=== PATIENT | male | born 1940 | race Caucasian/White ===

== ENCOUNTER 2017-07-10 07:47 | Inpatient (IN) | payer OTHER ==
[~2017-07-10] VITALS: Ht 180.3 cm; Wt 156.1 kg
[~2017-07-10 07:47] MED LIST: AMMONIUM LACTA225 GM TOP; ASCORBIC ACID500 MG PO; ASPIR 8181 MG PO; ATORVASTATIN CA20 MG PO; BACTRIM DS TAB1 EACH PO; CLOBETASOL PROP15 G1 TOP; DESONIDE15 G1 TOP; DESONIDE5 GM; DOXYCYCLINE; DOXYCYCLINE HY100 MG PO; ECONAZOLE NITRA15 GM TP; FUROSEMIDE40 MG PO; GABAPENTIN600 MG PO; KETOCONAZOLE120 ML TOP; LANTUS 3ML100 UNITS/ SC; LYRICA50 MG PO; LYRICA75 MG PO; METOLAZONE5 MG PO; METOPROLOL TART25 MG PO; MINOCYCLINE HC100 MG PO; Mupirocin TOP; NOVOLOG100 UNIT/1; PANTOPRAZOLE SO40 MG PO; TERAZOSIN HCL5 MG PO; WARFARIN SODIU2.5 MG PO
[2017-07-10] MEDS ORDERED: VANCOMYCIN 1GM/NS 250 ML 250 ML IV STA (08:11)
[2017-07-10] MEDS ORDERED: FAMOTIDINE 20 MG/2 ML VIAL IV STA (08:11)
[2017-07-10] MEDS ORDERED: SODIUM CHLORIDE 0.9% 1000ML 1,000 ML IV STA (08:11)
[2017-07-10] MEDS ORDERED: SODIUM CHLORIDE 0.9% 1000ML 1,000 ML IV SCH (08:14)
[2017-07-10] MEDS ORDERED: FENTANYL CITRATE/PF 100MCG/2 ML INJ IV SCH (08:15)
[2017-07-10] MEDS ORDERED: ONDANSETRON HCL INJ 2 MG/ML VIAL IV PRN (08:15)
[2017-07-10] MEDS ORDERED: DEXTROSE 50% SYRINGE 50 ML IV PRN (08:15)
[2017-07-10 08:30] LABS: BASOPHILS % 0.2 % (0.0-1.0); EOSINOPHILS # (AUTO) 0.1 (0.0-0.4); EOSINOPHILS % 0.5 % (0.0-6.0); HEMATOCRIT 40.2 % (38.2-49.6); LYMPHOCYTES # (AUTO) 0.8 (1.0-3.2); LYMPHOCYTES % 6.6 % (18.0-39.1); MEAN CORPUSCULAR HGB CONC 32.3 g/dL (31-35); MEAN CORPUSCULAR VOLUME 83.6 fL (81-99); MONOCYTES # (AUTO) 0.9 (0.2-0.8); MONOCYTES % 7.3 % (4.4-11.3); NEUTROPHILS # (AUTO) 10.9 (2.1-6.9); PLATELET COUNT 137 x10e3/uL (140-360); RED BLOOD COUNT 4.81 x10e6/uL (4.3-5.7)
[2017-07-10] MEDS ORDERED: PIPER-TAZ 3.375 GM 50 ML IV SCH (08:30)
[2017-07-10 08:40] LABS: INR 2.73; PROTHROMBIN TIME 27.2 seconds (11.9-14.5)
[2017-07-10 08:42] LABS: PARTIAL THROMBOPLASTIN TIME 72.5 seconds (23.8-35.5)
[2017-07-10 08:49] LABS: ALBUMIN 3.3 g/dL (3.5-5.0); ALBUMIN/GLOBULIN RATIO 0.9 (0.8-2.0); ANION GAP 13.6 mmol/L (8-16); CALCIUM 8.6 mg/dL (8.4-10.2); CREATININE, SERUM 1.92 mg/dL (0.72-1.25); MAGNESIUM 1.5 MG/DL (1.3-2.1); POTASSIUM 3.6 mmol/L (3.5-5.1)
[2017-07-10 08:57] LABS: B-TYPE NATRIURETIC PEPTIDE2 42.8 pg/mL (0-100)
[2017-07-10] MEDS ORDERED: VANCOMYCIN 1GM/NS 250 ML 250 ML IV SCH (09:00)
[2017-07-10] MEDS: PANTOPRAZOLE 40 MG 10ML VIAL IV SCH (09:05)
[2017-07-10 09:08] LABS: THYROID STIMULATING HORMONE 1.793 uIU/mL (0.350-4.940)
[2017-07-10] MEDS ORDERED: SODIUM CHLORIDE 0.9% 1000ML 1,000 ML IV ONE (09:15)
[2017-07-10 09:50] LABS: BILIRUBIN,URINE NEGATIVE (NEGATIVE); KETONES,URINE NEGATIVE (NEGATIVE); LEUKOCYTE ESTERASE ,URINE NEGATIVE (NEGATIVE); NITRITE,URINE NEGATIVE (NEGATIVE); URINE UROBILINOGEN 1 mg/dL (0.2 - 1)
[2017-07-10 09:55] LABS: CLARITY,URINE HAZY (CLEAR); COLOR,URINE YELLOW (YELLOW); PROTEIN,URINE DIPSTICK 1+ (NEGATIVE)
[2017-07-10 09:58] LABS: BACTERIA,URINE FEW /HPF; EPITHELIAL CELLS,URINE FEW /LPF; WBC,URINE (MAN) 0-5 /HPF (0-5)
[2017-07-10] MEDS ORDERED: DIPHENHYDRAMINE HCL INJ 50 MG/ML VIAL IV ONE (10:00)
--- NOTE | 2017-07-10 10:07 | Diagnostic Imaging Report ---
EXAMINATION: CHEST SINGLE (PORTABLE) INDICATION: Possible cellulitis. COMPARISON: CT chest 08/14/2016. FINDINGS: AP view TUBES and LINES: Median sternotomy wires are present. LUNGS: Right lung is well inflated. Left lung is elevated consistent with known left hemidiaphragmatic elevation. There are bibasilar atelectasis. There is mild prominence of the central pulmonary vasculature, consistent with pulmonary venous congestion. PLEURA: No pleural effusion or pneumothorax. HEART AND MEDIASTINUM: Cardiac size is mildly enlarged. BONES AND SOFT TISSUES: No acute osseous lesion. 1.6 cm metallic object overlying the left hemithorax, of unknown significance. UPPER ABDOMEN: No free air under the diaphragm. IMPRESSION: 1. Persistently elevated left hemidiaphragm, previously present. 2. Central pulmonary venous congestion. 3. 1.6 cm nonspecific metallic object overlying the left hemithorax. Signed by: Dr. Dillan Ibrahim M.D. on 07/10/2017 10:03 AM
[2017-07-10] MEDS: ACETAMINOPHEN 325 MG TAB PO PRN (10:10)
[2017-07-10] MEDS ORDERED: METHYLPREDNISOLONE SOD SUCC 125 MG/2ML VIAL IV SCH (10:15)
[2017-07-10] MEDS ORDERED: LEVALBUTEROL HCL SOLN NEBU 1.25 MG/3 ML NEB INH ONE (10:15)
[2017-07-10] MEDS ORDERED: IPRATROPIUM BROMIDE 0.02% 2.5 ML NEB NEB ONE (10:15)
[2017-07-10] MEDS ORDERED: METHYLPREDNISOLONE SOD SUCC 125 MG/2ML VIAL ONE (10:27)
[2017-07-10 10:44] LABS: CREATINE KINASE MB 5.8 ng/mL (0-5.0)
[2017-07-10 10:57] LABS: ABG HCO3 36 mmol/L (23-28); ABG PCO2 60 mmHg (41-51); ABG PH 7.38 (7.31-7.41); ABG PO2 78 mmHg (80-105)
[2017-07-10] MEDS: PIPER-TAZ 3.375 GM 50 ML IV SCH ×2 (11:43→17:00)
[2017-07-10] MEDS ORDERED: FENTANYL CITRATE/PF 100MCG/2 ML INJ IV PRN (12:15)
[2017-07-10] MEDS: METHYLPREDNISOLONE SOD SUCC 40 MG/ML VIAL IV SCH ×2 (12:36→17:23)
[2017-07-10] MEDS: DOXYCYCLINE 100MG/NS 100ML 100 ML IV SCH (12:36)
[2017-07-10] MEDS: INSULIN REGULAR, HUMAN 100 UNIT/1 ML 3ML VIAL SQ SCH ×2 (12:39→17:25)
[2017-07-10] MEDS: IPRATROPIUM BROMIDE 0.02% 2.5 ML NEB NEB SCH ×2 (13:40→19:30)
[2017-07-10] MEDS: LEVALBUTEROL HCL SOLN NEBU 1.25 MG/3 ML NEB INH SCH ×2 (13:40→19:30)
[2017-07-10 14:00] LABS: ABG PH 7.41 (7.31-7.41)
[2017-07-10 14:01] LABS: ABG HCO3 36 mmol/L (23-28); ABG PCO2 57 mmHg (41-51); ABG PO2 96 mmHg (80-105)
[2017-07-10] MEDS ORDERED: MORPHINE SULFATE 2 MG/ML SYR IV PRN (14:30)
[2017-07-10 15:47] VITALS: BP 151/94
--- NOTE | 2017-07-10 15:49 | Consultation ---
DATE OF CONSULTATION: July 10, 2017 [facility] MD: Mauri Loco PRIMARY CARE SYSTEM: [facility]. HISTORY: Mr. Souza is a pleasant 77-year-old gentleman with acute respiratory failure. Patient was at his baseline status recently. Patient with history of recurrent leg lymphedema. He has had cellulitis several times in the past, including hospitalizations for this issue. He started to develop fevers and chills. In the emergency room, he had 100.6 temperature. He had red warm area to right medial thigh and posterior calf. This pattern is nonresolving status. Patient without significant pain, however. He decided to come to the emergency room for evaluation. The findings were cooberated. He was admitted and treated for cellulitis. However, the patient was having some increased shortness of breath. He was given BiPAP for salvage. On BiPAP, he is with 92% oxygen saturation. I am consulted. PAST MEDICAL HISTORY: CABG with bypass a few years back, hypertension, diabetes, obesity, chronic lymphedema in bilateral legs, chronic left hemidiaphragm elevation, osteoarthritis, peripheral vascular disease per 1 report, chronic kidney disease. MEDICATIONS: Medication list reviewed per electronic record. Includes Zosyn, doxycycline, and 1 dose of vancomycin antibiotic swan. He is on bronchodilators and steroids among other medicines. ALLERGIES: SITAGLIPTIN, EXENATIDE, QUINAPRIL. SOCIAL HISTORY: No smoking. No drinking. No drugs. The patient is from [place], [place], where they have wood stoves, but good ventilation where he lived for 8 years. Then he went to [place] for 35 years, and then to [place]. He always lived in the city in [place] and the [place] area. 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 FAMILY HISTORY: Noncontributory. REVIEW OF SYSTEMS: Cannot get reliably as he is on respiratory assist device. PHYSICAL EXAMINATION VITALS: Afebrile now. Vital signs stable on the BiPAP. Otherwise, he was with tachypnea per nurses. GENERAL: Calm with full face mask on in bed. HEENT: Normocephalic and atraumatic. NECK: Supple. Throat midline. LUNGS: Bilateral air entry. Few rhonchi at bases. No wheezes. CARDIOVASCULAR: S1 and S2. No murmurs, rubs or gallops. ABDOMEN: Soft and nontender. EXTREMITIES: No clubbing. No cyanosis. There is lymphedema throughout the legs, 3+ edema. INTEGUMENT: No rash. No purpura. LABS: Potassium 3.6, bicarbonate 35, BUN 30, creatinine 1.9. White count 13, hematocrit 40 and platelets 137,000. RADIOGRAPHY: CT of chest shows nonspecific pulmonary nodule on August 14, 2016, elevated left hemidiaphragm, otherwise mostly unremarkable at that time. Current chest x-ray shows persistently elevated left hemidiaphragm, possible early central pulmonary venous congestion, and nonspecific metallic body over the left hemithorax. IMPRESSION AND PLAN 1. Abnormal chest radiography, possible mild pulmonary venous congestion. 2. Abnormal chest radiography, significantly elevated left hemidiaphragm: Etiology unknown. Could be due to chronic scarring atelectasis versus diaphragmatic paralysis or other etiology. 3. Abnormal July 2016 chest radiography with pulmonary nodule present. 4. Acute respiratory failure, on BiPAP for salvage. 5. Possible obstructive sleep apnea by history, although he does not give any history of treatment and poor historian. 6. Chronic lymphedema. 7. Admit with acute right leg cellulitis. 8. Reported coronary artery disease and peripheral vascular disease. 9. Hypertension. 10. Diabetes. 11. Chronic osteoarthritis. 12. No history of asthma. No gastroesophageal reflux disease. No allergies cited. Continue BiPAP. Wean him slow as he tolerates. Continue aggressive antibiotics for the cellulitis. Patient will need some treatment with steroids and bronchodilators. However, once these are shown to be stabilizing or having enough steroids from the respiratory point of view, will want to wean rapidly given the cellulitis that he has actively. Bronchodilators will be given. Oxygen protocol when not on the BiPAP. 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 Recommendation for continuation and follow up of his sleep related issue for which he does not know what the treatment was. Will follow along closely. Continue to avoid nephrotoxic agents if feasible and preserve kidney function. DVT prophylaxis is indicated. Thank you very much, Dr. Loco, for allowing me the chance to participate in the care of Mr. Souza. Do not hesitate to contact me if I can help in any way. Job#: [id number] JESSICA THOMPSON
[2017-07-10] MEDS ORDERED: METOPROLOL TART50 MG PO (15:56)
[2017-07-10 16:00] VITALS: BP 190/91
[2017-07-10] MEDS ORDERED: HYDRALAZINE HCL 20 MG/ML VIAL IV PRN (17:30)
[2017-07-10] MEDS: METOPROLOL TARTRATE 50 MG TAB PO SCH (18:00)
[2017-07-10 20:00] VITALS: BP 153/60
[2017-07-10] MEDS: FUROSEMIDE INJ 10 MG/ML 4 ML VIAL IV SCH (21:00)
[2017-07-10] MEDS: CLINDAMYCIN 600MG/D5W 50ML 50 ML IV SCH (21:30)
[2017-07-11] VITALS (7 sets, daily range): BP systolic 138–178; BP diastolic 62–95
[2017-07-11] MEDS: CLINDAMYCIN 600MG/D5W 50ML 50 ML IV SCH ×4 (00:10→17:09)
[2017-07-11] MEDS: METHYLPREDNISOLONE SOD SUCC 40 MG/ML VIAL IV SCH ×2 (00:30→05:17)
[2017-07-11] MEDS: DOXYCYCLINE 100MG/NS 100ML 100 ML IV SCH (00:55)
[2017-07-11] MEDS: INSULIN REGULAR, HUMAN 100 UNIT/1 ML 3ML VIAL SQ SCH ×5 (01:42→21:00)
[2017-07-11] MEDS: IPRATROPIUM BROMIDE 0.02% 2.5 ML NEB NEB SCH ×4 (02:12→23:10)
[2017-07-11] MEDS: LEVALBUTEROL HCL SOLN NEBU 1.25 MG/3 ML NEB INH SCH ×4 (02:12→23:10)
[2017-07-11] MEDS ORDERED: SODIUM CHLORIDE 0.9% 50ML 50 ML ONE (05:38)
[2017-07-11] MEDS: FUROSEMIDE INJ 10 MG/ML 4 ML VIAL IV SCH (08:01)
[2017-07-11] MEDS: PANTOPRAZOLE 40 MG 10ML VIAL IV SCH (08:01)
[2017-07-11] MEDS: METOPROLOL TARTRATE 50 MG TAB PO SCH ×2 (08:02→17:09)
[2017-07-11] MEDS: FUROSEMIDE 40 MG TAB PO SCH (09:30)
[2017-07-11 09:45] LABS: INR 2.19; PROTHROMBIN TIME 22.9 seconds (11.9-14.5)
[2017-07-11 09:54] LABS: ALBUMIN 3.2 g/dL (3.5-5.0); ALBUMIN/GLOBULIN RATIO 0.8 (0.8-2.0); ANION GAP 17.7 mmol/L (8-16); CALCIUM 8.4 mg/dL (8.4-10.2); CREATININE, SERUM 2.08 mg/dL (0.72-1.25); PHOSPHORUS 3.5 MG/DL (2.3-4.7); POTASSIUM 3.7 mmol/L (3.5-5.1)
[2017-07-11 10:05] LABS: CREATINE KINASE MB 16.9 ng/mL (0-5.0)
[2017-07-11 10:06] LABS: PARTIAL THROMBOPLASTIN TIME 58.7 seconds (23.8-35.5)
[2017-07-11 10:29] LABS: BASOPHILS % 0.1 % (0.0-1.0); HEMOGLOBIN 13.1 g/dL (14.0-18.0); LYMPHOCYTES # (AUTO) 0.5 (1.0-3.2); LYMPHOCYTES % 4.1 % (18.0-39.1); MEAN CORPUSCULAR HEMOGLOBIN 27.1 pg (28-32); MEAN CORPUSCULAR VOLUME 84.7 fL (81-99); MONOCYTES # (AUTO) 0.3 (0.2-0.8); MONOCYTES % 2.2 % (4.4-11.3); NEUTROPHILS # (AUTO) 11.2 (2.1-6.9); NEUTROPHILS % 92.8 % (38.7-80.0); PLATELET COUNT 157 x10e3/uL (140-360); RED BLOOD COUNT 4.84 x10e6/uL (4.3-5.7)
[2017-07-11] MEDS ORDERED: METOLAZONE5 MG PO (10:39)
[2017-07-11] MEDS ORDERED: SERTRALINE HCL50 MG PO (10:39)
[2017-07-11] MEDS ORDERED: TERAZOSIN HCL5 MG PO (10:39)
[2017-07-11] MEDS ORDERED: WARFARIN SODIU2.5 MG PO ×2 (10:39)
[2017-07-11] MEDS ORDERED: WARFARIN SOD 2.5 MG TAB PO SCH (10:45)
[2017-07-11 10:55] LABS: MAGNESIUM 1.9 MG/DL (1.3-2.1)
[2017-07-11] MEDS: ASPIRIN 325 MG TAB PO SCH (11:16)
[2017-07-11] MEDS: PREGABALIN 75 MG CAP PO SCH ×2 (11:16→17:08)
[2017-07-11] MEDS: LACTOBACILLUS ACIDOPHILUS CAPSULE PO SCH ×2 (11:16→17:08)
[2017-07-11] MEDS: INSULIN DETEMIR 100 UNIT/ML PEN SQ SCH (11:16)
--- NOTE | 2017-07-11 11:45 | Diagnostic Imaging Report ---
EXAMINATION: CHEST SINGLE (PORTABLE) INDICATION: \S\SOB \[id number] \S\[id number] COMPARISON: 07/10/2017 FINDINGS: AP view TUBES and LINES: None. LUNGS: Limited by body habitus. Pulmonary vascular congestion. Elevated left hemidiaphragm with adjacent haziness. PLEURA: No pneumothorax. HEART AND MEDIASTINUM: Cardiac silhouette is obscured. Enlarged mediastinal silhouette. Median sternotomy wires. BONES AND SOFT TISSUES: No acute osseous lesion. Soft tissues are unremarkable. UPPER ABDOMEN: No free air under the diaphragm. IMPRESSION: Pulmonary vascular congestion. Elevated left hemidiaphragm with adjacent haziness, representing atelectasis or small pleural effusion, which is decreased from prior exam. Signed by: Dr. Tad Murillo MD on 07/11/2017 11:42 AM
[2017-07-11 14:04] LABS: BAND NEUTROPHILS % (MANUAL) 1 %; LYMPHOCYTES % (MANUAL) 4 % (19-48); MONOCYTES % (MANUAL) 2 % (3.4-9.0); NEUTROPHILS % (MANUAL) 93 % (40-74); PLATELET ESTIMATE ADEQUATE; PLATELET MORPHOLOGY COMMENT NORMAL; RBC MORPHOLOGY COMMENT NORMAL
--- NOTE | 2017-07-11 14:52 | Progress Note ---
DATE: July 11, 2017 PULMONARY MEDICINE PROGRESS NOTE SUBJECTIVE: Mr. Souza was seen and examined at bedside. He continues to have great improvement over the 1st day. He is now off the BiPAP. He is sitting up comfortable on 3 L per minute by nasal cannula. He still has a lot of swelling to his legs. He did refuse in part to get Lasix today. Cellulitis looks a little bit better as well, and leg is less swollen. REVIEW OF SYSTEMS: No diarrhea. No double vision. OBJECTIVE VITALS: Afebrile. Vital signs noted per electronic record. GENERAL: In no acute distress. Alert and calm. HEENT: Normocephalic and atraumatic. NECK: Supple. Throat midline. LUNGS: Bilateral air entry. Few rare rhonchi. Much more clear today. CARDIOVASCULAR: S1 and S2. No murmurs, rubs or gallops. ABDOMEN: Soft and nontender. EXTREMITIES: No clubbing. No cyanosis. There is still the 3+ edema. INTEGUMENT: No rash. No purpura. LABS: Potassium 3.7, BUN 38, creatinine 2.1, glucose 505. CK 1633. Albumin is 3.2. INR is 2.19. White count 12. Blood culture with no growth at 24 hours. Urine culture no growth times 24 hours. Chest x-ray with pulmonary vascular congestion. Elevated left hemidiaphragm with distant haziness or present atelectasis or small pleural effusion, which has decreased from prior exam. IMPRESSION AND PLAN 1. Treat for possible fluid overload. 2. Acute respiratory failure, resolving. 3. Significant obesity. 4. Suspect obstructive sleep apnea. 5. Elevated hemidiaphragm and suspicion for intrathoracic restriction. 6. Probable secondary pulmonary hypertension. 7. Admit for cellulitis, right leg and edema. Follow up INR on the warfarin. Start incentive spirometry as x-ray is improving. We recommend more diuresis and followup of his kidney function, although he is partially deferring some medication dosing. Will follow along closely. The patient will have steroids stopped given the significant improvement. Furthermore, sliding scale coverage insulin will also be given to ensure better control. Repeat another chest x-ray tomorrow. Repeat blood work in the morning. Job#: [id number] JESSICA
--- NOTE | 2017-07-11 15:42 | Cardiology Report ---
DATE OF STUDY: July 10, [address] Fadi Canales. DOPPLER SCAN OF LOWER EXTREMITY VEINS The lower extremity veins were interrogated using the duplex scanning method. The greater saphenous veins bilaterally were nonvisualized. Elsewhere the veins were compressible without definite deep venous thrombosis. CONCLUSIONS: 1. Nonvisualized greater saphenous veins bilaterally. 2. In the areas well visualized, no definite deep venous thrombosis could be identified bilaterally. 3. Suboptimal study. Job#: [id number] EV cc:FADI CANALES MD
[2017-07-11] MEDS: METOLAZONE 5 MG TAB PO SCH (17:08)
[2017-07-11] MEDS ORDERED: INSULIN DETEMIR 100 UNIT/ML PEN SQ SCH (21:00)
[2017-07-11] MEDS: ATORVASTATIN 20 MG TAB PO SCH (21:06)
[2017-07-11] MEDS: TERAZOSIN HCL 5 MG CAP PO SCH (21:07)
[2017-07-12] VITALS: BP 135/56
[2017-07-12] MEDS: CLINDAMYCIN 600MG/D5W 50ML 50 ML IV SCH ×4 (00:44→17:08)
[2017-07-12 04:00] VITALS: BP 119/58
--- NOTE | 2017-07-12 06:25 | Diagnostic Imaging Report ---
CHEST SINGLE (PORTABLE), 07/12/2017 5:00 AM Technique: CHEST SINGLE (PORTABLE) Comparison: 07/11/2017 Clinical history: CHF Findings: See Impression Impression: Limited by body habitus and portable technique and motion. 1. Enlarged visualized cardiomediastinal contours poststernotomy, accentuated by technique. 2. Elevated left hemidiaphragm with overlying opacity, favor atelectasis. Signed by: Dr Albnaia Barakat MD on 07/12/2017 6:22 AM
[2017-07-12 06:41] LABS: BASOPHILS % 0.1 % (0.0-1.0); EOSINOPHILS % 0.1 % (0.0-6.0); HEMATOCRIT 37.9 % (38.2-49.6); HEMOGLOBIN 11.9 g/dL (14.0-18.0); LYMPHOCYTES # (AUTO) 1.3 (1.0-3.2); LYMPHOCYTES % 11.4 % (18.0-39.1); MEAN CORPUSCULAR HEMOGLOBIN 27.1 pg (28-32); MEAN CORPUSCULAR HGB CONC 31.4 g/dL (31-35); MEAN CORPUSCULAR VOLUME 86.3 fL (81-99); MONOCYTES % 8.3 % (4.4-11.3); NEUTROPHILS # (AUTO) 9.3 (2.1-6.9); NEUTROPHILS % 79.8 % (38.7-80.0); PLATELET COUNT 134 x10e3/uL (140-360); RED BLOOD COUNT 4.39 x10e6/uL (4.3-5.7); RED CELL DISTRIBUTION WIDTH 15.3 % (11.7-14.4)
[2017-07-12 06:53] LABS: INR 1.93; PROTHROMBIN TIME 20.7 seconds (11.9-14.5)
[2017-07-12] MEDS: LEVALBUTEROL HCL SOLN NEBU 1.25 MG/3 ML NEB INH SCH ×3 (06:58→23:02)
[2017-07-12] MEDS: IPRATROPIUM BROMIDE 0.02% 2.5 ML NEB NEB SCH ×3 (06:59→23:02)
[2017-07-12 07:13] LABS: ANION GAP 13.7 mmol/L (8-16); CALCIUM 8.1 mg/dL (8.4-10.2); CHOL/HDL RATIO 4.3 (3.9-4.7); CREATININE, SERUM 2.08 mg/dL (0.72-1.25); MAGNESIUM 1.8 MG/DL (1.3-2.1); POTASSIUM 3.7 mmol/L (3.5-5.1)
[2017-07-12 08:06] VITALS: BP 115/55
[2017-07-12 08:38] VITALS: BP 115/55
[2017-07-12] MEDS: PREGABALIN 75 MG CAP PO SCH ×2 (08:43→17:08)
[2017-07-12] MEDS: FUROSEMIDE 40 MG TAB PO SCH (08:43)
[2017-07-12] MEDS: METOPROLOL TARTRATE 50 MG TAB PO SCH ×2 (08:43→20:59)
[2017-07-12] MEDS: LACTOBACILLUS ACIDOPHILUS CAPSULE PO SCH ×2 (08:43→17:08)
[2017-07-12] MEDS: ASPIRIN 325 MG TAB PO SCH (08:43)
[2017-07-12] MEDS: METOLAZONE 5 MG TAB PO SCH ×2 (08:44→17:08)
[2017-07-12] MEDS: SERTRALINE HCL 50 MG TAB PO SCH (08:44)
[2017-07-12] MEDS: WARFARIN SOD 2.5 MG TAB PO SCH (08:44)
[2017-07-12] MEDS: INSULIN REGULAR, HUMAN 100 UNIT/1 ML 3ML VIAL SQ SCH ×4 (08:44→21:05)
[2017-07-12] MEDS: INSULIN DETEMIR 100 UNIT/ML PEN SQ SCH ×2 (08:45→21:05)
[2017-07-12] MEDS ORDERED: SODIUM CHLORIDE 0.45% 1,000 ML IV SCH (10:15)
[2017-07-12 12:00] VITALS: BP 117/50
--- NOTE | 2017-07-12 12:48 | Progress Note ---
DATE: July 12, 2017 PULMONARY MEDICINE PROGRESS NOTE SUBJECTIVE: Mr. Souza was seen and examined at bedside. He continues to have slow progress. CK level still increasing for now. The patient remains with improved ability to walk and ambulate. Oxygen saturation 96%. Five liters per minute by nasal cannula. He is off the rescue BiPAP for the most part. Patient with continued blood cultures that were noted to come back positive. Two out of two blood cultures came back positive. Patient, however, with leg slowly improving based on the physical appearance. Still some redness but less than before. REVIEW OF SYSTEMS: No headaches, no rash. OBJECTIVE VITAL SIGNS: Afebrile. Vital signs noted per electronic record. GENERALLY: No acute distress, , alert, calm, slight improvement in overall color. HEENT: Normocephalic, atraumatic. NECK: Supple. Throat midline. LUNGS: Bilateral air entry, a few rare rhonchi. CARDIOVASCULAR: S1 and S2. No murmurs, rubs or gallops. ABDOMINAL: Soft, nontender. EXTREMITIES: No clubbing, no cyanosis. There is still the 2 to 3+ edema. INTEGUMENT: No rash. No purpura. LABS: White count 12, hematocrit 37, platelets 134. INR 1.93. Bun 32, creatinine 2.1, potassium 3.7. Magnesium 1.8. CK 2297. Glucose 270. IMPRESSION AND PLAN 1. Gram-positive bacteremia. 2. Severe right leg cellulitis. 3. Acute respiratory failure, resolving. 4. Mild fluid overload. 5. Significant lymphedema. 6. Elevated hemidiaphragm, likely secondary to pulmonary hypertension. 7. Likely obstructive sleep apnea. Continue to mobilize him. Wean off oxygen. Repeat blood work tomorrow. Continue antibiotics for severe infection. Patient will need outpatient sleep study. Patient will also need further evaluation for the appropriate diuretic dose but for now will give him a little bit more fluid given the CK elevation. Will follow along closely. Job#: [id number] [place]
[2017-07-12 20:42] VITALS: BP 116/49
[2017-07-12] MEDS: TERAZOSIN HCL 5 MG CAP PO SCH (20:58)
[2017-07-12] MEDS: ATORVASTATIN 20 MG TAB PO SCH (21:05)
[2017-07-13] MEDS: CLINDAMYCIN 600MG/D5W 50ML 50 ML IV SCH ×4 (01:41→17:26)
[2017-07-13 05:00] VITALS: BP 117/44
[2017-07-13 06:46] LABS: BASOPHILS # (AUTO) 0.1 (0.0-0.1); BASOPHILS % 0.6 % (0.0-1.0); EOSINOPHILS # (AUTO) 0.3 (0.0-0.4); EOSINOPHILS % 3.4 % (0.0-6.0); HEMATOCRIT 39.9 % (38.2-49.6); HEMOGLOBIN 12.6 g/dL (14.0-18.0); LYMPHOCYTES % 20.5 % (18.0-39.1); MEAN CORPUSCULAR HGB CONC 31.6 g/dL (31-35); MEAN CORPUSCULAR VOLUME 85.4 fL (81-99); MONOCYTES # (AUTO) 0.9 (0.2-0.8); MONOCYTES % 9.4 % (4.4-11.3); NEUTROPHILS # (AUTO) 6.4 (2.1-6.9); NEUTROPHILS % 65.6 % (38.7-80.0); PLATELET COUNT 162 x10e3/uL (140-360); RED BLOOD COUNT 4.67 x10e6/uL (4.3-5.7); RED CELL DISTRIBUTION WIDTH 15.3 % (11.7-14.4)
[2017-07-13] MEDS: LEVALBUTEROL HCL SOLN NEBU 1.25 MG/3 ML NEB INH SCH ×3 (07:00→23:05)
[2017-07-13] MEDS: IPRATROPIUM BROMIDE 0.02% 2.5 ML NEB NEB SCH ×3 (07:00→23:05)
[2017-07-13 07:06] LABS: ANION GAP 12.8 mmol/L (8-16); CALCIUM 8.3 mg/dL (8.4-10.2); CREATININE, SERUM 1.83 mg/dL (0.72-1.25); POTASSIUM 3.8 mmol/L (3.5-5.1)
[2017-07-13] MEDS: INSULIN REGULAR, HUMAN 100 UNIT/1 ML 3ML VIAL SQ SCH ×4 (07:30→21:11)
[2017-07-13 08:00] VITALS: BP 137/73
[2017-07-13 08:00] LABS: INR 1.86; PROTHROMBIN TIME 20.1 seconds (11.9-14.5)
[2017-07-13] MEDS: FUROSEMIDE 40 MG TAB PO SCH ×2 (08:13→17:26)
[2017-07-13] MEDS: METOLAZONE 5 MG TAB PO SCH ×2 (08:13→17:26)
[2017-07-13] MEDS: LACTOBACILLUS ACIDOPHILUS CAPSULE PO SCH ×2 (08:13→17:26)
[2017-07-13] MEDS: PREGABALIN 75 MG CAP PO SCH ×2 (08:13→17:26)
[2017-07-13] MEDS: SERTRALINE HCL 50 MG TAB PO SCH (08:13)
[2017-07-13] MEDS: METOPROLOL TARTRATE 50 MG TAB PO SCH ×2 (08:14→21:12)
[2017-07-13] MEDS: INSULIN DETEMIR 100 UNIT/ML PEN SQ SCH ×2 (08:14→21:11)
[2017-07-13] MEDS: ASPIRIN 81 MG CHEW TAB PO SCH (08:14)
[2017-07-13] MEDS: WARFARIN SOD 2.5 MG TAB PO SCH (09:50)
[2017-07-13 12:00] VITALS: BP 149/60
--- NOTE | 2017-07-13 13:07 | Diagnostic Imaging Report ---
EXAM: CHEST SINGLE (PORTABLE), AP 1 view INDICATION: Congestive heart failure COMPARISON: AP view of the chest July 12, 2017 FINDINGS: LINES/TUBES: None LUNGS: Indeterminate opacity in the left lung base. PLEURA: The left hemidiaphragm is likely elevated. Indeterminate for effusion on the left. HEART AND MEDIASTINUM: Stable appearance given rotation. BONES AND SOFT TISSUES: No acute findings. IMPRESSION: No significant interval change given rotated exam. Signed by: Dr. Deidra De Los Santos M.D. on 07/13/2017 6:44 AM
--- NOTE | 2017-07-13 14:00 | Progress Note ---
DATE: July 13, 2017 PULMONARY MEDICINE PROGRESS NOTE SUBJECTIVE: Mr. Souza was seen and examined at bedside. Patient continues to have the blood cultures that are positive. Both of them have been identified as coagulase-negative staphylococcus. Patient with 94% oxygen saturation. Five liters per minute nasal cannula flow. Patient with moisture on legs. Was on fluids. REVIEW OF SYSTEMS: No headaches, no rash. OBJECTIVE VITAL SIGNS: Afebrile. Vital signs noted per electronic record. GENERALLY: No acute distress, alert and calm. HEENT: Normocephalic, atraumatic. NECK: Supple. Throat midline. LUNGS: Bilateral air entry, a few rhonchi. CARDIOVASCULAR: S1 and S2. No murmurs, rubs or gallops. ABDOMINAL: Soft, nontender. EXTREMITIES: No clubbing . INTEGUMENT: No rash. No purpura. IMPRESSION AND PLAN 1. Gram-positive cocci septicemia. 2. Severe cellulitis. 3. Chronic kidney disease. 4. Fluid overload clinically. 5. Acute respiratory failure, resolved mostly. Continue fluid status per primary physician. Soon will begin diuresis phase of therapy. Recheck blood cultures, ensure they go to negative. Clindamycin to be continued. Consideration of vancomycin if needed. Will follow along closely. Patient with improved CK and will check this tomorrow. Job#: [id number] [place]
[2017-07-13] MEDS ORDERED: DIPHENHYDRAMINE HCL 25 MG CAP PO PRN (14:30)
[2017-07-13 20:00] VITALS: BP 140/64
[2017-07-13] MEDS: ATORVASTATIN 20 MG TAB PO SCH (21:12)
[2017-07-13] MEDS: TERAZOSIN HCL 5 MG CAP PO SCH (21:12)
[2017-07-14] VITALS: BP 119/57
[2017-07-14] MEDS: CLINDAMYCIN 600MG/D5W 50ML 50 ML IV SCH ×3 (00:20→11:40)
[2017-07-14 04:00] VITALS: BP 127/52
[2017-07-14 06:53] LABS: BASOPHILS % 0.3 % (0.0-1.0); EOSINOPHILS # (AUTO) 0.4 (0.0-0.4); EOSINOPHILS % 4.8 % (0.0-6.0); HEMATOCRIT 39.1 % (38.2-49.6); HEMOGLOBIN 12.3 g/dL (14.0-18.0); LYMPHOCYTES # (AUTO) 1.6 (1.0-3.2); LYMPHOCYTES % 17.4 % (18.0-39.1); MEAN CORPUSCULAR HEMOGLOBIN 26.7 pg (28-32); MEAN CORPUSCULAR HGB CONC 31.5 g/dL (31-35); MEAN CORPUSCULAR VOLUME 84.8 fL (81-99); MONOCYTES # (AUTO) 1.1 (0.2-0.8); MONOCYTES % 11.9 % (4.4-11.3); NEUTROPHILS # (AUTO) 5.9 (2.1-6.9); NEUTROPHILS % 65.2 % (38.7-80.0); PLATELET COUNT 130 x10e3/uL (140-360); RED BLOOD COUNT 4.61 x10e6/uL (4.3-5.7); RED CELL DISTRIBUTION WIDTH 15.1 % (11.7-14.4)
[2017-07-14] MEDS: LEVALBUTEROL HCL SOLN NEBU 1.25 MG/3 ML NEB INH SCH ×3 (06:54→23:00)
[2017-07-14] MEDS: IPRATROPIUM BROMIDE 0.02% 2.5 ML NEB NEB SCH ×2 (06:54→17:00)
[2017-07-14 07:05] LABS: INR 1.97; PROTHROMBIN TIME 21.1 seconds (11.9-14.5)
[2017-07-14 07:26] LABS: ANION GAP 13.4 mmol/L (8-16); CALCIUM 8.3 mg/dL (8.4-10.2); CREATININE, SERUM 1.61 mg/dL (0.72-1.25); MAGNESIUM 1.6 MG/DL (1.3-2.1); POTASSIUM 3.4 mmol/L (3.5-5.1)
[2017-07-14] MEDS: INSULIN REGULAR, HUMAN 100 UNIT/1 ML 3ML VIAL SQ SCH ×4 (07:30→21:45)
[2017-07-14 07:34] VITALS: BP 143/56
[2017-07-14] MEDS: METOPROLOL TARTRATE 50 MG TAB PO SCH ×2 (08:15→21:24)
[2017-07-14] MEDS: LACTOBACILLUS ACIDOPHILUS CAPSULE PO SCH ×2 (08:15→17:09)
[2017-07-14] MEDS: FUROSEMIDE 40 MG TAB PO SCH (08:15)
[2017-07-14] MEDS: PREGABALIN 75 MG CAP PO SCH ×2 (08:15→17:09)
[2017-07-14] MEDS: METOLAZONE 5 MG TAB PO SCH ×2 (08:15→17:09)
[2017-07-14] MEDS: WARFARIN SOD 2.5 MG TAB PO SCH (08:15)
[2017-07-14] MEDS: SERTRALINE HCL 50 MG TAB PO SCH (08:15)
[2017-07-14] MEDS: INSULIN DETEMIR 100 UNIT/ML PEN SQ SCH ×2 (08:15→21:45)
[2017-07-14] MEDS: ASPIRIN 81 MG CHEW TAB PO SCH (08:15)
--- NOTE | 2017-07-14 13:00 | Progress Note ---
DATE: NO DICTATION, LENGTH 1 SECOND. Job#: [id number] MH
[2017-07-14] MEDS ORDERED: POTASSIUM CHLORIDE 20 MEQ TAB CR PO ONE (13:05)
[2017-07-14] MEDS ORDERED: ACETAZOLAMIDE SODIUM 500 MG/VIAL IV ONE (13:15)
[2017-07-14] MEDS ORDERED: VANCOMYCIN 1GM/NS 250 ML 250 ML IV SCH (13:30)
--- NOTE | 2017-07-14 13:30 | Progress Note ---
DATE: July 14, 2017 PULMONARY MEDICINE PROGRESS NOTE SUBJECTIVE: Mr. Souza was seen and examined at bedside. He continues to have slow progress. Still has a lot of swelling. IV fluids were locked off yesterday. He is walking a little bit more and more. Less dizziness. REVIEW OF SYSTEMS: No double vision. No headache. OBJECTIVE VITAL SIGNS: Afebrile. Vital signs noted per electronic record. GENERAL: No acute distress, alert and calm. HEENT: Normocephalic, atraumatic. NECK: Supple. Throat midline. LUNGS: Bilateral air entry, mildly decreased throughout, rare rhonchi, decreased especially at the right base. CARDIOVASCULAR: S1 and S2. No murmurs, rubs or gallops. ABDOMINAL: Soft, nontender. EXTREMITIES: No clubbing. No cyanosis. There is 3 to 4+ edema of right leg, 3+ edema to left leg. INTEGUMENT: No rash. No purpura. LABS: 3.4 potassium, 1.6 creatinine 49 BUN, 9.0 white count, 39 hematocrit, 130 platelets. Magnesium 1.6. IMPRESSION AND PLAN 1. Severe cellulitis. 2. Gram-positive cocci bacteremia, coagulase-negative staphylococcus. 3. Obesity, probably obstructive sleep apnea. 4. Obesity, possible obesity-hypoventilation syndrome. 5. Elevated hemidiaphragmatic thorax suggesting restrictive disease. 6. Possible secondary pulmonary hypertension. Continue diuretics. Will add a little bit of Diamox. Given the high creatinine, may need to lean a little bit more on loop diuretics. Follow up closely. Once again, patient recommended for resumption of positive airway pressure as an outpatient. He has pulmonary followup so consideration should be to go back to him to reinstate any positive airway pressure therapy that is needed whether it be home NIV versus PAP for sleep apnea. Will follow along closely. Repeat electrolytes tomorrow. Job#: [id number]
[2017-07-14] MEDS: LINEZOLID 600 MG TAB PO SCH ×2 (14:22→21:24)
[2017-07-14] MEDS: FUROSEMIDE INJ 10 MG/ML 4 ML VIAL IV SCH (17:09)
[2017-07-14] MEDS ORDERED: CLINDAMYCIN HCL 150 MG CAP PO SCH (18:00)
[2017-07-14] MEDS: TERAZOSIN HCL 5 MG CAP PO SCH (21:23)
[2017-07-14] MEDS: ATORVASTATIN 20 MG TAB PO SCH (21:23)
[2017-07-14] MEDS: OXYMETAZOLINE HCL 0.05% NAS 1 SPRAY BTL SCH (21:50)
[2017-07-15] MEDS: IPRATROPIUM BROMIDE 0.02% 2.5 ML NEB NEB SCH ×4 (01:35→14:15)
[2017-07-15] MEDS: LEVALBUTEROL HCL SOLN NEBU 1.25 MG/3 ML NEB INH SCH ×3 (01:36→23:00)
[2017-07-15 07:04] LABS: INR 2.06; PROTHROMBIN TIME 21.8 seconds (11.9-14.5)
[2017-07-15] MEDS: INSULIN REGULAR, HUMAN 100 UNIT/1 ML 3ML VIAL SQ SCH ×4 (07:30→21:05)
[2017-07-15 07:36] LABS: ANION GAP 13.6 mmol/L (8-16); CALCIUM 8.6 mg/dL (8.4-10.2); CREATININE, SERUM 1.79 mg/dL (0.72-1.25); MAGNESIUM 1.9 MG/DL (1.3-2.1); POTASSIUM 3.6 mmol/L (3.5-5.1)
[2017-07-15 08:00] VITALS: BP 113/62
[2017-07-15] MEDS: OXYMETAZOLINE HCL 0.05% NAS 1 SPRAY BTL SCH (09:00)
[2017-07-15] MEDS: WARFARIN SOD 2.5 MG TAB PO SCH (09:00)
[2017-07-15] MEDS: ASPIRIN 81 MG CHEW TAB PO SCH (09:00)
[2017-07-15] MEDS: METOPROLOL TARTRATE 50 MG TAB PO SCH ×2 (09:00→20:07)
[2017-07-15] MEDS: FUROSEMIDE INJ 10 MG/ML 4 ML VIAL IV SCH (09:00)
[2017-07-15] MEDS: INSULIN DETEMIR 100 UNIT/ML PEN SQ SCH ×2 (10:06→21:05)
[2017-07-15] MEDS: SERTRALINE HCL 50 MG TAB PO SCH (10:06)
[2017-07-15] MEDS: LACTOBACILLUS ACIDOPHILUS CAPSULE PO SCH ×2 (10:06→16:45)
[2017-07-15] MEDS: LINEZOLID 600 MG TAB PO SCH ×2 (10:06→21:05)
[2017-07-15] MEDS: PREGABALIN 75 MG CAP PO SCH ×2 (10:06→16:45)
[2017-07-15] MEDS: METOLAZONE 5 MG TAB PO SCH ×2 (10:06→16:45)
[2017-07-15] MEDS ORDERED: CALCIUM CARBONATE 500 MG CHEWABLE TABS PO ONE (11:25)
[2017-07-15 12:00] VITALS: BP 142/72
[2017-07-15] MEDS: FAMOTIDINE 20 MG TAB PO SCH (12:02)
--- NOTE | 2017-07-15 13:34 | Progress Note ---
DATE: July 15, 2017 PULMONARY MEDICINE PROGRESS NOTE SUBJECTIVE: Mr. Souza was seen and examined at bedside. He continues to have slow progress. He is tolerating the diuresis. However, blood pressure has fallen to about 118 systolic. Will continue to follow up. He is urinating a lot. Still with massive edema. Today, oxygen saturation was 84% on room air at rest. REVIEW OF SYSTEMS: No double vision. No headache. OBJECTIVE VITAL SIGNS: Afebrile. Vital signs noted per electronic record. GENERAL: No acute distress, alert and calm. HEENT: Normocephalic, atraumatic. NECK: Supple. Throat midline. LUNGS: Bilateral air entry, a few rare rhonchi. CARDIOVASCULAR: S1 and S2. No murmurs, rubs or gallops. ABDOMEN: Soft, nontender. EXTREMITIES: No clubbing. No cyanosis. There is 3+ edema. INTEGUMENT: No rash. No purpura. LABS: 52 BUN, 1.8 creatinine, 3.6 potassium, 9 white count, 39 hematocrit. IMPRESSION AND PLAN 1. Fluid overload, improving but definitely active. 2. Probably secondary to pulmonary hypertension. 3. Obstructive sleep apnea. 4. Obesity-hypoventilation. 5. Elevated hemidiaphragm. 6. Admit with severe cellulitis of the leg. 7. Possible gram-positive cocci bacteremia versus contamination. Blood cultures still pending. Will continue antibiotics at this time. Continue diuresis. Patient had home oxygen evaluation and qualified. We will try to arrange oxygen at home. Patient was recommended to try to adhere to treatment plans regarding sleep apnea and fluid overload and chronic hypoxemia. The patient cites that he has had issues in the past with most of these treatments, but our recommendations were given to him as high level to try to adhere to these specific recommendations. Will follow along closely as long as he is here. Discharge planning is underway. He needs very close followup with outpatient doctors. Job#: [id number]
[2017-07-15 16:00] VITALS: BP 145/79
[2017-07-15] MEDS ORDERED: LACTULOSE SYRUP 20 GM/30 ML UDC PO ONE ×2 (16:15)
[2017-07-15] MEDS ORDERED: FUROSEMIDE INJ 10 MG/ML 4 ML VIAL INJ SCH (17:00)
[2017-07-15] MEDS ORDERED: FUROSEMIDE 40 MG TAB PO SCH (18:00)
[2017-07-15] MEDS: TERAZOSIN HCL 5 MG CAP PO SCH (21:05)
[2017-07-15] MEDS: ATORVASTATIN 20 MG TAB PO SCH (21:05)
[2017-07-16] MEDS: LEVALBUTEROL HCL SOLN NEBU 1.25 MG/3 ML NEB INH SCH ×2 (07:00→13:15)
[2017-07-16] MEDS: IPRATROPIUM BROMIDE 0.02% 2.5 ML NEB NEB SCH ×2 (07:00→13:16)
[2017-07-16 08:18] VITALS: BP 141/60
[2017-07-16] MEDS: PREGABALIN 75 MG CAP PO SCH (08:18)
[2017-07-16] MEDS: METOPROLOL TARTRATE 50 MG TAB PO SCH (08:18)
[2017-07-16] MEDS: SERTRALINE HCL 50 MG TAB PO SCH (08:18)
[2017-07-16] MEDS: LINEZOLID 600 MG TAB PO SCH (08:18)
[2017-07-16] MEDS: FAMOTIDINE 20 MG TAB PO SCH (08:18)
[2017-07-16] MEDS: LACTOBACILLUS ACIDOPHILUS CAPSULE PO SCH (08:18)
[2017-07-16] MEDS: ASPIRIN 81 MG CHEW TAB PO SCH (08:18)
[2017-07-16] MEDS: INSULIN REGULAR, HUMAN 100 UNIT/1 ML 3ML VIAL SQ SCH ×2 (08:18→11:58)
[2017-07-16] MEDS: INSULIN DETEMIR 100 UNIT/ML PEN SQ SCH (08:18)
[2017-07-16] MEDS: METOLAZONE 5 MG TAB PO SCH (08:18)
[2017-07-16 08:21] VITALS: BP 141/66
[2017-07-16] MEDS: ACETAMINOPHEN 325 MG TAB PO PRN (08:34)
[2017-07-16 08:40] LABS: INR 1.97; PROTHROMBIN TIME 21.1 seconds (11.9-14.5)
[2017-07-16] MEDS ORDERED: FUROSEMIDE 40 MG TAB PO ONE (09:45)
[2017-07-16] MEDS: WARFARIN SOD 2.5 MG TAB PO SCH (10:12)
[2017-07-16 11:35] VITALS: BP 121/59
--- NOTE | 2017-07-16 12:23 | Progress Note ---
DATE: July 16, 2017 PULMONARY MEDICINE PROGRESS NOTE SUBJECTIVE: Mr. Souza was seen and examined at bedside. He continues to feel slightly better. Leg is less red. Legs also have less edema today. The patient, however, was converted to oral medicine as there is some loss of IV access, and the patient has some ideas about difficulties getting IV access. The patient is eating well. REVIEW OF SYSTEMS: No bleeding. No headache. OBJECTIVE VITAL SIGNS: Afebrile. Vital signs noted per electronic record. GENERAL: No acute distress, alert and calm. HEENT: Normocephalic, atraumatic. NECK: Supple. Throat midline. LUNGS: Bilateral air entry, decreased breath sounds throughout, rare rhonchi. CARDIOVASCULAR: S1 and S2. No murmurs, rubs or gallops. ABDOMEN: Soft, nontender. EXTREMITIES: No clubbing. No cyanosis. There is 3+ edema. INTEGUMENT: No rash. No purpura. IMPRESSION AND PLAN 1. Fluid overload. 2. Acute respiratory failure, improved. 3. Chronic respiratory failure. 4. Elevated hemidiaphragm. 5. Obstructive sleep apnea likely, not adherent. 6. Admit with acute right leg cellulitis. Continue current treatment. The patient will have further followup of fluid status. He will need electrolytes checked very soon. If not checked here, he will need them checked as an outpatient. Arbitrary when to discharge him as he is a readmit risk, but the patient is for the most part in strong belief that he can manage things as an outpatient. Antibiotics for the cellulitis. Follow up blood cultures to finalization, but they are negative so far on the new ones, so the first ones were likely contaminant. Job#: [id number]
[2017-07-16] MEDS ORDERED: ZYVOX600 MG PO (14:27)
--- NOTE | 2017-07-16 15:50 | Discharge Summary ---
PRIMARY CARE DOCTOR: Aleksey Jacobson MD FINAL DIAGNOSIS: Cellulitis. SECONDARY DIAGNOSES 1. Acute respiratory failure, resolved. 2. Stage-3 chronic kidney disease due to diabetes, stable. 3. Acute rhabdomyolysis, resolved. 4. Volume overload, better. 5. Paroxysmal atrial fibrillation on therapeutic Coumadin. BEVELING MACHINE OPERATOR: Dr. Lee, forestry fire aid. PROCEDURES/STUDIES PERFORMED: Bilateral lower extremity venous Doppler is negative for DVT. HISTORY: Per [facility] HOSPITAL COURSE: The patient was admitted. He developed allergic reaction to vancomycin. Therefore, clindamycin was used. It took a while for his redness to get better from the previous CABG vein-retrieval site. Subsequently, his blood culture came back coag-negative staph. This is likely a contaminant. His repeat blood cultures are negative. However, given this finding, his clindamycin was switched to Zyvox. Currently, the redness is completely gone. I will send him home on 5 more days of Zyvox to ensure complete clearance. The patient was diuresed as much as we can given his CKD, although he is going to need close followup. I have communicated this with his PCP. His CPK came down nicely with a little gentle hydration. Of course, this was followed by diuresis. His Coumadin is therapeutic for his paroxysmal atrial fibrillation. His creatinine remained relatively stable. CONDITION ON DISCHARGE: Stable. DISCHARGE MEDICATIONS: Please see medication reconciliation form. The patient was seen and examined today. It took 33 minutes total to discharge this patient. CARROLL LIMA M.D. Job#: [id number] cc:ALEKSEY JACOBSON MD
[2017-07-16] MEDS ORDERED: FUROSEMIDE 40 MG TAB PO SCH (17:00)
[2017-07-18] MEDS ORDERED: WARFARIN SOD 5 MG TAB PO SCH (09:00)
== END 2017-07-16 14:42 | disposition home or self-care (01) | DRG 871 ==
LOC: ER 07:47 → ERHOLD 09:29 → MED/SURG2 14:38
PROVIDERS: ADMIT Internal Medicine; ATTEND Internal Medicine
DX: A41.9 Sepsis, unspecified organism (principal); J96.00 Acute respiratory failure, unspecified whether with hypoxia or hypercapnia; Z68.42 Body mass index [BMI] 45.0-49.9, adult; M62.82 Rhabdomyolysis; L03.115 Cellulitis of right lower limb; E87.1 Hypo-osmolality and hyponatremia; E66.2 Morbid (severe) obesity with alveolar hypoventilation; E11.22 Type 2 diabetes mellitus with diabetic chronic kidney disease; E11.42 Type 2 diabetes mellitus with diabetic polyneuropathy; D21.9 Benign neoplasm of connective and other soft tissue, unspecified; I89.0 Lymphedema, not elsewhere classified; E78.5 Hyperlipidemia, unspecified; E11.51 Type 2 diabetes mellitus with diabetic peripheral angiopathy without gangrene; I12.9 Hypertensive chronic kidney disease with stage 1 through stage 4 chronic kidney disease, or unspecified chronic kidney disease; E11.65 Type 2 diabetes mellitus with hyperglycemia; M19.90 Unspecified osteoarthritis, unspecified site; I25.10 Atherosclerotic heart disease of native coronary artery without angina pectoris; N18.3 Chronic kidney disease, stage 3 (moderate); Z79.01 Long term (current) use of anticoagulants; I48.0 Paroxysmal atrial fibrillation; Z88.1 Allergy status to other antibiotic agents; E87.70 Fluid overload, unspecified; T36.8X5A Adverse effect of other systemic antibiotics, initial encounter; Y92.230 Patient room in hospital as the place of occurrence of the external cause; R65.20 Severe sepsis without septic shock; I27.20 Pulmonary hypertension, unspecified
CPT/HCPCS: 36415; 36600; 71045; 80048; 80053; 80061; 81001; 82550; 82553; 82805; 82948; 83036; 83605; 83690; 83735; 83880; 84100; 84443; 84484; 85025; 85610; 85730; 87040; 87071; 87086; 87186; 87205; 93005; 93970; 94640; 94660; 99284; J1200; J1940; J2543; J2920; J2930; J3370; J7030

== ENCOUNTER 2018-02-22 01:12 | Inpatient (IN) | payer OTHER ==
[2018-02-22] VITALS (9 sets, daily range): BP systolic 103–164; BP diastolic 26–96
[~2018-02-22] VITALS: Ht 180.3 cm; Wt 131.1 kg
[~2018-02-22 01:12] MED LIST changes: +METOPROLOL TART50 MG PO; +SERTRALINE HCL50 MG PO; +ZYVOX600 MG PO
[2018-02-22] MEDS ORDERED: SODIUM CHLORIDE 0.9% 1000ML 1,000 ML IV ONE ×2 (01:15)
[2018-02-22] MEDS ORDERED: CEFTRIAXONE SOD 1 GM VIAL IV ONE (01:15)
--- OUTSIDE RECORDS SUMMARY | 2018-02-22 01:15 | XMS REPORT ---
Author Author [facility] Address Unknown Phone Unavailable Care Team Providers Care Agricultural Specialist Name Role Phone IZAIAH IRENE Unavailable Unavailable Jae LIMA Unavailable Unavailable Problems This patient has no known problems. Allergies, Adverse Reactions, Alerts This patient has no known allergies or adverse reactions. Medications This patient has no known medications. Results Test Description Test Time Test Comments Text Results Atomic Results Result Comments CT, LIMITED/LOCALIZED FOLLOW-UP 2017-08-25 13:48:00 Reason for Exam:->lung nodule FINAL REPORT CT minimal. MEDICAL HISTORY: Lung nodule for potential lung biopsy. COMPARISON STUDY: CT scan dated July 28, 2014. CT scan of the thorax was performed for preprocedure planning. A 9 mm groundglass opacities in the left upper lobe on image 19. On July 28, 2014 this measured approximately 7 mm suggesting mild interval growth. It appears slightly more dense on today's study as well. Incidentally noted is significant tracheobronchomalacia with flattening of both the trachea and mainstem bronchi. Elevation of the left hemidiaphragm is seen with adjacent atelectasis or consolidation. The nodule is approximately 15.9 cm from the skin surface and is therefore not technically feasible for percutaneous biopsy, particularly given its small size. The results and findings were discussed with the patient and his . IMPRESSION: Slight increase in size over a three year span of groundglass/semisolid nodule in the left upper lobe. A slow-growing CONSTANTINE would be high in the differential. However, the nodule remains subcentimeter in size, is extremely deep and therefore not amenable to percutaneous biopsy. Signed: Izaiah Irene MDReport Verified Date/Time: 08/25/2017 13:48:03 Reading Location: [address] Body Reading Room /APTT 2017-08-25 11:46:00 PROTIME (BEAKER) (test obxi=372) 14.1 seconds 11.7-14.7 INR (BEAKER) (test japc=895) 1.1 <=5.9 PARTIAL THROMBOPLASTIN TIME (BEAKER) (test mdvs=816) 36.0 seconds 22.5-36.0 RECOMMENDED COUMADIN/WARFARIN INR THERAPY RANGESSTANDARD DOSE: 2.0 - 3.0 Inclu juanita: PROPHYLAXIS for venous thrombosis, systemic embolization; TREATMENT for adriana ous thrombosis and/or pulmonary embolus.HIGH RISK: Target INR is 2.5-3.5 for pat ients with mechanical heart valves.PLATELET [id number] 11:39:00* Test Item Value Reference Range Comments PLATELET COUNT (BEAKER) (test pyeo=886) 182 K/CU MM 150-450 CHEST SINGLE (PORTABLE) [place] [address] Patient Name: TONEY NAVA MR #: [id number] : 1940 Age/Sex: 77/M Req #: [id number] Adm Physician: CARROLL LIMA MD Ordered by: DENIS GRANADOS MD Report #: [id number] Location: MED/SURG2 Room/Bed: [facility] Procedure: [id number] DX/CHEST SINGLE (PORTABLE) Exam Date: 07/13/17 Exam Time: 0610 REPORT STATUS: Signed EXAM: CHEST SINGLE (PORTABLE), AP 1 v iew INDICATION: Congestive heart failure COMPARISON: AP view of the chest [facility] 2017 FINDINGS: LINES/TUBES: None LUNGS: Indeterminate opacit y in the left lung base. PLEURA: The left hemidiaphragm is likely elevated . Indeterminate for effusion on the left. HEART AND MEDIASTINUM: Stable a ppearance given rotation. BONES AND SOFT TISSUES: No acute findings. IMPRESSION: No significant interval change given rotated exam. Sign ed by: Dr. Umer De Los Santos M.D. on 07/13/2017 6:44 AM Dictated By: UMER DE LOS SANTOS MD 3 Trans cribed By: ANAT on 07/13/17643 COPY TO: DENIS GRANADOS MD CHEST SINGLE (PORTABLE) [place] [address] Patient Name: TONEY NAVA MR #: [id number] : 1940 Age/Sex: 77/M Req #: [id number] Adm Physician: CARROLL LIMA MD Ordered by: DENIS GRANADOS MD Report #: [id number] Location: [facility] Room/Bed: [facility] Procedure: [id number] DX/CHEST SINGLE (PORTABLE) Exam Date: 07/12/17 Exam Time: 0535 REPORT STATUS: Signed CHEST SINGLE (PORTABLE), 07/12/2017 5: 00 AM Technique: CHEST SINGLE (PORTABLE) Comparison: 07/11/2017 Clinical history: CHF Findings: See Impression Impression: Limited by body habitus and portable technique and motion. 1. Enlarged visualized cardiomedia stinal contours poststernotomy, accentuated by technique. 2. Elevated left h emidiaphragm with overlying opacity, favor atelectasis. Signed by: Dr Bernardino Barakat MD on 07/12/2017 6:22 AM Dictated By: BERNARDINO BARAKAT MD Electr onically Signed By: BERNARDINO BARAKAT MD on 07/12/17621 Transcribed By: ANAT on 07/12/17621 COPY TO: DENIS GRANADOS MD CHEST SINGLE (PORTABLE) [place] [address] Patient Name: TONEY NAVA MR #: [id number] : 1940 Age/Sex: 77/M Req #: [id number] Adm Physician: CARROLL LIMA MD Ordered by: CARROLL LIMA MD Report #: [id number] Location: MED/SURG2 Room/Bed: [facility] Procedure: [id number] X/CHEST SINGLE (PORTABLE) Exam Date: 07/11/17 Exam T johnny: 1055 REPORT STATUS: Signed EXAMINATION: CHEST SINGLE (PORTABLE) INDICATION: COMPARISON: 07/10/2017 FINDING S: AP view TUBES and LINES: None. LUNGS: Limited by body habitus . Pulmonary vascular congestion. Elevated left hemidiaphragm with adjacent haziness. PLEURA: No pneumothorax. HEART AND MEDIASTINUM: Cardiac si lhouette is obscured. Enlarged mediastinal silhouette. Median sternotomy wires . BONES AND SOFT TISSUES: No acute osseous lesion. Soft tissues are unremarkable. UPPER ABDOMEN: No free air under the diaphragm. IMP RESSION: Pulmonary vascular congestion. Elevated left hemidiaphragm with ad jacent haziness, representing atelectasis or small pleural effusion, which is decreased from prior exam. Signed by: Dr. Tad Yeh MD on 018 11:42 AM Dictated By: TAD YEH MD 114 Transcribed By: ANAT on 07/11/17 1142 C OPY TO: CARROLL LIMA MD CHEST SINGLE (PORTABLE) [place] [id number] [place] [address] Patient Name: TONEY NAVA MR #: [id number] : 1940 Age/Sex: 77/M Req #: [id number] Adm Physician: CARROLL LIMA MD Ordered by: ALEX CANALES MD, MD Report #: [id number] Location: [facility] Room/Bed: [place] [address] Procedure: [id number] DX/CHEST SINGLE (PORTABLE) Exam Date: 07/10/17 Ex am Time: 0920 REPORT STATUS: Signed EXAMINATION: CHEST SINGLE (PORTABL E) INDICATION: Possible cellulitis. COMPARISON: CT chest 07/26. FINDINGS: AP view TUBES and LINES: Median sternotomy wires are present. LUNGS: Right lung is well inflated. Left lung is eleva ryne consistent with known left hemidiaphragmatic elevation. There are bibasil ar atelectasis. There is mild prominence of the central pulmonary vasculature, consistent with pulmonary venous congestion. PLEURA: No pleural effusion or pneumothorax. HEART AND MEDIASTINUM: Cardiac size is mildly enlarged. BONES AND SOFT TISSUES: No acute osseous lesion. 1.6 cm metallic object overlying the left hemithorax, of unknown significance. UPPER ABDOMEN: No free air under the diaphragm. IMPRESSION: 1. Persistently elevated left hemidiaphragm, previously present. 2. Central pulmonary venous kyler estion. 3. 1.6 cm nonspecific metallic object overlying the left hemithorax. Signed by: Dr. Dillan Baca M.D. on 07/10/2017 10:03 AM Dictated By: DILLAN BACA MD 1003 Transcribed By: Brianna KHALIL on 07/10/17 1003 COPY TO: ALEX CANALES DUPLEX LWR B/L [place] [id number] [place] [address] Patient Name : TONEY NAVA MR #: [id number] : 1940 Age/Sex: 77/M Adm Physician : CARROLL LIMA MD Admit Date : 07/10/17 Location : MED/SURG2 Room/Bed : [facility] REPORT: Cardiology Repo rt DATE OF STUDY: July 10, [address] Alex toribio. DOPPLER SCAN OF LOWER EXTREMITY VEINS The lower extremity vei ns were interrogated using the duplex scanning method. The greater saphe nous veins bilaterally were nonvisualized. Elsewhere the veins were compress ible without definite deep venous thrombosis. CONCLUSIONS: 1. Nonvisual ized greater saphenous veins bilaterally. 2. In the areas well visualized, no definite deep venous thrombosis could be identified bilaterally. 3. Subopti mal study. Job#: [id number] EV cc: ALEX CANALES MD Signature Date Dicta ryne By: SOBIA MORRELL MD Transcribed By: EDS on 07/11/17 <Electronically signed by SOBIA MORRELL MD><<Signature on File>>07/12/17 7091 COPY TO:
--- OUTSIDE RECORDS SUMMARY | 2018-02-22 01:15 | XMS REPORT | Clinical Summary ---
Author Author JAYASHREE [facility] Organization [facility] Address Unknown Phone Unavailable Care Team Providers Care Salesperson [employer] Name Role Phone Shahab Chino MD PCP Unavailable Allergies Comments Active Allergy Reactions Severity Noted Date SWELLS Exenatide 12/24/2012 EFFECTS LIVER Sitagliptin 12/24/2012 Quinapril Swelling 02/03/2013 Medications End Date Status Medication Sig Dispensed Refills Start Date Active cefepime (MAXIPIME) MBP 1 Inject 1 g 0 g in 100 mL NS intravenously 5 daily. For 4 more days only Active lactulose (CHRONULAC) 20 Take 30 mLs 0 gram/30 mL solution (20 g total) 5 by mouth 2 (two) times daily. Active potassium chloride SA Take 1 tablet 0 (K-DUR,KLOR-CON) 20 MEQ (20 mEq 5 tablet total) by mouth daily. Active tamsulosin (FLOMAX) 0.4 Take 2 0 mg Cp24 24 hr capsule capsules (0.8 5 mg total) by mouth daily. Active aspirin 81 MG EC tablet Take 81 mg by 0 mouth daily. Active atorvastatin (LIPITOR) 80 Take 80 mg by 0 MG tablet mouth daily. Active betamethasone, augmented, Apply 0 (DIPROLENE) 0.05 % topically 2 ointment (two) times daily. Active furosemide (LASIX) 40 MG Take 40 mg by 0 tablet mouth daily. Active insulin aspart (NOVOLOG) Inject 35 0 100 unit/mL InPn Units subcutaneousl y 3 (three) times daily with meals. Active insulin detemir (LEVEMIR) Inject 67 0 100 unit/mL (3 mL) InPn Units injection subcutaneousl y 2 (two) times daily. Active Missing or Non-Formulary KETOCONAZOLE 0 Medication 2% 3-5X/WK . Active Missing or Non-Formulary 2 (two) times 0 Medication daily BETAMETHASONE DIPROPIONATE 0. 05% TO RASH . Active pregabalin (LYRICA) 150 Take 150 mg 0 MG capsule by mouth 2 (two) times daily. Active metOLazone (ZAROXOLYN) 5 Take 5 mg by 0 MG tablet mouth twice a week. Active metoprolol (LOPRESSOR) 25 Take 25 mg by 0 MG tablet mouth daily. Active pantoprazole (PROTONIX) Take 40 mg by 0 40 MG tablet mouth daily. Active terazosin (HYTRIN) 10 MG Take 10 mg by 0 capsule mouth nightly. Active warfarin (COUMADIN) 5 MG Take 5 mg by 0 tablet mouth daily TAKE 1 TAB DAILY EXCEPT 1.5 TABS MWF DIRECTED BY COUMADIN CLINIC. . 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 C 01/2013 showed occluded circumflex and OM1 with prograde collaterals. The right coronary artery showed a slight ostial lesion and the proximal RCA stent and 30-40% distal RCA lesion. [facility] 06/2014 at [facility]. Cath film reviewed by his pipe organ mechanic apprentice, Dr. Moeller, and she reported the following findings: LM 60% stenosis, RI 90%, LCx occluded, RCA distal 70%. Diabetes 02/01/2013 Mixed hyperlipidemia 02/01/2013 Benign essential hypertension 02/01/2013 Morbid obesity 02/01/2013 S/P coronary artery stent placement - RCA stent - [id number] 02/01/2013 Encounters Care Team Description Date Type Specialty John Paul Conklin MD Lung nodule 08/25/2017 Hospital Radiology Encounter Izaiah Irene MD Lung nodule (Primary Dx) 08/25/2017 Orders Only Lab John Paul Conklin MD Lung nodule (Primary Dx) 08/19/2017 Outside Orders Central Scheduling after 02/21/2017 Social History Date Tobacco Use Types Packs/Day Years Used Never Smoker Alcohol Use Drinks/Week oz/Week Comments No Sex Assigned at Date Recorded Not on file Industry Job Start Date Occupation Not on file Not on file Not on file Travel End Travel History Travel Start No recent travel history available. Last Filed Vital Signs Time Taken Vital Sign Reading 08/25/2017 1:05 PM CDT Blood Pressure 132/71 08/25/2017 1:05 PM CDT Pulse 64 08/25/2017 12:00 PM CDT Temperature 36.8 C (98.2 F) 08/25/2017 1:05 PM CDT Respiratory Rate 18 08/25/2017 1:05 PM CDT Oxygen Saturation 95% - Inhaled Oxygen - Concentration 08/25/2017 12:00 PM CDT Weight 135.2 kg (298 lb) 08/25/2017 12:00 PM CDT Height 175.3 cm (5' 9") 08/25/2017 12:00 PM CDT Body Mass Index 44.01 Plan of Treatment Not on file Implants Device Identifier Shelf Expiration Date Model / Serial / Lot Implanted Type Area Manufactur er 05/15/2019 08.501.001.20S / / [id number] Sternal Zipfix,With Needle Sterile Cardiovasc N/A: Sternum SYNTHES Pack Of 20 - [id number] [employer] Implanted: Qty: 1 on 07/18/2014 by Bertram Virk MD 05/15/2019 08.501.001.20S / / [id number] Sternal Zipfix,With Needle Sterile Cardiovasc N/A: Sternum SYNTHES Pack Of 20 - [id number] [employer] Implanted: Qty: 1 on 07/18/2014 by Bertram Virk MD Procedures Comments Procedure Name Priority Date/Time Associated Diagnosis CT LIMITED/LOCALIZED Routine 08/25/2017 FOLLOW-UP 1:32 PM CDT PLATELET COUNT STAT 08/25/2017 Lung nodule 11:02 AM CDT PT/APTT STAT 08/25/2017 Lung nodule 11:02 AM CDT after 02/21/2017 Results * CT LIMITED/LOCALIZED FOLLOW-UP (08/25/2017 1:32 PM CDT) Narrative Performed At FINAL REPORT [facility] CT minimal. MEDICAL HISTORY: Lung nodule for [...] amenable to percutaneous biopsy. Signed: Izaiah Irene MD Report Verified Date/Time:08/25/2017 13:48:03 Reading Location: [address] Body Reading Room Procedure Note Interface, External Ris In - 08/25/2017 1:50 PM CDT FINAL REPORT CT minimal. MEDICAL HISTORY: Lung [...] amenable to percutaneous biopsy. Signed: Izaiah Irene MD Report Verified Date/Time: 08/25/2017 13:48:03 Reading Location: [facility] C013Y CT Body Reading Room Performing Organization Address City/[facility] Centercode Phone Number GE RIS * PT/aPTT (08/25/2017 11:02 AM CDT) Protime 14.1 11.7 - 14.7 seconds [facility] INR 1.1 <=5.9 [facility] PTT 36.0 22.5 - 36.0 seconds [facility] Specimen Blood Narrative Performed At RECOMMENDED COUMADIN/WARFARIN INR THERAPY RANGES [facility] STANDARD DOSE: 2.0 - 3.0 Includes: PROPHYLAXIS for venous thrombosis, [facility] systemic embolization; TREATMENT for venous thrombosis and/or pulmonary embolus. HIGH RISK: Target INR is 2.5-3.5 for patients with mechanical heart valves. Performing Organization Address City/[facility] Centercode Phone Number [facility] [address] [place] [address] [facility] * Platelet count (08/25/2017 11:02 AM CDT) Platelets 182 150 - 450 K/CU MM [facility] Specimen Blood Performing Organization Address [facility] Centercode Phone Number [facility] [address] [place] [address] [facility] after 02/21/2017 Insurance Payer Benefit Subscriber ID Type Phone Address Plan / Group [employer] xxxxxxxxx Maps O ALL Contracted Advance Directives For more information, please contact: [facility] [address] [place] [address] Date Inactivated Comments Code Status Date Activated 08/01/2014 6:25 PM Full Code 07/17/2014 1:37 PM This code status was determined by: Patient 02/03/2013 6:33 PM All possible means of support, including: cardiac massage, mechanical ventilation, and defibrillation will be used to support life. Code ONE 02/03/2013 10:27 AM 02/03/2013 10:27 AM All possible means of support including;cardiac massage, mechanical ventilation, and defibrillation will be used to support life. Code ONE 02/03/2013 6:51 AM
--- OUTSIDE RECORDS SUMMARY | 2018-02-22 01:24 | XMS REPORT | Clinical Summary ---
Author Author JAYASHREE [facility] Organization [facility] Address Unknown Phone Unavailable Care Team Providers Care Oracle Ascp Consultant Name Role Phone Shahab Chino MD PCP [...] RCA stent and 30-40% distal RCA lesion. [facility] 06/2014 at [facility]. Cath film reviewed by his australian rules footballer, Dr. Moeller, and she reported the following findings: LM 60% stenosis, RI 90%, LCx occluded, RCA distal 70%. Diabetes 02/01/2013 Mixed hyperlipidemia 02/01/2013 Benign essential hypertension 02/01/2013 Morbid obesity 02/01/2013 S/P coronary artery stent placement - RCA stent - [id number] 02/01/2013 Encounters Care Team Description Date Type [...] Area Manufactur er 05/15/2019 08.501.001.20S / / [id number] Sternal Zipfix,With Needle Sterile Cardiovasc N/A: Sternum SYNTHES Pack Of 20 - [id number] [employer] Implanted: Qty: 1 on 07/18/2014 by Bertram Virk MD 05/15/2019 08.501.001.20S / / [id number] Sternal Zipfix,With Needle Sterile Cardiovasc N/A: Sternum SYNTHES Pack Of 20 - [id number] [employer] Implanted: Qty: 1 on 07/18/2014 by Bertram Virk MD Procedures Comments Procedure Name Priority Date/Time Associated Diagnosis CT LIMITED/LOCALIZED Routine 08/25/2017 FOLLOW-UP 1:32 PM CDT PLATELET COUNT STAT 08/25/2017 Lung nodule 11:02 AM CDT PT/APTT STAT 08/25/2017 Lung nodule 11:02 AM CDT after 02/21/2017 Results * CT LIMITED/LOCALIZED FOLLOW-UP (08/25/2017 1:32 PM CDT) Narrative Performed At FINAL REPORT [facility] CT minimal. MEDICAL HISTORY: Lung nodule for [...] MD Report Verified Date/Time:08/25/2017 13:48:03 Reading Location: [address] Body Reading Room Procedure Note [...] Report Verified Date/Time: 08/25/2017 13:48:03 Reading Location: [facility] C013Y CT Body Reading Room Performing Organization Address City/[facility] Servicescode Phone Number GE RIS * PT/aPTT (08/25/2017 11:02 AM CDT) Protime 14.1 11.7 - 14.7 seconds [facility] INR 1.1 <=5.9 [facility] PTT 36.0 22.5 - 36.0 seconds [facility] Specimen Blood Narrative Performed At RECOMMENDED COUMADIN/WARFARIN INR THERAPY RANGES [facility] STANDARD DOSE: 2.0 - 3.0 Includes: PROPHYLAXIS for venous thrombosis, [facility] systemic embolization; TREATMENT for venous thrombosis and/or pulmonary embolus. HIGH RISK: Target INR is 2.5-3.5 for patients with mechanical heart valves. Performing Organization Address City/[facility] Care Servicescode Phone Number [facility] [address] [place] [address] [facility] * Platelet count (08/25/2017 11:02 AM CDT) Platelets 182 150 - 450 K/CU MM [facility] Specimen Blood Performing Organization Address [facility] Servicescode Phone Number [facility] [address] [place] [address] [facility] after 02/21/2017 Insurance Payer Benefit Subscriber ID Type Phone Address Plan / Group [employer] xxxxxxxxx Maps O ALL Contracted Advance Directives For more information, please contact: [facility] [address] [place] [address] Date Inactivated Comments Code Status [...]
[2018-02-22 01:47] LABS: BASOPHILS % 0.3 % (0.0-1.0); EOSINOPHILS # (AUTO) 0.3 (0.0-0.4); EOSINOPHILS % 2.7 % (0.0-6.0); HEMATOCRIT 42.7 % (38.2-49.6); LYMPHOCYTES # (AUTO) 0.7 (1.0-3.2); LYMPHOCYTES % 6.1 % (18.0-39.1); MEAN CORPUSCULAR HEMOGLOBIN 29.2 pg (28-32); MEAN CORPUSCULAR HGB CONC 32.8 g/dL (31-35); MEAN CORPUSCULAR VOLUME 89.1 fL (81-99); MONOCYTES # (AUTO) 0.8 (0.2-0.8); MONOCYTES % 6.2 % (4.4-11.3); NEUTROPHILS # (AUTO) 10.3 (2.1-6.9); NEUTROPHILS % 84.3 % (38.7-80.0); PLATELET COUNT 257 x10e3/uL (140-360); RED BLOOD COUNT 4.79 x10e6/uL (4.3-5.7); RED CELL DISTRIBUTION WIDTH 14.2 % (11.7-14.4)
[2018-02-22 01:47] LABS: BILIRUBIN,URINE NEGATIVE (NEGATIVE); CLARITY,URINE CLEAR (CLEAR); COLOR,URINE YELLOW (YELLOW); KETONES,URINE NEGATIVE (NEGATIVE); LEUKOCYTE ESTERASE ,URINE NEGATIVE (NEGATIVE); NITRITE,URINE NEGATIVE (NEGATIVE); PROTEIN,URINE DIPSTICK 2+ (NEGATIVE); URINE UROBILINOGEN 0.2 mg/dL (0.2 - 1)
[2018-02-22 01:48] LABS: BACTERIA,URINE FEW /HPF; EPITHELIAL CELLS,URINE RARE /LPF; RBC,URINE 21-50 /HPF (0-5)
[2018-02-22 02:00] LABS: INR 1.81; PARTIAL THROMBOPLASTIN TIME 32.5 seconds (23.8-35.5); PROTHROMBIN TIME 22.4 seconds (11.9-14.5)
[2018-02-22 02:03] LABS: ALBUMIN 3.7 g/dL (3.5-5.0); ALBUMIN/GLOBULIN RATIO 0.9 (0.8-2.0); ANION GAP 18.1 mmol/L (8-16); CALCIUM 8.6 mg/dL (8.4-10.2); CREATININE, SERUM 2.22 mg/dL (0.72-1.25); POTASSIUM 5.1 mmol/L (3.5-5.1)
[2018-02-22] MEDS ORDERED: ACETAMINOPHEN 1000 MG/100 ML IV STA (02:08)
[2018-02-22 02:09] LABS: CREATINE KINASE MB 6.6 ng/mL (0-5.0)
[2018-02-22] MEDS ORDERED: ACETAMINOPHEN 1000 MG/100 ML 100 ML IV ONE (02:19)
[2018-02-22] MEDS ORDERED: [UNRECOGNIZED DRUG - OTHER] TOP (02:59)
[2018-02-22] MEDS ORDERED: LEVEMIR100 UNIT/1 (02:59)
[2018-02-22] MEDS ORDERED: WARFARIN SODIU2.5 MG PO ×2 (02:59)
[2018-02-22] MEDS ORDERED: GABAPENTIN300 MG PO (02:59)
--- NOTE | 2018-02-22 03:00 | Diagnostic Imaging Report ---
EXAM: CHEST SINGLE (PORTABLE), AP 1 view INDICATION: Fever COMPARISON: AP view of the chest July 13, 2017 FINDINGS: LINES/TUBES: None LUNGS: Persistent indeterminate opacity in the left lung base. PLEURA: Indeterminate for effusion on the left. Likely elevation of the left hemidiaphragm. HEART AND MEDIASTINUM: Stable appearance given rotation. Median sternotomy wires. BONES AND SOFT TISSUES: No acute findings. IMPRESSION: Stable appearance of the chest. Signed by: Dr. Deidra De Los Santos M.D. on 02/22/2018 2:56 AM
[2018-02-22] MEDS ORDERED: SODIUM CHLORIDE 0.9% 1000ML 1,000 ML IV SCH (03:37)
[2018-02-22] MEDS ORDERED: ONDANSETRON HCL INJ 2 MG/ML VIAL IV PRN (03:45)
[2018-02-22] MEDS ORDERED: DEXTROSE 50% SYRINGE 50 ML IV PRN (03:45)
--- OUTSIDE RECORDS SUMMARY | 2018-02-22 03:47 | XMS REPORT | Clinical Summary ---
Author Author JAYASHREE [facility] Organization [facility] Address Unknown Phone Unavailable Care Team Providers Care Health Safety Specialist Name Role Phone Shahab Chino MD PCP [...] RCA stent and 30-40% distal RCA lesion. [facility] 06/2014 at [facility]. Cath film reviewed by his automotive leasing sales representative, Dr. Moeller, and she reported the following findings: LM 60% stenosis, RI 90%, LCx occluded, RCA distal 70%. Diabetes 02/01/2013 Mixed hyperlipidemia 02/01/2013 Benign essential hypertension 02/01/2013 Morbid obesity 02/01/2013 S/P coronary artery stent placement - RCA stent - [id number] 02/01/2013 Encounters Care Team Description Date Type Specialty John Paul Conklin MD Lung nodule 08/25/2017 Hospital Radiology Encounter Izaiah Irene MD Lung nodule (Primary Dx) 08/25/2017 Orders Only Lab Jhon Paul Conklin MD Lung nodule (Primary Dx) [...] Area Manufactur er 05/15/2019 08.501.001.20S / / [id number] Sternal Zipfix,With Needle Sterile Cardiovasc N/A: Sternum SYNTHES Pack Of 20 - [id number] [employer] Implanted: Qty: 1 on 07/18/2014 by Bertram Virk MD 05/15/2019 08.501.001.20S / / [id number] Sternal Zipfix,With Needle Sterile Cardiovasc N/A: Sternum SYNTHES Pack Of 20 - [id number] [employer] Implanted: Qty: 1 on 07/18/2014 by Bertram Virk MD Procedures Comments Procedure Name Priority Date/Time Associated Diagnosis CT LIMITED/LOCALIZED Routine 08/25/2017 FOLLOW-UP 1:32 PM CDT PLATELET COUNT STAT 08/25/2017 Lung nodule 11:02 AM CDT PT/APTT STAT 08/25/2017 Lung nodule 11:02 AM CDT after 02/21/2017 Results * CT LIMITED/LOCALIZED FOLLOW-UP (08/25/2017 1:32 PM CDT) Narrative Performed At FINAL REPORT [facility] CT minimal. MEDICAL HISTORY: Lung nodule for [...] MD Report Verified Date/Time:08/25/2017 13:48:03 Reading Location: [address] Body Reading Room Procedure Note [...] Report Verified Date/Time: 08/25/2017 13:48:03 Reading Location: [facility] C013Y CT Body Reading Room Performing Organization Address City/[facility] Phone Number GE RIS * PT/aPTT (08/25/2017 11:02 AM CDT) Protime 14.1 11.7 - 14.7 seconds [facility] INR 1.1 <=5.9 [facility] PTT 36.0 22.5 - 36.0 seconds [facility] Specimen Blood Narrative Performed At RECOMMENDED COUMADIN/WARFARIN INR THERAPY RANGES [facility] STANDARD DOSE: 2.0 - 3.0 Includes: PROPHYLAXIS for venous thrombosis, [facility] systemic embolization; TREATMENT for venous thrombosis and/or pulmonary embolus. HIGH RISK: Target INR is 2.5-3.5 for patients with mechanical heart valves. Performing Organization Address City/[facility] Hospitalcode Phone Number [facility] [address] [place] [address] [facility] * Platelet count (08/25/2017 11:02 AM CDT) Platelets 182 150 - 450 K/CU MM [facility] Specimen Blood Performing Organization Address [facility] Hospitalcode Phone Number [facility] [address] [place] [address] [facility] after 02/21/2017 Insurance Payer Benefit Subscriber ID Type Phone Address Plan / Group [employer] xxxxxxxxx Maps O ALL Contracted Advance Directives For more information, please contact: [facility] [address] [place] [address] Date Inactivated Comments Code Status [...]
[2018-02-22] MEDS ORDERED: IBUPROFEN 600 MG TAB PO STA (04:13)
[2018-02-22] MEDS: CEFTRIAXONE SOD 1 GM VIAL IV SCH (04:29)
[2018-02-22] MEDS: GABAPENTIN 300 MG CAP PO SCH ×3 (05:36→16:24)
[2018-02-22] MEDS ORDERED: IBUPROFEN 600 MG TAB PO PRN (05:45)
[2018-02-22] MEDS ORDERED: INSULIN REGULAR, HUMAN 100 UNIT/1 ML 3ML VIAL SQ SCH (07:30)
[2018-02-22] MEDS: CLINDAMYCIN 600MG / 50ML 50 ML IV SCH ×3 (09:04→21:33)
[2018-02-22 09:40] LABS: CREATINE KINASE MB 4.7 ng/mL (0-5.0)
[2018-02-22] MEDS ORDERED: WARFARIN SOD 2.5 MG TAB PO SCH ×2 (11:30)
[2018-02-22] MEDS: INSULIN DETEMIR 100 UNIT/ML PEN SQ SCH (11:38)
[2018-02-22] MEDS: INSULIN LISPRO 100 UNIT/1 ML 3ML VIAL SQ SCH ×3 (11:38→21:31)
[2018-02-22] MEDS: ALBUTEROL/IPRATROPIUM 3 ML NEB NEB SCH ×3 (12:30→23:10)
[2018-02-22] MEDS ORDERED: FUROSEMIDE INJ 10 MG/ML 2 ML VIAL ONE (12:45)
[2018-02-22] MEDS ORDERED: FUROSEMIDE INJ 10 MG/ML 4 ML VIAL IV ONE (12:45)
[2018-02-22 13:24] LABS: ABG PH 7.26 (7.31-7.41)
[2018-02-22 13:25] LABS: ABG HCO3 31 mmol/L (23-28); ABG PCO2 70 mmHg (41-51); ABG PO2 280 mmHg (80-105)
[2018-02-22 13:59] LABS: ABG HCO3 34 mmol/L (23-28); ABG PCO2 58 mmHg (41-51); ABG PH 7.37 (7.31-7.41); ABG PO2 151 mmHg (80-105)
[2018-02-22] MEDS: BETAMETHASONE/CLOTRIMAZOLE CR 15 GM TUBE TOP SCH (16:24)
[2018-02-22] MEDS: LACTOBACILLUS ACIDOPHILUS CAPSULE PO SCH (16:24)
[2018-02-22] MEDS ORDERED: WARFARIN SOD 5 MG TAB PO SCH ×2 (17:00)
[2018-02-22] MEDS ORDERED: FUROSEMIDE INJ 10 MG/ML 4 ML VIAL IV NR (19:30)
[2018-02-22] MEDS ORDERED: LORAZEPAM INJ 2 MG/ML VIAL IV PRN ×2 (20:15→23:45)
[2018-02-22] MEDS: ATORVASTATIN 20 MG TAB PO SCH (21:00)
[2018-02-22] MEDS ORDERED: SODIUM CHLORIDE 0.9% 250ML 250 ML ONE (21:34)
[2018-02-22] MEDS ORDERED: HALOPERIDOL LACTATE 5 MG/ML VIAL IV PRN (23:45)
[2018-02-23] VITALS (21 sets, daily range): BP systolic 108–154; BP diastolic 36–89
--- NOTE | 2018-02-23 02:06 | Consultation ---
DATE OF CONSULTATION: February 22, 2018 PULMONARY MEDICINE CONSULT REFERRING PHYSICIAN: Dr. Loco REASON FOR REFERRAL: Respiratory failure. HISTORY OF PRESENT ILLNESS: Mr. Souza is a pleasant 77-year-old gentleman with respiratory failure. Patient presented to [facility] on February 22, 2018 with . Patient reportedly had fever of 102.9 degrees temperature. Patient denies having diarrhea. There was no initial altered mental status that was quite known. Patient presented to the emergency room. In the emergency room, he is seen to have altered mental status. He was given BiPAP to try to maintain his breathing. He was also given some diuresis given his leg edema. Patient had chest x-ray showing left diaphragmatic elevation, possible atelectasis versus infiltrate of left lung. White count was 12. ABG 7.26/70/280. At this point, it was elected for admission given extended illness. I am consulted. PAST MEDICAL HISTORY: CABG, bypass, hypertension, diabetes, obesity, chronic lymphedema in legs, chronic left hemidiaphragm elevation, osteoarthritis, peripheral vascular disease suggested per report, CKD. MEDICATIONS: Medication list reviewed per electronic record. Include warfarin, and ibuprofen, and clindamycin, ceftriaxone, and other medications, and gabapentin. ALLERGIES: SITAGLIPTIN, QUINAPRIL, EXENATIDE, VANCOMYCIN . SOCIAL HISTORY: No smoking, no drinking, no drugs. 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 FAMILY HISTORY: Noncontributory. REVIEW OF SYSTEMS: Cannot get as he is altered. OBJECTIVE VITALS: Afebrile right now. Vital signs noted stable on BiPAP, generally on BiPAP accepting it by full-face mask, but does not wake up. HEENT: Normocephalic, atraumatic. NECK: Supple. Throat midline. LUNGS: Bilateral air entry, decreased breath sounds, limited. CARDIOVASCULAR: S1, S2. No murmurs, rubs or gallops. ABDOMEN: Soft, nontender. EXTREMITIES: No clubbing, no cyanosis. There is lymphedema significant. INTEGUMENT: No rash except for the chronic stasis to the legs. No ulcer seen by me anteriorly. LABS: 5.1 potassium, 36 BUN, 2.2 creatinine, 12 white count, 43 hematocrit, 257,000 platelets. INR is 1.81. IMPRESSIONS AND PLAN 1. Acute respiratory failure. 2. Probable chronic respiratory failure, cor pulmonale. 3. Left hemidiaphragmatic elevation. 4. Treat for acute pneumonia. 5. History of coronary artery disease, coronary artery bypass graft. 6. Hypertension. 7. Diabetes. 8. Osteoarthritis. 9. Chronic kidney disease. 10. Warfarin use. Follow up serial neurologic exams. Patient needs to awaken more. Will switch psychotropic medications to include Haldol if needed. Continue BiPAP with airway cautions. Antibiotics can be continue reasonably. Ensure to cover broad-spectrum for pneumonia including atypical agents. Will follow up closely. As he gets better, will try to give him fluid negative as possible watching for this kidneys. Thank you very much, Dr. Loco, for this consult. Feel free to call for any reason. Job#: [id number] CQ
[2018-02-23] MEDS: CEFTRIAXONE SOD 1 GM VIAL IV SCH (03:00)
[2018-02-23] MEDS: ALBUTEROL/IPRATROPIUM 3 ML NEB NEB SCH ×4 (03:01→23:10)
[2018-02-23] MEDS: CLINDAMYCIN 600MG / 50ML 50 ML IV SCH ×4 (03:11→20:45)
[2018-02-23 05:02] LABS: BASOPHILS % 0.2 % (0.0-1.0); EOSINOPHILS # (AUTO) 0.1 (0.0-0.4); EOSINOPHILS % 0.9 % (0.0-6.0); HEMATOCRIT 35.3 % (38.2-49.6); HEMOGLOBIN 11.5 g/dL (14.0-18.0); LYMPHOCYTES # (AUTO) 1.2 (1.0-3.2); MEAN CORPUSCULAR HEMOGLOBIN 29.3 pg (28-32); MEAN CORPUSCULAR HGB CONC 32.6 g/dL (31-35); MEAN CORPUSCULAR VOLUME 89.8 fL (81-99); MONOCYTES % 9.4 % (4.4-11.3); NEUTROPHILS # (AUTO) 8.2 (2.1-6.9); PLATELET COUNT 123 x10e3/uL (140-360); RED BLOOD COUNT 3.93 x10e6/uL (4.3-5.7); RED CELL DISTRIBUTION WIDTH 14.8 % (11.7-14.4)
[2018-02-23 05:14] LABS: INR 1.62; PROTHROMBIN TIME 20.6 seconds (11.9-14.5)
[2018-02-23 05:57] LABS: ALBUMIN 2.8 g/dL (3.5-5.0); ALBUMIN/GLOBULIN RATIO 0.8 (0.8-2.0); ANION GAP 14.8 mmol/L (8-16); CALCIUM 7.9 mg/dL (8.4-10.2); CREATININE, SERUM 1.94 mg/dL (0.72-1.25); POTASSIUM 3.8 mmol/L (3.5-5.1)
[2018-02-23] MEDS ORDERED: FUROSEMIDE INJ 10 MG/ML 4 ML VIAL IV ONE (06:00)
[2018-02-23] MEDS: INSULIN LISPRO 100 UNIT/1 ML 3ML VIAL SQ SCH ×4 (08:00→21:38)
[2018-02-23] MEDS: ASPIRIN 81 MG CHEW TAB PO SCH (08:41)
[2018-02-23] MEDS: GABAPENTIN 300 MG CAP PO SCH ×2 (08:41→17:18)
[2018-02-23] MEDS: BETAMETHASONE/CLOTRIMAZOLE CR 15 GM TUBE TOP SCH ×2 (08:41→17:18)
[2018-02-23] MEDS: LACTOBACILLUS ACIDOPHILUS CAPSULE PO SCH ×2 (08:41→17:18)
[2018-02-23] MEDS: INSULIN DETEMIR 100 UNIT/ML PEN SQ SCH (09:00)
[2018-02-23] MEDS: ACETAMINOPHEN 325 MG TAB PO PRN (11:32)
[2018-02-23] MEDS ORDERED: WARFARIN SOD 2.5 MG TAB PO SCH ×2 (11:37→17:00)
[2018-02-23] MEDS: AZITHROMYCIN 500MG/NS 250 ML 250 ML IV SCH (12:30)
--- NOTE | 2018-02-23 13:16 | Progress Note ---
DATE: February 23, 2018 PULMONARY MEDICINE PROGRESS NOTE SUBJECTIVE: Mr. Souza was seen and examined at bedside. He continues to have very slow progress. We were able to take him on BiPAP for an hour today. He was able to eat some. Though after he became tachypneic, he went back on the BiPAP. Still very weak. He is urinating via Mccann. Somewhat altered mental status. REVIEW OF SYSTEMS: Unable to get reliably as he is altered. OBJECTIVE VITALS: Afebrile. Vital signs noted per electronic record. GENERAL: In no acute distress, but weak in bed. On BiPAP. HEENT: Normocephalic and atraumatic. NECK: Supple. Throat midline. LUNGS: Bilateral air entry. Decreased air entry. Rare rhonchi. CARDIOVASCULAR: S1 and S2. No murmurs, rubs or gallops. ABDOMEN: Soft and nontender. EXTREMITIES: No clubbing. No cyanosis. There is the significant lymphedema, 3+. INTEGUMENT: No rash. No purpura. LABS: BUN 37, creatinine 1.9, bicarbonate 29, potassium 3.8. White count 10, hematocrit 25, and platelets 123,000. IMPRESSION AND PLAN 1. Acute respiratory failure: On BiPAP for salvage. 2. Chronic respiratory failure, cor pulmonale. 3. Chronic obstructive pulmonary disease with exacerbation. 4. Pneumonia, acute. 5. Left hemidiaphragmatic elevation, chronic. 6. History of coronary artery disease. 7. Hypertension. 8. Diabetes. 9. Chronic kidney disease, warfarin use. Continue BiPAP salvage. Continue to give him breaks from BiPAP and allow him to eat. Continue some diuresis. Continue antibiotics for community-acquired pneumonia. Will follow along with his progress. Follow up his kidneys to ensure further stability. Job#: [id number] JESSICA
[2018-02-23] MEDS: WARFARIN SOD 5 MG TAB PO SCH (17:18)
[2018-02-23] MEDS: LINEZOLID 600 MG TAB PO SCH (21:15)
[2018-02-23] MEDS: ATORVASTATIN 20 MG TAB PO SCH (21:15)
[2018-02-24] VITALS (9 sets, daily range): BP systolic 103–131; BP diastolic 53–101
[2018-02-24] MEDS: CLINDAMYCIN 600MG / 50ML 50 ML IV SCH ×3 (02:03→14:35)
[2018-02-24] MEDS: ALBUTEROL/IPRATROPIUM 3 ML NEB NEB SCH ×5 (02:15→22:27)
[2018-02-24] MEDS: CEFTRIAXONE SOD 1 GM VIAL IV SCH (03:22)
[2018-02-24 05:22] LABS: BASOPHILS % 0.2 % (0.0-1.0); EOSINOPHILS # (AUTO) 0.3 (0.0-0.4); EOSINOPHILS % 3.1 % (0.0-6.0); HEMOGLOBIN 11.8 g/dL (14.0-18.0); LYMPHOCYTES % 9.9 % (18.0-39.1); MEAN CORPUSCULAR HEMOGLOBIN 29.1 pg (28-32); MEAN CORPUSCULAR HGB CONC 31.9 g/dL (31-35); MEAN CORPUSCULAR VOLUME 91.4 fL (81-99); MONOCYTES % 10.3 % (4.4-11.3); NEUTROPHILS # (AUTO) 7.7 (2.1-6.9); NEUTROPHILS % 76.1 % (38.7-80.0); PLATELET COUNT 126 x10e3/uL (140-360); RED BLOOD COUNT 4.05 x10e6/uL (4.3-5.7); RED CELL DISTRIBUTION WIDTH 14.7 % (11.7-14.4)
[2018-02-24 05:33] LABS: INR 1.47; PROTHROMBIN TIME 19.1 seconds (11.9-14.5)
[2018-02-24 06:00] LABS: ANION GAP 15.9 mmol/L (8-16); CALCIUM 8.1 mg/dL (8.4-10.2); CREATININE, SERUM 1.82 mg/dL (0.72-1.25); POTASSIUM 3.9 mmol/L (3.5-5.1)
--- NOTE | 2018-02-24 06:36 | Diagnostic Imaging Report ---
EXAM: CHEST SINGLE (PORTABLE), AP 1 view INDICATION: Pneumonia COMPARISON: AP view of the chest February 22, 2018 FINDINGS: LINES/TUBES: None LUNGS: Persistent indeterminate opacity in the left lung base. Persistent vascular congestion. PLEURA: Indeterminate for effusion on the left. HEART AND MEDIASTINUM: Stable enlargement of the cardiomediastinal silhouette. BONES AND SOFT TISSUES: Partially visualized median sternotomy wires. IMPRESSION: No interval change in appearance of the chest. Signed by: Dr. Deidra De Los Santos M.D. on 02/24/2018 6:33 AM
[2018-02-24] MEDS: INSULIN LISPRO 100 UNIT/1 ML 3ML VIAL SQ SCH ×4 (08:00→20:58)
[2018-02-24] MEDS: LACTOBACILLUS ACIDOPHILUS CAPSULE PO SCH ×2 (08:24→16:42)
[2018-02-24] MEDS: GABAPENTIN 300 MG CAP PO SCH ×2 (08:24→16:42)
[2018-02-24] MEDS: ASPIRIN 81 MG CHEW TAB PO SCH (08:24)
[2018-02-24] MEDS: LINEZOLID 600 MG TAB PO SCH (08:24)
[2018-02-24] MEDS: INSULIN DETEMIR 100 UNIT/ML PEN SQ SCH (09:01)
[2018-02-24] MEDS: BETAMETHASONE/CLOTRIMAZOLE CR 15 GM TUBE TOP SCH ×2 (09:01→16:42)
[2018-02-24] MEDS: AZITHROMYCIN 500MG/NS 250 ML 250 ML IV SCH (12:45)
[2018-02-24] MEDS: FUROSEMIDE INJ 10 MG/ML 4 ML VIAL IV SCH ×2 (13:59→20:58)
--- NOTE | 2018-02-24 14:02 | Progress Note ---
DATE: February 24, 2018 PULMONARY MEDICINE PROGRESS NOTE SUBJECTIVE: Mr. Souza was seen and examined at bedside. He continues to have slow progress. He is coming off BiPAP reliably for meals. He could possibly stay off BiPAP for longer, although he was not able to yesterday. He is eating most of his diet. Had a bowel movement. REVIEW OF SYSTEMS: No headaches. No nosebleeds. OBJECTIVE VITALS: Afebrile. Vital signs noted per electronic record. GENERAL: In no acute distress. Alert, calm and talking. HEENT: Normocephalic and atraumatic. NECK: Supple. Throat midline. LUNGS: Bilateral air entry is decreased. No wheezes. No rhonchi heard. CARDIOVASCULAR: S1 and S2. No murmurs, rubs or gallops. ABDOMEN: Soft and obese. EXTREMITIES: No clubbing. No cyanosis. He still has the edema present. INTEGUMENT: No rash. No purpura. LABS: Potassium 3.9, creatinine 1.8. White count 10, hematocrit 37. IMPRESSION AND PLAN 1. Acute respiratory failure, BiPAP salvage. 2. Chronic respiratory failure, cor pulmonale. 3. Chronic obstructive pulmonary disease with exacerbation. 4. Pneumonia. 5. Fluid overload. 6. Chronic kidney disease. Will arrange for PT to start working with the patient. Continue weaning off BiPAP. Continue to come off for meals. Lasix will be scheduled as his kidneys and blood pressure tolerating so far. Will follow along closely. Job#: [id number] JESSICA
[2018-02-24] MEDS: WARFARIN SOD 5 MG TAB PO SCH (16:42)
[2018-02-24] MEDS: ATORVASTATIN 40 MG TAB PO SCH (20:57)
[2018-02-24] MEDS ORDERED: INSULIN DETEMIR 100 UNIT/ML PEN SQ SCH (21:00)
[2018-02-25] VITALS (8 sets, daily range): BP systolic 122–159; BP diastolic 51–74
[2018-02-25] MEDS: ALBUTEROL/IPRATROPIUM 3 ML NEB NEB SCH ×6 (02:50→23:30)
[2018-02-25] MEDS: CEFTRIAXONE SOD 1 GM VIAL IV SCH (04:50)
[2018-02-25 05:12] LABS: BASOPHILS % 0.2 % (0.0-1.0); EOSINOPHILS # (AUTO) 0.2 (0.0-0.4); HEMATOCRIT 34.2 % (38.2-49.6); HEMOGLOBIN 11.1 g/dL (14.0-18.0); LYMPHOCYTES # (AUTO) 0.9 (1.0-3.2); LYMPHOCYTES % 9.2 % (18.0-39.1); MEAN CORPUSCULAR HEMOGLOBIN 28.8 pg (28-32); MEAN CORPUSCULAR HGB CONC 32.5 g/dL (31-35); MEAN CORPUSCULAR VOLUME 88.8 fL (81-99); MONOCYTES % 10.9 % (4.4-11.3); NEUTROPHILS # (AUTO) 7.2 (2.1-6.9); NEUTROPHILS % 77.2 % (38.7-80.0); PLATELET COUNT 129 x10e3/uL (140-360); RED BLOOD COUNT 3.85 x10e6/uL (4.3-5.7); RED CELL DISTRIBUTION WIDTH 14.4 % (11.7-14.4)
[2018-02-25 05:19] LABS: INR 1.55; PROTHROMBIN TIME 19.9 seconds (11.9-14.5)
[2018-02-25 05:23] LABS: CALCIUM 8.5 mg/dL (8.4-10.2); POTASSIUM 3.7 mmol/L (3.5-5.1)
[2018-02-25 05:37] LABS: ANION GAP 17.7 mmol/L (8-16); CREATININE, SERUM 1.75 mg/dL (0.72-1.25)
[2018-02-25] MEDS: INSULIN LISPRO 100 UNIT/1 ML 3ML VIAL SQ SCH ×4 (08:16→20:45)
[2018-02-25] MEDS: LACTOBACILLUS ACIDOPHILUS CAPSULE PO SCH ×2 (09:00→17:05)
[2018-02-25] MEDS: BETAMETHASONE/CLOTRIMAZOLE CR 15 GM TUBE TOP SCH ×2 (09:00→17:05)
[2018-02-25] MEDS: ASPIRIN 81 MG CHEW TAB PO SCH (09:00)
[2018-02-25] MEDS: GABAPENTIN 300 MG CAP PO SCH ×2 (09:00→17:05)
[2018-02-25] MEDS: FUROSEMIDE INJ 10 MG/ML 4 ML VIAL IV SCH ×2 (11:00→20:45)
[2018-02-25] MEDS: INSULIN DETEMIR 100 UNIT/ML PEN SQ SCH ×2 (11:20→20:45)
--- NOTE | 2018-02-25 11:27 | Consultation ---
DATE OF CONSULTATION: February 25, 2018 INFECTIOUS DISEASE CONSULTATION ATTENDING PHYSICIAN: Dr. Loco. REASON FOR CONSULTATION: Positive blood culture. Thank you, Dr. Loco, for asking me to see this patient. HISTORY OF PRESENT ILLNESS: Patient is a 77-year-old man referred for positive blood culture. He presented to the emergency department on 02/22/2018 with fever, chills, and altered mental status. He developed intermittent chills several days earlier and had one episode of unexplained watery stool. He also has had rhinorrhea and cough for several days. He denies nausea, vomiting, abdominal pain and dysuria. Also, he has chronic lymphedema and recurrent cellulitis but the legs are looking better. In the emergency department, he was noted to have temperature of 102.9 degrees Fahrenheit, pulse rate 112, respiratory rate 16, blood pressure 151/111, and oxygen saturation 95% on room air. Initial laboratory studies showed blood leukocyte count of 12,220 with 84.3% neutrophils, BUN 36, creatinine 2.22, blood glucose 459 and abnormal urinalysis. Chest x-ray showed stable appearance of the chest. Blood culture later grew Enterococcus faecalis. PAST MEDICAL HISTORY: Diabetes mellitus type 2, coronary artery disease, congestive heart failure, and lymphedema. PAST SURGICAL HISTORY: Bilateral cataract surgery, coronary artery bypass and cholecystectomy. ALLERGIES: VANCOMYCIN, EXENATIDE, QUINAPRIL, AND SITAGLIPTIN. MEDICATIONS: See MAR. The current antibiotics are ceftriaxone 2 g IV piggyback q. 24h hours and azithromycin 500 mg IV piggyback q.24 hours. IMMUNIZATION: He received pneumococcal vaccination in the past. He has not received influenza vaccine this season. FAMILY HISTORY: Noncontributory. SOCIAL HISTORY: No alcohol or tobacco use. REVIEW OF SYSTEMS: As per history of present illness. The patient is more awake since admission but still feels sick. PHYSICAL EXAMINATION GENERAL: Acutely ill. VITALS: T-max 100.2, pulse 77, respiratory rate 21, blood pressure 139/55, weight 303 pounds. HEENT: Normocephalic. There is no icterus or injection of conjunctivae. There is no ear or nasal discharge. Moist oral mucosa. No pharyngeal erythema or exudate. NECK: Supple. No meningismus. LUNGS: Good air entry bilaterally. HEART: Normal S1 and S2. ABDOMEN: Soft and nontender. EXTREMITIES: There is bilateral lymphedema with chronic skin changes and no acute erythema. There are chronic changes of the toenails as well. The dorsalis pedis and posterior tibial pulses are difficult to palpate due to lymphedema. SKIN: Chronic skin changes of the legs without acute erythema, warmth or tenderness. RN ORTHOPAEDIC: Awake, alert and oriented. There is decreased sensation to monofilament test of the feet. Nonfocal. LABORATORY DATA AND DIAGNOSTICS: WBC 9,280, hemoglobin 11.1, platelets 129,000, neutrophils 77.2, lymphocytes 9.2, mono 10.9, eosinophil 2, basophils 0.2. BUN 35, creatinine 1.75. Influenza antigen was negative. Blood culture grew Enterococcus faecalis. Urine culture showed mixed nory contamination. IMPRESSIONS 1. Sepsis, likely from urinary tract infection with bacteremia due to Enterococcus faecalis, present on admission. 2. Bronchitis, improving. 3. Diabetes mellitus type 2 with peripheral neuropathy, uncontrolled. 4. Bilateral lymphedema of the lower extremities without evidence of cellulitis. PLANS 1. Stop azithromycin and start penicillin 2 g IV piggyback q.8 hours. Continue ceftriaxone for synergy. Influenza vaccination was offered to the patient but he wants to wait until his outpatient clinic appointment. 2. Repeat urine culture with straight cath and await transthoracic echocardiogram report. Job#: [id number] RENNY THOMPSON
[2018-02-25] MEDS ORDERED: SODIUM CHLORIDE 0.9% 250ML 250 ML ONE (12:48)
[2018-02-25] MEDS: ACETAMINOPHEN 325 MG TAB PO PRN (13:01)
[2018-02-25] MEDS: AMPICILLIN SOD 2 GM/NS 100ML 100 ML IV SCH ×2 (13:01→21:00)
--- NOTE | 2018-02-25 13:53 | Progress Note ---
DATE: February 25, 2018 PULMONARY MEDICINE PROGRESS NOTE SUBJECTIVE: Mr. Souza was seen and examined at bedside. He continues to have steady progress. He is definitely more awake in bed. He is on oxygen at this time, mainly using BiPAP at night. The patient was able to eat well. He also had a bowel movement. The patient tells me he just had a fever, although it is not yet recorded. REVIEW OF SYSTEMS: No headaches. No bleeding. OBJECTIVE VITALS: Afebrile. Vital signs noted per electronic record. GENERAL: In no acute distress. Alert, calm and talking in bed. HEENT: Normocephalic and atraumatic. NECK: Supple. Throat midline. LUNGS: Bilateral air entry, limited but clear. CARDIOVASCULAR: S1 and S2. No murmurs, rubs or gallops. ABDOMEN: Soft and nontender. EXTREMITIES: No clubbing. No cyanosis. There is still stable lymphedema of the legs. INTEGUMENT: No rash. No purpura. LABS: Potassium 3.2, 35 BUN, 1.8 creatinine, 9.2 white count, 34 hematocrit. IMPRESSION AND PLAN 1. Acute respiratory failure, improved. 2. Chronic respiratory failure, cor pulmonale. 3. Chronic obstructive pulmonary disease with exacerbation. 4. Pneumonia. 5. Reported new fever as per the patient. 6. Weakness. Continue therapy. Continue working with the patient. Continue oxygen per protocol. BiPAP can be reasonable at this degree. The patient will need evaluation of his fever that was reportedly present and appropriate treatment. I do not see any leny phlebitis in his arms. He has no Mccann right now. Job#: [id number]
[2018-02-25] MEDS: WARFARIN SOD 5 MG TAB PO SCH (17:05)
[2018-02-25] MEDS: ATORVASTATIN 40 MG TAB PO SCH (20:45)
[2018-02-26] VITALS (7 sets, daily range): BP systolic 141–166; BP diastolic 57–70
[2018-02-26] MEDS: CEFTRIAXONE SOD 1 GM VIAL IV SCH (03:26)
[2018-02-26] MEDS: ALBUTEROL/IPRATROPIUM 3 ML NEB NEB SCH ×6 (04:20→23:00)
[2018-02-26] MEDS: AMPICILLIN SOD 2 GM/NS 100ML 100 ML IV SCH ×3 (05:22→22:05)
[2018-02-26 05:35] LABS: BASOPHILS % 0.4 % (0.0-1.0); EOSINOPHILS # (AUTO) 0.6 (0.0-0.4); EOSINOPHILS % 6.4 % (0.0-6.0); HEMATOCRIT 37.5 % (38.2-49.6); LYMPHOCYTES % 11.4 % (18.0-39.1); MEAN CORPUSCULAR HEMOGLOBIN 28.7 pg (28-32); MEAN CORPUSCULAR VOLUME 89.7 fL (81-99); MONOCYTES # (AUTO) 0.9 (0.2-0.8); MONOCYTES % 9.5 % (4.4-11.3); NEUTROPHILS # (AUTO) 6.5 (2.1-6.9); NEUTROPHILS % 71.7 % (38.7-80.0); PLATELET COUNT 172 x10e3/uL (140-360); RED BLOOD COUNT 4.18 x10e6/uL (4.3-5.7); RED CELL DISTRIBUTION WIDTH 14.4 % (11.7-14.4)
[2018-02-26 05:48] LABS: INR 1.73; PROTHROMBIN TIME 21.6 seconds (11.9-14.5)
[2018-02-26 05:57] LABS: ANION GAP 15.4 mmol/L (8-16); CALCIUM 9.4 mg/dL (8.4-10.2); CREATININE, SERUM 1.73 mg/dL (0.72-1.25); MAGNESIUM 2.2 MG/DL (1.3-2.1); POTASSIUM 3.4 mmol/L (3.5-5.1)
[2018-02-26] MEDS: LACTOBACILLUS ACIDOPHILUS CAPSULE PO SCH ×2 (08:07→16:17)
[2018-02-26] MEDS: GABAPENTIN 300 MG CAP PO SCH ×2 (08:07→16:17)
[2018-02-26] MEDS: FUROSEMIDE INJ 10 MG/ML 4 ML VIAL IV SCH ×2 (08:07→20:33)
[2018-02-26] MEDS: BETAMETHASONE/CLOTRIMAZOLE CR 15 GM TUBE TOP SCH ×2 (08:07→16:17)
[2018-02-26] MEDS: ASPIRIN 81 MG CHEW TAB PO SCH (08:07)
[2018-02-26] MEDS: INSULIN LISPRO 100 UNIT/1 ML 3ML VIAL SQ SCH ×4 (08:08→20:35)
[2018-02-26] MEDS: INSULIN DETEMIR 100 UNIT/ML PEN SQ SCH ×2 (08:08→20:35)
[2018-02-26] MEDS ORDERED: ACETAZOLAMIDE 250 MG TAB PO ONE (15:25)
[2018-02-26] MEDS ORDERED: POTASSIUM CHLORIDE 20 MEQ TAB CR PO ONE (15:35)
[2018-02-26] MEDS: WARFARIN SOD 5 MG TAB PO SCH (16:18)
--- NOTE | 2018-02-26 16:37 | Progress Note ---
DATE: February 26, 2018 PULMONARY MEDICINE PROGRESS NOTE SUBJECTIVE: Mr. Souza was seen and examined at bedside. He continues to have 96% oxygen saturation on 4 L per minute by nasal cannula. Patient was stand-by assist on getting up. He was able to take a shower. Mildly high glucose levels. REVIEW OF SYSTEMS: No headaches, no nosebleeds. OBJECTIVE VITALS: Afebrile. Vital signs noted per electronic record. GENERAL: In no acute distress, alert and calm. HEENT: Normocephalic and atraumatic. NECK: Supple. Throat midline. LUNGS: Bilateral air entry clear but decreased breath sounds. CARDIOVASCULAR: S1 and S2. No murmurs, rubs or gallops. ABDOMEN: Soft and nontender. EXTREMITIES: No clubbing. No cyanosis. There is still the large lymphedema/edema in the legs. INTEGUMENT: No rash. No purpura. LABS: Potassium 3.4, creatinine 0.7. White blood count is 9, hematocrit 37. IMPRESSION 1. Acute respiratory failure, improved and now off BiPAP. 2. Chronic respiratory failure, cor pulmonale. 3. Obstructive sleep apnea. 4. Enterococcus faecalis urinary tract infection. 5. Possible pneumonia, abnormal chest opacity. 6. Chronic left hemidiaphragm elevation, restrictive lung disease. 7. Hypokalemia. PLAN: Continue antibiotics for urinary tract infection and possible pneumonia. CPAP at night can still be used very effectively and he is still tolerating this. Give some potassium supplement. Continue anticoagulation given his conditions. Antibiotics ongoing. Diuretics are still present. Job#: [id number]
[2018-02-26] MEDS: TERAZOSIN HCL 5 MG CAP PO SCH (20:33)
[2018-02-26] MEDS: ATORVASTATIN 40 MG TAB PO SCH (20:34)
[2018-02-26] MEDS: GUAIFENESIN 200 MG/10 ML UDC PO PRN (22:47)
[2018-02-27] VITALS (7 sets, daily range): BP systolic 120–166; BP diastolic 58–69
[2018-02-27] MEDS: ALBUTEROL/IPRATROPIUM 3 ML NEB NEB SCH ×6 (03:45→23:00)
[2018-02-27] MEDS: CEFTRIAXONE SOD 1 GM VIAL IV SCH (04:48)
[2018-02-27] MEDS: AMPICILLIN SOD 2 GM/NS 100ML 100 ML IV SCH ×3 (05:42→21:53)
[2018-02-27 06:40] LABS: INR 2.16; PROTHROMBIN TIME 25.7 seconds (11.9-14.5)
[2018-02-27 06:51] LABS: ANION GAP 14.6 mmol/L (8-16); CALCIUM 8.8 mg/dL (8.4-10.2); CREATININE, SERUM 1.67 mg/dL (0.72-1.25); POTASSIUM 3.6 mmol/L (3.5-5.1)
[2018-02-27] MEDS: LACTOBACILLUS ACIDOPHILUS CAPSULE PO SCH ×2 (08:22→16:28)
[2018-02-27] MEDS: ASPIRIN 81 MG CHEW TAB PO SCH (08:22)
[2018-02-27] MEDS: BETAMETHASONE/CLOTRIMAZOLE CR 15 GM TUBE TOP SCH ×2 (08:22→16:28)
[2018-02-27] MEDS: FUROSEMIDE INJ 10 MG/ML 4 ML VIAL IV SCH ×2 (08:22→20:26)
[2018-02-27] MEDS: GABAPENTIN 300 MG CAP PO SCH ×2 (08:22→16:28)
[2018-02-27] MEDS: INSULIN DETEMIR 100 UNIT/ML PEN SQ SCH ×2 (08:23→20:26)
[2018-02-27] MEDS: INSULIN LISPRO 100 UNIT/1 ML 3ML VIAL SQ SCH ×4 (08:23→20:26)
[2018-02-27] MEDS: GUAIFENESIN 200 MG/10 ML UDC PO PRN ×2 (11:12→23:21)
--- NOTE | 2018-02-27 13:40 | Progress Note ---
DATE: February 27, 2018 SUBJECTIVE: I am covering for Dr. Loco today. The patient has his birthday today. He states that his dyspnea is at baseline. He still complains of redness and pain in his posterior calf. PHYSICAL EXAMINATION VITAL SIGNS: The patient is afebrile. The vital signs are stable. HEENT: Shows no facial swelling or erythema. The nasal mucosa is normal. The oropharynx is normal. LYMPHATIC: Shows no submandibular, cervical, or supraclavicular adenopathy. CARDIAC: Reveals a regular rate and rhythm with normal S1 and S2. LUNGS: Auscultation of the lungs shows clear breath sounds bilaterally. ABDOMEN: Soft, nontender. There is no rebound or guarding. EXTREMITIES: Show some erythema and cellulitis in the posterior aspect of the right calf. There is mild swelling. IMPRESSION 1. Iltqj-rj-hjijlip respiratory failure. 2. Obstructive sleep apnea. 3. Cellulitis of the lower extremity. 4. Urinary tract infection. PLAN 1. Continue current antibiotics. 2. CPAP at night. 3. Monitor blood sugars and adjust accordingly. Job#: [id number] CAMILLA
[2018-02-27] MEDS ORDERED: POTASSIUM CHLORIDE 20 MEQ TAB CR PO NR (15:30)
[2018-02-27] MEDS: WARFARIN SOD 5 MG TAB PO SCH (16:28)
--- NOTE | 2018-02-27 16:46 | Progress Note ---
DATE: February 27, 2018 PULMONARY MEDICINE PROGRESS NOTE SUBJECTIVE: Mr. Souza was seen and examined at bedside. Patient with 1.6 liters in, undocumented output. Voids times at least 11 are cited. A 95% oxygen saturation, 4 liters per minute by nasal cannula oxygen. Patient had birthday today and did have some sweets and his glucose was resultantly very high. REVIEW OF SYSTEMS: No headaches, no bleeding. OBJECTIVE VITALS: Afebrile. Vital signs noted per electronic record. GENERAL: In no acute distress, alert and calm. HEENT: Normocephalic and atraumatic. NECK: Supple. Throat midline. LUNGS: Bilateral moderate air entry, clear. CARDIOVASCULAR: S1 and S2. No murmurs, rubs or gallops. ABDOMEN: Soft and nontender. EXTREMITIES: No clubbing. No cyanosis. There is large lymphedema and 3+ leg edema. INTEGUMENT: No rash. No purpura. LABORATORY STUDIES: Potassium 2.6 and creatinine 1.7. White blood count is 9, hematocrit 37. INR is 2.16. IMPRESSION 1. Acute respiratory failure, extubate. 2. Chronic respiratory failure, off the ventilator now. Patient does likely have chronic cor pulmonale. 3. Chronic obstructive pulmonary disease with exacerbation. 4. Obstructive sleep apnea likely underlying. 5. Admit with possible pneumonia. 6. Chronic hemidiaphragmatic elevation. 7. Enterococcal urinary tract infection. PLAN: Continue IV antibiotics. Continue mobilizing. Continue diureses as he is tolerating this. Give him additional potassium today. Patient remains in guarded condition. He is improving. Job#: [id number] GANESH
[2018-02-27] MEDS: TERAZOSIN HCL 5 MG CAP PO SCH (20:26)
[2018-02-27] MEDS: ATORVASTATIN 40 MG TAB PO SCH (20:26)
[2018-02-28] VITALS (8 sets, daily range): BP systolic 106–151; BP diastolic 54–65
[2018-02-28] MEDS: CEFTRIAXONE SOD 1 GM VIAL IV SCH (04:03)
[2018-02-28] MEDS: ALBUTEROL/IPRATROPIUM 3 ML NEB NEB SCH ×6 (04:15→23:15)
[2018-02-28] MEDS: AMPICILLIN SOD 2 GM/NS 100ML 100 ML IV SCH ×3 (05:14→17:49)
[2018-02-28 05:23] LABS: ANION GAP 14.6 mmol/L (8-16); CREATININE, SERUM 1.67 mg/dL (0.72-1.25); POTASSIUM 3.6 mmol/L (3.5-5.1)
--- NOTE | 2018-02-28 06:47 | Diagnostic Imaging Report ---
EXAM: CHEST SINGLE (PORTABLE), AP 1 view INDICATION: Pneumonia COMPARISON: AP view of the chest February 24, 2018 FINDINGS: LINES/TUBES: None LUNGS: Persistent opacity in the left lung base. PLEURA: Indeterminate for effusion on the left. HEART AND MEDIASTINUM: Stable appearance. BONES AND SOFT TISSUES: No acute findings. IMPRESSION: No interval change. Signed by: Dr. Deidra De Los Santos M.D. on 02/28/2018 6:44 AM
[2018-02-28] MEDS: INSULIN LISPRO 100 UNIT/1 ML 3ML VIAL SQ SCH ×4 (08:31→21:00)
[2018-02-28] MEDS: FUROSEMIDE INJ 10 MG/ML 4 ML VIAL IV SCH ×2 (08:31→21:00)
[2018-02-28] MEDS: BETAMETHASONE/CLOTRIMAZOLE CR 15 GM TUBE TOP SCH ×2 (08:31→17:49)
[2018-02-28] MEDS: LACTOBACILLUS ACIDOPHILUS CAPSULE PO SCH ×2 (08:31→17:49)
[2018-02-28] MEDS: GABAPENTIN 300 MG CAP PO SCH ×2 (08:31→17:49)
[2018-02-28] MEDS: INSULIN DETEMIR 100 UNIT/ML PEN SQ SCH ×2 (08:31→21:00)
[2018-02-28] MEDS: ASPIRIN 81 MG CHEW TAB PO SCH (08:31)
[2018-02-28 12:37] LABS: INR 2.16; PROTHROMBIN TIME 25.7 seconds (11.9-14.5)
[2018-02-28] MEDS: DOCUSATE SODIUM 100 MG CAP PO SCH (17:49)
[2018-02-28] MEDS: WARFARIN SOD 5 MG TAB PO SCH (17:49)
--- NOTE | 2018-02-28 19:15 | Progress Note ---
DATE: February 28, 2018 PULMONARY MEDICINE PROGRESS NOTE SUBJECTIVE: Mr. Souza was seen and examined at the bedside. He continues to have slow progress. He says he could not use BiPAP yesterday as it is not as comfortable as his home machine. He continues on oxygen at this time at 4 liters per minute. Some constipation present. Chest x-ray was done which showed no interval change with persistent left lung base opacity. REVIEW OF SYSTEMS: No bleeding, no diarrhea. OBJECTIVE VITAL SIGNS: Afebrile. Vital signs noted per electronic record. GENERAL: In no acute distress, alert and calm. HEENT: Normocephalic, atraumatic. NECK: Supple. Throat midline. LUNGS: Bilateral air entry, moderate rhonchi. CARDIOVASCULAR: S1 and S2 . No murmurs, rubs or gallops. ABDOMEN: Soft, nontender. EXTREMITIES: No clubbing, no cyanosis. There is 2+ to 3+ edema of the legs. SKIN: No rash. No purpura. LABORATORY DATA: Potassium 2.6, BUN 34, creatinine 1.7, 9 white count, hematocrit 37, platelets 172,000. IMPRESSION 1. Acute respiratory failure, extubated. 2. Chronic pulmonary failure, likely cor pulmonale. 3. Obesity. 4. Hyperventilation syndrome. 5. Fluid overload. 6. Treat for pneumonia, acute. 7. Acute kidney failure on chronic kidney disease, slightly better. 8. Urinary tract infection with septicemia. 9. Continue IV antibiotics. 10. Continue bronchodilators. 11. Mobilize the patient as soon as possible. 12. Warfarin is on. 13. Continue diuresis, currently Lasix. Follow up electrolytes intermittently while he is on this. Job#: [id number]
[2018-02-28] MEDS: ATORVASTATIN 40 MG TAB PO SCH (21:00)
[2018-02-28] MEDS: TERAZOSIN HCL 5 MG CAP PO SCH (21:00)
[2018-02-28] MEDS: GUAIFENESIN 200 MG/10 ML UDC PO PRN (21:51)
[2018-03-01] VITALS: BP 144/77
[2018-03-01] MEDS: ALBUTEROL/IPRATROPIUM 3 ML NEB NEB SCH ×6 (00:15→20:40)
[2018-03-01] MEDS: CEFTRIAXONE SOD 1 GM VIAL IV SCH (03:45)
[2018-03-01 05:09] LABS: INR 2.22; PROTHROMBIN TIME 26.3 seconds (11.9-14.5)
[2018-03-01 05:19] LABS: ANION GAP 15.5 mmol/L (8-16); CALCIUM 8.9 mg/dL (8.4-10.2); CREATININE, SERUM 1.75 mg/dL (0.72-1.25); MAGNESIUM 2.1 MG/DL (1.3-2.1); POTASSIUM 3.5 mmol/L (3.5-5.1)
[2018-03-01] MEDS: AMPICILLIN SOD 2 GM/NS 100ML 100 ML IV SCH ×4 (05:56→18:07)
[2018-03-01 08:00] VITALS: BP 125/56
[2018-03-01 08:30] VITALS: BP 125/56
[2018-03-01] MEDS: INSULIN LISPRO 100 UNIT/1 ML 3ML VIAL SQ SCH ×4 (08:35→22:40)
[2018-03-01] MEDS: GABAPENTIN 300 MG CAP PO SCH ×2 (08:36→17:36)
[2018-03-01] MEDS: ASPIRIN 81 MG CHEW TAB PO SCH (08:36)
[2018-03-01] MEDS: FUROSEMIDE INJ 10 MG/ML 4 ML VIAL IV SCH ×2 (08:36→20:15)
[2018-03-01] MEDS: INSULIN DETEMIR 100 UNIT/ML PEN SQ SCH ×2 (08:36→22:40)
[2018-03-01] MEDS: LACTOBACILLUS ACIDOPHILUS CAPSULE PO SCH ×2 (08:36→17:36)
[2018-03-01] MEDS: DOCUSATE SODIUM 100 MG CAP PO SCH ×2 (08:36→17:35)
[2018-03-01] MEDS: BETAMETHASONE/CLOTRIMAZOLE CR 15 GM TUBE TOP SCH (08:36)
[2018-03-01] MEDS ORDERED: ZYVOX600 MG PO (10:43)
[2018-03-01 12:00] VITALS: BP 125/62
[2018-03-01] MEDS: BENZONATATE 100 MG CAP PO SCH ×2 (13:01→20:15)
[2018-03-01 16:00] VITALS: BP 155/62
[2018-03-01] MEDS: WARFARIN SOD 5 MG TAB PO SCH (17:35)
[2018-03-01 20:00] VITALS: BP 154/67
[2018-03-01] MEDS: TERAZOSIN HCL 5 MG CAP PO SCH (20:15)
[2018-03-01] MEDS: ATORVASTATIN 40 MG TAB PO SCH (20:15)
[2018-03-01] MEDS ORDERED: SALINE 0.65% NAS SOLN 1 SPRAY BTL ONE (21:15)
--- NOTE | 2018-03-01 22:28 | Progress Note ---
DATE: March 01, 2018 PULMONARY MEDICINE PROGRESS NOTE SUBJECTIVE: Mr. Souza was seen and examined at the bedside. Oxygen saturation 91%, just cane back on his oxygen. It was 96% saturation stable on 2 L per minute nasal cannula. a lot of leg swelling. He is eating. REVIEW OF SYSTEMS: No headaches, no nosebleeds. OBJECTIVE VITAL SIGNS: Afebrile. Vital signs noted per the chart record. GENERAL: In no acute distress, alert and calm. HEENT: Normocephalic, atraumatic. NECK: Supple. Throat midline. LUNGS: Bilateral air entry, a few rhonchi. CARDIOVASCULAR: S1 and S2 . No murmurs, rubs, or gallops. ABDOMEN: Soft, nontender. EXTREMITIES: No clubbing, no cyanosis. There is 3+ edema of the legs. SKIN: No rash or purpura. LABS: Potassium 3.5, BUN 35, and creatinine 1.7. White count 9, hematocrit 37. IMPRESSIONS 1. Obstructive sleep apnea. 2. Obesity hypoventilation syndrome. 3. Acute respiratory failure 4. Cor pulmonale. 5. Chronic obstructive pulmonary disease with exacerbation. 6. Hemidiaphragm elevation. 7. Admitted with enterococcal urinary tract infection. PLAN 1. Continue IV antibiotics. 2. Follow up repeat cultures. 3. Continue anticoagulation and have precautions for bleeding in followup. 4. Continue bronchodilators. 5. Wean off steroids and we will follow up . Job#: [id number] CF
[2018-03-02] VITALS: BP 159/65
[2018-03-02] MEDS: AMPICILLIN SOD 2 GM/NS 100ML 100 ML IV SCH ×3 (00:04→12:59)
[2018-03-02] MEDS: ALBUTEROL/IPRATROPIUM 3 ML NEB NEB SCH ×3 (03:25→12:10)
[2018-03-02] MEDS: CEFTRIAXONE SOD 1 GM VIAL IV SCH (03:49)
[2018-03-02 04:00] VITALS: BP 142/62
[2018-03-02 05:05] LABS: BASOPHILS % 0.5 % (0.0-1.0); EOSINOPHILS # (AUTO) 0.5 (0.0-0.4); EOSINOPHILS % 6.6 % (0.0-6.0); HEMATOCRIT 36.4 % (38.2-49.6); HEMOGLOBIN 11.7 g/dL (14.0-18.0); LYMPHOCYTES # (AUTO) 1.3 (1.0-3.2); MEAN CORPUSCULAR HEMOGLOBIN 28.6 pg (28-32); MEAN CORPUSCULAR HGB CONC 32.1 g/dL (31-35); MONOCYTES # (AUTO) 0.6 (0.2-0.8); MONOCYTES % 7.4 % (4.4-11.3); NEUTROPHILS # (AUTO) 5.3 (2.1-6.9); NEUTROPHILS % 67.4 % (38.7-80.0); PLATELET COUNT 206 x10e3/uL (140-360); RED BLOOD COUNT 4.09 x10e6/uL (4.3-5.7); RED CELL DISTRIBUTION WIDTH 13.9 % (11.7-14.4)
[2018-03-02 05:23] LABS: INR 2.22; PROTHROMBIN TIME 26.3 seconds (11.9-14.5)
[2018-03-02 05:27] LABS: ANION GAP 14.6 mmol/L (8-16); CALCIUM 8.9 mg/dL (8.4-10.2); CREATININE, SERUM 1.76 mg/dL (0.72-1.25); POTASSIUM 3.6 mmol/L (3.5-5.1)
[2018-03-02 07:10] VITALS: BP 131/69
[2018-03-02] MEDS: INSULIN LISPRO 100 UNIT/1 ML 3ML VIAL SQ SCH ×2 (07:30→11:30)
[2018-03-02 07:34] VITALS: BP 131/69
[2018-03-02] MEDS: ASPIRIN 81 MG CHEW TAB PO SCH (09:00)
[2018-03-02] MEDS: INSULIN DETEMIR 100 UNIT/ML PEN SQ SCH (09:00)
[2018-03-02] MEDS: LACTOBACILLUS ACIDOPHILUS CAPSULE PO SCH (09:00)
[2018-03-02] MEDS: FUROSEMIDE INJ 10 MG/ML 4 ML VIAL IV SCH (09:00)
[2018-03-02] MEDS: BENZONATATE 100 MG CAP PO SCH (09:00)
[2018-03-02] MEDS: DOCUSATE SODIUM 100 MG CAP PO SCH (09:00)
[2018-03-02] MEDS: GABAPENTIN 300 MG CAP PO SCH (09:00)
[2018-03-02 11:39] VITALS: BP 136/61
--- NOTE | 2018-03-02 14:23 | Progress Note ---
DATE: March 02, 2018 PULMONARY MEDICINE PROGRESS NOTE SUBJECTIVE: Mr. Souza was seen and examined at bedside. He continues to have steady progress. Still with 2 to 3+ edema in his legs. The patient, however, is back on 3 L per minute of oxygen. In no distress. He is eating well, and he is having bowel movements. REVIEW OF SYSTEMS: No headaches. No nosebleeds. OBJECTIVE VITAL SIGNS: Afebrile. Vital signs noted per electronic record. GENERAL: In no acute distress, alert and calm. HEENT: Normocephalic, atraumatic. NECK: Supple. Throat midline. LUNGS: Bilateral air entry, limited, rare rhonchi. CARDIOVASCULAR: S1 and S2 . No murmurs, rubs, or gallops. ABDOMEN: Soft, nontender. EXTREMITIES: No clubbing, no cyanosis. There is 3+ edema of the legs. SKIN: No rash or purpura. IMPRESSION AND PLAN 1. Chronic obstructive pulmonary disease with exacerbation. 2. Chronic respiratory failure, cor pulmonale. 3. Leg edema. 4. Elevated hemidiaphragm on the left side. 5. Pneumonia, acute. Continue current treatment. We will see if he is ready to go home. He already has home oxygen. Follow up as outpatient. Job#: [id number]
[2018-03-02] MEDS ORDERED: TESSALON PERLE100 MG PO (14:50)
--- NOTE | 2018-03-03 02:47 | Discharge Summary ---
PRIMARY CARE PHYSICIAN: Dr. Aleksey Jacobson with [facility]. FINAL DIAGNOSES 1. Enterococcal septicemia present on admission. 2. Cellulitis. 3. Chronic respiratory failure. 4. Acute respiratory failure, resolved. 5. Presumed pneumonia. 6. Morbid obesity. 7. Diabetes. 8. Mild acute renal failure, resolved. 9. Stage 3 chronic kidney disease due to diabetes, stable. 10. Paroxysmal atrial fibrillation, on therapeutic Coumadin. CONSULTANTS 1. Dr. Lee, safety instructor. 2. Dr. Nelson, infectious disease. PROCEDURES/STUDIES PERFORMED: Echocardiogram which did not show any vegetation. HISTORY: Per [facility] HOSPITAL COURSE: The patient got ampicillin with IV Rocephin for synergy for his enterococcal septicemia. The patient will go home on several more days of Zyvox to complete a 2-week course. The patient also had presumed pneumonia. He got a course of IV Rocephin and azithromycin. The patient was on BiPAP with IV Lasix. The patient was able to come off the BiPAP. However, still with chronic respiratory failure. Home oxygen will be set up. The patient was seen and examined today. It took 32 minutes total to discharge this patient. Repeat blood culture was negative which confirmed the bacteremia had cleared. CONDITION ON DISCHARGE: Improved. DISCHARGE MEDICATIONS: Please see medication reconciliation form. CARROLL LIMA M.D. Job#: [id number] GE cc:ALEKSEY JACOBSON MD
== END 2018-03-02 15:27 | disposition home health service (06) | DRG 871 ==
LOC: ER 01:21 → ERHOLD 03:44 → OBSVTOIN 11:30 → INTOOBSV 11:47 → MED/SURG2 12:34 → IMCU 15:01 → MED/SURG3 02-25 23:01
PROVIDERS: ADMIT Internal Medicine; ATTEND Internal Medicine
DX: A41.81 Sepsis due to Enterococcus (principal); J96.20 Acute and chronic respiratory failure, unspecified whether with hypoxia or hypercapnia; N17.9 Acute kidney failure, unspecified; Z68.41 Body mass index [BMI] 40.0-44.9, adult; L03.90 Cellulitis, unspecified; J44.1 Chronic obstructive pulmonary disease with (acute) exacerbation; J44.0 Chronic obstructive pulmonary disease with (acute) lower respiratory infection; E66.2 Morbid (severe) obesity with alveolar hypoventilation; M62.82 Rhabdomyolysis; R65.20 Severe sepsis without septic shock; E66.01 Morbid (severe) obesity due to excess calories; E11.22 Type 2 diabetes mellitus with diabetic chronic kidney disease; I12.9 Hypertensive chronic kidney disease with stage 1 through stage 4 chronic kidney disease, or unspecified chronic kidney disease; N18.3 Chronic kidney disease, stage 3 (moderate); I48.0 Paroxysmal atrial fibrillation; Z79.01 Long term (current) use of anticoagulants; E11.40 Type 2 diabetes mellitus with diabetic neuropathy, unspecified; Z79.4 Long term (current) use of insulin; I89.0 Lymphedema, not elsewhere classified; E11.65 Type 2 diabetes mellitus with hyperglycemia; I27.81 Cor pulmonale (chronic); R60.0 Localized edema; J20.9 Acute bronchitis, unspecified; G47.33 Obstructive sleep apnea (adult) (pediatric); J98.4 Other disorders of lung; E87.6 Hypokalemia; J98.6 Disorders of diaphragm; M19.90 Unspecified osteoarthritis, unspecified site; Z95.1 Presence of aortocoronary bypass graft
CPT/HCPCS: 36415; 36600; 71045; 80048; 80053; 81001; 82550; 82553; 82805; 82948; 83036; 83605; 83735; 84484; 85025; 85610; 85730; 87040; 87071; 87086; 87186; 87205; 87400; 93005; 93306; 94640; 94660; 96372; 97139; 99284; J0456; J0696; J1940; J2060; J7030; J7050

== ENCOUNTER 2018-03-28 13:25 | Inpatient (IN) | payer OTHER ==
[~2018-03-28] VITALS: Ht 180.3 cm; Wt 131.6 kg
[~2018-03-28 13:25] MED LIST changes: +GABAPENTIN300 MG PO; +LEVEMIR100 UNIT/1; +TESSALON PERLE100 MG PO; +[UNRECOGNIZED DRUG - OTHER] TOP
--- OUTSIDE RECORDS SUMMARY | 2018-03-28 13:28 | XMS REPORT | Clinical Summary ---
Author Author JAYASHREE [facility] Organization [facility] Address Unknown Phone Unavailable Care Team Providers Care Construction Job Cost Estimator Name Role Phone Shahab Chino MD PCP [...] RCA stent and 30-40% distal RCA lesion. [facility] 06/2014 at [facility]. Cath film reviewed by his selling specialist, Dr. Moeller, and she reported the following findings: LM 60% stenosis, RI 90%, LCx occluded, RCA distal 70%. Diabetes 02/01/2013 Mixed hyperlipidemia 02/01/2013 Benign essential hypertension 02/01/2013 Morbid obesity 02/01/2013 S/P coronary artery stent placement - RCA stent - [id number] 02/01/2013 Encounters Care Team Description Date Type Specialty John Paul Conklin MD Lung nodule 08/25/2017 Hospital Radiology Encounter Izaiah Irene MD Lung nodule (Primary Dx) 08/25/2017 Orders Only Lab John Paul Conklin MD Lung nodule (Primary Dx) 08/19/2017 Outside Orders Central Scheduling after 03/27/2017 Social History Date Tobacco Use Types Packs/Day [...] Area Manufactur er 05/15/2019 08.501.001.20S / / [id number] Sternal Zipfix,With Needle Sterile Cardiovasc N/A: Sternum SYNTHES Pack Of 20 - [id number] [employer] Implanted: Qty: 1 on 07/18/2014 by Bertram Virk MD 05/15/2019 [id number] / / [id number] Sternal Zipfix,With Needle Sterile Cardiovasc N/A: Sternum SYNTHES Pack Of 20 - [id number] [employer] Implanted: Qty: 1 on 07/18/2014 by Bertram Virk MD Procedures Comments Procedure Name Priority Date/Time Associated Diagnosis CT LIMITED/LOCALIZED Routine 08/25/2017 FOLLOW-UP 1:32 PM CDT PLATELET COUNT STAT 08/25/2017 Lung nodule 11:02 AM CDT PT/APTT STAT 08/25/2017 Lung nodule 11:02 AM CDT after 03/27/2017 Results * CT LIMITED/LOCALIZED FOLLOW-UP (08/25/2017 1:32 PM CDT) Narrative Performed At FINAL REPORT [facility] CT minimal. MEDICAL HISTORY: Lung nodule [...] MD Report Verified Date/Time:08/25/2017 13:48:03 Reading Location: [address] Body Reading Room Procedure Note [...] Report Verified Date/Time: 08/25/2017 13:48:03 Reading Location: [facility] C013Y CT Body Reading Room Performing Organization Address City/[facility] Phone Number GE RIS * PT/aPTT (08/25/2017 11:02 AM CDT) Protime 14.1 11.7 - 14.7 seconds [facility] INR 1.1 <=5.9 [facility] PTT 36.0 22.5 - 36.0 seconds [facility] Specimen Blood Narrative Performed At RECOMMENDED COUMADIN/WARFARIN INR THERAPY RANGES [facility] STANDARD DOSE: 2.0 - 3.0 Includes: PROPHYLAXIS for venous thrombosis, [facility] systemic embolization; TREATMENT for venous thrombosis and/or pulmonary embolus. HIGH RISK: Target INR is 2.5-3.5 for patients with mechanical heart valves. Performing Organization Address City/[facility] Hospital[facility] Phone Number [facility] [address] [place] [address] [facility] * Platelet count (08/25/2017 11:02 AM CDT) Platelets 182 150 - 450 K/CU MM [facility] Specimen Blood Performing Organization Address [facility] Hospitalcode Phone Number [facility] [address] [place] [address] [facility] after 03/27/2017 Insurance Payer Benefit Subscriber ID Type Phone Address Plan / Group [employer] xxxxxxxxx Maps O ALL Contracted [place] Directives For more information, please contact: [facility] [address] [place] [address] Date Inactivated Comments Code Status [...]
[2018-03-28] MEDS ORDERED: VANCOMYCIN 1GM/NS 250 ML 250 ML IV STA (14:21)
[2018-03-28] MEDS ORDERED: ACETAMINOPHEN 325 MG TAB PO ONE (14:30)
--- NOTE | 2018-03-28 15:46 | Diagnostic Imaging Report ---
Examination: Single AP view of the chest. COMPARISON: 02/28/2018 INDICATION: Fever DISCUSSION: Persistent left lower lobe and lingular airspace opacity, possibly with superimposed pleural effusion. The right lung is clear. Postsurgical changes of the mediastinum. No acute osseous abnormality. IMPRESSION: Persistent left lower lobe and lingular airspace opacity, possibly with superimposed pleural effusion. This is partially attributable to left hemidiaphragmatic elevation as seen on CT chest 08/14/2016. Signed by: Dr. Bertram Savage M.D. on 03/28/2018 3:43 PM
[2018-03-28 16:50] LABS: BASOPHILS % 0.2 % (0.0-1.0); EOSINOPHILS # (AUTO) 0.2 (0.0-0.4); HEMATOCRIT 43.8 % (38.2-49.6); HEMOGLOBIN 14.4 g/dL (14.0-18.0); LYMPHOCYTES # (AUTO) 1.1 (1.0-3.2); LYMPHOCYTES % 6.4 % (18.0-39.1); MEAN CORPUSCULAR HEMOGLOBIN 29.4 pg (28-32); MEAN CORPUSCULAR HGB CONC 32.9 g/dL (31-35); MEAN CORPUSCULAR VOLUME 89.6 fL (81-99); MONOCYTES % 6.1 % (4.4-11.3); NEUTROPHILS # (AUTO) 14.1 (2.1-6.9); NEUTROPHILS % 85.8 % (38.7-80.0); PLATELET COUNT 170 x10e3/uL (140-360); RED BLOOD COUNT 4.89 x10e6/uL (4.3-5.7); RED CELL DISTRIBUTION WIDTH 14.9 % (11.7-14.4)
[2018-03-28] MEDS: CLINDAMYCIN 300MG 50 ML IV SCH (16:58)
[2018-03-28 17:09] LABS: INR 2.23; PROTHROMBIN TIME 26.4 seconds (11.9-14.5)
[2018-03-28 17:10] LABS: PARTIAL THROMBOPLASTIN TIME 64.4 seconds (23.8-35.5)
[2018-03-28 17:19] LABS: ALBUMIN 3.8 g/dL (3.5-5.0); ALBUMIN/GLOBULIN RATIO 0.9 (0.8-2.0); ANION GAP 15.7 mmol/L (8-16); CALCIUM 9.3 mg/dL (8.4-10.2); CREATININE, SERUM 1.92 mg/dL (0.72-1.25); POTASSIUM 3.7 mmol/L (3.5-5.1)
[2018-03-28 17:57] LABS: CLARITY,URINE CLEAR (CLEAR); COLOR,URINE YELLOW (YELLOW); LEUKOCYTE ESTERASE ,URINE NEGATIVE (NEGATIVE); NITRITE,URINE NEGATIVE (NEGATIVE); PROTEIN,URINE DIPSTICK 2+ (NEGATIVE)
[2018-03-28 17:58] LABS: BILIRUBIN,URINE NEGATIVE (NEGATIVE); KETONES,URINE NEGATIVE (NEGATIVE); URINE UROBILINOGEN 0.2 mg/dL (0.2 - 1)
[2018-03-28 17:59] LABS: BACTERIA,URINE RARE /HPF; EPITHELIAL CELLS,URINE RARE /LPF; RBC,URINE 0-5 /HPF (0-5); YEAST,URINE FEW
[2018-03-28] MEDS ORDERED: ONDANSETRON HCL INJ 2 MG/ML VIAL IV PRN (18:00)
[2018-03-28] MEDS ORDERED: MORPHINE SULFATE INJ 4 MG/ML INJ IV PRN (18:00)
[2018-03-28] MEDS ORDERED: DEXTROSE 50% SYRINGE 50 ML IV PRN (18:00)
[2018-03-28] MEDS ORDERED: MORPHINE SULFATE 2 MG/ML SYR IV PRN (18:00)
--- OUTSIDE RECORDS SUMMARY | 2018-03-28 18:06 | XMS REPORT | Clinical Summary ---
Author Author JAYASHREE [facility] Organization [facility] Address Unknown Phone Unavailable Care Team Providers Care Air Export Operations Agent Name Role Phone Shahab Chino MD PCP [...] RCA stent and 30-40% distal RCA lesion. [facility] 06/2014 at [facility]. Cath film reviewed by his internal medicine hospitalist, Dr. Moeller, and she reported the following findings: LM 60% stenosis, RI 90%, LCx occluded, RCA distal 70%. Diabetes 02/01/2013 Mixed hyperlipidemia 02/01/2013 Benign essential hypertension 02/01/2013 Morbid obesity 02/01/2013 S/P coronary artery stent placement - RCA stent - [id number] 02/01/2013 Encounters Care Team Description Date Type [...] Area Manufactur er 05/15/2019 08.501.001.20S / / [id number] Sternal Zipfix,With Needle Sterile Cardiovasc N/A: Sternum SYNTHES Pack Of 20 - [id number] [employer] Implanted: Qty: 1 on 07/18/2014 by Bertram Virk MD 05/15/2019 [id number] / / [id number] Sternal Zipfix,With Needle Sterile Cardiovasc N/A: Sternum SYNTHES Pack Of 20 - [id number] [employer] Implanted: Qty: 1 on 07/18/2014 by Bertram Virk MD Procedures Comments Procedure Name Priority Date/Time Associated Diagnosis CT LIMITED/LOCALIZED Routine 08/25/2017 FOLLOW-UP 1:32 PM CDT PLATELET COUNT STAT 08/25/2017 Lung nodule 11:02 AM CDT PT/APTT STAT 08/25/2017 Lung nodule 11:02 AM CDT after 03/27/2017 Results * CT LIMITED/LOCALIZED FOLLOW-UP (08/25/2017 1:32 PM CDT) Narrative Performed At FINAL REPORT [facility] CT minimal. MEDICAL HISTORY: Lung nodule for [...] MD Report Verified Date/Time:08/25/2017 13:48:03 Reading Location: [address] Body Reading Room Procedure Note [...] Report Verified Date/Time: 08/25/2017 13:48:03 Reading Location: [facility] C013Y CT Body Reading Room Performing Organization Address City/[facility] Phone Number GE RIS * PT/aPTT (08/25/2017 11:02 AM CDT) Protime 14.1 11.7 - 14.7 seconds [facility] INR 1.1 <=5.9 [facility] PTT 36.0 22.5 - 36.0 seconds [facility] Specimen Blood Narrative Performed At RECOMMENDED COUMADIN/WARFARIN INR THERAPY RANGES [facility] STANDARD DOSE: 2.0 - 3.0 Includes: PROPHYLAXIS for venous thrombosis, [facility] systemic embolization; TREATMENT for venous thrombosis and/or pulmonary embolus. HIGH RISK: Target INR is 2.5-3.5 for patients with mechanical heart valves. Performing Organization Address City/[facility] Hospitalcode Phone Number [facility] [address] [place] [address] [facility] * Platelet count (08/25/2017 11:02 AM CDT) Platelets 182 150 - 450 K/CU MM [facility] Specimen Blood Performing Organization Address [facility] Hospitalcode Phone Number [facility] [address] [place] [address] [facility] after 03/27/2017 Insurance Payer Benefit Subscriber ID Type Phone Address Plan / Group [employer] xxxxxxxxx Maps O ALL Contracted [place] Directives For more information, please contact: [facility] [address] [place] [address] Date Inactivated Comments Code Status [...]
[2018-03-28] MEDS: SODIUM CHLORIDE 0.9% 1000ML 1,000 ML IV SCH (18:25)
[2018-03-28] MEDS ORDERED: WARFARIN SOD 2.5 MG TAB PO SCH ×2 (20:15)
[2018-03-28] MEDS ORDERED: INSULIN DETEMIR 100 UNIT/ML PEN SQ SCH (21:00)
[2018-03-28] MEDS ORDERED: ATORVASTATIN 20 MG TAB PO SCH (21:00)
[2018-03-28] MEDS: ATORVASTATIN 40 MG TAB PO SCH (21:43)
[2018-03-28] MEDS ORDERED: WARFARIN SOD 5 MG TAB PO SCH (22:00)
[2018-03-28] MEDS: TERAZOSIN HCL 5 MG CAP PO SCH (22:11)
[2018-03-28] MEDS: GABAPENTIN 300 MG CAP PO SCH (22:11)
[2018-03-28] MEDS: METOPROLOL TARTRATE 25 MG TAB PO SCH (22:12)
[2018-03-28] MEDS: INSULIN REGULAR, HUMAN 100 UNIT/1 ML 3ML VIAL SQ SCH (22:55)
[2018-03-29] VITALS (9 sets, daily range): BP systolic 127–164; BP diastolic 58–70
[2018-03-29] MEDS: CLINDAMYCIN 300MG 50 ML IV SCH ×5 (00:17→20:45)
[2018-03-29] MEDS: SODIUM CHLORIDE 0.9% 1000ML 1,000 ML IV SCH ×2 (07:08→10:50)
[2018-03-29] MEDS: INSULIN REGULAR, HUMAN 100 UNIT/1 ML 3ML VIAL SQ SCH ×4 (07:30→21:00)
[2018-03-29] MEDS: PANTOPRAZOLE SOD 40 MG TABEC PO SCH (08:55)
[2018-03-29] MEDS: ASPIRIN 81 MG CHEW TAB PO SCH (08:55)
[2018-03-29] MEDS: GABAPENTIN 300 MG CAP PO SCH ×2 (08:55→16:51)
[2018-03-29] MEDS: METOPROLOL TARTRATE 25 MG TAB PO SCH ×2 (08:55→16:51)
[2018-03-29] MEDS: FUROSEMIDE 40 MG TAB PO SCH (08:55)
[2018-03-29] MEDS ORDERED: GABAPENTIN 300 MG CAP PO SCH (09:00)
[2018-03-29] MEDS ORDERED: GABAPENTIN 400 MG CAP PO SCH (09:00)
[2018-03-29] MEDS ORDERED: METOPROLOL TARTRATE 25 MG TAB PO SCH (09:00)
[2018-03-29] MEDS ORDERED: INSULIN DETEMIR 100 UNIT/ML PEN SQ ONE (13:30)
[2018-03-29] MEDS: INSULIN LISPRO 100 UNIT/1 ML 3ML VIAL SQ SCH (16:49)
[2018-03-29] MEDS: LACTOBACILLUS ACIDOPHILUS CAPSULE PO SCH (16:51)
[2018-03-29] MEDS ORDERED: WARFARIN SOD 5 MG TAB PO SCH (17:00)
--- NOTE | 2018-03-29 18:15 | Diagnostic Imaging Report ---
ANKLE 3+ VIEWS LEFT, LOWER LEG LEFT - 3 views HISTORY: Left leg swelling/cellulitis. COMPARISON: None available. FINDINGS: Bones: No acute displaced fracture. Osseous alignment is within normal limits. Joints: Mild degenerative changes of the tibiotalar joint. Degenerative changes of the knee. Soft tissues: Mild bimalleolar soft tissue swelling. Phleboliths. Vascular calcifications. Surgical clips in the posterior inferior knee medially. IMPRESSION: No acute osseous abnormality. Signed by: Dr. Selene Castano M.D. on 03/29/2018 6:12 PM
[2018-03-29] MEDS: TERAZOSIN HCL 5 MG CAP PO SCH (21:50)
[2018-03-29] MEDS: ATORVASTATIN 40 MG TAB PO SCH (21:50)
[2018-03-29] MEDS: PIPER-TAZ 3.375 GM 50 ML IV SCH (22:30)
[2018-03-30] VITALS (9 sets, daily range): BP systolic 117–141; BP diastolic 51–79
[2018-03-30 05:00] LABS: BASOPHILS % 0.5 % (0.0-1.0); EOSINOPHILS # (AUTO) 0.6 (0.0-0.4); EOSINOPHILS % 6.9 % (0.0-6.0); HEMATOCRIT 36.4 % (38.2-49.6); LYMPHOCYTES # (AUTO) 1.6 (1.0-3.2); LYMPHOCYTES % 19.6 % (18.0-39.1); MEAN CORPUSCULAR HEMOGLOBIN 29.6 pg (28-32); MEAN CORPUSCULAR VOLUME 89.7 fL (81-99); MONOCYTES # (AUTO) 0.9 (0.2-0.8); NEUTROPHILS # (AUTO) 4.9 (2.1-6.9); NEUTROPHILS % 61.7 % (38.7-80.0); PLATELET COUNT 148 x10e3/uL (140-360); RED BLOOD COUNT 4.06 x10e6/uL (4.3-5.7); RED CELL DISTRIBUTION WIDTH 14.8 % (11.7-14.4)
[2018-03-30 05:17] LABS: INR 2.51; PROTHROMBIN TIME 28.9 seconds (11.9-14.5)
[2018-03-30 05:28] LABS: ANION GAP 14.8 mmol/L (8-16); CALCIUM 8.4 mg/dL (8.4-10.2); CREATININE, SERUM 1.79 mg/dL (0.72-1.25); POTASSIUM 3.8 mmol/L (3.5-5.1)
[2018-03-30] MEDS: CLINDAMYCIN 300MG 50 ML IV SCH ×6 (06:20→23:46)
[2018-03-30] MEDS: INSULIN LISPRO 100 UNIT/1 ML 3ML VIAL SQ SCH ×6 (07:30→20:23)
[2018-03-30] MEDS: INSULIN REGULAR, HUMAN 100 UNIT/1 ML 3ML VIAL SQ SCH (07:30)
[2018-03-30] MEDS: METOPROLOL TARTRATE 25 MG TAB PO SCH ×2 (09:00→17:00)
[2018-03-30] MEDS: INSULIN DETEMIR 100 UNIT/ML PEN SQ SCH (09:00)
[2018-03-30] MEDS: PANTOPRAZOLE SOD 40 MG TABEC PO SCH (09:00)
[2018-03-30] MEDS: LACTOBACILLUS ACIDOPHILUS CAPSULE PO SCH ×2 (09:00→17:00)
[2018-03-30] MEDS: ASPIRIN 81 MG CHEW TAB PO SCH (09:00)
[2018-03-30] MEDS: FUROSEMIDE 40 MG TAB PO SCH (09:00)
[2018-03-30] MEDS: PIPER-TAZ 3.375 GM 50 ML IV SCH (09:00)
[2018-03-30] MEDS: GABAPENTIN 300 MG CAP PO SCH ×2 (09:00→17:00)
[2018-03-30] MEDS ORDERED: WARFARIN SOD 5 MG TAB PO SCH (17:00)
--- NOTE | 2018-03-30 20:06 | Consultation ---
DATE OF CONSULTATION: March 30, 2018 CARDIAC CONSULTATION REASON FOR CONSULTATION: Severe cellulitis, venous insufficiency, arterial insufficiency, and lymphedema of the lower extremities, congestive heart failure, coronary artery disease, chronic kidney disease, and multiple medical health problems. HISTORY: This is a pleasant 78-year-old gentleman, who is known with multiple medical health problems. In fact, patient had multiple admissions to this institution. Most recent one was in February 22, 2018 when he had fevers, chills, and respiratory failure. He had altered mental status. He was on BiPAP. Subsequently, he was given diuresis and he was given treatments. His failure was definitely pulmonary based on ABGs of 7.26, pCO2 of 70, pO2 of 280 last admission. He was treated and he was dismissed home. Patient had several admissions and cellulitis of the lower extremities. He is followed at [facility]. He came this time because of redness and swelling and cellulitis of the left lower extremity. An arterial Doppler was done, which showed the presence of severe peripheral arterial disease of the lower extremity. Cardiac consultation was obtained. I visited with the patient, who does have shortness of breath on minimal exertion, easy fatigability, chronic swelling of the lower extremity since "his bypass surgery". His activities are limited. He moves slowly because of his shortness of breath. He does have orthopnea, sleep apnea. He had several admissions with respiratory distress. Regarding his angina, there is no active angina at this time. However, he is having shortness of breath on exertion. This could well be also angina equivalent. There is no pleuritic chest pain such as pulmonary embolism. He does have repeat cellulitis and lymphedema of the lower extremities. On admission, he was febrile. His renal function showed creatinine 1.99. He is known to have chronic renal insufficiency. REVIEW OF SYSTEMS: Extensive to all systems. Will be summarized for clarity. GENERAL: Fever, chills, failure to thrive. HEENT: No hearing, no vision problem. PULMONARY: Repeated admission with respiratory failure, chronic lung disease although he never smoked. He does have history of probably paralyzed left hemidiaphragm. CARDIAC: He had coronary artery bypass surgery by Dr. Bertram Virk for 4 vessels. He does have shortness of breath, orthopnea, sleep apnea. No paroxysmal nocturnal dyspnea. GI: Bloating, indigestion. No hematemesis, no melena. : He is known to have chronic insufficiency, still makes good urine. He does have frequency of his urination. NEUROMUSCULAR: Aches and pains. LOWER EXTREMITIES: Chronic swelling and edema and repeated cellulitis. NEUROLOGICAL: Low back pain, peripheral neuropathy. No CVA, no localized weakness. HOME MEDICATIONS: A very long list including 1. Warfarin 7.5 mg 3 days per week, 5 mg 4 days a week. 2. Atorvastatin 80 mg a day. 3. Insulin 60 units nightly and sliding scale. 4. Gabapentin 1200 mg twice a day. 5. Terazosin 10 mg nightly. 6. Protonix 40 mg a day. 7. Metoprolol tartrate 25 mg twice a day. ALLERGIES: SITAGLIPTIN, EXENATIDE, VANCOMYCIN, AND QUINAPRIL. PAST MEDICAL HISTORY 1. Coronary artery disease, post 4-vessel artery bypass surgery [address] Virk. 2. Diabetes mellitus with severe end-organ damage. 3. Severe peripheral neuropathy. 4. Chronic renal insufficiency, stage 3-4. 5. 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 6. Chronic lymphedema in the legs. 7. Repeated admission with new respiratory failure. 8. 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 9. Repeated cellulitis of the lower extremities. 10. Cholecystectomy. SOCIAL HISTORY: He is a nonsmoker. He is [id number]. 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 FAMILY HISTORY: Father and mother of heart disease, father at the age 71, mother at the age 79. One brother younger age at the age 67 is also having some heart problem. Sister at age 83 she already has heart failure and pacemaker. Three healthy children, 2 sons and 1 daughter. PHYSICAL EXAM VITALS: Height of 5'11, weight of 187, blood pressure 140/60, heart rate of 70, respiratory rate of 18, temperature of 96 Fahrenheit. HEENT: Pupils are reactive. NECK: No elevation of jugular venous pulsation. CHEST: Decreased air entry in both lungs. HEART: PMI 5th intercostal space on 1st and 2nd heart sounds. ABDOMEN: Soft with good bowel sounds. EXTREMITIES: Chronic lymphedema, chronic changes, chronic venous and lymphedema changes bilaterally. There is severe cellulitis of the left foreleg. NEUROLOGIC: Able to move extremities. Gait is not examined. Symptoms of severe peripheral neuropathy. Marked edema is noted. LAB DATA: Admission creatinine of 1.99, BUN of 35. White blood cell count of 14,000, hemoglobin is 12, hematocrit 36%. INR of 2.5. Urinalysis positive for glucose and protein. Chest x-ray showed elevated left hemidiaphragm and changes. EKG: Not available. IMPRESSIONS AND PLAN 1. Admission with cellulitis of the left lower extremity. 2. Chronic lymphedema. 3. Evidence of severe peripheral arterial vascular disease with no pulses below the femoral level. Furthermore, arterial Doppler of the left lower extremities confirmed severe disease starting from the midsuperficial femoral artery level. 4. Chronic lymphedema. 5. Diabetes mellitus with end-organ damage. 6. Severe peripheral neuropathy. 7. Chronic renal insufficiency. 8. Coronary artery disease, post coronary artery bypass surgery. 9. Obesity. 10. History of repeated respiratory failure. 11. Patient on warfarin since his bypass surgery, questionable details. He denied knowing to have atrial fibrillation. Cardiac-swan my recommendation will be as follows: Continuation of antibiotics as started. Holding warfarin until we evaluate him further and make a decision regarding his lower extremities. His lower extremity problem are combination of venous insufficiency, lymphedema, and definitely, patient also has peripheral arterial vascular disease. This is a chronic problem. This needs to have multidisciplinary approach. Will discuss option with the patient. Will follow patient treatment. Meanwhile, will continue antibiotics. This all discussed and explained to the patient. His questions are answered. Job#: [id number] CQ
[2018-03-30] MEDS: TERAZOSIN HCL 5 MG CAP PO SCH (20:22)
[2018-03-30] MEDS: ATORVASTATIN 40 MG TAB PO SCH (20:22)
[2018-03-31] VITALS (9 sets, daily range): BP systolic 129–155; BP diastolic 47–79
[2018-03-31 05:24] LABS: BASOPHILS % 0.5 % (0.0-1.0); EOSINOPHILS # (AUTO) 0.5 (0.0-0.4); HEMATOCRIT 38.1 % (38.2-49.6); HEMOGLOBIN 11.9 g/dL (14.0-18.0); LYMPHOCYTES # (AUTO) 1.4 (1.0-3.2); LYMPHOCYTES % 23.9 % (18.0-39.1); MEAN CORPUSCULAR HGB CONC 31.2 g/dL (31-35); MEAN CORPUSCULAR VOLUME 92.7 fL (81-99); MONOCYTES # (AUTO) 0.6 (0.2-0.8); MONOCYTES % 9.6 % (4.4-11.3); NEUTROPHILS # (AUTO) 3.5 (2.1-6.9); NEUTROPHILS % 57.7 % (38.7-80.0); PLATELET COUNT 134 x10e3/uL (140-360); RED BLOOD COUNT 4.11 x10e6/uL (4.3-5.7); RED CELL DISTRIBUTION WIDTH 14.9 % (11.7-14.4)
[2018-03-31 05:41] LABS: INR 2.57; PROTHROMBIN TIME 29.5 seconds (11.9-14.5)
[2018-03-31 05:52] LABS: ALBUMIN 2.8 g/dL (3.5-5.0); ALBUMIN/GLOBULIN RATIO 0.8 (0.8-2.0); ANION GAP 15.1 mmol/L (8-16); CALCIUM 8.4 mg/dL (8.4-10.2); CHOL/HDL RATIO 4.3 (3.9-4.7); CREATININE, SERUM 1.66 mg/dL (0.72-1.25); POTASSIUM 4.1 mmol/L (3.5-5.1)
[2018-03-31 06:15] LABS: THYROID STIMULATING HORMONE 2.795 uIU/mL (0.350-4.940)
[2018-03-31] MEDS: CLINDAMYCIN 300MG 50 ML IV SCH ×3 (06:19→17:39)
[2018-03-31] MEDS: INSULIN LISPRO 100 UNIT/1 ML 3ML VIAL SQ SCH ×7 (07:30→21:00)
[2018-03-31] MEDS: PANTOPRAZOLE SOD 40 MG TABEC PO SCH (09:00)
[2018-03-31] MEDS: LACTOBACILLUS ACIDOPHILUS CAPSULE PO SCH ×2 (09:00→17:00)
[2018-03-31] MEDS: INSULIN DETEMIR 100 UNIT/ML PEN SQ SCH (09:00)
[2018-03-31] MEDS: ASPIRIN 81 MG CHEW TAB PO SCH (09:00)
[2018-03-31] MEDS: FUROSEMIDE 40 MG TAB PO SCH (09:00)
[2018-03-31] MEDS: GABAPENTIN 300 MG CAP PO SCH ×2 (09:00→17:00)
[2018-03-31] MEDS: METOPROLOL TARTRATE 25 MG TAB PO SCH ×2 (09:00→17:00)
[2018-03-31] MEDS: TERAZOSIN HCL 5 MG CAP PO SCH (21:00)
[2018-03-31] MEDS: ATORVASTATIN 40 MG TAB PO SCH (21:00)
[2018-04-01 05:05] VITALS: BP 117/47
[2018-04-01 05:14] LABS: BASOPHILS % 0.5 % (0.0-1.0); EOSINOPHILS # (AUTO) 0.5 (0.0-0.4); EOSINOPHILS % 7.6 % (0.0-6.0); HEMATOCRIT 36.7 % (38.2-49.6); HEMOGLOBIN 11.9 g/dL (14.0-18.0); LYMPHOCYTES # (AUTO) 1.6 (1.0-3.2); LYMPHOCYTES % 24.8 % (18.0-39.1); MEAN CORPUSCULAR HEMOGLOBIN 29.4 pg (28-32); MEAN CORPUSCULAR HGB CONC 32.4 g/dL (31-35); MEAN CORPUSCULAR VOLUME 90.6 fL (81-99); MONOCYTES # (AUTO) 0.7 (0.2-0.8); MONOCYTES % 11.2 % (4.4-11.3); NEUTROPHILS # (AUTO) 3.6 (2.1-6.9); NEUTROPHILS % 55.6 % (38.7-80.0); PLATELET COUNT 151 x10e3/uL (140-360); RED BLOOD COUNT 4.05 x10e6/uL (4.3-5.7); RED CELL DISTRIBUTION WIDTH 14.7 % (11.7-14.4)
[2018-04-01 05:28] LABS: INR 2.49; PROTHROMBIN TIME 28.8 seconds (11.9-14.5)
[2018-04-01 05:34] LABS: ANION GAP 13.9 mmol/L (8-16); CALCIUM 8.1 mg/dL (8.4-10.2); CREATININE, SERUM 1.55 mg/dL (0.72-1.25); POTASSIUM 3.9 mmol/L (3.5-5.1)
[2018-04-01] MEDS: CLINDAMYCIN 300MG 50 ML IV SCH ×3 (06:22→12:13)
[2018-04-01 08:12] VITALS: BP 153/88
[2018-04-01] MEDS: PANTOPRAZOLE SOD 40 MG TABEC PO SCH (08:25)
[2018-04-01] MEDS: FUROSEMIDE 40 MG TAB PO SCH (08:25)
[2018-04-01] MEDS: LACTOBACILLUS ACIDOPHILUS CAPSULE PO SCH (08:25)
[2018-04-01] MEDS: ASPIRIN 81 MG CHEW TAB PO SCH (08:25)
[2018-04-01] MEDS: INSULIN LISPRO 100 UNIT/1 ML 3ML VIAL SQ SCH ×4 (08:25→12:13)
[2018-04-01] MEDS: GABAPENTIN 300 MG CAP PO SCH (08:25)
[2018-04-01] MEDS: METOPROLOL TARTRATE 25 MG TAB PO SCH (08:25)
[2018-04-01 08:30] VITALS: BP 153/88
[2018-04-01] MEDS ORDERED: INSULIN DETEMIR 100 UNIT/ML PEN SQ SCH (09:00)
[2018-04-01 11:51] VITALS: BP 126/67
--- NOTE | 2018-04-01 14:05 | Progress Note ---
DATE: I am covering for Dr. Loco today. The patient feels much better. The redness in his legs has improved and he is not febrile. He denies pain in the leg. He is very eager to go home. PHYSICAL EXAMINATION VITALS: The patient is afebrile. Vital signs are stable. HEENT: Shows no facial swelling or erythema. The nasal mucosa is normal. The oropharynx is normal. LYMPHATIC: Shows no submandibular, cervical or supraclavicular adenopathy. CARDIAC: Reveals a regular rate and rhythm with normal S1 and S2. LUNGS: Auscultation of the lungs reveals clear breath sounds bilaterally. There is no wheezing. ABDOMEN: Soft and nontender. There is no rebound or guarding. EXTREMITIES: Shows bilateral leg edema. There is no active cellulitis. IMPRESSION 1. Cellulitis of the left lower extremity. 2. Chronic lymphedema. 3. Peripheral vascular disease. 4. Chronic renal failure, stage 3. 5. Diabetes mellitus. PLAN 1. Patient will be discharged home. 2. Will continue his Zyvox which he has at home. 3. He will continue his warfarin. 4. He will continue his current diabetic regimen. 5. He will follow up with Doretha. Job#: [id number] JESSICA
== END 2018-04-01 14:39 | disposition home or self-care (01) | DRG 872 ==
LOC: ER 13:25 → ERHOLD 18:03 → MED/SURG2 03-29 02:38
PROVIDERS: ADMIT Internal Medicine; ATTEND Internal Medicine
DX: A41.9 Sepsis, unspecified organism (principal); J96.10 Chronic respiratory failure, unspecified whether with hypoxia or hypercapnia; Z68.41 Body mass index [BMI] 40.0-44.9, adult; L03.116 Cellulitis of left lower limb; L03.115 Cellulitis of right lower limb; E66.01 Morbid (severe) obesity due to excess calories; E11.22 Type 2 diabetes mellitus with diabetic chronic kidney disease; N18.3 Chronic kidney disease, stage 3 (moderate); I48.0 Paroxysmal atrial fibrillation; Z79.01 Long term (current) use of anticoagulants; I25.10 Atherosclerotic heart disease of native coronary artery without angina pectoris; E11.42 Type 2 diabetes mellitus with diabetic polyneuropathy; Z79.4 Long term (current) use of insulin; I87.2 Venous insufficiency (chronic) (peripheral); I89.0 Lymphedema, not elsewhere classified; E11.51 Type 2 diabetes mellitus with diabetic peripheral angiopathy without gangrene
CPT/HCPCS: 36415; 71045; 80048; 80053; 80061; 81001; 82948; 83605; 84443; 85025; 85610; 85730; 87040; 87086; 87186; 93005; 93926; 99284; J2543; J7030

== ENCOUNTER 2018-04-26 21:30 | Inpatient (IN) | payer OTHER ==
[~2018-04-26] VITALS: Ht 180.3 cm; Wt 132.0 kg
--- OUTSIDE RECORDS SUMMARY | 2018-04-26 21:34 | XMS REPORT | Clinical Summary ---
Author Author JAYASHREE [facility] Organization [facility] Address Unknown Phone Unavailable Care Team Providers Care Pinsetter Mechanic Automatic Name Role Phone Shahab Chino MD PCP [...] RCA stent and 30-40% distal RCA lesion. [facility] 06/2014 at [facility]. Cath film reviewed by his general repairer, Dr. Moeller, and she reported the following findings: LM 60% stenosis, RI 90%, LCx occluded, RCA distal 70%. Diabetes 02/01/2013 Mixed hyperlipidemia 02/01/2013 Benign essential hypertension 02/01/2013 Morbid obesity 02/01/2013 S/P coronary artery stent placement - RCA stent - [id number] 02/01/2013 Encounters Care Team Description Date Type Specialty John Paul Conklin MD Lung nodule 08/25/2017 Hospital Radiology Encounter Izaiah Irene MD Lung nodule (Primary Dx) 08/25/2017 Orders Only Lab John Paul Conklin MD Lung nodule (Primary Dx) 08/19/2017 Outside Orders Central Scheduling after 04/25/2017 Social History Date Tobacco Use Types Packs/Day [...] Area Manufactur er 05/15/2019 08.501.001.20S / / [id number] Sternal Zipfix,With Needle Sterile Cardiovasc N/A: Sternum SYNTHES Pack Of 20 - [id number] [employer] Implanted: Qty: 1 on 07/18/2014 by Bertram Virk MD 05/15/2019 08.501.001.20S / / [id number] Sternal Zipfix,With Needle Sterile Cardiovasc N/A: Sternum SYNTHES Pack Of 20 - [id number] [employer] Implanted: Qty: 1 on 07/18/2014 by Bertram Virk MD Procedures Comments Procedure Name Priority Date/Time Associated Diagnosis CT LIMITED/LOCALIZED Routine 08/25/2017 FOLLOW-UP 1:32 PM CDT PLATELET COUNT STAT 08/25/2017 Lung nodule 11:02 AM CDT PT/APTT STAT 08/25/2017 Lung nodule 11:02 AM CDT after 04/25/2017 Results * CT LIMITED/LOCALIZED FOLLOW-UP (08/25/2017 1:32 PM CDT) Narrative Performed At FINAL REPORT [facility] CT minimal. MEDICAL HISTORY: Lung nodule for [...] MD Report Verified Date/Time:08/25/2017 13:48:03 Reading Location: [address] Body Reading Room Procedure Note [...] Report Verified Date/Time: 08/25/2017 13:48:03 Reading Location: [facility] C013Y CT Body Reading Room Performing Organization Address City/[facility] Phone Number GE RIS * PT/aPTT (08/25/2017 11:02 AM CDT) Protime 14.1 11.7 - 14.7 seconds [facility] INR 1.1 <=5.9 [facility] PTT 36.0 22.5 - 36.0 seconds [facility] Specimen Blood Narrative Performed At RECOMMENDED COUMADIN/WARFARIN INR THERAPY RANGES [facility] STANDARD DOSE: 2.0 - 3.0 Includes: PROPHYLAXIS for venous thrombosis, [facility] systemic embolization; TREATMENT for venous thrombosis and/or pulmonary embolus. HIGH RISK: Target INR is 2.5-3.5 for patients with mechanical heart valves. Performing Organization Address City/[facility] Hospitalcode Phone Number [facility] [address] [place] [address] [facility] * Platelet count (08/25/2017 11:02 AM CDT) Platelets 182 150 - 450 K/CU MM [facility] Specimen Blood Performing Organization Address [facility] Hospitalcode Phone Number [facility] [address] [place] [address] [facility] after 04/25/2017 Insurance Payer Benefit Subscriber ID Type Phone Address Plan / Group [employer] xxxxxxxxx Maps O ALL Contracted [place] Directives For more information, please contact: [facility] [address] [place] [address] Date Inactivated Comments Code Status [...]
[2018-04-26] MEDS ORDERED: SODIUM CHLORIDE FLUSH 10 ML SYR INJ PRN (22:15)
--- NOTE | 2018-04-26 23:15 | Diagnostic Imaging Report ---
EXAMINATION: CHEST SINGLE (PORTABLE) INDICATION: Fever. COMPARISON: Chest x-ray 03/28/2018, chest CT 08/14/2016 FINDINGS: AP view TUBES and LINES: None. LUNGS/PLEURA: Stable appearance of the chest with persistent left basilar opacity. The left hemidiaphragm is elevated, as noted on chest CT 08/14/2016. Right lung is clear. No pneumothorax. HEART AND MEDIASTINUM: Stable, left heart border silhouetted. BONES AND SOFT TISSUES: No acute osseous lesion. Sternotomy wires. Soft tissues are unremarkable. UPPER ABDOMEN: No free air under the diaphragm. IMPRESSION: Stable exam from 03/28/2018 with left basilar opacity likely representing a combination of left hemidiaphragm elevation as seen on chest CT 08/14/2016 with associated atelectasis. Superimposed effusion/consolidation cannot be excluded. Signed by: DR. Memo Arrieta MD on 04/26/2018 11:11 PM
[2018-04-27] VITALS (8 sets, daily range): BP systolic 112–154; BP diastolic 51–72
[2018-04-27 00:27] LABS: BASOPHILS % 0.3 % (0.0-1.0); EOSINOPHILS # (AUTO) 0.2 (0.0-0.4); EOSINOPHILS % 1.5 % (0.0-6.0); HEMATOCRIT 38.8 % (38.2-49.6); HEMOGLOBIN 12.7 g/dL (14.0-18.0); LYMPHOCYTES # (AUTO) 1.2 (1.0-3.2); LYMPHOCYTES % 10.9 % (18.0-39.1); MEAN CORPUSCULAR HGB CONC 32.7 g/dL (31-35); MEAN CORPUSCULAR VOLUME 88.6 fL (81-99); MONOCYTES % 9.1 % (4.4-11.3); NEUTROPHILS # (AUTO) 8.8 (2.1-6.9); NEUTROPHILS % 77.8 % (38.7-80.0); PLATELET COUNT 177 x10e3/uL (140-360); RED BLOOD COUNT 4.38 x10e6/uL (4.3-5.7)
[2018-04-27 00:47] LABS: ALBUMIN 3.3 g/dL (3.5-5.0); ALBUMIN/GLOBULIN RATIO 0.9 (0.8-2.0); ANION GAP 16.6 mmol/L (8-16); CREATININE, SERUM 2.04 mg/dL (0.72-1.25); POTASSIUM 3.6 mmol/L (3.5-5.1)
[2018-04-27 00:48] LABS: BILIRUBIN,URINE NEGATIVE (NEGATIVE); CLARITY,URINE CLEAR (CLEAR); COLOR,URINE YELLOW (YELLOW); KETONES,URINE NEGATIVE (NEGATIVE); LEUKOCYTE ESTERASE ,URINE NEGATIVE (NEGATIVE); NITRITE,URINE NEGATIVE (NEGATIVE); PROTEIN,URINE DIPSTICK 1+ (NEGATIVE); URINE UROBILINOGEN 0.2 mg/dL (0.2 - 1)
[2018-04-27 01:00] LABS: BACTERIA,URINE MANY /HPF; EPITHELIAL CELLS,URINE FEW /LPF; WBC,URINE (MAN) 0-5 /HPF (0-5)
--- OUTSIDE RECORDS SUMMARY | 2018-04-27 02:30 | XMS REPORT | Clinical Summary ---
Author Author JAYASHREE [facility] Organization [facility] Address Unknown Phone Unavailable Care Team Providers Care Section Cutter Name Role Phone Shahab Chino MD PCP [...] RCA stent and 30-40% distal RCA lesion. [facility] 06/2014 at [facility]. Cath film reviewed by his purchasing buyer, Dr. Moeller, and she reported the following findings: LM 60% stenosis, RI 90%, LCx occluded, RCA distal 70%. Diabetes 02/01/2013 Mixed hyperlipidemia 02/01/2013 Benign essential hypertension 02/01/2013 Morbid obesity 02/01/2013 S/P coronary artery stent placement - RCA stent - [id number] 02/01/2013 Encounters Care Team Description Date Type Specialty John Paul Conklin MD Lung nodule 08/25/2017 Hospital Radiology Encounter Izaiah Irene MD Lung nodule (Primary Dx) 08/25/2017 Orders Only Lab John Paul Conklin MD Lung nodule (Primary Dx) 08/19/2017 Outside Orders Central Scheduling after 04/26/2017 Social History Date Tobacco Use Types Packs/Day [...] Area Manufactur er 05/15/2019 [id number] / / [id number] Sternal Zipfix,With Needle Sterile Cardiovasc N/A: Sternum SYNTHES Pack Of 20 - [id number] [employer] Implanted: Qty: 1 on 07/18/2014 by Bertram Virk MD 05/15/2019 [id number] / / [id number] Sternal Zipfix,With Needle Sterile Cardiovasc N/A: Sternum SYNTHES Pack Of 20 - [id number] [employer] Implanted: Qty: 1 on 07/18/2014 by Bertram Virk MD Procedures Comments Procedure Name Priority Date/Time Associated Diagnosis CT LIMITED/LOCALIZED Routine 08/25/2017 FOLLOW-UP 1:32 PM CDT PLATELET COUNT STAT 08/25/2017 Lung nodule 11:02 AM CDT PT/APTT STAT 08/25/2017 Lung nodule 11:02 AM CDT after 04/26/2017 Results * CT LIMITED/LOCALIZED FOLLOW-UP (08/25/2017 1:32 PM CDT) Narrative Performed At FINAL REPORT [facility] CT minimal. MEDICAL HISTORY: Lung nodule [...] MD Report Verified Date/Time:08/25/2017 13:48:03 Reading Location: [address] Body Reading Room Procedure Note [...] Report Verified Date/Time: 08/25/2017 13:48:03 Reading Location: [facility] C013Y CT Body Reading Room Performing Organization Address City/[facility] Phone Number GE RIS * PT/aPTT (08/25/2017 11:02 AM CDT) Protime 14.1 11.7 - 14.7 seconds [facility] INR 1.1 <=5.9 [facility] PTT 36.0 22.5 - 36.0 seconds [facility] Specimen Blood Narrative Performed At RECOMMENDED COUMADIN/WARFARIN INR THERAPY [facility] STANDARD DOSE: 2.0 - 3.0 Includes: PROPHYLAXIS for venous thrombosis, [facility] systemic embolization; TREATMENT for venous thrombosis and/or pulmonary embolus. HIGH RISK: Target INR is 2.5-3.5 for patients with mechanical heart valves. Performing Organization Address City/[facility] Phone Number [facility] [address] [place] [address] [facility] * Platelet count (08/25/2017 11:02 AM CDT) Platelets 182 150 - 450 K/CU MM [facility] Specimen Blood Performing Organization Address [facility] Phone Number [facility] [address] [place] [address] [facility] after 04/26/2017 Insurance Payer Benefit Subscriber ID Type Phone Address Plan / Group [employer] xxxxxxxxx Maps O ALL Contracted Advance Directives For more information, please contact: [facility] [address] [place] [address] Date Inactivated Comments Code Status [...]
[2018-04-27] MEDS ORDERED: PIPERACILLIN/TAZO 2.25 GM 50 ML IV SCH (06:00)
--- NOTE | 2018-04-27 07:23 | NUR ---
Patient arrived from ER via stretcher. Patient is awake, alertx3 and able to transfer self to bed. POC discussed. Pt oriented to new room, bed controls and call ortega. He was instructed to call for assistance and verbalized understanding.
[2018-04-27] MEDS ORDERED: CYMBALTA20 MG PO (07:45)
[2018-04-27 08:11] LABS: BASOPHILS % 0.4 % (0.0-1.0); EOSINOPHILS # (AUTO) 0.3 (0.0-0.4); EOSINOPHILS % 2.6 % (0.0-6.0); HEMATOCRIT 39.8 % (38.2-49.6); LYMPHOCYTES # (AUTO) 1.5 (1.0-3.2); LYMPHOCYTES % 13.5 % (18.0-39.1); MEAN CORPUSCULAR HEMOGLOBIN 29.3 pg (28-32); MEAN CORPUSCULAR HGB CONC 32.7 g/dL (31-35); MEAN CORPUSCULAR VOLUME 89.8 fL (81-99); MONOCYTES % 9.6 % (4.4-11.3); NEUTROPHILS % 73.6 % (38.7-80.0); PLATELET COUNT 169 x10e3/uL (140-360); RED BLOOD COUNT 4.43 x10e6/uL (4.3-5.7); RED CELL DISTRIBUTION WIDTH 14.9 % (11.7-14.4)
--- NOTE | 2018-04-27 09:45 | NUR ---
called to restart home medications per patient request. Per home medication will not be restarted until he rounds on patient . Patient made aware.
[2018-04-27] MEDS: SODIUM CHLORIDE 0.9% 1000ML 1,000 ML IV SCH ×2 (10:09→14:16)
[2018-04-27] MEDS: PIPERACILLIN/TAZO 2.25 GM 50 ML IV SCH ×2 (10:18→18:18)
--- NOTE | 2018-04-27 11:27 | NUR ---
SOCIAL WORK INITIAL ASSESSMENT Sole Rounding Machine Operator to bedside to discuss plan of care with patient/family. CM/SW role and care transitions discussed. Anticipated discharge plan discussed along with duration of care. CM/SW discussed patients right to make decisions in care. CM/SW work hours given. Patient lives: [address] WITH Admit/Transfer: VIA HOME POA/Emergency contact: IS SAURABH RADER [phone] Current/Previous Home Health: NONE PCP/Follow-up Care: MARINO DIAZ Current/Previous DME: HAS CPAP AND WALKER AT HOME Other Services: NONE Employment Status: NONE Areas of Concerns: NONE Referral Needs: NONE Education Needs: NONE IMM/VILLAVICENCIO given and signed (if applicable): VILLAVICENCIO Goal for discharge: RETURN HOME INDEPENDENTLY CM/SW left business card at the bedside with contact information. Name and number was also written on the patients whiteboard. Patient verbalized understanding of discussion. CM will follow-up with ongoing discharge and transition of care needs.
[2018-04-27] MEDS ORDERED: ACETAMINOPHEN 325 MG TAB PO PRN (11:45)
--- NOTE | 2018-04-27 14:21 | NUR ---
12units Humalog Sq x1 given per SSI insulin as ordered by for blood sugar of 322
[2018-04-27] MEDS ORDERED: DEXTROSE 50% SYRINGE 50 ML IV PRN (14:30)
[2018-04-27] MEDS: INSULIN LISPRO 100 UNIT/1 ML 3ML VIAL SQ SCH ×3 (16:30→21:00)
[2018-04-27] MEDS ORDERED: WARFARIN SOD 2.5 MG TAB PO SCH ×3 (17:00)
[2018-04-27] MEDS ORDERED: HYDROCODONE/APAP 7.5MG-325MG 1 EA TAB PO PRN (17:00)
--- NOTE | 2018-04-27 17:21 | History and Physical ---
CHIEF COMPLAINT: Dehydration, fever, generalized weakness and lower extremity swelling with redness, worse on the right compared to the left leg. An 78-year-old male with diabetes, on insulin therapy, diabetic neuropathy. The patient has chronic lower extremity poor foot care. He has a very dry right foot, flaky on the plantar surface with cracking along the toe area on the bottom. Basically, worsening condition and also developed some streaky redness on the lower extremity, worse on the right with red streak up to knee area. The patient complains of some pain. He stated that he had this problem before with infection. He does have some dehydration with baseline chronic kidney disease due to his diabetes. The patient is otherwise stable at this time. 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 He also last saw his family physician some time ago as well. Baseline, he is on anticoagulant therapy. PAST MEDICAL HISTORY: Including diabetes, type 2, on insulin therapy, diabetes with chronic kidney disease and diabetic neuropathy, dyslipidemia, depression, anxiety disorder, bilateral lower extremity athlete foot with dry skin and recurrent infection of the lower extremity, enlarged prostate, anticoagulant therapy for atrial fibrillation, obstructive sleep apnea, using BiPAP at home, coronary disease with previous coronary artery bypass graft surgery, 4-vessel. That was done in 2017. Left lung diaphragmatic paralysis, bilateral lower extremity lymphedema, cholecystectomy. SOCIAL HISTORY: Patient does not smoke or use alcohol. No recreational drugs. ALLERGIES: VANCOMYCIN, QUINAPRIL, STARLIX, . PHYSICAL EXAMINATION VITAL SIGNS: Temperature is 98, blood pressure 154/71, pulse rate is 80, respirations 18. GENERAL: The patient is not in acute distress. He is awake. HEENT: Normocephalic, atraumatic and anicteric. NECK: Supple grossly. PULMONARY: Diminished breath sounds bilaterally without any wheezing or rales. CARDIOVASCULAR: S1 and S2. Irregularly irregular. Rate controlled. ABDOMEN: Soft and obese. EXTREMITIES: One to 2+ edema. Bilateral extremities with red streak consistent with infection. Bilateral foot dry skin with cracked skin in the toe area. NEUROLOGIC: Diabetic neuropathy. Moving all extremities without any gross focal deficit. LABORATORY: Sodium is 136, potassium 3.6, chloride is 92, bicarb 31, BUN 39, creatinine 2, glucose 285. WBC is 10.8, hemoglobin 13, hematocrit 39.8, platelets is 169,000. Chest x-ray with left hemidiaphragm paralysis as previous. IMPRESSION 1. Bilateral lower extremity cellulitis, worse on the of right lower extremity compared to the left. 2. Bilateral foot with diabetic foot dry ulcer. Dry skin. 3. Xkoly-ip-qnarzin kidney insufficiency. 4. Uncontrolled diabetes with elevation of blood sugar. 5. Multiple chronic baseline problems. PLAN: IV antibiotics. Consultation with wound care, Dr. Freeman. Consultation with Dr. Curry for the lower extremity cellulitis. Consultation with Dr. Wells for the obstructive sleep apnea. The patient is otherwise stable at this time. Admit the patient. Resume home medications. Will monitor the patient closely. Job#: [id number] JESSICA
[2018-04-27] MEDS: GABAPENTIN 300 MG CAP PO SCH (18:18)
[2018-04-27] MEDS: METOPROLOL TARTRATE 25 MG TAB PO SCH (18:18)
--- NOTE | 2018-04-27 18:30 | NUR ---
Dr. Wells at bedside making rounds.
[2018-04-27 18:49] LABS: INR 2.03; PROTHROMBIN TIME 24.5 seconds (11.9-14.5)
--- NOTE | 2018-04-27 19:10 | NUR ---
Received pt in bed watching tv. No s/s of resp distress. Denies pain at this time. Has scaly skin to ble feet bottom side, no bleeding. Has order for Lotorimin top cream due. Has redness to BLE. Call light within reach and instructed to call for assistance. Bed alarm refused.
[2018-04-27] MEDS: WARFARIN SOD 2.5 MG TAB PO SCH (19:56)
[2018-04-27] MEDS: ATORVASTATIN 20 MG TAB PO SCH (19:57)
[2018-04-27] MEDS: TERAZOSIN HCL 5 MG CAP PO SCH (19:57)
[2018-04-27] MEDS: CLOTRIMAZOLE 1% CR 15 GM TOP SCH (19:57)
--- NOTE | 2018-04-27 20:51 | Diagnostic Imaging Report ---
EXAM: CT Chest WITHOUT contrast INDICATION: ^SOB ^[id number] ^[id number] COMPARISON: Chest x-ray dated 04/26/2018 TECHNIQUE: Chest was scanned utilizing a multidetector helical scanner from the lung apex through the level of the adrenal glands without administration of IV contrast. Absence of intravenous contrast decreases sensitivity for detection of lymphadenopathy and vascular pathology. Coronal and sagittal reformations were obtained. Routine protocol was performed. IV CONTRAST: None COMPLICATIONS: None RADIATION DOSE: Total DLP: 713.52 mGy*cm Estimated effective dose: (DLP x 0.014 x size factor) mSv CTDIvol has been reviewed. It is below the limits set by the Radiation Protocol Committee (RPC). FINDINGS: LINES/ TUBES: None. LUNGS AND AIRWAYS: Markedly elevated left hemidiaphragm. With adjacent mild consolidation, likely atelectasis. Mild focal left upper lobe hazy opacification (series 3, image 18]. Airways are normal. PLEURA: The pleural spaces are clear. HEART AND MEDIASTINUM: The thyroid gland is normal. No mediastinal, hilar or axillary lymphadenopathy. The heart is normal in size.. There is no pericardial effusion. Severe atherosclerotic calcification of aorta and coronary arteries. Evidence of CABG surgery. Main pulmonary artery measures 4 cm, suggestive of pulmonary hypertension. Ectatic ascending thoracic aorta measuring 4.3 cm. UPPER ABDOMEN: Cholecystectomy. BONES: Degenerative changes of thoracic spine. Median sternotomy wires. SOFT TISSUES: Unremarkable. IMPRESSION: Small focal left upper lobe hazy opacification, concerning for developing pneumonia. Elevated left hemidiaphragm with adjacent consolidation, likely atelectasis. No pleural effusion. Signed by: Dr. Tad Murillo MD on 04/27/2018 8:48 PM
[2018-04-27] MEDS: INSULIN DETEMIR 100 UNIT/ML PEN SQ SCH (21:00)
--- NOTE | 2018-04-27 21:44 | Consultation ---
DATE OF CONSULTATION: April 27, 2018 PULMONARY CONSULTATION HISTORY OF PRESENT ILLNESS: He is admitted to . He is followed at [facility]. He is 78 years old. Admitted with fever, edema and recurrent cellulitis. Insulin dependent. He says the cellulitis began with cracks in his feet. Feels he was dehydrated. ALLERGIES: TO VANCOMYCIN, QUINAPRIL, SITAGLIPTIN, AND EXENATIDE. CURRENT MEDICATIONS: Home medications include Lasix, insulin, ketoconazole, mirtazapine, Tessalon Perles, insulin, phenyl aspirin, Lipitor, Cymbalta, gabapentin, metoprolol, Protonix, terazosin, warfarin. PAST HISTORY: Gallbladder surgery. SOCIAL HISTORY: Nonsmoker, no alcohol. 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 Born in [place], [place]. REVIEW OF SYSTEMS: Chronically elevated diaphragm related to viral illness 35 years ago, presumably Herpes zoster. FAMILY HISTORY: Positive for coronary artery disease. PHYSICAL EXAMINATION GENERAL: Moderately obese white male, in no acute distress, looking stated age. VITAL SIGNS: Temperature 97.7, pulse 63, blood pressure 126/63. HEAD: Normocephalic, atraumatic. Eyes--extraocular movements intact. LUNGS: Diminished breath sounds, right chest. HEART: Regular rhythm. ABDOMEN: Nontender. EXTREMITIES: There is cellulitis and chronic edema. IMPRESSION 1. Sleep apnea. 2. Renal failure. PLAN: Optimize nasal CPAP. Consider antifungal topical therapy and to improve his skin. Resumed antibiotic for cellulitis. Thank you for this kind referral. Job#: [id number]
[2018-04-28] MEDS: PIPERACILLIN/TAZO 2.25 GM 50 ML IV SCH ×3 (01:44→17:16)
[2018-04-28 04:39] VITALS: BP 138/65
[2018-04-28 05:51] LABS: BASOPHILS % 0.5 % (0.0-1.0); EOSINOPHILS # (AUTO) 0.5 (0.0-0.4); EOSINOPHILS % 5.6 % (0.0-6.0); HEMATOCRIT 38.6 % (38.2-49.6); HEMOGLOBIN 12.5 g/dL (14.0-18.0); LYMPHOCYTES # (AUTO) 1.6 (1.0-3.2); LYMPHOCYTES % 18.1 % (18.0-39.1); MEAN CORPUSCULAR HEMOGLOBIN 29.3 pg (28-32); MEAN CORPUSCULAR HGB CONC 32.4 g/dL (31-35); MEAN CORPUSCULAR VOLUME 90.6 fL (81-99); MONOCYTES # (AUTO) 0.9 (0.2-0.8); MONOCYTES % 10.9 % (4.4-11.3); NEUTROPHILS # (AUTO) 5.6 (2.1-6.9); NEUTROPHILS % 64.6 % (38.7-80.0); PLATELET COUNT 166 x10e3/uL (140-360); RED BLOOD COUNT 4.26 x10e6/uL (4.3-5.7); RED CELL DISTRIBUTION WIDTH 14.8 % (11.7-14.4)
[2018-04-28 06:07] LABS: CALCIUM 8.7 mg/dL (8.4-10.2); CREATININE, SERUM 1.65 mg/dL (0.72-1.25); INR 1.94; PROTHROMBIN TIME 23.7 seconds (11.9-14.5)
[2018-04-28] MEDS: INSULIN LISPRO 100 UNIT/1 ML 3ML VIAL SQ SCH ×7 (07:30→21:00)
[2018-04-28 08:00] VITALS: BP 119/58
[2018-04-28] MEDS: DULOXETINE HCL 20 MG DELAYED RELEASE PO SCH (09:10)
[2018-04-28] MEDS: GABAPENTIN 300 MG CAP PO SCH ×2 (09:10→16:55)
[2018-04-28] MEDS: METOPROLOL TARTRATE 25 MG TAB PO SCH ×2 (09:10→16:55)
[2018-04-28] MEDS: DOXYCYCLINE HYCLATE TABLET 100 MG TAB PO SCH ×2 (09:10→16:55)
[2018-04-28] MEDS: PANTOPRAZOLE SOD 40 MG TABEC PO SCH (09:10)
[2018-04-28] MEDS: ASPIRIN 81 MG CHEW TAB PO SCH (09:10)
--- NOTE | 2018-04-28 09:44 | Consultation ---
DATE OF CONSULTATION: WOUND CONSULT Thank you, , for asking me to see this patient. HISTORY OF PRESENT ILLNESS: An 78-year-old male patient admitted with weakness, redness and pain to the right lower extremity. The patient had previous coronary bypass surgery vein graft from the right lower extremity. He has chronic right leg edema and also has chronic cracking of the skin to both feet. PAST MEDICAL HISTORY: Diabetes mellitus, coronary artery disease, chronic kidney disease, atrial fibrillation, on anticoagulation. SURGICAL HISTORY: Coronary artery bypass surgery, cholecystectomy. ALLERGIES: VANCOMYCIN, QUINAPRIL, STARLIX. PERSONAL HISTORY: Denies smoking or alcohol. PHYSICAL EXAMINATION VITALS: Blood pressure 138/65, pulse of 68, temperature 97.2, height 5 feet 11 inches, weight 290.7. HEENT: Normal. NECK: Normal. LUNGS: Bilaterally normal. ABDOMEN: Soft. LOWER EXTREMITIES: Right lower extremity with some redness, tight and slightly tender to touch. Palpable veins present. Suspect phlebitis. Right leg is slightly swollen than the left leg. Both feet have fissures, cracked skin with plantar keratosis consistent with anhydrotic eczema. ASSESSMENT: Right lower extremity phlebitis with plantar hyperkeratosis secondary to chronic anhydrotic eczema. PLAN: Apply triamcinolone 0.5% cream to both feet. IV antibiotics. The patient is currently on Zosyn. Venous Doppler to exclude DVT. Thank you, , for asking me to see this patient. I will follow with you. Job#: [id number] ME
[2018-04-28] MEDS: AMMONIUM LACTATE 12% LOTION 225GM BTL TOP SCH ×2 (09:50→17:13)
[2018-04-28] MEDS: CLOTRIMAZOLE 1% CR 15 GM TOP SCH ×2 (09:50→17:13)
--- NOTE | 2018-04-28 11:47 | Progress Note ---
DATE: April 28, 2018 MEDICINE PROGRESS NOTE SUBJECTIVE: Patient is doing better today with no complaints. Pulmonary is thinking that he may have underlying pneumonia for which he will be started on antibiotics. OBJECTIVE VITAL SIGNS: Temperature is 97.6, pulse 87, respiratory rate 14, blood pressure 119/58, pulse ox 96% on 2 L nasal cannula. LAB FINDINGS: White count 8.3, hemoglobin 12.5, hematocrit 39, platelets 166. Coagulation: PT 20, INR 1.9. Chemistry: Sodium 133, potassium 4, chloride 91, bicarb 33, anion gap 13, BUN 30, creatinine 1.65, glucose 292, calcium 8.7. MICROBIOLOGY: Blood culture is no growth. IMAGING STUDIES: Chest CT performed on 04/27/2018 shows small focal left upper lobe hazy opacity concerning for developing pneumonia. PHYSICAL EXAMINATION GENERAL: Not in acute distress. Alert and oriented times 3. Cooperative on examination. HEENT: Head is normocephalic and atraumatic. Eyes: Pupils equal, round and reactive to light bilaterally. Extraocular movements intact bilaterally. NECK: Supple. Good range of motion. Throat with no evidence of any erythema or exudates in the posterior pharynx. Has poor dentition. PULMONARY: Clear to auscultation bilaterally. No wheezing. No rales. No rhonchi. No crackles appreciated. CARDIOVASCULAR: Positive S1 and S2. No murmurs, rubs or gallops appreciated. ABDOMEN: Soft, nondistended and nontender to palpation. Bowel sounds present. MUSCULOSKELETAL: Strength is 5/5 throughout. No evidence of any musculoskeletal deficit on examination. No weakness appreciated. NEUROLOGICAL: Cranial nerves II through XII are grossly intact. No evidence of any neurological deficits on exam. SKIN: Intact. Warm to touch. Good cap refill. PSYCHIATRIC: Normal affect and mood. EXTREMITIES: No edema. Good range of motion throughout. IMPRESSION 1. Acute kidney injury on chronic kidney disease, stage 3. 2. Bilateral lower extremity cellulitis. 3. Community-acquired pneumonia. 4. Uncontrolled, type-2 diabetes. PLAN: At this time, continue with IV antibiotics. Wound care is following closely. Pulmonary is following as well for his underlying shortness of breath. In relation to the acute kidney injury, it is almost back to his normal baseline. We are going to get repeat labs in the morning. He is on IV antibiotics for possible underlying community-acquired pneumonia. Job#: [id number] MH
[2018-04-28 12:00] VITALS: BP 97/53
--- NOTE | 2018-04-28 15:03 | NUR ---
Report given to ANDREW Fernandes. Patient moved to room 201 with all belongings in stable condition.
--- NOTE | 2018-04-28 15:05 | NUR ---
PATIENT ARRIVED TO ROOM 201 AT THIS TIME. ORIENTED HIM TO ROOM AND POLICIES. HE IS SITTING UP IN RECLINER. CALL LIGHT WITHIN REACH.
[2018-04-28] MEDS ORDERED: SODIUM CHLORIDE 0.9% 250ML 250 ML ONE (15:36)
[2018-04-28 15:59] VITALS: BP 147/86
[2018-04-28] MEDS: BETAMETHASONE DIP AUG 0.05% CRM 15 GM TUBE TOP SCH (17:13)
--- NOTE | 2018-04-28 19:20 | NUR ---
REPORT GIVEN TO ONCOMING NURSE, PATIENT IS RESTING IN BED. NO ACUTE DISTRESS NOTED. CALL LIGHT WITHIN REACH. BED IN THE LOWEST POSITION. PATIENT REFUSES BED ALARM.
--- NOTE | 2018-04-28 19:22 | NUR ---
Patient received sitting up in bed. AAO x 3. Patient had no complaints of pain. Respirations even and non-labored. Bed locked and in lowest position. Bed rails up x 2. Patient instructed to call for assistance when needed. Call light within reach.
[2018-04-28 20:00] VITALS: BP 145/65
[2018-04-28 21:00] VITALS: BP 145/65
[2018-04-28] MEDS: INSULIN DETEMIR 100 UNIT/ML PEN SQ SCH (21:00)
[2018-04-28] MEDS: ATORVASTATIN 20 MG TAB PO SCH (21:00)
[2018-04-28] MEDS ORDERED: WARFARIN SOD 5 MG TAB PO SCH (21:00)
[2018-04-28] MEDS: TERAZOSIN HCL 5 MG CAP PO SCH (21:00)
[2018-04-29] VITALS (8 sets, daily range): BP systolic 152–181; BP diastolic 65–77
[2018-04-29] MEDS: PIPERACILLIN/TAZO 2.25 GM 50 ML IV SCH ×3 (01:42→17:15)
[2018-04-29] MEDS: INSULIN LISPRO 100 UNIT/1 ML 3ML VIAL SQ SCH ×7 (08:15→20:45)
[2018-04-29] MEDS: CLOTRIMAZOLE 1% CR 15 GM TOP SCH ×2 (09:00→17:02)
[2018-04-29] MEDS: PANTOPRAZOLE SOD 40 MG TABEC PO SCH (09:50)
[2018-04-29] MEDS: DULOXETINE HCL 20 MG DELAYED RELEASE PO SCH (09:50)
[2018-04-29] MEDS: ASPIRIN 81 MG CHEW TAB PO SCH (09:50)
[2018-04-29] MEDS: METOPROLOL TARTRATE 25 MG TAB PO SCH ×2 (09:50→17:15)
[2018-04-29] MEDS: GABAPENTIN 300 MG CAP PO SCH (09:50)
[2018-04-29] MEDS: DOXYCYCLINE HYCLATE TABLET 100 MG TAB PO SCH ×2 (09:50→17:01)
[2018-04-29] MEDS ORDERED: PETROLATUM 30 GM TUBE TP PRN ×2 (12:30→12:45)
--- NOTE | 2018-04-29 13:07 | Progress Note ---
DATE: April 29, 2018 MEDICINE PROGRESS NOTE SUBJECTIVE: Patient is doing well today with no other complaints. OBJECTIVE VITAL SIGNS: Temperature 96.2, pulse 77, respiratory rate is 21, bp 143/63, pulse ox 94%. He is on room air. GENERAL: Not in acute distress. Alert and oriented times 3. Cooperative on examination. HEENT: Head is normocephalic and atraumatic. Eyes: Pupils equal, round and reactive to light bilaterally. Extraocular movements intact bilaterally. NECK: Supple. Good range of motion. Throat with no evidence of any erythema or exudates in the posterior pharynx. Has poor dentition. PULMONARY: Clear to auscultation bilaterally. No wheezing. No rales. No rhonchi. No crackles appreciated. CARDIOVASCULAR: Positive S1 and S2. No murmurs, rubs or gallops appreciated. ABDOMEN: Soft, nondistended and nontender to palpation. Bowel sounds present. MUSCULOSKELETAL: Strength is 5/5 throughout. No evidence of any muscle deficit on examination. No weakness appreciated. NEUROLOGICAL: Cranial nerves II-XII are grossly intact. No evidence of any neurological deficits on exam. SKIN: Intact. Warm to touch. Good cap refill. PSYCHIATRIC: Normal affect and mood. EXTREMITIES: No edema. Good range of motion throughout. LAB FINDINGS: CBC normal. Chemistry normal. MICROBIOLOGY: None. IMPRESSION 1. Acute kidney injury on chronic kidney disease, stage 3. 2. Bilateral lower extremity cellulitis. 3. Community-acquired pneumonia. 4. Type 2 diabetes. 5. Right lower extremity swelling with negative venous Doppler ultrasound for any deep venous thrombosis. PLAN: Continue with IV antibiotics. Put him on Lasix 40 mg IV q.6 h. times 4 doses. Repeat labs in the morning. Patient currently doing well with no other complaints. Likely will be discharged tomorrow. Job#: [id number] RI
--- NOTE | 2018-04-29 14:23 | NUR ---
IMM letter delivered and explained to pt. He verbalized understanding. Signed copy placed in chart. Copy to pt. Business card left with pt for any questions/concerns.
[2018-04-29] MEDS: FUROSEMIDE INJ 10 MG/ML 4 ML VIAL IV SCH ×2 (14:59→18:40)
[2018-04-29] MEDS: POTASSIUM CHLORIDE 20 MEQ TAB CR PO SCH (14:59)
[2018-04-29] MEDS: BETAMETHASONE DIP AUG 0.05% CRM 15 GM TUBE TOP SCH ×2 (14:59→17:02)
[2018-04-29] MEDS: AMMONIUM LACTATE 12% LOTION 225GM BTL TOP SCH ×2 (14:59→17:02)
[2018-04-29] MEDS ORDERED: GABAPENTIN 300 MG CAP PO SCH (17:00)
[2018-04-29] MEDS: GABAPENTIN 400 MG CAP PO SCH (17:01)
--- NOTE | 2018-04-29 19:20 | NUR ---
Patient lying in bed. AAO x 3. No acute distress noted. Fall precautions maintained. Call light within reach.
[2018-04-29] MEDS: INSULIN DETEMIR 100 UNIT/ML PEN SQ SCH (20:45)
[2018-04-29] MEDS: WARFARIN SOD 2.5 MG TAB PO SCH (20:48)
[2018-04-29] MEDS: TERAZOSIN HCL 5 MG CAP PO SCH (20:48)
[2018-04-29] MEDS ORDERED: ATORVASTATIN 40 MG TAB PO SCH (21:00)
[2018-04-30] VITALS: BP 155/63
[2018-04-30] MEDS: FUROSEMIDE INJ 10 MG/ML 4 ML VIAL IV SCH ×2 (00:45→05:37)
[2018-04-30] MEDS: PIPERACILLIN/TAZO 2.25 GM 50 ML IV SCH ×2 (02:08→08:45)
[2018-04-30 02:41] VITALS: BP 155/63
[2018-04-30 04:00] VITALS: BP 156/67
[2018-04-30 04:36] LABS: BASOPHILS % 0.4 % (0.0-1.0); EOSINOPHILS # (AUTO) 0.6 (0.0-0.4); EOSINOPHILS % 8.1 % (0.0-6.0); HEMATOCRIT 37.1 % (38.2-49.6); HEMOGLOBIN 12.1 g/dL (14.0-18.0); LYMPHOCYTES # (AUTO) 1.5 (1.0-3.2); LYMPHOCYTES % 21.9 % (18.0-39.1); MEAN CORPUSCULAR HEMOGLOBIN 29.2 pg (28-32); MEAN CORPUSCULAR HGB CONC 32.6 g/dL (31-35); MEAN CORPUSCULAR VOLUME 89.4 fL (81-99); MONOCYTES # (AUTO) 0.7 (0.2-0.8); MONOCYTES % 10.1 % (4.4-11.3); NEUTROPHILS # (AUTO) 4.2 (2.1-6.9); NEUTROPHILS % 59.4 % (38.7-80.0); PLATELET COUNT 132 x10e3/uL (140-360); RED BLOOD COUNT 4.15 x10e6/uL (4.3-5.7); RED CELL DISTRIBUTION WIDTH 14.5 % (11.7-14.4)
[2018-04-30 04:59] LABS: ANION GAP 13.1 mmol/L (8-16); CALCIUM 8.4 mg/dL (8.4-10.2); CREATININE, SERUM 1.67 mg/dL (0.72-1.25); POTASSIUM 4.1 mmol/L (3.5-5.1)
--- NOTE | 2018-04-30 07:19 | NUR ---
Patient resting comfortably. Shift report given to oncoming nurse.
[2018-04-30 07:56] VITALS: BP 167/75
[2018-04-30] MEDS: DULOXETINE HCL 20 MG DELAYED RELEASE PO SCH (08:45)
[2018-04-30] MEDS: POTASSIUM CHLORIDE 20 MEQ TAB CR PO SCH (08:45)
[2018-04-30] MEDS: GABAPENTIN 400 MG CAP PO SCH (08:45)
[2018-04-30] MEDS: ASPIRIN 81 MG CHEW TAB PO SCH (08:45)
[2018-04-30] MEDS: METOPROLOL TARTRATE 25 MG TAB PO SCH (08:45)
[2018-04-30] MEDS: PANTOPRAZOLE SOD 40 MG TABEC PO SCH (08:45)
[2018-04-30] MEDS: DOXYCYCLINE HYCLATE TABLET 100 MG TAB PO SCH (08:45)
[2018-04-30] MEDS: INSULIN LISPRO 100 UNIT/1 ML 3ML VIAL SQ SCH ×3 (08:45→12:00)
[2018-04-30] MEDS: AMMONIUM LACTATE 12% LOTION 225GM BTL TOP SCH (13:50)
[2018-04-30] MEDS: BETAMETHASONE DIP AUG 0.05% CRM 15 GM TUBE TOP SCH (13:50)
[2018-04-30] MEDS: CLOTRIMAZOLE 1% CR 15 GM TOP SCH (13:50)
--- NOTE | 2018-04-30 13:50 | NUR ---
IV to the right FA removed.
--- NOTE | 2018-04-30 14:41 | NUR ---
Discharge instructions and prescription given to the patient, he verbalized understanding.
[2018-04-30 14:42] VITALS: BP 164/65
--- NOTE | 2018-04-30 14:53 | NUR ---
Patient left the floor via wheelchair, she is discharged home.
--- NOTE | 2018-05-01 08:10 | Discharge Summary ---
FINAL DISCHARGE DIAGNOSES 1. Acute kidney injury on chronic kidney disease, stage 3, now resolved. 2. Bilateral lower extremity cellulitis. 3. Community-acquired pneumonia. 4. Type 2 diabetes. 5. Right lower extremity swelling with negative deep venous thrombosis. This is chronic, likely lymphedema. CONSULTANTS 1. Pulmonary. 2. Wound care. VITAL SIGNS: Temperature is 96.1, pulse 73, respiratory rate is 21, blood pressure 167/75, and pulse ox 93% on room air. LABORATORY FINDINGS: White count of 7, hemoglobin 12, hematocrit 37, and platelets of 132. Coagulation, PT is 23.7 and INR 1.9. Sodium 133, potassium 4.1, chloride 93, and bicarb is 31. Anion gap of 13. BUN is 35 and creatinine 1.6. Glucose is 300. Calcium 8.4. TSH was 4.6. Albumin was 3.3. Vitamin B12 at 270. LFTS were normal. Influenza was negative. Blood cultures were negative. IMAGING STUDIES: Chest x-ray, stable examination, representing there is possible underlying pleural effusion or consolidation. CT chest was performed, shows small focal left upper lobe hazy opacity concerning for developing pneumonia, elevated left hemidiaphragm atelectasis. No pleural effusion. Venous Doppler found to be negative. HOSPITAL COURSE: This is an 78-year-old male who came into the ED with cough, congestion, and subjective fever. Patient was treated for underlying community-acquired pneumonia. He also had lower extremity cellulitis. He was on IV antibiotics. Pulmonary was consulted. All cultures were found to be negative. Wound care was consulted as well for his lower extremity cellulitis. He also has some right lower extremity swelling, likely to be lymphedema with negative venous Doppler for any DVT. Patient did well throughout the hospital course with no other concerns. He was ready for discharge to home and was cleared by all the consultants. Patient will be discharged on oral Augmentin to continue his course for his community-acquired pneumonia. On the day of discharge, vital signs stable, and labs remained stable. The patient was seen, evaluated, and examined thoroughly on the day of discharge with no other complaints. Patient verbalized understanding and agrees with plan of care to follow up accordingly as an outpatient with the primary care physician in 1 week and the consultants as described above in 2 weeks' time. MEDICATIONS: See med reconciliation form, including Augmentin 875 mg 1 tablet p.o. b.i.d. x7 days. DISPOSITION: Home. CONDITION: Stable. DIET: Heart-healthy. In the event of any worsening symptoms, patient was advised to come back to the ED for further evaluation. Discharge summary took greater than 35 minutes. Job#: [id number] JARAD
== END 2018-04-30 14:56 | disposition home or self-care (01) | DRG 871 ==
LOC: ER 21:30 → ERHOLD 04-27 02:27 → IMCU 04-27 07:33 → OBSVTOIN 04-27 16:47 → MED/SURG2 04-28 15:22
PROVIDERS: ADMIT Internal Medicine; ATTEND Internal Medicine
DX: A41.9 Sepsis, unspecified organism (principal); J18.9 Pneumonia, unspecified organism; N17.9 Acute kidney failure, unspecified; L03.115 Cellulitis of right lower limb; E11.22 Type 2 diabetes mellitus with diabetic chronic kidney disease; I12.9 Hypertensive chronic kidney disease with stage 1 through stage 4 chronic kidney disease, or unspecified chronic kidney disease; N18.3 Chronic kidney disease, stage 3 (moderate); Z79.4 Long term (current) use of insulin; E11.621 Type 2 diabetes mellitus with foot ulcer; L97.529 Non-pressure chronic ulcer of other part of left foot with unspecified severity; E11.65 Type 2 diabetes mellitus with hyperglycemia; L97.519 Non-pressure chronic ulcer of other part of right foot with unspecified severity; G47.33 Obstructive sleep apnea (adult) (pediatric); L30.9 Dermatitis, unspecified; L57.0 Actinic keratosis
CPT/HCPCS: 36415; 71045; 71250; 80048; 80053; 81001; 82607; 82948; 83036; 83605; 84443; 85025; 85610; 87040; 87400; 93970; 94660; 99284; J1940; J2543; J7030; J7050

== ENCOUNTER 2018-05-28 11:01 | Inpatient (IN) | payer MEDICARE ==
[~2018-05-28] VITALS: Ht 175.3 cm; Wt 128.8 kg
[~2018-05-28 11:01] MED LIST changes: +CYMBALTA20 MG PO
--- OUTSIDE RECORDS SUMMARY | 2018-05-28 11:04 | XMS REPORT | Clinical Summary ---
Author Author JAYASHREE [facility] Organization [facility] Address Unknown Phone Unavailable Care Team Providers Care Director [employer] Name Role Phone Shahab Chino MD PCP [...] RCA stent and 30-40% distal RCA lesion. [facility] 06/[address] [facility]. 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 Moeller, and she reported the following findings: LM 60% stenosis, RI 90%, LCx occluded, RCA distal 70%. Diabetes 02/01/2013 Mixed hyperlipidemia 02/01/2013 Benign essential hypertension 02/01/2013 Morbid obesity 02/01/2013 S/P coronary artery stent placement - RCA stent - [id number] 02/01/2013 Encounters Care Team Description Date Type Specialty John Paul Conklin MD Lung nodule 08/25/2017 Hospital Radiology Encounter Izaiah Irene MD Lung nodule (Primary Dx) 08/25/2017 Orders Only Lab John Paul Conklin MD Lung nodule (Primary Dx) 08/19/2017 Outside Orders Central Scheduling after 05/27/2017 Social History Date Tobacco Use Types Packs/Day [...] Area Manufactur er 05/15/2019 [id number] / / [id number] Sternal Zipfix,With Needle Sterile Cardiovasc N/A: Sternum SYNTHES Pack Of 20 - [id number] [employer] Implanted: Qty: 1 on 07/18/2014 by Bertram Virk MD 05/15/2019 [id number] / / [id number] Sternal Zipfix,With Needle Sterile Cardiovasc N/A: Sternum SYNTHES Pack Of 20 - [id number] [employer] Implanted: Qty: 1 on 07/18/2014 by Bertram Virk MD Procedures Comments Procedure Name Priority Date/Time Associated Diagnosis CT LIMITED/LOCALIZED Routine 08/25/2017 FOLLOW-UP 1:32 PM CDT PLATELET COUNT STAT 08/25/2017 Lung nodule 11:02 AM CDT PT/APTT STAT 08/25/2017 Lung nodule 11:02 AM CDT after 05/27/2017 Results * CT LIMITED/LOCALIZED FOLLOW-UP (08/25/2017 1:32 PM CDT) Narrative Performed At FINAL REPORT [facility] CT minimal. MEDICAL HISTORY: Lung nodule [...] MD Report Verified Date/Time:08/25/2017 13:48:03 Reading Location: [address] Body Reading Room Procedure Note [...] Report Verified Date/Time: 08/25/2017 13:48:03 Reading Location: [facility] C013Y CT Body Reading Room Performing Organization Address City/[facility] Phone Number GE RIS * PT/aPTT (08/25/2017 11:02 AM CDT) Protime 14.1 11.7 - 14.7 seconds [facility] INR 1.1 <=5.9 [facility] PTT 36.0 22.5 - 36.0 seconds [facility] Specimen Blood Narrative Performed At RECOMMENDED COUMADIN/WARFARIN INR THERAPY RANGES [facility] STANDARD DOSE: 2.0 - 3.0 Includes: PROPHYLAXIS for venous thrombosis, [facility] systemic embolization; TREATMENT for venous thrombosis and/or pulmonary embolus. HIGH RISK: Target INR is 2.5-3.5 for patients with mechanical heart valves. Performing Organization Address City/[facility] Cent[facility]ode Phone Number [facility] [address] [place] [address] [facility] * Platelet count (08/25/2017 11:02 AM CDT) Platelets 182 150 - 450 K/CU MM [facility] Specimen Blood Performing Organization Address [facility] Cent[facility]ode Phone Number [facility] [address] [place] [address] [facility] after 05/27/2017 Insurance Payer Benefit Subscriber ID Type Phone Address Plan / Group [employer] xxxxxxxxx Maps O ALL Contracted Advance Directives For more information, please contact: [facility] [address] [place] [address] Date Inactivated Comments Code Status [...]
[2018-05-28] MEDS ORDERED: SODIUM CHLORIDE 0.9% 1000ML 1,000 ML IV STA (12:01)
[2018-05-28] MEDS ORDERED: INSULIN REGULAR, HUMAN 100 UNIT/1 ML 3ML VIAL ONE (12:25)
[2018-05-28 12:26] LABS: BASOPHILS % 0.4 % (0.0-1.0); EOSINOPHILS # (AUTO) 0.2 (0.0-0.4); EOSINOPHILS % 2.1 % (0.0-6.0); HEMOGLOBIN 13.3 g/dL (14.0-18.0); LYMPHOCYTES # (AUTO) 1.1 (1.0-3.2); LYMPHOCYTES % 9.7 % (18.0-39.1); MEAN CORPUSCULAR HEMOGLOBIN 29.7 pg (28-32); MEAN CORPUSCULAR HGB CONC 34.1 g/dL (31-35); MEAN CORPUSCULAR VOLUME 87.1 fL (81-99); MONOCYTES % 8.6 % (4.4-11.3); NEUTROPHILS # (AUTO) 8.8 (2.1-6.9); NEUTROPHILS % 78.8 % (38.7-80.0); PLATELET COUNT 135 x10e3/uL (140-360); RED BLOOD COUNT 4.48 x10e6/uL (4.3-5.7); RED CELL DISTRIBUTION WIDTH 14.1 % (11.7-14.4)
[2018-05-28 12:35] LABS: INR 2.24; PROTHROMBIN TIME 26.5 seconds (11.9-14.5)
[2018-05-28 12:36] LABS: PARTIAL THROMBOPLASTIN TIME 63.8 seconds (23.8-35.5)
[2018-05-28 12:44] LABS: ALBUMIN 3.3 g/dL (3.5-5.0); ANION GAP 19.1 mmol/L (8-16); CALCIUM 8.5 mg/dL (8.4-10.2); CREATININE, SERUM 2.03 mg/dL (0.72-1.25); POTASSIUM 4.1 mmol/L (3.5-5.1)
[2018-05-28 12:50] LABS: CREATINE KINASE MB 5.5 ng/mL (0-5.0)
--- NOTE | 2018-05-28 12:50 | NUR ---
MELISA FROM LAB CALLED TO REPORT CRITICAL GLUCOSE 568 MG/DL. INFORMED PRIMARY NURSE ANDREW CHAPMAN WELL DR. SUAREZ.
[2018-05-28 12:53] LABS: B-TYPE NATRIURETIC PEPTIDE2 82.3 pg/mL (0-100)
[2018-05-28] MEDS ORDERED: INSULIN REGULAR, HUMAN 100 UNIT/1 ML 3ML VIAL IV ONE (13:00)
[2018-05-28] MEDS: CLINDAMYCIN PHOS 900MG/ 50ML 50 ML IV SCH ×3 (13:12→21:56)
[2018-05-28 13:14] LABS: BILIRUBIN,URINE NEGATIVE (NEGATIVE); CLARITY,URINE HAZY (CLEAR); COLOR,URINE YELLOW (YELLOW); KETONES,URINE NEGATIVE (NEGATIVE); LEUKOCYTE ESTERASE ,URINE NEGATIVE (NEGATIVE); NITRITE,URINE NEGATIVE (NEGATIVE); PROTEIN,URINE DIPSTICK NEGATIVE (NEGATIVE); URINE UROBILINOGEN 0.2 mg/dL (0.2 - 1)
[2018-05-28] MEDS ORDERED: SODIUM CHLORIDE 0.9% 1000ML 1,000 ML IV ONE (13:15)
[2018-05-28] MEDS ORDERED: DEXTROSE 50% SYRINGE 50 ML IV PRN (13:15)
[2018-05-28] MEDS ORDERED: ONDANSETRON HCL INJ 2MG/ML 2ML 2 MG/ML VIAL IV PRN (13:15)
[2018-05-28 13:17] LABS: BACTERIA,URINE FEW /HPF; EPITHELIAL CELLS,URINE FEW /LPF; WBC,URINE (MAN) 0-5 /HPF (0-5)
--- OUTSIDE RECORDS SUMMARY | 2018-05-28 13:21 | XMS REPORT | Clinical Summary ---
Author Author JAYASHREE [facility] Organization [facility] Address Unknown Phone Unavailable Care Team Providers Care [employer] Administrator Name Role Phone Shahab Chion MD PCP Unavailable Allergies Comments Active Allergy [...] RCA stent and 30-40% distal RCA lesion. [facility] 06/2014 at [facility]. 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 Moeller, and she reported the following findings: LM 60% stenosis, RI 90%, LCx occluded, RCA distal 70%. Diabetes 02/01/2013 Mixed hyperlipidemia 02/01/2013 Benign essential hypertension 02/01/2013 Morbid obesity 02/01/2013 S/P coronary artery stent placement - RCA stent - [id number] 02/01/2013 Encounters Care Team Description Date Type [...] Area Manufactur er 05/15/2019 08.501.001.20S / / [id number] Sternal Zipfix,With Needle Sterile Cardiovasc N/A: Sternum SYNTHES Pack Of 20 - [id number] [employer] Implanted: Qty: 1 on 07/18/2014 by Bertram Virk MD 05/15/2019 08.501.001.20S / / [id number] Sternal Zipfix,With Needle Sterile Cardiovasc N/A: Sternum SYNTHES Pack Of 20 - [id number] [employer] Implanted: Qty: 1 on 07/18/2014 by Bertram Virk MD Procedures Comments Procedure Name Priority Date/Time Associated Diagnosis CT LIMITED/LOCALIZED Routine 08/25/2017 FOLLOW-UP 1:32 PM CDT PLATELET COUNT STAT 08/25/2017 Lung nodule 11:02 AM CDT PT/APTT STAT 08/25/2017 Lung nodule 11:02 AM CDT after 05/27/2017 Results * CT LIMITED/LOCALIZED FOLLOW-UP (08/25/2017 1:32 PM CDT) Narrative Performed At FINAL REPORT [facility] CT minimal. MEDICAL HISTORY: Lung nodule for [...] Report Verified Date/Time:08/25/2017 13:48:03 Reading Location: [address] Body Reading Room Procedure Note [...] Report Verified Date/Time: 08/25/2017 13:48:03 Reading Location: [facility] C013Y CT Body Reading Room Performing Organization Address City/[facility] Phone Number GE RIS * PT/aPTT (08/25/2017 11:02 AM CDT) Protime 14.1 11.7 - 14.7 seconds [facility] INR 1.1 <=5.9 [facility] PTT 36.0 22.5 - 36.0 seconds [facility] Specimen Blood Narrative Performed At RECOMMENDED COUMADIN/WARFARIN INR THERAPY RANGES [facility] STANDARD DOSE: 2.0 - 3.0 Includes: PROPHYLAXIS for venous thrombosis, [facility] systemic embolization; TREATMENT for venous thrombosis and/or pulmonary embolus. HIGH RISK: Target INR is 2.5-3.5 for patients with mechanical heart valves. Performing Organization Address City/[facility] Cent[facility]ode Phone Number [facility] [address] [place] [address] [facility] * Platelet count (08/25/2017 11:02 AM CDT) Platelets 182 150 - 450 K/CU MM [facility] Specimen Blood Performing Organization Address [facility] Centercode Phone Number [facility] [address] [place] [address] [facility] after 05/27/2017 Insurance Payer Benefit Subscriber ID Type Phone Address Plan / Group [employer] xxxxxxxxx Maps O ALL Contracted Advance Directives For more information, please contact: [facility] [address] [place] [address] Date Inactivated Comments Code Status [...]
[2018-05-28] MEDS ORDERED: CLINDAMYCIN PHOS 900MG/ 50ML 50 ML IV SCH (14:00)
[2018-05-28] MEDS: INSULIN DETEMIR 100 UNIT/ML PEN SQ SCH (14:46)
[2018-05-28] MEDS ORDERED: PIPERACILLIN/TAZO 2.25 GM 50 ML IV SCH ×2 (15:00→18:00)
--- NOTE | 2018-05-28 15:30 | NUR ---
Pt admitted to the floor at this time for cellulitis of BLE. Pt is aox4 and able to verbalize needs. Denies any pain at this time. Pt is on IVF @75ml/hr and well tolerated. Pt has been seen Dr. Loco in ER. 0 s/s of acute distress noted.
--- NOTE | 2018-05-28 15:32 | Diagnostic Imaging Report ---
EXAMINATION: CHEST SINGLE (PORTABLE) COMPARISON: CTA chest 04/27/2018, chest x-ray 04/26/2018 INDICATION: ^R/O PULM EDEMA ^[id number] ^1410 DISCUSSION: Frontal view of the chest obtained at 1426 hours. HEART AND MEDIASTINUM: Stable eventration of the left diaphragm. Left heart border remains obscured LINES: None. LUNGS: No mass or infiltrate in the right lung. Left upper lobe is clear. Pulmonary vascular markings are normal. PLEURA: No large effusions. No pneumothorax. BONES AND SOFT TISSUES: Median sternotomy wires are stable. No focal osseous lesions. The soft tissues are normal. IMPRESSION: No evidence of vascular congestion or pulmonary edema. Stable eventration of the left diaphragm. Stable cardiomegaly. Signed by: Dr. Hien Hooks MD on 05/28/2018 3:28 PM
[2018-05-28 15:45] VITALS: BP 154/60
[2018-05-28 16:21] VITALS: BP 154/60
[2018-05-28] MEDS ORDERED: WARFARIN SOD 2.5 MG TAB PO SCH (17:00)
[2018-05-28] MEDS: WARFARIN SOD 2.5 MG TAB PO SCH (17:45)
[2018-05-28] MEDS: INSULIN LISPRO 100 UNIT/1 ML 3ML VIAL SQ SCH ×2 (17:45→20:48)
[2018-05-28] MEDS: METOPROLOL TARTRATE 25 MG TAB PO SCH (17:46)
[2018-05-28] MEDS: GABAPENTIN 300 MG CAP PO SCH (17:46)
[2018-05-28] MEDS: LACTOBACILLUS ACIDOPHILUS CAPSULE PO SCH (17:47)
--- NOTE | 2018-05-28 18:47 | NUR ---
Received call from Lab to report lactic acid of 27.4. Dr. Loco notified of lactic acid level. Received orders to repeat lactic acid in am. Pt is aox4 and able to verbalize needs. V/S 154/60, p-60, r-18, temp- 97.9, o2 sat98%.
--- NOTE | 2018-05-28 19:35 | NUR ---
Patient visited in room during nursing rounds. Patient alert and oriented x3. Both legs edematous but left leg appear more erythematous than the right leg. Patient instructed to call especially when needing to get up and out of bed. IVF (NS at 75ml/hr) infusing. Call ortega within reach. Will monitor closely.
[2018-05-28 20:00] VITALS: BP 142/47
[2018-05-28] MEDS: ATORVASTATIN 20 MG TAB PO SCH (20:48)
[2018-05-28] MEDS: TERAZOSIN HCL 5 MG CAP PO SCH (20:48)
[2018-05-29] VITALS (7 sets, daily range): BP systolic 107–154; BP diastolic 43–68
[2018-05-29] MEDS ORDERED: SODIUM CHLORIDE 0.9% 250ML 250 ML ONE ×2 (06:13→21:11)
[2018-05-29] MEDS: CLINDAMYCIN PHOS 900MG/ 50ML 50 ML IV SCH ×3 (06:30→21:22)
[2018-05-29 08:09] LABS: BASOPHILS % 0.3 % (0.0-1.0); EOSINOPHILS # (AUTO) 0.3 (0.0-0.4); EOSINOPHILS % 3.6 % (0.0-6.0); HEMATOCRIT 37.5 % (38.2-49.6); LYMPHOCYTES # (AUTO) 1.6 (1.0-3.2); LYMPHOCYTES % 18.2 % (18.0-39.1); MEAN CORPUSCULAR HEMOGLOBIN 28.6 pg (28-32); MEAN CORPUSCULAR VOLUME 89.5 fL (81-99); MONOCYTES % 11.3 % (4.4-11.3); NEUTROPHILS # (AUTO) 5.9 (2.1-6.9); NEUTROPHILS % 66.3 % (38.7-80.0); PLATELET COUNT 127 x10e3/uL (140-360); RED BLOOD COUNT 4.19 x10e6/uL (4.3-5.7); RED CELL DISTRIBUTION WIDTH 14.3 % (11.7-14.4)
[2018-05-29] MEDS: DULOXETINE HCL 20 MG DELAYED RELEASE PO SCH (08:10)
[2018-05-29] MEDS: METOPROLOL TARTRATE 25 MG TAB PO SCH ×2 (08:10→17:34)
[2018-05-29] MEDS: GABAPENTIN 300 MG CAP PO SCH ×2 (08:10→17:34)
[2018-05-29] MEDS: ASPIRIN 81 MG CHEW TAB PO SCH (08:10)
[2018-05-29] MEDS: LACTOBACILLUS ACIDOPHILUS CAPSULE PO SCH ×2 (08:10→17:34)
[2018-05-29] MEDS: INSULIN DETEMIR 100 UNIT/ML PEN SQ SCH ×2 (08:12→17:35)
[2018-05-29] MEDS: INSULIN LISPRO 100 UNIT/1 ML 3ML VIAL SQ SCH ×4 (08:12→21:22)
[2018-05-29 08:16] LABS: ANION GAP 15.8 mmol/L (8-16); CALCIUM 8.2 mg/dL (8.4-10.2); CREATININE, SERUM 1.81 mg/dL (0.72-1.25); POTASSIUM 3.8 mmol/L (3.5-5.1)
[2018-05-29 08:23] LABS: INR 2.88; PROTHROMBIN TIME 32.2 seconds (11.9-14.5)
[2018-05-29] MEDS: WARFARIN SOD 2.5 MG TAB PO SCH (17:34)
--- NOTE | 2018-05-29 19:35 | NUR ---
Patient visited in room during nursing rounds. Patient alert and oriented x3. Both legs edematous and erythematous but improving. Patient instructed to call especially when needing to get up and out of bed. On scheduled IV antibiotics. Call ortega within reach. Will monitor closely.
[2018-05-29] MEDS: TERAZOSIN HCL 5 MG CAP PO SCH (21:21)
[2018-05-29] MEDS: ATORVASTATIN 20 MG TAB PO SCH (21:21)
[2018-05-30 00:24] VITALS: BP 136/54
[2018-05-30 04:43] VITALS: BP 140/63
[2018-05-30] MEDS: CLINDAMYCIN PHOS 900MG/ 50ML 50 ML IV SCH (06:00)
[2018-05-30 06:02] LABS: BASOPHILS % 0.5 % (0.0-1.0); EOSINOPHILS # (AUTO) 0.4 (0.0-0.4); EOSINOPHILS % 5.8 % (0.0-6.0); HEMATOCRIT 38.6 % (38.2-49.6); HEMOGLOBIN 12.4 g/dL (14.0-18.0); LYMPHOCYTES # (AUTO) 1.8 (1.0-3.2); LYMPHOCYTES % 23.5 % (18.0-39.1); MEAN CORPUSCULAR HEMOGLOBIN 28.8 pg (28-32); MEAN CORPUSCULAR HGB CONC 32.1 g/dL (31-35); MEAN CORPUSCULAR VOLUME 89.6 fL (81-99); MONOCYTES # (AUTO) 0.8 (0.2-0.8); MONOCYTES % 10.6 % (4.4-11.3); NEUTROPHILS # (AUTO) 4.4 (2.1-6.9); NEUTROPHILS % 59.3 % (38.7-80.0); PLATELET COUNT 134 x10e3/uL (140-360); RED BLOOD COUNT 4.31 x10e6/uL (4.3-5.7); RED CELL DISTRIBUTION WIDTH 14.2 % (11.7-14.4)
[2018-05-30 06:24] LABS: INR 2.79; PROTHROMBIN TIME 31.4 seconds (11.9-14.5)
[2018-05-30 06:41] LABS: ANION GAP 14.9 mmol/L (8-16); CALCIUM 8.1 mg/dL (8.4-10.2); CREATININE, SERUM 1.58 mg/dL (0.72-1.25); POTASSIUM 3.9 mmol/L (3.5-5.1)
[2018-05-30] MEDS: INSULIN LISPRO 100 UNIT/1 ML 3ML VIAL SQ SCH ×2 (07:30→11:30)
[2018-05-30 07:40] VITALS: BP 118/50
--- NOTE | 2018-05-30 07:40 | NUR ---
PATIENT IS AWAKE AND IN STABLE CONDITION WITH NO S/S OF RESPIRATORY DISTRESS. PATIENT IS SITTING UP IN THE RECLINER. NO PAIN VOICED. RIGHT LOWER EXTREMITY HAS PITTING EDEMA +1. SLIGHT REDNESS NOTED TO LEFT AND RIGHT LOWER LEGS. CALL LIGHT IS WITHIN REACH, INSTRUCTED TO CALL FOR ASSISTANCE NEEDED.
[2018-05-30 07:49] VITALS: BP 118/50
[2018-05-30] MEDS: LACTOBACILLUS ACIDOPHILUS CAPSULE PO SCH (08:39)
[2018-05-30] MEDS: INSULIN DETEMIR 100 UNIT/ML PEN SQ SCH (08:39)
[2018-05-30] MEDS: GABAPENTIN 300 MG CAP PO SCH (08:39)
[2018-05-30] MEDS: DULOXETINE HCL 20 MG DELAYED RELEASE PO SCH (08:39)
[2018-05-30] MEDS: ASPIRIN 81 MG CHEW TAB PO SCH (08:39)
[2018-05-30] MEDS: METOPROLOL TARTRATE 25 MG TAB PO SCH (08:40)
[2018-05-30 12:00] VITALS: BP 153/68
--- NOTE | 2018-05-30 13:13 | Discharge Summary ---
FINAL DIAGNOSIS: Left leg cellulitis. SECONDARY DIAGNOSES 1. Uncontrolled diabetes, better. 2. Morbid obesity. 3. Paroxysmal atrial fibrillation. Continue Coumadin. 4. Hypertension. 5. Stage 3 chronic kidney disease due to diabetes, stable. CONSULTANTS: None. PROCEDURES/STUDIES PERFORMED: None. HISTORY: Per H&P. HOSPITAL COURSE: Patient was started on IV clindamycin. He responded very well. Will go ahead and let him go home on oral clindamycin today for another week. Patient will follow up with his primary care doctor in 1 week. He was told that if he develops diarrhea, to call his primary care doctor right away. I will also prescribe some probiotics as well. His white count came down nicely. I held his diuretics and his creatinine improved a little bit from 2.03 to 1.58, however, still stage 3 by GFR. Patient was seen and examined today. I took 31 minutes total to discharge this patient. I also notified his primary care doctor about this hospitalization. Etiology for his recurrent cellulitis is multifactorial. Part of it is severe peripheral vascular disease. Part of it is chronic lymphedema. Also has communicated with his PCP about possibly starting him on chronic suppressive antibiotic. CARROLL LIMA M.D. Job#: [id number] TA cc:ALEKSEY PANDA MD,
[2018-05-30] MEDS ORDERED: ACIDOPHILUS1 EAC1 PO (14:04)
[2018-05-30] MEDS ORDERED: CLINDAMYCIN HC150 MG PO (14:05)
--- NOTE | 2018-05-30 15:11 | NUR ---
PATIENT DISCHARGE HOME- PATIENT OFF THE UNIT AT 1426 PER WHEELCHAIR ACCOMPANIED BY PCT TO THE FRONT LOBBY. PATIENT IS IN STABLE CONDITION WITH NO S/S OF RESPIRATORY DISTRESS. NO PAIN VOICED. IV REMOVED WITH TIP INTACT AT 1419. DISCHARGE INSTRUCTIONS, TEACHING, AND MEDICATIONS WERE GIVEN TO THE PATIENT. ALL PERSONAL ITEMS WERE TAKEN WITH THE PATIENT.
[2018-05-30] MEDS ORDERED: ATORVASTATIN 40 MG TAB PO SCH (21:00)
== END 2018-05-30 14:30 | disposition home or self-care (01) | DRG 603 ==
LOC: ER 11:01 → ERHOLD 13:02 → MED/SURG3 15:15
PROVIDERS: ADMIT Internal Medicine; ATTEND Internal Medicine
DX: L03.116 Cellulitis of left lower limb (principal); Z68.41 Body mass index [BMI] 40.0-44.9, adult; L03.115 Cellulitis of right lower limb; N28.9 Disorder of kidney and ureter, unspecified; E11.65 Type 2 diabetes mellitus with hyperglycemia; E11.42 Type 2 diabetes mellitus with diabetic polyneuropathy; I25.10 Atherosclerotic heart disease of native coronary artery without angina pectoris; E11.22 Type 2 diabetes mellitus with diabetic chronic kidney disease; I12.9 Hypertensive chronic kidney disease with stage 1 through stage 4 chronic kidney disease, or unspecified chronic kidney disease; Z95.1 Presence of aortocoronary bypass graft; Z88.1 Allergy status to other antibiotic agents; Z88.8 Allergy status to other drugs, medicaments and biological substances; E66.01 Morbid (severe) obesity due to excess calories; N18.3 Chronic kidney disease, stage 3 (moderate); I48.0 Paroxysmal atrial fibrillation; Z79.01 Long term (current) use of anticoagulants; Z79.4 Long term (current) use of insulin
CPT/HCPCS: 36415; 71045; 80048; 80053; 81001; 82550; 82553; 82948; 83605; 83880; 84484; 85025; 85610; 85730; 87040; 87086; 99284; J7030; J7050

== ENCOUNTER 2018-06-05 09:59 | Inpatient (IN) | payer MEDICARE, OTHER ==
[2018-06-05] VITALS (12 sets, daily range): BP systolic 94–161; BP diastolic 39–119
[~2018-06-05] VITALS: Ht 175.3 cm; Wt 129.8 kg
[~2018-06-05 09:59] MED LIST changes: +ACIDOPHILUS1 EAC1 PO; +CLINDAMYCIN HC150 MG PO
--- OUTSIDE RECORDS SUMMARY | 2018-06-05 10:01 | XMS REPORT | Clinical Summary ---
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 [facility] 06/2014 at [facility]. Cath film reviewed by his displayer, Dr. Moeller, and she reported the following findings: LM 60% stenosis, RI 90%, LCx occluded, RCA distal 70%. Diabetes 02/01/2013 Mixed hyperlipidemia 02/01/2013 Benign essential hypertension 02/01/2013 Morbid obesity 02/01/2013 S/P coronary artery stent placement - RCA stent - [id number] 02/01/2013 Encounters Care Team Description Date Type Specialty John Paul Conklin MD Lung nodule 08/25/2017 Hospital Radiology Encounter Izaiah Irene MD Lung nodule (Primary Dx) 08/25/2017 Orders Only Lab John Paul Conklin MD Lung nodule (Primary Dx) 08/19/2017 Outside Orders Central Scheduling after 06/04/2017 Social History Date Tobacco Use Types Packs/Day [...] Area Manufactur er 05/15/2019 08.501.001.20S / / [id number] Sternal Zipfix,With Needle Sterile Cardiovasc N/A: Sternum SYNTHES Pack Of 20 - [id number] [employer] Implanted: Qty: 1 on 07/18/2014 by Bertram Virk MD 05/15/2019 08.501.001.20S / / [id number] Sternal Zipfix,With Needle Sterile Cardiovasc N/A: Sternum SYNTHES Pack Of 20 - [id number] [employer] Implanted: Qty: 1 on 07/18/2014 by Bertram Virk MD Procedures Comments Procedure Name Priority Date/Time Associated Diagnosis CT LIMITED/LOCALIZED Routine 08/25/2017 FOLLOW-UP 1:32 PM CDT PLATELET COUNT STAT 08/25/2017 Lung nodule 11:02 AM CDT PT/APTT STAT 08/25/2017 Lung nodule 11:02 AM CDT after 06/04/2017 Results * CT LIMITED/LOCALIZED FOLLOW-UP (08/25/2017 1:32 PM CDT) Narrative Performed At FINAL REPORT [facility] CT minimal. MEDICAL HISTORY: Lung nodule for [...] MD Report Verified Date/Time:08/25/2017 13:48:03 Reading Location: [address] Body Reading Room Procedure Note [...] Report Verified Date/Time: 08/25/2017 13:48:03 Reading Location: [facility] C013Y CT Body Reading Room Performing Organization Address City/[facility]ercode Phone Number GE RIS * PT/aPTT (08/25/2017 11:02 AM CDT) Protime 14.1 11.7 - 14.7 seconds [facility] INR 1.1 <=5.9 [facility] PTT 36.0 22.5 - 36.0 seconds [facility] Specimen Blood Narrative Performed At RECOMMENDED COUMADIN/WARFARIN INR THERAPY RANGES [facility] STANDARD DOSE: 2.0 - 3.0 Includes: PROPHYLAXIS for venous thrombosis, [facility] systemic embolization; TREATMENT for venous thrombosis and/or pulmonary embolus. HIGH RISK: Target INR is 2.5-3.5 for patients with mechanical heart valves. Performing Organization Address City/[facility] Centercode Phone Number [facility] [address] [place] [address] [facility] * Platelet count (08/25/2017 11:02 AM CDT) Platelets 182 150 - 450 K/CU MM [facility] Specimen Blood Performing Organization Address [facility] Centercode Phone Number [facility] [address] [place] [address] [facility] after 06/04/2017 Insurance Payer Benefit Subscriber ID Type Phone Address Plan / Group [employer] xxxxxxxxx Maps O ALL Contracted Advance Directives For more information, please contact: [facility] [address] [place] [address] Date Inactivated Comments Code Status [...]
[2018-06-05] MEDS ORDERED: PIPER-TAZ 3.375 GM 50 ML IV STA (10:11)
[2018-06-05] MEDS ORDERED: SODIUM CHLORIDE 0.9% 1000ML 2,000 ML IV STA (10:11)
[2018-06-05] MEDS ORDERED: LINEZOLID 600 MG/D5W 300ML 300 ML IV STA (10:15)
[2018-06-05] MEDS ORDERED: ACETAMINOPHEN 1000 MG/100 ML IV NR (10:32)
[2018-06-05 10:37] LABS: BASOPHILS # (AUTO) 0.1 (0.0-0.1); BASOPHILS % 0.3 % (0.0-1.0); EOSINOPHILS # (AUTO) 0.2 (0.0-0.4); EOSINOPHILS % 0.8 % (0.0-6.0); HEMATOCRIT 43.7 % (38.2-49.6); HEMOGLOBIN 14.6 g/dL (14.0-18.0); LYMPHOCYTES # (AUTO) 0.6 (1.0-3.2); LYMPHOCYTES % 3.1 % (18.0-39.1); MEAN CORPUSCULAR HEMOGLOBIN 29.3 pg (28-32); MEAN CORPUSCULAR HGB CONC 33.4 g/dL (31-35); MEAN CORPUSCULAR VOLUME 87.6 fL (81-99); MONOCYTES % 5.2 % (4.4-11.3); NEUTROPHILS # (AUTO) 17.5 (2.1-6.9); NEUTROPHILS % 89.9 % (38.7-80.0); PLATELET COUNT 177 x10e3/uL (140-360); RED BLOOD COUNT 4.99 x10e6/uL (4.3-5.7)
[2018-06-05 10:44] LABS: INR 1.84; PROTHROMBIN TIME 22.7 seconds (11.9-14.5)
[2018-06-05 10:45] LABS: PARTIAL THROMBOPLASTIN TIME 58.1 seconds (23.8-35.5)
[2018-06-05 10:48] LABS: CLARITY,URINE CLEAR (CLEAR); COLOR,URINE YELLOW (YELLOW)
[2018-06-05 10:49] LABS: BACTERIA,URINE RARE /HPF; BILIRUBIN,URINE NEGATIVE (NEGATIVE); KETONES,URINE NEGATIVE (NEGATIVE); LEUKOCYTE ESTERASE ,URINE NEGATIVE (NEGATIVE); NITRITE,URINE NEGATIVE (NEGATIVE); PROTEIN,URINE DIPSTICK 2+ (NEGATIVE); RBC,URINE 0-5 /HPF (0-5); URINE UROBILINOGEN 0.2 mg/dL (0.2 - 1); WBC,URINE (MAN) 0-5 /HPF (0-5)
[2018-06-05 10:56] LABS: ALBUMIN 3.7 g/dL (3.5-5.0); ALBUMIN/GLOBULIN RATIO 0.9 (0.8-2.0); ANION GAP 19.2 mmol/L (8-16); CALCIUM 8.9 mg/dL (8.4-10.2); CREATININE, SERUM 2.15 mg/dL (0.72-1.25); MAGNESIUM 1.7 MG/DL (1.3-2.1); POTASSIUM 4.2 mmol/L (3.5-5.1)
[2018-06-05 11:04] LABS: CREATINE KINASE MB 5.3 ng/mL (0-5.0)
[2018-06-05] MEDS ORDERED: INSULIN REGULAR, HUMAN 100 UNIT/1 ML 3ML VIAL SQ NR ×2 (11:15→15:00)
[2018-06-05] MEDS ORDERED: INSULIN REGULAR, HUMAN 100 UNIT/1 ML 3ML VIAL IV NR (11:15)
--- NOTE | 2018-06-05 11:20 | Diagnostic Imaging Report ---
EXAMINATION: CHEST SINGLE (PORTABLE) INDICATION: Sepsis. COMPARISON: Chest x-ray 05/28/2018 FINDINGS: AP view TUBES and LINES: Median sternotomy wires. LUNGS: Mild breathing motion artifact. Right lung is well-inflated. Left hemidiaphragm is elevated. There are bibasilar atelectasis. There is perihilar interstitial opacities, consistent with interstitial edema. PLEURA: No pleural effusion or pneumothorax. HEART AND MEDIASTINUM: The cardiomediastinal silhouette is unremarkable. There are atherosclerotic calcifications within the aorta. BONES AND SOFT TISSUES: No acute osseous lesion. Soft tissues are unremarkable. UPPER ABDOMEN: No free air under the diaphragm. IMPRESSION: Unchanged interstitial edema. Signed by: Dr. Dillan Ibrahim M.D. on 06/05/2018 11:16 AM
[2018-06-05] MEDS ORDERED: GENTAMICIN SULFATE 100 MG in SODIUM CHLORIDE 0.9% 100 ML 100 ML IV NR (11:30)
--- NOTE | 2018-06-05 11:42 | NUR ---
LESLIE WILEY AT SIDE
--- NOTE | 2018-06-05 11:42 | NUR ---
R.T. CALLED TO HUMIDIFY O2 FOR THIS PATIENT. TEMP DOWN TO 100.9. REC'D REPORT FROM DEUCE FIERRO FOR CONTINUITY OF CARE.
[2018-06-05] MEDS ORDERED: SODIUM CHLORIDE 0.9% 1000ML 1,000 ML ONE (12:13)
[2018-06-05] MEDS ORDERED: DEXTROSE 50% SYRINGE 50 ML IV PRN ×2 (12:15→16:45)
--- OUTSIDE RECORDS SUMMARY | 2018-06-05 12:20 | XMS REPORT | Clinical Summary ---
Author Author JAYASHREE [facility] Organization [facility] Address Unknown Phone Unavailable Care Team Providers Care Heel Caser Name Role Phone Shahab Chino MD PCP [...] RCA stent and 30-40% distal RCA lesion. [facility] 06/2014 at [facility]. Cath film reviewed by his extension course counselor, Dr. Moleler, and she reported the following findings: LM 60% stenosis, RI 90%, LCx occluded, RCA distal 70%. Diabetes 02/01/2013 Mixed hyperlipidemia 02/01/2013 Benign essential hypertension 02/01/2013 Morbid obesity 02/01/2013 S/P coronary artery stent placement - RCA stent - [id number] 02/01/2013 Encounters Care Team Description Date Type [...] Area Manufactur er 05/15/2019 08.501.001.20S / / [id number] Sternal Zipfix,With Needle Sterile Cardiovasc N/A: Sternum SYNTHES Pack Of 20 - [id number] [employer] Implanted: Qty: 1 on 07/18/2014 by Bertram Virk MD 05/15/2019 08.501.001.20S / / [id number] Sternal Zipfix,With Needle Sterile Cardiovasc N/A: Sternum SYNTHES Pack Of 20 - [id number] [employer] Implanted: Qty: 1 on 07/18/2014 by Bertram Virk MD Procedures Comments Procedure Name Priority Date/Time Associated Diagnosis CT LIMITED/LOCALIZED Routine 08/25/2017 FOLLOW-UP 1:32 PM CDT PLATELET COUNT STAT 08/25/2017 Lung nodule 11:02 AM CDT PT/APTT STAT 08/25/2017 Lung nodule 11:02 AM CDT after 06/04/2017 Results * CT LIMITED/LOCALIZED FOLLOW-UP (08/25/2017 1:32 PM CDT) Narrative Performed At FINAL REPORT [facility] CT minimal. MEDICAL HISTORY: Lung nodule for [...] MD Report Verified Date/Time:08/25/2017 13:48:03 Reading Location: [address] Body Reading Room Procedure Note [...] Report Verified Date/Time: 08/25/2017 13:48:03 Reading Location: [facility] C013Y CT Body Reading Room Performing Organization Address City/[facility] Phone Number GE RIS * PT/aPTT (08/25/2017 11:02 AM CDT) Protime 14.1 11.7 - 14.7 seconds [facility] INR 1.1 <=5.9 [facility] PTT 36.0 22.5 - 36.0 seconds [facility] Specimen Blood Narrative Performed At RECOMMENDED COUMADIN/WARFARIN INR THERAPY RANGES [facility] STANDARD DOSE: 2.0 - 3.0 Includes: PROPHYLAXIS for venous thrombosis, [facility] systemic embolization; TREATMENT for venous thrombosis and/or pulmonary embolus. HIGH RISK: Target INR is 2.5-3.5 for patients with mechanical heart valves. Performing Organization Address City/[facility] Hospitalcode Phone Number [facility] [address] [place] [address] [facility] * Platelet count (08/25/2017 11:02 AM CDT) Platelets 182 150 - 450 K/CU MM [facility] Specimen Blood Performing Organization Address [facility] Hospitalcode Phone Number [facility] [address] [place] [address] [facility] after 06/04/2017 Insurance Payer Benefit Subscriber ID Type Phone Address Plan / Group [employer] xxxxxxxxx Maps O ALL Contracted Advance Directives For more information, please contact: [facility] [address] [place] [address] Date Inactivated Comments Code Status [...]
--- NOTE | 2018-06-05 12:30 | NUR ---
Amado brandon in [facility] - 06/05/18 at 1312 by MICHELLE BEDSIDE REPORT GIVEN TO ANDREW FIERRO
[2018-06-05] MEDS: SODIUM CHLORIDE 0.9% 1000ML 1,000 ML IV SCH ×2 (13:30→20:02)
[2018-06-05] MEDS: INSULIN REGULAR, HUMAN 100 UNIT/1 ML 3ML VIAL SQ SCH ×2 (14:56→20:15)
--- NOTE | 2018-06-05 15:00 | NUR ---
recvd pt from er via stretcher, no family at bedside. initial assessment completed and recorded. vss and recorded.
--- NOTE | 2018-06-05 16:48 | NUR ---
dr vega making rounds and changes in poc
[2018-06-05] MEDS: WARFARIN SOD 5 MG TAB PO SCH (16:55)
[2018-06-05] MEDS: METOPROLOL TARTRATE 25 MG TAB PO SCH (16:56)
[2018-06-05] MEDS: WARFARIN SOD 2.5 MG TAB PO SCH (16:57)
[2018-06-05] MEDS: GABAPENTIN 300 MG CAP PO SCH (16:57)
[2018-06-05] MEDS: LACTOBACILLUS ACIDOPHILUS CAPSULE PO SCH (16:59)
[2018-06-05] MEDS ORDERED: INSULIN REGULAR, HUMAN 3ML VL 100 UNIT in SODIUM CHLORIDE 0.9% 100 ML 99 ML IV SCH ×2 (17:00)
[2018-06-05] MEDS: PIPERACILLIN/TAZO 2.25 GM 50 ML IV SCH (17:00)
--- NOTE | 2018-06-05 17:00 | NUR ---
dr vega making rounds orders recvd and being completed. called office of dr tejada for consult spoke with fab
[2018-06-05 17:42] LABS: FREE T4 (FREE THYROXINE) 0.95 ng/dL (0.9-1.8); THYROID STIMULATING HORMONE 2.134 uIU/mL (0.350-4.940)
[2018-06-05] MEDS: INSULIN REGULAR, HUMAN 3ML VL 100 UNIT in SODIUM CHLORIDE 0.45% 100 ML 99 ML IV SCH ×6 (17:54→22:00)
--- NOTE | 2018-06-05 19:06 | History and Physical ---
PRIMARY DOCTOR: Dr. Jacobson at [facility]. HOSPITAL COVERAGE: Dr. Mauri Loco. HISTORY OF PRESENT ILLNESS: Mr. Souza is a pleasant 78-year-old gentleman with altered mental status. His concerned that he was not acting correctly. He was recently hospitalized and discharged on May 30, 2018 for treatment of cellulitis. He started to respond well to treatment and he was supposed to followup with his PCP for re-evaluation. Patient was also noted to have worsening leg pain. Patient was noted to have a fever when he presented to emergency room at 103 degrees Fahrenheit. He has tachycardia that was significant as well. Patient was given initially antibiotics and he was treated with early goal-directed therapy with IV fluid loading. Of note, work up included white count of 19.4, platelets 177, hematocrit 44. Lactic acid level was 29. His creatinine was 2.1 which was very mildly above his baseline. His blood sugar was 503. Decision was made for hospitalization. His lowest blood pressure was 123 despite the lactic acidosis. Of note, a lot of redness was to his left leg, but the right leg is also hot. PAST MEDICAL HISTORY: Diabetes, CKD, neuropathy, dyslipidemia, depression, anxiety disorder, atrial fibrillation, enlarged prostate, obstructive sleep apnea, coronary artery disease and history of CABG in 2017, left hemidiaphragmatic elevation. SOCIAL HISTORY: No smoking, no drinking, no drugs. 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 FAMILY HISTORY: Noncontributory. MEDICATIONS: Medication list reviewed per electronic record. He has already received Zosyn and Zyvox in the emergency room. ALLERGIES: SITAGLIPTIN, EXENATIDE, VANCOMYCIN, AND QUINAPRIL. REVIEW OF SYSTEMS GENERAL: No weight changes. OPHTHALMOLOGIC: No double vision. ENT: No mouth ulcers. ENDOCRINE: No thyroid disorder. PULMONARY: No asthma. CARDIAC: No heart attack recently. GI: No constipation. : No blood in urine. DERMATOLOGIC: No other rashes except in legs. NEUROLOGIC: No seizures. MUSCULOSKELETAL: No rheumatoid disease. OBJECTIVE VITAL SIGNS: Currently, fever is better. Vital signs per electronic record. Heart rate has come down to 79. Blood pressure remained sustained. GENERAL: In bed, looks kind of weak and pale. HEENT: Normocephalic, atraumatic. NECK: Supple. Throat midline. LUNGS: Bilateral air entry, mostly clear. CARDIOVASCULAR: S1, S2. No murmurs, rubs, or gallops. ABDOMEN: Soft, nontender. EXTREMITIES: No clubbing, no cyanosis. There is 2+ edema to the legs. There is redness on both legs and warmth with the right leg being slightly warmer than left leg. INTEGUMENT: No rash. No purpura. The feet have a lot of dry scale, which is excessive. He has some discolored finger nail beds, kind of brown. LABS: Sodium 130, potassium 4.2, bicarbonate 28, BUN 31, and creatinine 2.1. White count 19, hemoglobin 15, platelets 177. IMPRESSION AND PLAN 1. Significant cellulitis. 2. Severe sepsis. 3. Leg edema. 4. Abnormal chest radiography consistent with possible interstitial edema. 5. Elevated hemidiaphragm. 6. Obesity, morbid. 7. Ezzkk-iv-ghkxoll kidney failure. 8. Diabetes. 9. Component of lymphedema. 10. Diabetes, uncontrolled. 11. Dyslipidemia. 12. Depression. 13. Enlarged prostate. 14. Atrial fibrillation. 15. Coronary artery disease. Patient with high risk for recurrences of these infections. We will get an endocrinology consult given the severe lack of control with his last hemoglobin A1c being 11.2%. We will get a podiatry consult as he really needs to get improved foot hygiene. He needs to be kept mildly on the dry side and dyslipidemia needs to be put under control to enhance healing. Repeat white count tomorrow. Repeat evaluations of the cellulitis serially. Continue antibiotics. All medicines have to be adjusted for his kidney condition. Continue CPAP during sleep. Thank you very much, Dr. Jacobson for allowing Dr. Loco and I the chance to participate in the care of Mr. Souza. Please call if there are questions. Job#: [id number] CAMILLA
[2018-06-05] MEDS: ACETAMINOPHEN 325 MG TAB PO PRN (20:25)
[2018-06-05] MEDS: LINEZOLID 600 MG/D5W 300ML 300 ML IV SCH (20:30)
[2018-06-05] MEDS: ATORVASTATIN 40 MG TAB PO SCH (20:30)
--- NOTE | 2018-06-05 20:49 | Consultation ---
DATE OF CONSULTATION: June 05, 2018 ENDOCRINE CONSULTATION PATIENT OF: Dr. Lee. Thank you very much for referring this patient. HISTORY: This is an 78-year-old white male gentleman who is referred to me for evaluation of uncontrolled diabetes mellitus. Patient reportedly is a known diabetic for almost 20 years and takes about 60 units of Lantus at bedtime and about 30 of Humalog with each meal. At this time, the patient came to the hospital with history of fever, chills and his blood sugar was 503 at the time of admission. Anion gap was 19.2. His BUN and creatinine is also significantly elevated. His lactic acid levels are also very high. Patient also has significant history of coronary artery disease, status post CABG, status post pneumonectomy, has obstructive pulmonary disease, hypertension, and is on several medications at home. Patient also has history of hyperlipidemia for which he is on Lipitor 80 mg once daily. He is on metoprolol 25 mg once daily. PHYSICAL EXAMINATION GENERAL: Today, the patient is alert, awake, a little bit apprehensive, morbidly obese. VITALS: His heart rate is around 86, blood pressure is 130/80 mmHg. HEENT: Essentially unremarkable. Thyroid is palpable. Clinically, he is near euthyroid. CHEST: Bilateral vesicular breathing. He has bilateral bronchospasm. CARDIAC: Both 1st and 2nd heart sounds. There is no 3rd or 4th heart sound. Ejection sound grade 2/6. ABDOMEN: Patient has an obese abdomen. EXTREMITIES: He also has cellulitis of the right leg. He has evidence of diabetic sensory neuropathy in both lower extremities. CLINICAL IMPRESSION 1. Diabetes mellitus type 2, uncontrolled with complications. 2. Diabetic ketoacidosis. 3. Lactic acidosis. 4. Chronic renal failure. 5. Sepsis. 6. Cellulitis of the right leg. 7. Coronary artery disease, status post coronary artery bypass graft. 8. Obstructive pulmonary disease, status post pneumonectomy. 9. Hypertension. 10. Chronic renal failure. The plan at this time is to start him on insulin drip. Monitor his blood sugars closely. We will also do a hemoglobin A1c and thyroid function test. Thanks for referring this patient. I will be following this patient with you. Job#: [id number] JARAD
[2018-06-05] MEDS: TERAZOSIN HCL 5 MG CAP PO SCH (21:00)
[2018-06-05] MEDS ORDERED: INSULIN DETEMIR 100 UNIT/ML PEN SQ SCH (21:00)
[2018-06-05] MEDS ORDERED: INSULIN GLARGINE 100 UNITS/ML VIAL SQ SCH (21:00)
[2018-06-05] MEDS ORDERED: INSULIN LISPRO 100 UNIT/1 ML 3ML VIAL SQ SCH (21:00)
[2018-06-06] VITALS (21 sets, daily range): BP systolic 90–144; BP diastolic 37–79
[2018-06-06] MEDS: INSULIN REGULAR, HUMAN 3ML VL 100 UNIT in SODIUM CHLORIDE 0.45% 100 ML 99 ML IV SCH ×4 (00:05→02:03)
[2018-06-06] MEDS: PIPERACILLIN/TAZO 2.25 GM 50 ML IV SCH ×4 (00:10→19:47)
[2018-06-06] MEDS: SODIUM CHLORIDE 0.9% 1000ML 1,000 ML IV SCH ×3 (00:41→21:44)
[2018-06-06] MEDS: ACETAMINOPHEN 325 MG TAB PO PRN (02:30)
[2018-06-06 05:06] LABS: BASOPHILS % 0.2 % (0.0-1.0); EOSINOPHILS # (AUTO) 0.2 (0.0-0.4); HEMATOCRIT 36.6 % (38.2-49.6); HEMOGLOBIN 11.6 g/dL (14.0-18.0); LYMPHOCYTES # (AUTO) 1.4 (1.0-3.2); LYMPHOCYTES % 8.5 % (18.0-39.1); MEAN CORPUSCULAR HEMOGLOBIN 28.6 pg (28-32); MEAN CORPUSCULAR HGB CONC 31.7 g/dL (31-35); MEAN CORPUSCULAR VOLUME 90.4 fL (81-99); MONOCYTES % 5.9 % (4.4-11.3); NEUTROPHILS # (AUTO) 13.7 (2.1-6.9); NEUTROPHILS % 83.7 % (38.7-80.0); PLATELET COUNT 151 x10e3/uL (140-360); RED BLOOD COUNT 4.05 x10e6/uL (4.3-5.7); RED CELL DISTRIBUTION WIDTH 14.3 % (11.7-14.4)
[2018-06-06 05:29] LABS: INR 2.12; PROTHROMBIN TIME 25.4 seconds (11.9-14.5)
[2018-06-06 05:43] LABS: ANION GAP 14.5 mmol/L (8-16); CALCIUM 7.6 mg/dL (8.4-10.2); CREATININE, SERUM 1.77 mg/dL (0.72-1.25); MAGNESIUM 1.7 MG/DL (1.3-2.1); POTASSIUM 3.5 mmol/L (3.5-5.1)
--- NOTE | 2018-06-06 06:03 | Diagnostic Imaging Report ---
CHEST SINGLE (PORTABLE), 06/06/2018 5:00 AM Technique: CHEST SINGLE (PORTABLE) Comparison: 06/05/2018 Clinical history: Congestive heart failure Findings: See Impression Impression: Limited by body habitus and portable technique 1. Stable enlarged cardiomediastinal silhouette poststernotomy. Central vascular congestion. 2. Unchanged elevated left hemidiaphragm with overlying atelectasis and/or pleural fluid. Right costophrenic angle excluded. Signed by: Dr Albania Barakat MD on 06/06/2018 6:00 AM
[2018-06-06] MEDS: INSULIN REGULAR, HUMAN 100 UNIT/1 ML 3ML VIAL SQ SCH ×2 (07:30→11:30)
[2018-06-06] MEDS: INSULIN LISPRO 100 UNIT/1 ML 3ML VIAL SQ SCH ×3 (08:00→17:27)
[2018-06-06] MEDS: LINEZOLID 600 MG/D5W 300ML 300 ML IV SCH ×2 (08:16→21:31)
[2018-06-06] MEDS: METOPROLOL TARTRATE 25 MG TAB PO SCH ×2 (08:16→17:26)
[2018-06-06] MEDS: METOLAZONE 5 MG TAB PO SCH (08:16)
[2018-06-06] MEDS: LACTOBACILLUS ACIDOPHILUS CAPSULE PO SCH ×2 (08:16→17:23)
[2018-06-06] MEDS: ASPIRIN 81 MG CHEW TAB PO SCH (08:16)
[2018-06-06] MEDS: DULOXETINE HCL 20 MG DELAYED RELEASE PO SCH (08:16)
[2018-06-06] MEDS: FUROSEMIDE 40 MG TAB PO SCH (08:16)
[2018-06-06] MEDS: GABAPENTIN 300 MG CAP PO SCH ×2 (08:16→17:23)
[2018-06-06] MEDS: PANTOPRAZOLE SOD 40 MG TABEC PO SCH (08:17)
--- NOTE | 2018-06-06 10:18 | Consultation ---
DATE OF CONSULTATION: June 06, 2018 ADMITTING PHYSICIAN: Geovany Lee MD REASON FOR CONSULTATION: Cellulitis with edema to both lower extremities, with the patient being an insulin-dependent diabetic q94-fjty years. HISTORY OF PRESENT ILLNESS: This pleasant, 78-year-old white male was seen at bedside. He was admitted secondary altered mental status and confusion, feeling better. He is denying any history of fever, chills, nausea, or vomiting. He was admitted with a temperature of 103. PAST MEDICAL HISTORY: Remarkable for anxiety, insulin-dependent diabetes, hypercholesterolemia, hypertension, coronary artery disease. PAST SURGICAL HISTORY: Remarkable for cholecystectomy, quadruple heart bypass 3 years ago. SOCIAL HISTORY: No drinking, smoking or recreational drug use. Lives with his . Has 4 kids. FAMILY HISTORY: Remarkable for diabetes. CURRENT MEDICATIONS: Note list in chart including IV Zosyn. ALLERGIES: VANCOMYCIN, QUINAPRIL. REVIEW OF SYSTEMS CARDIAC: He is denying any palpitations or arrhythmias at this time. RESPIRATORY: Denies any shortness of breath. GASTROINTESTINAL: Denies any diarrhea or constipation. GENITOURINARY: Denies any problems voiding. VITALS: Afebrile, pulse rate 62, respirations 18, blood pressure 114/56, O2 saturation 100%. LABS: Noted. White blood cell count dropping from 19.4 to 16.3, hemoglobin 11.6, hematocrit 36.6 with a platelet count of 151. PODIATRIC PHYSICAL EXAMINATION VASCULATURE: Pedal pulses both the DP and PT are palpable but diminished. CFT to all toes less than 4 seconds. NEUROLOGIC: Loss of protective sensation when utilizing Austin-Tra 5.07 monofilament wire. MUSCULOSKELETAL: Examination shows muscle mass to be asymmetrical. Some swelling noted to both lower extremities. Pitting edema, right worse than left. Muscle strength is 3/5 to 4/5 to all muscle groups. DERMATOLOGIC: No open lesions. Nails are yellow discolored with subungual debris. Forefoot eczema noted to both lower extremities with interdigital cellulitis. ASSESSMENT: Lymphedema, cellulitis, diabetic neuropathy with onychomycosis and dermatophytosis. PLAN: Will start nystatin cream between the digits and to the toenails daily and p.m. Will order some compression stockings, initially 15 to 20 mmHg and gradually increase to 20 to 30. Continue IV antibiotics. Will continue to monitor. Continue offloading. Job#: [id number]
[2018-06-06] MEDS: WARFARIN SOD 2.5 MG TAB PO SCH (19:23)
[2018-06-06] MEDS: TERAZOSIN HCL 5 MG CAP PO SCH (20:44)
[2018-06-06] MEDS: ATORVASTATIN 40 MG TAB PO SCH (20:44)
[2018-06-06] MEDS ORDERED: INSULIN GLARGINE 100 UNITS/ML VIAL SQ SCH (21:00)
--- NOTE | 2018-06-06 23:14 | Progress Note ---
DATE: June 06, 2018 INTERNAL MEDICINE PROGRESS NOTE This is coverage for Dr. Mauri Loco. SUBJECTIVE: Mr. Souza was seen and examined at bedside. His fingersticks went to critical 400 yesterday. He was placed on insulin drip and this improved his sugars to the high 100s. He was converted off insulin drip today. He ate. His legs are still warm but better. Insulin was at 40 units per hour but is now weaning off. Urine output noted as he is voiding. REVIEW OF SYSTEMS: No headaches. No GI bleed. OBJECTIVE VITAL SIGNS: Afebrile. Vital signs noted per the chart record. GENERAL: In no acute distress, alert and calm. HEENT: Normocephalic, atraumatic. NECK: Supple. Throat midline. LUNGS: Bilateral air entry, rare rhonchi. CARDIOVASCULAR: S1 and S2 . No murmurs, rubs, or gallops. ABDOMEN: Soft, nontender. EXTREMITIES: No clubbing, no cyanosis. I feel the 2+ edema. Now with THEODORE stockings on. INTEGUMENT: No rash visible outside the THEODORE stockings. No purpura. LABS: Potassium 3.5, bicarbonate 27, BUN 27, and creatinine 1.8. White count came down to 16,000, hematocrit 37, and platelets 151,000. INR is 2.12 today. Hemoglobin A1c came back at 12.8%. BNP was 64. TSH normal. Chest x-ray was stable, cardiac silhouette with central vascular congestion pattern and left hemidiaphragm elevation continued. IMPRESSIONS 1. Recurrent cellulitis. 2. Severe sepsis, improved. 3. Uncontrolled diabetes. 4. Leg edema. 5. Possible interstitial edema per chest x-ray. 6. Elevated hemidiaphragm. 7. Obesity. 8. Mzwtb-os-xukpmub kidney failure, better. 9. Depression. 10. Enlarged prostate. 11. History of atrial fibrillation. 12. Coronary artery disease. 13. Onychomycosis and dermatophytosis, significant. PLAN: THEODORE stockings and graduate pressure. Offload legs. Continue local care to decrease risk of re-infection. Will check immunoglobulins of the blood to figure out why he has recurrent infection so quickly. Continue diabetes control very aggressively. Continue IV antibiotics. Repeat white count tomorrow. Give nystatin to the feet. Dr. Loco will be back tomorrow. Job#: [id number] CF
[2018-06-07] VITALS (7 sets, daily range): BP systolic 83–157; BP diastolic 46–60
[2018-06-07] MEDS: ACETAMINOPHEN 325 MG TAB PO PRN (00:03)
[2018-06-07] MEDS: PIPERACILLIN/TAZO 2.25 GM 50 ML IV SCH ×2 (01:14→06:00)
[2018-06-07 05:10] LABS: BASOPHILS % 0.3 % (0.0-1.0); EOSINOPHILS # (AUTO) 0.5 (0.0-0.4); EOSINOPHILS % 5.3 % (0.0-6.0); HEMATOCRIT 34.8 % (38.2-49.6); HEMOGLOBIN 11.1 g/dL (14.0-18.0); LYMPHOCYTES # (AUTO) 1.4 (1.0-3.2); LYMPHOCYTES % 15.3 % (18.0-39.1); MEAN CORPUSCULAR HEMOGLOBIN 28.8 pg (28-32); MEAN CORPUSCULAR HGB CONC 31.9 g/dL (31-35); MEAN CORPUSCULAR VOLUME 90.2 fL (81-99); MONOCYTES # (AUTO) 0.8 (0.2-0.8); MONOCYTES % 9.2 % (4.4-11.3); NEUTROPHILS # (AUTO) 6.3 (2.1-6.9); NEUTROPHILS % 69.3 % (38.7-80.0); PLATELET COUNT 127 x10e3/uL (140-360); RED BLOOD COUNT 3.86 x10e6/uL (4.3-5.7); RED CELL DISTRIBUTION WIDTH 14.2 % (11.7-14.4)
[2018-06-07 05:28] LABS: INR 1.99; PROTHROMBIN TIME 24.1 seconds (11.9-14.5)
[2018-06-07 05:40] LABS: ALBUMIN 2.5 g/dL (3.5-5.0); ALBUMIN/GLOBULIN RATIO 0.7 (0.8-2.0); ANION GAP 12.4 mmol/L (8-16); CALCIUM 7.6 mg/dL (8.4-10.2); CREATININE, SERUM 1.8 mg/dL (0.72-1.25); MAGNESIUM 1.7 MG/DL (1.3-2.1); POTASSIUM 3.4 mmol/L (3.5-5.1)
[2018-06-07] MEDS: INSULIN LISPRO 100 UNIT/1 ML 3ML VIAL SQ SCH ×6 (08:00→20:50)
[2018-06-07] MEDS: GABAPENTIN 300 MG CAP PO SCH ×2 (08:44→16:11)
[2018-06-07] MEDS: METOLAZONE 5 MG TAB PO SCH (08:44)
[2018-06-07] MEDS: LACTOBACILLUS ACIDOPHILUS CAPSULE PO SCH ×2 (08:44→16:12)
[2018-06-07] MEDS: FUROSEMIDE 40 MG TAB PO SCH (08:44)
[2018-06-07] MEDS: METOPROLOL TARTRATE 25 MG TAB PO SCH ×2 (08:44→16:11)
[2018-06-07] MEDS: ASPIRIN 81 MG CHEW TAB PO SCH (08:44)
[2018-06-07] MEDS: PANTOPRAZOLE SOD 40 MG TABEC PO SCH (08:44)
[2018-06-07] MEDS: DULOXETINE HCL 20 MG DELAYED RELEASE PO SCH (08:44)
--- NOTE | 2018-06-07 09:37 | Progress Note ---
DATE: June 07, 2018 SUBJECTIVE: Patient seen at bedside. No distress. OBJECTIVE VITALS: Afebrile, pulse rate 89, respirations 16, blood pressure 157/52, O2 saturation 96%. EXTREMITIES: Decreased cellulitis and edema to both lower extremities. Compression dressings on. Has cellulitis and excoriations on multiple nails being yellowed and discolored with subungual debris. LABS: Show white blood cell count dropping to 9.04 and hemoglobin 11.1. ASSESSMENT: Dermatophytosis, cellulitis and eczema with onychomycosis. PLAN: Continue compression dressings. Continue IV antibiotics. Continue topical antifungal cream. Will continue to follow. Patient was instructed on offloading with pillow under calves. Job#: [id number] JESSICA
[2018-06-07] MEDS: SODIUM CHLORIDE 0.9% 1000ML 1,000 ML IV SCH (09:39)
[2018-06-07] MEDS: LINEZOLID 600 MG/D5W 300ML 300 ML IV SCH (10:23)
--- NOTE | 2018-06-07 13:18 | NUR ---
SPOKE TO REGARDING CENTRAL CATHETER PLACEMENT, PER MD CVC PLACEMENT ON HOLD PT HAS 18G STILL INTACT ONLY IV MEDICATIONS BEING GIVEN AT THIS TIME IS INSULIN, WILL CONTINUE TO MONITOR CLOSELY
[2018-06-07] MEDS ORDERED: POTASSIUM CHLORIDE 20 MEQ TAB CR PO ONE (13:30)
--- NOTE | 2018-06-07 14:28 | NUR ---
SPOKE TO , PT TO BE WEANED OFF OF INSULIN DRIP 10UNITS HUMALOG GIVEN NOW, DECREASED TO 2 UNITS WILL DECREASE BY ONE UNIT EVERY HOUR.
[2018-06-07] MEDS ORDERED: DEXTROSE 50% SYRINGE 50 ML IV PRN (14:30)
[2018-06-07] MEDS: WARFARIN SOD 5 MG TAB PO SCH (16:11)
[2018-06-07] MEDS: LINEZOLID 600 MG TAB PO SCH (16:12)
[2018-06-07] MEDS: TERAZOSIN HCL 5 MG CAP PO SCH (20:58)
[2018-06-07] MEDS: ATORVASTATIN 40 MG TAB PO SCH (20:58)
[2018-06-07] MEDS ORDERED: INSULIN GLARGINE 100 UNITS/ML VIAL SQ SCH (21:00)
[2018-06-08] VITALS (13 sets, daily range): BP systolic 111–145; BP diastolic 40–71
[2018-06-08 05:26] LABS: BASOPHILS % 0.3 % (0.0-1.0); EOSINOPHILS # (AUTO) 0.4 (0.0-0.4); EOSINOPHILS % 5.5 % (0.0-6.0); HEMATOCRIT 35.7 % (38.2-49.6); HEMOGLOBIN 11.2 g/dL (14.0-18.0); LYMPHOCYTES # (AUTO) 1.1 (1.0-3.2); LYMPHOCYTES % 14.1 % (18.0-39.1); MEAN CORPUSCULAR HEMOGLOBIN 28.3 pg (28-32); MEAN CORPUSCULAR HGB CONC 31.4 g/dL (31-35); MEAN CORPUSCULAR VOLUME 90.2 fL (81-99); MONOCYTES # (AUTO) 0.6 (0.2-0.8); MONOCYTES % 8.2 % (4.4-11.3); NEUTROPHILS # (AUTO) 5.5 (2.1-6.9); NEUTROPHILS % 71.5 % (38.7-80.0); PLATELET COUNT 136 x10e3/uL (140-360); RED BLOOD COUNT 3.96 x10e6/uL (4.3-5.7); RED CELL DISTRIBUTION WIDTH 14.1 % (11.7-14.4)
[2018-06-08 05:39] LABS: INR 2.03; PROTHROMBIN TIME 24.5 seconds (11.9-14.5)
[2018-06-08 05:48] LABS: ANION GAP 12.7 mmol/L (8-16); CREATININE, SERUM 1.63 mg/dL (0.72-1.25); POTASSIUM 3.7 mmol/L (3.5-5.1)
--- NOTE | 2018-06-08 07:27 | NUR ---
pt resting in bed, no s/o pain or s/s distress. will continue to monitor.
[2018-06-08] MEDS: INSULIN LISPRO 100 UNIT/1 ML 3ML VIAL SQ SCH ×7 (08:01→21:25)
[2018-06-08] MEDS: ASPIRIN 81 MG CHEW TAB PO SCH (08:02)
[2018-06-08] MEDS: DULOXETINE HCL 20 MG DELAYED RELEASE PO SCH (08:02)
[2018-06-08] MEDS: PANTOPRAZOLE SOD 40 MG TABEC PO SCH (08:02)
[2018-06-08] MEDS: FUROSEMIDE 40 MG TAB PO SCH (08:02)
[2018-06-08] MEDS: GABAPENTIN 300 MG CAP PO SCH ×2 (08:03→17:24)
[2018-06-08] MEDS: LINEZOLID 600 MG TAB PO SCH (08:03)
[2018-06-08] MEDS: METOLAZONE 5 MG TAB PO SCH (08:03)
[2018-06-08] MEDS: LACTOBACILLUS ACIDOPHILUS CAPSULE PO SCH ×2 (08:03→17:24)
[2018-06-08] MEDS: METOPROLOL TARTRATE 25 MG TAB PO SCH ×2 (09:25→17:25)
--- NOTE | 2018-06-08 09:41 | Progress Note ---
DATE: June 08, 2018 SUBJECTIVE: Patient seen at bedside, doing better. Denying any history of fever, chills, nausea, or vomiting. OBJECTIVE VITALS: Afebrile. Pulse rate 61, respirations 19, blood pressure 145/40, O2 saturation 98%. LABS: White blood cell count 7.6, hemoglobin 11.2 with a platelet count of 136. There is positive edema noted to both lower extremities, right worse than left. Cellulitis seems to be resolving. Still redness to both lower extremities, right worse than left. ASSESSMENT: Lymphedema, cellulitis with eczema. PLAN: Continue compression dressings/stockings. Continue elevation. Will continue to follow. Job#: [id number]
--- NOTE | 2018-06-08 10:56 | NUR ---
pt amb hallways with PT. stable gait. able to maintain o2 sats without o2. pt receiving shower with assistance to bathroom. linens changed
--- NOTE | 2018-06-08 12:20 | Consultation ---
DATE OF CONSULTATION: June 08, 2018 ATTENDING PHYSICIAN: Dr. Geovany Lee. REASON FOR CONSULTATION: Streptococcus septicemia. Thank you, Dr. Loco and Dr. Lee, for asking me to see this patient. HISTORY OF PRESENT ILLNESS: The patient is an 78-year-old man referred for streptococcus septicemia. He was admitted through the emergency department with severe sepsis from right lower leg cellulitis. He presented to the emergency department on 06/05/2018 with fever to 103 degrees Fahrenheit and altered mental status. He did not have cough, shortness of breath, nausea, vomiting, diarrhea, abdominal pain and dysuria. He was discharged from the hospital on 05/30/2018 with oral clindamycin following admission for right leg cellulitis. In the emergency department, he was noted to have temperature of 102.9 degrees Fahrenheit, pulse rate 118, respiratory rate 24, blood pressure 177/86 and oxygen saturation 92% on room air. Initial laboratory studies showed blood leukocyte count of 19,440 with 89.9% neutrophils, BUN 31, creatinine 2.15, blood glucose 503, and urinalysis was negative for pyuria. Chest x-ray showed stable interstitial edema. The blood culture later grew group B streptococcus. Review of the patient's culture results during the last admission showed that the blood culture on 05/28/2018 was negative. PAST MEDICAL HISTORY: Diabetes mellitus type 2, hypertension, hyperlipidemia, coronary artery disease, congestive heart failure, chronic kidney disease, obstructive sleep apnea and chronic lymphedema of the lower extremities, the right greater than the left, atrial fibrillation and Enterococcus faecalis bacteremia. PAST SURGICAL HISTORY: Bilateral cataract surgery, coronary artery bypass and cholecystectomy. ALLERGIES: VANCOMYCIN, EXENATIDE, QUINAPRIL AND SITAGLIPTIN. MEDICATIONS: The current antibiotic is linezolid 600 mg p.o. b.i.d. The patient received Zosyn earlier. IMMUNIZATION: He received the pneumococcal vaccination in the past. Also, he received the influenza vaccine in April 2018. FAMILY HISTORY: Noncontributory. SOCIAL HISTORY: No alcohol or tobacco use. REVIEW OF SYSTEMS: As per history of present illness. The patient feels better since admission and management. He feels pain when the right pretibial area is pressed. Otherwise he feels okay. There is no fever, chills, cough, shortness of breath, nausea, vomiting, diarrhea, abdominal pain and dysuria. PHYSICAL EXAMINATION VITALS: T-max 98.2, pulse rate 64, respiratory rate 19, blood pressure 139/53, weight 284 pounds. GENERAL: No acute distress. HEENT: Normocephalic. There is no icterus or injection of conjunctivae. There is no ear or nasal discharge. Moist oral mucosa. No pharyngeal erythema or exudate. NECK: Supple. No meningismus. LUNGS: Good air entry bilaterally. HEART: Normal S1 and S2. ABDOMEN: Normal bowel sounds in all quadrants. Soft and nontender. EXTREMITIES: There is mild redness of the right pretibial area with mild tenderness on palpation. There is also minimal induration but no fluctuance. There are chronic changes of the toenails. The dorsalis pedis and posterior tibial pulses are difficult to palpate due to lymphedema of both legs, the right greater than the left. SKIN: As per extremities. 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 There is decreased sensation to monofilament test of the feet. Nonfocal. LABORATORY AND DIAGNOSTICS: WBC 7,650, hemoglobin 11.2, platelet 136,000, neutrophils 71.5, lymphocytes 14.1, monocytes 8.2, eosinophils 5.5, basophils 0.3. BUN 20, creatinine 1.6, blood glucose 260. Blood culture grew Streptococcus agalactiae (group B streptococcus). Urine culture grew streptococcus group C. IMPRESSIONS 1. Sepsis from right leg cellulitis with bacteremia due to group B streptococcus, present on admission. 2. Chronic bilateral lower extremity lymphedema, right greater than left. 3. Chronic kidney disease stage 3. 4. Diabetes mellitus type 2 with peripheral neuropathy, uncontrolled. PLANS 1. Change antibiotic to ampicillin 2 g IV piggyback q.6 hours. Linezolid interacts with duloxetine and group B and there is no reported clinically significant resistance of group B streptococcus to penicillin. 2. Glycemic control. Job#: [id number] RENNY
--- NOTE | 2018-06-08 12:26 | NUR ---
EDUCATED ABOUT IMM, SIGNED, FILED IN CHART, WITH COPY LEFT WITH FAMILY AT BEDSIDE.
[2018-06-08] MEDS: AMPICILLIN SOD 2 GM/NS 100ML 100 ML IV SCH ×4 (13:00→22:11)
--- NOTE | 2018-06-08 14:39 | NUR ---
Nutrition Screen Note RD Recommendation for Physician: -Continue ADA diet as ordered -Pt refused diabetic education on 06/08. Plan of Care: RD following, monitoring for tolerance and adequacy Nutrition reason for involvement: RN consult ADA education Primary Diagnose(s): 1. Sepsis from right leg cellulitis with bacteremia due to group B streptococcus, present on admission. 2. Chronic bilateral lower extremity lymphedema, right greater than left. PMH: Diabetes, CKD, neuropathy, dyslipidemia, depression, anxiety disorder, atrial fibrillation, enlarged prostate, obstructive sleep apnea, coronary artery disease and history of CABG in 2017, left hemidiaphragmatic elevation. Ht: 69in Wt: 284lb BMI: 41.9kg/m2 IBW: 160lb RD Assessment: (06/08/18) Chart reviewed. Labs and meds reviewed. 78yo M, who was admitted for AMS. Pt was discussed during rounds. AMS has resolved. BG running about ~200+, insulin has been ordered. HbA1c at 12.8%. 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 Pt denied chewing/swallowing problems and nausea/vomiting. RN recorded 75 100% meal intake since admission. LBM 06/07. RD offered diabetic education but pt refused. Pt stated I have gone through diabetic study for 13 years and I probably know more than you. Will continue to monitor and follow. Current Diet: ADA diet Malnutrition Evaluation (06/08/18) The patient does not meet criteria for a specified degree of malnutrition at this time. Will re-evaluate at follow-up as appropriate. Diet Education Needs Assessment: Diet education indicated, pt is not interested. Nutrition Care Level: low Signed: Radhika Ho MS, RD, LD
[2018-06-08] MEDS ORDERED: DIATRIZOATE MEGL/DIATRIZOA SOD 30 ML BTL PO ONE (15:25)
--- NOTE | 2018-06-08 15:48 | NUR ---
LATE ENTRY: 06/06/2018 CASE MANAGEMENT INITIAL ASSESSMENT Calibration Specialist to bedside to discuss plan of care with patient/family. CM/SW role and care transitions discussed. Anticipated discharge plan discussed along with duration of care. CM/SW discussed patients right to make decisions in care. CM/SW work hours given. Patient lives: HOME Admit/Transfer: ER Hospital/ER visits since last admit: NONE POA/Emergency contact: NO FAMILY PRESENT; PT CONFUSED Current/Previous Home Health: PT CONFUSED; NO FAMILY PRESENT PCP/Follow-up Care: Current/Previous DME: Other Services: Employment Status: Areas of Concerns: Referral Needs: MAY NEED PLACEMENT Education Needs: IMM/VILLAVICENCIO given and signed (if applicable): PT CONFUSED Goal for discharge: WILL CONTINUE TO FOLLOW PT. CM/SW left business card at the bedside with contact information. Name and number was also written on the patients whiteboard. Patient verbalized understanding of discussion. CM will follow-up with ongoing discharge and transition of care needs.
[2018-06-08] MEDS: WARFARIN SOD 2.5 MG TAB PO SCH (17:24)
--- NOTE | 2018-06-08 18:15 | NUR ---
pt lost iv access, new iv placed. iv infiltrated. unable to access. previously had orders for cvc. lisbet moyer.
--- NOTE | 2018-06-08 19:05 | NUR ---
po abx dc this am dt c/s. iv dose given at lunchtime but was noted to have infiltrated and leaked on bed near end. iv dc from left ac and new iv placed at right wrist. when iv abx admin for 1800 dose, iv infiltrated. no access able to be obtained. ordered for cvc. radiologist called to place line dt lapse in daily iv abx dosages. per radiologist, he would contact dr olson to confirm if line needing placed tonight or able to do in am. report given to oncoming nurse. pt vs stable at this time and aware of pending line placement.
--- NOTE | 2018-06-08 19:45 | NUR ---
Patient went for inserted CVC at this time.
[2018-06-08] MEDS ORDERED: LIDOCAINE HCL 1% LOCAL INJ 20 ML VIAL ONE (19:58)
--- NOTE | 2018-06-08 21:15 | NUR ---
Patient came back from OT, patient sitting on his chair alert/oriented x3 no C/O pain,Patient had right internal jugular triple lumen catheter.Will continue to monitor.
[2018-06-08] MEDS: TERAZOSIN HCL 5 MG CAP PO SCH (21:23)
[2018-06-08] MEDS: ATORVASTATIN 40 MG TAB PO SCH (21:23)
[2018-06-08] MEDS: INSULIN GLARGINE 100 UNITS/ML VIAL SQ SCH (21:25)
--- NOTE | 2018-06-08 22:34 | Diagnostic Imaging Report ---
EXAM: CT Abdomen and Pelvis WITHOUT contrast INDICATION: ABD PAIN, STREP BACTEREMIA COMPARISON: Chest CT 04/27/2018 TECHNIQUE: Abdomen and pelvis were scanned utilizing a multidetector helical scanner from the lung base to the pubic symphysis without administration of IV contrast. Absence of intravenous contrast decreases sensitivity for detection of focal lesions and vascular pathology. Coronal and sagittal reformations were obtained. Routine protocol was performed. IV CONTRAST: None ORAL CONTRAST: Gastrografin COMPLICATIONS: None RADIATION DOSE: Total DLP: 974.7 mGy*cm Estimated effective dose: (DLP x 0.015 x size factor) mSv Dose modulation, iterative reconstruction, and/or weight based adjustment of the mA/kV was utilized to reduce the radiation dose to as low as reasonably achievable. FINDINGS: LINES and TUBES: None. LOWER THORAX: Left hemidiaphragmatic elevation atelectasis with lingular and lower lobe atelectasis. CABG related changes. Three-vessel coronary artery and aortic calcifications. Main pulmonary enlarged measuring 4.2 cm which can be seen with pulmonary hypertension. HEPATOBILIARY: No focal hepatic lesions. No biliary ductal dilation. GALLBLADDER: Absent SPLEEN: No splenomegaly. PANCREAS: No focal masses or ductal dilatation. ADRENALS: No adrenal nodules KIDNEYS/URETERS: Nonspecific bilateral perinephric stranding, stable within the visualized portions of the left kidney on chest CT 04/27/2018. No hydronephrosis. No cystic or solid mass lesions. No stones. GI TRACT: No abnormal distention, wall thickening, or evidence of bowel obstruction. Appendix is normal. PELVIC ORGANS/BLADDER: Unremarkable. LYMPH NODES: No lymphadenopathy. VESSELS: There is moderate atherosclerotic disease in the aorta and major arterial branches. No abdominal aortic aneurysm. PERITONEUM / RETROPERITONEUM: No free air or fluid. BONES: There are degenerative changes in the lumbar spine. Median sternotomy wires. SOFT TISSUES: Unremarkable. IMPRESSION: No acute abnormalities. Signed by: DR. Memo Arrieta MD on 06/08/2018 10:30 PM
[2018-06-09] VITALS (8 sets, daily range): BP systolic 123–151; BP diastolic 27–65
--- NOTE | 2018-06-09 00:44 | NUR ---
Report received from Marifer. Patient alert resting comfortably on his bed. Denied pain and no SOB. No respiratory distress noted. Bed in lower position,locked.Call ortega within reach.patient instructed to call for help as needed. Will continue to monitor.
[2018-06-09] MEDS: AMPICILLIN SOD 2 GM/NS 100ML 100 ML IV SCH ×4 (03:50→22:12)
[2018-06-09] MEDS ORDERED: AMPICILLIN SOD 2 GM/NS 100ML 100 ML IV SCH ×3 (06:00→12:00)
--- NOTE | 2018-06-09 07:03 | NUR ---
Report given to oncoming ANDREW Patterson.
--- NOTE | 2018-06-09 07:11 | Diagnostic Imaging Report ---
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 Savage Pre-operative diagnosis: Cellulitis, poor IV access Post-operative diagnosis: Cellulitis, poor IV access Conscious Sedation: None Additional Medications: Lidocaine 1% for local anesthesia Fluoroscopy time: 0.2 minutes Dose-area Product: 5.31 Gycm2. Frontal Air Kerma: 19.7 mGy Contrast used: None Estimated blood loss: Minimal Blood products administered: None Specimens: None Implants: 7 Afghan 16 cm triple-lumen central venous catheter DISCUSSION: Informed consent was obtained and documented in the medical record after discussion of risks and benefits. The patient was placed in the supine position on the hospital bed. Preliminary sonographic evaluation confirmed patency of the right internal jugular vein, evidenced by compressibility. The right neck was prepped and draped in the standard sterile fashion. 1% lidocaine was infiltrated into the skin and subcutaneous tissues for local anesthesia. Then under continuous sonographic guidance, an 18-gauge singlewall needle was used to access the right internal jugular vein. A permanent sonographic image was stored in the medical record. A 0.0 3 5-in. wire was advanced centrally into the IVC under fluoroscopic guidance. The needle was removed over the wire and the tract was dilated. Then a 7 Afghan, 16 cm triple-lumen central venous catheter was advanced over the wire to full depth. The wire was removed, and the catheter tip was positioned at the low superior vena cava. Each lumen showed adequate bidirectional flow and was flushed with sterile saline. The catheter was secured to the skin with monofilament nylon suture and a sterile dressing was applied. The patient tolerated the procedure well without immediate complication. FINDINGS: Patent right internal jugular vein IMPRESSION: Successful placement of a 7 Afghan 16 cm triple-lumen central venous catheter by a right internal jugular approach under sonographic and fluoroscopic guidance. Signed by: Dr. Bertram Savage M.D. on 06/09/2018 7:08 AM
[2018-06-09 07:12] LABS: BASOPHILS % 0.4 % (0.0-1.0); EOSINOPHILS # (AUTO) 0.4 (0.0-0.4); EOSINOPHILS % 5.4 % (0.0-6.0); HEMOGLOBIN 11.6 g/dL (14.0-18.0); LYMPHOCYTES # (AUTO) 1.3 (1.0-3.2); LYMPHOCYTES % 15.9 % (18.0-39.1); MEAN CORPUSCULAR HEMOGLOBIN 28.6 pg (28-32); MEAN CORPUSCULAR HGB CONC 32.2 g/dL (31-35); MEAN CORPUSCULAR VOLUME 88.9 fL (81-99); MONOCYTES # (AUTO) 0.6 (0.2-0.8); MONOCYTES % 7.6 % (4.4-11.3); NEUTROPHILS # (AUTO) 5.5 (2.1-6.9); NEUTROPHILS % 70.3 % (38.7-80.0); PLATELET COUNT 147 x10e3/uL (140-360); RED BLOOD COUNT 4.05 x10e6/uL (4.3-5.7)
[2018-06-09 07:29] LABS: ANION GAP 13.8 mmol/L (8-16); CALCIUM 8.1 mg/dL (8.4-10.2); CREATININE, SERUM 1.6 mg/dL (0.72-1.25); POTASSIUM 3.8 mmol/L (3.5-5.1)
[2018-06-09] MEDS: PANTOPRAZOLE SOD 40 MG TABEC PO SCH (07:33)
[2018-06-09] MEDS: INSULIN LISPRO 100 UNIT/1 ML 3ML VIAL SQ SCH ×6 (08:20→21:30)
[2018-06-09] MEDS: ASPIRIN 81 MG CHEW TAB PO SCH (08:23)
[2018-06-09] MEDS: GABAPENTIN 300 MG CAP PO SCH ×2 (08:23→17:30)
[2018-06-09] MEDS: DULOXETINE HCL 20 MG DELAYED RELEASE PO SCH (08:23)
[2018-06-09] MEDS: LACTOBACILLUS ACIDOPHILUS CAPSULE PO SCH ×2 (08:23→17:30)
[2018-06-09] MEDS: METOLAZONE 5 MG TAB PO SCH (08:23)
[2018-06-09] MEDS: FUROSEMIDE 40 MG TAB PO SCH (08:23)
[2018-06-09] MEDS: METOPROLOL TARTRATE 25 MG TAB PO SCH ×2 (08:27→17:30)
[2018-06-09] MEDS ORDERED: AMPICILLIN SOD 2 GM/NS 100ML 2 G in AMPICILLIN SOD 2 GM/NS 100ML 100 ML IV SCH (09:00)
--- NOTE | 2018-06-09 09:01 | Progress Note ---
DATE: June 09, 2018 SUBJECTIVE: Patient seen at bedside, ready to get an echocardiogram. Doing well. Denies any history of fever, chills, nausea, or vomiting. OBJECTIVE: VITAL SIGNS: Afebrile. Vital signs stable. EXTREMITIES: Both lower extremities looking better. Decreased cellulitis. There is still some edema to both lower extremities with the right being worse than left. ASSESSMENT: Cellulitis, resolving with lymphedema. PLAN: Will continue compression stockings. White blood cell count dropping to 7.8. Continue elevation. Job#: [id number]
--- NOTE | 2018-06-09 15:02 | NUR ---
Discontinuing skilled PT services since patient is Mod I in functional mobility with AD. Thank you
--- NOTE | 2018-06-09 15:04 | NUR ---
Discontinuing skilled PT services since patient is Mod I in functional mobility with AD. Thank you. Addendum: 06/09/18 at 1505 by Patel montgomery PT Amended: Links added.
[2018-06-09 15:13] LABS: INR 2.17; PROTHROMBIN TIME 25.8 seconds (11.9-14.5)
[2018-06-09] MEDS ORDERED: INSULIN LISPRO 100 UNIT/1 ML 3ML VIAL SQ SCH (16:30)
[2018-06-09] MEDS: WARFARIN SOD 5 MG TAB PO SCH (17:30)
--- NOTE | 2018-06-09 17:33 | NUR ---
pt BS was 76, insulin refused. dr vega notified, updated dosage of insulin.
--- NOTE | 2018-06-09 20:44 | NUR ---
Arrived @ the unit from [facility] in a wheel chair in stable condition.
--- NOTE | 2018-06-09 20:49 | NUR ---
Report given to ANDREW Krause. Patient transfer to [facility] 1(113) by wheelchair at 2039 with stable condition
[2018-06-09] MEDS: TERAZOSIN HCL 5 MG CAP PO SCH (21:30)
[2018-06-09] MEDS: INSULIN GLARGINE 100 UNITS/ML VIAL SQ SCH (21:40)
[2018-06-09] MEDS: ATORVASTATIN 40 MG TAB PO SCH (21:45)
--- NOTE | 2018-06-09 22:00 | NUR ---
NO PAIN VOICED.ASSESSMENT DONE.NO RESP.DISTRESS.BILATERAL EXTREMITY EDEMA NOTED.THEODORE HOSE IS IN PLACE.ELEVATED THE LEG .TELE #13 PLACED.BED ALARM ON.VOIDED.BED LOCKED AND IN LOWEST POSITION.PHONE AND CALL LIGHT WITHIN REACH.INSTRUCTED TO CALL FOR ASSISTANCE NEEDED.
[2018-06-10] VITALS (8 sets, daily range): BP systolic 118–188; BP diastolic 53–74
--- NOTE | 2018-06-10 03:00 | NUR ---
Resting in the bed.central line dressing changed.stable condition.
[2018-06-10] MEDS: AMPICILLIN SOD 2 GM/NS 100ML 100 ML IV SCH ×4 (04:00→21:41)
[2018-06-10 05:59] LABS: BASOPHILS % 0.6 % (0.0-1.0); EOSINOPHILS # (AUTO) 0.3 (0.0-0.4); EOSINOPHILS % 5.1 % (0.0-6.0); HEMATOCRIT 35.8 % (38.2-49.6); HEMOGLOBIN 11.5 g/dL (14.0-18.0); LYMPHOCYTES # (AUTO) 1.4 (1.0-3.2); LYMPHOCYTES % 20.4 % (18.0-39.1); MEAN CORPUSCULAR HEMOGLOBIN 28.8 pg (28-32); MEAN CORPUSCULAR HGB CONC 32.1 g/dL (31-35); MEAN CORPUSCULAR VOLUME 89.5 fL (81-99); MONOCYTES # (AUTO) 0.6 (0.2-0.8); MONOCYTES % 8.5 % (4.4-11.3); NEUTROPHILS # (AUTO) 4.4 (2.1-6.9); NEUTROPHILS % 65.1 % (38.7-80.0); PLATELET COUNT 149 x10e3/uL (140-360); RED CELL DISTRIBUTION WIDTH 13.9 % (11.7-14.4)
--- NOTE | 2018-06-10 06:22 | NUR ---
Pt is on npo for ASHUTOSH. did not sign the consent.pt stated that "want to talk to the doctor before signing the consent."notified to . said that he will talk to the pt later and keep the pt npo.
[2018-06-10 06:30] LABS: ANION GAP 16.7 mmol/L (8-16); CALCIUM 8.1 mg/dL (8.4-10.2); CREATININE, SERUM 1.67 mg/dL (0.72-1.25); POTASSIUM 3.7 mmol/L (3.5-5.1)
--- NOTE | 2018-06-10 06:50 | NUR ---
REPORT GIVEN TO THE ONCOMING RN.WALKING ROUNDS DONE.STABLE CONDITION.
[2018-06-10] MEDS: INSULIN LISPRO 100 UNIT/1 ML 3ML VIAL SQ SCH ×7 (07:30→21:43)
[2018-06-10 08:27] LABS: INR 2.16; PROTHROMBIN TIME 25.7 seconds (11.9-14.5)
--- NOTE | 2018-06-10 09:25 | Consultation ---
DATE OF CONSULTATION: June 10, 2018 CARDIAC CONSULTATION REASON FOR CONSULTATION: Cardiac evaluation for performing ASHUTOSH. HISTORY: This is an 78-year-old gentleman who was admitted to this institution on June 05, 2018, with altered mental status. The patient was coming back and forced to this institution with cellulitis. He was recently at this institution where he had antibiotics. He did well. He went to see his PCP for evaluation. His antibiotics were stopped. Patient a few days after he came to the emergency room, his temperature was 103, altered mental status, tachycardia, septic. He was started on IV antibiotics. His white blood cell count was at 19,000. Then his mentation improved. He is better. His redness of his left lower extremity is less, as well as the right lower extremity. Because of blood culture being positive for group B strep, ID and medicine recommend ASHUTOSH for evaluation and duration of antibiotic treatment. Cardiac consultation is obtained. Cardiac swan, the patient does not have coronary artery disease. He had coronary artery bypass surgery by Dr. Virk almost 3 years ago, probably in 2016. He does have a history of chronic elevated left hemidiaphragm since his surgery. He is diabetic with end-organ damage, including chronic renal insufficiency, neuropathy. The patient is having chronic swelling of the lower extremities and repeated admission with cellulitis to this institution. He is followed in [facility] clinic. Cardiac swan, the patient's activities are very limited. He does have chronic swelling of the lower extremities, easy fatigability and shortness of breath on exertion. He is debilitated in general by lack of movement and activity. SOCIAL HISTORY: He is . 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 He is a nonsmoker. Not an alcohol drinker. CURRENT MEDICATIONS 1. Ampicillin. 2. Terazosin. 3. Insulin sliding scale. 4. Lasix 40 mg a day. 5. Zaroxolyn 5 mg a day. 6. Warfarin 5 mg daily. 7. Insulin 48 units at bedtime. 8. Atorvastatin 80 mg a day. 9. Aspirin 81 mg a day. 10. Metoprolol 25 mg twice a day. 11. Warfarin. 12. Gabapentin 300 mg twice a day. 13. Protonix 40 mg a day. ALLERGIES: VANCOMYCIN, QUINIPRIL AND SITAGLIPTIN. REVIEW OF SYSTEMS GENERAL: Patient currently is alert and awake. He had fever, chills and altered mental status on admission. HEENT: Decreased hearing. No double vision. ENDOCRINE: Patient is diabetic of many years duration with severe end-organ damage. PULMONARY: Easy fatigability, shortness of breath on exertion. CARDIAC: As per acute illness. Basically, shortness of breath on exertion, leg swelling and some orthopnea and paroxysmal nocturnal dyspnea. No syncope or presyncope. No chest pain. GI: No hematemesis. No melena. : Increased frequency of urination. SKIN: Chronic cellulitis and infection of the lower extremity. NEUROLOGICAL: No focal deficit. Altered mental status on admission and was clear. MUSCULOSKELETAL: Back pain, knee pain, abnormal gait. PHYSICAL EXAMINATION VITALS: Height of 5 feet 9 inches, weight is 184 pounds, blood pressure 140/60, heart rate of 60, respiratory rate of 18. HEENT: Pupils are reactive. NECK: No elevation of jugular venous pulsation. CHEST: Decreased air entry. Few crackles. HEART: No elevation of jugular venous pulsation. PMI is diffuse. Distant heart sounds. No gallops. ABDOMEN: Soft. No organomegaly. EXTREMITIES: Lower extremities with THEODORE hoses above knee in place. NEUROLOGICAL: Awake, alert and oriented. No motor deficit, but generalized weakness. LAB DATA: Sodium of 139, potassium 3.7, BUN 23, creatinine of 1.7. White blood cell count of 6.7, hemoglobin of 31.5 and hematocrit 36%. INR of 2.1. EKG is normal sinus rhythm with right bundle branch block. Diffuse ST-T segment changes. IMPRESSION AND PLAN 1. Admission with sepsis and septicemia, group B strep in blood. 2. Chronic cellulitis and repeated infection of the lower extremities with venous insufficiency. 3. Status post coronary artery bypass surgery. 4. Elevated left hemidiaphragm. 5. Obesity. 6. Chronic renal insufficiency. 7. Diabetes mellitus with severe end-organ damage, including peripheral neuropathy and chronic renal insufficiency. 8. Atrial arrhythmia and atrial fibrillation. 9. Hyperlipidemia. 10. Debility. 11. Prostate problems. The patient is on appropriate treatment for the time being. He is anticoagulated. He is on beta serafin. He is on diuretics. He is on antibiotics. I discussed the indications for ASHUTOSH with the patient and his by phone. Explained to them it is recommended by ID for appropriate duration of treatment and management. Patient and his refused to have ASHUTOSH at this time point. Will reschedule the patient for Wednesday just in case if he changes his mind after discussing with ID and the other physician. Will continue with the current treatment. Job#: [id number] JESSICA
[2018-06-10] MEDS: PANTOPRAZOLE SOD 40 MG TABEC PO SCH (10:28)
[2018-06-10] MEDS: DULOXETINE HCL 20 MG DELAYED RELEASE PO SCH (10:28)
[2018-06-10] MEDS: ASPIRIN 81 MG CHEW TAB PO SCH (10:28)
[2018-06-10] MEDS: FUROSEMIDE 40 MG TAB PO SCH (10:28)
[2018-06-10] MEDS: GABAPENTIN 300 MG CAP PO SCH ×2 (10:29→18:02)
[2018-06-10] MEDS: LACTOBACILLUS ACIDOPHILUS CAPSULE PO SCH ×2 (10:29→18:09)
[2018-06-10] MEDS: METOPROLOL TARTRATE 25 MG TAB PO SCH ×2 (10:29→18:03)
--- NOTE | 2018-06-10 10:29 | NUR ---
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
[2018-06-10] MEDS: METOLAZONE 5 MG TAB PO SCH (10:30)
[2018-06-10] MEDS ORDERED: LACTULOSE SYRUP 20 GM/30 ML UDC PO ONE (12:00)
--- NOTE | 2018-06-10 12:36 | NUR ---
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 CM/SW role and care transitions discussed. Anticipated discharge plan discussed along with duration of care. CM/SW discussed patients right to make decisions in care. CM/SW work hours given. Pt currently alert and oriented. Patient lives: with Herb Admit/Transfer: thru ED Hospital/ER visits since last admit: Last admitted to this facility on 05/28/18 and dc'd on 05/30/18 POA/Emergency contact: Herb Alexandre [phone] Current/Previous Home Health: none currently; stated he had home health previously but does not remember the name PCP/Follow-up Care: Dr. Dowd with [facility] - advised pt to follow up with MD within 7 days of discharge Current/Previous DME: walker, CPAP, home oxygen - uses as needed Medications (referring to index hospitalization or the first time you were in the hospital) a. Were changes made in your medications when you were in the hospital on May 28-2018? yes; discharged home on oral antibiotics b. Did you understand the changes? yes c. Were you able to obtain your new medications right away? yes d. Were you able to take your medications like the doctor wanted you to? yes e. Did the hospital give you an accurate, easy to understand list of medications when you left? yes Scale of 1-10 how comfortable does patient feel with disease management in outpatient settin Other Services: none Employment Status: retired Areas of Concerns: cellulitis Referral Needs: none at this time Education Needs: cellulitis, medical management IMM/VILLAVICENCIO given and signed (if applicable): IMM was given this morning. Goal for discharge: home CM/SW left business card at the bedside with contact information. Name and number was also written on the patients whiteboard. Patient verbalized understanding of discussion. CM will follow-up with ongoing discharge and transition of care needs. CM spoke with Dr. Loco regarding discharge plan. He states plan is to finish antibiotics and dc on Wednesday.
[2018-06-10] MEDS: WARFARIN SOD 2.5 MG TAB PO SCH (18:06)
[2018-06-10] MEDS ORDERED: PROPOFOL IV EMULSION 10 MG/ML 20 ML VIAL ONE (18:20)
[2018-06-10] MEDS ORDERED: LIDOCAINE HCL 2% LOCAL INJ 5 ML SDV VIAL INJ ONE (18:20)
--- NOTE | 2018-06-10 19:10 | NUR ---
REPORT RECEIVED FROM OFF GOING NURSE, PT RESTING RECLINER AT BEDSIDE, ALERT AND ORIENTED, NO DISTRESS NOTED, DENIES NEEDS, TELEMETRY NOTED, CALL LIGHT IN REACH, INSTRUCTED TO CALL WITH NEEDS
[2018-06-10] MEDS: TERAZOSIN HCL 5 MG CAP PO SCH (20:44)
[2018-06-10] MEDS: ATORVASTATIN 40 MG TAB PO SCH (20:49)
[2018-06-10] MEDS ORDERED: INSULIN GLARGINE 100 UNITS/ML VIAL SQ SCH (21:00)
[2018-06-11] VITALS (7 sets, daily range): BP systolic 132–151; BP diastolic 58–84
[2018-06-11] MEDS: AMPICILLIN SOD 2 GM/NS 100ML 100 ML IV SCH ×4 (04:00→22:00)
--- NOTE | 2018-06-11 05:56 | NUR ---
PT RESTING IN BED ALERT AND ORIENTED, NO DISTRESS NOTED, DENIES NEEDS, TELEMETRY NOTED, CALL LIGHT IN REACH, INSTRUCTED TO CALL WITH NEEDS
[2018-06-11 06:39] LABS: BASOPHILS % 0.4 % (0.0-1.0); EOSINOPHILS # (AUTO) 0.4 (0.0-0.4); EOSINOPHILS % 4.7 % (0.0-6.0); HEMATOCRIT 37.5 % (38.2-49.6); HEMOGLOBIN 12.3 g/dL (14.0-18.0); LYMPHOCYTES # (AUTO) 1.7 (1.0-3.2); MEAN CORPUSCULAR HEMOGLOBIN 28.7 pg (28-32); MEAN CORPUSCULAR HGB CONC 32.8 g/dL (31-35); MEAN CORPUSCULAR VOLUME 87.6 fL (81-99); MONOCYTES # (AUTO) 0.7 (0.2-0.8); MONOCYTES % 8.2 % (4.4-11.3); NEUTROPHILS # (AUTO) 5.6 (2.1-6.9); NEUTROPHILS % 66.1 % (38.7-80.0); PLATELET COUNT 168 x10e3/uL (140-360); RED BLOOD COUNT 4.28 x10e6/uL (4.3-5.7)
[2018-06-11 06:43] LABS: INR 2.19
[2018-06-11 07:01] LABS: ANION GAP 15.6 mmol/L (8-16); CALCIUM 8.5 mg/dL (8.4-10.2); CREATININE, SERUM 1.51 mg/dL (0.72-1.25); POTASSIUM 3.6 mmol/L (3.5-5.1)
[2018-06-11] MEDS: INSULIN LISPRO 100 UNIT/1 ML 3ML VIAL SQ SCH ×7 (09:38→21:00)
[2018-06-11] MEDS: PANTOPRAZOLE SOD 40 MG TABEC PO SCH (09:39)
[2018-06-11] MEDS: DULOXETINE HCL 20 MG DELAYED RELEASE PO SCH (09:40)
[2018-06-11] MEDS: ASPIRIN 81 MG CHEW TAB PO SCH (09:40)
[2018-06-11] MEDS: FUROSEMIDE 40 MG TAB PO SCH (09:41)
[2018-06-11] MEDS: METOPROLOL TARTRATE 25 MG TAB PO SCH ×2 (09:42→17:19)
[2018-06-11] MEDS: LACTOBACILLUS ACIDOPHILUS CAPSULE PO SCH ×2 (09:42→17:17)
[2018-06-11] MEDS: METOLAZONE 5 MG TAB PO SCH (09:43)
[2018-06-11] MEDS: GABAPENTIN 300 MG CAP PO SCH ×2 (09:43→17:16)
--- NOTE | 2018-06-11 13:39 | Progress Note ---
DATE: I am filling in for Dr. Loco today. SUBJECTIVE: Patient does not have fevers. He still complains of some swelling in his legs. He did not complain of dyspnea or cough. PHYSICAL EXAMINATION VITAL SIGNS: Blood pressure is 145/65 and the saturation is 97% on 3 liters. The pulse is 60. HEENT: Shows no facial swelling or erythema. The nasal mucosa is normal. The oropharynx is normal. LYMPHATIC: Shows no submandibular, cervical, or supraclavicular adenopathy. NECK: Shows no JVD or thyromegaly. There is no nuchal rigidity. CARDIAC: Regular rate and rhythm with a normal S1 and S2. There are no murmurs or rubs. LUNGS: Auscultation of lungs reveals clear breath sounds bilaterally. There is no wheezing. ABDOMEN: Soft and nontender. IMPRESSION 1. Streptococcus bacteremia. 2. Cellulitis. 3. Diabetes. 4. Atrial fibrillation. PLAN 1. Patient will continue on IV antibiotics. 2. Await transesophageal echocardiogram on Wednesday. 3. Continue to monitor electrolytes and renal function. 4. Continue to monitor blood sugars. Job#: [id number]
[2018-06-11] MEDS ORDERED: NEOMYCIN/POLYMYXIN/BACITRACIN 15 GM TUBE TOP SCH (17:00)
[2018-06-11] MEDS: NEOMYCIN/POLYMYXIN/BACITRACIN 15 GM TUBE TOP SCH (17:16)
--- NOTE | 2018-06-11 19:10 | NUR ---
REPORT RECEIVED FROM OFF GOING NURSE, PT SITTING UP AT BEDSIDE, NO DISTRESS NOTED, TELEMETRY NOTED, CALL LIGHT IN REACH, INSTRUCTED TO CALL WITH NEEDS
[2018-06-11] MEDS: ATORVASTATIN 40 MG TAB PO SCH (21:00)
[2018-06-11] MEDS: TERAZOSIN HCL 5 MG CAP PO SCH (21:00)
[2018-06-11] MEDS: INSULIN GLARGINE 100 UNITS/ML VIAL SQ SCH (21:00)
[2018-06-12] VITALS (7 sets, daily range): BP systolic 98–180; BP diastolic 49–84
[2018-06-12] MEDS: AMPICILLIN SOD 2 GM/NS 100ML 100 ML IV SCH ×4 (03:20→21:57)
--- NOTE | 2018-06-12 04:50 | NUR ---
PT RESTING IN BED ALERT AND ORIENTED, NO DISTRESS NOTED, DENIES NEEDS, TELEMETRY NOTED, CALL LIGHT IN REACH, INSTRUCED TO CALL WITH NEEDS
[2018-06-12] MEDS: INSULIN LISPRO 100 UNIT/1 ML 3ML VIAL SQ SCH ×7 (09:07→20:31)
[2018-06-12] MEDS: PANTOPRAZOLE SOD 40 MG TABEC PO SCH (09:08)
[2018-06-12] MEDS: ASPIRIN 81 MG CHEW TAB PO SCH (09:09)
[2018-06-12] MEDS: FUROSEMIDE 40 MG TAB PO SCH (09:10)
[2018-06-12] MEDS: DULOXETINE HCL 20 MG DELAYED RELEASE PO SCH (09:10)
[2018-06-12] MEDS: LACTOBACILLUS ACIDOPHILUS CAPSULE PO SCH ×2 (09:11→16:59)
[2018-06-12] MEDS: METOPROLOL TARTRATE 25 MG TAB PO SCH ×2 (09:11→17:00)
[2018-06-12] MEDS: METOLAZONE 5 MG TAB PO SCH (09:11)
[2018-06-12] MEDS: GABAPENTIN 300 MG CAP PO SCH ×2 (09:11→16:59)
[2018-06-12] MEDS: NEOMYCIN/POLYMYXIN/BACITRACIN 15 GM TUBE TOP SCH ×2 (09:12→16:59)
--- NOTE | 2018-06-12 10:39 | Progress Note ---
DATE: SUBJECTIVE: The patient has no fevers. He is not complaining of shortness of breath or cough. He has some chronic leg swelling. PHYSICAL EXAMINATION: VITAL SIGNS: The patient is afebrile. The blood pressure is 180/73 and saturation is 97% on 3 liters. The pulse is 64. HEENT: Shows no facial swelling or erythema. The nasal mucosa is normal. The oropharynx is normal. LYMPHATIC: Shows no submandibular, cervical, or supraclavicular adenopathy. CARDIAC: Regular rate and rhythm with a normal S1 and S2. There are no murmurs or rubs. LUNGS: Auscultation of lungs reveals clear breath sounds bilaterally. There is no wheezing. ABDOMEN: Soft and nontender. There is no rebound or guarding. EXTREMITIES: Show no calf tenderness. The patient does have 2+ leg edema bilaterally. IMPRESSION 1. Cellulitis with Streptococcus bacteremia. 2. Diabetes. 3. Atrial fibrillation. PLAN 1. Continue antibiotics. 2. Await transesophageal echocardiogram tomorrow. 3. Continue to monitor blood sugars. Job#: [id number] NICHOLAS
[2018-06-12] MEDS: TERAZOSIN HCL 5 MG CAP PO SCH (13:39)
--- NOTE | 2018-06-12 19:47 | NUR ---
received report from day nurse. patient is resting comfortably in bed. bed is in lowest position and call ortega is within reach. will continue to monitor patient.
[2018-06-12] MEDS: INSULIN GLARGINE 100 UNITS/ML VIAL SQ SCH (21:00)
[2018-06-12] MEDS: ATORVASTATIN 40 MG TAB PO SCH (21:57)
[2018-06-13 00:34] VITALS: BP 172/72
[2018-06-13 04:54] VITALS: BP 141/64
[2018-06-13] MEDS ORDERED: SODIUM CHLORIDE 0.9% 1000ML 1,000 ML IV SCH (05:00)
[2018-06-13 05:14] LABS: BASOPHILS % 0.5 % (0.0-1.0); EOSINOPHILS # (AUTO) 0.5 (0.0-0.4); EOSINOPHILS % 5.4 % (0.0-6.0); HEMATOCRIT 35.9 % (38.2-49.6); HEMOGLOBIN 11.9 g/dL (14.0-18.0); LYMPHOCYTES # (AUTO) 1.8 (1.0-3.2); LYMPHOCYTES % 20.7 % (18.0-39.1); MEAN CORPUSCULAR HGB CONC 33.1 g/dL (31-35); MEAN CORPUSCULAR VOLUME 87.6 fL (81-99); MONOCYTES # (AUTO) 0.8 (0.2-0.8); MONOCYTES % 9.4 % (4.4-11.3); NEUTROPHILS # (AUTO) 5.5 (2.1-6.9); NEUTROPHILS % 63.7 % (38.7-80.0); PLATELET COUNT 169 x10e3/uL (140-360); RED CELL DISTRIBUTION WIDTH 13.9 % (11.7-14.4)
[2018-06-13 05:35] LABS: INR 1.48; PROTHROMBIN TIME 19.2 seconds (11.9-14.5)
[2018-06-13 05:45] LABS: ALBUMIN 2.9 g/dL (3.5-5.0); ALBUMIN/GLOBULIN RATIO 0.9 (0.8-2.0); ANION GAP 16.4 mmol/L (8-16); CALCIUM 8.2 mg/dL (8.4-10.2); CREATININE, SERUM 1.63 mg/dL (0.72-1.25); POTASSIUM 3.4 mmol/L (3.5-5.1)
[2018-06-13] MEDS: AMPICILLIN SOD 2 GM/NS 100ML 100 ML IV SCH ×2 (06:11→09:04)
--- NOTE | 2018-06-13 06:56 | NUR ---
report given to day nurse. patient is resting in bed. bed is in lowest position and call ortega is within reach.
--- NOTE | 2018-06-13 07:22 | NUR ---
Rcvd patient in report this am. Patient is asleep in bed at this time. Patient is NPO at this time for procedure today
[2018-06-13] MEDS: PANTOPRAZOLE SOD 40 MG TABEC PO SCH (07:30)
[2018-06-13] MEDS: INSULIN LISPRO 100 UNIT/1 ML 3ML VIAL SQ SCH ×4 (08:14→12:37)
[2018-06-13 08:18] VITALS: BP 177/72
[2018-06-13] MEDS ORDERED: HYDRALAZINE HCL 20 MG/ML VIAL IV PRN (09:00)
[2018-06-13] MEDS: ASPIRIN 81 MG CHEW TAB PO SCH (09:00)
[2018-06-13] MEDS: LACTOBACILLUS ACIDOPHILUS CAPSULE PO SCH (09:00)
[2018-06-13] MEDS: GABAPENTIN 300 MG CAP PO SCH (09:00)
[2018-06-13] MEDS: NEOMYCIN/POLYMYXIN/BACITRACIN 15 GM TUBE TOP SCH (09:14)
[2018-06-13] MEDS ORDERED: SODIUM CHLORIDE 0.9% 1000ML 1,000 ML ONE (10:16)
[2018-06-13] MEDS ORDERED: BENZOCAINE 20% SPR 60 ML CAN ONE (10:16)
[2018-06-13 10:18] VITALS: BP 148/70
--- NOTE | 2018-06-13 10:26 | NUR ---
Patient went to clinical lab clerk at this time for procedure
[2018-06-13 10:51] VITALS: BP 148/70
--- NOTE | 2018-06-13 11:30 | NUR ---
Patient returned from labeling strategist at this time. Patient is AAOx3. Sitting on edge of bed. no s/s of distress noted
[2018-06-13 12:33] VITALS: BP 129/60
[2018-06-13] MEDS: DULOXETINE HCL 20 MG DELAYED RELEASE PO SCH (12:35)
[2018-06-13] MEDS: METOLAZONE 5 MG TAB PO SCH (12:36)
[2018-06-13] MEDS: FUROSEMIDE 40 MG TAB PO SCH (12:36)
[2018-06-13] MEDS: METOPROLOL TARTRATE 25 MG TAB PO SCH (12:36)
[2018-06-13] MEDS: TERAZOSIN HCL 5 MG CAP PO SCH (12:36)
[2018-06-13] MEDS ORDERED: ZYVOX600 MG PO (13:01)
--- NOTE | 2018-06-13 13:14 | Discharge Summary ---
PRIMARY CARE DOCTOR: Dr. Aleksey Panda with [facility]. FINAL DIAGNOSIS: Group B Streptococcus septicemia present on admission likely due to recurrent lower extremity cellulitis complicated by metabolic encephalopathy. SECONDARY DIAGNOSES 1. Morbid obesity. 2. Peripheral vascular disease. 3. Stage 3 chronic kidney disease due to diabetes. 4. Paroxysmal atrial fibrillation, on Coumadin. CONSULTANTS 1. Dr. Jerome, cardiology. 2. Dr. Petros Patton, director critical care. 3. Dr. Nelson, infectious disease. 4. Dr. Lindsey, endocrine. PROCEDURES/STUDIES PERFORMED 1. Transesophageal echocardiogram which did not show any vegetation. 2. Abdominal computerized tomography was unremarkable. 3. Central line placement due to poor access. HISTORY: Per H and P. HOSPITAL COURSE: At this time, the patient's legs again seem more swollen or red. Patient was still on oral clindamycin when he spiked a fever of 103 with metabolic encephalopathy, which improved relatively quick. He did say that prior to this he had severe abdominal pain that is getting better already. CT of the abdomen and pelvis was benign. Blood culture on admission grew group B strep. Repeat blood culture was negative. Per ID's recommendation, we treated him with 1 week of ampicillin. Right now, he will be going home on Zyvox for another week to complete a 2-week course treatment for bacteremia. Patient will hold his Cymbalta while he is on Zyvox. I have updated his PCP about this hospitalization. He will follow up with her in 1 week. The patient was seen and examined today. It took 32 minutes total to discharge this patient, including updating his at the bedside. CONDITION ON DISCHARGE: Improved. DISCHARGE MEDICATIONS: Please see medication reconciliation form. CARROLL LIMA M.D. Job#: [id number] RI cc:ALEKSEY PANDA MD
--- NOTE | 2018-06-13 13:21 | NUR ---
late entry: 1025-room time for ASHUTOSH 1037- Dr. Jae Jerome arrived for ASHUTOSH 1037-Pts throat sprayed with Hurricaine spray for procedure 1041-ASHUTOSH probe in 1044-ASHUTOSH probe out 1050--pt transferred to PACU bay 9 for recovery
--- NOTE | 2018-06-13 13:23 | NUR ---
Removed Right IJ at this time. Tip intact. Pressure dressing applied. No bleeding noted. Patient tolerated well. No s/s of distress noted
--- NOTE | 2018-06-13 13:54 | NUR ---
Patient discharged from facility to home. Patient assisted out via wheelchair via staff. Reviewed all discharge paperwork, follow up appts, and RX's called in per PCP. Patient was made aware. No s/s of distress noted. Right IJ dressing clean and dry. No c/o pain
--- NOTE | 2018-06-13 14:39 | NUR ---
IMM EXPLAINED, SIGNED AND PLACED IN CHART COPY TO PT IN CARE TRANSITIONS FOLDER
[2018-06-13] MEDS ORDERED: WARFARIN SOD 5 MG TAB PO SCH (17:00)
[2018-06-13] MEDS ORDERED: MIDAZOLAM HCL 2 MG/2 ML VIAL ONE (18:00)
[2018-06-13] MEDS ORDERED: KETAMINE HCL INJ 50 MG/ML 10 ML VIAL ONE (18:00)
[2018-06-13] MEDS ORDERED: INSULIN GLARGINE 100 UNITS/ML VIAL SQ SCH (21:00)
== END 2018-06-13 13:54 | disposition home or self-care (01) | DRG 871 ==
LOC: ER 09:59 → ERHOLD 12:17 → ICU 15:19 → IMCU 06-06 15:50 → MED/SURG 06-09 20:48
PROVIDERS: ADMIT Internal Medicine; ATTEND Internal Medicine
PROC: 02HV33Z Insertion of Infusion Device into Superior Vena Cava, Percutaneous Approach (ICD-10-PCS; principal; 2018-06-08)
DX: A40.1 Sepsis due to streptococcus, group B (principal); Q79.1 Other congenital malformations of diaphragm; E11.10 Type 2 diabetes mellitus with ketoacidosis without coma; G93.41 Metabolic encephalopathy; N17.9 Acute kidney failure, unspecified; L03.115 Cellulitis of right lower limb; E87.2 Acidosis; Z68.41 Body mass index [BMI] 40.0-44.9, adult; E87.1 Hypo-osmolality and hyponatremia; E11.22 Type 2 diabetes mellitus with diabetic chronic kidney disease; I12.9 Hypertensive chronic kidney disease with stage 1 through stage 4 chronic kidney disease, or unspecified chronic kidney disease; Z79.4 Long term (current) use of insulin; I89.0 Lymphedema, not elsewhere classified; N40.0 Benign prostatic hyperplasia without lower urinary tract symptoms; F32.9 Major depressive disorder, single episode, unspecified; I25.10 Atherosclerotic heart disease of native coronary artery without angina pectoris; E11.65 Type 2 diabetes mellitus with hyperglycemia; Z79.01 Long term (current) use of anticoagulants; B96.89 Other specified bacterial agents as the cause of diseases classified elsewhere; J44.9 Chronic obstructive pulmonary disease, unspecified; Z95.1 Presence of aortocoronary bypass graft; E66.01 Morbid (severe) obesity due to excess calories; G47.33 Obstructive sleep apnea (adult) (pediatric); N18.3 Chronic kidney disease, stage 3 (moderate); E11.42 Type 2 diabetes mellitus with diabetic polyneuropathy; B35.1 Tinea unguium; F41.9 Anxiety disorder, unspecified; Z83.3 Family history of diabetes mellitus; Z82.49 Family history of ischemic heart disease and other diseases of the circulatory system; R65.20 Severe sepsis without septic shock; E78.5 Hyperlipidemia, unspecified; B35.3 Tinea pedis; Z88.1 Allergy status to other antibiotic agents; Z88.8 Allergy status to other drugs, medicaments and biological substances; I48.0 Paroxysmal atrial fibrillation
CPT/HCPCS: 36415; 36556; 71045; 74176; 76937; 80048; 80053; 81001; 82270; 82550; 82553; 82784; 82948; 83036; 83605; 83735; 83880; 84100; 84439; 84443; 84484; 85025; 85610; 85730; 87040; 87071; 87086; 87186; 87205; 93005; 93306; 93312; 96367; 96372; 97139; 99284; C1751; J0360; J1580; J1815; J2001; J2020; J2250; J2543; J7030

== ENCOUNTER 2018-08-10 14:10 | Inpatient (IN) | payer MEDICARE, OTHER ==
[~2018-08-10] VITALS: Ht 177.8 cm; Wt 123.4 kg
--- OUTSIDE RECORDS SUMMARY | 2018-08-10 14:12 | XMS REPORT | Clinical Summary ---
Author Author JAYASHREE [facility] Organization [facility] Address Unknown Phone Unavailable Care Team Providers Care Canal Superintendent Name Role Phone Shahab Chino MD PCP [...] RCA stent and 30-40% distal RCA lesion. [facility] 06/2014 at [facility]. Cath film reviewed by his route driver coin machines, Dr. Moeller, and she reported the following findings: LM 60% stenosis, RI 90%, LCx occluded, RCA distal 70%. Diabetes 02/01/2013 Mixed hyperlipidemia 02/01/2013 Benign essential hypertension 02/01/2013 Morbid obesity 02/01/2013 S/P coronary artery stent placement - RCA stent - [id number] 02/01/2013 Encounters Care Team Description Date Type Specialty John Paul Conklin MD Lung nodule 08/25/2017 Hospital Radiology Encounter Izaiah Irene MD Lung nodule (Primary Dx) 08/25/2017 Orders Only Lab John Paul Conklin MD Lung nodule (Primary Dx) 08/19/2017 Outside Orders Central Scheduling after 08/09/2017 Social History Date Tobacco Use Types Packs/Day [...] Area Manufactur er 05/15/2019 [id number] / / [id number] Sternal Zipfix,With Needle Sterile Cardiovasc N/A: Sternum SYNTHES Pack Of 20 - [id number] [employer] Implanted: Qty: 1 on 07/18/2014 by Bertram Virk MD 05/15/2019 [id number] / / [id number] Sternal Zipfix,With Needle Sterile Cardiovasc N/A: Sternum SYNTHES Pack Of 20 - [id number] [employer] Implanted: Qty: 1 on 07/18/2014 by Bertram Virk MD Procedures Comments Procedure Name Priority Date/Time Associated Diagnosis CT LIMITED/LOCALIZED Routine 08/25/2017 FOLLOW-UP 1:32 PM CDT PLATELET COUNT STAT 08/25/2017 Lung nodule 11:02 AM CDT PT/APTT STAT 08/25/2017 Lung nodule 11:02 AM CDT after 08/09/2017 Results * CT LIMITED/LOCALIZED FOLLOW-UP (08/25/2017 1:32 PM CDT) Narrative Performed At FINAL REPORT [facility] CT minimal. MEDICAL HISTORY: Lung nodule [...] MD Report Verified Date/Time:08/25/2017 13:48:03 Reading Location: [address] Body Reading Room Procedure Note [...] Report Verified Date/Time: 08/25/2017 13:48:03 Reading Location: [facility] C013Y CT Body Reading Room Performing Organization Address City/[facility] Phone Number GE RIS * PT/aPTT (08/25/2017 11:02 AM CDT) Protime 14.1 11.7 - 14.[address] [facility] INR 1.[address] <=[address] [facility] PTT 36.0 22.5 - 36.[address] [facility] Specimen Blood Narrative Performed At RECOMMENDED COUMADIN/WARFARIN INR THERAPY RANGES [facility] STANDARD DOSE: 2.0 - 3.0 Includes: PROPHYLAXIS for venous thrombosis, [facility] systemic embolization; TREATMENT for venous thrombosis and/or pulmonary embolus. HIGH RISK: Target INR is 2.5-3.5 for patients with mechanical heart valves. Performing Organization Address City/[facility] Phone Number [facility] [address] [place] [address] [facility] * Platelet count (08/25/2017 11:02 AM CDT) Platelets 182 150 - 450 K/CU MM [facility] Specimen Blood Performing Organization Address [facility] Phone Number [facility] [address] [place] [address] [facility] after 08/09/2017 Insurance Payer Benefit Subscriber ID Type Phone Address Plan / Group [employer] xxxxxxxxx Maps O ALL Contracted Advance Directives For more information, please contact: [facility] [address] [place] [address] Date Inactivated Comments Code Status [...]
[2018-08-10] MEDS ORDERED: CLINDAMYCIN PHOS 900MG/ 50ML 50 ML IV STA (14:52)
[2018-08-10 16:00] LABS: HEMATOCRIT 41.8 % (38.2-49.6); HEMOGLOBIN 13.5 g/dL (14.0-18.0); MEAN CORPUSCULAR HGB CONC 32.3 g/dL (31-35); MEAN CORPUSCULAR VOLUME 86.5 fL (81-99); PLATELET COUNT 187 x10e3/uL (140-360); RED BLOOD COUNT 4.83 x10e6/uL (4.3-5.7)
[2018-08-10 16:01] LABS: LYMPHOCYTES % 1.5 % (18.0-39.1); MONOCYTES % 1.1 % (4.4-11.3); NEUTROPHILS % 13.6 % (38.7-80.0); RED CELL DISTRIBUTION WIDTH 14.3 % (11.7-14.4)
--- NOTE | 2018-08-10 16:04 | Diagnostic Imaging Report ---
Exam: Right lower leg, 2 views History: Concern for foreign body. Edema of lower leg Comparison: None. Findings: No acute, displaced fracture or dislocation. Mild degenerative changes of the partially visualized knee joint. No osseous destructive lesions. Soft tissue swelling of the lower leg, most notably about the ankle joint. Metallic clips along the medial aspect of the leg at the level of the knee joint likely reflect prior venous graft harvest. No additional radiopaque soft tissue foreign bodies. Atherosclerotic vascular calcifications. Impression: No acute osseous abnormality. Surgical clips in the medial soft tissues at the level of the knee joint. Otherwise no radiopaque foreign bodies. Diffuse soft tissue swelling of the lower leg without subcutaneous gas. Signed by: Dr. Bertram Savage M.D. on 08/10/2018 4:01 PM
[2018-08-10 17:26] LABS: MAGNESIUM 2.4 MG/DL (1.3-2.1); POTASSIUM 4.2 mmol/L (3.5-5.1)
[2018-08-10 17:27] LABS: ALBUMIN 3.3 g/dL (3.5-5.0); CALCIUM 9.2 mg/dL (8.4-10.2)
[2018-08-10 17:28] LABS: ALBUMIN/GLOBULIN RATIO 0.8 (0.8-2.0); ANION GAP 16.2 mmol/L (8-16)
[2018-08-10 17:35] LABS: CREATININE, SERUM 1.87 mg/dL (0.72-1.25)
[2018-08-10] MEDS ORDERED: INSULIN REGULAR, HUMAN 100 UNIT/1 ML 3ML VIAL SQ ONE (17:45)
[2018-08-10] MEDS ORDERED: SODIUM CHLORIDE 0.9% 1000ML 1,000 ML IV SCH (17:45)
[2018-08-10] MEDS ORDERED: DEXTROSE 50% SYRINGE 50 ML IV PRN (19:00)
--- OUTSIDE RECORDS SUMMARY | 2018-08-10 19:06 | XMS REPORT | Clinical Summary ---
Author Author JAYASHREE [facility] Organization [facility] Address Unknown Phone Unavailable Care Team Providers Care Die Drawing Checker Name Role Phone Shahab Chino MD PCP [...] RCA stent and 30-40% distal RCA lesion. [facility] 06/[address] [facility]. Cath film reviewed by his canvas shop laborer, Dr. Moeller, and she reported the following findings: LM 60% stenosis, RI 90%, LCx occluded, RCA distal 70%. Diabetes 02/01/2013 Mixed hyperlipidemia 02/01/2013 Benign essential hypertension 02/01/2013 Morbid obesity 02/01/2013 S/P coronary artery stent placement - RCA stent - [id number] 02/01/2013 Encounters Care Team Description Date Type [...] Area Manufactur er 05/15/2019 [id number] / / [id number] Sternal Zipfix,With Needle Sterile Cardiovasc N/A: Sternum SYNTHES Pack Of 20 - [id number] [employer] Implanted: Qty: 1 on 07/18/2014 by Bertram Virk MD 05/15/2019 [id number] / / [id number] Sternal Zipfix,With Needle Sterile Cardiovasc N/A: Sternum SYNTHES Pack Of 20 - [id number] [employer] Implanted: Qty: 1 on 07/18/2014 by Bertram Virk MD Procedures Comments Procedure Name Priority Date/Time Associated Diagnosis CT LIMITED/LOCALIZED Routine 08/25/2017 FOLLOW-UP 1:32 PM CDT PLATELET COUNT STAT 08/25/2017 Lung nodule 11:02 AM CDT PT/APTT STAT 08/25/2017 Lung nodule 11:02 AM CDT after 08/09/2017 Results * CT LIMITED/LOCALIZED FOLLOW-UP (08/25/2017 1:32 PM CDT) Narrative Performed At [facility] CT minimal. MEDICAL HISTORY: Lung nodule for [...] MD Report Verified Date/Time:08/25/2017 13:48:03 Reading Location: [address] Body Reading Room Procedure Note [...] Report Verified Date/Time: 08/25/2017 13:48:03 Reading Location: [facility] C013Y CT Body Reading Room Performing Organization Address City/[facility] Phone Number GE RIS * PT/aPTT (08/25/2017 11:02 AM CDT) Protime 14.1 11.7 - 14.7 seconds [facility] INR 1.1 <=5.9 [facility] PTT 36.0 22.5 - 36.0 seconds [facility] Specimen Blood Narrative Performed At RECOMMENDED COUMADIN/WARFARIN INR THERAPY RANGES [facility] STANDARD DOSE: 2.0 - 3.0 Includes: PROPHYLAXIS for venous thrombosis, [facility] systemic embolization; TREATMENT for venous thrombosis and/or pulmonary embolus. HIGH RISK: Target INR is 2.5-3.5 for patients with mechanical heart valves. Performing Organization Address City/[facility] Phone Number [facility] [address] [place] [address] [facility] * Platelet count (08/25/2017 11:02 AM CDT) Platelets 182 150 - 450 K/CU MM [facility] Specimen Blood Performing Organization Address [facility] Cent[facility]ode Phone Number [facility] [address] [place] [address] [facility] after 08/09/2017 Insurance Payer Benefit Subscriber ID Type Phone Address Plan / Group [employer] TEX[employer] xxxxxxxxx Maps O ALL Contracted Advance Directives For more information, please contact: [facility] [address] [place] [address] Date Inactivated Comments Code Status [...]
[2018-08-10] MEDS ORDERED: CLINDAMYCIN PHOS 900MG/ 50ML 50 ML IV SCH (20:00)
--- NOTE | 2018-08-10 20:27 | NUR ---
blood sugar 272 bedside check
[2018-08-10] MEDS: INSULIN REGULAR, HUMAN 100 UNIT/1 ML 3ML VIAL SQ SCH (20:38)
[2018-08-10 21:15] VITALS: BP 162/66
--- NOTE | 2018-08-10 21:20 | NUR ---
patient received from ER. patient is AAOx3. resp even and unlabored. no acute distress noted. right leg is red, swollen and warm to touch. No acute distress noted. Patient denied of any pain or discomfort. Call light within reach. instruct to call for a assistance. be low/locked. continue to monitor closely
[2018-08-10] MEDS: CLINDAMYCIN PHOS 900MG/ 50ML 50 ML IV SCH (21:56)
[2018-08-10] MEDS ORDERED: SODIUM CHLORIDE 0.9% 250ML 250 ML ONE (22:07)
[2018-08-10 23:54] VITALS: BP 162/66
[2018-08-11] VITALS (7 sets, daily range): BP systolic 123–171; BP diastolic 59–78
[2018-08-11] MEDS: CLINDAMYCIN PHOS 900MG/ 50ML 50 ML IV SCH (03:11)
[2018-08-11] MEDS: INSULIN REGULAR, HUMAN 100 UNIT/1 ML 3ML VIAL SQ SCH ×4 (08:15→20:36)
[2018-08-11] MEDS ORDERED: WARFARIN SOD 2.5 MG TAB PO SCH ×2 (09:45)
[2018-08-11] MEDS ORDERED: NON-FORMULARY MEDICATION (Benzonatate (Tessalon Perle) 200 MG) PO PRN (09:45)
[2018-08-11] MEDS ORDERED: BENZONATATE 100 MG CAP PO PRN (10:00)
[2018-08-11] MEDS: CALCIUM CARBONATE 500 MG CHEWABLE TABS PO SCH (10:35)
[2018-08-11] MEDS: FUROSEMIDE 40 MG TAB PO SCH (10:35)
[2018-08-11] MEDS: METOLAZONE 5 MG TAB PO SCH (10:35)
[2018-08-11] MEDS: ASPIRIN 81 MG CHEW TAB PO SCH (10:35)
[2018-08-11] MEDS: PIPER-TAZ 3.375 GM 50 ML IV SCH ×2 (10:40→11:50)
[2018-08-11] MEDS ORDERED: PANTOPRAZOLE SOD 40 MG TABEC PO SCH (10:45)
[2018-08-11 11:08] LABS: INR 2.07
[2018-08-11] MEDS ORDERED: CEFTRIAXONE SOD 1 GM VIAL IV SCH (11:45)
--- NOTE | 2018-08-11 14:50 | NUR ---
Paged Dr. Curry per pharmacy to clarify Zosyn order. Awaiting call back.
[2018-08-11] MEDS ORDERED: LACTOBACILLUS ACIDOPHILUS CAPSULE PO SCH (17:00)
[2018-08-11] MEDS ORDERED: WARFARIN SOD 5 MG TAB PO SCH (17:00)
[2018-08-11] MEDS ORDERED: GABAPENTIN 300 MG CAP PO SCH (17:00)
[2018-08-11] MEDS ORDERED: METOPROLOL TARTRATE 25 MG TAB PO SCH (17:00)
--- NOTE | 2018-08-11 17:20 | NUR ---
resumed care, denies pain at this time, redness noted, to rle, updated on poc vocied understanding, call light in reach will continue to monitor
[2018-08-11] MEDS: METOPROLOL TARTRATE 25 MG TAB PO SCH (17:37)
[2018-08-11] MEDS: GABAPENTIN 300 MG CAP PO SCH (17:38)
[2018-08-11] MEDS: LACTOBACILLUS ACIDOPHILUS CAPSULE PO SCH (17:38)
[2018-08-11] MEDS ORDERED: CEFTRIAXONE SOD 2 GM/NS 100 ML 100 ML IV SCH (18:00)
--- NOTE | 2018-08-11 18:57 | History and Physical ---
REASON FOR ADMISSION: Cellulitis of the right leg. HISTORY OF PRESENT ILLNESS: Thank you so much for asking me to see this patient. This patient is very pleasant 78-year-old white male, who has history of diabetes mellitus, history of cellulitis of his leg before. This is his 12th time. The patient who comes in with redness and swelling of his leg. There is no specific injury or trauma to the leg. PAST MEDICAL HISTORY: The patient has history of diabetes mellitus, chronic kidney disease, neuropathy, hyperlipidemia, depression, anxiety disorder, atrial fibrillation, enlarged prostate, obstructive sleep apnea, coronary artery disease, CABG in 2017 and left hemidiaphragmatic elevation. PAST SURGICAL HISTORY: As above. ALLERGIES: NKA. SOCIAL HISTORY: There is no smoking, drug abuse, or alcohol abuse. 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 FAMILY HISTORY: Hypertension. REVIEW OF SYSTEMS: HEENT: There is no headache, visual changes, or hearing changes. GI: There is no nausea, no vomiting, no diarrhea. CARDIAC: There is no arrhythmia or chest pain. NEURO: No seizure activity. SKIN: No rashes on the leg. He does have dry skin bilateral feet. All other symptoms are within normal limits. PHYSICAL EXAMINATION: GENERAL: He is currently alert, oriented, does not seem to be in acute distress. VITAL SIGNS: Stable, currently afebrile. HEENT: Normocephalic. Not icteric. NECK: Supple. CHEST: Clear bilateral. HEART: S1, S2. No S3, S4, or murmur. ABDOMEN: Soft. Bowel sounds present. EXTREMITIES: Tenderness to the leg. There is erythema. There is edema involving the right leg from the ankle all the way to below the knee. SKIN: Extremely dry in both soles of the feet. He has several toenails, which are blackish and yellowish discolored. LABORATORY DATA: Reviewed. His BUN 48, creatinine 1.87. White count 16.3, hemoglobin 13.5. IMPRESSION: 1. Cellulitis of the right leg. 2. Obesity. 3. Chronic kidney disease. 4. History of coronary artery disease. 5. History of recurrent infection. 6. Dermatitis of the skin. 7. Fungal infection. The patient is currently on clindamycin. We will add Rocephin. We will observe clinically. We will see how he is doing from peripheral vascular disease. 8. We will follow. MD REEMA Perkins /[id number]
--- NOTE | 2018-08-11 19:05 | NUR ---
Patient visited in room during nursing rounds. Patient alert and oriented x3. Pt sitting on recliner chair at bedside. Right lower extremity erythematous and swollen (cellulitis). Patient denies pain or any discomfort at this time. Patient ambulatory in room prn. Call ortega within reach. Will monitor closely.
--- NOTE | 2018-08-11 19:58 | NUR ---
Call attempt and left voice message for regarding patient's fingerstick blood sugar of 405. Awaiting on MD call back.
--- NOTE | 2018-08-11 20:08 | NUR ---
Spoke with over the phone and informed him of fingerstick blood glucose of 405 and per sliding scale to call MD if BS > 350. MD aware and ordered to just give pt 12 units Regular Insulin tonight.
[2018-08-11] MEDS ORDERED: INSULIN REGULAR, HUMAN 100 UNIT/1 ML 3ML VIAL SQ NR (20:15)
[2018-08-11] MEDS: PHENOL TOP SCH (20:17)
[2018-08-11] MEDS: DULOXETINE HCL 20 MG DELAYED RELEASE PO SCH (20:24)
[2018-08-11] MEDS: ATORVASTATIN 40 MG TAB PO SCH (20:25)
[2018-08-11] MEDS: TERAZOSIN HCL 5 MG CAP PO SCH (20:25)
[2018-08-11] MEDS ORDERED: PHENOL TOP SCH (21:00)
[2018-08-11] MEDS ORDERED: ATORVASTATIN 20 MG TAB PO SCH (21:00)
[2018-08-12] VITALS (8 sets, daily range): BP systolic 116–153; BP diastolic 55–88
[2018-08-12 06:17] LABS: BASOPHILS # (AUTO) 0.1 (0.0-0.1); BASOPHILS % 0.5 % (0.0-1.0); EOSINOPHILS # (AUTO) 0.5 (0.0-0.4); EOSINOPHILS % 4.6 % (0.0-6.0); HEMOGLOBIN 12.8 g/dL (14.0-18.0); LYMPHOCYTES % 20.4 % (18.0-39.1); MEAN CORPUSCULAR HEMOGLOBIN 28.2 pg (28-32); MEAN CORPUSCULAR VOLUME 88.1 fL (81-99); MONOCYTES % 9.8 % (4.4-11.3); NEUTROPHILS # (AUTO) 6.3 (2.1-6.9); NEUTROPHILS % 64.2 % (38.7-80.0); PLATELET COUNT 161 x10e3/uL (140-360); RED BLOOD COUNT 4.54 x10e6/uL (4.3-5.7); RED CELL DISTRIBUTION WIDTH 14.2 % (11.7-14.4)
[2018-08-12 06:58] LABS: CALCIUM 8.7 mg/dL (8.4-10.2); CREATININE, SERUM 1.89 mg/dL (0.72-1.25)
[2018-08-12 07:09] LABS: INR 1.89; PROTHROMBIN TIME 22.4 seconds (11.9-14.5)
[2018-08-12] MEDS: INSULIN REGULAR, HUMAN 100 UNIT/1 ML 3ML VIAL SQ SCH ×4 (07:30→21:18)
[2018-08-12] MEDS ORDERED: CALCIUM CARBONATE 500 MG CHEWABLE TABS PO SCH ×2 (09:00)
[2018-08-12] MEDS ORDERED: FUROSEMIDE 40 MG TAB PO SCH (09:00)
[2018-08-12] MEDS ORDERED: DULOXETINE HCL 20 MG DELAYED RELEASE PO SCH (09:00)
[2018-08-12] MEDS ORDERED: ASPIRIN 81 MG CHEW TAB PO SCH (09:00)
[2018-08-12] MEDS ORDERED: METOLAZONE 5 MG TAB PO SCH (09:00)
[2018-08-12] MEDS ORDERED: PANTOPRAZOLE SOD 40 MG TABEC PO SCH (09:00)
[2018-08-12] MEDS: FUROSEMIDE 40 MG TAB PO SCH (09:04)
[2018-08-12] MEDS: GABAPENTIN 300 MG CAP PO SCH ×2 (09:04→17:11)
[2018-08-12] MEDS: CALCIUM CARBONATE 500 MG CHEWABLE TABS PO SCH (09:04)
[2018-08-12] MEDS: ASPIRIN 81 MG CHEW TAB PO SCH (09:04)
[2018-08-12] MEDS: LACTOBACILLUS ACIDOPHILUS CAPSULE PO SCH ×2 (09:04→17:11)
[2018-08-12] MEDS: PANTOPRAZOLE SOD 40 MG TABEC PO SCH (09:04)
[2018-08-12] MEDS ORDERED: LEVEMIR100 UNIT/1 SQ (09:11)
[2018-08-12] MEDS: METOLAZONE 5 MG TAB PO SCH (09:12)
[2018-08-12] MEDS: METOPROLOL TARTRATE 25 MG TAB PO SCH ×2 (09:12→17:13)
--- NOTE | 2018-08-12 10:20 | NUR ---
CASE MANAGEMENT ASSESSMENT Pesticide Applicator to bedside to discuss plan of care with patient/family. CM/SW role and care transitions discussed. Anticipated discharge plan discussed along with duration of care. CM/SW discussed patients right to make decisions in care. CM/SW work hours given. Patient lives: with his Herb Admit/Transfer: thru ED Hospital/ER visits since last admit: 0; last admitted 2 months ago POA/Emergency contact: Herb Alexandre [phone] Current/Previous Home Health: none PCP/Follow-up Care: Dr. Jacobson at [facility] Current/Previous DME: CPAP, Oxygen PRN Medications (referring to index hospitalization or the first time you were in the hospital) a. Were changes made in your medications when you were in the hospital on June 13, 2018? yes b. Did you understand the changes? yes; antibiotics x 7 days c. Were you able to obtain your new medications right away? yes d. Were you able to take your medications like the doctor wanted you to? yes e. Did the hospital give you an accurate, easy to understand list of medications when you left? yes Scale of 1-10 how comfortable does patient feel with disease management in outpatient settin Other Services: none Employment Status: retired Areas of Concerns: recurrent cellulitis Referral Needs: none Education Needs: medical management IMM/VILLAVICENCIO given and signed (if applicable): IMM letter delivered and explained to pt. He verbalized understanding. Signed copy placed in chart. Copy to pt. Goal for discharge: Home as soon as possible. pt stated he has a family reunion tomorrow. CM/SW left business card at the bedside with contact information. Name and number was also written on the patients whiteboard. Patient verbalized understanding of discussion. CM will follow-up with ongoing discharge and transition of care needs.
[2018-08-12] MEDS: CLINDAMYCIN PHOS 900MG/ 50ML 50 ML IV SCH ×2 (12:45→17:12)
[2018-08-12] MEDS ORDERED: WARFARIN SOD 2.5 MG TAB PO SCH (17:00)
[2018-08-12] MEDS: CEFTRIAXONE SOD 2 GM/NS 100 ML 100 ML IV SCH (17:45)
--- NOTE | 2018-08-12 19:20 | NUR ---
Patient visited in room during nursing rounds. Patient alert and oriented x3. Pt resting in bed. Right lower extremity erythematous and swollen (cellulitis). Patient denies pain or any discomfort at this time. Patient ambulatory in room prn. Call ortega within reach. Will monitor closely.
[2018-08-12] MEDS: PHENOL TOP SCH (20:19)
[2018-08-12] MEDS: DULOXETINE HCL 20 MG DELAYED RELEASE PO SCH (21:16)
[2018-08-12] MEDS: TERAZOSIN HCL 5 MG CAP PO SCH (21:17)
[2018-08-12] MEDS: ATORVASTATIN 40 MG TAB PO SCH (21:17)
[2018-08-13] MEDS: CLINDAMYCIN PHOS 900MG/ 50ML 50 ML IV SCH ×2 (00:12→06:40)
[2018-08-13 00:38] VITALS: BP 124/41
[2018-08-13 05:59] VITALS: BP 142/66
[2018-08-13] MEDS: PANTOPRAZOLE SOD 40 MG TABEC PO SCH (06:40)
--- NOTE | 2018-08-13 06:42 | NUR ---
Patient given signed and obtained copy of discharge papers. Patient also has the original prescription pad with 2 new antibiotics ordered by . Patient informed he will be picked up by her around 0800 this morning. Information to be passed on to dayshiulises MORALES.
[2018-08-13] MEDS: INSULIN REGULAR, HUMAN 100 UNIT/1 ML 3ML VIAL SQ SCH (07:30)
[2018-08-13 07:55] VITALS: BP 140/66
[2018-08-13 08:20] VITALS: BP 140/66
[2018-08-13] MEDS: LACTOBACILLUS ACIDOPHILUS CAPSULE PO SCH (08:27)
[2018-08-13] MEDS: METOLAZONE 5 MG TAB PO SCH (08:27)
[2018-08-13] MEDS: FUROSEMIDE 40 MG TAB PO SCH (08:27)
[2018-08-13] MEDS: CALCIUM CARBONATE 500 MG CHEWABLE TABS PO SCH (08:27)
[2018-08-13] MEDS: GABAPENTIN 300 MG CAP PO SCH (08:27)
[2018-08-13] MEDS: ASPIRIN 81 MG CHEW TAB PO SCH (08:27)
[2018-08-13] MEDS: CEFTRIAXONE SOD 2 GM/NS 100 ML 100 ML IV SCH (08:38)
[2018-08-13] MEDS: METOPROLOL TARTRATE 25 MG TAB PO SCH (08:38)
--- NOTE | 2018-08-13 12:06 | Discharge Summary ---
CONSULTANTS: Bonnie Curry MD FINAL DIAGNOSES: 1. Cellulitis of the right lower extremity. 2. Uncontrolled diabetes with increase in blood sugar. SUMMARY: An 78-year-old male, came in with right lower extremity cellulitis. The redness travel all the way up to the right in the thigh area. The patient was placed on clindamycin and Rocephin. The patient is discharged home with clindamycin and Cipro. The patient is stable. His redness has significantly subsided. The swelling has also subsided as well. Blood sugar better controlled with adjustment of his diabetes medication. The patient is stable, discharged home. Follow up with his family doctor with medication adjustment. The patient will resume his home medication. All instructions given. The patient's WBC was 9.8, hemoglobin 12.8, hematocrit 40. BUN and creatinine is 44 and 1.8 baseline. INR is 1.89. The patient is stable, discharged home. Follow up as an outpatient. He will resume his warfarin treatment. MD JUNITO Coombs/ZORAIDA /[id number]
== END 2018-08-13 08:45 | disposition home or self-care (01) | DRG 603 ==
LOC: ER 14:10 → ERHOLD 19:02 → MED/SURG2 21:00
PROVIDERS: ADMIT Internal Medicine; ATTEND Internal Medicine
DX: L03.115 Cellulitis of right lower limb (principal); E11.40 Type 2 diabetes mellitus with diabetic neuropathy, unspecified; Z79.4 Long term (current) use of insulin; E11.22 Type 2 diabetes mellitus with diabetic chronic kidney disease; I12.9 Hypertensive chronic kidney disease with stage 1 through stage 4 chronic kidney disease, or unspecified chronic kidney disease; N18.9 Chronic kidney disease, unspecified; E66.9 Obesity, unspecified; Z68.39 Body mass index [BMI] 39.0-39.9, adult; I25.10 Atherosclerotic heart disease of native coronary artery without angina pectoris; G47.33 Obstructive sleep apnea (adult) (pediatric); Z95.1 Presence of aortocoronary bypass graft; F32.9 Major depressive disorder, single episode, unspecified; F41.9 Anxiety disorder, unspecified
CPT/HCPCS: 36415; 80048; 80053; 82948; 83605; 83735; 85025; 85610; 87040; 93971; 96372; 99284; J0696; J2543; J7030; J7050

== ENCOUNTER 2018-12-14 11:42 | Inpatient (IN) | payer OTHER ==
[~2018-12-14] VITALS: Ht 177.8 cm; Wt 132.6 kg
[~2018-12-14 11:42] MED LIST changes: +LEVEMIR100 UNIT/1 SQ
--- OUTSIDE RECORDS SUMMARY | 2018-12-14 11:45 | XMS REPORT | Clinical Summary ---
Author Author JAYASHREE [facility] Organization [facility] Address Unknown Phone Unavailable Care Team Providers Care Preparer Samples And Repairs Name Role Phone Shahab Chino MD PCP [...] RCA stent and 30-40% distal RCA lesion. [facility] 06/2014 at [facility]. Cath film reviewed by his beef tagger, Dr. Moeller, and she reported the following findings: LM 60% stenosis, RI 90%, LCx occluded, RCA distal 70%. Diabetes 02/01/2013 Mixed hyperlipidemia 02/01/2013 Benign essential hypertension 02/01/2013 Morbid obesity 02/01/2013 S/P coronary artery stent placement - RCA stent - [id number] 02/01/2013 Social History Date Tobacco Use Types Packs/Day Years Used Never Smoker Alcohol Use Drinks/Week oz/Week Comments No Sex Assigned at Date Recorded Not on file Industry Job Start Date Occupation Not on file Not on file Not on file Travel End Travel History Travel Start No recent travel history available. Last Filed Vital Signs Not on file Plan of Treatment Not on file Implants Device Identifier Shelf Expiration Date Model / Serial / Lot Implanted Type Area Manufactur er 05/15/2019 [id number] / / [id number] Sternal Zipfix,With Needle Sterile Cardiovasc N/A: Sternum SYNTHES Pack Of 20 - [id number] ular [employer] Implanted: Qty: 1 on 07/18/2014 by Bertram Virk MD 05/15/2019.501.001.20S / / [id number] Sternal Zipfix,With Needle Sterile Cardiovasc N/A: Sternum SYNTHES Pack Of 20 - [id number] [employer] Implanted: Qty: 1 on 07/18/2014 by Bertram Virk MD Results Not on fileafter 12/13/2017 Insurance Payer Benefit Subscriber ID Type Phone Address Plan / Group TEXAN[employer] TEX[employer] xxxxxxxxx [facility] Contracted Advance Directives For more information, please contact: [facility] [address] [place] [address] Date Inactivated Comments Code Status Date [...]
[2018-12-14] MEDS ORDERED: CLINDAMYCIN PHOS 900MG/ 50ML 50 ML IV STA (12:02)
[2018-12-14] MEDS ORDERED: SODIUM CHLORIDE 0.9% 1000ML 1,000 ML IV STA (12:02)
--- NOTE | 2018-12-14 12:45 | NUR ---
MULTIPLE ATTEMPTS TO START IV FAILED. DR ALFARO NOTIFIED AT THIS TIME. DR ALFARO ATTEMPTED RIGHT EJ X 2 - ABLE TO DRAW LABS BUT IV ACCESS NOT OBTAINED.
--- NOTE | 2018-12-14 13:22 | NUR ---
ULTRASOUND AT BEDSIDE
[2018-12-14 13:44] LABS: BASOPHILS % 0.3 % (0.0-1.0); EOSINOPHILS # (AUTO) 0.3 (0.0-0.4); EOSINOPHILS % 2.3 % (0.0-6.0); HEMATOCRIT 38.1 % (38.2-49.6); HEMOGLOBIN 12.5 g/dL (14.0-18.0); LYMPHOCYTES % 6.8 % (18.0-39.1); MEAN CORPUSCULAR HEMOGLOBIN 28.3 pg (28-32); MEAN CORPUSCULAR HGB CONC 32.8 g/dL (31-35); MEAN CORPUSCULAR VOLUME 86.4 fL (81-99); MONOCYTES # (AUTO) 0.9 (0.2-0.8); MONOCYTES % 6.2 % (4.4-11.3); NEUTROPHILS # (AUTO) 12.2 (2.1-6.9); PLATELET COUNT 150 x10e3/uL (140-360); RED BLOOD COUNT 4.41 x10e6/uL (4.3-5.7); RED CELL DISTRIBUTION WIDTH 14.8 % (11.7-14.4)
[2018-12-14 14:01] LABS: ALBUMIN 3.4 g/dL (3.5-5.0); ALBUMIN/GLOBULIN RATIO 0.9 (0.8-2.0); ANION GAP 16.7 mmol/L (8-16); CALCIUM 9.1 mg/dL (8.4-10.2); CREATININE, SERUM 1.84 mg/dL (0.72-1.25); POTASSIUM 4.7 mmol/L (3.5-5.1)
[2018-12-14 14:08] LABS: CREATINE KINASE MB 4.4 ng/mL (0-5.0)
--- NOTE | 2018-12-14 14:29 | Diagnostic Imaging Report ---
Right tib-fib series, 2 views. History: Right lower leg cellulitis. Comparison: 08/10/2018. Findings: There is diffuse soft tissue swelling. Vascular calcifications are noted diffusely. Surgical clips are noted in the proximal leg. Bone mineralization is normal. There is no evidence of fracture or dislocation. There are no erosive or sclerotic lesions. Mild degenerative changes are noted at the knee. IMPRESSION: Diffuse soft tissue swelling without acute osseous abnormality. Signed by: Anand Crum on 12/14/2018 2:26 PM
--- NOTE | 2018-12-14 15:08 | NUR ---
PATIENT PROVIDED WITH SANDWICH, APPLESAUCE, AND JUICE AT THIS TIME
--- OUTSIDE RECORDS SUMMARY | 2018-12-14 15:31 | XMS REPORT | Clinical Summary ---
Author Author JAYASHREE [facility] Organization [facility] Address Unknown Phone Unavailable Care Team Providers Care Direct Of Real Estate Name Role Phone Shahab Chino MD PCP [...] RCA stent and 30-40% distal RCA lesion. [facility] 06/2014 at [facility]. Cath film reviewed by his bell ringer, Dr. Moeller, and she reported the following findings: LM 60% stenosis, RI 90%, LCx occluded, RCA distal 70%. 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 05/15/2019 [id number] / / [id number] Sternal Zipfix,With Needle Sterile Cardiovasc N/A: Sternum SYNTHES Pack Of 20 - [id number] [email or web address] Implanted: Qty: 1 on 07/18/2014 by Bertram Virk MD 05/15/2019.501.001.20S / / [id number] Sternal Zipfix,With Needle Sterile Cardiovasc N/A: Sternum SYNTHES Pack Of 20 - [id number] [employer] Implanted: Qty: 1 on 07/18/2014 by Bertram Virk MD Results Not on fileafter 12/13/2017 Insurance Payer Benefit Subscriber ID Type Phone Address Plan / Group [employer] xxxxxxxxx [facility] Cont[facility] Advance Directives For more information, please contact: [facility] [address] [place] [address] Date Inactivated Comments Code Status Date [...]
--- NOTE | 2018-12-14 15:40 | NUR ---
PATIENT UPDATED ON PLAN OF CARE AGAIN. AWAITING IV ACCESS SO IV ABX CAN BE ADMINISTERED. PATIENT GIVEN TYLENOL FOR TEMP 100.1 AT THIS TIME. PATIENT HAS BEEN SITTING UP IN CHAIR.
[2018-12-14] MEDS: ACETAMINOPHEN 325 MG TAB PO PRN (16:16)
[2018-12-14] MEDS ORDERED: CLINDAMYCIN PHOS 900MG/ 50ML 50 ML IV ONE (16:17)
[2018-12-14] MEDS: SODIUM CHLORIDE 0.9% 1000ML 1,000 ML IV SCH (17:01)
[2018-12-14 18:29] VITALS: BP 122/46
[2018-12-14 18:43] VITALS: BP 122/46
--- NOTE | 2018-12-14 19:00 | NUR ---
Received patient from day nurse, safety and fall precautions maintained as per hospital protocol.
[2018-12-14] MEDS ORDERED: DEXTROSE 50% SYRINGE 50 ML IV PRN (19:45)
[2018-12-14 20:00] VITALS: BP 124/78
[2018-12-14] MEDS ORDERED: INSULIN GLARGINE 100 UNITS/ML VIAL SQ NR (20:00)
--- NOTE | 2018-12-14 20:02 | NUR ---
Critical fs was reported to by day nurse and ordered insulins.
[2018-12-14 20:51] VITALS: BP 123/89
[2018-12-14] MEDS: INSULIN LISPRO 100 UNIT/1 ML 3ML VIAL SQ SCH (21:51)
[2018-12-14] MEDS: CLINDAMYCIN PHOS 900MG/ 50ML 50 ML IV SCH (22:35)
[2018-12-15] VITALS (8 sets, daily range): BP systolic 103–146; BP diastolic 50–78
[2018-12-15] MEDS: SODIUM CHLORIDE 0.9% 1000ML 1,000 ML IV SCH (04:02)
[2018-12-15] MEDS: ACETAMINOPHEN 325 MG TAB PO PRN (04:03)
[2018-12-15 05:27] LABS: BASOPHILS % 0.3 % (0.0-1.0); EOSINOPHILS # (AUTO) 0.3 (0.0-0.4); EOSINOPHILS % 2.1 % (0.0-6.0); HEMATOCRIT 35.1 % (38.2-49.6); HEMOGLOBIN 11.4 g/dL (14.0-18.0); LYMPHOCYTES % 8.2 % (18.0-39.1); MEAN CORPUSCULAR HGB CONC 32.5 g/dL (31-35); MEAN CORPUSCULAR VOLUME 86.2 fL (81-99); MONOCYTES # (AUTO) 0.8 (0.2-0.8); MONOCYTES % 6.7 % (4.4-11.3); NEUTROPHILS # (AUTO) 9.8 (2.1-6.9); NEUTROPHILS % 82.3 % (38.7-80.0); PLATELET COUNT 127 x10e3/uL (140-360); RED BLOOD COUNT 4.07 x10e6/uL (4.3-5.7); RED CELL DISTRIBUTION WIDTH 14.7 % (11.7-14.4)
[2018-12-15 05:49] LABS: CREATINE KINASE MB 3.4 ng/mL (0-5.0)
[2018-12-15] MEDS: CLINDAMYCIN PHOS 900MG/ 50ML 50 ML IV SCH (06:03)
--- NOTE | 2018-12-15 06:36 | NUR ---
Called about trending up troponin levels, this morning (0.033) states call him if the levels is greater than 1.
--- NOTE | 2018-12-15 07:00 | NUR ---
patient endorsed to next shift for continuity of care.
[2018-12-15 07:32] LABS: ALBUMIN 3.1 g/dL (3.5-5.0); ANION GAP 12.7 mmol/L (8-16); CALCIUM 8.8 mg/dL (8.4-10.2); CREATININE, SERUM 1.72 mg/dL (0.72-1.25); POTASSIUM 3.7 mmol/L (3.5-5.1)
[2018-12-15] MEDS ORDERED: WARFARIN SOD 2.5 MG TAB PO SCH (09:15)
[2018-12-15] MEDS ORDERED: FUROSEMIDE INJ 10 MG/ML 4 ML VIAL IV ONE (10:00)
[2018-12-15 10:17] LABS: INR 1.69; PROTHROMBIN TIME 20.5 seconds (11.9-14.5)
[2018-12-15] MEDS: PIPER-TAZ 3.375 GM 50 ML IV SCH ×3 (10:24→22:08)
[2018-12-15] MEDS: INSULIN LISPRO 100 UNIT/1 ML 3ML VIAL SQ SCH ×4 (11:13→20:50)
[2018-12-15] MEDS: INSULIN GLARGINE 100 UNITS/ML VIAL SQ SCH ×2 (11:13→17:48)
--- NOTE | 2018-12-15 12:05 | History and Physical ---
PRIMARY CARE PHYSICIAN: Dr. Jacobson. CHIEF COMPLAINT: Right lower extremity cellulitis, swelling, and edema. HISTORY OF PRESENT ILLNESS: The patient is an 78-year-old male, well known to the service. The patient has right lower extremity lymphedema chronically due to vein harvest for the patient's bypass surgery, came in with recurrent lower extremity cellulitis started at the foot and then radiating to his knee area. The patient is otherwise stable. The patient is stating that his swelling has increased lately. The patient has no chest pain. He does have shortness of breath. He does use oxygen. PAST MEDICAL HISTORY: Coronary artery disease with previous bypass graft surgery. Diabetes type 2, on insulin therapy. Diabetic neuropathy, dyslipidemia, major depression, anxiety disorder, atrial fibrillation, enlarged prostate, obstructive sleep apnea, coronary artery disease, bypass graft surgery in 2017. History of chronic left hemidiaphragmatic elevation. PAST SURGICAL HISTORY: Coronary artery bypass graft surgery in 2017. SOCIAL HISTORY: The patient does not smoke or use alcohol. No regular drug use. ALLERGIES: JANUVIA, VANCOMYCIN, QUINAPRIL. HOME MEDICATIONS: List is reviewed. REVIEW OF SYSTEMS: Increase in right lower extremity edema and redness. PHYSICAL EXAMINATION: VITAL SIGNS: Temperature is 98, blood pressure 115/57, pulse rate is 71, respirations 18. GENERAL: The patient is not in acute distress. HEENT: Normocephalic, atraumatic. Pupils reactive. Anicteric. NECK: Supple grossly. PULMONARY: Diminished breath sounds. Some rales at the bases. CARDIOVASCULAR: Sternal scar, atrial fibrillation, rate controlled. ABDOMEN: Soft, obese. EXTREMITIES: Right lower extremity edema, 3+ lymphedema. Right lower extremity, started out at the foot with increasing redness streaking up to the knee in the thigh area. NEUROLOGIC: Diabetic neuropathy without any other focal deficit. LABORATORY DATA: WBC is 14.6, hemoglobin 12.5, hematocrit 38, platelets is 150. Chemistry; sodium is 131, potassium 4.7, chloride 89, bicarb 30, BUN 38, creatinine 1.8, glucose is 387. X-rays show diffuse soft tissue swelling without acute osseus abnormality. IMPRESSION: 1. Right lower extremity cellulitis associated with lymphedema associated with baseline diabetes type 2. 2. Multiple chronic baseline problems including coronary artery disease with previous bypass graft surgery, compensated congestive heart failure. PLAN: Resume home medication. Insulin treatment. Antibiotics. Diuretic. Keep the patient's leg elevated when able. New wound care. Treat the fungal infection of the bilateral lower extremity. The patient is admitted for further treatment. MD JUNITO Coombs/ZORAIDA /[id number]
[2018-12-15 14:52] LABS: CREATINE KINASE MB 6.8 ng/mL (0-5.0)
[2018-12-15] MEDS ORDERED: GABAPENTIN 300 MG CAP PO SCH (17:00)
--- NOTE | 2018-12-15 17:01 | NUR ---
Recvd patient from OBS. AAOx3, Assisted him to bed, encouraged to use call light for assistance, denies any chest pain or SOB, NO Distress, keep monitoring
[2018-12-15] MEDS: WARFARIN SOD 5 MG TAB PO SCH (17:46)
[2018-12-15] MEDS: BETAMETHASONE/CLOTRIMAZOLE CR 15 GM TUBE TOP SCH (17:47)
[2018-12-15] MEDS: METOPROLOL TARTRATE 25 MG TAB PO SCH (17:47)
[2018-12-15] MEDS: LACTOBACILLUS ACIDOPHILUS CAPSULE PO SCH (17:47)
--- NOTE | 2018-12-15 19:27 | Consultation ---
DATE OF CONSULTATION: Pulmonary Consultation The patient of and Dr. Jacobson. HISTORY OF PRESENT ILLNESS: Charming, but unfortunate 78-year-old gentleman with history of chronic cellulitis and edema, following coronary bypass surgery and saphenous vein graft to the right lower extremity. He is chronically edematous despite hose compression stocking and topical antifungal therapy and daily foot baths. He has a history of diabetes, diabetic neuropathy, hyperlipidemia, depression, atrial fibrillation, BPH, sleep apnea, elevated left hemidiaphragm. SOCIAL HISTORY: Nonsmoker. No alcohol. 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 Born in [place], [place]. FAMILY HISTORY: Positive for diabetes. PHYSICAL EXAMINATION: VITAL SIGNS: Temperature 97.2. GENERAL: Burly white male. No acute distress. Sleeping, easily aroused, and has brief episodes of apnea. NECK: Trachea midline. HEART: Irregular rhythm. ABDOMEN: Obese. EXTREMITIES: Edematous with cellulitis and erythema of the right lower extremity. DIAGNOSTIC DATA: Old chest x-ray reveals a chronically elevated left hemidiaphragm, suspicious for __PARALYSIS . PLAN: Plan is for immobilization, topical antifungal, CPAP at night. Consider screening diaphragm and to assess for home oxygen control, diabetes, therapy edematous state. PATIENT NOTES DIAPHRAGM HAS BEEN PRALYZED X 40 YEARS DUE TO A VIRAL INFECTION Thank you for this kind referral. MD VIVIAN Cordero/MODJorge /[id number] DONNA
[2018-12-15] MEDS: ATORVASTATIN 40 MG TAB PO SCH (20:50)
[2018-12-15] MEDS: GABAPENTIN 400 MG CAP PO SCH (20:50)
[2018-12-15] MEDS: TERAZOSIN HCL 5 MG CAP PO SCH (20:50)
--- NOTE | 2018-12-15 20:50 | NUR ---
PATIENT AOX3, SHOWS NO SIGNS OF DISTRESS. NASAL CANNULA INTACT AND FLOWING AT 4 LITERS, NO COMPLAINTS OF PAIN. BED IS LOCKED AND IN LOWEST POSITION, BOTH SIDE RAILS ARE UP, CALL LIGHT WITHIN REACH, WILL CONTINUE TO MONITOR.
[2018-12-15] MEDS ORDERED: ATORVASTATIN 20 MG TAB PO SCH (21:00)
--- NOTE | 2018-12-15 21:00 | NUR ---
PATIENT REFUSES TO CPAP MACHINE AFTER EFFORTS TO GET HIM TO USE IT. WILL CONTINUE TO MONITOR THE SITUATION.
--- NOTE | 2018-12-15 21:45 | NUR ---
SPOKE WITH LAB REGARDING PATIENT'S BLOOD CULTURE RESULTS WITH GROWTH OF GRAM POSITIVE COCCI IN PAIRS.
[2018-12-16] VITALS (8 sets, daily range): BP systolic 119–142; BP diastolic 54–84
[2018-12-16] MEDS: PIPER-TAZ 3.375 GM 50 ML IV SCH ×3 (04:13→16:02)
[2018-12-16 05:36] LABS: BASOPHILS % 0.3 % (0.0-1.0); EOSINOPHILS # (AUTO) 0.5 (0.0-0.4); EOSINOPHILS % 4.6 % (0.0-6.0); HEMATOCRIT 36.7 % (38.2-49.6); HEMOGLOBIN 11.5 g/dL (14.0-18.0); LYMPHOCYTES # (AUTO) 1.5 (1.0-3.2); LYMPHOCYTES % 14.5 % (18.0-39.1); MEAN CORPUSCULAR HEMOGLOBIN 27.6 pg (28-32); MEAN CORPUSCULAR HGB CONC 31.3 g/dL (31-35); MONOCYTES # (AUTO) 0.9 (0.2-0.8); NEUTROPHILS # (AUTO) 7.4 (2.1-6.9); NEUTROPHILS % 71.2 % (38.7-80.0); PLATELET COUNT 132 x10e3/uL (140-360); RED BLOOD COUNT 4.17 x10e6/uL (4.3-5.7); RED CELL DISTRIBUTION WIDTH 14.9 % (11.7-14.4)
[2018-12-16 05:45] LABS: INR 1.73; PROTHROMBIN TIME 20.9 seconds (11.9-14.5)
[2018-12-16 05:50] LABS: ANION GAP 15.6 mmol/L (8-16); CALCIUM 8.4 mg/dL (8.4-10.2); CREATININE, SERUM 1.69 mg/dL (0.72-1.25); POTASSIUM 3.6 mmol/L (3.5-5.1)
[2018-12-16] MEDS: INSULIN LISPRO 100 UNIT/1 ML 3ML VIAL SQ SCH ×4 (07:52→21:01)
[2018-12-16] MEDS: INSULIN GLARGINE 100 UNITS/ML VIAL SQ SCH ×2 (07:53→16:30)
--- NOTE | 2018-12-16 07:56 | NUR ---
patient up in bed watching tv, denies any chest pain or SOB, Call light in reach, no distress noted, on O2 and Humberto hose On
[2018-12-16] MEDS: FUROSEMIDE INJ 10 MG/ML 4 ML VIAL IV SCH (08:28)
[2018-12-16] MEDS: METOPROLOL TARTRATE 25 MG TAB PO SCH ×2 (08:29→17:01)
[2018-12-16] MEDS: BETAMETHASONE/CLOTRIMAZOLE CR 15 GM TUBE TOP SCH ×2 (08:29→17:01)
[2018-12-16] MEDS: METOLAZONE 5 MG TAB PO SCH (08:29)
[2018-12-16] MEDS: GABAPENTIN 400 MG CAP PO SCH (08:29)
[2018-12-16] MEDS: ASPIRIN 81 MG CHEW TAB PO SCH (08:29)
[2018-12-16] MEDS: TERBINAFINE 30 GM CR TP SCH (08:29)
[2018-12-16] MEDS: LACTOBACILLUS ACIDOPHILUS CAPSULE PO SCH ×2 (08:29→17:01)
[2018-12-16] MEDS ORDERED: VANCOMYCIN 750MG/NS 150ML IVPB 150 ML IV SCH (09:00)
--- NOTE | 2018-12-16 09:10 | NUR ---
notified Dr Wells regarding Bipap machine, he said its only for night, not continuos . Charge nurse aware
[2018-12-16] MEDS: PENTOXIFYLLINE 400 MG TAB CR PO SCH ×3 (09:33→21:01)
[2018-12-16] MEDS ORDERED: LINEZOLID 600 MG/D5W 300ML 300 ML IV SCH (10:00)
[2018-12-16] MEDS: LINEZOLID 600 MG/D5W 300ML 300 ML IV SCH ×2 (10:45→21:00)
[2018-12-16] MEDS ORDERED: WARFARIN SOD 2.5 MG TAB PO SCH (17:00)
[2018-12-16] MEDS: TERAZOSIN HCL 5 MG CAP PO SCH (21:00)
[2018-12-16] MEDS: ATORVASTATIN 40 MG TAB PO SCH (21:01)
[2018-12-16] MEDS: GABAPENTIN 300 MG CAP PO SCH (21:02)
[2018-12-17] VITALS (8 sets, daily range): BP systolic 108–142; BP diastolic 50–76
[2018-12-17] MEDS: GABAPENTIN 300 MG CAP PO SCH ×3 (05:39→21:01)
--- NOTE | 2018-12-17 07:09 | NUR ---
RECEIVED PATIENT RESTING IN RECLINER NO SIGNS OF DISTRESS. WHEELS LOCKED, CALL LIGHT IN REACH WILL CONTINUE TO MONITOR PATIENT.
[2018-12-17] MEDS: LINEZOLID 600 MG/D5W 300ML 300 ML IV SCH ×2 (09:05→21:00)
[2018-12-17] MEDS: FUROSEMIDE INJ 10 MG/ML 4 ML VIAL IV SCH (09:05)
[2018-12-17] MEDS: METOLAZONE 5 MG TAB PO SCH (09:05)
[2018-12-17] MEDS: TERBINAFINE 30 GM CR TP SCH (09:05)
[2018-12-17] MEDS: BETAMETHASONE/CLOTRIMAZOLE CR 15 GM TUBE TOP SCH ×2 (09:05→16:01)
[2018-12-17] MEDS: LACTOBACILLUS ACIDOPHILUS CAPSULE PO SCH ×2 (09:05→16:43)
[2018-12-17] MEDS: METOPROLOL TARTRATE 25 MG TAB PO SCH ×2 (09:05→16:43)
[2018-12-17] MEDS: PENTOXIFYLLINE 400 MG TAB CR PO SCH ×3 (09:05→21:01)
[2018-12-17] MEDS: ASPIRIN 81 MG CHEW TAB PO SCH (09:05)
[2018-12-17] MEDS: INSULIN GLARGINE 100 UNITS/ML VIAL SQ SCH ×2 (09:07→16:49)
[2018-12-17] MEDS: INSULIN LISPRO 100 UNIT/1 ML 3ML VIAL SQ SCH ×4 (09:07→21:01)
--- NOTE | 2018-12-17 10:55 | NUR ---
PATIENT A/O X3, EVEN RESPIRATIONS ON 3.5LNC. BOWEL SOUNDS ACTIVE, SKIN INTACT. 2+ PITTING EDEMA TO RLE. THEODORE HOSE BILATERALLY. NO PAIN AT THIS TIME. PATIENT AMBULATES WITH ASSISTANCE. PATIENT VOIDS IN URINAL, CLEAR PALE YELLOW URINE. LEFT HAND 2O GAUGE KVO @ 5 CC/HR. AT BEDSIDE. NO SIGNS OF DISTRESS. CALL LIGHT IN REACH WILL CONTINUE TO MONITOR PATIENT.
[2018-12-17] MEDS: WARFARIN SOD 5 MG TAB PO SCH (16:42)
--- NOTE | 2018-12-17 20:43 | Consultation ---
DATE OF CONSULTATION: 12/17/2018 Infectious Disease Consultation The patient is seen and evaluated. The patient is located at [facility], [facility] in [place]. This is patient of . HISTORY OF PRESENT ILLNESS: Mr. Souza is pleasant 78-year-old gentleman, admitted to [facility] for cellulitis of right lower extremities. He has been having lymphedema and cellulitis off and on of the regular extremity after his cardiovascular surgery. The patient is status post CABG 4 years ago. The patient recently started having this swelling and erythema of right lower extremity again and therefore, came to the hospital. On admission, blood culture was done on December 14, once it came back with coagulase-negative Staph. The other three sets are negative. X-ray of the lower extremity showed diffuse soft tissue swelling without acute osseous abnormality. He also had venous Doppler of the lower extremity on the right side only, which showed no evidence of DVT. Mr. 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 Therefore, Infectious Disease is consulted for management of antibiotics with the concern of bacteremia and cellulitis. PAST MEDICAL HISTORY: Includes coronary artery disease, status post bypass graft, diabetes mellitus type 2, diabetic neuropathy, dyslipidemia, major depression, anxiety disorder, enlarged prostate, obstructive sleep apnea, atrial fibrillation, chronic left hemidiaphragmatic elevation. PAST SURGICAL HISTORY: As mentioned above, coronary artery disease with CABG with vein harvesting from lower extremities. SOCIAL HISTORY: The patient denied any tobacco or alcohol throughout his life. ALLERGIES: ALLERGIC TO VANCOMYCIN, QUINAPRIL, AND JANUVIA. LABORATORY STUDIES: White counts of 10.45, hemoglobin 11.5, platelet count of 132. Sodium 138, potassium 3.6, creatinine 1.65. MICROBIOLOGY: As mentioned above. There are 4 sets of blood culture, 1 is coag-negative staph and the other 3 are negative. REVIEW OF SYSTEMS: No nausea, vomiting, fever, chills, chest pain, shortness of breath, headache, or dysuria. PHYSICAL EXAMINATION: GENERAL: Seems to be alert and oriented x3, very pleasant, comfortable in chair. CV: S1, S2. CHEST: Decreased breath sounds. No acute distress. ABDOMEN: Obese, soft, and nontender. No distention. HEENT: Moist. No pallor. No JVD. EXTREMITIES: Right lower extremity cellulitis with erythema and edema. Moves all extremities. Erythema and edema are all the way almost to the knee. ASSESSMENT AND PLAN: An 78-year-old gentleman with cellulitis of right lower extremities, which he has been battling since his coronary artery bypass graft. He also has lymphedema of the lower extremities. He grew abnormal blood culture, currently on Zyvox with renal insufficiency. Please refer to chart for further management of this patient's antibiotics. This case was discussed with Dr. Curry in details. We want to thank you for this kind consult. Further management of this patient is based on daily finding on laboratory and physical examination. Dictated by Alcon Leonard) MAYRA Yu Bonnie Curry MD /MODL /[id number]
[2018-12-17] MEDS: ATORVASTATIN 40 MG TAB PO SCH (21:01)
[2018-12-17] MEDS: TERAZOSIN HCL 5 MG CAP PO SCH (21:01)
[2018-12-18] VITALS: BP 112/48
[2018-12-18 04:00] VITALS: BP 124/53
[2018-12-18] MEDS: GABAPENTIN 300 MG CAP PO SCH (06:31)
--- NOTE | 2018-12-18 07:15 | NUR ---
RECEIVED PATIENT ASLEEP IN RECLINER NO S/S OF DISTRESS. WHEELS LOCKED, CALL LIGHT IN REACH WILL CONTINUE TO MONITOR PATIENT.
[2018-12-18 08:36] VITALS: BP 144/65
[2018-12-18] MEDS: LINEZOLID 600 MG/D5W 300ML 300 ML IV SCH (09:00)
[2018-12-18] MEDS: TERBINAFINE 30 GM CR TP SCH (09:08)
[2018-12-18] MEDS: BETAMETHASONE/CLOTRIMAZOLE CR 15 GM TUBE TOP SCH (09:08)
[2018-12-18] MEDS: ASPIRIN 81 MG CHEW TAB PO SCH (09:22)
[2018-12-18] MEDS: FUROSEMIDE INJ 10 MG/ML 4 ML VIAL IV SCH (09:22)
[2018-12-18] MEDS: METOPROLOL TARTRATE 25 MG TAB PO SCH (09:22)
[2018-12-18] MEDS: LACTOBACILLUS ACIDOPHILUS CAPSULE PO SCH (09:22)
[2018-12-18] MEDS: METOLAZONE 5 MG TAB PO SCH (09:23)
[2018-12-18] MEDS: PENTOXIFYLLINE 400 MG TAB CR PO SCH (09:23)
[2018-12-18 09:27] VITALS: BP 144/65
[2018-12-18] MEDS: INSULIN LISPRO 100 UNIT/1 ML 3ML VIAL SQ SCH (09:45)
[2018-12-18] MEDS: INSULIN GLARGINE 100 UNITS/ML VIAL SQ SCH (09:46)
[2018-12-18] MEDS ORDERED: CLINDAMYCIN HC150 MG PO (09:55)
--- NOTE | 2018-12-18 10:15 | NUR ---
REMOVED PATIENTS IV, CATHETER TIP INTACT AND PRESSURE DRESSING APPLIED.
--- NOTE | 2018-12-18 10:20 | NUR ---
PATIENT DISCHARGED FROM FACILITY. PATIENT GATHERED ALL PERSONAL BELONGINGS, DISCHARGE INSTRUCTIONS, AND FOLLOW UP INFORMATION. LEFT UNIT IN WHEELCHAIR AND WENT HOME VIA PRIVATE AUTO. NO SIGNS OF DISTRESS WHEN LEAVING FACILITY.
--- NOTE | 2018-12-18 15:35 | Discharge Summary ---
CONSULTANTS: 1. Dr. Escobar. 2. Dr. Mariano Suárez. FINAL DIAGNOSES: 1. Sepsis on admission associated with right lower extremity cellulitis, fever, leukocytosis. 2. Bacteremia, most likely contamination. 3. Baseline right lower extremity lymphedema associated with previous vein harvest for patient's coronary artery bypass graft surgery. 4. Morbidly obesity. 5. Baseline diabetes, anticoagulant therapy for atrial fibrillation. SUMMARY: The patient is an 78-year-old male with fever, leukocytosis, and right lower extremity cellulitis, recurrent secondary to the lymphedema, streaking up the middle inner thigh area. The patient was admitted. Antibiotics given. The patient is doing well. He is comfortable at this time. The patient did well. His streaking has completely resolved. The patient is comfortable. He will go home today with clindamycin 300 mg three times a day for 7 days and Bacid 2 tablets twice a day. I advised the patient to use some yogurt for probiotic. The patient is otherwise stable. Because of his anticoagulant therapy, we will not give doxycycline monohydrate due to interference with the metabolism of the warfarin. The patient is otherwise stable, discharged home today. Follow up as an outpatient with his family physician within a week. MD JUNITO Coombs/ZORAIDA /[id number]
== END 2018-12-18 10:23 | disposition home or self-care (01) | DRG 872 ==
LOC: ER 11:42 → ERHOLD 15:03 → IMCU 17:12 → OBSVTOIN 12-15 09:18 → MED/SURG2 12-15 16:54
PROVIDERS: ADMIT Internal Medicine; ATTEND Internal Medicine
PROC: 02HV33Z Insertion of Infusion Device into Superior Vena Cava, Percutaneous Approach (ICD-10-PCS; principal; 2018-12-15)
DX: A41.9 Sepsis, unspecified organism (principal); Z68.41 Body mass index [BMI] 40.0-44.9, adult; L03.115 Cellulitis of right lower limb; E66.01 Morbid (severe) obesity due to excess calories; I89.0 Lymphedema, not elsewhere classified; I25.10 Atherosclerotic heart disease of native coronary artery without angina pectoris; Z95.1 Presence of aortocoronary bypass graft; E11.40 Type 2 diabetes mellitus with diabetic neuropathy, unspecified; Z79.4 Long term (current) use of insulin; N40.0 Benign prostatic hyperplasia without lower urinary tract symptoms; J98.6 Disorders of diaphragm; E78.5 Hyperlipidemia, unspecified; F32.9 Major depressive disorder, single episode, unspecified; I48.91 Unspecified atrial fibrillation; Z79.01 Long term (current) use of anticoagulants; G47.30 Sleep apnea, unspecified; B36.8 Other specified superficial mycoses
CPT/HCPCS: 36415; 80048; 80053; 82550; 82553; 82947; 82948; 83605; 83880; 84484; 85025; 85610; 87040; 87071; 87205; 93971; 97139; 99284; G0378; J1815; J1940; J2020; J2543; J7030

== ENCOUNTER 2019-01-28 02:41 | Inpatient (IN) | payer OTHER ==
[2019-01-27] MEDS: ALBUTEROL SULF 0.083% NEB SOLN 3 ML NEB NEB SCH (23:10)
[2019-01-28] VITALS (8 sets, daily range): BP systolic 97–168; BP diastolic 40–79
[~2019-01-28] VITALS: Ht 180.3 cm; Wt 123.2 kg
[2019-01-28] MEDS ORDERED: ACETAMINOPHEN 1000 MG/100 ML IV STA (02:43)
[2019-01-28] MEDS ORDERED: SODIUM CHLORIDE 0.9% 1000ML 1,000 ML IV ONE (02:45)
[2019-01-28] MEDS ORDERED: CEFEPIME 2 GM/NS 0.9% 100 ML 100 ML IV STA (02:53)
[2019-01-28 03:10] LABS: BASOPHILS % 0.2 % (0.0-1.0); EOSINOPHILS # (AUTO) 0.3 (0.0-0.4); EOSINOPHILS % 1.8 % (0.0-6.0); HEMATOCRIT 38.6 % (38.2-49.6); HEMOGLOBIN 12.5 g/dL (14.0-18.0); LYMPHOCYTES # (AUTO) 2.1 (1.0-3.2); LYMPHOCYTES % 12.6 % (18.0-39.1); MEAN CORPUSCULAR HEMOGLOBIN 28.5 pg (28-32); MEAN CORPUSCULAR HGB CONC 32.4 g/dL (31-35); MEAN CORPUSCULAR VOLUME 87.9 fL (81-99); MONOCYTES % 6.1 % (4.4-11.3); NEUTROPHILS # (AUTO) 12.9 (2.1-6.9); NEUTROPHILS % 78.7 % (38.7-80.0); PLATELET COUNT 108 x10e3/uL (140-360); RED BLOOD COUNT 4.39 x10e6/uL (4.3-5.7); RED CELL DISTRIBUTION WIDTH 15.2 % (11.7-14.4)
[2019-01-28 03:28] LABS: ALBUMIN 3.7 g/dL (3.5-5.0); ALBUMIN/GLOBULIN RATIO 0.9 (0.8-2.0); ANION GAP 22.1 mmol/L (8-16); CALCIUM 9.1 mg/dL (8.4-10.2); POTASSIUM 4.1 mmol/L (3.5-5.1)
[2019-01-28 03:33] LABS: CREATINE KINASE 311 IU/L (30-200)
[2019-01-28] MEDS ORDERED: AZITHROMYCIN 500MG/NS 250 ML 250 ML IV STA (04:02)
--- NOTE | 2019-01-28 04:21 | Diagnostic Imaging Report ---
EXAMINATION: CHEST SINGLE (PORTABLE) INDICATION: Fever COMPARISON: Chest radiograph 06/06/2018; chest CT 04/27/2018 FINDINGS: AP view TUBES and LINES: None. LUNGS/PLEURA: Right lung well inflated. Chronic left hemidiaphragm eventration and hazy opacity in the left lower lung. Prominent central pulmonary vasculature. HEART AND MEDIASTINUM: Cardiac size is mildly enlarged. Aortic arch calcifications. BONES AND SOFT TISSUES: Sternotomy wires, the superior sternotomy wire is fractured.. Soft tissues are unremarkable. UPPER ABDOMEN: No free air under the diaphragm. IMPRESSION: Chronic left hemidiaphragm eventration and hazy opacity in the left lower lung which is likely atelectasis, although underlying pneumonia is possible. Cardiomegaly and pulmonary vascular congestion. Signed by: Alexx Gaffney DO on 01/28/2019 4:17 AM
[2019-01-28 05:20] LABS: BILIRUBIN,URINE NEGATIVE (NEGATIVE); CLARITY,URINE CLEAR (CLEAR); COLOR,URINE YELLOW (YELLOW); KETONES,URINE NEGATIVE (NEGATIVE); LEUKOCYTE ESTERASE ,URINE NEGATIVE (NEGATIVE); NITRITE,URINE NEGATIVE (NEGATIVE); PROTEIN,URINE DIPSTICK 2+ (NEGATIVE); URINE UROBILINOGEN 0.2 mg/dL (0.2 - 1)
[2019-01-28] MEDS ORDERED: SODIUM CHLORIDE 0.9% 1000ML 1,000 ML IV SCH (05:30)
[2019-01-28] MEDS ORDERED: IBUPROFEN 600 MG TAB PO STA (05:30)
[2019-01-28] MEDS ORDERED: DEXTROSE 50% SYRINGE 50 ML IV PRN (05:30)
[2019-01-28] MEDS: ALBUTEROL SULF 0.083% NEB SOLN 3 ML NEB NEB SCH ×5 (05:30→19:30)
[2019-01-28] MEDS: CEFEPIME 2 GM/NS 0.9% 100 ML 100 ML IV SCH ×2 (05:36→17:10)
[2019-01-28] MEDS: AZITHROMYCIN 500MG/SOD CHL 0.9% 250ML BAG IV SCH (05:36)
[2019-01-28] MEDS ORDERED: IBUPROFEN 600 MG TAB ONE (05:37)
[2019-01-28 05:38] LABS: BACTERIA,URINE MODERATE /HPF; EPITHELIAL CELLS,URINE FEW /LPF
[2019-01-28] MEDS: IPRATROPIUM BROMIDE 0.02% 2.5 ML NEB NEB SCH ×5 (06:00→23:10)
--- NOTE | 2019-01-28 06:04 | NUR ---
RECEIVED PATIENT FROM ED AT THIS TIME. PATIENT TRANSFERRED TO BED BY STAFF WITH SLIDE BOARD. OE @ 3L VIA NC. R AV 18G IV ASYMPTOMATIC, INTACT, AND PATENT, RUNNING NS @ 125 ML/HR. NO PAIN REPORTED. LUNG SOUNDS DIMINISHED. LARGE BRUISE NOTED TO L UPPER CHEST, PATIENT REPORTS IT IS FROM HIS FALL AT HOME 2 WEEKS AGO. BLE PITTING EDEMA +2, MORE PRONOUNCED IN RLE. LAST BM YESTERDAY, 01/27/19. BOWEL SOUNDS ACTIVE. NO S&S OF DISTRESS NOTED. BED LOCKED IN LOWEST POSITION, SIDE RAILS UPX2, CALL LIGHT IN REACH.
--- NOTE | 2019-01-28 07:10 | NUR ---
RCD PT AT BED PT IS ALERT AND ORIENTED AND PT RESTING ON BED IV PATENT BY SALINE FLUSH PATENT BED LOW AND LOCKED CALL LIGHT IN REACH
[2019-01-28] MEDS: INSULIN REGULAR, HUMAN 100 UNIT/1 ML 3ML VIAL SQ SCH ×4 (07:30→20:37)
[2019-01-28] MEDS: ACETAMINOPHEN 325 MG TAB PO PRN ×3 (08:04→19:55)
[2019-01-28] MEDS: METOPROLOL TARTRATE 25 MG TAB PO SCH ×2 (09:00→17:00)
[2019-01-28] MEDS: ASPIRIN 81 MG CHEW TAB PO SCH (09:00)
[2019-01-28] MEDS: LACTOBACILLUS ACIDOPHILUS CAPSULE PO SCH ×2 (09:00→17:00)
[2019-01-28 10:35] LABS: INR 1.96
[2019-01-28 11:41] LABS: CREATINE KINASE MB 4.7 ng/mL (0-5.0)
--- NOTE | 2019-01-28 13:24 | NUR ---
pulmonary [id number] thanks
[2019-01-28] MEDS: INSULIN GLARGINE 100 UNITS/ML VIAL SQ SCH ×2 (14:00→20:38)
--- NOTE | 2019-01-28 14:32 | History and Physical ---
PRIMARY CARE PHYSICIAN: Dr. Jacobson with [facility] [place]. CHIEF COMPLAINT: Fever and chills. HISTORY OF PRESENT ILLNESS: This is an 78-year-old male with past medical history of hypertension, diabetes, COPD, atrial fibrillation, CAD, CHF, HLD, and CKD 3, presented to the ER with complaints of fever that started around 1 a.m. He reports fever of 102 degrees Fahrenheit, continued to worsen, so presented to the ER for further evaluation. He reports falling from his chair about a week ago, so has a left-sided bruising, but states no chest pain. No shortness of breath. No cough. No nausea, vomiting, or diaphoresis. Upon arrival to the ER around 3 o'clock, his temperature was 102.0, was given NSAIDs. Cultures were drawn and started on antibiotics and admitted for further management. PAST MEDICAL HISTORY: 1. Hypertension. 2. Diabetes type 2. 3. COPD. 4. Atrial fibrillation. 5. CAD with quadruple bypass. 6. CHF. 7. High cholesterol. 8. CKD, stage 3. PAST SURGICAL HISTORY: 1. CABG. 2. Tonsillectomy. FAMILY MEDICAL HISTORY: Reports both mother and father had hypertension, diabetes, and heart disease. SOCIAL HISTORY: Denies any tobacco, alcohol, or illicit drug use. Lives at home. ALLERGIES: EXENATIDE, QUINAPRIL,VANCOMYCIN, AND SITAGLIPTIN. REVIEW OF SYSTEMS: GENERAL: Fatigue and chills with fever. HEENT: Normal. No head trauma. LUNGS: Decreased breath sounds. CARDIOVASCULAR: No chest pain. GI: No nausea or vomiting. NEUROLOGIC: Alert and oriented. MUSCULOSKELETAL: Lower extremity edema. SKIN: Rash noted on the lower extremities. PHYSICAL ASSESSMENT: VITAL SIGNS: Temperature 98.4, pulse is 85, respirations 18, blood pressure 97/40, and pulse ox is 90 on 2 L of O2. GENERAL: In bed with no acute distress. HEENT: Normocephalic and atraumatic. PERRLA. LUNGS: Decreased breath sounds. CARDIOVASCULAR: Regular rate and rhythm. GI: Soft and nontender. Obese. NEURO: Alert, awake, and oriented x3. MUSCULOSKELETAL: Active ROM with +2 edema in the lower extremities. SKIN: Dry and bruising noted in the left upper chest due to recent fall. LABORATORY DATA: WBC 16.33, hemoglobin 12.5, hematocrit 38.6, and platelet 108. Sodium 139, potassium 4.1, carbon dioxide 26, creatinine 2.0, BUN is 31, and glucose 319. Lactic acid 51.8 and 33.6. Troponin x2 negative. INR 1.96. Urine clear, negative leukocyte esterase with wbc's 6-10,000 and moderate bacteria. Influenza A and B were negative. Blood and urine culture are pending. IMAGING DATA: Chest x-ray shows possible underlying pneumonia and cardiomegaly with pulmonary vascular congestion. IMPRESSION AND PLAN: 1. Sepsis on admission due to community-acquired pneumonia. Cultures have been sent, lactic acid elevated, he was given IV fluids and IV antibiotics. Neb treatments q.4 hours. Pulmonary consulted due to his chronic pulmonary history. 2. Hypertension, now hypotensive, likely due to sepsis. 3. Diabetes type 2. Last hemoglobin A1c was 9.1. Accu-Chek before meals and at bedtime with sliding scale insulin. 4. History of chronic obstructive pulmonary disease. We will continue with neb treatment, stable with no exacerbation. 5. History of atrial fibrillation. Continue metoprolol and Coumadin. INR is 1.96. 6. History of coronary artery disease. Continue home medications. 7. History of congestive heart failure, likely systolic. We will continue with home medications. 8. Thrombocytopenia, likely due to infection. We will continue to monitor. 9. History of hyperlipidemia. We will continue statin. 10. Acute kidney injury with a history of chronic kidney disease 3 and baseline creatinine is 1.8, currently 2.0. We will repeat labs in a.m. PLAN: We will continue IV antibiotics, supportive therapy. Await on cultures and further recommendations to follow. Dictated by EVELYNE Boone Gretchen Loco MD MY/MODL /[id number]
[2019-01-28] MEDS: GABAPENTIN 300 MG CAP PO SCH (17:00)
[2019-01-28] MEDS ORDERED: WARFARIN SOD 2.5 MG TAB PO SCH (17:00)
--- NOTE | 2019-01-28 18:28 | Consultation ---
DATE OF CONSULTATION: 01/28/2019 Pulmonary Medicine Consult PRIMARY CARE PHYSICIAN: Dr. Jacobson, [facility]. REASON FOR REFERRAL: Shortness of breath. HISTORY OF PRESENT ILLNESS: Mr. Souza is a pleasant 78-year-old gentleman with shortness of breath. The patient presented to [facility] on January 28, 2019 with fevers and chills. Per ER note, fever to 102 degrees Fahrenheit. The patient denies any phlegm expectoration or phlegm production. Mild shortness of breath. He came to the emergency room. In the emergency room, heart rate was 115, blood pressure 176/65, 102 degree temperature, and 95% on room air saturation. Chest x-ray was done demonstrating increased venous congestion versus pneumonitis, continued left hemidiaphragm elevation. At this point, he has elected for hospitalization. The white count was 16,000. I am consulted. PAST MEDICAL HISTORY: CABG, hypertension, diabetes, obesity, chronic venous edema in the legs, chronic left hemidiaphragm elevation, osteoarthritis, peripheral vascular disease, CKD, and cor pulmonale. MEDICATIONS: Medication list reviewed per the chart record. Specifically, he is on no pulmonary medicines that he states including no inhalers. ALLERGIES: SITAGLIPTIN, EXENATIDE, VANCOMYCIN, AND QUINAPRIL. SOCIAL HISTORY: No smoking. No drinking. 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 FAMILY HISTORY: Noncontributory. REVIEW OF SYSTEMS: GENERAL: No weight loss. HENT: No mouth ulcers. OPHTHALMOLOGIC: No double vision. ENDOCRINE: No thyroid disease known. PULMONARY: No hemoptysis. CARDIAC: No recent [place]. GI: No constipation. : No blood in urine. DERMATOLOGIC: No rash. MUSCULOSKELETAL: Mild arthritis. NEUROLOGIC: No seizures. PHYSICAL EXAMINATION: VITAL SIGNS: Afebrile, vital signs noted per the chart record. GENERAL: In no acute distress, alert and calm. HEENT: Normocephalic and atraumatic. NECK: Supple. Large midline. LUNGS: Bilateral air entry, decreased breath sounds throughout, especially at the left base. CARDIOVASCULAR: S1 and S2. No murmurs, rubs, or gallops. ABDOMEN: Soft and obese. EXTREMITIES: No clubbing. No cyanosis. There is 2+ edema. INTEGUMENT: No rash. No purpura. Mild venous stasis changes. LABORATORY DATA: 31 BUN, 2.0 creatinine, and 26 bicarbonate. 1.96 INR. 16 white count, 39 hematocrit, and 108 platelets. IMPRESSION AND PLAN: 1. Pneumonia. 2. Chronic respiratory failure, cor pulmonale. 3. Left hemidiaphragmatic elevation. 4. Severe sleep apnea, reported 17% oxygen level during sleep. 5. Coronary artery disease, status post coronary artery bypass grafting long time ago. 6. Hypertension. 7. Diabetes. 8. Osteoarthritis. 9. Chronic kidney disease. 10. Warfarin use. Antibiotics. Trial of some diuretic, as he is on metolazone twice a week and Lasix daily he says at home. I encouraged bring in his home CPAP device, as he does not want to use our hospital device. Continue oxygen supplement. Follow up closely. We will continue close care. Thank you very much, Dr. Loco, for this consult. Please call for any questions. Thank you very much, Dr. Jacobson as well. MD LONNIE Roberto/ZORAIDA /[id number]
--- NOTE | 2019-01-28 18:40 | NUR ---
PT RESTING ON BED BED SIDE REPORT GIVEN TO ONCOMING NURSE
[2019-01-28 19:29] LABS: CREATINE KINASE MB 7.3 ng/mL (0-5.0)
--- NOTE | 2019-01-28 19:48 | NUR ---
Dr. Loco paged for trop of 1.1 and b. culture positive for gram neg. baccili, waiting for call back.
--- NOTE | 2019-01-28 20:06 | NUR ---
patient trop. 1.1 , patient denies chest pain, ekg was ordered, Dr. Loco was paged.
[2019-01-28] MEDS: TERAZOSIN HCL 5 MG CAP PO SCH (20:35)
[2019-01-28] MEDS ORDERED: ATORVASTATIN 20 MG TAB PO SCH (21:00)
--- NOTE | 2019-01-28 21:02 | NUR ---
LESLIE Manzo called back, made aware of ekg results, and the troponin levels, and temp. 101.[address] Malcolm, and also repeat bld culture.
--- NOTE | 2019-01-28 21:10 | NUR ---
Spoke to Dr. Malcolm about consult and troponin levels, including ekg, states will see the patient in am, no new orders
[2019-01-28] MEDS ORDERED: HALOPERIDOL LACTATE 5 MG/ML VIAL ONE (23:54)
[2019-01-29] VITALS (8 sets, daily range): BP systolic 102–157; BP diastolic 50–73
[2019-01-29] MEDS: HALOPERIDOL LACTATE 5 MG/ML VIAL IV PRN ×2 (00:44→07:05)
[2019-01-29] MEDS: ALBUTEROL SULF 0.083% NEB SOLN 3 ML NEB NEB SCH ×5 (02:55→19:00)
[2019-01-29] MEDS: IPRATROPIUM BROMIDE 0.02% 2.5 ML NEB NEB SCH ×5 (02:55→19:00)
--- NOTE | 2019-01-29 05:10 | NUR ---
Charge nurse spoke to Dr. Lee and Claudy for agitation, and received an order for eliane ngo. Addendum: 01/29/19 at 0511 by Demarco Parekh RN mykel time: [id number]
[2019-01-29] MEDS: CEFEPIME 2 GM/NS 0.9% 100 ML 100 ML IV SCH ×2 (05:30→17:14)
--- NOTE | 2019-01-29 06:28 | Diagnostic Imaging Report ---
EXAMINATION: CHEST SINGLE (PORTABLE) INDICATION: Pneumonia COMPARISON: Chest radiograph 01/28/2019, chest CT 04/27/2018, chest radiograph 04/26/2018 FINDINGS: AP view TUBES and LINES: None. LUNGS/PLEURA: Right lung well inflated. Chronic left hemidiaphragm eventration and hazy opacity in the left lower lung. Prominent central pulmonary vasculature. HEART AND MEDIASTINUM: Cardiac size is mildly enlarged. Aortic arch calcifications. BONES AND SOFT TISSUES: Sternotomy wires, the superior sternotomy wire is fractured.. Soft tissues are unremarkable. UPPER ABDOMEN: No free air under the diaphragm. IMPRESSION: Chronic left hemidiaphragm eventration and hazy opacity in the left lower lung which is likely atelectasis, unchanged compared to 04/27/[address] Underlying pneumonia is possible. Cardiomegaly and pulmonary vascular congestion. Signed by: Alexx Gaffney DO on 01/29/2019 6:25 AM
[2019-01-29] MEDS: AZITHROMYCIN 500MG/SOD CHL 0.9% 250ML BAG IV SCH (06:35)
--- NOTE | 2019-01-29 06:55 | NUR ---
patient endorsed to next shift for continuity of care.
[2019-01-29] MEDS: ACETAMINOPHEN 325 MG TAB PO PRN ×4 (07:15→21:59)
[2019-01-29] MEDS: INSULIN REGULAR, HUMAN 100 UNIT/1 ML 3ML VIAL SQ SCH ×4 (07:30→21:30)
--- NOTE | 2019-01-29 07:30 | NUR ---
RCD PT AT BED PT IS RESTLESS FEVER 102.4 F ,TYLENOL PO GIVEN AND ALLOW THE PT SIT ON CHAIR AND MAKE THE PT COMFORTABLE IV PATENT BED LOW AND LOCKED CALL LIGHT IN REACH
[2019-01-29 07:32] LABS: BASOPHILS % 0.2 % (0.0-1.0); EOSINOPHILS # (AUTO) 0.7 (0.0-0.4); EOSINOPHILS % 6.7 % (0.0-6.0); HEMOGLOBIN 9.9 g/dL (14.0-18.0); LYMPHOCYTES # (AUTO) 0.7 (1.0-3.2); LYMPHOCYTES % 6.8 % (18.0-39.1); MEAN CORPUSCULAR HEMOGLOBIN 28.1 pg (28-32); MEAN CORPUSCULAR VOLUME 93.8 fL (81-99); MONOCYTES # (AUTO) 0.7 (0.2-0.8); MONOCYTES % 7.2 % (4.4-11.3); NEUTROPHILS # (AUTO) 7.8 (2.1-6.9); NEUTROPHILS % 78.5 % (38.7-80.0); PLATELET COUNT 55 x10e3/uL (140-360); RED BLOOD COUNT 3.52 x10e6/uL (4.3-5.7); RED CELL DISTRIBUTION WIDTH 16.2 % (11.7-14.4)
[2019-01-29 07:48] LABS: ALBUMIN 2.7 g/dL (3.5-5.0); ALBUMIN/GLOBULIN RATIO 0.9 (0.8-2.0); ANION GAP 15.2 mmol/L (8-16); CALCIUM 7.9 mg/dL (8.4-10.2); CREATININE, SERUM 1.93 mg/dL (0.72-1.25); POTASSIUM 4.2 mmol/L (3.5-5.1)
[2019-01-29 08:12] LABS: INR 1.83; PROTHROMBIN TIME 21.8 seconds (11.9-14.5)
--- NOTE | 2019-01-29 08:30 | NUR ---
PAGED DR ADAMS TO NOTIFY THE ELEVATED TROPONIN LEVEL
--- NOTE | 2019-01-29 08:45 | NUR ---
DR FUNG RETURNED CALL AND NOTIFIED THE CRITICAL LAB HE SAID HE COMING TO SEE THE PT
[2019-01-29] MEDS: ASPIRIN 81 MG CHEW TAB PO SCH (08:58)
[2019-01-29] MEDS: METOPROLOL TARTRATE 25 MG TAB PO SCH ×2 (08:58→17:00)
[2019-01-29] MEDS: LACTOBACILLUS ACIDOPHILUS CAPSULE PO SCH ×2 (08:59→17:00)
[2019-01-29] MEDS: GABAPENTIN 300 MG CAP PO SCH ×2 (08:59→17:00)
[2019-01-29] MEDS: INSULIN GLARGINE 100 UNITS/ML VIAL SQ SCH ×2 (09:00→21:30)
[2019-01-29] MEDS ORDERED: FUROSEMIDE 40 MG TAB PO SCH (09:00)
--- NOTE | 2019-01-29 09:00 | NUR ---
PT RESTING ON CHAIR ATE THE BREAKFAST 75%,
--- NOTE | 2019-01-29 10:30 | NUR ---
PT RESTING ON BED FAMILY AT BED SIDE BED LOWN AND LOCKED CALL LIGHT IN REACH
[2019-01-29] MEDS: ENOXAPARIN SODIUM INJ 100 MG/ML SYR SC SCH (13:00)
[2019-01-29] MEDS ORDERED: SODIUM CHLORIDE 0.9% 1000ML 1,000 ML IV SCH (13:15)
[2019-01-29] MEDS ORDERED: CLINDAMYCIN 600MG / 50ML 50 ML IV SCH (14:00)
--- NOTE | 2019-01-29 15:22 | Consultation ---
DATE OF CONSULTATION: 01/29/2019 Cardiology consultation REASON FOR CONSULTATION: Coronary artery disease with elevated cardiac biomarkers. CONSULTING PHYSICIAN: Seth Garcia MD, Interventional Cardiology. HISTORY OF PRESENT ILLNESS: Mr. Souza is an 78-year-old man with a history of diabetes mellitus type 2, hypertension, dyslipidemia, lymphedema, atrial fibrillation, morbid obesity, cor pulmonale, and history of recurrent right leg cellulitis, who presents to [facility] with worsening shortness of breath. He was noted to have pneumonia and sepsis for which antibiotics were initiated and hydration started. Due to worsening leg edema yesterday, fluids were discontinued. He has been adhering to medications at home including vitamin K antagonist. He was noted to have elevated cardiac biomarkers, ruling in for non-STEMI versus a type 2 [place] with serial troponins. His EKG shows sinus rhythm with nonspecific repolarization abnormality. His CK is elevated with normal CK-MB index. He recently sustained a mechanical fall with blunt chest trauma to the left anterior chest resulting in a bruise. He denies any loss of consciousness, syncope, or lightheadedness recently. He denies any current or recent chest discomfort. REVIEW OF SYSTEMS: A 12-system review is negative except for as noted above. PAST MEDICAL HISTORY: As per HPI. SOCIAL HISTORY: Negative for active smoking, alcohol, or drugs. FAMILY HISTORY: Noncontributory. PHYSICAL EXAMINATION: VITAL SIGNS: Temperature 97.4, heart rate 76, respiratory rate 18, blood pressure 118/56, and O2 saturation 96%. BMI 41.8. GENERAL: In no acute distress, alert. NECK: No JVD. CHEST: Clear to auscultation bilaterally. CARDIOVASCULAR: Regular rate and rhythm. Normal S1 and S2. No S3 or S4. No murmurs or rubs. ABDOMEN: Soft, nontender. Bowel sounds positive. EXTREMITIES: With edema 2+, erythema to right leg. SKIN: Warm, dry with ecchymosis to the left anterior chest. HEENT: Moist mucosa. Pale. LABORATORY DATA: Studies reviewed. EKG as previously described. Sodium 139, potassium 4.2, chloride 101, bicarbonate 27, BUN 31, creatinine 1.9, and glucose 161. White blood cells 9.9, hemoglobin 9.9, and platelets 55. INR 1.8 and PTT 21.8. AST 60, ALT 29, total bilirubin 0.8, and alkaline phosphatase 42. ASSESSMENT: An 78-year-old man, presents with pneumonia, left leg cellulitis, sepsis, type 2 myocardial infarction versus non-ST elevation myocardial infarction, coronary artery disease with history of aortocoronary bypass approximately six years ago with no recent angiogram reported, hypertension, diabetes, dyslipidemia, anemia, thrombocytopenia, and chronic kidney disease with possible acute kidney injury component, rhabdomyolysis, and status post mechanical fall. RECOMMENDATIONS: 1. I will titrate diuretics and add gentle fluids to increase renal output and clearance in the setting of decrease in CK and underlying CKD. 2. Switch warfarin off for now to Lovenox bridge to allow option for invasive procedures should the decision be made proceed with such. 3. Continue aspirin, however, hold if platelets drop less than 50,000. 4. Continue rest of cardiovascular medications including beta-serafin and hold statin for now given elevated CK. 5. Discussed with patient possibility for coronary angiography and possible intervention later in this admission once improved from sepsis standpoint and confirmed kidney stability as well as confirming count stability. 6. Consider workup for anemia and thrombocytopenia. 7. Guarded prognosis. 8. Echo ordered. I thank, Dr. Loco, for the opportunity to participate in the care of this patient. Please feel free to call with any questions. Seth Garcia MD AFCecy/ZORAIDA /[id number]
--- NOTE | 2019-01-29 15:40 | NUR ---
PULMONARY MEDICINE DATE: 01/29/2019 SUBJECTIVE: SOME confusion yesterday. agitated features. safety concerns, so after i was called emergently i ordered haldol today at bedside and doesn't want medication given, but prefers the patient get mechanically restrained in bed-- i discussed with her and primary team that i would back off this issue and defer to others. also hospital bipap was given, originally refused by the patient REVIEW OF SYSTEMS: no rash, no bleeding PHYSICAL EXAMINATION: VITAL SIGNS: vital signs noted per the chart record. GENERAL: mildly sleepy, NAD HEENT: Normocephalic, atraumatic. NECK: Supple. Large midline. LUNGS: Bilateral air entry, decreased breath sounds especially at the left base. CARDIOVASCULAR: S1 and S2. No murmurs, rubs, or gallops. ABDOMEN: Soft and obese. EXTREMITIES: No clubbing. No cyanosis. 2+ edema. INTEGUMENT: No rash. No purpura. Mild venous stasis changes. LABORATORY DATA: bun 31, cr 1.93, hco3 27. k 4.2 wbc 10, hct 33, plt 55, inr 1.83 IMPRESSION AND PLAN: 1. Pneumonia. 2. Chronic respiratory failure, cor pulmonale. 3. Left hemidiaphragmatic elevation. 4. Severe sleep apnea, reported 17% oxygen level during sleep. 5. Coronary artery disease, status post coronary artery bypass grafting long time ago. 6. Hypertension. 7. Diabetes. 8. Osteoarthritis. 9. Chronic kidney disease. 10. Warfarin use. 11. low platelets 12. encephalopathy, toxic/metabolic Antibiotics. Some diuretics- he is on metolazone twice a week and Lasix daily at home. brought his home CPAP device, vs hospital device intermittent ABG PRN Psychiatric care per others Continue oxygen supplement. Thank you very much, Dr. Loco, for this consult. Please call for any questions.
--- NOTE | 2019-01-29 16:02 | Progress Note ---
DATE: 01/29/2019 CHIEF COMPLAINT: Fever and chills. SUBJECTIVE: Noted to have fever and chills throughout the night. He denies any chest pain, shortness of breath, cough, nausea, vomiting, abdominal pain, or chest pain. Blood culture was positive for gram-negative rods. PHYSICAL EXAMINATION: VITAL SIGNS: Temperature 97.4, pulse is 76, respirations 18, blood pressure 118/56, and pulse ox is 96% on 2 liters of O2. GENERAL: Fatigue with chills. HEENT: Normocephalic and atraumatic. LUNGS: Wheezing noted on bilateral lower lobes. CARDIOVASCULAR: Regular rate and rhythm. ABDOMEN: Soft and nontender. Obese. NEUROLOGIC: Alert, awake, and oriented x3. MUSCULOSKELETAL: Active ROM. Right lower extremity redness and edema greater than left. SKIN: Left upper chest bruising noted, status post mechanical fall two weeks ago, right lower extremity edema and redness also noted. LABORATORY DATA: WBC 9.95, hemoglobin 9.9, hematocrit 33.0, and platelet is 55. Sodium is 139, potassium 4.2, CO2 of 27, BUN is 31, creatinine is 1.93, estimated GFR is 34, blood sugar 161, CK is 1780, troponin is 1.252, and INR is 1.83. Microbiology, urine shows gram-negative rods. Blood culture also gram-negative rods, pending repeat blood cultures. IMPRESSION AND PLAN: 1. Severe sepsis on admission due to community-acquired pneumonia. Blood culture was positive for gram-negative rods. Lactic acid elevated. We will continue on IV fluids and IV antibiotics and neb treatments every 4 hours. Repeat blood cultures pending. We will consult ID for recurrent fever. 2. Elevated troponin, likely due to chills and fever. Cardiology has been consulted, echocardiogram ordered. 3. Rhabdomyolysis, likely due to fever and chills. We will start with light IV fluid hydration at 50 mL per hour and trend CK levels. 4. Hypertension, now hypotensive, likely due to sepsis. We will monitor. 5. Diabetes type 2. Continue sliding scale insulin and Lantus 40 units b.i.d. 6. History of chronic obstructive pulmonary disease. Continue nebs and antibiotics. 7. History of atrial fibrillation. Continue beta blockers for rate control. Coumadin has been held by Cardiology for a possible cardiac workup and is on Lovenox instead. 8. History of coronary artery disease. Continue metoprolol and aspirin. We will hold statin for possible cause of rhabdomyolysis. 9. Systolic congestive heart failure. We will continue beta serafin and Lasix. 10. Thrombocytopenia, likely due to infection. Platelet count is 55. We will monitor closely. No active bleeding noted. 11. History of hyperlipidemia. We will hold statin for now due to elevated CK. 12. Acute kidney injury with a history of chronic kidney disease 3. Creatinine is 1.93 today. We will continue to monitor closely. 13. Right lower extremity cellulitis. We will start clindamycin for possible cellulitis. 14. Mechanical fall with left upper chest bruising. We will monitor site. Dictated by EVELYNE Boone Gretchen Loco MD MY/MODL /[id number]
[2019-01-29] MEDS: FUROSEMIDE 40 MG TAB PO SCH (17:15)
[2019-01-29 17:23] LABS: ALBUMIN 2.5 g/dL (3.5-5.0); ALBUMIN/GLOBULIN RATIO 0.8 (0.8-2.0); ANION GAP 12.8 mmol/L (8-16); CALCIUM 7.7 mg/dL (8.4-10.2); CREATININE, SERUM 1.93 mg/dL (0.72-1.25); POTASSIUM 3.8 mmol/L (3.5-5.1)
[2019-01-29 17:32] LABS: CREATINE KINASE MB 10.2 ng/mL (0-5.0)
[2019-01-29] MEDS: LINEZOLID 600 MG/D5W 300ML 300 ML IV SCH (18:00)
--- NOTE | 2019-01-29 18:23 | Consultation ---
DATE OF CONSULTATION: 01/29/2019 This is Infectious Disease cross cover for Dr. Nelson. REASON FOR CONSULTATION: To evaluate and assist in treating the patient with respiratory infection. Information is gathered from the current medical record. I interviewed the patient at the bedside. HISTORY OF PRESENT ILLNESS: He is an 78-year-old male with diabetes mellitus, hypertension, and coronary artery disease. He has had coronary artery bypass surgery. There is history of chronic edema of his legs, osteoarthritis, and peripheral vascular disease; he has history of chronic kidney disease and cor pulmonale. The patient reports he developed cough and congestion about 4 days ago. The cough is nonproductive. He has no sore throat and no pleuritic pain. He had a subjective sense of fevers. He also reports that on the day before presentation, he noticed redness of his right lower extremity. In the emergency room, it was reported that he had a temperature of 102 degrees Fahrenheit and a pulse rate of 115. His CBC showed a white count of 16,000. He had a urinalysis, which showed a clear urine with negative nitrite, negative esterase, 6 to 10 wbc's, 6 to 10 rbc's, and moderate bacteria. His urine and blood cultures from January 28 are all growing gram-negative rods. At the time of this evaluation, he is on treatment with cefepime and clindamycin. PAST MEDICAL HISTORY: His medical history is as reported above. He denies any history of CVA. No history of prostate disease. PAST SURGICAL HISTORY: Besides CABG, he has had no other surgeries. SOCIAL HISTORY: He never smoked or drank. He denies other forms of recreational drug use. FAMILY HISTORY: Significant for diabetes and hypertension on both sides of the family. ALLERGIES: THERE IS REPORT OF ALLERGIES TO EXENATIDE, QUINAPRIL, SITAGLIPTIN, AND VANCOMYCIN. MEDICATIONS: As reported earlier, he is on treatment with clindamycin and cefepime. The rest of his medications are per the medication administration report. REVIEW OF SYSTEMS: The patient is alert and responsive. His sensorium is clear. He appears ill, somewhat toxic, otherwise in no acute distress. He has a productive sounding cough. PHYSICAL EXAMINATION: VITAL SIGNS: At presentation, he had a temperature of 102 degrees Fahrenheit. Today, he has had temperature up to 102 degrees Fahrenheit, pulse rate up to 103, respiratory rate up to 28, and blood pressure currently 110/50. GENERAL: He is obese. HEENT: He has no pallor. No obvious icterus. No oropharyngeal lesions. There is facial flushing. NECK: Supple. CHEST: Symmetric. LUNGS: Breath sounds are coarse in the lung [place]. HEART: Sounds are regular without a significant murmur. ABDOMEN: Obese, soft, and nontender with normal bowel sounds. EXTREMITIES: There is pitting edema of his lower extremities with acute erythema and warmth of the right lower extremity. No obvious ulcers. LABORATORY DATA: His white count on January 28, 16.3, currently 9.9, hemoglobin 9.9 down from 12.5, platelet count 55, down from 108. Differentials from his white count 78% neutrophils. His serum creatinine 2.0 at presentation, 1.9 today. A chest x-ray on January 28, showed chronic left hemidiaphragm eventration and hazy opacity at the left lower lung, likely due to atelectasis, underlying pneumonia could not be ruled out. A chest x-ray today reported with similar findings. IMPRESSION: This 78-year-old male presented with signs and symptoms consistent with sepsis. He has a gram-negative urinary tract infection and septicemia. I also suspect respiratory infection, possibly pneumonia. He has acute cellulitis of his right lower extremity. There is report of allergy to vancomycin. I suggest we start him on Zyvox, which will cover possible respiratory infection as well as his cellulitis. Continue treatment with discontinue cefepime and start the patient on meropenem, and monitor clinical response to treatment. I have discussed the findings and treatment with the patient at the bedside. I will discuss the patient with the primary physicians, whom I thank for the consult and opportunity to participate in the patient's care. MD CRISTIN Chan/ZORAIDA /[id number]
--- NOTE | 2019-01-29 19:15 | NUR ---
PT RESTING ON BED BED SIDE REPORT GIVEN TO ONCOMING NURSE
[2019-01-29] MEDS: MEROPENEM 500MG/ NS 50ML 50 ML IV SCH (21:33)
[2019-01-29] MEDS: TERAZOSIN HCL 5 MG CAP PO SCH (21:33)
[2019-01-30] VITALS (20 sets, daily range): BP systolic 90–150; BP diastolic 51–81
[2019-01-30] MEDS: ALBUTEROL SULF 0.083% NEB SOLN 3 ML NEB NEB SCH ×7 (00:15→23:10)
[2019-01-30] MEDS: IPRATROPIUM BROMIDE 0.02% 2.5 ML NEB NEB SCH ×7 (00:15→23:10)
[2019-01-30] MEDS: ACETAMINOPHEN 325 MG TAB PO PRN (04:18)
[2019-01-30] MEDS: MEROPENEM 500MG/ NS 50ML 50 ML IV SCH ×3 (05:00→21:49)
[2019-01-30 05:13] LABS: HEMATOCRIT 30.9 % (38.2-49.6); HEMOGLOBIN 9.7 g/dL (14.0-18.0); MEAN CORPUSCULAR HGB CONC 31.4 g/dL (31-35); PLATELET COUNT 70 x10e3/uL (140-360); RED BLOOD COUNT 3.47 x10e6/uL (4.3-5.7)
[2019-01-30 05:37] LABS: ALBUMIN 2.6 g/dL (3.5-5.0); ALBUMIN/GLOBULIN RATIO 0.8 (0.8-2.0); ANION GAP 14.1 mmol/L (8-16); CALCIUM 7.7 mg/dL (8.4-10.2); CREATININE, SERUM 2.1 mg/dL (0.72-1.25); POTASSIUM 4.1 mmol/L (3.5-5.1)
[2019-01-30] MEDS: FUROSEMIDE 40 MG TAB PO SCH (05:48)
[2019-01-30] MEDS: LINEZOLID 600 MG/D5W 300ML 300 ML IV SCH (05:48)
[2019-01-30] MEDS: INSULIN REGULAR, HUMAN 100 UNIT/1 ML 3ML VIAL SQ SCH ×4 (07:30→21:53)
--- NOTE | 2019-01-30 08:22 | NUR ---
PATIENT'S PULSE OXYGEN=76%, PATIENT'S TOLD THAT EMERGENCY PEOPLE WILL BE COMING TO TREAT HER 'S LOW OXYGEN LEVEL,RAPID RESPONSE CALLED, DR. ALFARO (ER MD), ICE NURSES AND ER NURSES ENTERED ROOM, AT 0830 MEDICATIONS ADMINISTERED B Y ICE AND ER NURSES.
--- NOTE | 2019-01-30 08:25 | NUR ---
ASSESSMENT: Spiritual concern Neurosurgeon responded to Rapid. Pt's and machine i engraver in waiting area. Provided calming pastoral presence, hospitality and information on how to contact printed circuit boards plasma etcher if needed. Will follow as able. SAMANTA CLAYTON Neurosurgeon Spiritual Care Department O: [phone] Pager: [phone] ([phone] number calling from)
[2019-01-30] MEDS ORDERED: ETOMIDATE 2 MG/ML 10 ML INJ IV STA (08:26)
[2019-01-30] MEDS: ASPIRIN 81 MG CHEW TAB PO SCH (09:00)
[2019-01-30] MEDS: GABAPENTIN 300 MG CAP PO SCH ×2 (09:00→17:00)
[2019-01-30] MEDS ORDERED: MIDAZOLAM HCL 2 MG/2 ML VIAL IV ONE (09:00)
[2019-01-30] MEDS: LACTOBACILLUS ACIDOPHILUS CAPSULE PO SCH ×2 (09:00→17:00)
[2019-01-30] MEDS: METOPROLOL TARTRATE 25 MG TAB PO SCH ×2 (09:00→17:00)
[2019-01-30] MEDS: INSULIN GLARGINE 100 UNITS/ML VIAL SQ SCH ×2 (09:00→21:53)
[2019-01-30] MEDS ORDERED: SUCCINYLCHOLINE CHLORIDE 20 MG/ML 10ML VIAL IV ONE (09:00)
[2019-01-30] MEDS ORDERED: SODIUM CHLORIDE 0.9% IV ONE (09:00)
--- NOTE | 2019-01-30 09:07 | Diagnostic Imaging Report ---
EXAMINATION: CHEST SINGLE (PORTABLE) INDICATION: Shortness of breath COMPARISON: Multiple prior chest radiographs, most recently of 01/29/2019 FINDINGS: LINES/TUBES:EKG leads overlie the chest. LUNGS:There is perihilar fullness and indistinctness of the pulmonary vasculature, slightly increased from 01/29/2019. There is left basilar opacity silhouetting the left juan diaphragm. PLEURA:Possible left pleural effusion. No pneumothorax. MEDIASTINUM:Cardiomediastinal silhouette is stably enlarged. BONES/SOFT TISSUES:No acute osseous injury. ABDOMEN:No free air under the diaphragm. IMPRESSION: Mild interval increase in pulmonary edema. Unchanged cardiomegaly. Left basilar patchy opacity may represent subsegmental atelectasis however superimposed aspiration or pneumonia could also have this appearance. Signed by: Josiah Mcneill MD on 01/30/2019 9:04 AM
[2019-01-30] MEDS ORDERED: NOREPINEPHRINE 8 MG/D5W 250 ML 250 ML IV SCH (09:15)
[2019-01-30] MEDS ORDERED: NOREPINEPHRINE 8 MG/D5W 250 ML 250 ML ONE (09:20)
[2019-01-30] MEDS: MIDAZOLAM HCL 25 MG in SODIUM CHLORIDE 0.9% 50ML 45 ML IV PRN ×5 (09:30→20:40)
[2019-01-30 09:39] LABS: ABG PH 7.26 (7.31-7.41)
[2019-01-30 09:40] LABS: ABG HCO3 33 mmol/L (23-28); ABG PCO2 74 mmHg (41-51); ABG PO2 274 mmHg (80-105)
[2019-01-30 09:57] LABS: BASOPHILS % 0.3 % (0.0-1.0); EOSINOPHILS # (AUTO) 0.1 (0.0-0.4); EOSINOPHILS % 0.9 % (0.0-6.0); HEMATOCRIT 29.3 % (38.2-49.6); HEMOGLOBIN 9.4 g/dL (14.0-18.0); LYMPHOCYTES # (AUTO) 0.6 (1.0-3.2); LYMPHOCYTES % 5.6 % (18.0-39.1); MEAN CORPUSCULAR HEMOGLOBIN 28.5 pg (28-32); MEAN CORPUSCULAR HGB CONC 32.1 g/dL (31-35); MEAN CORPUSCULAR VOLUME 88.8 fL (81-99); MONOCYTES # (AUTO) 1.1 (0.2-0.8); MONOCYTES % 10.1 % (4.4-11.3); NEUTROPHILS # (AUTO) 8.8 (2.1-6.9); NEUTROPHILS % 82.6 % (38.7-80.0); PLATELET COUNT 83 x10e3/uL (140-360); RED CELL DISTRIBUTION WIDTH 15.9 % (11.7-14.4)
[2019-01-30 10:09] LABS: INR 1.66; PROTHROMBIN TIME 20.2 seconds (11.9-14.5)
[2019-01-30 10:14] LABS: ANION GAP 13.4 mmol/L (8-16); CALCIUM 7.5 mg/dL (8.4-10.2); CREATININE, SERUM 2.1 mg/dL (0.72-1.25); POTASSIUM 4.4 mmol/L (3.5-5.1)
--- NOTE | 2019-01-30 10:24 | Diagnostic Imaging Report ---
EXAMINATION: CHEST SINGLE (PORTABLE) INDICATION: Endotracheal tube placement COMPARISON: Chest radiograph of earlier the same day FINDINGS: LINES/TUBES:The endotracheal tube appears to terminate at the level of the reno. EKG leads overlie the chest. LUNGS:Unchanged pulmonary edema and left basilar opacity silhouetting the left hemidiaphragm. PLEURA:No pleural effusion or pneumothorax. MEDIASTINUM:Unchanged cardiomegaly. BONES/SOFT TISSUES:No acute osseous injury. Sternotomy wires unchanged. ABDOMEN:No free air under the diaphragm. IMPRESSION: Interval intubation with endotracheal tube appearing to terminate at the level of the reno. Recommend withdrawal of endotracheal tube by approximately 3 cm. Unchanged pulmonary edema, cardiomegaly, and left basilar opacity. The above findings were discussed with ICU care team on 01/30/2019 10:18 AM, who responded indicating that the communication was understood. Signed by: Josiah Mcneill MD on 01/30/2019 10:21 AM
[2019-01-30 10:29] LABS: B-TYPE NATRIURETIC PEPTIDE2 192.1 pg/mL (0-100)
[2019-01-30] MEDS ORDERED: DEXMEDETOMIDINE HCL 200 MCG in SODIUM CHLORIDE 0.9% 50ML 48 ML IV PRN ×4 (10:45)
--- NOTE | 2019-01-30 10:54 | NUR ---
Holding physical therapy services since patient is moved to higher level of care (ICU) and intubated after initial PT eval order. Will need new orders when appropriate.Thank you. Addendum: 01/30/19 at 1056 by Patel montgomery PT Amended: Links added.
[2019-01-30 11:01] LABS: LYMPHOCYTES % (MANUAL) 9 % (19-48); MONOCYTES % (MANUAL) 4 % (3.4-9.0); NEUTROPHILS % (MANUAL) 87 % (40-74); PLATELET ESTIMATE SLIGHTLY DECREASED; PLATELET MORPHOLOGY COMMENT NORMAL; RBC MORPHOLOGY COMMENT NORMAL
[2019-01-30] MEDS: DEXTROSE 5% 1,000 ML IV SCH (11:14)
[2019-01-30 11:44] LABS: ABG HCO3 26 mmol/L (23-28); ABG PCO2 37 mmHg (41-51); ABG PH 7.46 (7.31-7.41); ABG PO2 172 mmHg (80-105)
[2019-01-30] MEDS ORDERED: FUROSEMIDE INJ 10 MG/ML 4 ML VIAL IV SCH (11:45)
--- NOTE | 2019-01-30 11:50 | NUR ---
ramirez cath inserted using wind turbine technician. 150cc dark yellow cloudy urine drained to gravity. will continue to monitor
[2019-01-30] MEDS: DEXMEDETOMIDINE 200MCG/NS 50ML 50 ML IV PRN ×2 (12:00→18:09)
[2019-01-30] MEDS: ENOXAPARIN SODIUM INJ 100 MG/ML SYR SC SCH (12:18)
[2019-01-30] MEDS: ACETAMINOPHEN 650 MG SUPP PR PRN (12:45)
--- NOTE | 2019-01-30 13:42 | Progress Note ---
DATE: 01/30/2019 Cardiology Progress Note SUBJECTIVE: Worsening of respiratory distress led to endotracheal intubation, ventilatory support, now in ICU, sedated. OBJECTIVE: VITAL SIGNS: Temperature 99.1, heart rate 86, respiratory rate 22; on telemetry, sinus rhythm; blood pressure 150/70, and O2 saturation 100% on vent support. GENERAL: Intubated and sedated. HEENT: Mucosa pale. CHEST: Decreased breath sounds in bilateral bases. CARDIOVASCULAR: Regular rate and rhythm. Normal S1, S2. Systolic ejection murmur. ABDOMEN: Soft, nontender, nondistended. Bowel sounds positive. EXTREMITIES: 2+ edema. Erythema, right leg. SKIN: Euthermic. CARDIOVASCULAR MEDICATIONS: Reviewed. Furosemide 40 mg IV daily, Lovenox 100 mg subcu daily, metoprolol tartrate 25 mg b.i.d., and aspirin 81 mg daily. STUDIES: White blood cells 10.6, hemoglobin 9.4, and platelets 83,000. INR 1.6, PT 20, PTT 53. Sodium 137, potassium 4.4, chloride 102, bicarbonate 26, BUN 30, creatinine 2.1, glucose 180, calcium 7.5. Lactic acid within normal range. BNP 192. ABG; 7.46/37/172. Influenza type A and B antigen negative. ASSESSMENT: An 78-year-old man with pneumonia, left leg cellulitis, sepsis, type 2 myocardial infarction versus [id number] myocardial infarction in the setting of underlying coronary artery disease and history of remote aortocoronary bypass 6 years ago. Hypertension, diabetes, dyslipidemia, anemia, thrombocytopenia, chronic kidney disease with possible acute kidney injury component, rhabdomyolysis now; status post ventilatory support, endotracheal intubation for acute pressure and respiratory failure. RECOMMEND: 1. Increased diuretics. 2. Continue antibiotics. 3. Monitor in ICU; overall, guarded prognosis. 4. Holding parameters for antihypertensives as blood pressure is low normal. MD FREDDIE Walker/MODL /[id number]
--- NOTE | 2019-01-30 13:56 | NUR ---
Nutrition Intervention Note RD Recommendation(s) for Physician (01/30): -TF recommendation if medically feasible and hemodynamically stable: Vital HP at 10 ml/hr advance as tolerated to goal rate of 65 ml/hr with 30 ml of water flushed every 4 hours (1560kcal, 137 gram protein, 1304 ml of fluid) -IVF management and additional flushes per MD. -ADAT to 1800 ADA diet, 2 gm Na per MD, texture per speech. Plan of Care: RD following, monitoring for tolerance and adequacy. EN recs. Nutrition reason for involvement: Newly intubated pt RD Assessment 01/30: 78 YOM admitted for Afib with PMH listed below. Pt was first admitted to the floors but has since been intubated and sedated on versed within the ICU. Per nurse-plan is to extubate in the next couple of days. Will provide TF recommendations if needed. Pt will be meeting 95% of his recommended energy needs and 121% of his recommend protein needs with TF recommendation above. Pt is not on propofol or pressor support. No family at bedside. Within the EMR: levo is recorded in medication list, per nurse she has it in the room just in case it is needed, recommended to only trickle feed when hemodynamically stable, MAPS higher than 65 and pt is on less than 5 mcg/min of levo. Will continue to monitor. Principal Problems/Diagnoses: Afib with RVR PMH: history of diabetes mellitus type 2, hypertension, dyslipidemia, lymphedema, atrial fibrillation, morbid obesity, cor pulmonale, and history of recurrent right leg cellulitis, GI: LBM: not recorded Skin: --- Labs: 01/30: BUN 30, Creat 2.10, Gluc 180, Ca 7.5, B-natriuretic peptide 192 Meds: lovenox, versed, abx, insulin, gabapentin, probiotic, lasix Ht: 70 in Wt:290 lbs BMI:41.7 kg/m^2 IBW:166 lbs Malnutrition Evaluation (01/30) The patient does not meet criteria for a specified degree of malnutrition at this time. Will re-evaluate at follow-up as appropriate. Nutrition Prescription (Diet Order): NPO Estimated Nutritional Needs: Calories: 9991-0075(22-25kcal/day) Weight used : IBW: 75 kg intubated Protein : 112-150 (1.5-2gram/protein/day) Weight used: IBW: 75 kg -intubated Diet Adequacy: Not meeting calorie needs, Not meeting protein needs Diet Education Needs Assessment: Diet education not indicated, patient on temporary/transition diet. Nutrition Care Level: mod Nutrition Diagnosis: Inadequate energy intake related to medical condition as evidenced by pt being intubated and having a diet order of NPO. Goal: Patient will meet 75-100% of estimated needs by follow up Progress: N/A Interventions: Carb, mineral (sodium) modified diet, Composition, Rate, Route, IVF, Collaboration with other providers, prescription medication Monitoring/Evaluation: -Total energy intake, Total protein intake, Formula/Solution, IVF, Prescription medication, Modified diet Signed: Sue Dominguez RD, LD
--- NOTE | 2019-01-30 14:22 | Progress Note ---
DATE: 01/30/2019 CHIEF COMPLAINT: Acute respiratory failure. SUBJECTIVE: The patient is intubated this morning after a rapid response was called for severe hypoxia of 68%. He was intubated and transferred to ICU. PHYSICAL EXAMINATION: VITAL SIGNS: Temperature 99.1, pulse is 106, respirations 18, blood pressure 150/70, and pulse ox is 100% on intubated at 22 L. GENERAL: Intubated. HEENT: Normocephalic. LUNGS: Decreased breath sounds, intubated, saturating 100% on 22 L. CARDIOVASCULAR: Regular rate and rhythm. ABDOMEN: Soft and nontender. NEUROLOGIC: Sedated and intubated. MUSCULOSKELETAL: Sedated. SKIN: Right lower extremity redness and edema noted, and left upper chest bruising due to mechanical fall. LABORATORY DATA: WBC is 10.63, hemoglobin is 9.4, hematocrit is 29.3, and platelet is 83. Sodium 137, potassium 4.4, CO2 is 26. BUN is 30, creatinine is 2.10. Estimated GFR is 31. Blood glucose is 180. Calcium is 7.5. BNP is 192.1. Lactic acid is 14. INR is 1.66. Blood gases; pH 7.3, pCO2 of 37, PO2 of 172, bicarb 26, O2 sats are 100%. IMAGING: Chest x-ray shows unchanged pulmonary edema, cardiomegaly, and left basilar opacities intubated. IMPRESSION AND PLAN: 1. Severe sepsis on admission due to community-acquired pneumonia. Blood culture positive for gram-negative rods. Lactic acid, now improved. We will continue with IV fluids and IV antibiotics. Now with acute respiratory failure, intubated and transferred to ICU for further management. 2. Acute respiratory failure, likely due to pulmonary edema as noted on chest x-ray, but pneumonia cannot be ruled out. Change Lasix to IV b.i.d. Mccann catheter is placed and noted urine output. 3. Elevated troponins, likely due to sepsis. Cardiology has been consulted. Echocardiogram has been done pending further recommendations. 4. Acute rhabdomyolysis, likely due to fever and chills. We will continue with IV fluids and monitor CK. 5. Hypertension. We will continue to medicate as needed. 6. Diabetes type 2. Continue sliding scale insulin and Lantus. 7. History of chronic obstructive pulmonary disease. Continue nebs and antibiotics. Pulmonary on the case. 8. History of atrial fibrillation, controlled rate. Coumadin has been discontinued for possible cardiac workup. Continue Lovenox. 9. History of coronary artery disease with bypass. He will continue on to hold statin due to rhabdomyolysis. 10. Systolic congestive heart failure. We will continue with Lasix IV. BNP is 192 this morning. 11. Thrombocytopenia, likely due to sepsis. Platelet count is slightly improved 83 today. We will continue to monitor. 12. History of hyperlipidemia, aware. 13. Acute kidney injury with a history of chronic kidney disease 3. Creatinine is up to 2.1 today. We will continue to diurese and monitor closely. 14. Right lower extremity cellulitis. Infectious Disease on the case. We will defer antibiotics to ID. 15. History of mechanical fall two weeks ago with a left upper chest bruising. We will continue to monitor closely. 16. Urinary tract infection. Urine culture growing gram-negative rods, likely bacteremia is due to urinary tract infection. Continue on Merrem. 17. Bacteremia with gram-negative rods. Repeat blood culture is negative. We will continue on Merrem. 18. Deep vein thrombosis prophylaxis, on Lovenox. Dictated by EVELYNE Boone Gretchen Loco MD MY/MODL /[id number]
[2019-01-30] MEDS ORDERED: SODIUM CHLORIDE 0.9% 1000ML 1,000 ML ONE (16:51)
[2019-01-30] MEDS ORDERED: WARFARIN SOD 2.5 MG TAB PO SCH (17:00)
--- NOTE | 2019-01-30 17:43 | Diagnostic Imaging Report ---
PROCEDURE: Non-tunneled central venous catheter placement Procedural Personnel Attending physician(s): Josiah Mcneill MD Fellow physician(s): None Resident physician(s): None Advanced practice provider(s): None Pre-procedure diagnosis: Sepsis Post-procedure diagnosis: Same Indication: Administration of intravenous medications Additional clinical history: None Complications: No immediate complications. IMPRESSION: Insertion of right-sided non-tunneled triple-lumen temporary central venous catheter. Plan: Portable chest radiograph to confirm location prior to use. PROCEDURE SUMMARY: - Venous access with ultrasound guidance - Non-tunneled central venous catheter insertion - Additional procedure(s): None PROCEDURE DETAILS: Pre-procedure Consent: Informed consent for the procedure including risks, benefits and alternatives was obtained and time-out was performed prior to the procedure. Preparation (MIPS): The site was prepared and draped using all elements of maximal sterile barrier technique including sterile gloves, sterile gown, cap, mask, large sterile sheet, sterile ultrasound probe cover, hand hygiene and cutaneous antisepsis with 2% chlorhexidine. Medical reason for site preparation exception (MIPS): Not applicable Anesthesia/sedation Level of anesthesia/sedation: No sedation Access Local anesthesia was administered. The vessel was sonographically evaluated and determined to be patent. Real time ultrasound was used to visualize needle entry into the vessel and a permanent image was stored. Vein accessed: Internal jugular vein Access technique: 19 gauge access needle Catheter placement The access site was dilated and the catheter was placed into the vein over a wire. A sterile dressing was applied. Catheter placed: Bard triple lumen CVC Catheter size ([place]): 7 Catheter length (cm): 16 Catheter flush: Normal saline Catheter securement technique: Non-absorbable suture Contrast Contrast agent: None Radiation Dose None, ultrasound guidance only. Chest radiograph to follow. Additional Details Additional description of procedure: None Equipment details: None Specimens removed: None Estimated blood loss (mL): Less than 10 Standardized report: [email or web address] Attestation Signer name: Josiah Mcneill MD I attest that I was present for the entire procedure. I reviewed the stored images and agree with the report as written. Signed by: Josiah Mcneill MD on 01/30/2019 5:40 PM
[2019-01-30] MEDS: FUROSEMIDE INJ 10 MG/ML 4 ML VIAL IV SCH (18:09)
--- NOTE | 2019-01-30 19:05 | Diagnostic Imaging Report ---
Examination: Single AP view of the chest. COMPARISON: None. INDICATION: Central line placement DISCUSSION: Patient motion limits evaluation. Lines/tubes: Right IJ central venous catheter with the tip approximately overlying the cavoatrial junction. Sternotomy wires. Endotracheal tube withdrawn in satisfactory position well above the reno. Lungs: Left lower lung opacity with possible effusion. Central venous congestion. Heart and mediastinum: The heart and the mediastinum are unremarkable. Bones and soft tissues: No acute bony abnormalities. IMPRESSION: Limited due to motion. Central venous congestion and stable left lower lung opacity/effusion. Right IJ catheter with tip overlying the cavoatrial junction Signed by: Dr. Mauri Fernandez M.D. on 01/30/2019 7:02 PM
--- NOTE | 2019-01-30 20:00 | NUR ---
Per Dr Lee: OK to Use CVC
[2019-01-30] MEDS: TERAZOSIN HCL 5 MG CAP PO SCH (20:33)
[2019-01-30] MEDS ORDERED: ACETAMINOPHEN 1000 MG/100 ML IV ONE (23:00)
--- NOTE | 2019-01-30 23:57 | NUR ---
PULMONARY MEDICINE DATE: 01/30/2019 SUBJECTIVE: patient didnt use home cpap/bipap yesterday night. today he was mildly lethargic, but able to try to eat on own. patient later seen obtunded, 68% oxygen saturation, struggling to breathe. decision to intubate. REVIEW OF SYSTEMS: cant get, intubated PHYSICAL EXAMINATION: VITAL SIGNS: vital signs noted per the chart record. GENERAL: intubated, on ventilator HEENT: Normocephalic, atraumatic. NECK: Supple. Large, midline. LUNGS: Bilateral air entry, decreased breath sounds especially at the left base. CARDIOVASCULAR: S1 and S2. No murmurs, rubs, or gallops. ABDOMEN: Soft and obese. EXTREMITIES: No clubbing. No cyanosis. 2+ edema. INTEGUMENT: No rash. No purpura. Mild venous stasis changes. LABORATORY DATA: k 4.1, hco3 28, bun 31, cr 2.1. 11 wbc, hct 29 IMPRESSION AND PLAN: 0. acute respiratory failure, intubated 1. GNR UTI, severe sepsis 2. GNR septicemia 3. Pneumonia. 4. Chronic respiratory failure, cor pulmonale. 5. Left hemidiaphragmatic elevation. 6. Severe sleep apnea, reported 17% oxygen level during sleep. 7. Coronary artery disease, status post coronary artery bypass grafting long time ago. 8,. Hypertension. 9. Diabetes. 10. Osteoarthritis. 11. Chronic kidney disease. 12. Warfarin use. 13. low platelets 14. encephalopathy, toxic/metabolic maintain intubated ventilator support sedation consider nutrition enteral tomorrow if stabilizes and not extubatable Antibiotics. Some diuretics- he is on metolazone twice a week and Lasix daily at home. ABG PRN Thank you very much, Dr. Loco, for this consult. Please call for any questions. multiple intervention and coordination. >30 min care today
[2019-01-31] VITALS (26 sets, daily range): BP systolic 101–138; BP diastolic 49–65
[2019-01-31] MEDS: DEXTROSE 5% 1,000 ML IV SCH ×2 (01:39→16:29)
[2019-01-31] MEDS: DEXMEDETOMIDINE 200MCG/NS 50ML 50 ML IV PRN ×3 (01:40→17:12)
[2019-01-31] MEDS: MIDAZOLAM HCL 25 MG in SODIUM CHLORIDE 0.9% 50ML 45 ML IV PRN ×4 (01:41→23:27)
[2019-01-31] MEDS: IPRATROPIUM BROMIDE 0.02% 2.5 ML NEB NEB SCH ×6 (02:50→22:40)
[2019-01-31] MEDS: ALBUTEROL SULF 0.083% NEB SOLN 3 ML NEB NEB SCH ×6 (02:50→22:40)
[2019-01-31 05:14] LABS: BASOPHILS % 0.3 % (0.0-1.0); EOSINOPHILS # (AUTO) 0.4 (0.0-0.4); EOSINOPHILS % 5.1 % (0.0-6.0); HEMATOCRIT 27.7 % (38.2-49.6); LYMPHOCYTES # (AUTO) 1.2 (1.0-3.2); LYMPHOCYTES % 15.4 % (18.0-39.1); MEAN CORPUSCULAR HEMOGLOBIN 28.4 pg (28-32); MEAN CORPUSCULAR HGB CONC 32.5 g/dL (31-35); MEAN CORPUSCULAR VOLUME 87.4 fL (81-99); MONOCYTES # (AUTO) 0.8 (0.2-0.8); MONOCYTES % 10.2 % (4.4-11.3); NEUTROPHILS # (AUTO) 5.4 (2.1-6.9); NEUTROPHILS % 68.2 % (38.7-80.0); PLATELET COUNT 106 x10e3/uL (140-360); RED BLOOD COUNT 3.17 x10e6/uL (4.3-5.7); RED CELL DISTRIBUTION WIDTH 15.9 % (11.7-14.4)
[2019-01-31 05:27] LABS: CALCIUM 7.6 mg/dL (8.4-10.2); CREATININE, SERUM 2.1 mg/dL (0.72-1.25); MAGNESIUM 1.5 MG/DL (1.3-2.1)
[2019-01-31] MEDS: MEROPENEM 500MG/ NS 50ML 50 ML IV SCH ×3 (05:37→20:58)
[2019-01-31] MEDS: INSULIN REGULAR, HUMAN 100 UNIT/1 ML 3ML VIAL SQ SCH ×5 (05:40→23:48)
--- NOTE | 2019-01-31 06:42 | Diagnostic Imaging Report ---
Examination: Single AP view of the chest. COMPARISON: 01/30/2019. INDICATION: Fever, pneumonia sepsis. DISCUSSION: Patient motion limits evaluation. Lines/tubes: Right IJ central venous catheter with the tip projected on the cavoatrial junction, unchanged.. Endotracheal tube with distal tip above the reno, at the level distal clavicular junctions. Lungs and pleura: Redemonstration of increased density in the lower left hemithorax suggestive of pleural effusion and associated atelectasis versus consolidation. Bilateral pulmonary venous congestion. Small right pleural effusion. No pneumothorax. Heart and mediastinum: The cardiac silhouette is mildly enlarged. Bones and soft tissues: No acute bony abnormalities. Degenerative changes in the thoracic spine. IMPRESSION: No significant interval change. Bilateral pulmonary venous congestion. Left pleural effusion and associated atelectasis versus pneumonia in the proper clinical setting. Signed by: Dr. Selene Castano M.D. on 01/31/2019 6:39 AM
[2019-01-31] MEDS: ASPIRIN 81 MG CHEW TAB PO SCH (09:00)
[2019-01-31] MEDS: LACTOBACILLUS ACIDOPHILUS CAPSULE PO SCH ×2 (09:00→17:00)
[2019-01-31] MEDS: METOPROLOL TARTRATE 25 MG TAB PO SCH ×2 (09:00→17:00)
[2019-01-31] MEDS: GABAPENTIN 400 MG CAP PO SCH ×2 (09:00→17:00)
[2019-01-31] MEDS: ENOXAPARIN SODIUM INJ 100 MG/ML SYR SC SCH (10:01)
[2019-01-31] MEDS: FUROSEMIDE INJ 10 MG/ML 4 ML VIAL IV SCH ×2 (10:01→18:04)
[2019-01-31] MEDS: INSULIN GLARGINE 100 UNITS/ML VIAL SQ SCH ×2 (10:28→21:20)
--- NOTE | 2019-01-31 10:40 | NUR ---
Pt sleeping soundly and no family present. Media Planner / Buyer left a card describing availability of prepress manager and instructions on how to contact a prepress manager. SAMANTA CLAYTON Media Planner / Buyer Spiritual Care Department O: [phone] Pager: [phone] ([phone] number calling from)
[2019-01-31] MEDS ORDERED: POTASSIUM CHLORIDE 20MEQ/100ML 100 ML IV STA (12:45)
[2019-01-31] MEDS ORDERED: ACETAMINOPHEN 1000 MG/100 ML IV PRN (13:00)
--- NOTE | 2019-01-31 13:12 | Progress Note ---
DATE: 01/31/2019 Cardiology Progress Note SUBJECTIVE: Intubated and sedated. OBJECTIVE: VITAL SIGNS: Temperature 98.1, heart rate 62, respiratory rate 18, blood pressure 118/59, and O2 saturation 95%. BMI is 41. GENERAL: Intubated and sedated. HEENT: Mucosa pale. NECK: JVD. CHEST: Decreased breath sounds bilaterally. CARDIOVASCULAR: Regular rate and rhythm. Normal S1 and S2. Systolic ejection murmur 1/6. ABDOMEN: Soft and nontender. Bowel sounds positive. EXTREMITIES: 1+ edema. SKIN: With erythema to right leg. Euthermic. NEUROLOGIC: Sedated. CARDIOVASCULAR MEDICATIONS: Reviewed. 1. Aspirin 81 mg daily. 2. Metoprolol tartrate 25 mg b.i.d. 3. Furosemide 40 mg b.i.d. 4. Levophed, currently on hold. STUDIES: Reviewed. Sodium 135, potassium 3, chloride 97, bicarbonate 30, BUN 31, creatinine 2.1, and glucose 214. White blood cells 7.9, hemoglobin 9, and platelets 106. INR 1.6, PTT 53, and PT 20. AST 82, ALT 45, alkaline phosphatase 59, and total bilirubin 0.7. ASSESSMENT: 1. An 78-year-old man presents with acute respiratory failure requiring ventilatory support. 2. Right leg cellulitis. 3. Acute kidney injury on chronic kidney disease. 4. Diabetes. 5. Hypertension. 6. Dyslipidemia. 7. Coronary artery disease. 8. Chronic diastolic heart failure. RECOMMENDATIONS: 1. Continue diuresis and vent support as tolerated. 2. Type 2 myocardial infarction versus [id number] myocardial infarction. Once more stable, can reconsider coronary angiography if the patient wishes to proceed, I discussed this, however. As the patient getting intubated in presence of family members, the patient did not seem keen on proceeding at the time. We will let this at a later date. MD FREDDIE Walker/ZORAIDA /[id number]
--- NOTE | 2019-01-31 14:40 | Progress Note ---
DATE: 01/31/2019 CHIEF COMPLAINT: Acute respiratory failure and fever. SUBJECTIVE: The patient is intubated and resting. PHYSICAL EXAMINATION: VITAL SIGNS: Temperature 98.1, pulse is 61, respiratory rate is 18, blood pressure is 107/49, and pulse ox is 96% on vent. GENERAL: Intubated, resting. LUNGS: Decreased breath sounds with some wheezing throughout. HEENT: Normocephalic along midline. CARDIOVASCULAR: Regular rate and rhythm. ABDOMEN: Soft and nontender. NEUROLOGIC: Sedated and intubated. MUSCULOSKELETAL: Mild edema noted in the lower extremities. SKIN: Right lower extremity redness noted and mild edema due to lymphedema. LABORATORY DATA: WBC 7.97, hemoglobin 9.0, hematocrit 27.7, and platelet is 106. Sodium is 135, potassium is 3.0, chloride is 97, CO2 is 30, BUN is 31, creatinine is 2.10, estimated GFR is 31, glucose 214, calcium is 7.6, phosphorus is 2.0, and magnesium is 1.5. IMAGING: Chest x-ray this morning showed no significant interval change. Bilateral pulmonary venous congestion. Left pleural effusion and associated atelectasis versus pneumonia in the proper clinical setting. IMPRESSION AND PLAN: 1. Sepsis on admission due to urinary tract infection. Blood culture was positive for gram-negative rods. Started on IV antibiotics and IV fluids. Repeat blood cultures are pending. 2. Acute respiratory failure, likely due to pulmonary edema or pneumonia. The patient was started on Lasix IV b.i.d. Strict I and O, Mccann catheter placed and monitor urine output. Chest x-ray this morning with not much interval changes. He remains intubated in the ICU. 3. Elevated troponins, likely due to sepsis. Echocardiogram has been done, pending results. 4. Acute rhabdomyolysis. We will check CK levels. 5. Hypertension, now hypotensive. We will hold on blood pressure medications. 6. Diabetes type 2. Continue sliding scale insulin and Lantus. 7. Anemia of chronic disease. Hemoglobin is 9.0 today. We will continue to monitor and hold anticoagulation. 8. History of chronic obstructive pulmonary disease. Continue nebs and Pulmonary on the case. 9. History of atrial fibrillation. Currently rate is at 61, normal sinus rhythm. We will hold anticoagulation due to anemia. 10. History of coronary artery disease with history of bypass, aware. 11. Systolic congestive heart failure. We will continue with Lasix for generalized edema and pulmonary edema. BNP is 192, not on acute exacerbation. 12. Thrombocytopenia, likely due to sepsis. Platelet is slightly improved today to 106. No active bleeding noted. 13. History of hyperlipidemia, aware. 14. Acute kidney injury with a history of chronic kidney disease 3. Creatinine remains stable at 2.1. We will continue to monitor closely. 15. Right lower extremity cellulitis. We will continue with IV antibiotics and defer to Infectious Disease. 16. Urinary tract infection. Urine culture growing gram-negative rods. Continue Merrem per sensitivity. 17. History of mechanical fall two weeks ago per family with left upper chest bruising, no increased bruising. 18. Deep vein thrombosis prophylaxis. We will hold chemical anticoagulation due to anemia. 19. Hypokalemia with a potassium of 3.0. We will replete. Dictated by EVELYNE Boone Gretchen Loco MD MY/MODL /[id number]
--- NOTE | 2019-01-31 16:05 | NUR ---
Gold ring removed from left ring finger per Dr Nelson request. The spouse has called and is not visiting today. Have notified spouse that the ring will be bagged and placed with security. At this time, Pamela Cruz senior security architect, has taken the ring to be secured.
--- NOTE | 2019-01-31 19:13 | NUR ---
NGT. Had been advised to wait for Dr Lee to visit for possible extubation. As of shift change, Dr Lee had not rounded, he was called, he gave order to place ngt. Attempt X3 to place NGT was unsuccessful. No current complications noted. Oncoming nurse is aware.
[2019-01-31] MEDS: TERAZOSIN HCL 5 MG CAP PO SCH (20:18)
--- NOTE | 2019-01-31 21:30 | NUR ---
Dr Lee rounded and was notified of X [address] NGT without success.
--- NOTE | 2019-01-31 21:45 | NUR ---
PULMONARY MEDICINE DATE: 01/31/2019 SUBJECTIVE: NGT tough, no NGT done patient awoke semi-quickly off sedation versed 5/ precedex 0.1 mcg/min d5w 65/ivf REVIEW OF SYSTEMS: cant get, intubated PHYSICAL EXAMINATION: VITAL SIGNS: vital signs noted per the chart record. GENERAL: intubated, on ventilator HEENT: Normocephalic, atraumatic. NECK: Supple. Large, midline. LUNGS: Bilateral air entry, decreased breath sounds especially at the left base. CARDIOVASCULAR: S1 and S2. No murmurs, rubs, or gallops. ABDOMEN: Soft and obese. EXTREMITIES: No clubbing. No cyanosis. 2+ edema. INTEGUMENT: No rash. No purpura. Mild venous stasis changes. LABORATORY DATA: k 3.0, hco3 30, bun 31, cr 2.1 8 wbc, hct 28 plt 106 IMPRESSION AND PLAN: 0. acute respiratory failure, intubated 1. ESBL ecoli UTI, severe sepsis 2. a baumanii septicemia 3. Pneumonia. 4. Chronic respiratory failure, cor pulmonale. 5. Left hemidiaphragmatic elevation. 6. Severe sleep apnea, reported 17% oxygen level during sleep. 7. Coronary artery disease, status post coronary artery bypass grafting long time ago. 8,. Hypertension. 9. Diabetes. 10. Osteoarthritis. 11. Chronic kidney disease. 12. Warfarin use. 13. low platelets 14. encephalopathy, toxic/metabolic 15. low k maintain intubated ventilator support sedation holiday daily fast wean trials starting tomorrow D5w maintenance consider nutrition enteral -- NGT not feasible today, consider Dobbhoff if not extubatable Antibiotics as needed Some diuretics- he is on metolazone twice a week and Lasix daily at home. ABG PRN psychiatric maintenance per designated provider for this complex situation Thank you very much, Dr. Loco, for this consult. Please call for any questions.
[2019-01-31] MEDS ORDERED: POTASSIUM CHLORIDE 20MEQ/100ML 200 ML IV ONE (22:00)
[2019-02-01] VITALS (25 sets, daily range): BP systolic 98–160; BP diastolic 35–113
[2019-02-01] MEDS: DEXMEDETOMIDINE 200MCG/NS 50ML 50 ML IV PRN ×2 (01:49→06:28)
[2019-02-01] MEDS: ALBUTEROL SULF 0.083% NEB SOLN 3 ML NEB NEB SCH ×5 (02:20→23:15)
[2019-02-01] MEDS: IPRATROPIUM BROMIDE 0.02% 2.5 ML NEB NEB SCH ×6 (02:20→23:15)
[2019-02-01 05:00] LABS: BASOPHILS % 0.3 % (0.0-1.0); EOSINOPHILS # (AUTO) 0.6 (0.0-0.4); EOSINOPHILS % 6.4 % (0.0-6.0); HEMATOCRIT 30.8 % (38.2-49.6); LYMPHOCYTES # (AUTO) 1.2 (1.0-3.2); LYMPHOCYTES % 13.1 % (18.0-39.1); MEAN CORPUSCULAR HGB CONC 32.5 g/dL (31-35); MEAN CORPUSCULAR VOLUME 86.3 fL (81-99); MONOCYTES % 11.1 % (4.4-11.3); NEUTROPHILS % 68.4 % (38.7-80.0); PLATELET COUNT 127 x10e3/uL (140-360); RED BLOOD COUNT 3.57 x10e6/uL (4.3-5.7); RED CELL DISTRIBUTION WIDTH 16.1 % (11.7-14.4)
[2019-02-01 05:23] LABS: ANION GAP 12.5 mmol/L (8-16); CALCIUM 7.8 mg/dL (8.4-10.2); CREATININE, SERUM 1.86 mg/dL (0.72-1.25); POTASSIUM 3.5 mmol/L (3.5-5.1)
[2019-02-01] MEDS: MEROPENEM 500MG/ NS 50ML 50 ML IV SCH ×3 (05:25→22:00)
[2019-02-01] MEDS: INSULIN REGULAR, HUMAN 100 UNIT/1 ML 3ML VIAL SQ SCH ×3 (05:26→17:23)
--- NOTE | 2019-02-01 06:38 | Diagnostic Imaging Report ---
Examination: Single AP view of the chest. COMPARISON: 01/31/2019. INDICATION: Fever, pneumonia sepsis. DISCUSSION: Lines/tubes: Right IJ central venous catheter with the tip projected on the cavoatrial junction, unchanged.. Endotracheal tube with distal tip above the reno, at the level distal clavicular junction, unchanged. Lungs and pleura: Redemonstration of increased density in the lower left hemithorax suggestive of pleural effusion and associated atelectasis versus consolidation, stable. Mild pulmonary venous congestion. Trace right pleural effusion. No pneumothorax. Heart and mediastinum: The cardiac silhouette is mildly enlarged. Bones and soft tissues: No acute bony abnormalities. Degenerative changes in the thoracic spine. IMPRESSION: 1. Stable exam. Left pleural effusion and associated atelectasis versus pneumonia. 2. Stable supporting ET tube and right IJ central venous line. Signed by: Dr. Selene Castano M.D. on 02/01/2019 6:35 AM
[2019-02-01] MEDS: DEXTROSE 5% 1,000 ML IV SCH ×2 (07:18→22:51)
[2019-02-01] MEDS: FUROSEMIDE INJ 10 MG/ML 4 ML VIAL IV SCH ×2 (08:10→16:38)
[2019-02-01] MEDS: ENOXAPARIN SODIUM INJ 100 MG/ML SYR SC SCH (08:10)
[2019-02-01] MEDS: ASPIRIN 81 MG CHEW TAB PO SCH (08:11)
[2019-02-01] MEDS: METOPROLOL TARTRATE 25 MG TAB PO SCH ×2 (08:11→16:38)
[2019-02-01] MEDS: LACTOBACILLUS ACIDOPHILUS CAPSULE PO SCH ×2 (08:14→16:39)
[2019-02-01] MEDS: GABAPENTIN 400 MG CAP PO SCH ×2 (08:14→16:38)
[2019-02-01] MEDS: INSULIN GLARGINE 100 UNITS/ML VIAL SQ SCH ×2 (08:24→22:01)
[2019-02-01] MEDS ORDERED: SUCCINYLCHOLINE 200 MG/10 ML SYR IV ONE (12:07)
[2019-02-01] MEDS ORDERED: ETOMIDATE 40 MG/ 20ML VIAL IV ONE (12:07)
--- NOTE | 2019-02-01 12:21 | Progress Note ---
DATE: 02/01/2019 Cardiology Progress Note SUBJECTIVE: Intubated and sedated. OBJECTIVE: VITAL SIGNS: Temperature 99.9, heart rate 73, respiratory rate 18, blood pressure 104/56, O2 saturation 95% on vent support. GENERAL: Intubated, sedated. HEENT: Mucosa moist and pale. NECK: Supple. CHEST: Decreased breath sounds and scattered rhonchi. CARDIOVASCULAR: Regular rate and rhythm. Normal S1, S2. Systolic ejection murmur. No S3, no S4. ABDOMEN: Soft. Bowel sounds positive. EXTREMITIES: With 1+ edema. Right lower extremity erythema noted. SKIN: Erythema to right leg and dry. MEDICATIONS: 1. Furosemide 40 mg b.i.d. IV. 2. Lovenox 100 mg subcu daily. 3. Metoprolol tartrate 25 mg b.i.d. 4. Aspirin 81 mg daily. STUDIES: Reviewed. White blood cells 8.7, hemoglobin 10, platelets 127. Sodium 133, potassium 3.5, chloride 94, bicarbonate 30, BUN 29, creatinine 1.86, glucose 220, calcium 7.8. INR 1.6. ASSESSMENT: 1. Acute respiratory failure. 2. Sepsis in the setting of urinary tract infection. 3. Rhabdomyolysis. 4. Type 2 diabetes mellitus and hypertension. 5. History of atrial fibrillation. 6. Chronic obstructive pulmonary disease. 7. Acute kidney injury on chronic kidney disease. 8. Right leg cellulitis. 9. Mechanical fall prior to admission with blunt chest trauma, resulting in rhabdomyolysis. 10. Acute on chronic diastolic heart failure. 11. Coronary artery disease. RECOMMEND: 1. Continue diuretics. 2. Replete electrolytes as needed. 3. Type 2 myocardial infarction versus non-ST elevation CA. Once extubated and sepsis improved depending on renal function, can revisit possibility of coronary angiography. I have discussed this before with patient who wanted to hold off prior to worsening respiratory failure, requiring intubation. 4. Updated family who was at bedside. MD FREDDIE Walker/ZORAIDA /[id number]
--- NOTE | 2019-02-01 12:36 | NUR ---
PULMONARY MEDICINE DATE: 02/01/2019 SUBJECTIVE: patient with tmax 100.1. hemodynamics good. UOP good versed 5 / , precedex .4 / overnight today spont awakening trial underway, still not awake enough. he moves intermittently. d5w at 65/hr ivf (no ngt feasible yet) REVIEW OF SYSTEMS: cant get, intubated PHYSICAL EXAMINATION: VITAL SIGNS: vital signs noted per the chart record. GENERAL: intubated, on ventilator HEENT: Normocephalic, atraumatic. NECK: Supple. Large, midline. LUNGS: Bilateral air entry, decreased breath sounds especially at the left base. CARDIOVASCULAR: S1 and S2. No murmurs, rubs, or gallops. ABDOMEN: Soft and obese. EXTREMITIES: No clubbing. No cyanosis. 2+ edema. INTEGUMENT: No rash. No purpura. Mild venous stasis changes. LABORATORY DATA: k 3.5, hco3 30, bun 29, cr 1.86. wbc 9, hct 31, plt 127. IMPRESSION AND PLAN: 0. acute respiratory failure, intubated 1. ESBL ecoli UTI, severe sepsis 2. a baumanii septicemia 3. Pneumonia. 4. Chronic respiratory failure, cor pulmonale. 5. Left hemidiaphragmatic elevation. 6. Severe sleep apnea, reported 17% oxygen level during previous sleep study. 7. Coronary artery disease, status post coronary artery bypass grafting long time ago. 8,. Hypertension. 9. Diabetes. 10. Osteoarthritis. 11. Chronic kidney disease. 12. Warfarin use. 13. low platelets 14. encephalopathy, toxic/metabolic 15. mild anemia NOS maintain intubated for now, extubate if passes SBT and post-extubation psychiatric plan arranged by specialist. is very detailed about management ventilator support for now sedation holiday / SAT fast wean trial when awake enough D5w maintenance consider nutrition enteral -- NGT not feasible today, consider Dobbhoff if not extubatable Antibiotics as needed Some diuretics- he is on metolazone twice a week and Lasix daily at home. ABG PRN Thank you very much, Dr. Loco, for this consult. Please call for any questions.
[2019-02-01] MEDS ORDERED: POTASSIUM CHLORIDE 20MEQ/100ML 200 ML IV ONE (13:00)
--- NOTE | 2019-02-01 13:52 | NUR ---
Nutrition Intervention Note RD Recommendation(s) for Physician (02/02): -TF recommendation if medically feasible and hemodynamically stable: Vital HP at 10 ml/hr advance as tolerated to goal rate of 65 ml/hr with 30 ml of water flushed every 4 hours (1560kcal, 137 gram protein, 1304 ml of fluid) -IVF management and additional flushes per MD. -Monitor BMP with Mg and Phos closely, replace low lytes as needed. -Clarify diet order as NPO currently as pt remains intubated. -If extubated, recommend BSE for PO safety and ADAT to 1800 ADA diet, 2 gm Na per MD, texture per speech. Plan of Care: RD following, monitoring for tolerance and adequacy. EN recs. Nutrition reason for involvement: NPO day [address] Assessment 02/01: Pt seen today for f/u as he remains on vent with no EN. Pt discussed during am rounds, sedation decreased with plan for extubation today- TF rec's provided if pt remains intubated, RD rec's discussed during rounds. Pt awake, however not responsive to verbal stimuli at this time. Pt off pressor support. Current TF rec's remain appropriate to meet needs. 01/30: 78 YOM admitted for Afib with PMH listed below. Pt was first admitted to the floors but has since been intubated and sedated on versed within the ICU. Per nurse-plan is to extubate in the next couple of days. Will provide TF recommendations if needed. Pt will be meeting 95% of his recommended energy needs and 121% of his recommend protein needs with TF recommendation above. Pt is not on propofol or pressor support. No family at bedside. Within the EMR: levo is recorded in medication list, per nurse she has it in the room just in case it is needed, recommended to only trickle feed when hemodynamically stable, MAPS higher than 65 and pt is on less than 5 mcg/min of levo. Will continue to monitor. Principal Problems/Diagnoses: Afib with RVR PMH: history of diabetes mellitus type 2, hypertension, dyslipidemia, lymphedema, atrial fibrillation, morbid obesity, cor pulmonale, and history of recurrent right leg cellulitis, GI: LBM 01/30 Skin: No PU per chart Labs: 02/01: Na 133, K 3.5, BUN 29, Cr 1.86, Gluc 220, POC Gluc 194-238 01/30: BUN 30, Creat 2.10, Gluc 180, Ca 7.5, B-natriuretic peptide 192 Meds: lovenox, versed, abx, insulin, gabapentin, probiotic, lasix Ht: 70 in Wt:290 lbs BMI:41.7 kg/m^2 IBW:166 lbs Malnutrition Evaluation (01/30) The patient does not meet criteria for a specified degree of malnutrition at this time. Will re-evaluate at follow-up as appropriate. Nutrition Prescription (Diet Order): 1800 ADA- diet order remains in system, pt currently NPO on vent Estimated Nutritional Needs: Calories: 9324-2342(22-25kcal/day) Weight used : IBW: 75 kg intubated Protein : 112-150 (1.5-2gram/protein/day) Weight used: IBW: 75 kg -intubated Diet Adequacy: Not meeting calorie needs, Not meeting protein needs Diet Education Needs Assessment: Diet education not indicated, patient on temporary/transition diet. Nutrition Care Level: mod Nutrition Diagnosis: Inadequate energy intake related to medical condition as evidenced by pt being intubated and having a diet order of NPO. Goal: Patient will meet 75-100% of estimated needs by follow up Progress: N/A Interventions: Carb, mineral (sodium) modified diet, Composition, Rate, Route, IVF, Collaboration with other providers, prescription medication Monitoring/Evaluation: -Total energy intake, Total protein intake, Formula/Solution, IVF, Prescription medication, Modified diet Signed: Anayeli Souza RD, LD, [facility]
--- NOTE | 2019-02-01 15:48 | Progress Note ---
DATE: 02/01/2019 CHIEF COMPLAINT: Acute respiratory failure and fever. CONSULTING PHYSICIANS: 1. Jarrett Nelson M.D. with Infectious Disease. 2. Seth Garcia M.D. with Cardiology. 3. Geovany Lee M.D. with Pulmonary. SUBJECTIVE: The patient is intubated. at the bedside. Restraints in place, had fever this morning 101, remains intubated. PHYSICAL EXAMINATION: VITAL SIGNS: Temperature 99.9, pulse is 110, respirations 21, blood pressure 119/71, and pulse ox is 98% on vent. GENERAL: Resting in bed, intubated. LUNGS: Decreased breath sounds. HEENT: Normocephalic and atraumatic. CARDIOVASCULAR: Regular rate and rhythm. Tachycardic in the 100. ABDOMEN: Soft and nontender. NEUROLOGIC: Sedated. MUSCULOSKELETAL: Mild edema in the right lower extremity. SKIN: Right lower extremity redness and edema due to chronic lymphedema. LABORATORY DATA: WBC 8.75, hemoglobin is 10, hematocrit is 30, and platelet is 127. Sodium 133, potassium is 3.5, carbon dioxide is 30, BUN is 29, creatinine is 1.86, estimated GFR is 35, blood sugar 220, and calcium is 7.8. PT is 20, INR is 1.66, and aPTT is 53. IMPRESSION: 1. Sepsis on admission, unknown cause, urinary versus respiratory. Repeat blood culture is negative so far. Initial blood culture was positive for Actinetobacter. Continue with IV antibiotics. Infectious Disease on the case. 2. Acute respiratory failure, likely due to pulmonary edema and pneumonia. Continue Lasix IV, he has good urine output. Chest x-ray this morning is stable likely extubation today. 3. Elevated troponins, likely due to sepsis. We will defer to Cardiology. 4. Acute rhabdomyolysis. We will check CK levels. 5. Hypertension, now hypotensive. We will monitor and treat as needed. 6. Diabetes type 2. Continue sliding scale insulin and Lantus at night. 7. Anemia of chronic disease. We will continue to monitor closely and hold chemical anticoagulation. 8. History of chronic obstructive pulmonary disease, aware. Pulmonary is on the case. CPAP at night. 9. History of atrial fibrillation, currently rate is at 110 to 120. We will continue to monitor and treat as needed if blood pressure allows with beta serafin. 10. History of coronary artery disease with history of cardiac bypass. 11. Systolic congestive heart failure. Continue with Lasix. BNP 129, likely not on acute exacerbation. 12. Thrombocytopenia, likely due to sepsis. Platelet is improved to 127. 13. History of hyperlipidemia. We will continue statin when p.o. started. 14. Acute kidney injury with a history of chronic kidney disease 3. Creatinine is down to 1.86, which is close to his baseline. 15. Right lower extremity cellulitis. We will continue with IV antibiotics. 16. Urinary tract infection. Urine culture is positive for Escherichia coli with ESBL. 17. History of fall two weeks ago with left upper chest bruising. Continue to monitor. 18. Hypokalemia, which is resolved. 19. Deep vein thrombosis prophylaxis. We will hold chemical anticoagulation due to anemia. 20. Agitation. We will consult Psychiatry for psych evaluation. PLAN: Discussed treatment plan with at the bedside, and also psych evaluation pending, she is agreeable for medical management of his agitation only as needed, but wants to be called first. Dictated by EVELYNE Boone Gretchen Loco MD MY/MODL /[id number] MTDD
--- NOTE | 2019-02-01 16:23 | NUR ---
Pt currently intubated. CM called pt's Herb Alexandre for DPA. Called [phone] and left a VM for callback with CM's number and office number.
[2019-02-01] MEDS: ACETAMINOPHEN 650 MG SUPP PR PRN ×2 (16:41→22:25)
[2019-02-01] MEDS: METOPROLOL TARTRATE INJ 1 MG/ML VIAL IV PRN (17:03)
--- NOTE | 2019-02-01 17:55 | NUR ---
Sedation stopped at 0730. Patient lethargic but restless and moving around in the bed. Patient does not follow commands. Large bruise noted to left chest, patient's states its from a previous fall. Psyc consult placed due to patient having agitation on the floors. RN called Dr. Fernandez's office on multiple attempts for up to 15 minutes with no answer from staff at office. Anais NELSON informed of situation and she stated she would contact the Dr. Fernandez. Per Anais NELSON, patient's does not want any psych meds to be given without her consent, and that RN's will need to contact her before giving any medications and will attempt to calm patient down over the phone. Dr. Lee paged and informed of patients thick, frothy frequent oral secretions and informed that patient is becoming tachycardic up to 115bpm and maintaining. Orders given for prn metoprolol. Will continue to wean patient off ventilator.
[2019-02-01] MEDS: TERAZOSIN HCL 5 MG CAP PO SCH (20:30)
[2019-02-02] VITALS (34 sets, daily range): BP systolic 119–175; BP diastolic 48–86
[2019-02-02] MEDS: INSULIN REGULAR, HUMAN 100 UNIT/1 ML 3ML VIAL SQ SCH ×4 (00:19→18:00)
[2019-02-02] MEDS: ALBUTEROL SULF 0.083% NEB SOLN 3 ML NEB NEB SCH ×7 (02:55→23:55)
[2019-02-02] MEDS: IPRATROPIUM BROMIDE 0.02% 2.5 ML NEB NEB SCH ×6 (02:55→22:40)
[2019-02-02 05:33] LABS: BASOPHILS % 0.3 % (0.0-1.0); EOSINOPHILS # (AUTO) 0.3 (0.0-0.4); EOSINOPHILS % 2.7 % (0.0-6.0); HEMATOCRIT 30.5 % (38.2-49.6); HEMOGLOBIN 9.8 g/dL (14.0-18.0); LYMPHOCYTES # (AUTO) 1.1 (1.0-3.2); LYMPHOCYTES % 11.3 % (18.0-39.1); MEAN CORPUSCULAR HEMOGLOBIN 27.9 pg (28-32); MEAN CORPUSCULAR HGB CONC 32.1 g/dL (31-35); MEAN CORPUSCULAR VOLUME 86.9 fL (81-99); MONOCYTES # (AUTO) 1.4 (0.2-0.8); MONOCYTES % 14.5 % (4.4-11.3); NEUTROPHILS # (AUTO) 6.6 (2.1-6.9); NEUTROPHILS % 70.3 % (38.7-80.0); PLATELET COUNT 159 x10e3/uL (140-360); RED BLOOD COUNT 3.51 x10e6/uL (4.3-5.7); RED CELL DISTRIBUTION WIDTH 15.9 % (11.7-14.4)
[2019-02-02 05:53] LABS: ANION GAP 13.1 mmol/L (8-16); CALCIUM 7.9 mg/dL (8.4-10.2); CREATININE, SERUM 1.66 mg/dL (0.72-1.25); MAGNESIUM 1.6 MG/DL (1.3-2.1); POTASSIUM 3.1 mmol/L (3.5-5.1)
--- NOTE | 2019-02-02 06:27 | Diagnostic Imaging Report ---
Examination: Single AP view of the chest. COMPARISON: 02/01/2019. INDICATION: Fever, pneumonia sepsis. DISCUSSION: Lines/tubes: Right IJ central venous catheter with the tip projected on the cavoatrial junction, unchanged.. Endotracheal tube with distal tip above the reno, at the level distal clavicular junction, unchanged. Lungs and pleura: Redemonstration of increased density in the lower left hemithorax suggestive of pleural effusion and associated atelectasis versus consolidation, stable. Mild pulmonary venous congestion. Trace right pleural effusion. No pneumothorax. Heart and mediastinum: The cardiac silhouette is mildly enlarged. Bones and soft tissues: No acute bony abnormalities. Degenerative changes in the thoracic spine. IMPRESSION: No significant interval change. 1. Stable exam. Left pleural effusion and associated atelectasis versus pneumonia. 2. Stable supporting ET tube and right IJ central venous line. Signed by: Dr. Selene Castano M.D. on 02/02/2019 6:23 AM
[2019-02-02] MEDS: MEROPENEM 500MG/ NS 50ML 50 ML IV SCH ×3 (06:28→22:41)
[2019-02-02] MEDS: ENOXAPARIN SODIUM INJ 100 MG/ML SYR SC SCH (08:25)
[2019-02-02] MEDS: FUROSEMIDE INJ 10 MG/ML 4 ML VIAL IV SCH ×2 (08:25→16:09)
[2019-02-02] MEDS: INSULIN GLARGINE 100 UNITS/ML VIAL SQ SCH ×2 (08:30→22:30)
[2019-02-02] MEDS: GABAPENTIN 400 MG CAP PO SCH (09:00)
[2019-02-02] MEDS: METOPROLOL TARTRATE 25 MG TAB PO SCH ×2 (09:00→15:43)
[2019-02-02] MEDS: ASPIRIN 81 MG CHEW TAB PO SCH (09:00)
[2019-02-02] MEDS: LACTOBACILLUS ACIDOPHILUS CAPSULE PO SCH ×2 (09:00→15:44)
[2019-02-02 09:51] LABS: ABG HCO3 32 mmol/L (23-28); ABG PCO2 44 mmHg (41-51); ABG PH 7.47 (7.31-7.41); ABG PO2 84 mmHg (80-105)
[2019-02-02] MEDS ORDERED: POTASSIUM CHLORIDE 20MEQ/100ML 200 ML IV ONE (11:30)
--- NOTE | 2019-02-02 11:30 | NUR ---
PATIENT EXTUBATED TO 5LNC
[2019-02-02] MEDS ORDERED: HALOPERIDOL LACTATE 5 MG/ML VIAL IM PRN (11:45)
--- NOTE | 2019-02-02 11:47 | NUR ---
PULMONARY MEDICINE DATE: 02/02/2019 SUBJECTIVE: patient with improved mentation showing stability on ventilator 18/460/40/5 good wean parameters d5w at 65/ hr ivf discussion with . i notified the there was at least a moderate, if not high, risk for reintubation if no medications are given. given the difficult behavior scenario, upon reintubation i would recommend a tracheostomy-- she states they wouldn't want a tracheostomy. i notify that the alternative is that he would pass away, but she says that she believes he will make it. she agrees for DNR/DNI. psychiatry will pass by to build/consolidate on any advanced directives soon, i discussed with them and nursing. REVIEW OF SYSTEMS: cant get, intubated PHYSICAL EXAMINATION: VITAL SIGNS: vital signs noted per the chart record. GENERAL: intubated, on ventilator, awake, scanning the environment HEENT: Normocephalic, atraumatic. NECK: Supple. Large, midline. LUNGS: Bilateral air entry, decreased breath sounds especially at the left base. CARDIOVASCULAR: S1 and S2. No murmurs, rubs, or gallops. ABDOMEN: Soft and obese. EXTREMITIES: No clubbing. No cyanosis. 2+ edema. INTEGUMENT: No rash. No purpura. Mild venous stasis changes. LABORATORY DATA: k 3.1, cr 1.66, hco3 30. wbc 9.4 , hct 31, plt 159 IMPRESSION AND PLAN: 0. acute respiratory failure, intubated 1. ESBL ecoli UTI, severe sepsis 2. a baumanii septicemia 3. Pneumonia. 4. Chronic respiratory failure, cor pulmonale. 5. Left hemidiaphragmatic elevation. 6. Severe sleep apnea, reported ?17% oxygen level during previous sleep study. 7. Coronary artery disease, status post coronary artery bypass grafting long time ago. 8,. Hypertension. 9. Diabetes. 10. Osteoarthritis. 11. Chronic kidney disease. 12. Warfarin use. 13. low platelets 14. encephalopathy, toxic/metabolic 15. mild anemia NOS maintain intubated for now, possible extubation once psychiatry builds on the post-extubation plan DNR/DNI made psychiatrist to see patient today ventilator support for now sedation holiday / SAT D5w maintenance, more diuresis. will turn down the d5w dose. consider nutrition enteral -- NGT not feasible today, consider Dobbhoff if not extubatable Antibiotics as needed ABG PRN Thank you very much, Dr. Loco, for this consult. Please call for any questions. >30 min direct care today, multiple coordination and care
--- NOTE | 2019-02-02 12:00 | NUR ---
AND PATIENT IN AGREEMENT FOR DNAR. DR GRANADOS SPOKE WITH AND PATIENT. DR FUNG WELL. DR LIMA AWARE.
--- NOTE | 2019-02-02 12:44 | Consultation ---
DATE OF CONSULTATION: 02/02/2019 Psychiatric Consultation The patient evaluated and events noticed. REASON FOR CONSULTATION: To evaluate the patient's psychosis and mood. HISTORY OF PRESENT ILLNESS: The patient is an 78-year-old male, admitted to the hospital for fever, pneumonia, and sepsis. Psychiatric consultation is called to evaluate the patient's psychosis and mood. As per the medical record, the patient has history of hypertension, diabetes, COPD, AFib, CAD, CHF, high cholesterol, and CKD stage 3. Before evaluation, I discussed with nursing staff and informed that the patient was restless on the floor and also is apparently restless and agitated and he received p.r.n. medication. He is currently in the ICU due to respiratory failure. He is intubated at this time. Upon evaluation today, the patient is found to be in the room with his . He is intubated and restrained. He is alert. He is awake, but unable to speak. He does appear to be able to follow commands and attempts to answer question by nodding his head, but confused. His provides much of the information. As per the , the patient is independent on his ADLs at home. He carry out his Bible study at home, apparently high functioning. He does have frequent hospitalization due to a cellulitis to his lower extremity. The patient was on the medical floor and was anxious. is concerned of medication that can cause sedation. She feels he is particularly sensitive to these types of medication. She does not think he is depressed or anxious typically at home and he was sleeping even at home. No hallucinations while in the hospital as previous as per the . She does not want any medication that may cause any sedation from psych at this time. PAST PSYCHIATRIC HISTORY: He has no past psychiatric history. He has never attempted suicide. Does not drink, alcohol, or use any drugs. FAMILY HISTORY: None. SOCIAL HISTORY: Lives with his . MENTAL STATUS EXAM: The patient is an elderly male, obese, intubated and in restrain. Assessment is limited due to his current status. He is able to follow some commands, moving about. He is confused. CURRENT MEDICATIONS: 1. Insulin. 2. Lasix. 3. Lovenox. 4. Humulin. 5. Meropenem. 6. Atrovent. 7. Albuterol. 8. Dextrose. 9. Acetaminophen. 10. Metoprolol. 11. Dexmedetomidine. 12. Midazolam. 13. Neurontin 400 mg p.o. b.i.d. 14. Terazosin. 15. Metoprolol. 16. Lactobacillus. 17. Aspirin. 18. Dextrose. LABORATORY DATA: Current labs; WBC 9.40, RBC 3.51, hemoglobin 9.8, hematocrit 30.5, and platelets 159. Sodium 132, potassium 3.1, chloride 92, CO2 30, BUN 27, and creatinine 1.66. ASSESSMENT: Unspecified psychosis/delirium. PLAN: 1. Monitor for agitation. 2. Adjust Neurontin. 3. We will follow the patient and we will consider any additional psych medication if the patient continued to be agitated and also family members agree for the addition. Thank you for this consultation. Discussed with nursing staff at this time. Dictated by Chaya Graves PA-C MD JOON TorrezV/ZORAIDA /[id number]
[2019-02-02] MEDS: METOPROLOL TARTRATE INJ 1 MG/ML VIAL IV PRN ×2 (13:39→22:47)
[2019-02-02] MEDS ORDERED: GABAPENTIN 100 MG CAP PO SCH (15:00)
--- NOTE | 2019-02-02 15:31 | Progress Note ---
DATE: 02/02/2019 Cardiology Progress Note SUBJECTIVE: Extubated, weak. Denies any chest pain or shortness of breath. OBJECTIVE: VITAL SIGNS: Temperature 99 degrees, heart rate 83, respiratory rate 21, blood pressure 156/71, and O2 saturation 97% on vent support. GENERAL: In no acute distress. Alert. NECK: No JVD. CHEST: Decreased breath sounds bilaterally. CARDIOVASCULAR: Regular rate and rhythm. Normal S1, S2. No S3 or S4. Systolic ejection murmur 1/6. ABDOMEN: Soft. Bowel sounds positive. EXTREMITIES: 1+ edema. SKIN: Right lower extremity erythema noted. MUSCULOSKELETAL: Deconditioned. CARDIOVASCULAR MEDICATIONS: KCl 40 mEq has been given today, furosemide 40 mg b.i.d. IV, metoprolol tartrate 5 mg IV q.12 hours p.r.n., and aspirin 81 mg daily. STUDIES: White blood cells 9.4, hemoglobin 9.8, stable from 10 yesterday, and platelets 159. Sodium 132, potassium 3.1, chloride 92, bicarbonate 30, BUN 27, creatinine 1.6, glucose 189, calcium 7.9, magnesium 1.6. ASSESSMENT: 1. Acute respiratory failure, now status post vent support. 2. Sepsis in the setting of urinary tract infection. 3. Status post rhabdomyolysis. 4. Type 2 diabetes mellitus. 5. Hypertension. 6. History of atrial fibrillation. 7. Chronic obstructive pulmonary disease. 8. Acute kidney injury on chronic kidney disease, now improved. 9. Right leg cellulitis. 10. Recent mechanical fall with blunt chest trauma, resulting in rhabdomyolysis. 11. [id number] diastolic heart failure. 12. Coronary artery disease. RECOMMEND: 1. Continue aspirin. 2. Continue IV p.r.n. metoprolol for today and consider scheduling starting tomorrow. Blood pressure remains stable. 3. Recheck CK and LFTs; when normalized, consider resuming statin. 4. At this point, the patient and family voice the patient decision to be DNR/DNI, nurse at bedside. Seth Garcia MD AFV/MODL /[id number]
--- NOTE | 2019-02-02 16:23 | NUR ---
PATIENT WAS VERY CALM WHEN WAS PRESENT BUT SINCE SHE LEFT, PATIENT RESTLESS AND CONSTANTLY ATTMEPTING TO GET OUT OF BED. HE SWINGS HIS LEGS OVER BED RAILS NEARLY FALLING.
--- NOTE | 2019-02-02 18:16 | NUR ---
SPOKE WITH ELIJAH EXPLAINING PATIENT RESTLESSNESS. REQUESTED PERMISSION TO RESTRAIN OR GIVE HALDOL. SHE GAVE PERMISSION FOR HALDOL.
[2019-02-02] MEDS: DEXTROSE 5% 1,000 ML IV SCH (18:19)
--- NOTE | 2019-02-02 18:52 | Progress Note ---
DATE: 02/02/2019 CHIEF COMPLAINT: Acute respiratory failure and intermittent fever. CONSULTING PHYSICIANS: 1. Jarrett Nelson MD., with Infectious Disease. 2. Seth Garcia MD., with Cardiology. 3. Geovany Lee MD., with Pulmonary. 4. Gautam Fernandez MD., with Psychiatry. SUBJECTIVE: The patient has been extubated at 1130 this morning, no shortness of breath, alert and awake, but is restless, trying to get out of bed. PHYSICAL EXAMINATION: VITAL SIGNS: Temperature 99.1, pulse is 84, blood pressure is 142/107, pulse ox is 97% on 5 L nasal cannula. LABORATORY DATA: WBC 9.4, hemoglobin is 9.8, hematocrit is 30.5, and platelet is 159. Sodium is 132, potassium is 3.1, CO2 is 30, creatinine is 1.66, BUN is 27, blood glucose is 157. IMPRESSION AND PLAN: 1. Sepsis on admission, urinary tract infection versus pneumonia. Repeat blood cultures have been negative so far. Initial blood cultures showed Acinetobacter. We will continue with meropenem and tobramycin inhaler added per ID. 2. Acute respiratory failure, likely due to pneumonia versus pulmonary edema. Continue Lasix IV. Strict I and Os. Extubated this morning and is saturating 97% at 5 L O2 via nasal cannula. 3. Elevated troponins. Denies any chest pain, likely due to sepsis. 4. Right lower extremity cellulitis. We will continue with antibiotics. 5. Hypertension. We will continue with home medications. 6. Diabetes type 2. Continue sliding scale insulin and Lantus at night. 7. Anemia of chronic diseases. We will continue to monitor hemoglobin closely and hold anticoagulation. 8. History of chronic obstructive pulmonary disease. Oxygen dependent. May use CPAP at night. 9. History of atrial fibrillation, rate is controlled in 90s. We will continue with beta-blockers. 10. History of coronary artery disease with quadruple bypass. Aware. We will continue home medications. 11. Systolic congestive heart failure. Continue Lasix. BNP 126. Continue current treatment. 12. Thrombocytopenia is likely due to sepsis, today 157, resolved. 13. History of high cholesterol. Continue statin when p.o. started. 14. Acute kidney injury with a history of chronic kidney disease 3. Creatinine is 1.66, at his baseline. 15. Urinary tract infection. Urine culture positive for Escherichia coli with extended spectrum beta-lactamases. Continue meropenem. 16. History of fall two weeks ago with the left upper chest bruising. Bruising is improving. 17. Hypokalemia, likely due to Lasix. Replaced. 18. Agitation and restlessness. Psych has been consulted for evaluation. I discussed with family and is okay for Haldol 2 mg every 12 hours as needed. 19. Deep vein thrombosis prophylaxis. We will hold chemical anticoagulation due to anemia. 20. The patient is now DNR. Discussed with family and the patient plan, status post extubation this morning, we will continue with current medications and treatment. We will repeat labs in a.m. Further recommendations to follow. Dictated by EVELYNE Boone Gretchen Loco MD MY/MODL /[id number]
[2019-02-02] MEDS: TERAZOSIN HCL 5 MG CAP PO SCH (21:00)
[2019-02-02] MEDS: TOBRAMYCIN 40 MG/ML 2ML VIAL INH SCH (21:00)
--- NOTE | 2019-02-02 21:21 | NUR ---
Patient attempted to exit the bed despite all the safety precautions in place. 2 RN's at bedside to reposition patient. Patient comfortable in bed, safety precautions in place. Left room to gather cleaning supplies and patient was on floor leaning against bed upon return. No signs of injury to body or head. Patient assisted back to bed. Positioned comfortably. Safety precautions in place. VS stable, no changes from baseline. Dr. Loco, patients , charge lpn & warehouse delivery driver all notified within 30 min of fall. Message left with requesting a call back, awaiting call back. New order placed for restraints.
[2019-02-03] VITALS (25 sets, daily range): BP systolic 108–178; BP diastolic 32–106
--- NOTE | 2019-02-03 01:13 | Consultation ---
DATE OF CONSULTATION: 02/02/2019 ADDENDUM: The patient was seen later by Dr. Fernandez, and he saw the patient and spoke to the . She agreed later to have p.r.n. medication added for extreme agitation. Discussed with tail ripper regarding the case as well. ASSESSMENT: Unspecified psychosis/delirium. PLAN: 1. Plan is to discontinue Neurontin. 2. Add Ativan 2 mg IM q.6 hours as needed for severe agitation. Dictated by Chaya Graves PA-C Gautam Fernandez MD QTV/MODL /[id number]
[2019-02-03] MEDS: INSULIN REGULAR, HUMAN 100 UNIT/1 ML 3ML VIAL SQ SCH ×4 (01:14→17:40)
[2019-02-03 01:16] LABS: ABG HCO3 34 mmol/L (23-28); ABG PCO2 58 mmHg (41-51); ABG PH 7.37 (7.31-7.41); ABG PO2 106 mmHg (80-105)
[2019-02-03] MEDS: IPRATROPIUM BROMIDE 0.02% 2.5 ML NEB NEB SCH ×6 (02:00→23:55)
[2019-02-03] MEDS: ALBUTEROL SULF 0.083% NEB SOLN 3 ML NEB NEB SCH ×5 (02:00→19:42)
[2019-02-03 05:22] LABS: BASOPHILS % 0.2 % (0.0-1.0); EOSINOPHILS # (AUTO) 0.2 (0.0-0.4); EOSINOPHILS % 2.3 % (0.0-6.0); HEMATOCRIT 31.3 % (38.2-49.6); HEMOGLOBIN 9.9 g/dL (14.0-18.0); LYMPHOCYTES # (AUTO) 1.2 (1.0-3.2); MEAN CORPUSCULAR HEMOGLOBIN 27.7 pg (28-32); MEAN CORPUSCULAR HGB CONC 31.6 g/dL (31-35); MEAN CORPUSCULAR VOLUME 87.7 fL (81-99); MONOCYTES # (AUTO) 1.4 (0.2-0.8); MONOCYTES % 13.7 % (4.4-11.3); NEUTROPHILS # (AUTO) 7.3 (2.1-6.9); NEUTROPHILS % 71.1 % (38.7-80.0); PLATELET COUNT 180 x10e3/uL (140-360); RED BLOOD COUNT 3.57 x10e6/uL (4.3-5.7); RED CELL DISTRIBUTION WIDTH 15.7 % (11.7-14.4)
[2019-02-03 05:44] LABS: ALBUMIN 2.5 g/dL (3.5-5.0); ALBUMIN/GLOBULIN RATIO 0.6 (0.8-2.0); ANION GAP 15.1 mmol/L (8-16); CALCIUM 8.1 mg/dL (8.4-10.2); CREATININE, SERUM 1.46 mg/dL (0.72-1.25); MAGNESIUM 1.8 MG/DL (1.3-2.1); PHOSPHORUS 2.9 MG/DL (2.3-4.7); POTASSIUM 3.1 mmol/L (3.5-5.1)
--- NOTE | 2019-02-03 06:57 | Diagnostic Imaging Report ---
Examination: Single AP view of the chest. COMPARISON: 02/02/2019. INDICATION: Fever, pneumonia sepsis. DISCUSSION: Lines/tubes: Right IJ central venous catheter with the tip projected on the cavoatrial junction, unchanged.. Endotracheal tube has been removed. Lungs and pleura: Redemonstration of increased density in the lower left hemithorax suggestive of pleural effusion and associated atelectasis versus consolidation, stable. Mild pulmonary venous congestion. Trace right pleural effusion. No pneumothorax. Heart and mediastinum: The cardiac silhouette is mildly enlarged. Bones and soft tissues: No acute bony abnormalities. Degenerative changes in the thoracic spine. IMPRESSION: Interval removal of endotracheal tube, otherwise no significant change. Signed by: Dr. Selene Castano M.D. on 02/03/2019 6:53 AM
[2019-02-03] MEDS: MEROPENEM 500MG/ NS 50ML 50 ML IV SCH ×3 (07:07→22:48)
[2019-02-03] MEDS ORDERED: HYDRALAZINE HCL 20 MG/ML VIAL IV PRN (07:15)
[2019-02-03] MEDS: ENOXAPARIN SODIUM INJ 100 MG/ML SYR SC SCH (09:40)
[2019-02-03] MEDS: INSULIN GLARGINE 100 UNITS/ML VIAL SQ SCH ×2 (09:42→21:32)
[2019-02-03] MEDS: ASPIRIN 81 MG CHEW TAB PO SCH (09:45)
[2019-02-03] MEDS: LACTOBACILLUS ACIDOPHILUS CAPSULE PO SCH ×2 (09:46→16:44)
[2019-02-03] MEDS: METOPROLOL TARTRATE 25 MG TAB PO SCH ×2 (09:46→16:44)
[2019-02-03] MEDS: TOBRAMYCIN 40 MG/ML 2ML VIAL INH SCH ×2 (10:14→21:15)
--- NOTE | 2019-02-03 10:54 | NUR ---
ASSESSMENT: Spiritual concern Pt and hopeful. Pt's and stock turner at bedside. Intervention: Provided empathic listening and encouragement. Facilitated illness review. Outcome: Pt expressed appreciation for support. Will continue to follow as able. SAMANTA CLAYTON [facility] Spiritual Care Department O: [phone] Pager: [phone] ([phone] number calling from)
[2019-02-03] MEDS: FUROSEMIDE INJ 10 MG/ML 4 ML VIAL IV SCH ×2 (11:06→16:44)
[2019-02-03] MEDS ORDERED: POTASSIUM CHLORIDE 20MEQ/100ML 100 ML IV ONE ×2 (12:00→13:00)
--- NOTE | 2019-02-03 12:51 | NUR ---
PULMONARY MEDICINE DATE: 02/03/2019 SUBJECTIVE: patient extubated yesterday per psychiatry consult note, the patient agreed to have some level of psychotropic medications available on demand for emergency patient received on demand medication last night he tolerated bipap all night, mostly awake (didnt sleep at night well). he is sleeping in the day today more. d5w at 42 cc/hr ivf REVIEW OF SYSTEMS: cant get, intubated PHYSICAL EXAMINATION: VITAL SIGNS: vital signs noted per the chart record. GENERAL: extubated, mostly asleep on my exam. NAD HEENT: Normocephalic, atraumatic. NECK: Supple. Large, midline. LUNGS: Bilateral air entry, decreased breath sounds especially at the left base. CARDIOVASCULAR: S1 and S2. No murmurs, rubs, or gallops. ABDOMEN: Soft and obese. EXTREMITIES: No clubbing. No cyanosis. 1-2+ edema. INTEGUMENT: No rash. No purpura. Mild venous stasis changes. LABORATORY DATA: k 3.1, cr 1.46. 10 wbc. hct 31. plt 180 IMPRESSION AND PLAN: 0. acute respiratory failure, intubated/extubated 1. ESBL ecoli UTI, severe sepsis 2. a baumanii septicemia 3. Pneumonia. 4. Chronic respiratory failure, cor pulmonale. 5. Left hemidiaphragmatic elevation. 6. Severe sleep apnea, reported ?17% oxygen level during previous sleep study. 7. Coronary artery disease, status post coronary artery bypass grafting long time ago. 8,. Hypertension. 9. Diabetes. 10. Osteoarthritis. 11. Chronic kidney disease. 12. Warfarin use. 13. low platelets 14. encephalopathy, toxic/metabolic 15. mild anemia NOS extubated, dc ventilator DNR/DNI made psychiatrist managing medications/behavioral as family allows D5w maintenance, more diuresis. dc when patient eating well. ST evaluation today, consider PO diet Antibiotics as needed ABG PRN fix k Thank you very much, Dr. Loco, for this consult. Please call for any questions.
--- NOTE | 2019-02-03 15:11 | Progress Note ---
DATE: 02/03/2019 Psychiatric Progress Note SUBJECTIVE: The patient was evaluated and events noted. The patient is in the room in the ICU, Nursing in the room and is also nearby. He is no longer intubated. He is no longer in restraints. He is calm, cooperative, oriented to self, place, and situation. He stated he is doing very well. Feeling better. Denies any hallucination. Denies any suicidal ideation. Claims he is sleeping okay. Eating okay. He received p.r.n. Haldol yesterday at 1816, however nursing staff this morning says that he has not needed any p.r.n. medication. Discussed with nursing staff. does not appears to be having any concern at this time. We reviewed vital signs and labs. ASSESSMENT: Unspecified psychosis/delirium, improved significantly. PLAN: 1. Continue with Haldol 2 mg IM q.12 hours as needed. 2. Monitor for mood and agitation. 3. Supportive therapy. Dictated by Chaya Graves PA-C Gautam Fernandez MD QTV/ZORAIDA /[id number]
--- NOTE | 2019-02-03 16:06 | NUR ---
SPOKE WITH NURSE PT HAS A 1 ON 1 SITTER, AUTOMATICALLY DISQUALIFIES FROM A SNF. THEY WILL NOT CONSIDER PT, ALSO PT HAS HIGH FLOW O2 AND WILL NEED TO BE WEANED DOWN SOME, HIGHEST A SNF CAN GO IS 5.
--- NOTE | 2019-02-03 18:02 | Progress Note ---
DATE: 02/03/2019 CHIEF COMPLAINT: Acute respiratory failure and fever. CONSULTING PHYSICIANS: 1. Jarrett Nelson MD, with Infectious Disease. 2. Seth Garcia MD, with Cardiology. 3. Geovany Lee MD, with Pulmonary. 4. Gautam Fernandez MD, with Psychiatry. SUBJECTIVE: The patient is alert, awake, oriented x3 today, forgetful. No shortness of breath, fever, chest pain, or cough. Had an incident of slipping out of bed and on the floor yesterday. No trauma noted. Sitter ordered for agitation and restlessness. PHYSICAL EXAMINATION: VITAL SIGNS: Temperature is 97.9, pulse is 76, respirations 19, blood pressure 168/77, pulse ox is 99% on 3 L oxygen. GENERAL: No acute distress. HEENT: Normocephalic, atraumatic. LUNGS: Decreased breath sounds. CARDIOVASCULAR: Regular rate and rhythm. ABDOMEN: Soft and nontender. Obese. NEUROLOGIC: Alert, awake, and oriented x3. MUSCULOSKELETAL: Active ROM, mild edema in the lower extremities. SKIN: Right lower extremity redness improving and the left upper chest bruising is also improving. LABORATORY DATA: WBC 10.3, hemoglobin 9.9, and hematocrit 31.3. Chemistry, sodium is 138, potassium is 3.1, creatinine 1.46, estimated GFR is 46, blood sugar 141, AST 100, ALT 72. CK is 1234. IMPRESSION AND PLAN: 1. Sepsis on admission due to urinary tract infection versus pneumonia versus cellulitis. Initial blood culture was positive for Acinetobacter. Repeat blood culture has been negative so far. We will continue meropenem and further recs per ID. 2. Acute respiratory failure. He was intubated and extubated. Now on nasal cannula 3 L, saturating over 95%. 3. Pulmonary is on the case. Appreciate input. 4. Elevated troponins, likely due to sepsis. 5. Right lower extremity cellulitis. We will continue with antibiotics. 6. Hypertension. We will continue on home medications. 7. Diabetes type 2. Continue sliding scale insulin and Lantus at night. 8. Anemia of chronic disease. We will continue to monitor hemoglobin closely. 9. History of chronic COPD. Continue nebs and is oxygen dependent. 10. History of atrial fibrillation, now sinus rhythm. Rate controlled with beta blockers. 11. History of coronary artery disease with history of quadruple bypass where we will continue home medication. 12. Systolic congestive heart failure. Continue Lasix, not on exacerbation. 13. Thrombocytopenia is now resolved. 14. History of high cholesterol. We will hold statin due to elevated LFTs. 15. CKD three. Creatinine 1.46 at his baseline. 16. Urinary tract infection. We will continue with meropenem. 17. Mechanical fall 2 weeks ago with left upper chest bruising, improving. 18. Hypokalemia, likely due to Lasix. We will replace and recheck. 19. Agitation and restlessness. Psych has been consulted and sitter at the bedside. 20. Deep vein thrombosis prophylaxis. We will continue to hold anticoagulation due to anemia. PLAN: Continue supportive therapy, a chest x-ray with not much improvement. We will continue current treatment. Dictated by EVELYNE Boone Gretchen Loco MD MY/MODL /[id number]
[2019-02-03] MEDS: TERAZOSIN HCL 5 MG CAP PO SCH (21:34)
--- NOTE | 2019-02-03 21:58 | Progress Note ---
DATE: 02/03/2019 Cardiology Progress Note SUBJECTIVE: Denies any new complaints. OBJECTIVE: VITAL SIGNS: Temperature 98 degrees, heart rate 72, blood pressure 150/63, respiratory rate 24, and O2 saturation 100%. BMI 37. GENERAL: In no acute distress. Alert. NECK: No JVD. CHEST: Clear to auscultation. CARDIOVASCULAR: Regular rate and rhythm. Normal S1 and S2. Systolic ejection murmur. ABDOMEN: Soft and nontender. Bowel sounds positive. EXTREMITIES: Edema 1+ pulse in lower extremities. SKIN: Right leg erythema. CARDIOVASCULAR MEDICATIONS: Reviewed. 1. Terazosin. 2. Hydralazine 10 mg every 4 hours. 3. Aspirin 81 mg daily. 4. Lovenox 100 mg subcu daily. 5. Metoprolol tartrate 5 mg every 12 hours IV p.r.n. 6. Metoprolol tartrate 25 mg b.i.d. 7. Furosemide 40 mg b.i.d. STUDIES: Reviewed. Sodium 138, potassium 3.1, chloride 93, bicarbonate 33, BUN 23, creatinine 1.46, and glucose 141. White blood cells 10.3, hemoglobin 9.9, and platelets 180. INR 1.6, PT 20, and PTT 53. AST 100, ALT 72, alkaline phosphatase 69, and total bilirubin 1. ASSESSMENT: An 78-year-old man presents with: 1. Sepsis. 2. Pneumonia. 3. Anemia. 4. Acute on chronic diastolic heart failure. 5. Hypertension. 6. Acute kidney injury on chronic kidney disease. 7. Type 2 myocardial infarction. RECOMMENDATIONS: Continue current cardiovascular medications. Overall, the patient remains severely deconditioned and is undergoing evaluation by PT and OT. He is at fall risk at this point. He does not want to proceed with any invasive assessment of coronary artery disease at this point. Continue medical management. MD FREDDIE Walker/ZORAIDA /[id number]
[2019-02-04] VITALS (21 sets, daily range): BP systolic 101–159; BP diastolic 44–96
[2019-02-04] MEDS: DEXTROSE 5% 1,000 ML IV SCH ×2 (01:09→18:28)
[2019-02-04] MEDS: INSULIN REGULAR, HUMAN 100 UNIT/1 ML 3ML VIAL SQ SCH ×4 (01:12→16:48)
[2019-02-04] MEDS: IPRATROPIUM BROMIDE 0.02% 2.5 ML NEB NEB SCH ×6 (03:15→23:00)
[2019-02-04] MEDS: ALBUTEROL SULF 0.083% NEB SOLN 3 ML NEB NEB SCH ×6 (03:15→23:00)
--- NOTE | 2019-02-04 05:07 | Diagnostic Imaging Report ---
Examination: Single AP view of the chest. COMPARISON: 02/03/2019. INDICATION: Fever, pneumonia sepsis. DISCUSSION: Lines/tubes: Right IJ central venous catheter with the tip projected on the cavoatrial junction, unchanged. Lungs and pleura: Redemonstration of increased density in the lower left hemithorax suggestive of pleural effusion and associated atelectasis versus consolidation, stable. Mild pulmonary venous congestion. Trace right pleural effusion. No pneumothorax. Heart and mediastinum: The cardiac silhouette is obscured but however, appears enlarged. Bones and soft tissues: No acute bony abnormalities. Degenerative changes in the thoracic spine. Metallic density projected cardiac shadow. Median sternotomy wires and mediastinal clips. IMPRESSION: Stable exam. Left pleural effusion and associated atelectasis versus pneumonia. Signed by: Dr. Selene Castano M.D. on 02/04/2019 5:03 AM
[2019-02-04 05:47] LABS: ANION GAP 14.1 mmol/L (8-16); CREATININE, SERUM 1.39 mg/dL (0.72-1.25); MAGNESIUM 1.8 MG/DL (1.3-2.1); POTASSIUM 3.1 mmol/L (3.5-5.1)
[2019-02-04] MEDS: MEROPENEM 500MG/ NS 50ML 50 ML IV SCH ×3 (06:00→21:30)
[2019-02-04] MEDS: INSULIN GLARGINE 100 UNITS/ML VIAL SQ SCH ×2 (07:08→20:33)
[2019-02-04] MEDS ORDERED: POTASSIUM CHLORIDE 20MEQ/100ML 100 ML IV ONE (08:30)
[2019-02-04] MEDS: TOBRAMYCIN 40 MG/ML 2ML VIAL INH SCH ×2 (08:30→21:00)
[2019-02-04] MEDS: LACTOBACILLUS ACIDOPHILUS CAPSULE PO SCH ×2 (08:35→16:44)
[2019-02-04] MEDS: METOPROLOL TARTRATE 25 MG TAB PO SCH ×2 (08:35→16:44)
[2019-02-04] MEDS: FUROSEMIDE INJ 10 MG/ML 4 ML VIAL IV SCH ×2 (08:35→16:44)
[2019-02-04] MEDS: ASPIRIN 81 MG CHEW TAB PO SCH (08:35)
[2019-02-04] MEDS: ENOXAPARIN SODIUM INJ 100 MG/ML SYR SC SCH (08:35)
[2019-02-04] MEDS ORDERED: ACETAMINOPHEN 325 MG TAB PO PRN (10:45)
--- NOTE | 2019-02-04 13:26 | NUR ---
PULMONARY MEDICINE DATE: 02/04/2019 SUBJECTIVE: ramirez in place patient walked in the icu today eating well refused bipap last night NC 3 L/min oxygen d5w at 42 cc/hr ivf REVIEW OF SYSTEMS: cant get, intubated PHYSICAL EXAMINATION: VITAL SIGNS: vital signs noted per the chart record. GENERAL: extubated, mostly asleep on my exam. NAD HEENT: Normocephalic, atraumatic. NECK: Supple. Large, midline. LUNGS: Bilateral air entry, decreased breath sounds especially at the left base. CARDIOVASCULAR: S1 and S2. No murmurs, rubs, or gallops. ABDOMEN: Soft and obese. EXTREMITIES: No clubbing. No cyanosis. 1-2+ edema. INTEGUMENT: No rash. No purpura. Mild venous stasis changes. LABORATORY DATA: k 3.1, cr 1.4. hco3 34. wbc 10. hct 31, plt 180. IMPRESSION AND PLAN: 0. acute respiratory failure, intubated/extubated 1. ESBL ecoli UTI, severe sepsis 2. a baumanii septicemia 3. Pneumonia. 4. Chronic respiratory failure, cor pulmonale. 5. Left hemidiaphragmatic elevation. 6. Severe sleep apnea, reported ?17% oxygen level during previous sleep study. 7. Coronary artery disease, status post coronary artery bypass grafting long time ago. 8,. Hypertension. 9. Diabetes. 10. Osteoarthritis. 11. Chronic kidney disease. 12. Warfarin use. 13. low platelets 14. encephalopathy, toxic/metabolic 15. mild anemia NOS psychiatrist managing medications/behavioral as family allows D5w maintenance, more diuresis. dc IVF when patient eating well (?1-2 more days) d/c ramirez soon PO diet Antibiotics as needed encouraging bipap at night - deferred mainly fix k Thank you very much, Dr. Loco, for this consult. Please call for any questions.
[2019-02-04] MEDS ORDERED: POTASSIUM CHLORIDE 20 MEQ TAB CR PO PRN (13:30)
[2019-02-04] MEDS ORDERED: SALINE 0.65% NAS SOLN 1 SPRAY BTL PRN (14:00)
[2019-02-04] MEDS ORDERED: POTASSIUM CHLORIDE 20 MEQ TAB CR PO ONE (14:00)
--- NOTE | 2019-02-04 17:31 | Progress Note ---
DATE: 02/04/2019 CHIEF COMPLAINT: Shortness of breath and fever. CONSULTING PHYSICIANS: 1. Dr. Malcolm with Cardiology. 2. Dr. Geovany Lee with Pulmonary. 3. Dr. Jarrett Nelson with Infectious Disease. 4. Dr. Gautam Fernandez, Psychiatry. SUBJECTIVE: The patient is much more alert and awake, oriented x2 to 3 today. He is forgetful and still restless per nursing staff. He is resting in bed with no acute distress. Sitter at the bedside. PHYSICAL EXAMINATION: VITAL SIGNS: Temperature is 98.6, pulse is 82, respirations 20, pulse ox is 100% on nasal cannula 3 L. GENERAL: No acute distress. HEENT: Normocephalic and atraumatic. LUNGS: Decreased breath sounds. CARDIOVASCULAR: Regular rate and rhythm. ABDOMEN: Soft and nontender. Obese. NEUROLOGIC: Alert, awake, and oriented x3 and forgetful, restless at times. MUSCULOSKELETAL: Active ROM very mild edema in lower extremities. SKIN: Right lower extremity redness is improved, left upper chest bruising also improving. PSYCH: Normal affect, but gets anxious at times. Sitter at the bedside. LABORATORY DATA: Sodium is 138, potassium is 3.1, chloride 93, carbon dioxide is 34, creatinine is 1.39, estimated GFR is 49, blood glucose is 138, magnesium is 1.8. IMPRESSION: 1. Sepsis on admission due to urinary tract infection versus pneumonia versus cellulitis, now improving. Repeat blood culture is negative. Sputum culture with E coli and ESBL. We will continue with Merrem per ID recommendations. 2. Acute respiratory failure, was intubated, and now extubated. Respirations improved. Currently on nasal cannula 3 L, saturating over 95%. 3. Elevated troponins type 2, likely due to sepsis, Cardiology on the case. Appreciate input. 4. Right lower extremity cellulitis, now improving, continue antibiotics. 5. Hypertension, we will continue home medication. 6. Diabetes type 2, continue sliding scale insulin coverage and Lantus at night. 7. Anemia of chronic disease. We will continue to monitor hemoglobin closely and transfuse if hemoglobin is less than 7. 8. History of chronic obstructive pulmonary disease, continue nebs and O2 as needed. 9. History of atrial fibrillation, now in sinus rhythm. Rate controlled with beta blockers. 10. History of coronary artery disease with history of quadruple bypass. We will continue home medications. 11. Systolic congestive heart failure, stable. We will continue home medication. 12. Thrombocytopenia, now resolved. 13. High cholesterol, lifestyle modifications. 14. Chronic kidney disease, stage 3. Creatinine is improving. We will continue to monitor. 15. Hypokalemia, will replace and recheck. 16. Urinary tract infection. Continue Merrem for sensitivity. 17. Agitation and restlessness. Sitter at the bedside. Psych to evaluate and treat. 18. Deep vein thrombosis prophylaxis. We will hold on chemical anticoagulation due to anemia and until cleared by Cardiology. PLAN: The patient is medically stable to transfer to the Med/Surg unit, with telemetry. Physical therapy to evaluate and treat. Dictated by EVELYNE Boone Gretchen Loco MD MY/MODL /[id number]
--- NOTE | 2019-02-04 18:22 | NUR ---
Received patient from ICU, a/ox2-3, settled in room, call light within reach, IV in place and running, no resp distress, bed alarms in place, no c/o pains, will monitor.
--- NOTE | 2019-02-04 18:22 | History and Physical ---
SUBJECTIVE: No complaints today. Walking with assistance. OBJECTIVE: VITAL SIGNS: Temperature 98.6, heart rate 82, respiratory rate 20, blood pressure 144/66, and O2 saturation 100% on nasal cannula. GENERAL: In no acute distress, alert. NECK: No JVD. CHEST: Clear to auscultation. CARDIOVASCULAR: Regular rate and rhythm. Normal S1, S2. No S3, no S4. Systolic ejection murmur. ABDOMEN: Soft. EXTREMITIES: 1+ edema. SKIN: Right leg erythema. CARDIOVASCULAR MEDICATIONS: Reviewed. Furosemide 40 mg IV b.i.d., Lovenox 100 mg subcu daily, metoprolol tartrate 25 mg b.i.d., aspirin 81 mg daily, hydralazine 10 mg IV q.4 hours p.r.n. STUDIES: Reviewed. White blood cells 10, hemoglobin 9.9, platelets 180, and creatinine 1.3. ASSESSMENT: 1. Acute respiratory failure, now status post vent support. 2. Right leg cellulitis. 3. Acute kidney injury and chronic kidney disease. 4. Diabetes mellitus. 5. Hypertension. 6. Dyslipidemia. 7. Coronary artery disease. 8. Chronic diastolic heart failure with acute decompensation. 9. Type 2 myocardial infarction. RECOMMENDATIONS: 1. Continue rehabilitation. 2. Continue current cardiovascular medications, particularly diuretics, aspirin, beta-serafin. 3. Liver function tests were trending abnormal. 4. Consider reassessing and if normalized, can resume statin. MD FREDDIE Walker/ZORAIDA /[id number]
[2019-02-04] MEDS ORDERED: CLINDAMYCIN HC150 MG PO (18:53)
[2019-02-04] MEDS ORDERED: GABAPENTIN300 MG PO (18:53)
[2019-02-04] MEDS ORDERED: ASPIR 8181 MG PO (18:53)
[2019-02-04] MEDS ORDERED: WARFARIN SODIU2.5 MG PO ×2 (18:53)
[2019-02-04] MEDS ORDERED: KETOCONAZOLE120 ML TOP (18:53)
[2019-02-04] MEDS ORDERED: METOPROLOL TART25 MG PO (18:53)
[2019-02-04] MEDS ORDERED: METOLAZONE5 MG PO (18:53)
[2019-02-04] MEDS ORDERED: ATORVASTATIN CA20 MG PO (18:53)
[2019-02-04] MEDS ORDERED: ACIDOPHILUS1 EAC1 PO (18:53)
[2019-02-04] MEDS ORDERED: FUROSEMIDE40 MG PO (18:53)
[2019-02-04] MEDS ORDERED: TERAZOSIN HCL5 MG PO (18:53)
[2019-02-04] MEDS ORDERED: NOVOLOG100 UNIT/1 (18:53)
[2019-02-04] MEDS ORDERED: LEVEMIR100 UNIT/1 SQ (18:53)
[2019-02-04] MEDS ORDERED: LEVEMIR100 UNIT/1 (18:53)
--- NOTE | 2019-02-04 19:10 | NUR ---
Bedside rounds completed with morning nurse. Pt alert to name. Lying in bed HOB 75 degrees. Denies pain at this time. 1:1 sitter at bedside. Call light within reach. Will continue to monitor.
[2019-02-04] MEDS: MELATONIN 5 MG TABLET PO SCH (20:32)
[2019-02-04] MEDS: TERAZOSIN HCL 5 MG CAP PO SCH (20:32)
[2019-02-05] VITALS (7 sets, daily range): BP systolic 115–160; BP diastolic 51–70
[2019-02-05] MEDS: ALBUTEROL SULF 0.083% NEB SOLN 3 ML NEB NEB SCH ×6 (03:00→23:00)
[2019-02-05] MEDS: IPRATROPIUM BROMIDE 0.02% 2.5 ML NEB NEB SCH ×6 (03:00→23:00)
[2019-02-05] MEDS: INSULIN REGULAR, HUMAN 100 UNIT/1 ML 3ML VIAL SQ SCH ×4 (06:00→17:42)
[2019-02-05] MEDS: MEROPENEM 500MG/ NS 50ML 50 ML IV SCH ×3 (06:00→22:00)
[2019-02-05 06:11] LABS: ANION GAP 14.7 mmol/L (8-16); CALCIUM 8.5 mg/dL (8.4-10.2); CREATININE, SERUM 1.34 mg/dL (0.72-1.25); MAGNESIUM 1.9 MG/DL (1.3-2.1); POTASSIUM 3.7 mmol/L (3.5-5.1)
[2019-02-05] MEDS: ASPIRIN 81 MG CHEW TAB PO SCH (08:35)
[2019-02-05] MEDS: ENOXAPARIN SODIUM INJ 100 MG/ML SYR SC SCH (08:35)
[2019-02-05] MEDS: FUROSEMIDE INJ 10 MG/ML 4 ML VIAL IV SCH ×2 (08:35→16:58)
[2019-02-05] MEDS: LACTOBACILLUS ACIDOPHILUS CAPSULE PO SCH ×2 (08:35→17:43)
[2019-02-05] MEDS: METOPROLOL TARTRATE 25 MG TAB PO SCH ×2 (08:35→16:58)
[2019-02-05] MEDS: INSULIN GLARGINE 100 UNITS/ML VIAL SQ SCH ×2 (08:35→21:00)
[2019-02-05] MEDS: TOBRAMYCIN 40 MG/ML 2ML VIAL INH SCH ×2 (11:32→19:30)
--- NOTE | 2019-02-05 14:53 | NUR ---
Mccann was removed. Patient is due to void
--- NOTE | 2019-02-05 15:45 | NUR ---
Visit made by the Spiritual Care Department Pastoral Visitor, Laureano Fisher. PV provided pastoral presence, hospitality, and supportive listening. Pastoral Visitor informed pt/family of the scope of Director Of Guidance Services and availability. SAMANTA CLAYTON Mechanical Striper Spiritual Care Department O: [phone] Pager: [phone] ([phone] number calling from)
[2019-02-05] MEDS: DEXTROSE 5% 1,000 ML IV SCH (16:04)
--- NOTE | 2019-02-05 17:06 | NUR ---
PULMONARY MEDICINE DATE: 02/05/2019 SUBJECTIVE: 3 L/min oxygen NC delivery ate 75% of meals had behavioral issues last night. sleeping a lot during today daytime REVIEW OF SYSTEMS: no bleeding, no headaches PHYSICAL EXAMINATION: VITAL SIGNS: vital signs noted per the chart record. GENERAL: NAD, aox 3. HEENT: Normocephalic, atraumatic. NECK: Supple. Large, midline. LUNGS: Bilateral air entry, decreased breath sounds especially at the left base. CARDIOVASCULAR: S1 and S2. No murmurs, rubs, or gallops. ABDOMEN: Soft and obese. EXTREMITIES: No clubbing. No cyanosis. 1-2+ edema. INTEGUMENT: No rash. No purpura. Mild venous stasis changes. LABORATORY DATA: per EMR IMPRESSION AND PLAN: 0. acute respiratory failure, intubated/extubated 1. ESBL ecoli UTI, severe sepsis 2. a baumanii septicemia 3. Pneumonia. 4. Chronic respiratory failure, cor pulmonale. 5. Left hemidiaphragmatic elevation. 6. Severe sleep apnea, reported ?17% oxygen level during previous sleep study. 7. Coronary artery disease, status post coronary artery bypass grafting long time ago. 8,. Hypertension. 9. Diabetes. 10. Osteoarthritis. 11. Chronic kidney disease. 12. Warfarin use. 13. low platelets 14. encephalopathy, toxic/metabolic 15. mild anemia NOS psychiatrist managing medications/behavioral as family allows more diuresis. k supplement d/c ramirez PO diet Antibiotics as needed encouraging bipap at night - deferred mainly Thank you very much, Dr. Loco, for this consult. Please call for any questions.
--- NOTE | 2019-02-05 17:20 | Progress Note ---
DATE: 02/05/2019 CHIEF COMPLAINT: Shortness of breath and fever. SUBJECTIVE: The patient is transferred out of ICU. Currently seen in his room with sitter at the bedside. He is alert, awake, and oriented x3. Respirations are nonlabored, O2 saturations stable on 3 L of O2 via nasal cannula. OBJECTIVE: VITAL SIGNS: Temperature is 96.6, pulse is 95, respirations 20, blood pressure is 134/63, and pulse ox is 97% on 3 L of nasal cannula. GENERAL: No acute distress. HEENT: Normocephalic and atraumatic. LUNGS: Clear to auscultation. CARDIOVASCULAR: Regular rate and rhythm. ABDOMEN: Soft and nontender. NEUROLOGIC: Alert, awake, and oriented x3. Forgetful at times. MUSCULOSKELETAL: Active ROM. No edema. SKIN: Dry and intact. Left upper chest bruising healing. PSYCH: Normal affect. Still restless at times. Sitter at bedside. LABORATORY DATA: WBC 10.3, hemoglobin is 9.9, hematocrit is 31.3, and platelet is 180. IMPRESSION AND PLAN: 1. Sepsis on admission due to urinary tract infection versus pneumonia. Repeat blood culture is negative. Sputum culture with Escherichia coli and extended-spectrum beta-lactamases. We will continue with Merrem per ID recommendations. 2. Acute respiratory failure, now resolved. Continue O2 via nasal cannula at 3 L. 3. Elevated troponin, type 2 myocardial infarction, likely due to sepsis. Cardiology on the case. Appreciate input. 4. Lower extremity cellulitis, resolved. 5. Hypertension. Continue home medications. 6. Diabetes type 2. Continue sliding scale insulin. 7. Anemia of chronic disease. We will continue to monitor hemoglobin closely and transfuse if hemoglobin is less than 7. 8. History of chronic obstructive pulmonary disease. Continue nebs and he is oxygen-dependent. 9. History of atrial fibrillation, now in sinus rhythm, rate controlled with beta blockers. Anticoagulation held for possible cardiac workup. 10. History of coronary artery disease with history of quadruple bypass aware. Continue home medications. 11. Systolic congestive heart failure, stable, decompensated. 12. Thrombocytopenia, now resolved. 13. High cholesterol, lifestyle modifications discussed. 14. Chronic kidney disease, stage 3. Creatinine is improving at 1.3. 15. Hypokalemia, replaced. 16. Urinary tract infection. Continue Merrem per sensitivity. We will discontinue Mccann catheter. 17. Agitation and restlessness. Sitter at bedside. We will defer to Psych. 18. Deep vein thrombosis prophylaxis. Holding chemical anticoagulation due to anemia and until cleared by Cardiology. Plan is to continue current treatments. Discontinue Mccann today. Continue physical therapy and we will consult Case Management for SNF placement. Dictated by EVELYNE Boone Gretchen Loco MD MY/MODL /[id number]
[2019-02-05 17:26] LABS: INR 1.1; PROTHROMBIN TIME 14.7 seconds (11.9-14.5)
[2019-02-05] MEDS ORDERED: POTASSIUM CHLORIDE 20 MEQ TAB CR PO ONE (17:30)
[2019-02-05] MEDS: TERAZOSIN HCL 5 MG CAP PO SCH (17:42)
[2019-02-05] MEDS: WARFARIN SOD 2.5 MG TAB PO SCH (17:43)
--- NOTE | 2019-02-05 17:50 | Progress Note ---
DATE: 02/05/2019 Cardiology Progress Note SUBJECTIVE: No complaints today. Family at bedside. Confusion seems to be improving. Aware of surroundings today. Denies chest pain or shortness of breath. OBJECTIVE: VITAL SIGNS: Temperature 96.6, heart rate 95, respiratory rate 20, blood pressure 134/63, and O2 saturation 97% on 3 L/minute nasal cannula. GENERAL: In no acute distress. Alert. NECK: No JVD. CHEST: Clear to auscultation. CARDIOVASCULAR: Regular rate and rhythm. Normal S1 and S2. Systolic ejection murmur. ABDOMEN: Soft and nontender. Bowel sounds positive. \EXTREMITIES: 1+ edema overall improved. SKIN: With improved erythema and stable discoloration to both lower extremities. NEURO: Aware of surroundings today. Normal speech. CARDIOVASCULAR MEDICATIONS: Reviewed. Furosemide 40 mg b.i.d. IV, Lovenox 100 mg subcutaneous daily, metoprolol tartrate 25 mg b.i.d., aspirin 81 mg daily, terazosin 10 mg at bedtime, metoprolol tartrate 5 mg q.12 hours p.r.n. IV, and hydralazine 10 mg q.4 hours IV p.r.n. STUDIES: Reviewed. Chest x-ray with left pleural effusion, associated with atelectasis versus pneumonia. TELEMETRY: Sinus rhythm, some episodes of sinus tachycardia. ASSESSMENT: 1. Acute respiratory failure, status post ventilatory support. 2. Right leg cellulitis, improved. 3. Acute kidney injury on chronic kidney disease with improved acute kidney injury. 4. Diabetes mellitus. 5. Hypertension. 6. Dyslipidemia. 7. Coronary artery disease with history of aortocoronary bypass. 8. Chronic diastolic heart failure, status post acute decompensation. 9. Type 2 myocardial infarction in the setting of sepsis. RECOMMENDATIONS: 1. Rehab. 2. Continue current cardiovascular medication. 3. Monitor LFTs. If normalized, consider rechallenging with statin. Seth Garcia MD AFV/MODL /[id number]
--- NOTE | 2019-02-05 20:16 | NUR ---
RECEIVE DPT IN BED AOX2 RESPIRATIONS ARE EVEN AND UNLABORED ..TELE #12 SHOWS SR RT IJ NS AT 42 CC/HR .CONTINUE TO MONITOR
[2019-02-05] MEDS: MELATONIN 5 MG TABLET PO SCH (20:51)
[2019-02-06] VITALS (7 sets, daily range): BP systolic 123–192; BP diastolic 50–80
[2019-02-06] MEDS: ALBUTEROL SULF 0.083% NEB SOLN 3 ML NEB NEB SCH ×6 (03:00→23:00)
[2019-02-06] MEDS: IPRATROPIUM BROMIDE 0.02% 2.5 ML NEB NEB SCH ×6 (03:00→23:00)
[2019-02-06] MEDS: MEROPENEM 500MG/ NS 50ML 50 ML IV SCH ×3 (05:40→22:25)
[2019-02-06] MEDS: INSULIN REGULAR, HUMAN 100 UNIT/1 ML 3ML VIAL SQ SCH ×4 (06:00→17:09)
--- NOTE | 2019-02-06 07:00 | NUR ---
received am report from nurse and morning rounds done. pt is alert resting in bed, no s/s of distress. call light within reach and instructed pt to call nurse for help. family is at the bedside
[2019-02-06] MEDS: TOBRAMYCIN 40 MG/ML 2ML VIAL INH SCH (07:30)
--- NOTE | 2019-02-06 07:41 | NUR ---
PT RESTED DURING THE NIGHT .DENIES PAIN .BILATERAL LOWER EXTREMITIES SWOLLEN .BEDSIDE REPORT GIVEN TO THE ONCOMING NURSE
[2019-02-06] MEDS: INSULIN GLARGINE 100 UNITS/ML VIAL SQ SCH ×2 (09:00→21:36)
[2019-02-06] MEDS: ASPIRIN 81 MG CHEW TAB PO SCH (09:26)
[2019-02-06] MEDS: POTASSIUM CHLORIDE 20 MEQ TAB CR PO SCH (09:26)
[2019-02-06] MEDS: FUROSEMIDE INJ 10 MG/ML 4 ML VIAL IV SCH ×2 (09:27→17:08)
[2019-02-06] MEDS: METOPROLOL TARTRATE 25 MG TAB PO SCH ×2 (09:27→17:09)
[2019-02-06] MEDS: LACTOBACILLUS ACIDOPHILUS CAPSULE PO SCH ×2 (09:27→17:09)
--- NOTE | 2019-02-06 12:44 | NUR ---
PULMONARY MEDICINE DATE: 02/06/2019 SUBJECTIVE: patient continues on oxygen, NC delivery patient eating well mobilizing, reportedly very weak per REVIEW OF SYSTEMS: no bleeding, no headaches PHYSICAL EXAMINATION: VITAL SIGNS: vital signs noted per the chart record. GENERAL: NAD, AO x 3. HEENT: Normocephalic, atraumatic. NECK: Supple. Large, midline. LUNGS: Bilateral air entry, decreased breath sounds especially at the left base. CARDIOVASCULAR: S1 and S2. No murmurs, rubs, or gallops. ABDOMEN: Soft and obese. EXTREMITIES: No clubbing. No cyanosis. 1-2+ edema. INTEGUMENT: No rash. No purpura. Mild venous stasis changes. LABORATORY DATA: no new updates IMPRESSION AND PLAN: 0. acute respiratory failure, intubated/extubated 1. ESBL ecoli UTI, severe sepsis 2. a baumanii septicemia 3. Pneumonia. 4. Chronic respiratory failure, cor pulmonale. 5. Left hemidiaphragmatic elevation. 6. Severe sleep apnea, reported ?17% oxygen level during previous sleep study. 7. Coronary artery disease, status post coronary artery bypass grafting long time ago. 8,. Hypertension. 9. Diabetes. 10. Osteoarthritis. 11. Chronic kidney disease. 12. Warfarin use. 13. low platelets 14. encephalopathy, toxic/metabolic 15. mild anemia NOS psychiatrist managing medications/behavioral as family allows continue diuresis. k supplement PO diet Antibiotics as needed encouraging bipap at night - deferred mainly referral for the most rehab that the patient is eligible for. patient cites that the patient is very weak Thank you very much, Dr. Loco, for this consult. Please call for any questions.
[2019-02-06] MEDS: AMLODIPINE BESYLATE 5 MG TAB PO SCH (12:55)
--- NOTE | 2019-02-06 14:04 | Progress Note ---
DATE: 02/06/2019 Cardiology Progress Note SUBJECTIVE: Denies any chest pain or shortness short of breath. OBJECTIVE: VITAL SIGNS: Temperature 96.5, heart rate 79, respiratory rate 20, blood pressure 192/80, O2 saturation 98%, BMI 37. GENERAL: In no acute distress, alert. NECK: No JVD. CHEST: Clear to auscultation. CARDIOVASCULAR: Regular rate and rhythm. Normal S1 and S2. No S3, no S4. ABDOMEN: Soft, nontender. Bowel sounds positive. EXTREMITIES: Trace bilateral lower extremity edema. Improved erythema to the right lower extremity. NEURO: Normal speech. PSYCHIATRIC: Episodes of confusion continued to intermittently occur. CARDIOVASCULAR MEDICATIONS: Furosemide 40 mg b.i.d., KCl 20 mEq daily, warfarin 5 mg alternating with 7.5 mg, aspirin 81 mg daily, metoprolol tartrate 5 mg IV q.12 hours and p.o. 25 mg b.i.d. STUDIES: Reviewed. Sodium 139, potassium 3.7, chloride 94, bicarbonate 34, BUN 26, creatinine 1.3, glucose 103. White blood cells 10, hemoglobin 9.9, platelets 180. INR 1.1. AST 100, ALT 72, alkaline phosphatase 69. ASSESSMENT: An 78-year-old man presents with: 1. Acute on chronic diastolic heart failure. 2. Hypertension. 3. Status post severe sepsis with acute respiratory failure. 4. Status post extubation. 5. Status post acute kidney injury. 6. Anemia. 7. Right leg cellulitis. RECOMMENDATIONS: Continue current cardiovascular medications and add amlodipine to improve blood pressure control. Seth Garcia MD AFCecy/MODL /[id number]
--- NOTE | 2019-02-06 14:23 | NUR ---
Nutrition Intervention Note RD Recommendation(s) for Physician (02/06): -Consider 2 gm Na, 1800 ADA diet per MD. -BS monitoring and insulin management per MD. Plan of Care: RD following, monitoring for tolerance and adequacy. Glucerna once per day. Nutrition reason for involvement: f/u RD Assessment 02/06: Follow up: Pt was seen resting in bed with at bedside. Pt has been transferred out of the ICU, extubated, off of pressors and is now on the floor. Bedside swallow was performed on the , regular texture with thin liquids was recommended. Pt reports that his appetite is good and he thinks the food here is delicious. reported no N/V, had a BM yesterday and denied chewing or swallowing issues for the pt as well. Pt reports he also likes consuming the Glucerna. Pt has sitter prn now. Pt has been consuming 75% if meals per meal assessment. Spoke about pt in rounds, d/c planning is pending. Chart reviewed. Weight loss observed, which could be related to fluid/different scales. Will continue to monitor. 02/01: Pt seen today for f/u as he remains on vent with no EN. Pt discussed during am rounds, sedation decreased with plan for extubation today- TF rec's provided if pt remains intubated, RD rec's discussed during rounds. Pt awake, however not responsive to verbal stimuli at this time. Pt off pressor support. Current TF rec's remain appropriate to meet needs. 01/30: 78 YOM admitted for Afib with PMH listed below. Pt was first admitted to the floors but has since been intubated and sedated on versed within the ICU. Per nurse-plan is to extubate in the next couple of days. Will provide TF recommendations if needed. Pt will be meeting 95% of his recommended energy needs and 121% of his recommend protein needs with TF recommendation above. Pt is not on propofol or pressor support. No family at bedside. Within the EMR: levo is recorded in medication list, per nurse she has it in the room just in case it is needed, recommended to only trickle feed when hemodynamically stable, MAPS higher than 65 and pt is on less than 5 mcg/min of levo. Will continue to monitor. Principal Problems/Diagnoses: Afib with RVR PMH: history of diabetes mellitus type 2, hypertension, dyslipidemia, lymphedema, atrial fibrillation, morbid obesity, cor pulmonale, and history of recurrent right leg cellulitis, GI: LBM 02/05-per pt and ; abd: soft, non tender Skin: No PU per chart Labs: 02/06: POC GM: 303 02/01: Na 133, K 3.5, BUN 29, Cr 1.86, Gluc 220, POC Gluc 194-238 01/30: BUN 30, Creat 2.10, Gluc 180, Ca 7.5, B-natriuretic peptide 192 Meds: lovenox, versed, abx, insulin, gabapentin, probiotic, lasix, probiotic, K-Dur given, nebcin, Coumadin, hytrin, haldol, Ht: 70 in Wt: 290 lbs 02/06: 271 lbs BMI:41.7 kg/m^2 IBW:166 lbs Malnutrition Evaluation (01/30) The patient does not meet criteria for a specified degree of malnutrition at this time. Will re-evaluate at follow-up as appropriate. Nutrition Prescription (Diet Order): 1800 ADA Estimated Nutritional Needs: Calories: 2357-3936 (22-25kcal/day) Weight used : IBW: 75 kg Protein : 112-150 (1.5-2gram/protein/day) Weight used: IBW: 75 kg - Diet Adequacy: meeting calorie needs, meeting protein needs Diet Education Needs Assessment: Diet education not indicated, pt no appropriate at this time. Nutrition Care Level: mod Nutrition Diagnosis: Inadequate energy intake related to medical condition as evidenced by pt being intubated and having a diet order of NPO. Goal: Patient will meet 75-100% of estimated needs by follow up Progress: progressing Interventions: Carb, mineral (sodium) modified diet,Collaboration with other providers, prescription medication Monitoring/Evaluation: -Total energy intake, Total protein intake, Prescription medication, Modified diet Signed: Sue Dominguez RD, DEANNA
[2019-02-06] MEDS ORDERED: SODIUM CHLORIDE 0.9% 250ML 250 ML ONE (15:04)
--- NOTE | 2019-02-06 15:38 | NUR ---
SPOKE WITH SIGNED CHOICE FOR [facility], FILED IN CHART AND FAXED CLINICALS WITH [facility] TO [phone] RTF COMPLETED AND PUT WITH PACKET AT [facility].
--- NOTE | 2019-02-06 15:51 | Progress Note ---
DATE: 02/06/2019 SUBJECTIVE: The patient was evaluated and events noted. The patient is in the room with the . He is out of the ICU. He is calm and cooperative. He is not confused. states that he is almost at baseline, internal, physical and mental status. The patient denies any hallucination. He denies any suicidal or homicidal ideation. He is eating. He is sleeping intermittently. He is receiving his medication. Denies any side effects. ASSESSMENT: Unspecified psychosis/delirium, resolved. PLAN: 1. Continue with Haldol p.r.n. IM for extreme agitation. 2. Continue melatonin 5 mg p.o. at bedtime. 3. Supportive therapy. Dictated by Chaya Graves PA-C MD JOON TorrezV/MODL /[id number]
[2019-02-06 16:36] LABS: INR 1.01; PROTHROMBIN TIME 13.8 seconds (11.9-14.5)
[2019-02-06] MEDS ORDERED: WARFARIN SOD 2.5 MG TAB PO SCH (17:00)
--- NOTE | 2019-02-06 17:42 | Progress Note ---
DATE: 02/06/2019 CHIEF COMPLAINT: Shortness of breath and fever. SUBJECTIVE: Resting in bed with no acute distress, he denies any shortness of breath, fever, chills, nausea, vomiting, or abdominal pain. He is alert, awake, oriented x3. One-to-one sitter has been discontinued. PHYSICAL ASSESSMENT: VITAL SIGNS: Temperature is 96.8, pulse is 72, respirations 18, blood pressure 153/63, pulse ox is 96% on 3 L of O2. GENERAL: No acute distress. HEENT: Normocephalic, atraumatic. LUNGS: Clear to auscultation. CARDIOVASCULAR: Regular rate and rhythm. ABDOMEN: Soft and nontender, obese. NEUROLOGIC: Alert, awake and oriented x3. Forgetful at times. MUSCULOSKELETAL: Active ROM. No edema. SKIN: Dry and intact. PSYCH: Has normal affect, restless at times. LABORATORY DATA: Reviewed. PT 14.7, INR 1.1. IMPRESSION AND PLAN: 1. Sepsis on admission, now resolved. Continue Merrem per ID recommendations. 2. Acute respiratory failure, now resolved. Continue O2 via nasal cannula. 3. Elevated troponin, type 2 myocardial infarction, likely due to sepsis. Cardiology on the case. No chest pain. No further intervention needed at this time. 4. Right lower extremity cellulitis, resolved. 5. Hypertension. Continue home medication. Added Norvasc this a.m. 6. Diabetes type 2. Continue sliding scale insulin and Lantus at night. 7. Anemia of chronic disease. We will continue to monitor CBC. 8. History of chronic obstructive pulmonary disease, stable. Continue nebs and O2 via nasal cannula. 9. History of an atrial fibrillation with regular rate and rhythm. Continue beta-blockers and restarted Coumadin. 10. History of coronary artery disease with history of quadruple bypass, aware. Continue home medication. 11. Systolic congestive heart failure, stable. 12. Thrombocytopenia, now resolved. 13. High cholesterol. Lifestyle modification. Hold statin due to elevated LFTs. 14. Chronic kidney disease stage 3, creatinine 1.3. We will continue to monitor closely. 15. Urinary tract infection. Continue Merrem for sensitivity. Mccann has been discontinued and voiding without difficulties. 16. Deep vein thrombosis prophylaxis, currently on Coumadin. Plan is to continue current treatment, physical therapy, and pending SNF placement. Dictated by Sierra Zapata, ANP YiMD KAJAL Hernandez /[id number]
[2019-02-06] MEDS: MELATONIN 5 MG TABLET PO SCH (21:35)
[2019-02-06] MEDS: TERAZOSIN HCL 5 MG CAP PO SCH (21:35)
[2019-02-07 00:16] VITALS: BP 134/56
[2019-02-07] MEDS: INSULIN REGULAR, HUMAN 100 UNIT/1 ML 3ML VIAL SQ SCH ×3 (01:10→11:55)
[2019-02-07] MEDS: IPRATROPIUM BROMIDE 0.02% 2.5 ML NEB NEB SCH ×4 (03:00→14:41)
[2019-02-07] MEDS: ALBUTEROL SULF 0.083% NEB SOLN 3 ML NEB NEB SCH ×4 (03:00→14:42)
[2019-02-07 05:25] VITALS: BP 128/58
[2019-02-07] MEDS: MEROPENEM 500MG/ NS 50ML 50 ML IV SCH ×2 (06:00→14:00)
[2019-02-07 06:26] LABS: BASOPHILS % 0.5 % (0.0-1.0); EOSINOPHILS # (AUTO) 0.4 (0.0-0.4); EOSINOPHILS % 4.7 % (0.0-6.0); HEMATOCRIT 30.2 % (38.2-49.6); HEMOGLOBIN 9.4 g/dL (14.0-18.0); LYMPHOCYTES # (AUTO) 1.4 (1.0-3.2); LYMPHOCYTES % 18.4 % (18.0-39.1); MEAN CORPUSCULAR HEMOGLOBIN 27.6 pg (28-32); MEAN CORPUSCULAR HGB CONC 31.1 g/dL (31-35); MEAN CORPUSCULAR VOLUME 88.6 fL (81-99); MONOCYTES # (AUTO) 0.8 (0.2-0.8); MONOCYTES % 11.1 % (4.4-11.3); NEUTROPHILS # (AUTO) 4.8 (2.1-6.9); NEUTROPHILS % 64.8 % (38.7-80.0); PLATELET COUNT 304 x10e3/uL (140-360); RED BLOOD COUNT 3.41 x10e6/uL (4.3-5.7); RED CELL DISTRIBUTION WIDTH 15.4 % (11.7-14.4)
[2019-02-07 06:36] LABS: INR 1.01; PROTHROMBIN TIME 13.8 seconds (11.9-14.5)
[2019-02-07 06:40] LABS: ANION GAP 13.8 mmol/L (8-16); CALCIUM 8.5 mg/dL (8.4-10.2); CREATININE, SERUM 1.44 mg/dL (0.72-1.25); POTASSIUM 3.8 mmol/L (3.5-5.1)
--- NOTE | 2019-02-07 07:00 | NUR ---
RECEIVED AM REPORT FROM NURSE AND MORNING ROUNDS DONE. PT IS ALERT RESTING IN BED, NO S/S OF DISTRESS. CALL LIGHT WITHIN REACH AND INSTRUCTED PT TO CALL NURSE FOR HELP. SIDE RAILS UP AND BED IN LOWEST POSITION
--- NOTE | 2019-02-07 07:13 | NUR ---
REPORT GIVEN TO ONCOMING NURSE.WALKING ROUNDS MADE.PT RESTING IN BED WITH NO S/S OF DISTRESS.
[2019-02-07] MEDS: INSULIN GLARGINE 100 UNITS/ML VIAL SQ SCH (09:00)
[2019-02-07 09:02] VITALS: BP 151/67
[2019-02-07] MEDS: POTASSIUM CHLORIDE 20 MEQ TAB CR PO SCH (09:09)
[2019-02-07] MEDS: ASPIRIN 81 MG CHEW TAB PO SCH (09:09)
[2019-02-07] MEDS: AMLODIPINE BESYLATE 5 MG TAB PO SCH (09:10)
[2019-02-07] MEDS: METOPROLOL TARTRATE 25 MG TAB PO SCH ×2 (09:10→17:00)
[2019-02-07] MEDS: LACTOBACILLUS ACIDOPHILUS CAPSULE PO SCH ×2 (09:10→17:35)
[2019-02-07] MEDS: FUROSEMIDE INJ 10 MG/ML 4 ML VIAL IV SCH (09:23)
[2019-02-07 09:29] VITALS: BP 151/67
[2019-02-07] MEDS: TOBRAMYCIN 40 MG/ML 2ML VIAL INH SCH (10:45)
[2019-02-07 11:40] VITALS: BP 119/50
--- NOTE | 2019-02-07 13:00 | NUR ---
PULMONARY MEDICINE DATE: 02/07/2019 SUBJECTIVE: patient with improved mentation. no longer has a sitter not eating much, due to ?preferences remains on oxygen by DC REVIEW OF SYSTEMS: no bleeding, no headaches PHYSICAL EXAMINATION: VITAL SIGNS: vital signs noted per the chart record. GENERAL: NAD, AO x 3. HEENT: Normocephalic, atraumatic. NECK: Supple. Large, midline. LUNGS: Bilateral air entry, decreased breath sounds especially at the left base. CARDIOVASCULAR: S1 and S2. No murmurs, rubs, or gallops. ABDOMEN: Soft and obese. EXTREMITIES: No clubbing. No cyanosis. 1-2+ edema. INTEGUMENT: No rash. No purpura. Mild venous stasis changes. LABORATORY DATA: no new updates IMPRESSION AND PLAN: 0. acute respiratory failure, intubated/extubated 1. ESBL ecoli UTI, severe sepsis 2. a baumanii septicemia 3. Pneumonia. 4. Chronic respiratory failure, cor pulmonale. 5. Left hemidiaphragmatic elevation. 6. Severe sleep apnea, reported ?17% oxygen level during previous sleep study. 7. Coronary artery disease, status post coronary artery bypass grafting long time ago. 8,. Hypertension. 9. Diabetes. 10. Osteoarthritis. 11. Chronic kidney disease. 12. Warfarin use. 13. low platelets 14. encephalopathy, toxic/metabolic 15. mild anemia NOS continue medications/behavioral redirection as per psychiatry. patient is much better continue diuresis. k supplement PO diet Antibiotics as needed encouraging bipap at night - deferred mainly SNF referral Thank you very much, Dr. Loco, for this consult. Please call for any questions.
--- NOTE | 2019-02-07 13:31 | NUR ---
RETIREMENT FACILITY DISCHARGE INFORMATION PATIENT HAS BEEN ACCEPTED TO: NAME: CHUCKY MILLIGAN [facility] ADDRESS: [address] [place] [address], [place] [address] ACCEPTING MD: JANIE ROOM:[id number] NURSE CALL REPORT TO:
--- NOTE | 2019-02-07 13:59 | NUR ---
EDUCATED ABOUT IMM, SIGNED, FILED IN CHART, WITH COPY LEFT WITH FAMILY AT BEDSIDE.
--- NOTE | 2019-02-07 14:51 | Progress Note ---
DATE: 02/07/2019 CHIEF COMPLAINT: Shortness of breath and fever, now improving. SUBJECTIVE: Sitting up in bed with at the bedside, eating his lunch. No shortness of breath or acute distress noted. No fever, chills, nausea, vomiting, chest pain, abdominal pain. Awaiting on SNF placement. PHYSICAL ASSESSMENT: VITAL SIGNS: Temperature 97.8, pulse is 70, respirations 20, blood pressure 119/50, pulse ox is 95% on 4 L. GENERAL: No acute distress. HEENT: Normocephalic, atraumatic. LUNGS: Decreased breath sounds. CARDIOVASCULAR: Regular rate and rhythm. ABDOMEN: Soft and nontender, obese. NEUROLOGIC: Alert, awake oriented x3, forgetful. MUSCULOSKELETAL: Active ROM. No edema. SKIN: Dry and intact. Very dry skin on the face. PSYCH: Normal affect, restless at nighttime only. LABORATORY DATA: WBC 7.46, hemoglobin is 9.4, hematocrit is 30.2. Sodium is 139, potassium is 3.8, carbon dioxide is 35, BUN is 28, creatinine is 1.44, estimated GFR is 47, glucose 180. INR is 1.01. IMPRESSION AND PLAN: 1. Sepsis on admission due to pneumonia versus cellulitis, now resolved. Continue Merrem per Infectious Disease recommendations. 2. Acute respiratory failure, now resolved. No respiratory distress, on nasal cannula. 3. Elevated troponin, type 2 myocardial infarction, likely due to sepsis. Cardiology on the case. No chest pain. No further intervention needed at this time. 4. Right lower extremity cellulitis, now resolved. 5. Hypertension. Continue home medication. 6. Diabetes. Continue sliding scale insulin and we will increase Lantus at nighttime. 7. Anemia of chronic disease. We will continue to monitor. Hemoglobin is stable at 9.4. 8. History of chronic obstructive pulmonary disease, stable. Continue nebs and O2 via nasal cannula. 9. History of atrial fibrillation, now in normal sinus rhythm. Continue beta-blockers and Coumadin for anticoagulation. 10. History of coronary artery disease with history of quadruple bypass aware. Continue home medications. 11. Systolic congestive heart failure, stable. 12. High cholesterol. Lifestyle modification. We will hold statin due to elevated LFTs. 13. Chronic kidney disease stage 3. Creatinine is 1.4. We will continue to monitor closely. We will change IV Lasix to p.o. Lasix. 14. Urinary tract infection. Continue Merrem per sensitivity. 15. Deep vein thrombosis prophylaxis, currently on Coumadin. Plan is to continue current treatment. Physical therapy and SNF eval and placement. Dictated by EVELYNE Boone Sabaching Mauri Loco MD MY/MODL /[id number]
--- NOTE | 2019-02-07 15:10 | NUR ---
NOTIFIED NURSE THAT THE ER TOOK THE PT'S [place] RING AND GAVE IT TO SECURITY. RN CALLED SECURITY AND WAS ABLE TO RETRIEVE THE RING. RN HANDED OFF THE RING TO THE WHO IS AT THE BEDSIDE.
--- NOTE | 2019-02-07 15:12 | NUR ---
GAVE REPORT TO ANDREW CHAPMAN AT [facility] [phone]
[2019-02-07 16:50] VITALS: BP 107/61
[2019-02-07] MEDS: WARFARIN SOD 2.5 MG TAB PO SCH (17:35)
[2019-02-07] MEDS ORDERED: FUROSEMIDE 40 MG TAB PO SCH (18:00)
--- NOTE | 2019-02-07 19:28 | Progress Note ---
DATE: 02/07/2019 Cardiology Progress Note SUBJECTIVE: Denies any chest pain or shortness of breath. OBJECTIVE: VITAL SIGNS: Temperature 97.8, heart rate 70, respiratory rate 20, blood pressure 119/50, and O2 saturation 95% on 4 L/minute nasal cannula. GENERAL: In no acute distress, alert. NECK: No JVD. CHEST: Clear to auscultation. CARDIOVASCULAR: Regular rate and rhythm. Normal S1, S2. ABDOMEN: Soft, nontender. Bowel sounds are positive. EXTREMITIES: Trace edema. CARDIOVASCULAR MEDICATIONS: Reviewed. Amlodipine 5 mg daily, metoprolol tartrate 25 mg b.i.d., aspirin 81 mg daily, KCl 20 mEq daily, warfarin 5 mg on Wednesday, , Wednesday, Wednesday and 7.5 mg on Wednesday, Wednesday, and Wednesday; metoprolol tartrate additional p.r.n. IV, and furosemide 40 mg b.i.d. p.o. STUDIES: Reviewed. White blood cell 7.4, hemoglobin 9.4, and platelets 304. INR 1. Sodium 139, potassium 3.8, chloride 94, bicarbonate 35, BUN 28, creatinine 1.4, glucose 183, calcium 8.5, and CK 361. Telemetry, sinus rhythm. ASSESSMENT: 1. Acute respiratory failure, status post ventilator support. 2. Right leg cellulitis, improved. 3. Acute kidney injury, on chronic kidney disease with improving acute kidney injury. 4. Diabetes mellitus. 5. Hypertension. 6. Dyslipidemia. 7. Coronary artery disease with history of aortocoronary bypass. 8. Chronic diastolic heart failure, status post acute decompensation. 9. Type 2 myocardial infarction in the setting of sepsis. RECOMMENDATIONS: 1. Continue rehabilitation. 2. Continue rest of cardiovascular medications. 3. Consider follow up LFTs if we will order for tomorrow; if normalized, can consider retrial of statin therapy. Seth Garcia MD AFV/MODL /[id number]
[2019-02-07] MEDS ORDERED: INSULIN GLARGINE 100 UNITS/ML VIAL SQ SCH (21:00)
--- NOTE | 2019-02-09 14:59 | Discharge Summary ---
PRIMARY CARE PHYSICIAN: Dr. Jacobson with [facility]. CONSULTING PHYSICIANS: 1. Dr. Malcolm. 2. Dr. Geovany Lee with Pulmonary. 3. Dr. Jarrett Nelson with Infectious Disease. 4. Dr. Gautam Fernandez with Psychiatry. DISCHARGE DIAGNOSES: 1. Sepsis on admission due to pneumonia versus cellulitis and urinary tract infection. 2. Acute respiratory failure. 3. Elevated troponin, type 2 myocardial infarction due to sepsis. 4. Right lower extremity cellulitis. 5. Hypertension. 6. Diabetes. 7. Anemia of chronic disease. 8. Chronic obstructive pulmonary disease. 9. Paroxysmal atrial fibrillation. 10. Coronary artery disease. 11. Systolic congestive heart failure. 12. High cholesterol. 13. Chronic kidney disease 3. 14. Urinary tract infection. HISTORY OF PRESENT ILLNESS: Per H and P. HOSPITAL COURSE: This is an 78-year-old male, who presented to the ER with complaints of fever and shortness of breath. During his stay, he was noted to have severe sepsis. On admission, chest x-ray showed pneumonia. Cultures were sent, showed urinary tract infection. Urine culture was positive for E coli, ESBL. Blood culture also was positive for Acinetobacter baumannii, was started on IV antibiotics. Overnight, he became very agitated and refused to use CPAP, so he continued to have hypoxia and rapid response was called and was transferred to the ICU, intubated for airway support. Once his respirations improved and sepsis resolved, he was transferred to the medical floor. Sputum culture also showed E coli with ESBL. Infectious Disease doctor was consulted and advised for Merrem IV and tobramycin inhaler b.i.d. to be given. He continues to improve. He was also noted to have elevated troponin, likely due to sepsis. Oyster Bed Worker was consulted and Coumadin was held for possible coronary artery workup. He denied any chest pain. No further intervention was needed. He was resumed back on Coumadin. He continued to do well. His right lower extremity cellulitis resolved. He was up and walking with physical therapy with assistance. Currently, he is alert, awake, oriented x3. Mild forgetfulness and restlessness at night. We will discharge to senior living facility for further rehabilitation before returning to home with . PHYSICAL EXAMINATION: VITAL SIGNS: Temperature 97.7, pulse is 76, respirations 20, blood pressure 107/61, pulse ox is 95% on 2 L of O2 via nasal cannula. GENERAL: No acute distress. HEENT: Normocephalic, atraumatic. LUNGS: Decreased breath sounds. CARDIOVASCULAR: Regular rate and rhythm. ABDOMEN: Soft and nontender, obese. NEUROLOGIC: Alert, awake, and oriented x3. Forgetful at times. MUSCULOSKELETAL: Active ROM. No edema. SKIN: Dry and intact. PSYCH: Normal affect. Restless and forgetfulness at nighttime. DISCHARGE CONDITION: Stable and improved. DISCHARGE MEDICATIONS: Please see MAR. He has completed Merrem 10 days IV antibiotics treatment. Central line to be removed. FOLLOWUP CARE: With PCP in 1 to 2 weeks. Follow up with Cardiology in 1 to 2 weeks. Total time of discharge is 35 minutes. Dictated by EVELYNE Boone Gretchen Loco MD MY/MODL /[id number] cc: [facility] Seen and examined on 02/07/2019, updated at the bedside. Agree with the findings and plan as documented by EVELYNE Zapata. DONNA
== END 2019-02-07 18:24 | DRG 871 ==
LOC: ER 02:41 → ERHOLD 05:35 → MED/SURG2 06:05 → ICU 01-30 08:50 → MED/SURG2 02-04 18:22
PROVIDERS: ADMIT Internal Medicine; ATTEND Internal Medicine
PROC: 5A1945Z Respiratory Ventilation, 24-96 Consecutive Hours (ICD-10-PCS; principal; 2019-01-30)
PROC: 0BH17EZ Insertion of Endotracheal Airway into Trachea, Via Natural or Artificial Opening (ICD-10-PCS; 2019-01-30)
PROC: 02HV33Z Insertion of Infusion Device into Superior Vena Cava, Percutaneous Approach (ICD-10-PCS; 2019-01-30)
PROC: B548ZZA Ultrasonography of Superior Vena Cava, Guidance (ICD-10-PCS; 2019-01-30)
DX: A41.51 Sepsis due to Escherichia coli [E. coli] (principal); J96.21 Acute and chronic respiratory failure with hypoxia; J15.9 Unspecified bacterial pneumonia; I50.33 Acute on chronic diastolic (congestive) heart failure; I21.A1 Myocardial infarction type 2; G92 Toxic encephalopathy; B37.1 Pulmonary candidiasis; M62.82 Rhabdomyolysis; N17.9 Acute kidney failure, unspecified; L03.115 Cellulitis of right lower limb; N39.0 Urinary tract infection, site not specified; I13.0 Hypertensive heart and chronic kidney disease with heart failure and stage 1 through stage 4 chronic kidney disease, or unspecified chronic kidney disease; A41.9 Sepsis, unspecified organism; N18.3 Chronic kidney disease, stage 3 (moderate); I25.10 Atherosclerotic heart disease of native coronary artery without angina pectoris; E11.22 Type 2 diabetes mellitus with diabetic chronic kidney disease; J44.9 Chronic obstructive pulmonary disease, unspecified; E78.5 Hyperlipidemia, unspecified; Z95.1 Presence of aortocoronary bypass graft; E11.42 Type 2 diabetes mellitus with diabetic polyneuropathy; Z83.3 Family history of diabetes mellitus; Z82.49 Family history of ischemic heart disease and other diseases of the circulatory system; Z88.1 Allergy status to other antibiotic agents; Z88.8 Allergy status to other drugs, medicaments and biological substances; I27.81 Cor pulmonale (chronic); G47.30 Sleep apnea, unspecified; M19.90 Unspecified osteoarthritis, unspecified site; Z79.01 Long term (current) use of anticoagulants; Z91.81 History of falling; S20.212A Contusion of left front wall of thorax, initial encounter; F29 Unspecified psychosis not due to a substance or known physiological condition; R45.1 Restlessness and agitation; D69.6 Thrombocytopenia, unspecified; A41.59 Other Gram-negative sepsis; R65.20 Severe sepsis without septic shock; D63.8 Anemia in other chronic diseases classified elsewhere; E87.6 Hypokalemia; Z66 Do not resuscitate; I48.0 Paroxysmal atrial fibrillation; Z79.4 Long term (current) use of insulin
CPT/HCPCS: 36415; 36556; 36600; 71045; 74470; 76937; 80048; 80053; 81001; 82550; 82553; 82805; 82948; 83605; 83735; 83880; 84100; 84484; 85007; 85025; 85027; 85610; 85730; 87040; 87070; 87071; 87086; 87186; 87205; 87400; 93005; 93306; 94002; 94003; 94640; 94660; 96372; 97139; 99284; C1751; J0330; J0456; J1630; J1650; J1815; J1817; J1940; J2020; J2250; J3260; J3480; J7030; J7050; J7070

== ENCOUNTER 2019-02-28 15:27 | Emergency (ER) | payer OTHER ==
[~2019-02-28] VITALS: Ht 180.3 cm; Wt 122.9 kg
[2019-02-28] MEDS ORDERED: TRIMETHOPRIM/SULFAMETHOXAZOLE 160-800 MG TAB PO NR (16:15)
[2019-02-28] MEDS ORDERED: DOXYCYCLINE HYCLATE TABLET 100 MG TAB PO NR (16:15)
[2019-02-28 16:47] LABS: BASOPHILS % 0.5 % (0.0-1.0); EOSINOPHILS # (AUTO) 0.5 (0.0-0.4); EOSINOPHILS % 5.6 % (0.0-6.0); HEMATOCRIT 34.8 % (38.2-49.6); HEMOGLOBIN 11.1 g/dL (14.0-18.0); LYMPHOCYTES # (AUTO) 1.6 (1.0-3.2); LYMPHOCYTES % 19.8 % (18.0-39.1); MEAN CORPUSCULAR HEMOGLOBIN 28.7 pg (28-32); MEAN CORPUSCULAR HGB CONC 31.9 g/dL (31-35); MEAN CORPUSCULAR VOLUME 89.9 fL (81-99); MONOCYTES # (AUTO) 0.6 (0.2-0.8); NEUTROPHILS # (AUTO) 5.5 (2.1-6.9); NEUTROPHILS % 66.9 % (38.7-80.0); PLATELET COUNT 191 x10e3/uL (140-360); RED BLOOD COUNT 3.87 x10e6/uL (4.3-5.7); RED CELL DISTRIBUTION WIDTH 16.3 % (11.7-14.4)
[2019-02-28 17:05] LABS: ALBUMIN 3.1 g/dL (3.5-5.0); ALBUMIN/GLOBULIN RATIO 0.9 (0.8-2.0); ANION GAP 13.7 mmol/L (8-16); CALCIUM 8.1 mg/dL (8.4-10.2); CREATININE, SERUM 1.55 mg/dL (0.72-1.25); POTASSIUM 3.7 mmol/L (3.5-5.1)
== END 2019-02-28 19:00 | disposition home or self-care (01) ==
LOC: ER 15:27
DX: L03.115 Cellulitis of right lower limb (principal); I10 Essential (primary) hypertension; E11.9 Type 2 diabetes mellitus without complications; I48.91 Unspecified atrial fibrillation; J44.9 Chronic obstructive pulmonary disease, unspecified; Z95.1 Presence of aortocoronary bypass graft; Z88.1 Allergy status to other antibiotic agents; Z88.8 Allergy status to other drugs, medicaments and biological substances; Z83.3 Family history of diabetes mellitus; Z82.49 Family history of ischemic heart disease and other diseases of the circulatory system
CPT/HCPCS: 36415; 80053; 85025; 93970; 99283

== ENCOUNTER 2019-12-26 10:58 | Inpatient (IN) | payer OTHER ==
[~2019-12-26] VITALS: Ht 177.8 cm; Wt 133.0 kg
--- OUTSIDE RECORDS SUMMARY | 2019-12-26 11:12 | XMS REPORT | Clinical Summary ---
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 For 4 more days only Active lactulose (CHRONULAC) 20 Take 30 mLs 0 08/01201 gram/30 mL solution (20 g total) 5 by mouth 2 (two) times daily. Active potassium chloride SA Take 1 tablet 0 08/02/19 1 (K-DUR,KLOR-CON) 20 MEQ (20 mEq 5 tablet total) by mouth daily. Active tamsulosin (FLOMAX) 0.4 Take 2 0 08/01/ 201 mg Cp24 24 hr capsule capsules (0.8 [...] a known hx of CAD s/p PCI t o RCA ~2004. C 01/2013 showed occluded circumflex and OM1 with prograde collaterals. The right coronary artery showed a slig ht ostial lesion and the proximal RCA stent and 30-40% distal RCA lesion. [facility] 06/2014 at [facility]. Cath film reviewed by his instrument designer, Dr. Moeller, and she reported the followin g findings: LM 60% stenosis, RI 90%, LCx occluded, RCA distal 70%. Diabetes 02/01/2013 Mixed hyperlipidemia 02/01/2013 Benign essential hypertension 02/01/2013 Morbid obesity 02/01/2013 S/P coronary artery stent placement - RCA stent - 200 5-200502/01/2013 Social History Date Tobacco Use Types Packs/Day [...] Shelf Expiration Date Model / Serial / L ot Implanted Type Area Manufactur er 05/15/2019 [id number] / / [id number] Sternal Zipfix,With Needle Sterile Cardiovasc N/A: Sternu m SYNTHES Pack Of 20 - [id number] [employer] Implanted: Qty: 1 on 07/18/2014 by Bertram Virk MD 05/15/[id number] / / [id number] Sternal Zipfix,With Needle Sterile Cardiovasc N/A: Sternu m SYNTHES Pack Of 20 - [id number] [employer] Implanted: Qty: 1 on 07/18/2014 by Bertram Virk MD Results Not on fileafter 12/25/2018 Insurance Payer Benefit Subscriber ID Type Phone Address Plan / Group [employer] xxxxxxxxx [facility] Advance Directives For more information, please contact: [facility] [address] [place] [id number] Date Inactivated Comments Code Status Date Activated 08/01/2014 6:25 PM Full Code 07/17/2014 1:37 PM This code status was determined by: Patient 02/03/2013 6:33 PM All possible means of suppor t, including: cardiac massage, mechanical ventilation, and defibrillation will be used to support life. Code ONE 02/03/2013 10:27 AM 02/03/2013 10:27 AM All possible means of suppor t including;cardiac massage, mechanical ventilation, and defibrillation will be used to support life. Code ONE 02/03/2013 6:51 AM
--- OUTSIDE RECORDS SUMMARY | 2019-12-26 11:13 | XMS REPORT | Continuity of Care Document ---
Author Author [facility] t Organization [facility] Address [address] [place] [address] Phone Unavailable Care Team Providers Care Adobe Layer Name Role Phone Otoniel PANDA M.D. PCP Jae LIMA Attphys Unavailable ROSARIO, S URVASHIICA Attphys Unavailable DARWIN, Kathy BARRIOS Attphys Unavailable NAYLOR, KEVIN Attphys Unavailable ROBBINKY, SHAYAN Attphys Unavailable Jae LIMA Admphys Unavailable DARWIN, Kathy BARRIOS Admphys Unavailable NAYLOR, KEVIN Admphys Unavailable Payers Payer Name Policy Type Policy Number Effective Date Expiration Date Terrance Fournier Plus [id number] 2018 00:00:00 [facility] [id number] 2018 00:00:00 [facility] Problems Condition Name Condition Details Condition Category Status Onset Date Resolution Date Last Treatment Date Treating Clinician Comments Source Cellulitis and abscess of lower extremity Abscess or cellulitis of leg Problem Active 2015-11-12 00:00:00 [facility] Diabetes mellitus Diabetes Problem Active 2015-11-12 00:00:00 [facility] Fever Fever Problem Active 2015-11-12 00:00:00 [facility] Fever with chills Fever and chills Problem Active 2015-11-12 00:00:00 [facility] 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 [facility] 01/2013 showed occluded circumflex and OM1 with prograde collaterals. The right coronary artery showed a slight ostial lesion and the proximal RCA stent and 30- 40% distal RCA lesion. [facility] 06/2014 at [facility]. Cath film reviewed by his wharf laborer, Dr. Moeller, and she reported the following findings: LM 60% stenosis, RI 90%, LCx occluded, RCA distal 70%. [facility] Diabetes Diabetes Disease Active 2013-02-01 00:00:00 [facility] Mixed hyperlipidemia Mixed hyperlipidemia Disease Active 00:00:00 [facility] Benign essential hypertension Benign essential hypertension Disease Active 2013-02-01 00:00:00 [facility] Morbid obesity Morbid obesity Disease Active 2013-02-01 00:00:00 [facility] S/P coronary artery stent placement - RCA stent - 2004 S/P coronary artery stent placement - RCA stent - [id number] Disease Active 2013-02-01 00:00:0 0 [facility] Weakness Weakness Problem Active [facility] Acute bronchitis Acute bronchitis Problem Active [facility] Acute renal failure superimposed on chronic kidney dis ease Acute on chronic renal failure Problem Active [facility] Acute on chronic renal insufficiency Acute on chronic renal insufficiency Problem Active [facility] Cellulitis Cellulitis Problem Active [facility] Uncontrolled diabetes mellitus Uncontrolled diabetes mellitus Problem Active [facility] Altered mental status Altered mental state Problem Active [facility] Cellulitis of right lower extremity Cellulitis of right lower ex tremity Problem Active [facility] Hyperglycemia Hyperglycemia Problem Active [facility] Renal failure Renal failure Problem Active [facility] Sepsis Sepsis Problem Active [facility] Pneumonia Pneumonia Problem Active [facility] Allergies, Adverse Reactions, Alerts Allergy Name Allergy Type Status Severity Reaction(s) Onset Date Inacti ve Date Treating Clinician Comments Source Quinapril Allergy to Substance Active Severe ANGIOEDEMA 2019-02-28 00: 00:00 [facility] Vancomycin Allergy to Substance Active Moderate 2019-02-28 00:00:0 0 [facility] Exenatide Allergy to Substance Active Moderate [facility] 2019-02-28 00:00:00 [facility] Sitagliptin Allergy to Substance Active Moderate [facility] 2019-02-28 00: 00:00 [facility] Quinapril Drug Allergy Active Swelling 2013-02-03 00:00:00 [facility] Exenatide Propensity to adverse reactions Active 12-24 00:00:00 SWELLS [facility] Sitagliptin Propensity to adverse reactions Active 2012 00:00:00 EFFECTS LIVER [facility] Social History Social Habit Start Date Stop Date Quantity Comments Source Sex Assigned At [facility] Smoking Status Start Date Stop Date Source Never smoker [facility] Medications Ordered Medication Name Filled Medication Name Start Date Stop Da te Current Medication? Ordering Clinician Indication Dosage Frequency Signature (SIG) Comments Components Source Linezolid (Zyvox) 600 Mg Tablet, 600 Mg Oral Linezolid (Zyvox) 600 Mg Tablet, 600 Mg Oral 2018-03-01 00:00:00 2018-04-27 00:00:00 No Jarrett Nelson Md 600 Every 12 Hours [facility] pregabalin (LYRICA) 150 MG capsule 2017-08-25 12:18:14 Yes 150mg Q.5D Take 150 mg by mouth 2 (two) times daily. [facility] metOLazone (ZAROXOLYN) 5 MG tablet 2017-08-25 12:18:14 Yes 5mg Q.5W Take 5 mg by mouth twice a week. [facility] metoprolol (LOPRESSOR) 25 MG tablet 2017-08-25 12:18:14 Yes 25mg QD Take 25 mg by mouth daily. [facility] pantoprazole (PROTONIX) 40 MG tablet 2017-08-25 12:18:14 Ye s 40mg QD Take 40 mg by mouth daily. [facility] terazosin (HYTRIN) 10 MG capsule 2017-08-25 12:18:14 Yes 10mg QD Take 10 mg by mouth nightly. [facility] warfarin (COUMADIN) 5 MG tablet 2017-08-25 12:18:14 Yes 5mg QD Take 5 mg by mouth daily TAKE 1 TAB DAILY EXCEPT 1.5 TABS MWF DIRECTED BY [facility]. . [facility] furosemide (LASIX) 40 MG tablet 2017-08-25 12:18:13 Yes 40mg QD Take 40 mg by mouth daily. [facility] insulin aspart (NOVOLOG) 100 unit/mL In 2017-08-25 12:18:13 Yes 35U Inject 35 Units subcutaneously 3 (three) times daily with meals. [facility] insulin detemir (LEVEMIR) 100 unit/mL (3 mL) In injection 2017-08-25 12:18:13 Yes 67U Q.5D Inject 67 Units subcuta neously 2 (two) times daily. [facility] or Non-Formulary Medication 2017-08-25 12:18:13 Yes KETOCONAZOLE 2% 3-5X/WK . [facility] Missing or Non-Formulary Medication 2017-08-25 12:18:13 Yes Q.5D 2 (two) times daily BETAMETHASONE DIPROPIONATE 0. 05% TO RASH . [facility] aspirin 81 MG EC tablet 2017-08-25 12:11:14 Yes 81mg QD Take 81 mg by mouth daily. [facility] atorvastatin (LIPITOR) 80 MG tablet 2017-08-25 12:11:14 Yes 80mg QD Take 80 mg by mouth daily. [facility] betamethasone, augmented, (DIPROLENE) 0.05 % ointment 2017-08-25 12:11:14 Yes Q.5D Apply topically 2 (two) times daily. [facility] Sulfamethoxazole/Trimethoprim (Bactrim Ds Tablet) 1 Ea ch Tablet, 1 Each Oral Sulfamethoxazole/Trimethoprim (Bactrim Ds Tablet) 1 Each Tablet, 1 Each Oral 2015-11-17 00:00:00 2016-08-13 00:00:00 No Celine Gerber 1 Twice A Day [facility] cefepime (MAXIPIME) MBP 1 g in 100 mL NS 2014-08-01 00:00:00 Yes 1g Q24H Inject 1 g intravenously daily. For 4 more days only [facility] lactulose (CHRONULAC) 20 gram/30 mL solution 2014-08-01 00:00:00 Yes 20g Q.5D Take 30 mLs (20 g total) by mouth 2 (two) times daily. [facility] potassium chloride SA (K-DUR,KLOR-CON) 20 MEQ tablet 2 00:00:00 Yes 20meq QD Take 1 tablet (20 mEq total) by mouth so graham. [facility] tamsulosin (FLOMAX) 0.4 mg Cp24 24 hr capsule 2014-08-01 00:00:0 0 Yes .8mg QD Take 2 capsules (0.8 mg total) by mouth daily. [facility] Aspirin (Aspir 81) 81 Mg Tablet. Aspirin (Aspir 81) 81 Mg Tablet. Yes 81 Daily [facility] Atorvastatin Calcium 20 Mg Tablet Atorvastatin Calcium 20 Mg Tablet Yes 80 Today At 9:00PM [facility] Clindamycin Hcl 150 Mg Capsule Clindamycin Hcl 150 Mg Capsule Yes 300 Three Times A Day [facility] Furosemide 40 Mg Tablet Furosemide 40 Mg Tablet Yes 40 Daily [facility] Gabapentin 300 Mg Capsule Gabapentin 300 Mg Capsule Yes 1200 Twice A Day [facility] Insulin Aspart (Novolog) 100 Unit/1 Ml Cartridge Insul in Aspart (Novolog) 100 Unit/1 Ml Cartridge Yes [facility] Insulin Detemir (Levemir) 100 Unit/1 Ml Vial Insulin D etemir (Levemir) 100 Unit/1 Ml Vial Yes 67 Every 12 Hours [facility] Insulin Detemir (Levemir) 100 Unit/1 Ml Vial Insulin D etemir (Levemir) 100 Unit/1 Ml Vial Yes [facility] Ketoconazole 120 Ml Shampoo Ketoconazole 120 Ml Shampoo Yes 1 Daily [facility] Lactobacillus Acidophilus (Acidophilus) 1 Each Tab.raoul w Lactobacillus Acidophilus (Acidophilus) 1 Each Tab.chew Yes Twice A Day [facility] Metolazone 5 Mg Tablet Metolazone 5 Mg Tablet Yes 5 Daily [facility] Metoprolol Tartrate 25 Mg Tablet Metoprolol Tartrate 25 Mg Tablet Yes 25 Twice A Day [facility] Terazosin Hcl 5 Mg Capsule Terazosin Hcl 5 Mg Capsule Yes [address] [facility] Warfarin Sodium 2.5 Mg Tablet Warfarin Sodium 2.5 Mg Tablet Yes 7.5 .mo We Fr [facility] Warfarin Sodium 2.5 Mg Tablet Warfarin Sodium 2.5 Mg Tablet Yes 5 .sa [place] [facility] Aspirin (Aspir 81) 81 Mg Tablet., 81 Mg Oral Aspirin (Aspir 81) 81 Mg Tablet., 81 Mg Oral 2019-02-04 00:00:00 No 81 Da gladys [facility] Atorvastatin Calcium 20 Mg Tablet, 80 Mg Oral Atorvast atin Calcium 20 Mg Tablet, 80 Mg Oral 2019-02-04 00:00:00 No 80 Today At 9:00 PM [facility] Furosemide 40 Mg Tablet, 40 Mg Oral Furosemide 40 Mg Tablet, 40 Mg Oral 2019-02-04 00:00:00 No 40 Daily [facility] Gabapentin 300 Mg Capsule, 1200 Mg Oral Gabapentin 300 Mg Ca psule, 1200 Mg Oral 2019-02-04 00:00:00 No 1200 Twice A Day [facility] Insulin Aspart (Novolog) 100 Unit/1 Ml Cartridge, Insu raúl Aspart (Novolog) 100 Unit/1 Ml Cartridge, 2019-02-04 00:00:00 No [facility] Insulin Detemir (Levemir) 100 Unit/1 Ml Vial, 67 Sub- Q Insulin Detemir (Levemir) 100 Unit/1 Ml Vial, 67 Sub-Q 2019-02-04 00:00:00 No 67 Every 12 Hours [facility] Ketoconazole 120 Ml Shampoo, 1 Udpkt Topically Ketocon azole 120 Ml Shampoo, 1 Udpkt Topically 2019-02-04 00:00:00 No 1 Daily [facility] Lactobacillus Acidophilus (Acidophilus) 1 Each Tab.raoul w, Oral Lactobacillus Acidophilus (Acidophilus) 1 Each Tab.chew, Oral 2019-02-04 00:00:00 No Twice A Day [facility] Metolazone 5 Mg Tablet, 5 Mg Oral Metolazone 5 Mg Tablet, 5 Mg O ral 2019-02-04 00:00:00 No 5 Daily [facility] Metoprolol Tartrate 25 Mg Tablet, 25 Mg Oral Metoprolo l Tartrate 25 Mg Tablet, 25 Mg Oral 2019-02-04 00:00:00 No 25 Twice A Day [facility] Terazosin Hcl 5 Mg Capsule, 10 Mg Oral Terazosin Hcl 5 Mg Capsul e, 10 Mg Oral 2019-02-04 00:00:00 No 10 Bedtime [facility] Warfarin Sodium 2.5 Mg Tablet, 5 Mg Oral Warfarin Sodi um 2.5 Mg Tablet, 5 Mg Oral 2019-02-04 00:00:00 No 5 .sa [place] [facility] Warfarin Sodium 2.5 Mg Tablet, 7.5 Mg Oral Warfarin So dium 2.5 Mg Tablet, 7.5 Mg Oral 2019-02-04 00:00:00 No 7.5 .mo We Fr [facility] Clindamycin Hcl 150 Mg Capsule, 300 Mg Oral Clindamyci n Hcl 150 Mg Capsule, 300 Mg Oral 2019-01-28 00:00:00 No 300 Three Times A Da y [facility] Insulin Detemir (Levemir) 100 Unit/1 Ml Vial, Insulin Detemir (Levemir) 100 Unit/1 Ml Vial, 2019-01-28 00:00:00 No [facility] Benzonatate (Tessalon Perle) 100 Mg Capsule, 200 Mg Or al Benzonatate (Tessalon Perle) 100 Mg Capsule, 200 Mg Oral 2018-12-14 00:00:00 No 200 Twice A Day as needed for Cough [facility] Duloxetine Hcl (Cymbalta) 20 Mg Capcr, 20 Mg Oral Dulo xetine Hcl (Cymbalta) 20 Mg Capcr, 20 Mg Oral 2018-12-14 00:00:00 No 20 Tiffany ly [facility] Pantoprazole Sodium (Protonix) 40 Mg Tablet.dr, 40 Mg Oral Pantoprazole Sodium (Protonix) 40 Mg Tablet.dr, 40 Mg Oral 2018-12-14 00:00:00 No [address] [facility] Phenol (Castellani [place] Modified) 29.57 Ml Liquid, 1 Dose Topically Phenol (Castellani [place] Modified) 29.57 Ml Liquid, 1 Dose Topically 2018-12-14 00:00:00 No 1 Bedtime [facility] Clindamycin Hcl 150 Mg Capsule, 300 Mg Oral Clindamyci n Hcl 150 Mg Capsule, 300 Mg Oral 2018-08-12 00:00:00 No 300 Four Times Daily [facility] Linezolid (Zyvox) 600 Mg Tablet, 600 Mg Oral Linezolid (Zyvox) 600 Mg Tablet, 600 Mg Oral 2018-08-12 00:00:00 No 600 Daily [facility] Econazole Nitrate 15 Gm Cream..g., 1 Udpkt Topical Eco nazole Nitrate 15 Gm Cream..g., 1 Udpkt Topical 2018-04-27 00:00:00 No 1 Daily [facility] Doxycycline Or , Doxycycline Or , 2016-11-03 00:00:00 [facility] Desonide 5 Gm Powder, Desonide 5 Gm Powder, 2016-08-13 00:00:[address] [facility] Gabapentin 600 Mg Tablet, 2 Tab Oral Gabapentin 600 Mg Tablet, 2 Tab Oral 2016-08-13 00:00:00 No 2 Twice A Day [facility] Metoprolol Tartrate 25 Mg Tablet, 25 Mg Oral Metoprolo l Tartrate 25 Mg Tablet, 25 Mg Oral 2016-08-13 00:00:00 No 25 Daily [facility] Procedures Procedure Date / Time Performed Performing Clinician [facility] Ultrasound guidance for vascular access 2019-01-30 00:00:00 FRANKI QUESADA [facility] INSERTION OF INFUSION DEV INTO SUP VENA CAVA, PERC APPROACH 2018-12-15 00:00:00 MEAGAN OCHOA [facility] CT of abdomen and pelvis without contrast 2018-06-08 00:00:00 CARROLL HICKS [facility] Ultrasound guidance for vascular access 2018-06-08 00:00:00 DENIS GRANADOS [facility] INSERTION OF INFUSION DEV INTO SUP VENA CAVA, PERC APPROACH 2018-06-08 00:00:00 RONALD SAVAGE [facility] Encounters Start Date/Time End Date/Time [facility] Source 2019-02-28 15:27:00 2019-02-28 19:00:00 Departed Emergency Room [facility] [id number] [facility] 2019-01-28 05:35:00 2019-02-07 18:24:00 Discharged Inpatient 1 CLARENCE CARROLL [facility] [id number] [facility] 2018-12-15 09:18:00 2018-12-18 10:23:00 Discharged Inpatient 1 ROSARIORICHARD GUZMAN [facility] [id number] [facility] 2018-08-10 19:02:00 2018-08-13 08:45:00 Discharged Inpatient 1 RICHARD PONCE [facility] [id number] [facility] 2018-06-05 12:17:00 2018-06-13 13:54:00 Discharged Inpatient 1 DENIS GRANADOS [facility] [id number] [facility] 2018-05-28 13:02:00 2018-05-30 14:30:00 Discharged Inpatient 1 CARROLL LIMA [facility] [id number] [facility] 2018-04-27 16:47:00 2018-04-30 14:56:00 Discharged Inpatient 1 KEVIN NAYLOR [facility] [id number] [facility] 2018-03-28 18:03:00 2018-04-01 14:39:00 Discharged Inpatient 1 CARROLL LIMA [facility] [id number] [facility] 2018-02-22 11:30:00 2018-03-02 15:27:00 Discharged Inpatient 1 CARROLL LIMA [facility] [id number] [facility] 2017-07-10 09:29:00 2017-07-16 14:42:00 Discharged Inpatient ER CARROLL LIMA [facility] [id number] [facility] 2016-11-01 09:57:00 2016-11-03 10:08:00 Discharged Inpatient [facility] [id number] [facility] Results Test Description Test Time Test Comments Results Result Comments Source Sodium Level 2019-02-28 17:06:00 Test Item Sodium Level (test code = 2951-2) 137 136-145 [facility] CenterPotassium Ppohv2082-51-76 17:06:00* Test Item Value Reference Range Interpretation Comments Potassium Level (test code = 2823-3) 3.7 3.5-5.1 [facility] CenterChloride Uxuax1470-37-17 17:06:00* Test Item Value Reference Range Interpretation Comments Chloride Level (test code = 2075-0) 96 98-107 L [facility] CenterCarbon Dioxide Nbkni1792-38-22 17:06:00* Test Item Value Reference Range Interpretation Comments Carbon Dioxide Level (test code = 2028-9) 31 22-29 H [facility] CenterAnion [id number] 17:06:00* Test Item Value Reference Range Interpretation Comments Anion Gap (test code = 40000-7) 13.7 8-16 [facility] CenterBlood Urea [id number] 17:06:00* Test Item Value Reference Range Interpretation Comments Blood Urea Nitrogen (test code = 3094-0) 28 7-26 H [facility] CenterCreatinine2019-11-05 17:06:00* Test Item Value Reference Range Interpretation Comments Creatinine (test code = 2160-0) 1.55 0.72-1.25 H [facility] CenterBUN/Creatinine Hatyg6564-02-99 17:06:00* Test Item Value Reference Range Interpretation Comments BUN/Creatinine Ratio (test code = 3097-3) 18 6-25 [facility] CenterEstimat Glomerular Filtration Rate 2019-02-28 17:06:00* Test Item Value Reference Range Interpretation Comments Estimat Glomerular Filtration Rate (test code = 958346769) 43 >60 L Ranges were taken from the National Kidney Disease Education Program and the [facility] [employer] literature.Reference ranges:60 or greater: Qlxymw65-72 ( for 3 consecutive months): Chronic kidney disease 15 or less: Kidney failureVal Verde Regional Medical CenterGlucose Izswd8137-71-44 17:06:00* Test Item Value Reference Range Interpretation Comments Glucose Level (test code = NQS9544) 160 74-118 H [facility] CenterCalcium Oatgn9403-91-04 17:06:00* Test Item Value Reference Range Interpretation Comments Calcium Level (test code = 63574-8) 8.1 8.4-10.2 L [facility] CenterTotal Kduebqcal0641-20-80 17:06:00* Test Item Value Reference Range Interpretation Comments Total Bilirubin (test code = 1975-2) 0.3 0.2-1.2 [facility] CenterAspartate Amino Transf (AST/SGOT) 2019-02-28 17:06:00* Test Item Value Reference Range Interpretation Comments Aspartate Amino Transf (AST/SGOT) (test code = Aspartate Amino Transf (AST/SGOT)) 24 5-34 [facility] CenterAlanine Aminotransferase (ALT/SGPT) 2019-02-28 17:06:00* Test Item Value Reference Range Interpretation Comments Alanine Aminotransferase (ALT/SGPT) (test code = 1742-6) 30 0-55 [facility] Wyzsdau1343-64-68 17:06:00* Test Item Value Reference Range Interpretation Comments Total Protein (test code = 2885-2) 6.6 6.5-8.1 [facility] CenterAlbumin2019-11-05 17:06:00* Test Item Value Reference Range Interpretation Comments Albumin (test code = 1751-7) 3.1 3.5-5.0 L [facility] CenterGlobulin2019-11-05 17:06:00* Test Item Value Reference Range Interpretation Comments Globulin (test code = 39928-8) 3.5 2.3-3.5 [facility] CenterAlbumin/Globulin Ugfci9146-76-35 17:06:00 * Test Item Value Reference Range Interpretation Comments Albumin/Globulin Ratio (test code = 1759-0) 0.9 0.8-2.0 [facility] CenterAlkaline Zomratozads2216-02-19 17:06:00* Test Item Value Reference Range Interpretation Comments Alkaline Phosphatase (test code = 6768-6) 76 40-150 [facility] CenterWhite Blood Koyqw3860-15-45 16:49:00* Test Item Value Reference Range Interpretation Comments White Blood Count (test code = 6690-2) 8.18 4.8-10.8 [facility] CenterRed Blood Eqrev4931-01-72 16:49:00* Test Item Value Reference Range Interpretation Comments Red Blood Count (test code = 789-8) 3.87 4.3-5.7 L [facility] CenterHemoglobin2019-11-05 16:49:00* Test Item Value Reference Range Interpretation Comments Hemoglobin (test code = 68226-9) 11.1 14.0-18.0 L [facility] CenterHematocrit2019-11-05 16:49:00* Test Item Value Reference Range Interpretation Comments Hematocrit (test code = 4544-3) 34.8 38.2-49.6 L [facility] CenterMean Corpuscular Zpaada0648-13-22 16:49:00* Test Item Value Reference Range Interpretation Comments Mean Corpuscular Volume (test code = 787-2) 89.9 81-99 [facility] CenterMean Corpuscular Xqijyqwnql4479-10-94 16:49:00* Test Item Value Reference Range Interpretation Comments Mean Corpuscular Hemoglobin (test code = 785-6) 28.7 28-32 [facility] CenterMean Corpuscular Hemoglobin Concent 2019-02-28 16:49:00* Test Item Value Reference Range Interpretation Comments Mean Corpuscular Hemoglobin Concent (test code = 786-4) 31.9 31-35 [facility] CenterRed Cell Distribution Feghp7982-60-75 16:49:00* Test Item Value Reference Range Interpretation Comments Red Cell Distribution Width (test code = 99988-8) 16.3 11.7 -14.4 H [facility] CenterPlatelet Wgklu4006-35-65 16:49:00* Test Item Value Reference Range Interpretation Comments Platelet Count (test code = 777-3) 191 140-360 [facility] CenterNeutrophils (%) (Auto)2019-02-28 16:49:00 * Test Item Value Reference Range Interpretation Comments Neutrophils (%) (Auto) (test code = 46713-9) 66.9 38.7-80.0 [facility] CenterLymphocytes (%) (Auto)2019-02-28 16:49:00 * Test Item Value Reference Range Interpretation Comments Lymphocytes (%) (Auto) (test code = 736-9) 19.8 18.0-39.1 [facility] CenterMonocytes (%) (Auto)2019-02-28 16:49:00* Test Item Value Reference Range Interpretation Comments Monocytes (%) (Auto) (test code = 5905-5) 7.0 4.4-11.3 [facility] CenterEosinophils (%) (Auto)2019-02-28 16:49:00 * Test Item Value Reference Range Interpretation Comments Eosinophils (%) (Auto) (test code = 713-8) 5.6 0.0-6.0 [facility] CenterBasophils (%) (Auto)2019-02-28 16:49:00* Test Item Value Reference Range Interpretation Comments Basophils (%) (Auto) (test code = 706-2) 0.5 0.0-1.0 [facility] CenterIM GRANULOCYTES %2019-02-28 16:49:00* Test Item Value Reference Range Interpretation Comments IM GRANULOCYTES % (test code = IM GRANULOCYTES %) 0.2 0.0- 1.0 [facility] CenterNeutrophils # (Auto)2019-02-28 16:49:00* Test Item Value Reference Range Interpretation Comments Neutrophils # (Auto) (test code = 751-8) 5.5 2.1-6.9 [facility] CenterLymphocytes # (Auto)2019-02-28 16:49:00* Test Item Value Reference Range Interpretation Comments Lymphocytes # (Auto) (test code = 09225-1) 1.6 1.0-3.2 [facility] CenterMonocytes # (Auto)2019-02-28 16:49:00* Test Item Value Reference Range Interpretation Comments Monocytes # (Auto) (test code = 742-7) 0.6 0.2-0.8 [facility] CenterEosinophils # (Auto)2019-02-28 16:49:00* Test Item Value Reference Range Interpretation Comments Eosinophils # (Auto) (test code = 711-2) 0.5 0.0-0.4 H [facility] CenterBasophils # (Auto)2019-02-28 16:49:00* Test Item Value Reference Range Interpretation Comments Basophils # (Auto) (test code = 704-7) 0.0 0.0-0.1 [facility] CenterAbsolute Immature Granulocyte (auto 2019-02-28 16:49:00* Test Item Value Reference Range Interpretation Comments Absolute Immature Granulocyte (auto (jeyson t code = Absolute Immature Granulocyte (auto) 0.02 0-0.1 [facility] CenterBedside Olnuhqg7430-00-63 06:52:00* Test Item Value Reference Range Interpretation Comments Bedside Glucose (test code = 11787-8) 217 70-120 H Meter ID: [id number] [facility]de [facility] Medical CenterCreatine Kinase 2019-02-07 12:49:00* Test Item Value Reference Range Interpretation Comments Creatine Kinase (test code = 2157-6) 361 30-200 H [facility] CenterCreatine Tvogss5874-04-17 12:49:00* Test Item Value Reference Range Interpretation Comments Creatine Kinase (test code = 2157-6) 361 30-200 H [facility] CenterProthrombin Xkrm6930-61-94 06:41:00* Test Item Value Reference Range Interpretation Comments Prothrombin Time (test code = 5902-2) 13.8 11.9-14.5 [facility] CenterProthromb Time International Ratio 2019-02-07 06:41:00* Test Item Value Reference Range Interpretation Comments Prothromb Time International Ratio (test code = 6301-6) 1.01 Oral Anticoagulant Therapy INR Values:1. Low Intensity Therapy 1.5 - 2.02 . Moderate Intensity Therapy 2.0 - 3.03. High Intensity Therapy(1) 2.5 - 3. 54. High Intensity Therapy(2) 3.0 - 4.05. Panic Value INR > 5.0 [facility] Fallsodium Mjrok1482-84-13 06:41:00* Test Item Value Reference Range Interpretation Comments Sodium Level (test code = 2951-2) 139 136-145 [facility] CenterPotassium Wwnqp8590-39-65 06:41:00* Test Item Value Reference Range Interpretation Comments Potassium Level (test code = 2823-3) 3.8 3.5-5.1 [facility] CenterChloride Vpbwx5460-47-78 06:41:00* Test Item Value Reference Range Interpretation Comments Chloride Level (test code = 2075-0) 94 98-107 L [facility] CenterCarbon Dioxide Tbfki7785-80-72 06:41:00* Test Item Value Reference Range Interpretation Comments Carbon Dioxide Level (test code = 2028-9) 35 22-29 H [facility] CenterAnion Soz5918-23-67 06:41:00* Test Item Value Reference Range Interpretation Comments Anion Gap (test code = 72606-4) 13.8 8-16 [facility] CenterBlood Urea Fkovvtra7752-54-98 06:41:00* Test Item Value Reference Range Interpretation Comments Blood Urea Nitrogen (test code = 3094-0) 28 7-26 H [facility] CenterCreatinine2019-10-15 06:41:00* Test Item Value Reference Range Interpretation Comments Creatinine (test code = 2160-0) 1.44 0.72-1.25 H [facility] CenterBUN/Creatinine Uvrrf9253-72-40 06:41:00* Test Item Value Reference Range Interpretation Comments BUN/Creatinine Ratio (test code = 3097-3) 19 6-25 [facility] CenterEstimat Glomerular Filtration Rate 2019-02-07 06:41:00* Test Item Value Reference Range Interpretation Comments Estimat Glomerular Filtration Rate (test code = 986981893) 47 >60 L Ranges were taken from the National Kidney Disease Education Program and the [facility] literature.Reference ranges:60 or greater: Nennby45-25 ( for 3 consecutive months): Chronic kidney disease 15 or less: Kidney failureVal Verde Regional Medical CenterGlucose Qimmu8121-68-53 06:41:00* Test Item Value Reference Range Interpretation Comments Glucose Level (test code = PER7990) 183 74-118 H [facility] CenterCalcium Bguyz6873-15-54 06:41:00* Test Item Value Reference Range Interpretation Comments Calcium Level (test code = 41905-6) 8.5 8.4-10.2 [facility] CenterProthrombin Ybwc2307-36-87 06:41:00* Test Item Value Reference Range Interpretation Comments Prothrombin Time (test code = 5902-2) 13.8 11.9-14.5 [facility] CenterProthromb Time International Ratio 2019-02-07 06:41:00* Test Item Value Reference Range Interpretation Comments Prothromb Time International Ratio (test code = 6301-6) 1.01 Oral Anticoagulant Therapy INR Values:1. Low Intensity Therapy 1.5 - 2.02 . Moderate Intensity Therapy 2.0 - 3.03. High Intensity Therapy(1) 2.5 - 3. 54. High Intensity Therapy(2) 3.0 - 4.05. Panic Value INR > 5.0 [facility] CenterWhite Blood Qjhvr0671-16-24 06:28:00* Test Item Value Reference Range Interpretation Comments White Blood Count (test code = 6690-2) 7.46 4.8-10.8 [facility] CenterRed Blood Ljyer1635-83-68 06:28:00* Test Item Value Reference Range Interpretation Comments Red Blood Count (test code = 789-8) 3.41 4.3-5.7 L [facility] CenterHemoglobin2019-10-15 06:28:00* Test Item Value Reference Range Interpretation Comments Hemoglobin (test code = 32163-6) 9.4 14.0-18.0 L [facility] CenterHematocrit2019-10-15 06:28:00* Test Item Value Reference Range Interpretation Comments Hematocrit (test code = 4544-3) 30.2 38.2-49.6 L [facility] CenterMean Corpuscular Vqcypw4598-90-16 06:28:00* Test Item Value Reference Range Interpretation Comments Mean Corpuscular Volume (test code = 787-2) 88.6 81-99 [facility] CenterMean Corpuscular Digrqnzant8236-93-77 06:28:00* Test Item Value Reference Range Interpretation Comments Mean Corpuscular Hemoglobin (test code = 785-6) 27.6 28-32 L [facility] CenterMean Corpuscular Hemoglobin Concent 2019-02-07 06:28:00* Test Item Value Reference Range Interpretation Comments Mean Corpuscular Hemoglobin Concent (test code = 786-4) 31.1 31-35 [facility] CenterRed Cell Distribution Yloto1043-93-11 06:28:00* Test Item Value Reference Range Interpretation Comments Red Cell Distribution Width (test code = 58025-0) 15.4 11.7 -14.4 H [facility] CenterPlatelet Iptld0588-11-89 06:28:00* Test Item Value Reference Range Interpretation Comments Platelet Count (test code = 777-3) 304 140-360 [facility] CenterNeutrophils (%) (Auto)2019-02-07 06:28:00 * Test Item Value Reference Range Interpretation Comments Neutrophils (%) (Auto) (test code = 94074-4) 64.8 38.7-80.0 [facility] CenterLymphocytes (%) (Auto)2019-02-07 06:28:00 * Test Item Value Reference Range Interpretation Comments Lymphocytes (%) (Auto) (test code = 736-9) 18.4 18.0-39.1 [facility] CenterMonocytes (%) (Auto)2019-02-07 06:28:00* Test Item Value Reference Range Interpretation Comments Monocytes (%) (Auto) (test code = 5905-5) 11.1 4.4-11.3 [facility] CenterEosinophils (%) (Auto)2019-02-07 06:28:00 * Test Item Value Reference Range Interpretation Comments Eosinophils (%) (Auto) (test code = 713-8) 4.7 0.0-6.0 [facility] CenterBasophils (%) (Auto)2019-02-07 06:28:00* Test Item Value Reference Range Interpretation Comments Basophils (%) (Auto) (test code = 706-2) 0.5 0.0-1.0 [facility] CenterIM GRANULOCYTES %2019-02-07 06:28:00* Test Item Value Reference Range Interpretation Comments IM GRANULOCYTES % (test code = IM GRANULOCYTES %) 0.5 0.0- 1.0 [facility] CenterNeutrophils # (Auto)2019-02-07 06:28:00* Test Item Value Reference Range Interpretation Comments Neutrophils # (Auto) (test code = 751-8) 4.8 2.1-6.9 [facility] CenterLymphocytes # (Auto)2019-02-07 06:28:00* Test Item Value Reference Range Interpretation Comments Lymphocytes # (Auto) (test code = 83512-3) 1.4 1.0-3.2 [facility] CenterMonocytes # (Auto)2019-02-07 06:28:00* Test Item Value Reference Range Interpretation Comments Monocytes # (Auto) (test code = 742-7) 0.8 0.2-0.8 [facility] CenterEosinophils # (Auto)2019-02-07 06:28:00* Test Item Value Reference Range Interpretation Comments Eosinophils # (Auto) (test code = 711-2) 0.4 0.0-0.4 [facility] CenterBasophils # (Auto)2019-02-07 06:28:00* Test Item Value Reference Range Interpretation Comments Basophils # (Auto) (test code = 704-7) 0.0 0.0-0.1 [facility] CenterAbsolute Immature Granulocyte (auto 2019-02-07 06:28:00* Test Item Value Reference Range Interpretation Comments Absolute Immature Granulocyte (auto (jeyson t code = Absolute Immature Granulocyte (auto) 0.04 0-0.1 [facility] CenterBedside Znblqkm7543-91-44 06:05:00* Test Item Value Reference Range Interpretation Comments Bedside Glucose (test code = 60918-0) 186 70-120 H Meter ID: [id number] [facility]Magn[facility] Level 2019-02-05 06:12:00* Test Item Value Reference Range Interpretation Comments Magnesium Level (test code = 32465-0) 1.9 1.3-2.1 [facility] CenterMagnesium Mzsrl1301-35-61 06:12:00* Test Item Value Reference Range Interpretation Comments Magnesium Level (test code = 59999-9) 1.9 1.3-2.1 [facility] CenterBljohnson memorial [facility] and [facility] Knsswak9920-65-44 09:51:00* Test Item Value Reference Range Interpretation Comments Blood Culture (test code = 44102316) NO GROWTH AFTER 5 DAYS, FINAL REPORT [facility] Klulzoe7726-44-63 09:51:00* Test Item Value Reference Range Interpretation Comments Blood Culture (test code = 09673316) NO GROWTH AFTER 5 DAYS, FINAL REPORT [facility] Mohdzeq1346-39-67 07:15:00* Test Item Value Reference Range Interpretation Comments Sputum Culture (test code = 624-7) No Result Data Provided [facility] Wpwpmpi2768-88-04 07:15:00* Test Item Value Reference Range Interpretation Comments Sputum Culture (test code = 624-7) No Result Data Provided [facility] CenterCHES SINGLE (PORTABLE)2019-02-04 04:58:00 [place] [address] Patient Name: TONEY NAVA MR #: [id number] : 1940 Age/Sex: 78/M Req #: [id number] Adm Physician: CARROLL LIMA MD Ordered by: DENIS GRANADOS MD Report #: [id number] Location: ICU Room/Bed: ICU [facility] Procedure: [id number] DX/CHEST SINGLE (PORTABLE) Exam Date: 02/04/19 Exam Time: 0430 REPORT STATUS: Signed Examination: Single AP view of the chest. COMPARISON: 02/03/2019. IN DICATION: Fever, pneumonia sepsis. DISCUSSION: Lines/tubes: Rig ht IJ central venous catheter with the tip projected on the cavoatrial junctio n, unchanged. Lungs and pleura: Redemonstration of increased density in the lower left hemithorax suggestive of pleural effusion and associated atelectas is versus consolidation, stable. Mild pulmonary venous congestion. Trace right pleural effusion. No pneumothorax. Heart and mediastinum: The cardiac s ilhouette is obscured but however, appears enlarged. Bones and soft tissu es: No acute bony abnormalities. Degenerative changes in the thoracic spine. Metallic density projected cardiac shadow. Median sternotomy wires and medias tinal clips. IMPRESSION: Stable exam. Left pleural effusion and assoc iated atelectasis versus pneumonia. Signed by: Otoniel Ayers on 02/04/2019 5:03 AM Dictated By: CELINA MCKEON MD, MD Electronicall y Signed By: CELINA MCKEON MD, MD on 02/04/19 0503 Transcribed By: ANAT on 3 COPY TO: DENIS GRANADOS MD, [facility] CHEST SINGLE (PORTABLE)2019-02-03 06:51:00 [place] [address] Patient Name: TONEY NAVA MR #: [id number] : 1940 Age/Sex: 78/M Req #: [id number] Adm Physician: CARROLL LIMA MD Ordered by: DENIS GRANADOS MD Report #: [id number] Location: ICU Room/Bed: ICU 194 Procedure: [id number] DX/CHEST SINGLE (PORTABLE) Exam Date: Exam Time: REPORT STATUS: Signed Examination: Single AP view of the chest. COMPARISON: 02/02/2019. INDICATION: Fe kali, pneumonia sepsis. DISCUSSION: Lines/tubes: Right IJ centra l venous catheter with the tip projected on the cavoatrial junction, unchanged .. Endotracheal tube has been removed. Lungs and pleura: Redemonstration of increased density in the lower left hemithorax suggestive of pleural effusion and associated atelectasis versus consolidation, stable. Mild pulmonary venous congestion. Trace right pleural effusion. No pneumothorax. Heart and me diastinum: The cardiac silhouette is mildly enlarged. Bones and soft tissu es: No acute bony abnormalities. Degenerative changes in the thoracic spine. IMPRESSION: Interval removal of endotracheal tube, otherwise no significant change. Signed by: Dr. Selene Mckeon M.D. on 02/03/2019 6:53 AM Dictated By: CELINA MCKEON MD, MD 2 Transcribed By: ANAT on 02/03/19652 COPY TO: DENIS GRANADOS MD, ABIM Phosphorus Rbxkh4925-60-67 05:45:00* Test Item Value Reference Range Interpretation Comments Phosphorus Level (test code = OYE7688) 2.9 2.3-4.7 [facility] CenterTotal Vhcwianrg8084-37-60 05:45:00* Test Item Value Reference Range Interpretation Comments Total Bilirubin (test code = 1975-2) 1.0 0.2-1.2 [facility] CenterAspartate Amino Transf (AST/SGOT) 2019-02-03 05:45:00* Test Item Value Reference Range Interpretation Comments Aspartate Amino Transf (AST/SGOT) (test code = Aspartate Amino Transf (AST/SGOT)) 100 5-34 H [facility] CenterAlanine Aminotransferase (ALT/SGPT) 2019-02-03 05:45:00* Test Item Value Reference Range Interpretation Comments Alanine Aminotransferase (ALT/SGPT) (test code = 1742-6) 72 0-55 H [facility] CenterTotal Tokwbwy2087-85-51 05:45:00* Test Item Value Reference Range Interpretation Comments Total Protein (test code = 2885-2) 6.7 6.5-8.1 [facility] CenterAlbumin2019-10-11 05:45:00* Test Item Value Reference Range Interpretation Comments Albumin (test code = 1751-7) 2.5 3.5-5.0 L [facility] CenterGlobulin2019-10-11 05:45:00* Test Item Value Reference Range Interpretation Comments Globulin (test code = 32220-1) 4.2 2.3-3.5 H [facility] CenterAlbumin/Globulin Hltqt6953-28-80 05:45:00 * Test Item Value Reference Range Interpretation Comments Albumin/Globulin Ratio (test code = 1759-0) 0.6 0.8-2.0 L [facility] CenterAlkaline Wslcbbdzvwu8645-32-10 05:45:00* Test Item Value Reference Range Interpretation Comments Alkaline Phosphatase (test code = 6768-6) 69 40-150 [facility] CenterPhosphorus Qztus7109-74-57 05:45:00* Test Item Value Reference Range Interpretation Comments Phosphorus Level (test code = TZQ4781) 2.9 2.3-4.7 [facility] CenterArterial Blood kY8860-76-89 01:18:00* Test Item Value Reference Range Interpretation Comments Arterial Blood pH (test code = 2744-1) 7.37 7.31-7.41 [facility] CenterArterial Blood Partial Pressure CO2 2019-02-03 01:18:00* Test Item Value Reference Range Interpretation Comments Arterial Blood Partial Pressure CO2 (test code = 2018-11) 58 41-51 H [facility] CenterArterial Blood Partial Pressure O2 2019-02-03 01:18:00* Test Item Value Reference Range Interpretation Comments Arterial Blood Partial Pressure O2 (test code = 2018-11) 106 80-105 H [facility] CenterArterial Blood SZF16185-21-92 01:18:00* Test Item Value Reference Range Interpretation Comments Arterial Blood HCO3 (test code = 1960-4) 34 23-28 H [facility] CenterArterial Blood Base Tqfjkw5145-95-89 01:18:00* Test Item Value Reference Range Interpretation Comments Arterial Blood Base Excess (test code = 1925-7) 9.0 -2-3 H [facility] CenterArterial Blood Oxygen Saturation 2019-02-03 01:18:00* Test Item Value Reference Range Interpretation Comments Arterial Blood Oxygen Saturation (test code = 2708-6) 98.0 95-98 [facility] CenterFiO22019-10-11 01:18:00* Test Item Value Reference Range Interpretation Comments FiO2 (test code = FiO2) 40 5L NASAL CANNULAVal Verde Regional Medical CenterArterial Blood pH 2019-02-03 01:18:00* Test Item Value Reference Range Interpretation Comments Arterial Blood pH (test code = 2744-1) 7.37 7.31-7.41 [facility] CenterArterial Blood Partial Pressure CO2 2019-02-03 01:18:00* Test Item Value Reference Range Interpretation Comments Arterial Blood Partial Pressure CO2 (test code = 2018-8) 58 41-51 H [facility] CenterArterial Blood Partial Pressure O2 2019-02-03 01:18:00* Test Item Value Reference Range Interpretation Comments Arterial Blood Partial Pressure O2 (test code = 2018-8) 106 80-105 H [facility] CenterArterial Blood POB50554-14-57 01:18:00* Test Item Value Reference Range Interpretation Comments Arterial Blood HCO3 (test code = 1960-4) 34 23-28 H [facility] CenterArterial Blood Base Alpule4060-99-00 01:18:00* Test Item Value Reference Range Interpretation Comments Arterial Blood Base Excess (test code = 1925-7) 9.0 -2-3 H [facility] CenterArterial Blood Oxygen Saturation 2019-02-03 01:18:00* Test Item Value Reference Range Interpretation Comments Arterial Blood Oxygen Saturation (test code = 2708-6) 98.0 95-98 [facility] CenterFiO22019-10-11 01:18:00* Test Item Value Reference Range Interpretation Comments FiO2 (test code = FiO2) 40 5L NASAL CANNULAVal Verde Regional Medical CenterBlood Txfkwvs5502-91-39 11:26:00* Test Item Value Reference Range Interpretation Comments Blood Culture (test code = 600-7) No Result Data Provided [facility] CenterBljohnson [facility] Qtkjjov9327-52-10 11:26:00* Test Item Value Reference Range Interpretation Comments Blood Culture (test code = 600-7) No Result Data Provided [facility] CenterCHES SINGLE (PORTABLE)2019-02-02 06:22:00 [facility] [address] [place] [address] Patient Name: TONEY NAVA MR #: [id number] : 1940 Age/Sex: 78/M Req #: [id number] Adm Physician: CARROLL LIMA MD Ordered by: DENIS GRANADOS MD Report #: [id number] Location: ICU Room/Bed: [place] [address] Procedure: [id number] DX/CHEST SINGLE (PORTABLE) Exam Date: 02/02/19 Exam Time: 0500 REPORT STATUS: Signed Examination: Single AP view of the chest. COMPARISON: 02/01/2019. IND ICATION: Fever, pneumonia sepsis. DISCUSSION: Lines/tubes: Righ t IJ central venous catheter with the tip projected on the cavoatrial junction , unchanged.. Endotracheal tube with distal tip above the reno, at the level distal clavicular junction, unchanged. Lungs and pleura: Redemonstration of increased density in the lower left hemithorax suggestive of pleural effusion and associated atelectasis versus consolidation, stable. Mild pulmonary venous congestion. Trace right pleural effusion. No pneumothorax. Heart and m ediastinum: The cardiac silhouette is mildly enlarged. Bones and soft tiss ues: No acute bony abnormalities. Degenerative changes in the thoracic spine . IMPRESSION: No significant interval change. 1. Stable exam. Left ple ural effusion and associated atelectasis versus pneumonia. 2. Stable supp orting ET tube and right IJ central venous line. Signed by: Dr. Selene Mckeon M.D. on 02/02/2019 6:23 AM Dictated By: CELINA MCKEON MD, MD 2 Transcribed By: ANAT on 02/02/19622 COPY TO: DENIS GRANADOS MD, [facility] CHEST SINGLE (PORTABLE)2019-02-01 06:28:00 [place] [address] Patient Name: TONEY NAVA MR #: [id number] : 1940 Age/Sex: 78/M Req #: [id number] Adm Physician: CARROLL LIMA MD Ordered by: DENIS GRANADOS MD Report #: [id number] Location: ICU Room/Bed: ICU [facility] Procedure: [id number] DX/CHEST SINGLE (PORTABLE) Exam Date: 02/01/19 Exam Time: 0545 REPORT STATUS: Signed Examination: Single AP view of the chest. COMPARISON: 01/31/2019. IND ICATION: Fever, pneumonia sepsis. DISCUSSION: Lines/tubes: Righ t IJ central venous catheter with the tip projected on the cavoatrial junction , unchanged.. Endotracheal tube with distal tip above the reno, at the level distal clavicular junction, unchanged. Lungs and pleura: Redemonstration of increased density in the lower left hemithorax suggestive of pleural effusion and associated atelectasis versus consolidation, stable. Mild pulmonary venous congestion. Trace right pleural effusion. No pneumothorax. Heart and m ediastinum: The cardiac silhouette is mildly enlarged. Bones and soft tiss ues: No acute bony abnormalities. Degenerative changes in the thoracic spine . IMPRESSION: 1. Stable exam. Left pleural effusion and associated ate lectasis versus pneumonia. 2. Stable supporting ET tube and right IJ cent ral venous line. Signed by: Dr. Selene Mckeon M.D. on 02/01/2019 6:3 5 AM Dictated By: CELINA MCKEON MD, MD 4 Transcribed By: ANAT on 02/01/19634 C OPY TO: DENIS GRANADOS MD, [facility] Urine Wyeuzry0470-89-00 06:47:00* Test Item Value Reference Range Interpretation Comments Urine Culture (test code = 630-4) No Result Data Provided [facility] CenterUrine Apraoxa1773-59-68 06:47:00* Test Item Value Reference Range Interpretation Comments Urine Culture (test code = 630-4) No Result Data Provided [facility] CenterCHEST SINGLE (PORTABLE)2019-01-31 06:34:00 [place] [address] Patient Name: TONEY NAVA MR #: [id number] : 1940 Age/Sex: 78/M Req #: [id number] Adm Physician: CARROLL LIMA MD Ordered by: DENIS GRANADOS MD Report #: [id number] Location: ICU Room/Bed: ICU [facility] Procedure: [id number] DX/CHEST SINGLE (PORTABLE) Exam Date: 01/31/19 Exam Time: 0535 REPORT STATUS: Signed Examination: Single AP view of the chest. COMPARISON: 01/30/2019. IND ICATION: Fever, pneumonia sepsis. DISCUSSION: Patient motion limits ev aluation. Lines/tubes: Right IJ central venous catheter with the tip proje cted on the cavoatrial junction, unchanged.. Endotracheal tube with distal tip above the reno, at the level distal clavicular junctions. Lungs and pl eura: Redemonstration of increased density in the lower left hemithorax sugges tive of pleural effusion and associated atelectasis versus consolidation. Bila teral pulmonary venous congestion. Small right pleural effusion. No pneumothor ax. Heart and mediastinum: The cardiac silhouette is mildly enlarged. Bones and soft tissues: No acute bony abnormalities. Degenerative changes in the thoracic spine. IMPRESSION: No significant interval change. Bila teral pulmonary venous congestion. Left pleural effusion and associated ate lectasis versus pneumonia in the proper clinical setting. Signed by: Dr. Selene Mckeon M.D. on 01/31/2019 6:39 AM Dictated By: CELINA PENALOZA MD, MD 8 Trans cribed By: ANAT on 01/31/19638 COPY TO: DENIS GRANADOS MD, [facility] CHEST SINGLE (PORTABLE)2019-01-30 18:59:00 [place] [address] Patient Name: TONEY NAVA MR #: [id number] : 1940 Age/Sex: 78/M Req #: [id number] Adm Physician: CARROLL LIMA MD Ordered by: REGGIE NOLEN MD Report #: [id number] Location: ICU Room/Bed: ICU [facility] Procedure: [id number] DX/C HEST SINGLE (PORTABLE) Exam Date: 01/30/19 Exam Time : 1850 REPORT STATUS: Signed Exa mination: Single AP view of the chest. COMPARISON: None. INDICATION: C entral line placement DISCUSSION: Patient motion limits evaluation. Lines/tubes: Right IJ central venous catheter with the tip approximately o verlying the cavoatrial junction. Sternotomy wires. Endotracheal tube withdraw n in satisfactory position well above the reno. Lungs: Left lower lung o pacity with possible effusion. Central venous congestion. Heart and media stinum: The heart and the mediastinum are unremarkable. Bones and soft tis sues: No acute bony abnormalities. IMPRESSION: Limited due to mo tion. Central venous congestion and stable left lower lung opacity/effusio n. Right IJ catheter with tip overlying the cavoatrial junction Signed by: Dr. Gilberto Chapa M.D. on 01/30/2019 7:02 PM Dictated By: GILBERTO CHAPA MD 01 Naylor scribed By: ANAT on 01/30/191901 COPY TO: REGGIE NOLEN MD IR [id number] 17:39:00 [place] [address] Patient Name: TONEY NAVA MR #: [id number] : 1940 Age/Sex: 78/M Req #: [id number] Adm Physician: CARROLL LIMA MD Ordered by: FRANKI GOLDEN [employer] Report #: [id number] Location: ICU Room/Bed: ICU 1941 Procedure: [id number] DX/IR CONSULT Exam Date: Exam Time: REPORT STATUS: Signed PROCEDURE: Non-tunneled central venous catheter placement Procedural Personnel Attending physicia n(s): Reggie Nolen MD Fellow physician(s): None Resident physician(s): None Advanced practice provider(s): None Pre-procedure diagnosis: Sepsis Post- procedure diagnosis: Same Indication: Administration of intravenous medicatio ns Additional clinical history: None Complications: No immediate complica tions. IMPRESSION: Insertion of right-sided non-tunneled triple-lumen temporary central venous catheter. Plan: Portable chest radiograph to confirm location prior to use. PROCEDURE SUMMARY: - Venous access with ultrasound guid ance - Non-tunneled central venous catheter insertion - Additional procedur e(s): None PROCEDURE DETAILS: Pre-procedure Consent: Informed consen t for the procedure including risks, benefits and alternatives was obtained an d time-out was performed prior to the procedure. Preparation (MIPS): The site was prepared and draped using all elements of maximal sterile barrier techniqu e including sterile gloves, sterile gown, cap, mask, large sterile sheet, ster ile ultrasound probe cover, hand hygiene and cutaneous antisepsis with 2% chlo rhexidine. Medical reason for site preparation exception (MIPS): Not applicab le Anesthesia/sedation Level of anesthesia/sedation: No sedation Acc ess Local anesthesia was administered. The vessel was sonographically evaluate d and determined to be patent. Real time ultrasound was used to visualize need le entry into the vessel and a permanent image was stored. Vein accessed: In ternal jugular vein Access technique: 19 gauge access needle Catheter sarai cement The access site was dilated and the catheter was placed into the vein o kali a wire. A sterile dressing was applied. Catheter placed: Bard triple mina men CVC Catheter size (Palestinian): 7 Catheter length (cm): 16 Catheter flush: Normal saline Catheter securement technique: Non-absorbable suture Contr ast Contrast agent: None Radiation Dose None, ultrasound guidance only. Chest radiograph to follow. Additional Details Additional description of procedure: None Equipment details: None Specimens removed: None Estimated blood loss (mL): Less than 10 Standardized report: SIR_CVA_NonTunneledCathete r_v3 Attestation Signer name: Reggie Nolen MD I attest that I was presen t for the entire procedure. I reviewed the stored images and agree with the re port as written. Signed by: Reggie Nolen MD on 01/30/2019 5:40 PM Dict ated By: REGGIE NOLEN MD 39 Transcribed By: ANAT on 01/30/191739 COPY TO: FRANKI GOLDEN NP NON-TUNNELLED CVC CATH [id number] 17:39:00 [place] [address] Patient Name: TONEY NAVA MR #: [id number] : 1940 Age/Sex: 78/M Req #: [id number] Adm Physician: CARROLL LIMA MD Ordered by: FRANKI GOLDEN [employer]ORER [employer] Report #: [id number] Location: ICU Room/Bed: ICU [facility] Procedure: [id number] IR/NON-TUNNELLED CVC CATH PLACMNT Exam Date: 01/30/19 Exam Time: 1615 REPORT STATUS: Si gned PROCEDURE: Non-tunneled central venous catheter placement Procedura l Personnel Attending physician(s): Reggie Nolen MD Fellow physician(s): None Resident physician(s): None Advanced practice provider(s): None Pre-pr ocedure diagnosis: Sepsis Post-procedure diagnosis: Same Indication: Adminis tration of intravenous medications Additional clinical history: None Comp lications: No immediate complications. IMPRESSION: Insertion of right- sided non-tunneled triple-lumen temporary central venous catheter. Plan: Portable chest radiograph to confirm location prior to use. PROCEDURE SUMMARY: - Ve nous access with ultrasound guidance - Non-tunneled central venous catheter in sertion - Additional procedure(s): None PROCEDURE DETAILS: Pre-proc edure Consent: Informed consent for the procedure including risks, benefits an d alternatives was obtained and time-out was performed prior to the procedure. Preparation (MIPS): The site was prepared and draped using all elements of maximal sterile barrier technique including sterile gloves, sterile gown, cap, mask, large sterile sheet, sterile ultrasound probe cover, hand hygiene and c utaneous antisepsis with 2% chlorhexidine. Medical reason for site preparatio n exception (MIPS): Not applicable Anesthesia/sedation Level of anesthesi a/sedation: No sedation Access Local anesthesia was administered. The ves olga lidia was sonographically evaluated and determined to be patent. Real time ultra sound was used to visualize needle entry into the vessel and a permanent image was stored. Vein accessed: Internal jugular vein Access technique: 19 gauge access needle Catheter placement The access site was dilated and the cat heter was placed into the vein over a wire. A sterile dressing was applied. Catheter placed: Bard triple lumen CVC Catheter size (Palestinian): 7 Catheter l ength (cm): 16 Catheter flush: Normal saline Catheter securement technique: Non-absorbable suture Contrast Contrast agent: None Radiation Dose None, ultrasound guidance only. Chest radiograph to follow. Additional Det ails Additional description of procedure: None Equipment details: None Spe cimens removed: None Estimated blood loss (mL): Less than 10 Standardized re port: SIR_CVA_NonTunneledCatheter_v3 Attestation Signer name: Reggie Nolen MD I attest that I was present for the entire procedure. I reviewed the stored images and agree with the report as written. Signed by: Reggie Nolen MD on 01/30/2019 5:40 PM Dictated By: REGGIE NOLEN MD 39 Transcribed By: ANAT on 01/30/191739 COPY TO: FRANKI GOLDEN NP US GUIDANCE FOR VASCULAR [id number] 17:39:00 [facility] [address] [place] [address] Patient Name: TONEY NAVA MR #: [id number] : 1940 Age/Sex: 78/M Req #: [id number] Adm Physician: CARROLL LIMA MD Ordered by: FRANKI GOLDEN NP Report #: [id number] Location: ICU Room/Bed: ICU [facility] Procedure: [id number] US/US GUIDANCE FOR VASCULAR ACCES Exam Date: 01/30/19 Exam Time: 1615 REPORT STATUS: Si gned PROCEDURE: Non-tunneled central venous catheter placement Procedura l Personnel Attending physician(s): Reggie Nolen MD Fellow physician(s): None Resident physician(s): None Advanced practice provider(s): None Pre-pr ocedure diagnosis: Sepsis Post-procedure diagnosis: Same Indication: Adminis tration of intravenous medications Additional clinical history: None Comp lications: No immediate complications. IMPRESSION: Insertion of right- sided non-tunneled triple-lumen temporary central venous catheter. Plan: Portable chest radiograph to confirm location prior to use. PROCEDURE SUMMARY: - Ve nous access with ultrasound guidance - Non-tunneled central venous catheter in sertion - Additional procedure(s): None PROCEDURE DETAILS: Pre-proc edure Consent: Informed consent for the procedure including risks, benefits an d alternatives was obtained and time-out was performed prior to the procedure. Preparation (MIPS): The site was prepared and draped using all elements of maximal sterile barrier technique including sterile gloves, sterile gown, cap, mask, large sterile sheet, sterile ultrasound probe cover, hand hygiene and c utaneous antisepsis with 2% chlorhexidine. Medical reason for site preparatio n exception (MIPS): Not applicable Anesthesia/sedation Level of anesthesi a/sedation: No sedation Access Local anesthesia was administered. The ves olga lidia was sonographically evaluated and determined to be patent. Real time ultra sound was used to visualize needle entry into the vessel and a permanent image was stored. Vein accessed: Internal jugular vein Access technique: 19 gauge access needle Catheter placement The access site was dilated and the cat heter was placed into the vein over a wire. A sterile dressing was applied. Catheter placed: Bard triple lumen CVC Catheter size (Palestinian): 7 Catheter l ength (cm): 16 Catheter flush: Normal saline Catheter securement technique: Non-absorbable suture Contrast Contrast agent: None Radiation Dose None, ultrasound guidance only. Chest radiograph to follow. Additional Det ails Additional description of procedure: None Equipment details: None Spe cimens removed: None Estimated blood loss (mL): Less than 10 Standardized re port: SIR_CVA_NonTunneledCatheter_v3 Attestation Signer name: Reggie Nolen MD I attest that I was present for the entire procedure. I reviewed the stored images and agree with the report as written. Signed by: Reggie Nolen MD on 01/30/2019 5:40 PM Dictated By: REGGIE NOLEN MD 39 Transcribed By: ANAT on 01/30/191739 COPY TO: FRANKI GOLDEN NP Differential Total Cells Bbwxpan0150-72-24 11:01:00* Test Item Value Reference Range Interpretation Comments Differential Total Cells Counted (test code = Differen tial Total Cells Counted) 100 [facility] % (Manual)2019-01-30 11:01:00 * Test Item Value Reference Range Interpretation Comments Neutrophils % (Manual) (test code = 90756-0) 87 40-74 H [facility] CenterLymphocytes % (Manual)2019-01-30 11:01:00 * Test Item Value Reference Range Interpretation Comments Lymphocytes % (Manual) (test code = 737-7) 9 19-48 L [facility] % (Manual)2019-01-30 11:01:00* Test Item Value Reference Range Interpretation Comments Monocytes % (Manual) (test code = 744-3) 4 3.4-9.0 [facility] CenterPlatelet Nkdovudo8659-81-93 11:01:00* Test Item Value Reference Range Interpretation Comments Platelet Estimate (test code = 12587-8) SLIGHTLY DECREASED [facility] CenterPlatelet Morphology Fuxzxit2623-06-10 11:01:00* Test Item Value Reference Range Interpretation Comments Platelet Morphology Comment (test code = 93372-7) NORMAL [facility] CenterRed Cell Morphology Fkbhftb6363-31-12 11:01:00* Test Item Value Reference Range Interpretation Comments Red Cell Morphology Comment (test code = 6742-1) NORMAL [facility] CenterDifferential Total Cells Counted 2019-01-30 11:01:00* Test Item Value Reference Range Interpretation Comments Differential Total Cells Counted (test code = Braeden tial Total Cells Counted) 100 [facility] CenterNeutrophils % (Manual)2019-01-30 11:01:00 * Test Item Value Reference Range Interpretation Comments Neutrophils % (Manual) (test code = 11582-8) 87 40-74 H [facility] CenterLymphocytes % (Manual)2019-01-30 11:01:00 * Test Item Value Reference Range Interpretation Comments Lymphocytes % (Manual) (test code = 737-7) 9 19-48 L [facility] CenterMonocytes % (Manual)2019-01-30 11:01:00* Test Item Value Reference Range Interpretation Comments Monocytes % (Manual) (test code = 744-3) 4 3.4-9.0 [facility] CenterPlate[facility] Qwszqtnz2278-19-74 11:01:00* Test Item Value Reference Range Interpretation Comments Platelet Estimate (test code = 60069-1) SLIGHTLY DECREASED [facility] CenterPlatelet Morphology Mzfjrxr2066-97-28 11:01:00* Test Item Value Reference Range Interpretation Comments Platelet Morphology Comment (test code = 63234-4) NORMAL [facility] CenterRed Cell Morphology Uilbrct8172-36-15 11:01:00* Test Item Value Reference Range Interpretation Comments Red Cell Morphology Comment (test code = 6742-1) NORMAL [facility] CenterB-Type Natriuretic Wjlxgov7511-88-02 10:30:00* Test Item Value Reference Range Interpretation Comments B-Type Natriuretic Peptide (test code = 67921-3) 192.1 0-100 H [facility] CenterB-Type Natriuretic Vdizqfl6485-06-59 10:30:00* Test Item Value Reference Range Interpretation Comments B-Type Natriuretic Peptide (test code = 92126-9) 192.1 0-100 H [facility] CenterLactic Acid Djxfe1959-11-85 10:22:00* Test Item Value Reference Range Interpretation Comments Lactic Acid Level (test code = Lactic Acid Level) 14.4 4.5- 19.8 [facility] CenterLactic Acid Gopuj3687-60-12 10:22:00* Test Item Value Reference Range Interpretation Comments Lactic Acid Level (test code = Lactic Acid Level) 14.4 4.5- 19.8 [facility] CenterActivated Partial Thromboplast Time 2019-01-30 10:21:00* Test Item Value Reference Range Interpretation Comments Activated Partial Thromboplast Time (test code = 18483-6) 53.0 23.8-35.5 H [facility] CenterActivated Partial Thromboplast Time 2019-01-30 10:21:00* Test Item Value Reference Range Interpretation Comments Activated Partial Thromboplast Time (test code = 81420-0) 53.0 23.8-35.5 H [facility] CenterCHEST SINGLE (PORTABLE)2019-01-30 10:18:00 [place] [address] Patient Name: TONEY NAVA MR #: [id number] : 1940 Age/Sex: 78/M Req #: [id number] Adm Physician: CARROLL LIMA MD Ordered by: RICHARD PONCE MD Report #: [id number] Location: ICU Room/Bed: [place] [address] Procedure: [id number] DX/CHEST SINGLE (PORTABLE) Exam Date: 01/30/19 Exam Time: 930 REPORT STATUS: Signed EXAMINATION: CHEST SINGLE (PORTABLE) INDICATION: Endotracheal tube p lacement COMPARISON: Chest radiograph of earlier the same day FIN DINGS: LINES/TUBES:The endotracheal tube appears to terminate at the level of the reno. EKG leads overlie the chest. LUNGS:Unchanged pulmonary jose maria ma and left basilar opacity silhouetting the left hemidiaphragm. PLEURA:N o pleural effusion or pneumothorax. MEDIASTINUM:Unchanged cardiomegaly. BONES/SOFT TISSUES:No acute osseous injury. Sternotomy wires unchanged. A BDOMEN:No free air under the diaphragm. IMPRESSION: Interval intubati on with endotracheal tube appearing to terminate at the level of the reno. R ecommend withdrawal of endotracheal tube by approximately 3 cm. Unchanged p ulmonary edema, cardiomegaly, and left basilar opacity. The above findings were discussed with ICU care team on 01/30/2019 10:18 AM, who responded indicat ing that the communication was understood. Signed by: Reggie Nolen MD on 01/30/2019 10:21 AM Dictated By: REGGIE NOLEN MD 1021 Transcribed By: ANAT on 01/30/19 1021 COPY TO: RICHARD PONCE MD CHEST SINGLE (PORTABLE)2019-01-30 09:02:00 [facility] [address] [place] [address] Patient Name: TONEY NAVA MR #: [id number] : 1940 Age/Sex: 78/M Req #: [id number] Adm Physician: CARROLL LIMA MD Ordered by: DENIS GRANADOS MD Report #: [id number] Location: ICU Room/Bed: ICU [facility] Procedure: [id number] DX/CHEST SINGLE (PORTABLE) Exam Date: 01/30/19 Exam Time: 0510 REPORT STATUS: Signed EXAMINATION: CHEST SINGLE (PORTABLE) INDICATION: Shortness of breath COMPARISON: Multiple prior chest radiographs, most recently of 01/29/2019 FINDINGS: LINES/TUBES:EKG leads overlie the chest. LUNGS:There is perihilar fullness and indistinctness of the pulmonary vasculature, slightly increased from 01/29/2019. There is left basilar opacity silhouetting the left juan diaphragm. PLEURA:Possible left pleural effusion. No pneumothorax. MEDIASTINUM:Cardiomediastinal silhouette is stably enlarged. BONES/SOFT TISSUES:No acute osseous injury. ABDOMEN:No free air under the diaphragm. IMPRESSION: Mild interval increase in pulmonary edema. Unchanged ca rdiomegaly. Left basilar patchy opacity may represent subsegmental atelecta sis however superimposed aspiration or pneumonia could also have this appearan ce. Signed by: Reggie Nolen MD on 01/30/2019 9:04 AM Dictated By: RACHELE NOLEN MD 3 Transcribed By: ANAT on 01/30/19903 COPY TO: DENIS GRANADOS MD, [facility] Creatine Kinase [id number] 06:22:00* Test Item Value Reference Range Interpretation Comments Creatine Kinase MB (test code = 66480-9) 8.40 0-5.0 H [facility] CenterCreatine Kinase IN2480-14-76 06:22:00* Test Item Value Reference Range Interpretation Comments Creatine Kinase MB (test code = 69293-8) 8.40 0-5.0 H [facility] CenterInfluenza Virus Types A,B Antigen 2019-01-29 18:16:00* Test Item Value Reference Range Interpretation Comments Influenza Virus Types A,B Antigen (test code = 57760-4) NEGATIVE NEGATIVE [facility] CenterInfluenza Virus Types A,B Antigen 2019-01-29 18:16:00* Test Item Value Reference Range Interpretation Comments Influenza Virus Types A,B Antigen (test code = 30244-3) NEGATIVE NEGATIVE [facility] [id number] 17:34:00* Test Item Value Reference Range Interpretation Comments Troponin I (test code = PZM8817) 0.902 0-0.300 H [facility] O8153-28-57 17:34:00* Test Item Value Reference Range Interpretation Comments Troponin I (test code = ONZ7366) 0.902 0-0.300 H [facility] CenterCHEST SINGLE (PORTABLE)2019-01-29 06:23:00 [place] [address] Patient Name: TONEY NAVA MR #: [id number] : 1940 Age/Sex: 78/M Req #: [id number] Adm Physician: CARROLL LIMA MD Ordered by: DENIS GRANADOS MD Report #: [id number] Location: [facility] Room/Bed: [facility] Procedure: [id number] DX/CHEST SINGLE (PORTABLE) Exam Date: 01/29/19 Exam Time: 0550 REPORT STATUS: Signed EXAMINATION: CHEST SINGLE (PORTABLE) INDICATION: Pneumonia CO MPARISON: Chest radiograph 01/28/2019, chest CT 04/27/2018, chest radiograph 04/26 FINDINGS: AP view TUBES and LINES: None. LUNGS/PL EURA: Right lung well inflated. Chronic left hemidiaphragm eventration and haz y opacity in the left lower lung. Prominent central pulmonary vasculature. HEART AND MEDIASTINUM: Cardiac size is mildly enlarged. Aortic arch calcifi cations. BONES AND SOFT TISSUES: Sternotomy wires, the superior sternotomy wire is fractured.. Soft tissues are unremarkable. UPPER ABDOMEN: No fr ee air under the diaphragm. IMPRESSION: Chronic left hemidiaphragm e ventration and hazy opacity in the left lower lung which is likely atelectasis , unchanged compared to 04/27/[address] Underlying pneumonia is possible. Cardiomegaly and pulmonary vascular congestion. Signed by: Alexx irizarry DO on 01/29/2019 6:25 AM Dictated By: ALEXX Coradoa josselin Signed By: ALEXX CLARK DO on 01/29/19624 Transcribed By: ANAT on 01/29/19624 COPY TO: DENIS GRANADOS MD, [facility] Urine WBC 2019-01-28 05:38:00* Test Item Value Reference Range Interpretation Comments Urine WBC (test code = 5821-4) 6-10 0-5 H [facility] CenterU[facility] [id number] 05:38:00* Test Item Value Reference Range Interpretation Comments Urine RBC (test code = 07226-6) 6-10 0-5 H [facility] CenterU[facility] Fwtspiax9945-68-68 05:38:00* Test Item Value Reference Range Interpretation Comments Urine Bacteria (test code = 11987-3) MODERATE NONE H [facility] CenterU[facility] Epithelial Ytafh5033-53-95 05:38:00 * Test Item Value Reference Range Interpretation Comments Urine Epithelial Cells (test code = 87211-3) FEW NONE [facility] EQN3052-87-84 05:38:00* Test Item Value Reference Range Interpretation Comments Urine WBC (test code = 5821-4) 6-10 0-5 H [facility] Center[facility] AHV5224-88-64 05:38:00* Test Item Value Reference Range Interpretation Comments Urine RBC (test code = 96489-8) 6-10 0-5 H [facility] Center[facility] Olmfijrb8915-72-41 05:38:00* Test Item Value Reference Range Interpretation Comments Urine Bacteria (test code = 99391-3) MODERATE NONE H [facility] CenterU[facility] Epithelial Chrjo3549-55-39 05:38:00 * Test Item Value Reference Range Interpretation Comments Urine Epithelial Cells (test code = 35612-8) FEW NONE [facility] CenterU[facility] Uwojg1983-67-56 05:22:00* Test Item Value Reference Range Interpretation Comments Urine Color (test code = 5778-6) YELLOW YELLOW [facility] Ckwfngq7118-98-15 05:22:00* Test Item Value Reference Range Interpretation Comments Urine Clarity (test code = 41410-4) CLEAR CLEAR [facility] CenterU[facility] Specific Nqqugba1761-70-99 05:22:00 * Test Item Value Reference Range Interpretation Comments Urine Specific [place] (test code = 5811-5) 1.015 1.010-1.02 5 [facility] yL7652-43-25 05:22:00* Test Item Value Reference Range Interpretation Comments Urine pH (test code = 15359-3) 6 5-7 [facility] Leukocyte Xltpfyyt4527-61-90 05:22:00* Test Item Value Reference Range Interpretation Comments Urine Leukocyte Esterase (test code = 08160-8) NEGATIVE NEGATIV E [facility] Mbjxlsz1114-97-41 05:22:00* Test Item Value Reference Range Interpretation Comments Urine Nitrite (test code = 53165-7) NEGATIVE NEGATIVE [facility] Qhuhzno7622-11-28 05:22:00* Test Item Value Reference Range Interpretation Comments Urine Protein (test code = 91475-5) 2+ NEGATIVE [facility] Glucose (UA)2019-01-28 05:22:00* Test Item Value Reference Range Interpretation Comments Urine Glucose (UA) (test code = 54715-4) 3+ NEGATIVE [facility] Dxajzuh6332-72-42 05:22:00* Test Item Value Reference Range Interpretation Comments Urine Ketones (test code = 44591-7) NEGATIVE NEGATIVE [facility] Udxmmjrjgjqd4013-02-96 05:22:00* Test Item Value Reference Range Interpretation Comments Urine Urobilinogen (test code = 65700-1) 0.2 0.2-1 [facility] Uqqxgjegz4000-28-96 05:22:00* Test Item Value Reference Range Interpretation Comments Urine Bilirubin (test code = 1977-8) NEGATIVE NEGATIVE [facility] Mdsmj2301-91-19 05:22:00* Test Item Value Reference Range Interpretation Comments Urine Blood (test code = 49873-4) 1+ NEGATIVE [facility] Qdfch8226-64-46 05:22:00* Test Item Value Reference Range Interpretation Comments Urine Color (test code = 5778-6) YELLOW YELLOW [facility] Tkpnpsw3864-48-30 05:22:00* Test Item Value Reference Range Interpretation Comments Urine Clarity (test code = 15968-8) CLEAR CLEAR [facility] Specific Rjrpjac0773-78-66 05:22:00 * Test Item Value Reference Range Interpretation Comments Urine Specific [place] (test code = 5811-5) 1.015 1.010-1.02 5 [facility] oZ8988-46-86 05:22:00* Test Item Value Reference Range Interpretation Comments Urine pH (test code = 43219-4) 6 5-7 [facility] Leukocyte Yduuqihy3211-66-65 05:22:00* Test Item Value Reference Range Interpretation Comments Urine Leukocyte Esterase (test code = 01567-0) NEGATIVE NEGATIV E [facility] Bwyuegk9263-30-81 05:22:00* Test Item Value Reference Range Interpretation Comments Urine Nitrite (test code = 67162-4) NEGATIVE NEGATIVE [facility] Cbxvrnp2629-28-46 05:22:00* Test Item Value Reference Range Interpretation Comments Urine Protein (test code = 18861-3) 2+ NEGATIVE H [facility] Glucose (UA)2019-01-28 05:22:00* Test Item Value Reference Range Interpretation Comments Urine Glucose (UA) (test code = 34928-2) 3+ NEGATIVE [facility] Mqvtmyu5800-46-71 05:22:00* Test Item Value Reference Range Interpretation Comments Urine Ketones (test code = 55040-4) NEGATIVE NEGATIVE [facility] Cbxxlagphgui0420-60-88 05:22:00* Test Item Value Reference Range Interpretation Comments Urine Urobilinogen (test code = 44560-9) 0.2 0.2-1 [facility] Yqqitvher9546-27-81 05:22:00* Test Item Value Reference Range Interpretation Comments Urine Bilirubin (test code = 1977-8) NEGATIVE NEGATIVE [facility] Qnzdy7272-64-04 05:22:00* Test Item Value Reference Range Interpretation Comments Urine Blood (test code = 03040-8) 1+ NEGATIVE [facility] ([facility])2019-01-28 04:12:00 [place] [address] Patient Name: TONEY NAVA MR #: [id number] : 1940 Age/Sex: 78/M Req #: [id number] Adm Physician: Ordered by: TOM HERRERA MD Report #: [id number] Location: ER Room/Bed: Procedure: [id number] DX/CHEST SINGLE (PORTABLE) Exam Date: Exam Richard e: REPORT STATUS: Signed EXAMIN ATION: CHEST SINGLE (PORTABLE) INDICATION: Fever COMPARISON: Chest radiograph 06/06/2018; chest CT 04/27/2018 FINDINGS: AP view TUBES and LINES: None. LUNGS/PLEURA: Right lung well inflated. Chronic left hemidiaphragm eventration and hazy opacity in the left lower lung. Prom inent central pulmonary vasculature. HEART AND MEDIASTINUM: Cardiac size is mildly enlarged. Aortic arch calcifications. BONES AND SOFT TISSUES: Sternotomy wires, the superior sternotomy wire is fractured.. Soft tissues a re unremarkable. UPPER ABDOMEN: No free air under the diaphragm. IMPR ESSION: Chronic left hemidiaphragm eventration and hazy opacity in the lef t lower lung which is likely atelectasis, although underlying pneumonia is pos sible. Cardiomegaly and pulmonary vascular congestion. Signed by: Alexx Clark DO on 01/28/2019 4:17 AM Dictated By: ALEXX CLARK DO Electr onically Signed By: ALEXX CLARK DO on 01/28/19416 Transcribed By: JARED Benitez on 01/28/19416 COPY TO: TOM HERRERA MD Blood Nrjoftq9898-69-61 09:45:00* Test Item Value Reference Range Interpretation Comments Blood Culture (test code = 44257071) NO GROWTH AFTER 48 HOURS [facility] CenterBedside Ymqnmwa1188-40-34 08:12:00* Test Item Value Reference Range Interpretation Comments Bedside Glucose (test code = 02600-9) 208 70-120 H Meter ID: [id number] [facility] 2018-[facility]-17 08:01:00* Test Item Value Reference Range Interpretation Comments Blood Culture (test code = 600-7) Organism: STAPHYLOCOCCUS SP COAG NEG [facility] CenterWhite Blood Slotg1045-12-25 06:35:00* Test Item Value Reference Range Interpretation Comments White Blood Count (test code = 6690-2) 10.45 4.8-10.8 [facility] CenterRed Blood Guika0689-53-50 06:35:00* Test Item Value Reference Range Interpretation Comments Red Blood Count (test code = 789-8) 4.17 4.3-5.7 L [facility] CenterHemoglobin2019-08-23 06:35:00* Test Item Value Reference Range Interpretation Comments Hemoglobin (test code = 48966-8) 11.5 14.0-18.0 L [facility] CenterHematocrit2019-08-23 06:35:00* Test Item Value Reference Range Interpretation Comments Hematocrit (test code = 4544-3) 36.7 38.2-49.6 L [facility] CenterMean Corpuscular Fobqmh0852-31-90 06:35:00* Test Item Value Reference Range Interpretation Comments Mean Corpuscular Volume (test code = 787-2) 88.0 81-99 [facility] CenterMean Corpuscular Jmjojewjhs4471-35-19 06:35:00* Test Item Value Reference Range Interpretation Comments Mean Corpuscular Hemoglobin (test code = 785-6) 27.6 28-32 L [facility] CenterMean Corpuscular Hemoglobin Concent 2018-12-16 06:35:00* Test Item Value Reference Range Interpretation Comments Mean Corpuscular Hemoglobin Concent (test code = 786-4) 31.3 31-35 [facility] CenterRed Cell Distribution Wzhgm5145-83-08 06:35:00* Test Item Value Reference Range Interpretation Comments Red Cell Distribution Width (test code = 15351-5) 14.9 11.7 -14.4 H [facility] CenterPlatelet Bsneb8718-52-35 06:35:00* Test Item Value Reference Range Interpretation Comments Platelet Count (test code = 777-3) 132 140-360 L [facility] CenterNeutrophils (%) (Auto)2018-12-16 06:35:00 * Test Item Value Reference Range Interpretation Comments Neutrophils (%) (Auto) (test code = 57398-8) 71.2 38.7-80.0 [facility] CenterLymphocytes (%) (Auto)2018-12-16 06:35:00 * Test Item Value Reference Range Interpretation Comments Lymphocytes (%) (Auto) (test code = 736-9) 14.5 18.0-39.1 L [facility] CenterMonocytes (%) (Auto)2018-12-16 06:35:00* Test Item Value Reference Range Interpretation Comments Monocytes (%) (Auto) (test code = 5905-5) 9.0 4.4-11.3 [facility] CenterEosinophils (%) (Auto)2018-12-16 06:35:00 * Test Item Value Reference Range Interpretation Comments Eosinophils (%) (Auto) (test code = 713-8) 4.6 0.0-6.0 [facility] CenterBasophils (%) (Auto)2018-12-16 06:35:00* Test Item Value Reference Range Interpretation Comments Basophils (%) (Auto) (test code = 706-2) 0.3 0.0-1.0 [facility] CenterIM GRANULOCYTES %2018-12-16 06:35:00* Test Item Value Reference Range Interpretation Comments IM GRANULOCYTES % (test code = IM GRANULOCYTES %) 0.4 0.0- 1.0 [facility] CenterNeutrophils # (Auto)2018-12-16 06:35:00* Test Item Value Reference Range Interpretation Comments Neutrophils # (Auto) (test code = 751-8) 7.4 2.1-6.9 H [facility] CenterLymphocytes # (Auto)2018-12-16 06:35:00* Test Item Value Reference Range Interpretation Comments Lymphocytes # (Auto) (test code = 43576-9) 1.5 1.0-3.2 [facility] CenterMonocytes # (Auto)2018-12-16 06:35:00* Test Item Value Reference Range Interpretation Comments Monocytes # (Auto) (test code = 742-7) 0.9 0.2-0.8 H [facility] CenterEosinophils # (Auto)2018-12-16 06:35:00* Test Item Value Reference Range Interpretation Comments Eosinophils # (Auto) (test code = 711-2) 0.5 0.0-0.4 H [facility] CenterBasophils # (Auto)2018-12-16 06:35:00* Test Item Value Reference Range Interpretation Comments Basophils # (Auto) (test code = 704-7) 0.0 0.0-0.1 [facility] CenterAbsolute Immature Granulocyte (auto 2018-12-16 06:35:00* Test Item Value Reference Range Interpretation Comments Absolute Immature Granulocyte (auto (jeyson t code = Absolute Immature Granulocyte (auto) 0.04 0-0.1 [facility] Fallsodium Faaqd4954-42-52 05:50:00* Test Item Value Reference Range Interpretation Comments Sodium Level (test code = 2951-2) 138 136-145 [facility] CenterPotassium Mprye8550-30-22 05:50:00* Test Item Value Reference Range Interpretation Comments Potassium Level (test code = 2823-3) 3.6 3.5-5.1 [facility] CenterChloride Ocpqq3334-84-67 05:50:00* Test Item Value Reference Range Interpretation Comments Chloride Level (test code = 2075-0) 95 98-107 L [facility] CenterCarbon Dioxide Ohrws5667-28-94 05:50:00* Test Item Value Reference Range Interpretation Comments Carbon Dioxide Level (test code = 2028-9) 31 22-29 H [facility] CenterAnion Bak3203-25-53 05:50:00* Test Item Value Reference Range Interpretation Comments Anion Gap (test code = 28655-8) 15.6 8-16 [facility] CenterBlood Urea Hdetvntg0901-79-74 05:50:00* Test Item Value Reference Range Interpretation Comments Blood Urea Nitrogen (test code = 3094-0) 31 7-26 H [facility] CenterCreatinine2019-08-23 05:50:00* Test Item Value Reference Range Interpretation Comments Creatinine (test code = 2160-0) 1.69 0.72-1.25 H [facility] CenterBUN/Creatinine Avtup1697-10-85 05:50:00* Test Item Value Reference Range Interpretation Comments BUN/Creatinine Ratio (test code = 3097-3) 18 6-25 [facility] CenterEstimat Glomerular Filtration Rate 2018-12-16 05:50:00* Test Item Value Reference Range Interpretation Comments Estimat Glomerular Filtration Rate (test code = 135562768) 39 >60 L Ranges were taken from the National Kidney Disease Education Program and the [facility] Kidney Foundation literature.Reference ranges:60 or greater: Zmodog27-61 ( for 3 consecutive months): Chronic kidney disease 15 or less: Kidney failureVal Verde Regional Medical CenterGlucose Wyddt5930-20-22 05:50:00* Test Item Value Reference Range Interpretation Comments Glucose Level (test code = YKK8275) 174 74-118 H [facility] CenterCalcium Roekt4534-31-12 05:50:00* Test Item Value Reference Range Interpretation Comments Calcium Level (test code = 37755-8) 8.4 8.4-10.2 [facility] CenterProthrombin Ovaz9641-81-46 05:48:00* Test Item Value Reference Range Interpretation Comments Prothrombin Time (test code = 5902-2) 20.9 11.9-14.5 H [facility] CenterProthromb Time International Ratio 2018-12-16 05:48:00* Test Item Value Reference Range Interpretation Comments Prothromb Time International Ratio (test code = 6301-6) 1.73 Oral Anticoagulant Therapy INR Values:1. Low Intensity Therapy 1.5 - 2.02 . Moderate Intensity Therapy 2.0 - 3.03. High Intensity Therapy(1) 2.5 - 3. 54. High Intensity Therapy(2) 3.0 - 4.05. Panic Value INR > 5.0 [facility] CenterCreatine Kinase GX8462-12-48 14:53:00* Test Item Value Reference Range Interpretation Comments Creatine Kinase MB (test code = 41324-1) 6.80 0-5.0 H [facility] CenterTroponin N6349-51-65 14:53:00* Test Item Value Reference Range Interpretation Comments Troponin I (test code = GEG2617) 0.027 0-0.300 [facility] CenterCreatine Hlzjcz1283-95-16 14:51:00* Test Item Value Reference Range Interpretation Comments Creatine Kinase (test code = 2157-6) 421 30-200 H [facility] CenterTotal Trhmadpwa7350-26-91 07:42:00* Test Item Value Reference Range Interpretation Comments Total Bilirubin (test code = 1975-2) 0.7 0.2-1.2 [facility] CenterAspartate Amino Transf (AST/SGOT) 2018-12-15 07:42:00* Test Item Value Reference Range Interpretation Comments Aspartate Amino Transf (AST/SGOT) (test code = Aspartate Amino Transf (AST/SGOT)) 17 5-34 [facility] CenterAlanine Aminotransferase (ALT/SGPT) 2018-12-15 07:42:00* Test Item Value Reference Range Interpretation Comments Alanine Aminotransferase (ALT/SGPT) (test code = 1742-6) 11 0-55 [facility] CenterTotal Ndanqic2156-35-21 07:42:00* Test Item Value Reference Range Interpretation Comments Total Protein (test code = 2885-2) 6.1 6.5-8.1 L [facility] CenterAlbumin2019-08-22 07:42:00* Test Item Value Reference Range Interpretation Comments Albumin (test code = 1751-7) 3.1 3.5-5.0 L [facility] CenterGlobulin2019-08-22 07:42:00* Test Item Value Reference Range Interpretation Comments Globulin (test code = 43373-6) 3.0 2.3-3.5 [facility] CenterAlbumin/Globulin Sxwbj3544-58-51 07:42:00 * Test Item Value Reference Range Interpretation Comments Albumin/Globulin Ratio (test code = 1759-0) 1.0 0.8-2.0 [facility] CenterAlkaline Vidpomhfglc7199-92-64 07:42:00* Test Item Value Reference Range Interpretation Comments Alkaline Phosphatase (test code = 6768-6) 73 40-150 [facility] CenterLOWER LEG BFPDX8303-83-02 14:24:00 [facility] [address] [address] Patient Name: TONEY NAVA MR #: [id number] : 1940 Age/Sex: 78/M Req #: [id number] Adm Physician: Ordered by: RICHARD PONCE MD Report #: [id number] Location: ER Room/Bed: Procedure: [id number] DX/LOWER LEG RIGHT Exam Date: Exam Time: REPORT STATUS: Signed Right tib-fib se rhys, 2 views. History: Right lower leg cellulitis. Comparison: 07/25. Findings: There is diffuse soft tissue swelling. Vascular calcifica tions are noted diffusely. Surgical clips are noted in the proximal leg. Bone mineralization is normal. There is no evidence of fracture or dislocation. T here are no erosive or sclerotic lesions. Mild degenerative changes are noted at the knee. IMPRESSION: Diffuse soft tissue swelling without acute os seous abnormality. Signed by: Anand Crum on 12/14/2018 2:26 PM Dic tated By: ANAND CRUM MD 25 COPY TO: RICHARD PONCE MD B-Type Natriuretic Ygqzqme4465-26-04 14:13:00* Test Item Value Reference Range Interpretation Comments B-Type Natriuretic Peptide (test code = 57806-5) 66.7 0-100 [facility] CenterLactic Acid Daowd7966-83-59 13:58:00* Test Item Value Reference Range Interpretation Comments Lactic Acid Level (test code = Lactic Acid Level) 18.5 4.5- 19.8 [facility] CenterBedside Sqptisv4496-08-40 07:55:00* Test Item Value Reference Range Interpretation Comments Bedside Glucose (test code = 75667-8) 353 70-120 H Meter ID: [id number] Army Medical CenterBlood Culture 2018-08-12 15:34:00* Test Item Value Reference Range Interpretation Comments Blood Culture (test code = 45347935) NO GROWTH AFTER 48 HOURS [facility] CenterProthrombin Icld1083-71-13 07:10:00* Test Item Value Reference Range Interpretation Comments Prothrombin Time (test code = 5902-2) 22.4 11.9-14.5 H [facility] CenterProthromb Time International Ratio 2018-08-12 07:10:00* Test Item Value Reference Range Interpretation Comments Prothromb Time International Ratio (test code = 6301-6) 1.89 Oral Anticoagulant Therapy INR Values:1. Low Intensity Therapy 1.5 - 2.02 . Moderate Intensity Therapy 2.0 - 3.03. High Intensity Therapy(1) 2.5 - 3. 54. High Intensity Therapy(2) 3.0 - 4.05. Panic Value INR > 5.0 [facility] Fallsodium Skpro3549-60-78 07:04:00* Test Item Value Reference Range Interpretation Comments Sodium Level (test code = 2951-2) 143 136-145 [facility] CenterPotassium Pquvb2510-63-76 07:04:00* Test Item Value Reference Range Interpretation Comments Potassium Level (test code = 2823-3) 4.0 3.5-5.1 [facility] CenterChloride Gujdl4973-94-63 07:04:00* Test Item Value Reference Range Interpretation Comments Chloride Level (test code = 2075-0) 101 98-107 [facility] CenterCarbon Dioxide Lxswf3913-72-45 07:04:00* Test Item Value Reference Range Interpretation Comments Carbon Dioxide Level (test code = 2028-9) 30 22-29 H [facility] CenterAnion Erk0618-78-96 07:04:00* Test Item Value Reference Range Interpretation Comments Anion Gap (test code = 43906-9) 16.0 8-16 [facility] CenterBlood Urea Mjtwldkh5558-80-59 07:04:00* Test Item Value Reference Range Interpretation Comments Blood Urea Nitrogen (test code = 3094-0) 44 7-26 H [facility] CenterCreatinine2019-04-19 07:04:00* Test Item Value Reference Range Interpretation Comments Creatinine (test code = 2160-0) 1.89 0.72-1.25 H [facility] CenterBUN/Creatinine Vscmr0677-13-48 07:04:00* Test Item Value Reference Range Interpretation Comments BUN/Creatinine Ratio (test code = 3097-3) 23 6-25 [facility] CenterEstimat Glomerular Filtration Rate 2018-08-12 07:04:00* Test Item Value Reference Range Interpretation Comments Estimat Glomerular Filtration Rate (test code = 488346738) 34 >60 L Ranges were taken from the National Kidney Disease Education Program and the [facility] Kidney Foundation literature.Reference ranges:60 or greater: Vmbwxg77-06 ( for 3 consecutive months): Chronic kidney disease 15 or less: Kidney failureVal Verde Regional Medical CenterGlucose Igfhz9630-18-61 07:04:00* Test Item Value Reference Range Interpretation Comments Glucose Level (test code = BCT1782) 271 74-118 H [facility] CenterCalcium Qujji6511-31-70 07:04:00* Test Item Value Reference Range Interpretation Comments Calcium Level (test code = 40401-5) 8.7 8.4-10.2 [facility] CenterWhite Blood Fcmgw2833-73-38 06:57:00* Test Item Value Reference Range Interpretation Comments White Blood Count (test code = 6690-2) 9.79 4.8-10.8 [facility] CenterRed Blood Fchpq1312-91-27 06:57:00* Test Item Value Reference Range Interpretation Comments Red Blood Count (test code = 789-8) 4.54 4.3-5.7 [facility] CenterHemoglobin2019-04-19 06:57:00* Test Item Value Reference Range Interpretation Comments Hemoglobin (test code = 34280-0) 12.8 14.0-18.0 L [facility] CenterHematocrit2019-04-19 06:57:00* Test Item Value Reference Range Interpretation Comments Hematocrit (test code = 4544-3) 40.0 38.2-49.6 [facility] CenterMean Corpuscular Jdkcup8615-13-59 06:57:00* Test Item Value Reference Range Interpretation Comments Mean Corpuscular Volume (test code = 787-2) 88.1 81-99 [facility] CenterMean Corpuscular Qzekoghhuy2279-96-02 06:57:00* Test Item Value Reference Range Interpretation Comments Mean Corpuscular Hemoglobin (test code = 785-6) 28.2 28-32 [facility] CenterMean Corpuscular Hemoglobin Concent 2018-08-12 06:57:00* Test Item Value Reference Range Interpretation Comments Mean Corpuscular Hemoglobin Concent (test code = 786-4) 32.0 31-35 [facility] CenterRed Cell Distribution Lwytz8278-67-09 06:57:00* Test Item Value Reference Range Interpretation Comments Red Cell Distribution Width (test code = 78521-0) 14.2 11.7 -14.4 [facility] CenterPlatelet Fqpvn3093-96-32 06:57:00* Test Item Value Reference Range Interpretation Comments Platelet Count (test code = 777-3) 161 140-360 [facility] CenterNeutrophils (%) (Auto)2018-08-12 06:57:00 * Test Item Value Reference Range Interpretation Comments Neutrophils (%) (Auto) (test code = 38936-0) 64.2 38.7-80.0 [facility] CenterLymphocytes (%) (Auto)2018-08-12 06:57:00 * Test Item Value Reference Range Interpretation Comments Lymphocytes (%) (Auto) (test code = 736-9) 20.4 18.0-39.1 [facility] CenterMonocytes (%) (Auto)2018-08-12 06:57:00* Test Item Value Reference Range Interpretation Comments Monocytes (%) (Auto) (test code = 5905-5) 9.8 4.4-11.3 [facility] CenterEosinophils (%) (Auto)2018-08-12 06:57:00 * Test Item Value Reference Range Interpretation Comments Eosinophils (%) (Auto) (test code = 713-8) 4.6 0.0-6.0 [facility] CenterBasophils (%) (Auto)2018-08-12 06:57:00* Test Item Value Reference Range Interpretation Comments Basophils (%) (Auto) (test code = 706-2) 0.5 0.0-1.0 [facility] CenterIM GRANULOCYTES %2018-08-12 06:57:00* Test Item Value Reference Range Interpretation Comments IM GRANULOCYTES % (test code = IM GRANULOCYTES %) 0.5 0.0- 1.0 [facility] CenterNeutrophils # (Auto)2018-08-12 06:57:00* Test Item Value Reference Range Interpretation Comments Neutrophils # (Auto) (test code = 751-8) 6.3 2.1-6.9 [facility] CenterLymphocytes # (Auto)2018-08-12 06:57:00* Test Item Value Reference Range Interpretation Comments Lymphocytes # (Auto) (test code = 02728-1) 2.0 1.0-3.2 [facility] CenterMonocytes # (Auto)2018-08-12 06:57:00* Test Item Value Reference Range Interpretation Comments Monocytes # (Auto) (test code = 742-7) 1.0 0.2-0.8 H [facility] CenterEosinophils # (Auto)2018-08-12 06:57:00* Test Item Value Reference Range Interpretation Comments Eosinophils # (Auto) (test code = 711-2) 0.5 0.0-0.4 H [facility] CenterBasophils # (Auto)2018-08-12 06:57:00* Test Item Value Reference Range Interpretation Comments Basophils # (Auto) (test code = 704-7) 0.1 0.0-0.1 [facility] CenterAbsolute Immature Granulocyte (auto 2018-08-12 06:57:00* Test Item Value Reference Range Interpretation Comments Absolute Immature Granulocyte (auto (jeyson t code = Absolute Immature Granulocyte (auto) 0.05 0-0.1 [facility] CenterLactic Acid Ymvwj1767-79-05 17:36:00* Test Item Value Reference Range Interpretation Comments Lactic Acid Level (test code = Lactic Acid Level) 17.4 4.5- 19.8 [facility] CenterTotal Mvceujczc7258-73-51 17:35:00* Test Item Value Reference Range Interpretation Comments Total Bilirubin (test code = 1975-2) 0.6 0.2-1.2 [facility] CenterAspartate Amino Transf (AST/SGOT) 2018-08-10 17:35:00* Test Item Value Reference Range Interpretation Comments Aspartate Amino Transf (AST/SGOT) (test code = Aspartate Amino Transf (AST/SGOT)) 19 5-34 [facility] CenterAlanine Aminotransferase (ALT/SGPT) 2018-08-10 17:35:00* Test Item Value Reference Range Interpretation Comments Alanine Aminotransferase (ALT/SGPT) (test code = 1742-6) 22 0-55 [facility] Ieamhmf0586-82-22 17:35:00* Test Item Value Reference Range Interpretation Comments Total Protein (test code = 2885-2) 7.2 6.5-8.1 [facility] CenterGlobulin2019-04-17 17:35:00* Test Item Value Reference Range Interpretation Comments Globulin (test code = 47836-2) 3.9 2.3-3.5 H [facility] CenterAlbumin/Globulin Qehny4877-41-69 17:35:00 * Test Item Value Reference Range Interpretation Comments Albumin/Globulin Ratio (test code = 1759-0) 0.8 0.8-2.0 [facility] CenterAlkaline Zxxrypnxyiy5049-67-22 17:35:00* Test Item Value Reference Range Interpretation Comments Alkaline Phosphatase (test code = 6768-6) 92 40-150 [facility] CenterMagnesium Bxwxi8382-77-81 17:27:00* Test Item Value Reference Range Interpretation Comments Magnesium Level (test code = 09426-6) 2.4 1.3-2.1 H [facility] CenterAlbumin2019-04-17 17:27:00* Test Item Value Reference Range Interpretation Comments Albumin (test code = 1751-7) 3.3 3.5-5.0 L [facility] Mqjpc3348-12-81 17:27:00* Test Item Value Reference Range Interpretation Comments Magnesium Level (test code = 17116-4) 2.4 1.3-2.1 H [facility] CenterLOWER LEG TDGRX7670-11-74 15:57:00 [address] [address] Patient Name: TONEY NAVA MR #: [id number] : 1940 Age/Sex: 78/M Req #: [id number] Adm Physician: Ordered by: NATALIE HENNING LAB[employer]ER [employer]ACH[employer] Report #: [id number] Location: ER Room/Bed: Procedure: [id number] DX/LOWER LEG RIGHT Exam Date: 08/10/18 Exam Time: 1 530 REPORT STATUS: Signed Exa m: Right lower leg, 2 views History: Concern for foreign body. Edema of l ower leg Comparison: None. Findings: No acute, displaced fracture or dislocation. Mild degenerative changes of the partially visualized knee francisco int. No osseous destructive lesions. Soft tissue swelling of the lower leg, most notably about the ankle joint. Metallic clips along the medial aspect of the leg at the level of the knee joint likely reflect prior venous graft harv est. No additional radiopaque soft tissue foreign bodies. Atherosclerotic vasc ular calcifications. Impression: No acute osseous abnormality. [place] rgical clips in the medial soft tissues at the level of the knee joint. Otherw ise no radiopaque foreign bodies. Diffuse soft tissue swelling of the lower leg without subcutaneous gas. Signed by: Dr. Ronald Savage M.D. on 07/25 4:01 PM Dictated By: RONALD SAVAGE MD 160 Transcribed By: ANAT on 08/10/18 1601 COPY TO: NATALIE HENNING [employer] Bedside Kwjpzgp0413-38-08 12:19:00* Test Item Value Reference Range Interpretation Comments Bedside Glucose (test code = 14014-2) 131 70-120 H Meter ID: [id number] Scott & White [facility] – Marble Fallsodium Level 2018-06-13 05:47:00* Test Item Value Reference Range Interpretation Comments Sodium Level (test code = 2951-2) 138 136-145 [facility] CenterPotassium Ligua8728-44-75 05:47:00* Test Item Value Reference Range Interpretation Comments Potassium Level (test code = 2823-3) 3.4 3.5-5.1 L [facility] CenterChloride Ojyod8621-41-33 05:47:00* Test Item Value Reference Range Interpretation Comments Chloride Level (test code = 2075-0) 94 98-107 L [facility] CenterCarbon Dioxide Fkiqu3074-89-88 05:47:00* Test Item Value Reference Range Interpretation Comments Carbon Dioxide Level (test code = 2028-9) 31 22-29 H [facility] CenterAnion Kwd2345-12-11 05:47:00* Test Item Value Reference Range Interpretation Comments Anion Gap (test code = 26949-2) 16.4 8-16 H [facility] CenterBlood Urea Vxhbuvvs2168-33-31 05:47:00* Test Item Value Reference Range Interpretation Comments Blood Urea Nitrogen (test code = 3094-0) 31 7-26 H [facility] CenterCreatinine2019-02-18 05:47:00* Test Item Value Reference Range Interpretation Comments Creatinine (test code = 2160-0) 1.63 0.72-1.25 H [facility] CenterBUN/Creatinine Yatni8824-02-09 05:47:00* Test Item Value Reference Range Interpretation Comments BUN/Creatinine Ratio (test code = 3097-3) 19 6-25 [facility] CenterEstimat Glomerular Filtration Rate 2018-06-13 05:47:00* Test Item Value Reference Range Interpretation Comments Estimat Glomerular Filtration Rate (test code = 930411602) 41 >60 L Ranges were taken from the National Kidney Disease Education Program and the [facility] Kidney Foundation literature.Reference ranges:60 or greater: Clwbeo64-72 ( for 3 consecutive months): Chronic kidney disease 15 or less: Kidney failureVal [facility]de [facility] CenterGlucose Rwngu7533-30-25 05:47:00* Test Item Value Reference Range Interpretation Comments Glucose Level (test code = MMG0389) 175 74-118 H [facility] CenterCalcium Xadzn1405-65-08 05:47:00* Test Item Value Reference Range Interpretation Comments Calcium Level (test code = 69237-0) 8.2 8.4-10.2 L [facility] CenterTotal Nandmjbvh1500-55-10 05:47:00* Test Item Value Reference Range Interpretation Comments Total Bilirubin (test code = 1975-2) 0.5 0.2-1.2 [facility] CenterAspartate Amino Transf (AST/SGOT) 2018-06-13 05:47:00* Test Item Value Reference Range Interpretation Comments Aspartate Amino Transf (AST/SGOT) (test code = Aspartate Amino Transf (AST/SGOT)) 22 5-34 [facility] CenterAlanine Aminotransferase (ALT/SGPT) 2018-06-13 05:47:00* Test Item Value Reference Range Interpretation Comments Alanine Aminotransferase (ALT/SGPT) (test code = 1742-6) 19 0-55 [facility] CenterTotal Wjvgskm0715-39-16 05:47:00* Test Item Value Reference Range Interpretation Comments Total Protein (test code = 2885-2) 6.1 6.5-8.1 L [facility] CenterAlbumin2019-02-18 05:47:00* Test Item Value Reference Range Interpretation Comments Albumin (test code = 1751-7) 2.9 3.5-5.0 L [facility] CenterGlobulin2019-02-18 05:47:00* Test Item Value Reference Range Interpretation Comments Globulin (test code = 51517-1) 3.2 2.3-3.5 [facility] CenterAlbumin/Globulin Woskq5181-08-78 05:47:00 * Test Item Value Reference Range Interpretation Comments Albumin/Globulin Ratio (test code = 1759-0) 0.9 0.8-2.0 [facility] CenterAlkaline Aavvwyxbjfv1962-57-99 05:47:00* Test Item Value Reference Range Interpretation Comments Alkaline Phosphatase (test code = 6768-6) 57 40-150 [facility] CenterProthrombin Jzwz6394-20-43 05:38:00* Test Item Value Reference Range Interpretation Comments Prothrombin Time (test code = 5902-2) 19.2 11.9-14.5 H [facility] CenterProthromb Time International Ratio 2018-06-13 05:38:00* Test Item Value Reference Range Interpretation Comments Prothromb Time International Ratio (test code = 6301-6) 1.48 Oral Anticoagulant Therapy INR Values:1. Low Intensity Therapy 1.5 - 2.02 . Moderate Intensity Therapy 2.0 - 3.03. High Intensity Therapy(1) 2.5 - 3. 54. High Intensity Therapy(2) 3.0 - 4.05. Panic Value INR > 5.0 [facility] CenterWhite Blood Xcqqx0451-58-14 05:19:00* Test Item Value Reference Range Interpretation Comments White Blood Count (test code = 6690-2) 8.65 4.8-10.8 [facility] CenterRed Blood Efxpt4136-98-92 05:19:00* Test Item Value Reference Range Interpretation Comments Red Blood Count (test code = 789-8) 4.10 4.3-5.7 L [facility] CenterHemoglobin2019-02-18 05:19:00* Test Item Value Reference Range Interpretation Comments Hemoglobin (test code = 67481-1) 11.9 14.0-18.0 L [facility] CenterHematocrit2019-02-18 05:19:00* Test Item Value Reference Range Interpretation Comments Hematocrit (test code = 4544-3) 35.9 38.2-49.6 L [facility] CenterMean Corpuscular Llhjef7369-02-54 05:19:00* Test Item Value Reference Range Interpretation Comments Mean Corpuscular Volume (test code = 787-2) 87.6 81-99 [facility] CenterMean Corpuscular Wgrhynqpso0604-33-18 05:19:00* Test Item Value Reference Range Interpretation Comments Mean Corpuscular Hemoglobin (test code = 785-6) 29.0 28-32 [facility] CenterMean Corpuscular Hemoglobin Concent 2018-06-13 05:19:00* Test Item Value Reference Range Interpretation Comments Mean Corpuscular Hemoglobin Concent (test code = 786-4) 33.1 31-35 [facility] CenterRed Cell Distribution Lbxxj3078-04-89 05:19:00* Test Item Value Reference Range Interpretation Comments Red Cell Distribution Width (test code = 24439-1) 13.9 11.7 -14.4 [facility] CenterPlatelet Pewft3337-78-30 05:19:00* Test Item Value Reference Range Interpretation Comments Platelet Count (test code = 777-3) 169 140-360 [facility] CenterNeutrophils (%) (Auto)2018-06-13 05:19:00 * Test Item Value Reference Range Interpretation Comments Neutrophils (%) (Auto) (test code = 16159-2) 63.7 38.7-80.0 [facility] CenterLymphocytes (%) (Auto)2018-06-13 05:19:00 * Test Item Value Reference Range Interpretation Comments Lymphocytes (%) (Auto) (test code = 736-9) 20.7 18.0-39.1 [facility] CenterMonocytes (%) (Auto)2018-06-13 05:19:00* Test Item Value Reference Range Interpretation Comments Monocytes (%) (Auto) (test code = 5905-5) 9.4 4.4-11.3 [facility] CenterEosinophils (%) (Auto)2018-06-13 05:19:00 * Test Item Value Reference Range Interpretation Comments Eosinophils (%) (Auto) (test code = 713-8) 5.4 0.0-6.0 [facility] CenterBasophils (%) (Auto)2018-06-13 05:19:00* Test Item Value Reference Range Interpretation Comments Basophils (%) (Auto) (test code = 706-2) 0.5 0.0-1.0 [facility] CenterIM GRANULOCYTES %2018-06-13 05:19:00* Test Item Value Reference Range Interpretation Comments IM GRANULOCYTES % (test code = IM GRANULOCYTES %) 0.3 0.0- 1.0 [facility] CenterNeutrophils # (Auto)2018-06-13 05:19:00* Test Item Value Reference Range Interpretation Comments Neutrophils # (Auto) (test code = 751-8) 5.5 2.1-6.9 [facility] CenterLymphocytes # (Auto)2018-06-13 05:19:00* Test Item Value Reference Range Interpretation Comments Lymphocytes # (Auto) (test code = 02988-1) 1.8 1.0-3.2 [facility] CenterMonocytes # (Auto)2018-06-13 05:19:00* Test Item Value Reference Range Interpretation Comments Monocytes # (Auto) (test code = 742-7) 0.8 0.2-0.8 [facility] CenterEosinophils # (Auto)2018-06-13 05:19:00* Test Item Value Reference Range Interpretation Comments Eosinophils # (Auto) (test code = 711-2) 0.5 0.0-0.4 H [facility] CenterBasophils # (Auto)2018-06-13 05:19:00* Test Item Value Reference Range Interpretation Comments Basophils # (Auto) (test code = 704-7) 0.0 0.0-0.1 [facility] CenterAbsolute Immature Granulocyte (auto 2018-06-13 05:19:00* Test Item Value Reference Range Interpretation Comments Absolute Immature Granulocyte (auto (jeyson t code = Absolute Immature Granulocyte (auto) 0.03 0-0.1 [facility] CenterBlood Cmayfnm0575-95-11 14:03:00* Test Item Value Reference Range Interpretation Comments Blood Culture (test code = 30274124) NO GROWTH AFTER 5 DAYS, FINAL REPORT [facility] Occult Cnvkm5723-14-59 13:53:00* Test Item Value Reference Range Interpretation Comments Stool Occult Blood (test code = 2335-8) NEGATIVE NEGATIVE [facility] Occult Jsljq0241-02-43 13:53:00* Test Item Value Reference Range Interpretation Comments Stool Occult Blood (test code = 2335-8) NEGATIVE NEGATIVE [facility] Occult Vhymq4988-52-47 13:53:00* Test Item Value Reference Range Interpretation Comments Stool Occult Blood (test code = 2335-8) NEGATIVE NEGATIVE [facility] Occult Nldnr1655-20-95 13:53:00* Test Item Value Reference Range Interpretation Comments Stool Occult Blood (test code = 2335-8) NEGATIVE NEGATIVE [facility] Occult Yfqar7225-08-95 13:53:00* Test Item Value Reference Range Interpretation Comments Stool Occult Blood (test code = 2335-8) NEGATIVE NEGATIVE [facility] CenterNON-TUNNELLED CVC CATH NPPHUET0734-22-13 07:05:00 [facility] [address] [place] [address] Patient Name: TONEY NAVA MR #: [id number] : 1940 Age/Sex: 78/M Req #: [id number] Adm Physician: DENIS GRANADOS MD, ABI Ordered by: CARROLL LIMA MD Report #: [id number] Location: [facility] Room/Bed: [place] [address] Procedure: 021 3-0006 IR/NON-TUNNELLED CVC CATH PLACMNT Exam Date: Exam Time: REPORT STATUS: Signed Date and Time: 06/08/2018 Procedure: 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 Frontal Air Ker ma: 19.7 mGy Contrast used: None Estimated blood loss: Minimal Blood produ cts administered: None Specimens: None Implants: 7 Palestinian 16 cm triple-lumen central venous catheter DISCUSSION: Informed consent was obtained and documented in the medical record after discussion of risks and benefits. The patient was placed in the supine position on the hospital bed. Preliminary sonographic evaluation confirmed patency of the right internal jugular vein, evidenced by compressibility. The right neck was prepped and draped in the standard sterile fashion. 1% lidocaine was infiltrated into the skin and sub cutaneous tissues for local anesthesia. Then under continuous sonographic guid ance, an 18-gauge singlewall needle was used to access the right internal jugu lar vein. A permanent sonographic image was stored in the medical record. A 0. 0 3 5-in. wire was advanced centrally into the IVC under fluoroscopic guidance . The needle was removed over the wire and the tract was dilated. Then a 7 Antolin nch, 16 cm triple-lumen central venous catheter was advanced over the wire to full depth. The wire was removed, and the catheter tip was positioned at the l ow superior vena cava. Each lumen showed adequate bidirectional flow and was f lushed with sterile saline. The catheter was secured to the skin with mon ofilament nylon suture and a sterile dressing was applied. The patient tolerat ed the procedure well without immediate complication. FINDINGS: Patent right internal jugular vein IMPRESSION: Successful placement o f a 7 Palestinian 16 cm triple-lumen central venous catheter by a right internal ju gular approach under sonographic and fluoroscopic guidance. Signed by: Dr Mirna Savage M.D. on 06/09/2018 7:08 AM Dictated By: RONALD SAVAGE MD 7 Transcribed By: JAIRO MCKEON on 06/09/18707 COPY TO: CARROLL LIMA MD US GUIDANCE FOR VASCULAR LEXIC2819-41-70 07:05:00 [place] [address] Patient Name: TONEY NAVA MR #: [id number] : 1940 Age/Sex: 78/M Req #: [id number] Adm Physician: DENIS GRANADOS MD, [facility] Ordered by: DENIS GRANADOS MD Report #: [id number] Location: [facility] Room/Bed: [place] [address] Procedure: 0 [id number] US/US GUIDANCE FOR VASCULAR ACCES Exam Date: 06/08/18 Exam Time: 2010 REPORT S TATUS: Signed Date and Time: 06/08/2018 Procedure: Central venous 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 F rontal Air Kerma: 19.7 mGy Contrast used: None Estimated blood loss: Minimal Blood products administered: None Specimens: None Implants: 7 Palestinian 16 cm triple-lumen central venous catheter DISCUSSION: Informed consent was obtained and documented in the medical record after discussion of risks and benefits. The patient was placed in the supine position on the hospital bed . Preliminary sonographic evaluation confirmed patency of the right internal jugular vein, evidenced by compressibility. The right neck was prepped an d draped in the standard sterile fashion. 1% lidocaine was infiltrated into th e skin and subcutaneous tissues for local anesthesia. Then under continuous so nographic guidance, an 18-gauge singlewall needle was used to access the right internal jugular vein. A permanent sonographic image was stored in the medical record. A 0.0 3 5-in. wire was advanced centrally into the IVC under fluoros copic guidance. The needle was removed over the wire and the tract was dilated . Then a 7 Palestinian, 16 cm triple-lumen central venous catheter was advanced ove r the wire to full depth. The wire was removed, and the catheter tip was posit ioned at the low superior vena cava. Each lumen showed adequate bidirectional flow and was flushed with sterile saline. The catheter was secured to the skin with monofilament nylon suture and a sterile dressing was applied. The p atient tolerated the procedure well without immediate complication. FI NDINGS: Patent right internal jugular vein IMPRESSION: Successf ul placement of a 7 Palestinian 16 cm triple-lumen central venous catheter by a rig ht internal jugular approach under sonographic and fluoroscopic guidance. Signed by: Dr. Ronald Savage M.D. on 06/09/2018 7:08 AM Dictated By: NETTE SAVAGE MD 7 Naylor scribed By: ANAT on 06/09/18 0708 COPY TO: DENIS GRANADOS MD, ABIM CT ABDOMEN/PELVIS [id number] 22:21:00 [place] [address] Patient Name: TONEY NAVA MR #: [id number] : 1940 Age/Sex: 78/M Req #: [id number] Adm Physician: DENIS GRANADOS MD, ABIKathy Ordered by: CARROLL LIMA MD Report #: [id number] Location: [facility] Room/Bed: [facility] 199-1 Procedure: 021 3-0024 CT/CT ABDOMEN/PELVIS WO Exam Date: 06/08/18 E xam Time: 1650 REPORT STATUS: Josephine d EXAM: CT Abdomen and Pelvis WITHOUT contrast INDICATION: ABD PAIN, STRE P BACTEREMIA COMPARISON: Chest CT 04/27/2018 TECHNIQUE: Abdomen and pelvis wer e scanned utilizing a multidetector helical scanner from the lung base to the pubic symphysis without administration of IV contrast. Absence of intravenous contrast decreases sensitivity for detection of focal lesions and vascular pat hology. Coronal and sagittal reformations were obtained. Routine protocol was performed. IV CONTRAST: None ORAL CONTRAST: Gastrografin COMPLICATIONS: None RADIATION DOSE: Total DLP: 974.7 mGy*cm Estimated effective dose: (DLP x 0.015 x size factor) mSv Dose modulat ion, iterative reconstruction, and/or weight based adjustment of the mA/kV was utilized to reduce the radiation dose to as low as reasonably achievable. FINDINGS: LINES and TUBES: None. LOWER THORAX: Left hemidiaphragmatic elevation atelectasis with lingular and lower lobe atelectasis. CABG related changes. Three-vessel coronary artery and aortic calcifications. Main pulmon spencer enlarged measuring 4.2 cm which can be seen with pulmonary hypertension. HEPATOBILIARY: No focal hepatic lesions. No biliary ductal dilation. GALLBLADDER: Absent SPLEEN: No splenomegaly. PANCREAS: No focal m asses or ductal dilatation. ADRENALS: No adrenal nodules KIDNEYS /URETERS: Nonspecific bilateral perinephric stranding, stable within the visua lized portions of the left kidney on chest CT 04/27/2018. No hydronephrosis. No cystic or solid mass lesions. No stones. GI TRACT: No abnormal distention, wall thickening, or evidence of bowel obstruction. Appendix is normal. PELVIC ORGANS/BLADDER: Unremarkable. LYMPH NODES: No lymphadenopathy. VESSELS: There is moderate atherosclerotic disease in the aorta and major arterial branches. No abdominal aortic aneurysm. PERITONEUM / RETROPERITON EUM: No free air or fluid. BONES: There are degenerative changes in the lum bar spine. Median sternotomy wires. SOFT TISSUES: Unremarkable. IMPRESSION: No acute abnormalities. Signed by: DR. Memo rodriguez MD on 06/08/2018 10:30 PM Dictated By: MEMO RIVERA MD 29 Transcribed By: ANAT on 2229 COPY TO: CARROLL LIMA MD Immunoglobulin E7433-06-48 11:04:00* Test Item Value Reference Range Interpretation Comments Immunoglobulin A (test code = 2458-8) 217 91-013 [facility] CenterImmunoglobulin H7158-90-01 11:04:00* Test Item Value Reference Range Interpretation Comments Immunoglobulin G (test code = 2465-3) 434 505-8863 [facility] CenterImmunoglobulin U5416-54-10 11:04:00* Test Item Value Reference Range Interpretation Comments Immunoglobulin M (test code = 2472-9) 127 15-143 Performed at: [employer] [id number] Director: Ren Hoyos MD, Phone: [phone] Verde Regional Medical CenterImmunoglobulin C0636-43-52 11:04:00* Test Item Value Reference Range Interpretation Comments Immunoglobulin A (test code = 2458-8) 217 34-437 [facility] CenterImmunoglobulin S4735-24-05 11:04:00* Test Item Value Reference Range Interpretation Comments Immunoglobulin G (test code = 2465-3) 344 666-9146 [facility] CenterImmunoglobulin E9844-37-97 11:04:00* Test Item Value Reference Range Interpretation Comments Immunoglobulin M (test code = 2472-9) 127 15-143 Performed at: [facility] [id number] Director: Ren Hoyos MD, Phone: [phone] Verde Regional Medical CenterImmunoglobulin Z2656-03-12 11:04:00* Test Item Value Reference Range Interpretation Comments Immunoglobulin A (test code = 2458-8) 217 61-437 [facility] CenterImmunoglobulin O0320-27-87 11:04:00* Test Item Value Reference Range Interpretation Comments Immunoglobulin G (test code = 2465-3) 401 519-2509 [facility] CenterImmunoglobulin Z1567-66-87 11:04:00* Test Item Value Reference Range Interpretation Comments Immunoglobulin M (test code = 2472-9) 127 15-143 Performed at: [facility] [employer] [id number] Director: Ren Hoyos MD, Phone: [phone] Verde Regional Medical CenterImmunoglobulin A8385-50-37 11:04:00* Test Item Value Reference Range Interpretation Comments Immunoglobulin A (test code = 2458-8) 217 61-437 [facility] CenterImmunoglobulin [id number] 11:04:00* Test Item Value Reference Range Interpretation Comments Immunoglobulin G (test code = 2465-3) 446 870-4829 [facility] CenterImmunoglobulin T4482-27-48 11:04:00* Test Item Value Reference Range Interpretation Comments Immunoglobulin M (test code = 2472-9) 127 15-143 Performed at: [employer] [facility] [id number] Director: Ren Hoyos MD, Phone: [phone] Verde Regional Medical CenterImmunoglobulin E6976-58-48 11:04:00* Test Item Value Reference Range Interpretation Comments Immunoglobulin A (test code = 2458-8) 217 61-437 [facility] CenterImmunoglobulin M3582-27-13 11:04:00* Test Item Value Reference Range Interpretation Comments Immunoglobulin G (test code = 2465-3) 836 137-3943 [facility] CenterImmunoglobulin T2053-13-63 11:04:00* Test Item Value Reference Range Interpretation Comments Immunoglobulin M (test code = 2472-9) 127 15-143 Performed at: [facility] [employer] [id number] Director: Ren Hoyos MD, Phone: [phone] Behavioral Health [facility]2019-02-13 08:04:00* Test Item Value Reference Range Interpretation Comments Blood Culture (test code = 600-7) Organism: STREP AGALACTIAE GROUP B [facility]2019-02-13 08:04:00* Test Item Value Reference Range Interpretation Comments Blood Culture (test code = 600-7) Organism: STREP AGALACTIAE GROUP B [facility]2019-02-12 05:41:00* Test Item Value Reference Range Interpretation Comments Phosphorus Level (test code = WPL1800) 3.0 2.3-4.7 [facility] hospitalZawwt2122-37-10 05:41:00* Test Item Value Reference Range Interpretation Comments Magnesium Level (test code = 23372-4) 1.7 1.3-2.1 [facility]2019-02-12 05:41:00* Test Item Value Reference Range Interpretation Comments Phosphorus Level (test code = FRY3800) 3.0 2.3-4.7 [facility]2019-02-12 05:41:00* Test Item Value Reference Range Interpretation Comments Phosphorus Level (test code = ZJI2570) 3.0 2.3-4.7 [facility]2019-02-11 09:47:00* Test Item Value Reference Range Interpretation Comments Urine Culture (test code = 630-4) Organism: STREPTOCOCCUS GROUP C [facility]2019-02-11 09:47:00* Test Item Value Reference Range Interpretation Comments Urine Culture (test code = 630-4) Organism: STREPTOCOCCUS GROUP C [facility]2019-02-11 09:47:00* Test Item Value Reference Range Interpretation Comments Urine Culture (test code = 630-4) Organism: STREPTOCOCCUS GROUP C [facility]2019-02-11 09:47:00* Test Item Value Reference Range Interpretation Comments Urine Culture (test code = 630-4) No Result Data Provided [facility] CenterUrine Hzvzspr6868-92-47 09:47:00* Test Item Value Reference Range Interpretation Comments Urine Culture (test code = 630-4) No Result Data Provided [facility] CenterCHEST SINGLE (PORTABLE)2018-06-06 05:59:00 [facility] [address] [place] [address] Patient Name: TONEY NAVA MR #: [id number] : 1940 Age/Sex: 78/M Req #: [id number] Adm Physician: DENIS GRANADOS MD, HUSSEIN Ordered by: DENIS GRANADOS MD Report #: [id number] Location: ICU Room/Bed: ICU [facility] Procedure: 0 211-0005 DX/CHEST SINGLE (PORTABLE) Exam Date: 06/06/18 Exam Time: 0435 REPORT STATUS: Signed CHEST SINGLE (PORTABLE), 06/06/2018 5:00 AM Technique: CHEST SINGL E (PORTABLE) Comparison: 06/05/2018 Clinical history: Congestive heart failur e Findings: See Impression Impression: Limited by body habitus and p ortable technique 1. Stable enlarged cardiomediastinal silhouette poststernoto my. Central vascular congestion. 2. Unchanged elevated left hemidiaphragm wi th overlying atelectasis and/or pleural fluid. Right costophrenic angle exclud ed. Signed by: Dr Bernardino Knowles MD on 06/06/2018 6:00 AM Dictated By : BERNARDINO KNOWLES MD 0 600 Transcribed By: ANAT on 06/06/18 0600 COPY TO: DENIS GRANADOS ABIM Free Okvivzfgu6346-33-69 17:47:00* Test Item Value Reference Range Interpretation Comments Free Thyroxine (test code = 3024-7) 0.95 0.9-1.8 [facility] CenterThyroid Stimulating Hormone (TSH) 2018-06-05 17:47:00* Test Item Value Reference Range Interpretation Comments Thyroid Stimulating Hormone (TSH) (test code = 55340-0) 2.134 0.350-4.940 [facility] Ygfxssipe5483-41-86 17:47:00* Test Item Value Reference Range Interpretation Comments Free Thyroxine (test code = 3024-7) 0.95 0.9-1.8 [facility] CenterThyroid Stimulating Hormone (TSH) 2018-06-05 17:47:00* Test Item Value Reference Range Interpretation Comments Thyroid Stimulating Hormone (TSH) (test code = 66967-2) 2.134 0.350-4.940 [facility] Jqbnlignl3080-69-51 17:47:00* Test Item Value Reference Range Interpretation Comments Free Thyroxine (test code = 3024-7) 0.95 0.9-1.8 [facility] CenterThyroid Stimulating Hormone (TSH) 2018-06-05 17:47:00* Test Item Value Reference Range Interpretation Comments Thyroid Stimulating Hormone (TSH) (test code = 31717-2) 2.134 0.350-4.940 [facility] Taspozgpc2434-08-84 17:47:00* Test Item Value Reference Range Interpretation Comments Free Thyroxine (test code = 3024-7) 0.95 0.9-1.8 [facility] CenterThyroid Stimulating Hormone (TSH) 2018-06-05 17:47:00* Test Item Value Reference Range Interpretation Comments Thyroid Stimulating Hormone (TSH) (test code = 82453-7) 2.134 0.350-4.940 [facility] Mhbkstbux6740-09-19 17:47:00* Test Item Value Reference Range Interpretation Comments Free Thyroxine (test code = 3024-7) 0.95 0.9-1.8 [facility] CenterThyroid Stimulating Hormone (TSH) 2018-06-05 17:47:00* Test Item Value Reference Range Interpretation Comments Thyroid Stimulating Hormone (TSH) (test code = 95280-6) 2.134 0.350-4.940 [facility] CenterHemoglobin A1c Supimum9482-46-89 17:23:00 * Test Item Value Reference Range Interpretation Comments Hemoglobin A1c Percent (test code = Hemoglobin A1c Percent) 12.8 4.0-7.0 H [facility] CenterHemoglobin A1c Vxruycc8246-94-37 17:23:00 * Test Item Value Reference Range Interpretation Comments Hemoglobin A1c Percent (test code = Hemoglobin A1c Percent) 12.8 4.0-7.0 H [facility] CenterHemoglobin A1c Mlebrmz1910-58-76 17:23:00 * Test Item Value Reference Range Interpretation Comments Hemoglobin A1c Percent (test code = Hemoglobin A1c Percent) 12.8 4.0-7.0 H [facility] CenterHemoglobin A1c Rrybukc0777-15-12 17:23:00 * Test Item Value Reference Range Interpretation Comments Hemoglobin A1c Percent (test code = Hemoglobin A1c Percent) 12.8 4.0-7.0 H [facility] CenterHemoglobin A1c Faygmkd9245-59-63 17:23:00 * Test Item Value Reference Range Interpretation Comments Hemoglobin A1c Percent (test code = Hemoglobin A1c Percent) 12.8 4.0-7.0 H [facility] CenterLactic Acid Efhgm9896-58-15 15:54:00* Test Item Value Reference Range Interpretation Comments Lactic Acid Level (test code = Lactic Acid Level) 21.9 4.5- 19.8 Results repeated and RBV & called Roseann Back at 1552 on 06/05/18 by Aly Almaraz. 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 C OMPARISON: Chest x-ray 05/28/2018 FINDINGS: AP view TUBES and LINES: Median sternotomy wires. LUNGS: Mild breathing motion artifact. Rig ht lung is well-inflated. Left hemidiaphragm is elevated. There are bibasilar atelectasis. There is perihilar interstitial opacities, consistent with inter stitial edema. PLEURA: No pleural effusion or pneumothorax. HEART AND MEDIASTINUM: The cardiomediastinal silhouette is unremarkable. There are ath erosclerotic calcifications within the aorta. BONES AND SOFT TISSUES: No a cute osseous lesion. Soft tissues are unremarkable. UPPER ABDOMEN: No fr ee air under the diaphragm. IMPRESSION: Unchanged interstitial edema . Signed by: Dr. Dillan Baca M.D. on 06/05/2018 11:16 AM Dictated By: DILLAN BACA MD 1116 Transcribed By: ANAT on 06/05/18 1116 COPY TO: NATALIE HENNING [employer] B-Type Natriuretic Nkdvrar8071-44-09 11:08:00* Test Item Value Reference Range Interpretation Comments B-Type Natriuretic Peptide (test code = 71043-5) 64.0 0-100 [facility] Fmazesg9143-83-52 11:08:00* Test Item Value Reference Range Interpretation Comments B-Type Natriuretic Peptide (test code = 32063-7) 64.0 0-100 [facility] CenterCreatine Kinase JD5127-17-87 11:05:00* Test Item Value Reference Range Interpretation Comments Creatine Kinase MB (test code = 04532-4) 5.30 0-5.0 H [facility] CenterTroponin B6206-74-15 11:05:00* Test Item Value Reference Range Interpretation Comments Troponin I (test code = BKW9913) 0.022 0-0.300 [facility] CenterCreatine Kinase FF2686-01-99 11:05:00* Test Item Value Reference Range Interpretation Comments Creatine Kinase MB (test code = 52555-6) 5.30 0-5.0 H [facility] CenterTroponin J4782-06-76 11:05:00* Test Item Value Reference Range Interpretation Comments Troponin I (test code = CDC2060) 0.022 0-0.300 [facility] CenterCreatine Mmtxma1979-92-81 10:58:00* Test Item Value Reference Range Interpretation Comments Creatine Kinase (test code = 2157-6) 259 30-200 H [facility] CenterCreatine Gduode5347-38-42 10:58:00* Test Item Value Reference Range Interpretation Comments Creatine Kinase (test code = 2157-6) 259 30-200 H [facility] CenterUrine Mcfcm1875-49-15 10:49:00* Test Item Value Reference Range Interpretation Comments Urine Color (test code = 5778-6) YELLOW YELLOW [facility] CenterUrine Gbagpnt4219-18-45 10:49:00* Test Item Value Reference Range Interpretation Comments Urine Clarity (test code = 74706-1) CLEAR CLEAR [facility] CenterU[facility] Specific Mhbfboz3554-97-59 10:49:00 * Test Item Value Reference Range Interpretation Comments Urine Specific [place] (test code = 5811-5) 1.010 1.010-1.02 5 [facility] CenterUrine qM9966-47-68 10:49:00* Test Item Value Reference Range Interpretation Comments Urine pH (test code = 80276-9) 6 5-7 [facility] CenterU[facility] Leukocyte Ehwomdla9115-52-35 10:49:00* Test Item Value Reference Range Interpretation Comments Urine Leukocyte Esterase (test code = 5799-2) NEGATIVE NEGATIVE [facility] CenterU[facility] Seinumf1780-84-37 10:49:00* Test Item Value Reference Range Interpretation Comments Urine Nitrite (test code = 14277-4) NEGATIVE NEGATIVE [facility] CenterU[facility] Jxhzqon0196-46-60 10:49:00* Test Item Value Reference Range Interpretation Comments Urine Protein (test code = 5804-0) 2+ NEGATIVE H [facility] Glucose (UA)2018-06-05 10:49:00* Test Item Value Reference Range Interpretation Comments Urine Glucose (UA) (test code = 2349-9) 3+ NEGATIVE H [facility] Dyarzsl2554-52-21 10:49:00* Test Item Value Reference Range Interpretation Comments Urine Ketones (test code = 20191-8) NEGATIVE NEGATIVE [facility] Kgnjityzjrtu2644-69-01 10:49:00* Test Item Value Reference Range Interpretation Comments Urine Urobilinogen (test code = 63713-1) 0.2 0.2-1 [facility] Tlznkstku2304-88-37 10:49:00* Test Item Value Reference Range Interpretation Comments Urine Bilirubin (test code = 1978-6) NEGATIVE NEGATIVE [facility] Asyjr4346-55-45 10:49:00* Test Item Value Reference Range Interpretation Comments Urine Blood (test code = 46504-9) 2+ NEGATIVE H [facility] CenterU[facility] LRO7863-60-17 10:49:00* Test Item Value Reference Range Interpretation Comments Urine WBC (test code = 5821-4) 0-5 0-5 [facility] CenterU[facility] MQC2645-06-73 10:49:00* Test Item Value Reference Range Interpretation Comments Urine RBC (test code = 62092-7) 0-5 0-5 [facility] Rwxgxlwx7054-21-41 10:49:00* Test Item Value Reference Range Interpretation Comments Urine Bacteria (test code = 06959-6) RARE NONE [facility] CenterUrine Epithelial Jklno6284-08-39 10:49:00 * Test Item Value Reference Range Interpretation Comments Urine Epithelial Cells (test code = 13530-1) NONE NONE [facility] CenterU[facility] Vdnag7419-00-24 10:49:00* Test Item Value Reference Range Interpretation Comments Urine Color (test code = 5778-6) YELLOW YELLOW [facility] CenterU[facility] Bpwpoqp1960-35-08 10:49:00* Test Item Value Reference Range Interpretation Comments Urine Clarity (test code = 17304-7) CLEAR CLEAR [facility] CenterU[facility] Specific Cmwjiuw8667-40-05 10:49:00 * Test Item Value Reference Range Interpretation Comments Urine Specific [place] (test code = 5811-5) 1.010 1.010-1.02 5 [facility] CenterU[facility] tT4886-47-45 10:49:00* Test Item Value Reference Range Interpretation Comments Urine pH (test code = 94747-5) 6 5-7 [facility] CenterU[facility] Leukocyte Dukbacxu0871-04-67 10:49:00* Test Item Value Reference Range Interpretation Comments Urine Leukocyte Esterase (test code = 5799-2) NEGATIVE NEGATIVE [facility] CenterU[facility] Bvywnuo5099-73-21 10:49:00* Test Item Value Reference Range Interpretation Comments Urine Nitrite (test code = 37606-6) NEGATIVE NEGATIVE [facility] CenterU[facility] Rppmjbh3091-36-57 10:49:00* Test Item Value Reference Range Interpretation Comments Urine Protein (test code = 5804-0) 2+ NEGATIVE H [facility] CenterUrine Glucose (UA)2018-06-05 10:49:00* Test Item Value Reference Range Interpretation Comments Urine Glucose (UA) (test code = 2349-9) 3+ NEGATIVE H [facility] CenterUrine Ealjixa6718-36-05 10:49:00* Test Item Value Reference Range Interpretation Comments Urine Ketones (test code = 64030-9) NEGATIVE NEGATIVE [facility] CenterU[facility] Xabmlnknxqjt2143-17-36 10:49:00* Test Item Value Reference Range Interpretation Comments Urine Urobilinogen (test code = 44509-0) 0.2 0.2-1 [facility] CenterU[facility] Zwthqcjkx7357-57-17 10:49:00* Test Item Value Reference Range Interpretation Comments Urine Bilirubin (test code = 1978-6) NEGATIVE NEGATIVE [facility] CenterU[facility] Iqqex2847-35-29 10:49:00* Test Item Value Reference Range Interpretation Comments Urine Blood (test code = 82557-1) 2+ NEGATIVE H [facility] CenterU[facility] ZIV4195-81-63 10:49:00* Test Item Value Reference Range Interpretation Comments Urine WBC (test code = 5821-4) 0-5 0-5 [facility] CenterU[facility] LGH7536-55-63 10:49:00* Test Item Value Reference Range Interpretation Comments Urine RBC (test code = 80646-3) 0-5 0-5 [facility] CenterU[facility] Suqapadv9519-06-14 10:49:00* Test Item Value Reference Range Interpretation Comments Urine Bacteria (test code = 69835-5) RARE NONE [facility] CenterUrine Epithelial Nwgjx8920-94-55 10:49:00 * Test Item Value Reference Range Interpretation Comments Urine Epithelial Cells (test code = 79901-3) NONE NONE [facility] CenterU[facility] Yknws3546-80-97 10:49:00* Test Item Value Reference Range Interpretation Comments Urine Color (test code = 5778-6) YELLOW YELLOW [facility] CenterU[facility] Vdxxlph4657-88-01 10:49:00* Test Item Value Reference Range Interpretation Comments Urine Clarity (test code = 74626-3) CLEAR CLEAR [facility] CenterU[facility] Specific Tiphhfk6449-87-41 10:49:00 * Test Item Value Reference Range Interpretation Comments Urine Specific [place] (test code = 5811-5) 1.010 1.010-1.02 5 [facility] CenterUrine fJ4855-22-65 10:49:00* Test Item Value Reference Range Interpretation Comments Urine pH (test code = 17291-2) 6 5-7 [facility] CenterU[facility] Leukocyte Nmflthoo5447-48-36 10:49:00* Test Item Value Reference Range Interpretation Comments Urine Leukocyte Esterase (test code = 5799-2) NEGATIVE NEGATIVE [facility] CenterU[facility] Wxkpkvq4302-78-18 10:49:00* Test Item Value Reference Range Interpretation Comments Urine Nitrite (test code = 87477-2) NEGATIVE NEGATIVE [facility] CenterU[facility] Nkrxlit4907-90-92 10:49:00* Test Item Value Reference Range Interpretation Comments Urine Protein (test code = 5804-0) 2+ NEGATIVE H [facility] Glucose (UA)2018-06-05 10:49:00* Test Item Value Reference Range Interpretation Comments Urine Glucose (UA) (test code = 2349-9) 3+ NEGATIVE H [facility] Cqseqxt1171-22-47 10:49:00* Test Item Value Reference Range Interpretation Comments Urine Ketones (test code = 32130-7) NEGATIVE NEGATIVE [facility] Rckkkukjhwed4927-70-33 10:49:00* Test Item Value Reference Range Interpretation Comments Urine Urobilinogen (test code = 92832-0) 0.2 0.2-1 [facility] Ffejhjxpl1081-71-10 10:49:00* Test Item Value Reference Range Interpretation Comments Urine Bilirubin (test code = 1978-6) NEGATIVE NEGATIVE [facility] Wsecj4077-36-20 10:49:00* Test Item Value Reference Range Interpretation Comments Urine Blood (test code = 28540-2) 2+ NEGATIVE H [facility] CenterU[facility] MGI5602-55-20 10:49:00* Test Item Value Reference Range Interpretation Comments Urine WBC (test code = 5821-4) 0-5 0-5 [facility] CenterU[facility] XQL4962-95-80 10:49:00* Test Item Value Reference Range Interpretation Comments Urine RBC (test code = 34317-2) 0-5 0-5 [facility] Onclqbda2407-99-93 10:49:00* Test Item Value Reference Range Interpretation Comments Urine Bacteria (test code = 48542-7) RARE NONE [facility] CenterUrine Epithelial Ftboz0061-84-23 10:49:00 * Test Item Value Reference Range Interpretation Comments Urine Epithelial Cells (test code = 25602-1) NONE NONE [facility] CenterActivated Partial Thromboplast Time 2018-06-05 10:45:00* Test Item Value Reference Range Interpretation Comments Activated Partial Thromboplast Time (test code = 62752-6) 58.1 23.8-35.5 H [facility] CenterActivated Partial Thromboplast Time 2018-06-05 10:45:00* Test Item Value Reference Range Interpretation Comments Activated Partial Thromboplast Time (test code = 41107-2) 58.1 23.8-35.5 H [facility] CenterActivated Partial Thromboplast Time 2018-06-05 10:45:00* Test Item Value Reference Range Interpretation Comments Activated Partial Thromboplast Time (test code = 48132-5) 58.1 23.8-35.5 H [facility] CenterBedside Vxrjpfv1062-60-16 12:23:00* Test Item Value Reference Range Interpretation Comments Bedside Glucose (test code = 57228-6) 399 70-120 H Meter ID: [id number] [facility]Blood Culture 2018-05-30 12:23:00* Test Item Value Reference Range Interpretation Comments Blood Culture (test code = 68532140) NO GROWTH AFTER 48 HOURS [facility] Fallsodium Uebmo6887-49-24 06:44:00* Test Item Value Reference Range Interpretation Comments Sodium Level (test code = 2951-2) 138 136-145 [facility] CenterPotassium Wiidr8649-34-49 06:44:00* Test Item Value Reference Range Interpretation Comments Potassium Level (test code = 2823-3) 3.9 3.5-5.1 [facility] CenterChloride Brqez3210-30-32 06:44:00* Test Item Value Reference Range Interpretation Comments Chloride Level (test code = 2075-0) 95 98-107 L [facility] CenterCarbon Dioxide Pnapt0465-04-44 06:44:00* Test Item Value Reference Range Interpretation Comments Carbon Dioxide Level (test code = 2028-9) 32 22-29 H [facility] CenterAnion Ghi2609-34-76 06:44:00* Test Item Value Reference Range Interpretation Comments Anion Gap (test code = 27204-9) 14.9 8-16 [facility] CenterBlood Urea Ilvpzghv1401-10-48 06:44:00* Test Item Value Reference Range Interpretation Comments Blood Urea Nitrogen (test code = 3094-0) 29 7-26 H [facility] CenterCreatinine2019-02-04 06:44:00* Test Item Value Reference Range Interpretation Comments Creatinine (test code = 2160-0) 1.58 0.72-1.25 H [facility] CenterBUN/Creatinine Scigb9664-21-65 06:44:00* Test Item Value Reference Range Interpretation Comments BUN/Creatinine Ratio (test code = 3097-3) 18 6-25 [facility] CenterEstimat Glomerular Filtration Rate 2018-05-30 06:44:00* Test Item Value Reference Range Interpretation Comments Estimat Glomerular Filtration Rate (test code = 228398384) 42 >60 L Ranges were taken from the National Kidney Disease Education Program and the [facility] literature.Reference ranges:60 or greater: Nfmohw37-25 ( for 3 consecutive months): Chronic kidney disease 15 or less: Kidney failureVal Verde Regional Medical CenterGlucose Sqnmb0092-90-56 06:44:00* Test Item Value Reference Range Interpretation Comments Glucose Level (test code = WUX6628) 260 74-118 H [facility] CenterCalcium Ceoou1372-54-57 06:44:00* Test Item Value Reference Range Interpretation Comments Calcium Level (test code = 68434-0) 8.1 8.4-10.2 L [facility] CenterProthrombin Vlxi4829-72-53 06:26:00* Test Item Value Reference Range Interpretation Comments Prothrombin Time (test code = 5902-2) 31.4 11.9-14.5 H [facility] CenterProthromb Time International Ratio 2018-05-30 06:26:00* Test Item Value Reference Range Interpretation Comments Prothromb Time International Ratio (test code = 6301-6) 2.79 Oral Anticoagulant Therapy INR Values:1. Low Intensity Therapy 1.5 - 2.02 . Moderate Intensity Therapy 2.0 - 3.03. High Intensity Therapy(1) 2.5 - 3. 54. High Intensity Therapy(2) 3.0 - 4.05. Panic Value INR > 5.0 [facility] CenterWhite Blood Tkzjy9120-19-23 06:03:00* Test Item Value Reference Range Interpretation Comments White Blood Count (test code = 6690-2) 7.44 4.8-10.8 [facility] CenterRed Blood Qruxh8964-65-72 06:03:00* Test Item Value Reference Range Interpretation Comments Red Blood Count (test code = 789-8) 4.31 4.3-5.7 [facility] CenterHemoglobin2019-02-04 06:03:00* Test Item Value Reference Range Interpretation Comments Hemoglobin (test code = 59864-0) 12.4 14.0-18.0 L [facility] CenterHematocrit2019-02-04 06:03:00* Test Item Value Reference Range Interpretation Comments Hematocrit (test code = 4544-3) 38.6 38.2-49.6 [facility] CenterMean Corpuscular Afagfg9906-17-30 06:03:00* Test Item Value Reference Range Interpretation Comments Mean Corpuscular Volume (test code = 787-2) 89.6 81-99 [facility] CenterMean Corpuscular Pdeuclztvp5176-38-42 06:03:00* Test Item Value Reference Range Interpretation Comments Mean Corpuscular Hemoglobin (test code = 785-6) 28.8 28-32 [facility] CenterMean Corpuscular Hemoglobin Concent 2018-05-30 06:03:00* Test Item Value Reference Range Interpretation Comments Mean Corpuscular Hemoglobin Concent (test code = 786-4) 32.1 31-35 [facility] CenterRed Cell Distribution Ohbtl7587-90-09 06:03:00* Test Item Value Reference Range Interpretation Comments Red Cell Distribution Width (test code = 23233-4) 14.2 11.7 -14.4 [facility] CenterPlatelet Kgmvk9820-23-46 06:03:00* Test Item Value Reference Range Interpretation Comments Platelet Count (test code = 777-3) 134 140-360 L [facility] CenterNeutrophils (%) (Auto)2018-05-30 06:03:00 * Test Item Value Reference Range Interpretation Comments Neutrophils (%) (Auto) (test code = 43800-9) 59.3 38.7-80.0 [facility] CenterLymphocytes (%) (Auto)2018-05-30 06:03:00 * Test Item Value Reference Range Interpretation Comments Lymphocytes (%) (Auto) (test code = 736-9) 23.5 18.0-39.1 [facility] CenterMonocytes (%) (Auto)2018-05-30 06:03:00* Test Item Value Reference Range Interpretation Comments Monocytes (%) (Auto) (test code = 5905-5) 10.6 4.4-11.3 [facility] CenterEosinophils (%) (Auto)2018-05-30 06:03:00 * Test Item Value Reference Range Interpretation Comments Eosinophils (%) (Auto) (test code = 713-8) 5.8 0.0-6.0 [facility] CenterBasophils (%) (Auto)2018-05-30 06:03:00* Test Item Value Reference Range Interpretation Comments Basophils (%) (Auto) (test code = 706-2) 0.5 0.0-1.0 [facility] CenterIM GRANULOCYTES %2018-05-30 06:03:00* Test Item Value Reference Range Interpretation Comments IM GRANULOCYTES % (test code = IM GRANULOCYTES %) 0.3 0.0- 1.0 [facility] CenterNeutrophils # (Auto)2018-05-30 06:03:00* Test Item Value Reference Range Interpretation Comments Neutrophils # (Auto) (test code = 751-8) 4.4 2.1-6.9 [facility] CenterLymphocytes # (Auto)2018-05-30 06:03:00* Test Item Value Reference Range Interpretation Comments Lymphocytes # (Auto) (test code = 34083-9) 1.8 1.0-3.2 [facility] CenterMonocytes # (Auto)2018-05-30 06:03:00* Test Item Value Reference Range Interpretation Comments Monocytes # (Auto) (test code = 742-7) 0.8 0.2-0.8 [facility] CenterEosinophils # (Auto)2018-05-30 06:03:00* Test Item Value Reference Range Interpretation Comments Eosinophils # (Auto) (test code = 711-2) 0.4 0.0-0.4 [facility] CenterBasophils # (Auto)2018-05-30 06:03:00* Test Item Value Reference Range Interpretation Comments Basophils # (Auto) (test code = 704-7) 0.0 0.0-0.1 [facility] CenterAbsolute Immature Granulocyte (auto 2018-05-30 06:03:00* Test Item Value Reference Range Interpretation Comments Absolute Immature Granulocyte (auto (jeyson t code = Absolute Immature Granulocyte (auto) 0.02 0-0.1 [facility] CenterTotal Hkkjfamun9540-04-28 08:37:00* Test Item Value Reference Range Interpretation Comments Total Bilirubin (test code = 1975-2) 0.6 0.2-1.2 [facility] CenterAspartate Amino Transf (AST/SGOT) 2018-05-29 08:37:00* Test Item Value Reference Range Interpretation Comments Aspartate Amino Transf (AST/SGOT) (test code = Aspartate Amino Transf (AST/SGOT)) 15 5-34 [facility] CenterAlanine Aminotransferase (ALT/SGPT) 2018-05-29 08:37:00* Test Item Value Reference Range Interpretation Comments Alanine Aminotransferase (ALT/SGPT) (test code = 1742-6) 13 0-55 [facility] CenterTotal Njeshtd0341-88-41 08:37:00* Test Item Value Reference Range Interpretation Comments Total Protein (test code = 2885-2) 6.0 6.5-8.1 L [facility] CenterAlbumin2019-02-03 08:37:00* Test Item Value Reference Range Interpretation Comments Albumin (test code = 1751-7) 3.0 3.5-5.0 L [facility] CenterGlobulin2019-02-03 08:37:00* Test Item Value Reference Range Interpretation Comments Globulin (test code = 51509-4) 3.0 2.3-3.5 [facility] CenterAlbumin/Globulin Mxgyq6349-41-63 08:37:00 * Test Item Value Reference Range Interpretation Comments Albumin/Globulin Ratio (test code = 1759-0) 1.0 0.8-2.0 [facility] CenterAlkaline Lximboeduvi2614-11-27 08:37:00* Test Item Value Reference Range Interpretation Comments Alkaline Phosphatase (test code = 6768-6) 65 40-150 [facility] CenterCreatine Rdttrw4536-43-95 08:28:00* Test Item Value Reference Range Interpretation Comments Creatine Kinase (test code = 2157-6) 265 30-200 H [facility] CenterLactic Acid Ificx9143-87-19 08:13:00* Test Item Value Reference Range Interpretation Comments Lactic Acid Level (test code = Lactic Acid Level) 10.5 4.5- 19.8 [facility] CenterCHEST SINGLE (PORTABLE)2018-05-28 15:25:00 [facility] [address] [place] [address] Patient Name: TONEY NAVA MR #: [id number] : 1940 Age/Sex: 78/M Req #: [id number] Adm Physician: CARROLL LIMA MD Ordered by: CARROLL LIMA MD Report #: [id number] Location: [facility] Room/Bed: 293 Procedure: [id number] D X/CHEST SINGLE (PORTABLE) Exam Date: 05/28/18 Exam T johnny: 1410 REPORT STATUS: Signed ADDENDUM #1 Additional history: Shortness of breath. Signed by: Dr. Hien Blackburn MD on 06/13/2018 9:29 AM ORIGINAL REPORT EXAMINATION: CHEST SINGLE (PORTABLE) COMPARISON: CTA chest 04/27/2018, chest x-ray 04/26/2018 INDICATION: R/O PULM EDEMA [id number] DISCUSSION: Frontal view of the chest obtained at 1426 hours. HEART AND MEDIASTINUM: Stable eventration of the left diaphragm. Left heart border remains obscured LINES: None. LUNGS: No mass or infiltrate in the right lung. Left upper lobe is clear. Pulmonary vascular markings are normal. PLEURA: No large effusions. No pneumothorax. [place] AND SOFT TISSUES: Median sternotomy wires are stable. No focal osseous le sions. The soft tissues are normal. IMPRESSION: No evidence of vascul ar congestion or pulmonary edema. Stable eventration of the left diaphragm. St able cardiomegaly. Signed by: Dr. Hien Blackburn MD on 05/28/2018 3:28 PM Dictated By: HIEN BLACKBURN MD 0929 Transcribed By: ANAT on 05/28/18 1528 COPY TO: CARROLL LIMA MD Urine FGG9699-76-24 13:17:00* Test Item Value Reference Range Interpretation Comments Urine WBC (test code = 5821-4) 0-5 0-5 [facility] CenterUrine CUU5547-87-53 13:17:00* Test Item Value Reference Range Interpretation Comments Urine RBC (test code = 93185-2) 6-10 0-5 H [facility] CenterUrine Mqybeyqm3751-33-99 13:17:00* Test Item Value Reference Range Interpretation Comments Urine Bacteria (test code = 41916-2) FEW NONE [facility] CenterUrine Epithelial Pblxy0865-03-74 13:17:00 * Test Item Value Reference Range Interpretation Comments Urine Epithelial Cells (test code = 95252-9) FEW NONE [facility] CenterUrine Wpgiv1163-70-75 13:15:00* Test Item Value Reference Range Interpretation Comments Urine Color (test code = 5778-6) YELLOW YELLOW [facility] CenterUrine Uruzvin8943-70-46 13:15:00* Test Item Value Reference Range Interpretation Comments Urine Clarity (test code = 98740-6) HAZY CLEAR [facility] Specific Gjlnqmn3677-08-46 13:15:00 * Test Item Value Reference Range Interpretation Comments Urine Specific [place] (test code = 5811-5) 1.005 1.010-1.02 5 L [facility] CenterU[facility] aA1406-49-74 13:15:00* Test Item Value Reference Range Interpretation Comments Urine pH (test code = 12103-5) 6 5-7 [facility] Leukocyte Hrjxfmsy4017-58-66 13:15:00* Test Item Value Reference Range Interpretation Comments Urine Leukocyte Esterase (test code = 5799-2) NEGATIVE NEGATIVE [facility] Bcphlpt5774-61-91 13:15:00* Test Item Value Reference Range Interpretation Comments Urine Nitrite (test code = 48511-3) NEGATIVE NEGATIVE [facility] Iojqbyo9576-23-30 13:15:00* Test Item Value Reference Range Interpretation Comments Urine Protein (test code = 5804-0) NEGATIVE NEGATIVE [facility] CenterU[facility] Glucose (UA)2018-05-28 13:15:00* Test Item Value Reference Range Interpretation Comments Urine Glucose (UA) (test code = 2349-9) 3+ NEGATIVE H [facility] Qdzihoy1206-56-90 13:15:00* Test Item Value Reference Range Interpretation Comments Urine Ketones (test code = 03610-8) NEGATIVE NEGATIVE [facility] Wzlcxhproxzc8186-01-57 13:15:00* Test Item Value Reference Range Interpretation Comments Urine Urobilinogen (test code = 06174-5) 0.2 0.2-1 [facility] CenterU[facility] Kulbinjua4801-10-78 13:15:00* Test Item Value Reference Range Interpretation Comments Urine Bilirubin (test code = 1978-6) NEGATIVE NEGATIVE [facility] CenterU[facility] Ucvvm3290-22-65 13:15:00* Test Item Value Reference Range Interpretation Comments Urine Blood (test code = 21319-4) TRACE NEGATIVE H [facility] CenterB-Type Natriuretic Xbdhnkq6396-11-31 12:54:00* Test Item Value Reference Range Interpretation Comments B-Type Natriuretic Peptide (test code = 84513-7) 82.3 0-100 [facility] CenterCreatine Kinase OO8494-43-19 12:51:00* Test Item Value Reference Range Interpretation Comments Creatine Kinase MB (test code = 66676-3) 5.50 0-5.0 H [facility] CenterTroponin R2245-17-62 12:51:00* Test Item Value Reference Range Interpretation Comments Troponin I (test code = JJQ4035) 0.010 0-0.300 [facility] CenterActivated Partial Thromboplast Time 2018-05-28 12:43:00* Test Item Value Reference Range Interpretation Comments Activated Partial Thromboplast Time (test code = 56202-5) 63.8 23.8-35.5 H [facility] CenterBedside Miczjdz2891-40-45 07:47:00* Test Item Value Reference Range Interpretation Comments Bedside Glucose (test code = 00133-5) 330 70-120 H Meter ID: [id number] [facility] Fallsodium Level 2018-04-30 05:03:00* Test Item Value Reference Range Interpretation Comments Sodium Level (test code = 2951-2) 133 136-145 L [facility] CenterPotassium Rodgk4047-34-51 05:03:00* Test Item Value Reference Range Interpretation Comments Potassium Level (test code = 2823-3) 4.1 3.5-5.1 [facility] CenterChloride Wvymi3196-95-75 05:03:00* Test Item Value Reference Range Interpretation Comments Chloride Level (test code = 2075-0) 93 98-107 L [facility] CenterCarbon Dioxide Vntbc2082-33-69 05:03:00* Test Item Value Reference Range Interpretation Comments Carbon Dioxide Level (test code = 2028-9) 31 22-29 H [facility] CenterAnion Zxn5004-38-76 05:03:00* Test Item Value Reference Range Interpretation Comments Anion Gap (test code = 77180-3) 13.1 8-16 [facility] CenterBlood Urea Lvmkcjch8518-22-54 05:03:00* Test Item Value Reference Range Interpretation Comments Blood Urea Nitrogen (test code = 3094-0) 35 7-26 H [facility] CenterCreatinine2019-01-05 05:03:00* Test Item Value Reference Range Interpretation Comments Creatinine (test code = 2160-0) 1.67 0.72-1.25 H [facility] CenterBUN/Creatinine Eesza6219-28-35 05:03:00* Test Item Value Reference Range Interpretation Comments BUN/Creatinine Ratio (test code = 3097-3) 21 6-25 [facility] CenterEstimat Glomerular Filtration Rate 2018-04-30 05:03:00* Test Item Value Reference Range Interpretation Comments Estimat Glomerular Filtration Rate (test code = 073799027) 40 >60 L Ranges were taken from the National Kidney Disease Education Program and the [facility] [employer] literature.Reference ranges:60 or greater: Mytqgi91-88 ( for 3 consecutive months): Chronic kidney disease 15 or less: Kidney failureVal [facility]de Regional Medical CenterGlucose Hhyak8101-80-30 05:03:00* Test Item Value Reference Range Interpretation Comments Glucose Level (test code = LBH5164) 300 74-118 H [facility] CenterCalcium Jcccl2575-26-83 05:03:00* Test Item Value Reference Range Interpretation Comments Calcium Level (test code = 36755-0) 8.4 8.4-10.2 [facility] CenterWhite Blood Oafvn3488-01-74 04:47:00* Test Item Value Reference Range Interpretation Comments White Blood Count (test code = 6690-2) 7.00 4.8-10.8 [facility] CenterRed Blood Onrnn6368-88-01 04:47:00* Test Item Value Reference Range Interpretation Comments Red Blood Count (test code = 789-8) 4.15 4.3-5.7 L [facility] CenterHemoglobin2019-01-05 04:47:00* Test Item Value Reference Range Interpretation Comments Hemoglobin (test code = 01030-5) 12.1 14.0-18.0 L [facility] CenterHematocrit2019-01-05 04:47:00* Test Item Value Reference Range Interpretation Comments Hematocrit (test code = 4544-3) 37.1 38.2-49.6 L [facility] CenterMean Corpuscular Ftpfcq0548-82-95 04:47:00* Test Item Value Reference Range Interpretation Comments Mean Corpuscular Volume (test code = 787-2) 89.4 81-99 [facility] CenterMean Corpuscular Lgfztesqcy7794-42-81 04:47:00* Test Item Value Reference Range Interpretation Comments Mean Corpuscular Hemoglobin (test code = 785-6) 29.2 28-32 [facility] Corp[facility] Hemoglobin Concent 2018-04-30 04:47:00* Test Item Value Reference Range Interpretation Comments Mean Corpuscular Hemoglobin Concent (test code = 786-4) 32.6 31-35 [facility] CenterRed Cell Distribution Spzxo6632-74-53 04:47:00* Test Item Value Reference Range Interpretation Comments Red Cell Distribution Width (test code = 17938-9) 14.5 11.7 -14.4 H [facility] CenterPlatelet Vwuww5072-60-10 04:47:00* Test Item Value Reference Range Interpretation Comments Platelet Count (test code = 777-3) 132 140-360 L [facility] CenterNeutrophils (%) (Auto)2018-04-30 04:47:00 * Test Item Value Reference Range Interpretation Comments Neutrophils (%) (Auto) (test code = 56083-6) 59.4 38.7-80.0 [facility] CenterLymphocytes (%) (Auto)2018-04-30 04:47:00 * Test Item Value Reference Range Interpretation Comments Lymphocytes (%) (Auto) (test code = 736-9) 21.9 18.0-39.1 [facility] CenterMonocytes (%) (Auto)2018-04-30 04:47:00* Test Item Value Reference Range Interpretation Comments Monocytes (%) (Auto) (test code = 5905-5) 10.1 4.4-11.3 [facility] CenterEosinophils (%) (Auto)2018-04-30 04:47:00 * Test Item Value Reference Range Interpretation Comments Eosinophils (%) (Auto) (test code = 713-8) 8.1 0.0-6.0 H [facility] CenterBasophils (%) (Auto)2018-04-30 04:47:00* Test Item Value Reference Range Interpretation Comments Basophils (%) (Auto) (test code = 706-2) 0.4 0.0-1.0 [facility] CenterIM GRANULOCYTES %2018-04-30 04:47:00* Test Item Value Reference Range Interpretation Comments IM GRANULOCYTES % (test code = IM GRANULOCYTES %) 0.1 0.0- 1.0 [facility] CenterNeutrophils # (Auto)2018-04-30 04:47:00* Test Item Value Reference Range Interpretation Comments Neutrophils # (Auto) (test code = 751-8) 4.2 2.1-6.9 [facility] CenterLymphocytes # (Auto)2018-04-30 04:47:00* Test Item Value Reference Range Interpretation Comments Lymphocytes # (Auto) (test code = 77507-8) 1.5 1.0-3.2 [facility] CenterMonocytes # (Auto)2018-04-30 04:47:00* Test Item Value Reference Range Interpretation Comments Monocytes # (Auto) (test code = 742-7) 0.7 0.2-0.8 [facility] CenterEosinophils # (Auto)2018-04-30 04:47:00* Test Item Value Reference Range Interpretation Comments Eosinophils # (Auto) (test code = 711-2) 0.6 0.0-0.4 H [facility] CenterBasophils # (Auto)2018-04-30 04:47:00* Test Item Value Reference Range Interpretation Comments Basophils # (Auto) (test code = 704-7) 0.0 0.0-0.1 [facility] CenterAbsolute Immature Granulocyte (auto 2018-04-30 04:47:00* Test Item Value Reference Range Interpretation Comments Absolute Immature Granulocyte (auto (jeyson t code = Absolute Immature Granulocyte (auto) 0.01 0-0.1 [facility] CenterBlood Mizpdqw9467-04-18 00:11:00* Test Item Value Reference Range Interpretation Comments Blood Culture (test code = 21087959) NO GROWTH AFTER 72 HOURS [facility] CenterHemoglobin A1c Hrklkqw9948-38-82 12:27:00 * Test Item Value Reference Range Interpretation Comments Hemoglobin A1c Percent (test code = Hemoglobin A1c Percent) 11.2 4.0-7.0 H [facility] CenterHemoglobin A1c Rohqkpq2193-38-09 12:27:00 * Test Item Value Reference Range Interpretation Comments Hemoglobin A1c Percent (test code = Hemoglobin A1c Percent) 11.2 4.0-7.0 H [facility] CenterVitamin B12 Xptrk5025-82-79 06:44:00* Test Item Value Reference Range Interpretation Comments Vitamin B12 Level (test code = 44576-6) 732 213816 [facility] CenterThyroid Stimulating Hormone (TSH) 2018-04-28 06:44:00* Test Item Value Reference Range Interpretation Comments Thyroid Stimulating Hormone (TSH) (test code = 97768-3) 4.660 0.350-4.940 [facility] CenterVitamin B12 Dadrm1473-25-43 06:44:00* Test Item Value Reference Range Interpretation Comments Vitamin B12 Level (test code = 42684-7) 227 213816 [facility] CenterThyroid Stimulating Hormone (TSH) 2018-04-28 06:44:00* Test Item Value Reference Range Interpretation Comments Thyroid Stimulating Hormone (TSH) (test code = 97333-6) 4.660 0.350-4.940 [facility] CenterVitamin B12 Bddgu9030-94-65 06:44:00* Test Item Value Reference Range Interpretation Comments Vitamin B12 Level (test code = 59051-5) 270 213-816 [facility] CenterVitamin B12 Bzovd0036-78-85 06:44:00* Test Item Value Reference Range Interpretation Comments Vitamin B12 Level (test code = 67962-2) 270 213-816 [facility] CenterVitamin B12 Ujmsq4555-03-51 06:44:00* Test Item Value Reference Range Interpretation Comments Vitamin B12 Level (test code = 58444-1) 270 213-816 [facility] CenterVitamin B12 Eihdx4607-75-76 06:44:00* Test Item Value Reference Range Interpretation Comments Vitamin B12 Level (test code = 31708-6) 270 213-816 [facility] CenterProthrombin Gkof4725-49-92 06:08:00* Test Item Value Reference Range Interpretation Comments Prothrombin Time (test code = 5902-2) 23.7 11.9-14.5 H [facility] CenterProthromb Time International Ratio 2018-04-28 06:08:00* Test Item Value Reference Range Interpretation Comments Prothromb Time International Ratio (test code = 6301-6) 1.94 Oral Anticoagulant Therapy INR Values:1. Low Intensity Therapy 1.5 - 2.02 . Moderate Intensity Therapy 2.0 - 3.03. High Intensity Therapy(1) 2.5 - 3. 54. High Intensity Therapy(2) 3.0 - 4.05. Panic Value INR > 5.0 [facility] CenterCT CHEST FT6759-94-11 20:25:00 [place] [address] Patient Name: TONEY NAVA MR #: [id number] : 1940 Age/Sex: 78/M Req #: [id number] Adm Physician: KEVIN NAYLOR MD Ordered by: KEVIN NAYLOR MD Report #: [id number] Location: [facility] Room/Bed: [facility] 184-1 Procedure: [id number] CT/CT CHEST WO Exam Date: 04/27/18 Exam Time: 1756 REPORT STATUS: Signed EXAM: CT Chest W ITHOUT contrast INDICATION: SOB [id number] COMPARISON: C hest x-ray dated 04/26/2018 TECHNIQUE: Chest was scanned utilizing a multid etector helical scanner from the lung apex through the level of the adrenal gl ands without administration of IV contrast. Absence of intravenous contrast de creases sensitivity for detection of lymphadenopathy and vascular pathology. C oronal and sagittal reformations were obtained. Routine protocol was performed . IV CONTRAST: None COMPLICATIONS: None RADIATION DOSE: Total DLP: 713.52 mGy*cm Estimated effective dose: (DLP x 0.014 x size factor) mSv CTDIvol has been reviewed. It is below the limits set by the Radiation Protocol Committee (RPC). FINDINGS: LINES/ TU BES: None. LUNGS AND AIRWAYS: Markedly elevated left hemidiaphragm. With a djacent mild consolidation, likely atelectasis. Mild focal left upper lobe haz y opacification (series 3, image 18]. Airways are normal. PLEURA: The pl eural spaces are clear. HEART AND MEDIASTINUM: The thyroid gland is normal. No mediastinal, hilar or axillary lymphadenopathy. The heart is normal in s ize.. There is no pericardial effusion. Severe atherosclerotic calcification of aorta and coronary arteries. Evidence of CABG surgery. Main pulmonary arter y measures 4 cm, suggestive of pulmonary hypertension. Ectatic ascending thora cic aorta measuring 4.3 cm. UPPER ABDOMEN: Cholecystectomy. BONES: D egenerative changes of thoracic spine. Median sternotomy wires. SOFT TISSUE S: Unremarkable. IMPRESSION: Small focal left upper lobe hazy opacificati on, concerning for developing pneumonia. Elevated left hemidiaphragm with ad jacent consolidation, likely atelectasis. No pleural effusion. Signed by: Dr. Bryn Yeh MD on 04/27/2018 8:48 PM Dictated By: BRYN YEH MD 47 Transcribed By: JAIRO MCKEON on 04/27/182047 COPY TO: KEVIN NAYLOR MD Urine LQS7511-62-73 01:00:00* Test Item Value Reference Range Interpretation Comments Urine WBC (test code = 5821-4) 0-5 0-5 [facility] CenterUrine IVI8131-42-37 01:00:00* Test Item Value Reference Range Interpretation Comments Urine RBC (test code = 90283-6) 11-20 0-5 H [facility] CenterUrine Yvyqwzsk2257-33-89 01:00:00* Test Item Value Reference Range Interpretation Comments Urine Bacteria (test code = 75726-1) MANY NONE H [facility] CenterUrine Epithelial Cjpii4652-63-03 01:00:00 * Test Item Value Reference Range Interpretation Comments Urine Epithelial Cells (test code = 69153-6) FEW NONE [facility] CenterTotal Rnrlgllbp8091-31-55 00:52:00* Test Item Value Reference Range Interpretation Comments Total Bilirubin (test code = 1975-2) 0.9 0.2-1.2 [facility] CenterAspartate Amino Transf (AST/SGOT) 2018-04-27 00:52:00* Test Item Value Reference Range Interpretation Comments Aspartate Amino Transf (AST/SGOT) (test code = Aspartate Amino Transf (AST/SGOT)) 14 5-34 [facility] CenterAlanine Aminotransferase (ALT/SGPT) 2018-04-27 00:52:00* Test Item Value Reference Range Interpretation Comments Alanine Aminotransferase (ALT/SGPT) (test code = 1742-6) 15 0-55 [facility] CenterTotal Wzeiwkk7142-10-48 00:52:00* Test Item Value Reference Range Interpretation Comments Total Protein (test code = 2885-2) 6.9 6.5-8.1 [facility] CenterAlbumin2019-01-02 00:52:00* Test Item Value Reference Range Interpretation Comments Albumin (test code = 1751-7) 3.3 3.5-5.0 L [facility] CenterGlobulin2019-01-02 00:52:00* Test Item Value Reference Range Interpretation Comments Globulin (test code = 56015-2) 3.6 2.3-3.5 H [facility] CenterAlbumin/Globulin Pyoya4467-91-19 00:52:00 * Test Item Value Reference Range Interpretation Comments Albumin/Globulin Ratio (test code = 1759-0) 0.9 0.8-2.0 [facility] CenterAlkaline Tuscrimucxc3641-72-60 00:52:00* Test Item Value Reference Range Interpretation Comments Alkaline Phosphatase (test code = 6768-6) 72 40-150 [facility] CenterUrine Coiyg6229-35-84 00:48:00* Test Item Value Reference Range Interpretation Comments Urine Color (test code = 5778-6) YELLOW YELLOW [facility] CenterUrine Cwfmdht1078-33-46 00:48:00* Test Item Value Reference Range Interpretation Comments Urine Clarity (test code = 50866-1) CLEAR CLEAR [facility] CenterUrine Specific Tgpzlxj6098-74-74 00:48:00 * Test Item Value Reference Range Interpretation Comments Urine Specific [place] (test code = 5811-5) 1.020 1.010-1.02 5 [facility] CenterUrine jG1414-89-84 00:48:00* Test Item Value Reference Range Interpretation Comments Urine pH (test code = 81070-8) 5 5-7 [facility] CenterUrine Leukocyte Cfdlzykj5264-69-33 00:48:00* Test Item Value Reference Range Interpretation Comments Urine Leukocyte Esterase (test code = 5799-2) NEGATIVE NEGATIVE [facility] CenterUrine Vdumcwe3615-54-07 00:48:00* Test Item Value Reference Range Interpretation Comments Urine Nitrite (test code = 67012-4) NEGATIVE NEGATIVE [facility] CenterUrine Bjicgis6287-52-21 00:48:00* Test Item Value Reference Range Interpretation Comments Urine Protein (test code = 5804-0) 1+ NEGATIVE H [facility] CenterUrine Glucose (UA)2018-04-27 00:48:00* Test Item Value Reference Range Interpretation Comments Urine Glucose (UA) (test code = 2349-9) 3+ NEGATIVE H [facility] CenterUrine Mhvtygd9303-72-26 00:48:00* Test Item Value Reference Range Interpretation Comments Urine Ketones (test code = 60640-1) NEGATIVE NEGATIVE [facility] CenterUrine Dwgsgwugdyej4413-15-20 00:48:00* Test Item Value Reference Range Interpretation Comments Urine Urobilinogen (test code = 54692-4) 0.2 0.2-1 [facility] CenterUrine Anwhogxck4708-75-33 00:48:00* Test Item Value Reference Range Interpretation Comments Urine Bilirubin (test code = 1978-6) NEGATIVE NEGATIVE [facility] CenterUrine Ruybg0911-93-52 00:48:00* Test Item Value Reference Range Interpretation Comments Urine Blood (test code = 77602-8) 1+ NEGATIVE H [facility] CenterLactic Acid Xhyhe3944-28-32 00:44:00* Test Item Value Reference Range Interpretation Comments Lactic Acid Level (test code = Lactic Acid Level) 16.4 4.5- 19.8 [facility] CenterInfluenza Virus Types A,B Antigen 2018-04-27 00:33:00* Test Item Value Reference Range Interpretation Comments Influenza Virus Types A,B Antigen (test code = 07516-0) NEGATIVE NEGATIVE [facility] CenterInfluenza Virus Types A,B Antigen 2018-04-27 00:33:00* Test Item Value Reference Range Interpretation Comments Influenza Virus Types A,B Antigen (test code = 10470-2) NEGATIVE NEGATIVE [facility] CenterInfluenza Virus Types A,B Antigen 2018-04-27 00:33:00* Test Item Value Reference Range Interpretation Comments Influenza Virus Types A,B Antigen (test code = 34433-2) NEGATIVE NEGATIVE [facility] CenterInfluenza Virus Types A,B Antigen 2018-04-27 00:33:00* Test Item Value Reference Range Interpretation Comments Influenza Virus Types A,B Antigen (test code = 87137-8) NEGATIVE NEGATIVE [facility] CenterInfluenza Virus Types A,B Antigen 2018-04-27 00:33:00* Test Item Value Reference Range Interpretation Comments Influenza Virus Types A,B Antigen (test code = 70152-8) NEGATIVE NEGATIVE [facility] CenterCHEST SINGLE (PORTABLE)2018-04-26 23:05:00 [facility] [address] [place] [address] Patient Name: TONEY NAVA MR #: [id number] : 1940 Age/Sex: 78/M Req #: [id number] Adm Physician: Ordered by: MADISON COFFEY MD Report #: [id number] Location: ER Room/Bed: Procedure: [id number] 2 DX/CHEST SINGLE (PORTABLE) Exam Date: 04/26/18 Sravanthi m Time: 2250 REPORT STATUS: Signed EXAMINATION: CHEST SINGLE (PORTABLE) INDICATION: Fever. COMP ARISON: Chest x-ray 03/28/2018, chest CT 08/14/2016 FINDINGS: AP view TUBES and LINES: None. LUNGS/PLEURA: Stable appearance of the chest with persistent left basilar opacity. The left hemidiaphragm is elevated, as noted on chest CT 08/14/2016. Right lung is clear. No pneumothorax. HEART AND MEDIASTINUM: Stable, left heart border silhouetted. BONES AND SOFT T ISSUES: No acute osseous lesion. Sternotomy wires. Soft tissues are unremarka ble. UPPER ABDOMEN: No free air under the diaphragm. IMPRESSION: Stable exam from 03/28/2018 with left basilar opacity likely representing a c ombination of left hemidiaphragm elevation as seen on chest CT 08/14/2016 with associated atelectasis. Superimposed effusion/consolidation cannot be excluded. Signed by: DR. Memo Rivera MD on 04/26/2018 11:11 PM Dictated By: Cecy RIVERA MD 10 Tr anscribed By: ANAT on 04/26/182310 COPY TO: MADISON COFFEY MD Urine Wtyeuzd9304-65-91 11:16:00* Test Item Value Reference Range Interpretation Comments Urine Culture (test code = 630-4) Organism: SERRATIA MARCESCENS [facility] CenterUrine Bdzemun5239-13-49 11:16:00* Test Item Value Reference Range Interpretation Comments Urine Culture (test code = 630-4) Organism: SERRATIA MARCESCENS [facility] CenterUrine Sjgkfto6343-35-08 11:16:00* Test Item Value Reference Range Interpretation Comments Urine Culture (test code = 630-4) Organism: SERRATIA MARCESCENS [facility] CenterUrine Kwzdzjy8887-13-61 11:16:00* Test Item Value Reference Range Interpretation Comments Urine Culture (test code = 630-4) Organism: SERRATIA MARCESCENS [facility] CenterUrine Aalbhjc5694-14-14 11:16:00* Test Item Value Reference Range Interpretation Comments Urine Culture (test code = 630-4) Organism: SERRATIA MARCESCENS [facility] CenterBedside Zhkjbsk6026-89-81 11:49:00* Test Item Value Reference Range Interpretation Comments Bedside Glucose (test code = 76845-8) 271 70-120 H Meter ID: [id number] [facility]White Blood Count 2018-04-01 05:55:00* Test Item Value Reference Range Interpretation Comments White Blood Count (test code = 6690-2) 6.54 4.8-10.8 [facility] CenterRed Blood Zazkr5397-27-86 05:55:00* Test Item Value Reference Range Interpretation Comments Red Blood Count (test code = 789-8) 4.05 4.3-5.7 L [facility] CenterHemoglobin2018-12-07 05:55:00* Test Item Value Reference Range Interpretation Comments Hemoglobin (test code = 53259-4) 11.9 14.0-18.0 L [facility] CenterHematocrit2018-12-07 05:55:00* Test Item Value Reference Range Interpretation Comments Hematocrit (test code = 4544-3) 36.7 38.2-49.6 L [facility] CenterMean Corpuscular Qfguju8865-01-16 05:55:00* Test Item Value Reference Range Interpretation Comments Mean Corpuscular Volume (test code = 787-2) 90.6 81-99 [facility] CenterMean Corpuscular Ixinwrsysc5360-95-75 05:55:00* Test Item Value Reference Range Interpretation Comments Mean Corpuscular Hemoglobin (test code = 785-6) 29.4 28-32 [facility] CenterMean Corpuscular Hemoglobin Concent 2018-04-01 05:55:00* Test Item Value Reference Range Interpretation Comments Mean Corpuscular Hemoglobin Concent (test code = 786-4) 32.4 31-35 [facility] CenterRed Cell Distribution Twgci8361-48-51 05:55:00* Test Item Value Reference Range Interpretation Comments Red Cell Distribution Width (test code = 40424-5) 14.7 11.7 -14.4 H [facility] CenterPlatelet Ypxqb8761-03-49 05:55:00* Test Item Value Reference Range Interpretation Comments Platelet Count (test code = 777-3) 151 140-360 [facility] CenterNeutrophils (%) (Auto)2018-04-01 05:55:00 * Test Item Value Reference Range Interpretation Comments Neutrophils (%) (Auto) (test code = 81871-0) 55.6 38.7-80.0 [facility] CenterLymphocytes (%) (Auto)2018-04-01 05:55:00 * Test Item Value Reference Range Interpretation Comments Lymphocytes (%) (Auto) (test code = 736-9) 24.8 18.0-39.1 [facility] CenterMonocytes (%) (Auto)2018-04-01 05:55:00* Test Item Value Reference Range Interpretation Comments Monocytes (%) (Auto) (test code = 5905-5) 11.2 4.4-11.3 [facility] CenterEosinophils (%) (Auto)2018-04-01 05:55:00 * Test Item Value Reference Range Interpretation Comments Eosinophils (%) (Auto) (test code = 713-8) 7.6 0.0-6.0 H [facility] CenterBasophils (%) (Auto)2018-04-01 05:55:00* Test Item Value Reference Range Interpretation Comments Basophils (%) (Auto) (test code = 706-2) 0.5 0.0-1.0 [facility] CenterIM GRANULOCYTES %2018-04-01 05:55:00* Test Item Value Reference Range Interpretation Comments IM GRANULOCYTES % (test code = IM GRANULOCYTES %) 0.3 0.0- 1.0 [facility] CenterNeutrophils # (Auto)2018-04-01 05:55:00* Test Item Value Reference Range Interpretation Comments Neutrophils # (Auto) (test code = 751-8) 3.6 2.1-6.9 [facility] CenterLymphocytes # (Auto)2018-04-01 05:55:00* Test Item Value Reference Range Interpretation Comments Lymphocytes # (Auto) (test code = 62466-5) 1.6 1.0-3.2 [facility] CenterMonocytes # (Auto)2018-04-01 05:55:00* Test Item Value Reference Range Interpretation Comments Monocytes # (Auto) (test code = 742-7) 0.7 0.2-0.8 [facility] CenterEosinophils # (Auto)2018-04-01 05:55:00* Test Item Value Reference Range Interpretation Comments Eosinophils # (Auto) (test code = 711-2) 0.5 0.0-0.4 H [facility] CenterBasophils # (Auto)2018-04-01 05:55:00* Test Item Value Reference Range Interpretation Comments Basophils # (Auto) (test code = 704-7) 0.0 0.0-0.1 [facility] CenterAbsolute Immature Granulocyte (auto 2018-04-01 05:55:00* Test Item Value Reference Range Interpretation Comments Absolute Immature Granulocyte (auto (jeyson t code = Absolute Immature Granulocyte (auto) 0.02 0-0.1 [facility] Fallsodium Frgzs0102-98-14 05:35:00* Test Item Value Reference Range Interpretation Comments Sodium Level (test code = 2951-2) 139 136-145 [facility] CenterPotassium Ropnz4792-95-87 05:35:00* Test Item Value Reference Range Interpretation Comments Potassium Level (test code = 2823-3) 3.9 3.5-5.1 [facility] CenterChloride Yfehb3094-71-56 05:35:00* Test Item Value Reference Range Interpretation Comments Chloride Level (test code = 2075-0) 99 98-107 [facility] CenterCarbon Dioxide Xnljn3202-95-98 05:35:00* Test Item Value Reference Range Interpretation Comments Carbon Dioxide Level (test code = 2028-9) 30 22-29 H [facility] CenterAnion Vpv4221-19-45 05:35:00* Test Item Value Reference Range Interpretation Comments Anion Gap (test code = 99903-1) 13.9 8-16 [facility] CenterBlood Urea Pzwwivfq0895-37-54 05:35:00* Test Item Value Reference Range Interpretation Comments Blood Urea Nitrogen (test code = 3094-0) 30 7-26 H [facility] CenterCreatinine2018-12-07 05:35:00* Test Item Value Reference Range Interpretation Comments Creatinine (test code = 2160-0) 1.55 0.72-1.25 H [facility] CenterBUN/Creatinine Sxyil4941-69-05 05:35:00* Test Item Value Reference Range Interpretation Comments BUN/Creatinine Ratio (test code = 3097-3) 19 6-25 [facility] CenterEstimat Glomerular Filtration Rate 2018-04-01 05:35:00* Test Item Value Reference Range Interpretation Comments Estimat Glomerular Filtration Rate (test code = 986658464) 43 >60 L Ranges were taken from the National Kidney Disease Education Program and the [facility] literature.Reference ranges:60 or greater: Kotysp07-91 ( for 3 consecutive months): Chronic kidney disease 15 or less: Kidney failureVal [facility]de Regional Medical CenterGlucose Hznjw5218-18-98 05:35:00* Test Item Value Reference Range Interpretation Comments Glucose Level (test code = AHY3229) 275 74-118 H [facility] CenterCalcium Qowlt5795-63-03 05:35:00* Test Item Value Reference Range Interpretation Comments Calcium Level (test code = 40343-4) 8.1 8.4-10.2 L [facility] CenterProthrombin Tivv2591-46-43 05:30:00* Test Item Value Reference Range Interpretation Comments Prothrombin Time (test code = 5902-2) 28.8 11.9-14.5 H [facility] CenterProthromb Time International Ratio 2018-04-01 05:30:00* Test Item Value Reference Range Interpretation Comments Prothromb Time International Ratio (test code = 6301-6) 2.49 Oral Anticoagulant Therapy INR Values:1. Low Intensity Therapy 1.5 - 2.02 . Moderate Intensity Therapy 2.0 - 3.03. High Intensity Therapy(1) 2.5 - 3. 54. High Intensity Therapy(2) 3.0 - 4.05. Panic Value INR > 5.0 [facility] CenterBlood Wbgdsxj1233-42-10 16:55:00* Test Item Value Reference Range Interpretation Comments Blood Culture (test code = 34772285) NO GROWTH AFTER 72 HOURS [facility] CenterThyroid Stimulating Hormone (TSH) 2018-03-31 06:21:00* Test Item Value Reference Range Interpretation Comments Thyroid Stimulating Hormone (TSH) (test code = 88716-2) 2.795 0.350-4.940 [facility] CenterTotal Xlotzibxa0646-08-51 05:55:00* Test Item Value Reference Range Interpretation Comments Total Bilirubin (test code = 1975-2) 0.4 0.2-1.2 [facility] CenterAspartate Amino Transf (AST/SGOT) 2018-03-31 05:55:00* Test Item Value Reference Range Interpretation Comments Aspartate Amino Transf (AST/SGOT) (test code = Aspartate Amino Transf (AST/SGOT)) 21 5-34 [facility] CenterAlanine Aminotransferase (ALT/SGPT) 2018-03-31 05:55:00* Test Item Value Reference Range Interpretation Comments Alanine Aminotransferase (ALT/SGPT) (test code = 1742-6) 18 0-55 [facility] CenterTotal Yutshzn8549-22-63 05:55:00* Test Item Value Reference Range Interpretation Comments Total Protein (test code = 2885-2) 6.4 6.5-8.1 L [facility] CenterAlbumin2018-12-06 05:55:00* Test Item Value Reference Range Interpretation Comments Albumin (test code = 1751-7) 2.8 3.5-5.0 L [facility] CenterGlobulin2018-12-06 05:55:00* Test Item Value Reference Range Interpretation Comments Globulin (test code = 27735-8) 3.6 2.3-3.5 H [facility] CenterAlbumin/Globulin Pwphp6627-09-65 05:55:00 * Test Item Value Reference Range Interpretation Comments Albumin/Globulin Ratio (test code = 1759-0) 0.8 0.8-2.0 [facility] CenterAlkaline Fdencfiroqg3105-00-03 05:55:00* Test Item Value Reference Range Interpretation Comments Alkaline Phosphatase (test code = 6768-6) 64 40-150 [facility] CenterTriglycerides Whdnj5608-90-05 05:55:00* Test Item Value Reference Range Interpretation Comments Triglycerides Level (test code = 2571-8) 183 0-149 H [facility] CenterCholesterol Xqrjv2681-53-20 05:55:00* Test Item Value Reference Range Interpretation Comments Cholesterol Level (test code = 2093-3) 124 0-199 Less than 200 mg/dL Low Rtgq178 - 239 mg/dL Borderline Yeah710 m g/dl and greater High Risk [facility] CenterLDL Flwqodgiuse7900-07-06 05:55:00* Test Item Value Reference Range Interpretation Comments LDL Cholesterol (test code = 2089-1) 58 60-[address] [facility] Ipjmvsqspzp7751-97-21 05:55:00* Test Item Value Reference Range Interpretation Comments HDL Cholesterol (test code = 2085-9) 29 40-60 L [facility] CenterCholesterol/HDL Nrlkj5517-01-44 05:55:00 * Test Item Value Reference Range Interpretation Comments Cholesterol/HDL Ratio (test code = 9830-1) 4.3 3.9-4.7 [facility] CenterTriglycerides Bvhxc9738-48-06 05:55:00* Test Item Value Reference Range Interpretation Comments Triglycerides Level (test code = 2571-8) 183 0-149 H [facility] CenterCholesterol Byrlh5295-73-55 05:55:00* Test Item Value Reference Range Interpretation Comments Cholesterol Level (test code = 2093-3) 124 0-199 Less than 200 mg/dL Low Flyj576 - 239 mg/dL Borderline Hpif935 m g/dl and greater High Risk [facility] Tpngyjzpzwr6562-44-58 05:55:00* Test Item Value Reference Range Interpretation Comments LDL Cholesterol (test code = 2089-1) 58 60-[address] [facility] Jwmghbgiyan6970-67-45 05:55:00* Test Item Value Reference Range Interpretation Comments HDL Cholesterol (test code = 2085-9) 29 40-60 L [facility] CenterCholesterol/HDL Nqqeh8413-28-59 05:55:00 * Test Item Value Reference Range Interpretation Comments Cholesterol/HDL Ratio (test code = 9830-1) 4.3 3.9-4.7 [facility] CenterTriglycerides Clwzm2954-16-52 05:55:00* Test Item Value Reference Range Interpretation Comments Triglycerides Level (test code = 2571-8) 183 0-149 H [facility] CenterCholesterol Bcpky1474-12-88 05:55:00* Test Item Value Reference Range Interpretation Comments Cholesterol Level (test code = 2093-3) 124 0-199 Less than 200 mg/dL Low Cyxx166 - 239 mg/dL Borderline Tqlf928 m g/dl and greater High Risk [facility] CenterLDL Bwwhkqyyman5249-47-19 05:55:00* Test Item Value Reference Range Interpretation Comments LDL Cholesterol (test code = 2089-1) 58 60-[address] [facility] Khftywwyhbq3796-74-38 05:55:00* Test Item Value Reference Range Interpretation Comments HDL Cholesterol (test code = 2085-9) 29 40-60 L [facility] CenterCholesterol/HDL Fpuyp9212-38-60 05:55:00 * Test Item Value Reference Range Interpretation Comments Cholesterol/HDL Ratio (test code = 9830-1) 4.3 3.9-4.7 [facility] CenterTriglycerides Bnqia2343-92-73 05:55:00* Test Item Value Reference Range Interpretation Comments Triglycerides Level (test code = 2571-8) 183 0-149 H [facility] CenterCholesterol Nsloa3528-91-51 05:55:00* Test Item Value Reference Range Interpretation Comments Cholesterol Level (test code = 2093-3) 124 0-199 Less than 200 mg/dL Low Okir127 - 239 mg/dL Borderline Wsnj359 m g/dl and greater High Risk [facility] CenterLDL Zuncycupamu3389-57-29 05:55:00* Test Item Value Reference Range Interpretation Comments LDL Cholesterol (test code = 2089-1) 58 60-[address] [facility] Sqkbiyqgvba2291-65-08 05:55:00* Test Item Value Reference Range Interpretation Comments HDL Cholesterol (test code = 2085-9) 29 40-60 L [facility] CenterCholesterol/HDL Wughs8506-71-89 05:55:00 * Test Item Value Reference Range Interpretation Comments Cholesterol/HDL Ratio (test code = 9830-1) 4.3 3.9-4.7 [facility] CenterTriglycerides Psara2007-08-99 05:55:00* Test Item Value Reference Range Interpretation Comments Triglycerides Level (test code = 2571-8) 183 0-149 H [facility] CenterCholesterol Rwpuo0278-39-20 05:55:00* Test Item Value Reference Range Interpretation Comments Cholesterol Level (test code = 2093-3) 124 0-199 Less than 200 mg/dL Low Cvgk972 - 239 mg/dL Borderline Lgxl597 m g/dl and greater High Risk [facility] CenterLDL Kimtjbvlqno1554-30-19 05:55:00* Test Item Value Reference Range Interpretation Comments LDL Cholesterol (test code = 2089-1) 58 60-130 [facility] Isqnvqxjweb4665-91-48 05:55:00* Test Item Value Reference Range Interpretation Comments HDL Cholesterol (test code = 2085-9) 29 40-60 L [facility] CenterCholesterol/HDL Ecgtb1054-51-43 05:55:00 * Test Item Value Reference Range Interpretation Comments Cholesterol/HDL Ratio (test code = 9830-1) 4.3 3.9-4.7 [facility] CenterTriglycerides Qugcz2610-68-12 05:55:00* Test Item Value Reference Range Interpretation Comments Triglycerides Level (test code = 2571-8) 183 0-149 H [facility] CenterCholesterol Asrqz5533-70-81 05:55:00* Test Item Value Reference Range Interpretation Comments Cholesterol Level (test code = 2093-3) 124 0-199 Less than 200 mg/dL Low Tigd625 - 239 mg/dL Borderline Kqza526 m g/dl and greater High Risk [facility] CenterLDL Acftijzsdmo1719-77-42 05:55:00* Test Item Value Reference Range Interpretation Comments LDL Cholesterol (test code = 2089-1) 58 60-[address] [facility] Tnhcbefvdbv3794-95-68 05:55:00* Test Item Value Reference Range Interpretation Comments HDL Cholesterol (test code = 2085-9) 29 40-60 L [facility] CenterCholesterol/HDL Aleev7281-02-80 05:55:00 * Test Item Value Reference Range Interpretation Comments Cholesterol/HDL Ratio (test code = 9830-1) 4.3 3.9-4.7 [facility] CenterUrine Ubepsoa7030-79-66 07:41:00* Test Item Value Reference Range Interpretation Comments Urine Culture (test code = 630-4) Organism: YEAST SPECIES [facility] CJRP5489-67-12 18:08:00 [facility] [address] [address] Patient Name: TONEY NAVA MR #: [id number] : 1940 Age/Sex: 78/M Req #: [id number] Adm Physician: CARROLL LIMA MD Ordered by: CARROLL LIMA MD Report #: [id number] Location: MED/SURG2 Room/Bed: [facility] Procedure: [id number] D X/LOWER LEG LEFT Exam Date: 03/29/18 Exam Time: 1720 REPORT STATUS: Signed ANKLE 3+ VIEWS LEFT, LOWER LEG LEFT - 3 views HISTORY: Left leg swelling/cellulitis . COMPARISON: None available. FINDINGS: Bones: No acute displ aced fracture. Osseous alignment is within normal limits. Joints: Mil d degenerative changes of the tibiotalar joint. Degenerative changes of the kn ee. Soft tissues: Mild bimalleolar soft tissue swelling. Phleboliths. Vas cular calcifications. Surgical clips in the posterior inferior knee medially. IMPRESSION: No acute osseous abnormality. Signed by: Dr. Selene Mckeon M.D. on 03/29/2018 6:12 PM Dictated By: CELINA Ackerman 11 Transcribed By: ANAT on 03/29/181811 COPY TO: CARROLL LIMA MD ANKLE 3+ VIEWS FBFI9475-45-17 18:08:00 [facility] [address] [address] Patient Name: TONEY NAVA MR #: [id number] : 1940 Age/Sex: 78/M Req #: [id number] Adm Physician: CARROLL LIMA MD Ordered by: CARROLL LIMA MD Report #: [id number] Location: MED/SURG2 Room/Bed: [facility] Procedure: [id number] D X/ANKLE 3+ VIEWS LEFT Exam Date: 03/29/18 Exam Time: 1720 REPORT STATUS: Signed ANKLE 3+ VIEWS LEFT, LOWER LEG LEFT - 3 views HISTORY: Left leg swelling/cellu litis. COMPARISON: None available. FINDINGS: Bones: No acute displaced fracture. Osseous alignment is within normal limits. Joints: Mild degenerative changes of the tibiotalar joint. Degenerative changes of the knee. Soft tissues: Mild bimalleolar soft tissue swelling. Phleboliths. Vascular calcifications. Surgical clips in the posterior inferior knee media lly. IMPRESSION: No acute osseous abnormality. Signed by: Dr. Selene Mckeon M.D. on 03/29/2018 6:12 PM Dictated By: CELINA MCKOEN MD, MD 11 Transcr ibed By: ANAT on 03/29/181811 COPY TO: CARROLL LIMA MD Urine Zqkgo6178-64-41 18:00:00* Test Item Value Reference Range Interpretation Comments Urine Color (test code = 5778-6) YELLOW YELLOW [facility] Ayifxfh1810-32-96 18:00:00* Test Item Value Reference Range Interpretation Comments Urine Clarity (test code = 33904-1) CLEAR CLEAR [facility] CenterUrine Specific Vojlfhm3189-39-20 18:00:00 * Test Item Value Reference Range Interpretation Comments Urine Specific [place] (test code = 5811-5) 1.020 1.010-1.02 5 [facility] CenterUrine lN3929-10-50 18:00:00* Test Item Value Reference Range Interpretation Comments Urine pH (test code = 54719-6) 6 5-7 [facility] CenterUrine Leukocyte Tpfvglza4729-27-81 18:00:00* Test Item Value Reference Range Interpretation Comments Urine Leukocyte Esterase (test code = 5799-2) NEGATIVE NEGATIVE [facility] CenterUrine Rsycdej0406-67-59 18:00:00* Test Item Value Reference Range Interpretation Comments Urine Nitrite (test code = 51006-5) NEGATIVE NEGATIVE [facility] CenterUrine Wrmmerf2937-68-91 18:00:00* Test Item Value Reference Range Interpretation Comments Urine Protein (test code = 5804-0) 2+ NEGATIVE [facility] Glucose (UA)2018-03-28 18:00:00* Test Item Value Reference Range Interpretation Comments Urine Glucose (UA) (test code = 2349-9) 3+ NEGATIVE [facility] Pafdhut4248-67-08 18:00:00* Test Item Value Reference Range Interpretation Comments Urine Ketones (test code = 61856-7) NEGATIVE NEGATIVE [facility] Rziwbwttyjjp3062-27-11 18:00:00* Test Item Value Reference Range Interpretation Comments Urine Urobilinogen (test code = 21156-9) 0.2 0.2-1 [facility] CenterUrine Xcynltara6454-61-31 18:00:00* Test Item Value Reference Range Interpretation Comments Urine Bilirubin (test code = 1978-6) NEGATIVE NEGATIVE [facility] CenterUrine Iiwzg0803-18-44 18:00:00* Test Item Value Reference Range Interpretation Comments Urine Blood (test code = 26610-9) 1+ NEGATIVE H [facility] CenterUrine QGM6727-93-92 18:00:00* Test Item Value Reference Range Interpretation Comments Urine WBC (test code = 5821-4) 6-10 0-5 H [facility] CenterUrine SGY0799-91-34 18:00:00* Test Item Value Reference Range Interpretation Comments Urine RBC (test code = 63587-3) 0-5 0-5 [facility] CenterUrine Onjgnaka4919-02-52 18:00:00* Test Item Value Reference Range Interpretation Comments Urine Bacteria (test code = 32968-5) [facility] Epithelial Fhzrl1865-87-36 18:00:00 * Test Item Value Reference Range Interpretation Comments Urine Epithelial Cells (test code = 98428-7) RARE [facility] Jzvpl3290-36-28 18:00:00* Test Item Value Reference Range Interpretation Comments Urine Yeast (test code = 97208-5) FEW NONE [facility] Srafd0159-01-69 18:00:00* Test Item Value Reference Range Interpretation Comments Urine Yeast (test code = 09315-9) FEW NONE [facility] Vjpvr6646-58-06 18:00:00* Test Item Value Reference Range Interpretation Comments Urine Yeast (test code = 47180-8) FEW NONE [facility] Aacel2764-47-68 18:00:00* Test Item Value Reference Range Interpretation Comments Urine Yeast (test code = 86684-9) FEW NONE [facility] Dehqb7032-44-20 18:00:00* Test Item Value Reference Range Interpretation Comments Urine Yeast (test code = 87242-0) FEW NONE [facility] Reqkd8718-51-37 18:00:00* Test Item Value Reference Range Interpretation Comments Urine Yeast (test code = 26812-9) [facility]W [facility]Act[facility] Partial Thromboplast Time 2018-03-28 17:22:00* Test Item Value Reference Range Interpretation Comments Activated Partial Thromboplast Time (test code = 92158-6) 64.4 23.8-35.5 H [facility] CenterLactic Acid Zejkk8477-37-26 17:22:00* Test Item Value Reference Range Interpretation Comments Lactic Acid Level (test code = Lactic Acid Level) 15.4 4.5- 19.8 [facility] CenterActivated Partial Thromboplast Time 2018-03-28 17:22:00* Test Item Value Reference Range Interpretation Comments Activated Partial Thromboplast Time (test code = 92978-8) 64.4 23.8-35.5 H [facility] CenterCHES SINGLE (PORTABLE)2018-03-28 15:41:00 [facility] [address] [address] Patient Name: TONEY NAVA MR #: [id number] : 1940 Age/Sex: 78/M Req #: [id number] Adm Physician: Ordered by: SY WARNER MD Report #: [id number] Location: ER Room/Bed: Procedure: [id number] DX/CHEST SINGLE (PORTABLE) Exam Date: Exam Time: REPORT STATUS: Signed Examinati on: Single AP view of the chest. COMPARISON: 02/28/2018 INDICATION: Fev er DISCUSSION: Persistent left lower lobe and lingular airspace o pacity, possibly with superimposed pleural effusion. The right lung is clear. Postsurgical changes of the mediastinum. No acute osseous abnormality. IMPRESSION: Persistent left lower lobe and lingular airspace opacity, p ossibly with superimposed pleural effusion. This is partially attributable to left hemidiaphragmatic elevation as seen on CT chest 08/14/2016. Signed by : Dr. Ronald Savage M.D. on 03/28/2018 3:43 PM Dictated By: RONALD SAVAGE MD 42 Transcribed By: AANT on 03/28/181542 COPY TO: SY WARNER MD Magnesium Pfynd7503-36-61 05:29:00* Test Item Value Reference Range Interpretation Comments Magnesium Level (test code = 99453-7) 2.1 1.3-2.1 [facility] Ewftr5922-15-07 05:29:00* Test Item Value Reference Range Interpretation Comments Magnesium Level (test code = 51409-9) 2.1 1.3-2.1 [facility] CenterMagnesium Sgnuj8050-93-77 05:29:00* Test Item Value Reference Range Interpretation Comments Magnesium Level (test code = 04239-8) 2.1 1.3-2.1 [facility] CenterCHES SINGLE (PORTABLE)2018-02-28 06:43:00 [address] [address] Patient Name: TONEY NAVA MR #: [id number] : 1940 Age/Sex: 78/M Req #: [id number] Adm Physician: CARROLL LIMA MD Ordered by: DENIS GRANADOS MD Report #: [id number] [facility]: [facility] Room/Bed: [facility] Procedure: [id number] DX/CHEST SINGLE (PORTABLE) Exam Date: 02/28/18 Exam Time: 0500 REPORT STATUS: Signed EXAM: CHEST SINGLE (PORTABLE), AP 1 view INDICATION: Pneumonia COMPARISON: AP view of the chest February 24, 2018 FINDINGS: LINES/TUBES: None L UNGS: Persistent opacity in the left lung base. PLEURA: Indeterminate for effusion on the left. HEART AND MEDIASTINUM: Stable appearance. BONES AND SOFT TISSUES: No acute findings. IMPRESSION: No interval change. Signed by: Dr. Umer De Los Santos M.D. on 02/28/2018 6:44 AM Dicta ryne By: UMER DE LOS SANTOS MD 3 Transcribed By: ANAT on 02/28/18643 COPY TO: DENIS GRANADOS MD, [facility] Blood Wrjdjrc3314-87-93 08:03:00* Test Item Value Reference Range Interpretation Comments Blood Culture (test code = 600-7) Organism: STAPHYLOCOCCUS SP COAG NEG [facility] Azsjsfo2478-08-56 08:03:00* Test Item Value Reference Range Interpretation Comments Blood Culture (test code = 600-7) Organism: STAPHYLOCOCCUS SP COAG NEG [facility] Vsgdjos3542-32-69 08:03:00* Test Item Value Reference Range Interpretation Comments Blood Culture (test code = 600-7) Organism: STAPHYLOCOCCUS SP COAG NEG [facility] CenterCHES SINGLE (PORT[facility])2018-02-24 06:32:00 [address] [address] Patient Name: TONEY NAVA MR #: [id number] : 1940 Age/Sex: 77/M Req #: [id number] Adm Physician: CARROLL LIMA MD Ordered by: DENIS GRANADOS MD Report #: [id number] Location: [facility] Room/Bed: [address] [address] Procedure: [id number] DX/CHEST SINGLE (PORTABLE) Exam Date: 02/24/18 Exam Time: 0535 REPORT STATUS: Signed EXAM: CHEST SINGLE (PORTABLE), AP 1 view INDICATION: Pneumonia COMPARISON: AP view of the chest February 22, 2018 FINDINGS: LINES/TUBES: None L UNGS: Persistent indeterminate opacity in the left lung base. Persistent vascu lar congestion. PLEURA: Indeterminate for effusion on the left. HEART AND MEDIASTINUM: Stable enlargement of the cardiomediastinal silhouette. B ONES AND SOFT TISSUES: Partially visualized median sternotomy wires. IMPRE SSION: No interval change in appearance of the chest. Signed by: Dr Mirna De Los Santos M.D. on 02/24/2018 6:33 AM Dictated By: UMER DE LOS SANTOS MD 2 Transcribed By: ANAT on 02/24/18632 COPY TO: DENIS GRANADOS MD, [facility] Creatine Bxyqmc2706-33-40 05:41:00* Test Item Value Reference Range Interpretation Comments Creatine Kinase (test code = 2157-6) 470 30-200 H [facility] CenterCreatine Meuvtw0283-21-75 05:41:00* Test Item Value Reference Range Interpretation Comments Creatine Kinase (test code = 2157-6) 470 30-200 H [facility] CenterHemoglobin A1c Nkgdzng9625-74-32 06:43:00 * Test Item Value Reference Range Interpretation Comments Hemoglobin A1c Percent (test code = Hemoglobin A1c Percent) 12.4 4.0-7.0 H [facility] CenterArterial Blood lI0514-63-48 14:00:00* Test Item Value Reference Range Interpretation Comments Arterial Blood pH (test code = 2744-1) 7.37 7.31-7.41 [facility] CenterArterial Blood Partial Pressure CO2 2018-02-22 14:00:00* Test Item Value Reference Range Interpretation Comments Arterial Blood Partial Pressure CO2 (test code = 2018-11) 58 41-51 H [facility] CenterAr[facility] Partial Pressure O2 2018-02-22 14:00:00* Test Item Value Reference Range Interpretation Comments Arterial Blood Partial Pressure O2 (test code = 2018-11) 151 80-105 H [facility] CenterArterial Blood [id number] 14:00:00* Test Item Value Reference Range Interpretation Comments Arterial Blood HCO3 (test code = 1960-4) 34 23-28 H [facility] CenterAr[facility]ial Blood Base Dbeznw6189-68-01 14:00:00* Test Item Value Reference Range Interpretation Comments Arterial Blood Base Excess (test code = 1925-7) 8.0 -2-3 H [facility] Center[facility] Blood Oxygen Saturation 2018-02-22 14:00:00* Test Item Value Reference Range Interpretation Comments Arterial Blood Oxygen Saturation (test code = 2708-6) 99.0 95-98 H [facility] CenterFiO22018-10-30 14:00:00* Test Item Value Reference Range Interpretation Comments FiO2 (test code = FiO2) 60 BIPAP 18/8 RR 12DREW FROM LEFT RADIALVal [facility] Arterial Blood [id number] 14:00:00* Test Item Value Reference Range Interpretation Comments Arterial Blood pH (test code = 2744-1) 7.37 7.31-7.41 [facility] CenterAr[facility] Blood Partial Pressure CO2 2018-02-22 14:00:00* Test Item Value Reference Range Interpretation Comments Arterial Blood Partial Pressure CO2 (test code = 2019-8) 58 41-51 H [facility] CenterAr[facility]ial Blood Partial Pressure O2 2018-02-22 14:00:00* Test Item Value Reference Range Interpretation Comments Arterial Blood Partial Pressure O2 (test code = 2019-8) 151 80-105 H [facility] CenterAr[facility]ial Blood [id number] 14:00:00* Test Item Value Reference Range Interpretation Comments Arterial Blood HCO3 (test code = 1960-4) 34 23-28 H [facility] CenterAr[facility]ial Blood Base Wvzlsh5393-48-98 14:00:00* Test Item Value Reference Range Interpretation Comments Arterial Blood Base Excess (test code = 1925-7) 8.0 -2-3 H [facility] CenterAr[facility] Blood Oxygen Saturation 2018-02-22 14:00:00* Test Item Value Reference Range Interpretation Comments Arterial Blood Oxygen Saturation (test code = 2708-6) 99.0 95-98 H [facility] CenterFiO22018-10-30 14:00:00* Test Item Value Reference Range Interpretation Comments FiO2 (test code = FiO2) 60 BIPAP 18/8 RR 12DREW FROM LEFT [facility] Arterial Blood [id number] 14:00:00* Test Item Value Reference Range Interpretation Comments Arterial Blood pH (test code = 2744-1) 7.37 7.31-7.41 [facility] CenterAr[facility] Blood Partial Pressure CO2 2018-02-22 14:00:00* Test Item Value Reference Range Interpretation Comments Arterial Blood Partial Pressure CO2 (test code = 2018-) 58 41-51 H [facility] CenterAr[facility]ial Blood Partial Pressure O2 2018-02-22 14:00:00* Test Item Value Reference Range Interpretation Comments Arterial Blood Partial Pressure O2 (test code = 2018-8) 151 80-105 H [facility] CenterAr[facility]ial Blood [id number] 14:00:00* Test Item Value Reference Range Interpretation Comments Arterial Blood HCO3 (test code = 1960-4) 34 23-28 H [facility] CenterAr[facility]ial Blood Base Hzclyk2379-35-23 14:00:00* Test Item Value Reference Range Interpretation Comments Arterial Blood Base Excess (test code = 1925-7) 8.0 -2-3 H [facility] CenterAr[facility] Blood Oxygen Saturation 2018-02-22 14:00:00* Test Item Value Reference Range Interpretation Comments Arterial Blood Oxygen Saturation (test code = 2708-6) 99.0 95-98 H [facility] CenterFiO22018-10-30 14:00:00* Test Item Value Reference Range Interpretation Comments FiO2 (test code = FiO2) 60 BIPAP 18/8 RR 12DREW FROM LEFT [facility] Arterial Blood [id number] 14:00:00* Test Item Value Reference Range Interpretation Comments Arterial Blood pH (test code = 2744-1) 7.37 7.31-7.41 [facility] CenterAr[facility] Blood Partial Pressure CO2 2018-02-22 14:00:00* Test Item Value Reference Range Interpretation Comments Arterial Blood Partial Pressure CO2 (test code = 2019-8) 58 41-51 H [facility] CenterAr[facility]ial Blood Partial Pressure O2 2018-02-22 14:00:00* Test Item Value Reference Range Interpretation Comments Arterial Blood Partial Pressure O2 (test code = 2019-8) 151 80-105 H [facility] CenterAr[facility]ial Blood [id number] 14:00:00* Test Item Value Reference Range Interpretation Comments Arterial Blood HCO3 (test code = 1960-4) 34 23-28 H [facility] CenterAr[facility]ial Blood Base [id number] 14:00:00* Test Item Value Reference Range Interpretation Comments Arterial Blood Base Excess (test code = 1925-7) 8.0 -2-3 H [facility] CenterAr[facility] Blood Oxygen Saturation 2018-02-22 14:00:00* Test Item Value Reference Range Interpretation Comments Arterial Blood Oxygen Saturation (test code = 2708-6) 99.0 95-98 H [facility] CenterFiO22018-10-30 14:00:00* Test Item Value Reference Range Interpretation Comments FiO2 (test code = FiO2) 60 BIPAP 18/8 RR 12DREW FROM LEFT RADIALVal [facility] Arterial Blood [id number] 14:00:00* Test Item Value Reference Range Interpretation Comments Arterial Blood pH (test code = 2744-1) 7.37 7.31-7.41 [facility] CenterAr[facility]ial Blood Partial Pressure CO2 2018-02-22 14:00:00* Test Item Value Reference Range Interpretation Comments Arterial Blood Partial Pressure CO2 (test code = 2019-8) 58 41-51 H [facility] CenterAr[facility]ial Blood Partial Pressure O2 2018-02-22 14:00:00* Test Item Value Reference Range Interpretation Comments Arterial Blood Partial Pressure O2 (test code = 2019-8) 151 80-105 H [facility] CenterArterial Blood [id number] 14:00:00* Test Item Value Reference Range Interpretation Comments Arterial Blood HCO3 (test code = 1960-4) 34 23-28 H [facility] CenterArterial Blood Base [id number] 14:00:00* Test Item Value Reference Range Interpretation Comments Arterial Blood Base Excess (test code = 1925-7) 8.0 -2-3 H [facility] CenterAr[facility]ial Blood Oxygen Saturation 2018-02-22 14:00:00* Test Item Value Reference Range Interpretation Comments Arterial Blood Oxygen Saturation (test code = 2708-6) 99.0 95-98 H [facility] CenterFiO22018-10-30 14:00:00* Test Item Value Reference Range Interpretation Comments FiO2 (test code = FiO2) 60 BIPAP 18/8 RR 12DREW FROM LEFT [facility] Arterial Blood [id number] 14:00:00* Test Item Value Reference Range Interpretation Comments Arterial Blood pH (test code = 2744-1) 7.37 7.31-7.41 [facility] CenterAr[facility]ial Blood Partial Pressure CO2 2018-02-22 14:00:00* Test Item Value Reference Range Interpretation Comments Arterial Blood Partial Pressure CO2 (test code = 2018-8) 58 41-51 H [facility] CenterArterial Blood Partial Pressure O2 2018-02-22 14:00:00* Test Item Value Reference Range Interpretation Comments Arterial Blood Partial Pressure O2 (test code = 2018-8) 151 80-105 H [facility] CenterArterial Blood [id number] 14:00:00* Test Item Value Reference Range Interpretation Comments Arterial Blood HCO3 (test code = 1960-4) 34 23-28 H [facility] CenterArterial Blood Base [id number] 14:00:00* Test Item Value Reference Range Interpretation Comments Arterial Blood Base Excess (test code = 1925-7) 8.0 -2-3 H [facility] CenterArterial Blood Oxygen Saturation 2018-02-22 14:00:00* Test Item Value Reference Range Interpretation Comments Arterial Blood Oxygen Saturation (test code = 2708-6) 99.0 95-98 H [facility] CenterFiO22018-10-30 14:00:00* Test Item Value Reference Range Interpretation Comments FiO2 (test code = FiO2) 60 BIPAP 18/8 RR 12DREW FROM LEFT RADIALVal [facility] Creatine Kinase [id number] 09:42:00* Test Item Value Reference Range Interpretation Comments Creatine Kinase MB (test code = 61741-7) 4.70 0-5.0 [facility] CenterTroponin [id number] 09:42:00* Test Item Value Reference Range Interpretation Comments Troponin I (test code = HWV4522) 0.117 0-0.300 [facility] CenterCreatine Kinase [id number] 09:42:00* Test Item Value Reference Range Interpretation Comments Creatine Kinase MB (test code = 17423-5) 4.70 0-5.0 [facility] CenterTroponin [id number] 09:42:00* Test Item Value Reference Range Interpretation Comments Troponin I (test code = IXB8819) 0.117 0-0.300 [facility] CenterCHEST SINGLE (PORTABLE)2018-02-22 02:55:00 [place] [address] Patient Name: TONEY NAVA MR #: [id number] : 1940 Age/Sex: 77/M Req #: [id number] Adm Physician: Ordered by: TOM HERRERA MD Report #: [id number] Location: ER Room/Bed: Procedure: 1030- 0013 DX/CHEST SINGLE (PORTABLE) Exam Date: 02/22/18 Exam Time: 0210 REPORT STATUS: Sign ed EXAM: CHEST SINGLE (PORTABLE), AP 1 view INDICATION: Fever COMPARISON: AP view of the chest July 13, 2017 FINDINGS: LINES/TUBES: None KYLE GS: Persistent indeterminate opacity in the left lung base. PLEURA: Indete rminate for effusion on the left. Likely elevation of the left hemidiaphragm. HEART AND MEDIASTINUM: Stable appearance given rotation. Median sternotomy wires. BONES AND SOFT TISSUES: No acute findings. IMPRESSION: Sta ble appearance of the chest. Signed by: Dr. Umer De Los Santos M.D. o n 02/22/2018 2:56 AM Dictated By: UMER DE LOS SANTOS MD 5 Transcribed By: ANAT on 02/22/18255 COPY TO: TOM HERRERA MD Influenza Virus Types A,B Antigen 2018-02-22 02:14:00* Test Item Value Reference Range Interpretation Comments Influenza Virus Types A,B Antigen (test code = 41057-1) NEGATIVE NEGATIVE [facility], LIMITED/LOCALIZED NEDLNL-DY4264-11-02 13:48:00Reason for Exam:->lung noduleFINAL REPORT CT minimal. MEDICAL HISTORY: Lung nodule [...] therefore not amenable to percutaneous biopsy. Signed: Shayan Irene MDReport Verified Date/Time: 08/25 13:48:03 Reading Location: [address] Body Reading Room [facility] signed by: SHAYAN IRENE M.D. on 08/25/2017 01:48 PM PT/[id number] 11:46:00* Test Item Value Reference Range Interpretation Comments PROTIME (BEAKER) (test code = 759) 14.1 seconds 11.7-14.7 INR (BEAKER) (test code = 370) 1.1 <=5.9 PARTIAL THROMBOPLASTIN TIME (BEAKER) (test code = 760) 36.0 seconds 22.5-36.0 RECOMMENDED COUMADIN/WARFARIN INR THERAPY RANGESSTANDARD DOSE: 2.0 - 3.0 Inclu juanita: PROPHYLAXIS for venous thrombosis, systemic embolization; TREATMENT for adriana ous thrombosis and/or pulmonary embolus.HIGH RISK: Target INR is 2.5-3.5 for pat ients with mechanical heart valves.PLATELET [id number] 11:39:00* Test Item Value Reference Range Interpretation Comments PLATELET COUNT (BEAKER) (test code = 756) 182 K/CU MM 150-450 Blood Rrxttnq7541-47-33 13:32:00* Test Item Value Reference Range Interpretation Comments Blood Culture (test code = 01259977) NO GROWTH AFTER 72 HOURS [facility] CenterBedside Jvokclk5537-62-56 11:38:00* Test Item Value Reference Range Interpretation Comments Bedside Glucose (test code = 77360-0) 271 70-120 H Meter ID: [id number] Verde Regional Medical CenterProthrombin Time 2017-07-16 08:41:00* Test Item Value Reference Range Interpretation Comments Prothrombin Time (test code = 5902-2) 21.1 11.9-14.5 H [facility] CenterProthromb Time International Ratio 2017-07-16 08:41:00* Test Item Value Reference Range Interpretation Comments Prothromb Time International Ratio (test code = 6301-6) 1.97 Oral Anticoagulant Therapy INR Values:1. Low Intensity Therapy 1.5 - 2.02 . Moderate Intensity Therapy 2.0 - 3.03. High Intensity Therapy(1) 2.5 - 3. 54. High Intensity Therapy(2) 3.0 - 4.05. Panic Value INR > 5.0 [facility] CenterBlood Eajorct8241-11-09 12:52:00* Test Item Value Reference Range Interpretation Comments Blood Culture (test code = 600-7) Organism: STAPHYLOCOCCUS AURICULA RIS [facility] Fallsodium Buypc3971-85-93 07:36:00* Test Item Value Reference Range Interpretation Comments Sodium Level (test code = 2951-2) 140 136-145 [facility] CenterPotassium Yheid3675-85-13 07:36:00* Test Item Value Reference Range Interpretation Comments Potassium Level (test code = 2823-3) 3.6 3.5-5.1 [facility] CenterChloride Yjswb8774-59-05 07:36:00* Test Item Value Reference Range Interpretation Comments Chloride Level (test code = 2075-0) 91 98-107 L [facility] CenterCarbon Dioxide Wspwp1807-48-44 07:36:00* Test Item Value Reference Range Interpretation Comments Carbon Dioxide Level (test code = 2028-9) 39 22-29 H [facility] CenterAnion Cvz0709-08-19 07:36:00* Test Item Value Reference Range Interpretation Comments Anion Gap (test code = 72077-6) 13.6 8-16 [facility] CenterBlood Urea Fgglhxkn0320-26-01 07:36:00* Test Item Value Reference Range Interpretation Comments Blood Urea Nitrogen (test code = 3094-0) 52 7-26 H [facility] CenterCreatinine2018-03-22 07:36:00* Test Item Value Reference Range Interpretation Comments Creatinine (test code = 2160-0) 1.79 0.72-1.25 H [facility] CenterBUN/Creatinine Uluun9430-12-88 07:36:00* Test Item Value Reference Range Interpretation Comments BUN/Creatinine Ratio (test code = 3097-3) 29 6-25 H [facility] CenterEstimat Glomerular Filtration Rate 2017-07-15 07:36:00* Test Item Value Reference Range Interpretation Comments Estimat Glomerular Filtration Rate (test code = 35196-2) 37 >60 L Ranges were taken from the National Kidney Disease Education Program and the [facility] [employer] literature.Reference ranges:60 or greater: Qonool02-75 ( for 3 consecutive months): Chronic kidney disease 15 or less: Kidney failureVal Verde Regional Medical CenterGlucose Kafts2241-90-50 07:36:00* Test Item Value Reference Range Interpretation Comments Glucose Level (test code = EQW6085) 110 74-118 [facility] CenterCalcium Lmuub5604-09-67 07:36:00* Test Item Value Reference Range Interpretation Comments Calcium Level (test code = 98069-1) 8.6 8.4-10.2 [facility] CenterMagnesium Ykbnf4454-35-76 07:36:00* Test Item Value Reference Range Interpretation Comments Magnesium Level (test code = 22650-2) 1.9 1.3-2.1 [facility] CenterCreatine Xvejzt4885-29-24 07:36:00* Test Item Value Reference Range Interpretation Comments Creatine Kinase (test code = 2157-6) 433 30-200 H [facility] CenterWhite Blood Cdiuk0173-45-82 06:56:00* Test Item Value Reference Range Interpretation Comments White Blood Count (test code = 6690-2) 9.00 4.8-10.8 [facility] CenterRed Blood Kqxhs6148-25-38 06:56:00* Test Item Value Reference Range Interpretation Comments Red Blood Count (test code = 789-8) 4.61 4.3-5.7 [facility] CenterHemoglobin2018-03-21 06:56:00* Test Item Value Reference Range Interpretation Comments Hemoglobin (test code = 70614-3) 12.3 14.0-18.0 L [facility] CenterHematocrit2018-03-21 06:56:00* Test Item Value Reference Range Interpretation Comments Hematocrit (test code = 4544-3) 39.1 38.2-49.6 [facility] CenterMean Corpuscular Ijdwug0011-42-04 06:56:00* Test Item Value Reference Range Interpretation Comments Mean Corpuscular Volume (test code = 787-2) 84.8 81-99 [facility] CenterMean Corpuscular Hnbammuaqs3440-47-01 06:56:00* Test Item Value Reference Range Interpretation Comments Mean Corpuscular Hemoglobin (test code = 785-6) 26.7 28-32 L [facility] CenterMean Corpuscular Hemoglobin Concent 2017-07-14 06:56:00* Test Item Value Reference Range Interpretation Comments Mean Corpuscular Hemoglobin Concent (test code = 786-4) 31.5 31-35 [facility] CenterRed Cell Distribution Tqmjd6767-43-59 06:56:00* Test Item Value Reference Range Interpretation Comments Red Cell Distribution Width (test code = 14403-4) 15.1 11.7 -14.4 H [facility] CenterPlatelet Clfft4737-31-82 06:56:00* Test Item Value Reference Range Interpretation Comments Platelet Count (test code = 777-3) 130 140-360 L [facility] CenterNeutrophils (%) (Auto)2017-07-14 06:56:00 * Test Item Value Reference Range Interpretation Comments Neutrophils (%) (Auto) (test code = 79671-2) 65.2 38.7-80.0 [facility] CenterLymphocytes (%) (Auto)2017-07-14 06:56:00 * Test Item Value Reference Range Interpretation Comments Lymphocytes (%) (Auto) (test code = 736-9) 17.4 18.0-39.1 L [facility] CenterMonocytes (%) (Auto)2017-07-14 06:56:00* Test Item Value Reference Range Interpretation Comments Monocytes (%) (Auto) (test code = 5905-5) 11.9 4.4-11.3 H [facility] CenterEosinophils (%) (Auto)2017-07-14 06:56:00 * Test Item Value Reference Range Interpretation Comments Eosinophils (%) (Auto) (test code = 713-8) 4.8 0.0-6.0 [facility] CenterBasophils (%) (Auto)2017-07-14 06:56:00* Test Item Value Reference Range Interpretation Comments Basophils (%) (Auto) (test code = 706-2) 0.3 0.0-1.0 [facility] CenterIM GRANULOCYTES %2017-07-14 06:56:00* Test Item Value Reference Range Interpretation Comments IM GRANULOCYTES % (test code = IM GRANULOCYTES %) 0.4 0.0- 1.0 [facility] CenterNeutrophils # (Auto)2017-07-14 06:56:00* Test Item Value Reference Range Interpretation Comments Neutrophils # (Auto) (test code = 751-8) 5.9 2.1-6.9 [facility] CenterLymphocytes # (Auto)2017-07-14 06:56:00* Test Item Value Reference Range Interpretation Comments Lymphocytes # (Auto) (test code = 44659-4) 1.6 1.0-3.2 [facility] CenterMonocytes # (Auto)2017-07-14 06:56:00* Test Item Value Reference Range Interpretation Comments Monocytes # (Auto) (test code = 742-7) 1.1 0.2-0.8 H [facility] CenterEosinophils # (Auto)2017-07-14 06:56:00* Test Item Value Reference Range Interpretation Comments Eosinophils # (Auto) (test code = 711-2) 0.4 0.0-0.4 [facility] CenterBasophils # (Auto)2017-07-14 06:56:00* Test Item Value Reference Range Interpretation Comments Basophils # (Auto) (test code = 704-7) 0.0 0.0-0.1 [facility] CenterAbsolute Immature Granulocyte (auto 2017-07-14 06:56:00* Test Item Value Reference Range Interpretation Comments Absolute Immature Granulocyte (auto (jeyson t code = Absolute Immature Granulocyte (auto) 0.04 0-0.1 [facility] CenterTriglycerides Qexcn2008-14-01 07:14:00* Test Item Value Reference Range Interpretation Comments Triglycerides Level (test code = 2571-8) 156 0-149 H [facility] CenterCholesterol Wkhcf8480-38-09 07:14:00* Test Item Value Reference Range Interpretation Comments Cholesterol Level (test code = 2093-3) 119 0-199 Less than 200 mg/dL Low Cdsq714 - 239 mg/dL Borderline Olln292 m g/dl and greater High Risk [facility] CenterLDL Uhtzclojtni0916-82-26 07:14:00* Test Item Value Reference Range Interpretation Comments LDL Cholesterol (test code = 2089-1) 60 60-130 [facility] CenterHDL Joqmzbscksy6963-92-72 07:14:00* Test Item Value Reference Range Interpretation Comments HDL Cholesterol (test code = 2085-9) 28 40-60 L [facility] CenterCholesterol/HDL Zatvo2764-05-70 07:14:00 * Test Item Value Reference Range Interpretation Comments Cholesterol/HDL Ratio (test code = 9830-1) 4.3 3.9-4.7 [facility] CenterHemoglobin A1c Fjafrmg7403-82-22 07:11:00 * Test Item Value Reference Range Interpretation Comments Hemoglobin A1c Percent (test code = Hemoglobin A1c Percent) 10.8 4.0-7.0 H [facility] CenterDifferential Total Cells Counted 2017-07-11 14:04:00* Test Item Value Reference Range Interpretation Comments Differential Total Cells Counted (test code = Braeden tial Total Cells Counted) 100 [facility] CenterNeutrophils % (Manual)2017-07-11 14:04:00 * Test Item Value Reference Range Interpretation Comments Neutrophils % (Manual) (test code = 23639-4) 93 40-74 H [facility] CenterBand Neutrophils %2017-07-11 14:04:00* Test Item Value Reference Range Interpretation Comments Band Neutrophils % (test code = 764-1) 1 [facility] CenterLymphocytes % (Manual)2017-07-11 14:04:00 * Test Item Value Reference Range Interpretation Comments Lymphocytes % (Manual) (test code = 737-7) 4 19-48 L [facility] CenterMonocytes % (Manual)2017-07-11 14:04:00* Test Item Value Reference Range Interpretation Comments Monocytes % (Manual) (test code = 744-3) 2 3.4-9.0 L [facility] CenterPlatelet Rnhjpseo5622-04-30 14:04:00* Test Item Value Reference Range Interpretation Comments Platelet Estimate (test code = 35449-8) ADEQUATE [facility] CenterPlatelet Morphology Hsentri5154-76-79 14:04:00* Test Item Value Reference Range Interpretation Comments Platelet Morphology Comment (test code = 53609-4) NORMAL [facility] CenterRed Cell Morphology Qfvamsu9875-21-13 14:04:00* Test Item Value Reference Range Interpretation Comments Red Cell Morphology Comment (test code = 6742-1) NORMAL [facility] CenterDifferential Total Cells Counted 2017-07-11 14:04:00* Test Item Value Reference Range Interpretation Comments Differential Total Cells Counted (test code = Differradha tial Total Cells Counted) 100 [facility] CenterNeutrophils % (Manual)2017-07-11 14:04:00 * Test Item Value Reference Range Interpretation Comments Neutrophils % (Manual) (test code = 11436-9) 93 40-74 H [facility] CenterBand Neutrophils %2017-07-11 14:04:00* Test Item Value Reference Range Interpretation Comments Band Neutrophils % (test code = 764-1) 1 [facility] CenterLymphocytes % (Manual)2017-07-11 14:04:00 * Test Item Value Reference Range Interpretation Comments Lymphocytes % (Manual) (test code = 737-7) 4 19-48 L [facility] CenterMonocytes % (Manual)2017-07-11 14:04:00* Test Item Value Reference Range Interpretation Comments Monocytes % (Manual) (test code = 744-3) 2 3.4-9.0 L [facility] CenterPlatelet Gnmvfjrs4564-78-49 14:04:00* Test Item Value Reference Range Interpretation Comments Platelet Estimate (test code = 02588-3) ADEQUATE [facility] CenterPlatelet Morphology Nezshrh2727-80-73 14:04:00* Test Item Value Reference Range Interpretation Comments Platelet Morphology Comment (test code = 55680-0) NORMAL [facility] CenterRed Cell Morphology Xnmoqrf4898-21-70 14:04:00* Test Item Value Reference Range Interpretation Comments Red Cell Morphology Comment (test code = 6742-1) NORMAL [facility] CenterDifferential Total Cells Counted 2017-07-11 14:04:00* Test Item Value Reference Range Interpretation Comments Differential Total Cells Counted (test code = Braeden pabonl Total Cells Counted) 100 [facility] CenterNeutrophils % (Manual)2017-07-11 14:04:00 * Test Item Value Reference Range Interpretation Comments Neutrophils % (Manual) (test code = 41457-8) 93 40-74 H [facility] CenterBand Neutrophils %2017-07-11 14:04:00* Test Item Value Reference Range Interpretation Comments Band Neutrophils % (test code = 764-1) 1 [facility] CenterLymphocytes % (Manual)2017-07-11 14:04:00 * Test Item Value Reference Range Interpretation Comments Lymphocytes % (Manual) (test code = 737-7) 4 19-48 L [facility] CenterMonocytes % (Manual)2017-07-11 14:04:00* Test Item Value Reference Range Interpretation Comments Monocytes % (Manual) (test code = 744-3) 2 3.4-9.0 L [facility] CenterPlatelet Emmjxfoi1859-36-40 14:04:00* Test Item Value Reference Range Interpretation Comments Platelet Estimate (test code = 45183-7) ADEQUATE [facility] CenterPlatelet Morphology Imhmzxs4928-86-12 14:04:00* Test Item Value Reference Range Interpretation Comments Platelet Morphology Comment (test code = 44033-5) NORMAL [facility] CenterRed Cell Morphology Cxydsyg8808-94-20 14:04:00* Test Item Value Reference Range Interpretation Comments Red Cell Morphology Comment (test code = 6742-1) NORMAL [facility] CenterActivated Partial Thromboplast Time 2017-07-11 10:09:00* Test Item Value Reference Range Interpretation Comments Activated Partial Thromboplast Time (test code = 92710-3) 58.7 23.8-35.5 H [facility] CenterLactic Acid Qytlj0731-93-09 10:07:00* Test Item Value Reference Range Interpretation Comments Lactic Acid Level (test code = Lactic Acid Level) 33.0 4.5- 19.8 H [facility] CenterCreatine Kinase EU4474-09-63 10:07:00* Test Item Value Reference Range Interpretation Comments Creatine Kinase MB (test code = 42529-1) 16.90 0-5.0 H [facility] CenterTroponin V1188-80-00 10:07:00* Test Item Value Reference Range Interpretation Comments Troponin I (test code = MJQ5610) 0.024 0-0.300 [facility] CenterPhosphorus Odygc2167-46-00 10:06:00* Test Item Value Reference Range Interpretation Comments Phosphorus Level (test code = MIJ8642) 3.5 2.3-4.7 [facility] CenterTotal Fchlzuiym0166-88-30 10:06:00* Test Item Value Reference Range Interpretation Comments Total Bilirubin (test code = 1975-2) 0.5 0.2-1.2 [facility] CenterAspartate Amino Transf (AST/SGOT) 2017-07-11 10:06:00* Test Item Value Reference Range Interpretation Comments Aspartate Amino Transf (AST/SGOT) (test code = Aspartate Amino Transf (AST/SGOT)) 49 5-34 H [facility] CenterAlanine Aminotransferase (ALT/SGPT) 2017-07-11 10:06:00* Test Item Value Reference Range Interpretation Comments Alanine Aminotransferase (ALT/SGPT) (test code = 1742-6) 31 0-55 [facility] CenterTotal Kltffug2594-82-74 10:06:00* Test Item Value Reference Range Interpretation Comments Total Protein (test code = 2885-2) 7.3 6.5-8.1 [facility] CenterAlbumin2018-03-18 10:06:00* Test Item Value Reference Range Interpretation Comments Albumin (test code = 1751-7) 3.2 3.5-5.0 L [facility] CenterGlobulin2018-03-18 10:06:00* Test Item Value Reference Range Interpretation Comments Globulin (test code = 23680-4) 4.1 2.3-3.5 H [facility] CenterAlbumin/Globulin Cwomz3706-74-36 10:06:00 * Test Item Value Reference Range Interpretation Comments Albumin/Globulin Ratio (test code = 1759-0) 0.8 0.8-2.0 [facility] CenterAlkaline Cmehtnbcpar2383-67-86 10:06:00* Test Item Value Reference Range Interpretation Comments Alkaline Phosphatase (test code = 6768-6) 76 40-150 [facility] CenterPhosphorus Krsok2011-29-48 10:06:00* Test Item Value Reference Range Interpretation Comments Phosphorus Level (test code = GER0978) 3.5 2.3-4.7 [facility] CenterPhosphorus Wcuvp7927-17-48 10:06:00* Test Item Value Reference Range Interpretation Comments Phosphorus Level (test code = AIR2800) 3.5 2.3-4.7 [facility] CenterArterial Blood uD3614-48-79 14:02:00* Test Item Value Reference Range Interpretation Comments Arterial Blood pH (test code = 2744-1) 7.41 7.31-7.41 [facility] CenterArterial Blood Partial Pressure CO2 2017-07-10 14:02:00* Test Item Value Reference Range Interpretation Comments Arterial Blood Partial Pressure CO2 (test code = 2018-8) 57 41-51 H [facility] CenterArterial Blood Partial Pressure O2 2017-07-10 14:02:00* Test Item Value Reference Range Interpretation Comments Arterial Blood Partial Pressure O2 (test code = 2019-8) 96 80-105 [facility] CenterArterial Blood EXE22922-41-77 14:02:00* Test Item Value Reference Range Interpretation Comments Arterial Blood HCO3 (test code = 1960-4) 36 23-28 H [facility] CenterArterial Blood Base Ngpzkn8186-34-30 14:02:00* Test Item Value Reference Range Interpretation Comments Arterial Blood Base Excess (test code = 1925-7) 12.0 -2-3 H [facility] CenterArterial Blood Oxygen Saturation 2017-07-10 14:02:00* Test Item Value Reference Range Interpretation Comments Arterial Blood Oxygen Saturation (test code = 2708-6) 97.0 95-98 [facility] CenterUrine PLG8538-86-58 09:58:00* Test Item Value Reference Range Interpretation Comments Urine WBC (test code = 5821-4) 0-5 0-5 [facility] CenterU[facility] FIJ2696-93-28 09:58:00* Test Item Value Reference Range Interpretation Comments Urine RBC (test code = 09257-0) 6-10 0-5 H [facility] CenterUrine Hreupihv7607-95-22 09:58:00* Test Item Value Reference Range Interpretation Comments Urine Bacteria (test code = 25102-3) FEW NONE [facility] CenterUrine Epithelial Lwail3501-47-17 09:58:00 * Test Item Value Reference Range Interpretation Comments Urine Epithelial Cells (test code = 58515-2) FEW NONE [facility] CenterUrine Qasku3720-34-29 09:55:00* Test Item Value Reference Range Interpretation Comments Urine Color (test code = 5778-6) YELLOW YELLOW [facility] CenterU[facility] Jpmsrld6286-58-79 09:55:00* Test Item Value Reference Range Interpretation Comments Urine Clarity (test code = 45053-4) HAZY CLEAR [facility] CenterUrine Specific Cazncvm4193-94-55 09:55:00 * Test Item Value Reference Range Interpretation Comments Urine Specific [place] (test code = 5811-5) 1.010 1.010-1.02 5 [facility] CenterUrine yZ8534-98-76 09:55:00* Test Item Value Reference Range Interpretation Comments Urine pH (test code = 39783-4) 7 5-7 [facility] CenterU[facility] Leukocyte Ugdfwzmr4601-73-71 09:55:00* Test Item Value Reference Range Interpretation Comments Urine Leukocyte Esterase (test code = 5799-2) NEGATIVE NEGATIVE [facility] CenterU[facility] Lnwnvnz1383-38-32 09:55:00* Test Item Value Reference Range Interpretation Comments Urine Nitrite (test code = 99047-2) NEGATIVE NEGATIVE [facility] CenterUrine Hphlabu0289-86-35 09:55:00* Test Item Value Reference Range Interpretation Comments Urine Protein (test code = 5804-0) 1+ NEGATIVE H [facility] CenterUrine Glucose (UA)2017-07-10 09:55:00* Test Item Value Reference Range Interpretation Comments Urine Glucose (UA) (test code = 2349-9) 2+ NEGATIVE H [facility] CenterUrine Hyhghdb4851-32-01 09:55:00* Test Item Value Reference Range Interpretation Comments Urine Ketones (test code = 12140-0) NEGATIVE NEGATIVE [facility] CenterU[facility] Cjdnpwvwimsn9644-44-68 09:55:00* Test Item Value Reference Range Interpretation Comments Urine Urobilinogen (test code = 88154-8) 1 0.2-1 [facility] CenterU[facility] Mywrbdjny2078-75-97 09:55:00* Test Item Value Reference Range Interpretation Comments Urine Bilirubin (test code = 1978-6) NEGATIVE NEGATIVE [facility] CenterU[facility] Uyisd1357-62-05 09:55:00* Test Item Value Reference Range Interpretation Comments Urine Blood (test code = 44193-0) 2+ NEGATIVE H [facility] CenterThyroid Stimulating Hormone (TSH) 2017-07-10 09:09:00* Test Item Value Reference Range Interpretation Comments Thyroid Stimulating Hormone (TSH) (test code = 89751-2) 1.793 0.350-4.940 [facility] CenterB-Type Natriuretic Wxittdm3493-06-46 08:58:00* Test Item Value Reference Range Interpretation Comments B-Type Natriuretic Peptide (test code = 33485-8) 42.8 0-100 [facility] CenterB-Type Natriuretic Ediqtwc6972-11-62 08:58:00* Test Item Value Reference Range Interpretation Comments B-Type Natriuretic Peptide (test code = 64262-0) 42.8 0-100 [facility] CenterB-Type Natriuretic Wjfvhed1442-36-14 08:58:00* Test Item Value Reference Range Interpretation Comments B-Type Natriuretic Peptide (test code = 36617-7) 42.8 0-100 [facility] CenterLipase2018-03-17 08:51:00* Test Item Value Reference Range Interpretation Comments Lipase (test code = 3040-3) 61 8-78 [facility] CenterLipase2018-03-17 08:51:00* Test Item Value Reference Range Interpretation Comments Lipase (test code = 3040-3) 61 8-78 [facility] CenterLipase2018-03-17 08:51:00* Test Item Value Reference Range Interpretation Comments Lipase (test code = 3040-3) 61 8-78 [facility] CenterCHE[facility]INGLE ([facility]) [place] [address] Patient Name: TONEY NAVA MR #: [id number] : 1940 Age/Sex: 77/M Req #: [id number] Adm Physician: CARROLL LIMA MD Ordered by: DENIS GRANADOS MD Report #: [id number] Loc ation: MED/SURG2 Room/Bed: [facility] Procedure: 7410-6743 DX/CHEST SINGLE (PORTABLE) Exam Date: 07/13/17 Exam Time: 0610 REPORT STATUS: Signed EXAM: CHEST SINGLE (PORTABLE), AP 1 v iew INDICATION: Congestive heart failure COMPARISON: AP view of the chest [facility] 2017 FINDINGS: LINES/TUBES: None LUNGS: Indeterminate opacit [...] TO: DENIS GRANADOS MD CHEST SINGLE (PORTABLE) [place] [address] Patient Name: TONEY NAVA MR #: [id number] : 1940 Age/Sex: 77/M Req #: [id number] Adm Physician: CARROLL LIMA MD Ordered by: DENIS GRANADOS MD Report #: [id number] Location: MED/SURG2 Room/Bed: [facility] Procedure: [id number] DX/CHEST SINGLE (PORTABLE) Exam Date: 07/12/17 Exam Time: 05 REPORT STATUS: Signed CHEST SINGLE (PORTABLE), 07/12/2017 5: 00 AM Technique: CHEST SINGLE (PORTABLE) Comparison: 07/11/2017 Clinical history: CHF Findings: See Impression Impression: Limited by body habitus and portable technique and motion. 1. Enlarged visualized cardiomedia stinal contours poststernotomy, accentuated by technique. 2. Elevated left h emidiaphragm with overlying opacity, favor atelectasis. Signed by: Dr Bernardino Knowles MD on 07/12/2017 6:22 AM Dictated By: BERNARDINO KNOWLES MD Electr onically Signed By: BERNARDINO KNOWLES MD on 07/12/17621 Transcribed By: ANAT on 07/12/17621 COPY TO: DENIS GRANADOS MD CHEST SINGLE (PORTABLE) [place] [address] Patient Name: TONEY NAVA MR #: [id number] : 1940 Age/Sex: 77/M Req #: [id number] Adm Physician: CARROLL LIMA MD Ordered by: CARROLL LIMA MD Report #: [id number] Location: [facility]/SURG Room/Bed: [facility] Procedure: 8786-8018 D X/CHEST SINGLE (PORTABLE) Exam Date: 07/11/17 [...] decreased from prior exam. Signed by: Dr. Bryn Yeh MD on 018 11:42 AM Dictated By: BRYN YEH MD 1142 Transcribed By: ANAT on 07/11/17 1142 C OPY TO: CARROLL LIMA MD CHEST SINGLE (PORTABLE) [place] [address] Patient Name: TONEY NAVA MR #: [id number] : 1940 Age/Sex: 77/M Req #: [id number] Adm Physician: CARROLL LIMA MD Ordered by: FADI CANALES MD, MD Report #: [id number] Location: [facility] Room/Bed: [place] [address] Procedure: 0317-00 24 DX/CHEST SINGLE (PORTABLE) Exam Date: 07/10/17 Ex am Time: 919 REPORT STATUS: Signed EXAMINATION: CHEST SINGLE (PORTABL [...] Brianna KHALIL on 07/10/17 1003 COPY TO: FADI CANALES VENOUS DUPLEX LWR B/L [place] [address] Patient Name : TONEY NAVA MR #: [id number] : 1940 Age/Sex: 77/M Adm Physician : CARRLOL LIMA MD Admit Date : 07/10/17 Location : MED/SURG2 Room/Bed : [facility] REPORT: Cardiology Repo rt DATE OF STUDY: July 10, [address] Fadi toribio. DOPPLER SCAN OF LOWER EXTREMITY VEINS [...] identified bilaterally. 3. Subopti mal study. Job#: [id number] EV cc: FADI CANALES MD Signature Date Dicta ryne By: SOBIA MORRELL MD Transcribed By: EDS on 07/11/17 <Electronically signed by SOBIA MORRELL MD><<Signature on File>>07/12/17 0943 COPY TO:
[2019-12-26 11:45] LABS: ABG HCO3 33 mmol/L (22-26); ABG PCO2 53 mmHg (35-45); ABG PO2 92 mmHg (80-105); ABG TCO2 34
--- NOTE | 2019-12-26 11:54 | NUR ---
4 attempts at iv;lab called to draw the pt. pt informed pf need for picc line.
--- NOTE | 2019-12-26 11:54 | Diagnostic Imaging Report ---
TECHNIQUE: Frontal view of the chest. INDICATION: ^SOB, CHF? ^[id number] ^1130 COMPARISON: 02/04/2019 DISCUSSION: Limited evaluation due to portable technique. Lines and hardware: Midline sternotomy changes are stable. Linear calcification projecting over the left infrahilar region is stable. Heart and mediastinum: Stable. Lungs and pleura: Similar appearance of left basilar opacification with blunting of the left costophrenic angle. Right lung is clear. Negative for pneumothorax. Soft tissues and bones: No acute abnormality. IMPRESSION: Similar x-ray dated 02/04/2019 there is a left basilar opacification which could represent any combination of consolidation, effusion and atelectasis. Signed by: Robles Almaraz MD on 12/26/2019 11:51 AM
--- NOTE | 2019-12-26 12:14 | NUR ---
LAB DRAW UNSUCCESSFUL. PICC LINE CONSENT SIGNED BY PT AND PALCED ON THE PT'S CLIPBOARD.
--- NOTE | 2019-12-26 12:42 | NUR ---
labs drawn by gifty george rn and sent to the lab
[2019-12-26 12:51] LABS: BILIRUBIN,URINE NEGATIVE (NEGATIVE); CLARITY,URINE CLEAR (CLEAR); COLOR,URINE YELLOW (YELLOW); KETONES,URINE NEGATIVE (NEGATIVE); LEUKOCYTE ESTERASE ,URINE NEGATIVE (NEGATIVE); MUCUS,URINE FEW (RARE); NITRITE,URINE NEGATIVE (NEGATIVE); PROTEIN,URINE DIPSTICK >=300 (NEGATIVE); URINE UROBILINOGEN 0.2 mg/dL (0.2 - 1); WBC,URINE (MAN) 0-5 /HPF (0-5)
[2019-12-26 12:56] LABS: BASOPHILS % 0.4 % (0.0-1.0); EOSINOPHILS # (AUTO) 0.3 (0.0-0.4); EOSINOPHILS % 3.5 % (0.0-6.0); HEMATOCRIT 35.1 % (38.2-49.6); HEMOGLOBIN 10.9 g/dL (14.0-18.0); LYMPHOCYTES # (AUTO) 1.1 (1.0-3.2); LYMPHOCYTES % 12.4 % (18.0-39.1); MEAN CORPUSCULAR HEMOGLOBIN 26.8 pg (28-32); MEAN CORPUSCULAR HGB CONC 31.1 g/dL (31-35); MEAN CORPUSCULAR VOLUME 86.2 fL (81-99); MONOCYTES # (AUTO) 0.7 (0.2-0.8); MONOCYTES % 8.6 % (4.4-11.3); NEUTROPHILS # (AUTO) 6.4 (2.1-6.9); NEUTROPHILS % 74.5 % (38.7-80.0); PLATELET COUNT 106 x10e3/uL (140-360); RED BLOOD COUNT 4.07 x10e6/uL (4.3-5.7); RED CELL DISTRIBUTION WIDTH 14.8 % (11.7-14.4)
[2019-12-26 13:06] LABS: INR 1.59; PROTHROMBIN TIME 19.9 seconds (11.9-14.5)
[2019-12-26 13:07] LABS: PARTIAL THROMBOPLASTIN TIME 46.1 seconds (23.8-35.5)
--- NOTE | 2019-12-26 13:11 | NUR ---
r.t called for pt
[2019-12-26 13:14] LABS: ANION GAP 17.3 mmol/L (8-16); CREATININE, SERUM 1.74 mg/dL (0.72-1.25); MAGNESIUM 1.8 MG/DL (1.3-2.1); POTASSIUM 4.3 mmol/L (3.5-5.1)
--- NOTE | 2019-12-26 13:17 | NUR ---
radiology called for picc line
[2019-12-26] MEDS ORDERED: FUROSEMIDE INJ 10 MG/ML 4 ML VIAL IV ONE (13:30)
[2019-12-26] MEDS ORDERED: ALBUTEROL/IPRATROPIUM 3 ML NEB NEB PRN (13:30)
[2019-12-26 13:38] LABS: ALBUMIN 3.9 g/dL (3.5-5.0); ALBUMIN/GLOBULIN RATIO 1.3 (0.8-2.0)
[2019-12-26] MEDS ORDERED: DEXTROSE 50% SYRINGE 50 ML IV PRN (13:45)
--- OUTSIDE RECORDS SUMMARY | 2019-12-26 13:53 | XMS REPORT | Clinical Summary ---
Author Author JAYASHREE [facility] Organization [facility] Address Unknown Phone Unavailable Care Team Providers Care Casino Gaming Inspector Name Role Phone Shahab Chino MD PCP [...] stent and 30-40% distal RCA lesion. [facility] 06/2014 at [facility]. 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 Moeller, and she reported the followin [...] Area Manufactur er 05/15/2019 08.501.001.20S / / [id number] Sternal Zipfix,With Needle Sterile Cardiovasc N/A: Sternu m SYNTHES Pack Of 20 - [id number] [employer] Implanted: Qty: 1 on 07/18/2014 by Bertram Virk MD 05/15/2019.501.001.20S / / [id number] Sternal Zipfix,With Needle Sterile Cardiovasc N/A: Sternu m SYNTHES Pack Of 20 - [id number] [employer] Implanted: Qty: 1 on 07/18/2014 by Bertram Virk MD Results Not on fileafter 12/25/2018 Insurance Payer Benefit Subscriber ID Type Phone Address Plan / Group [employer] TEX[employer] xxxxxxxxx [facility] Cont[facility] Advance Directives For more information, please contact: [facility] [address] [place] [id number] Date Inactivated Comments Code Status Date [...]
--- OUTSIDE RECORDS SUMMARY | 2019-12-26 13:55 | XMS REPORT | Continuity of Care Document ---
Author Author [facility] t Organization [facility] Address 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 PCP Jae SUAREZ Attphys Unavailable CLARENCE, Jae YICHING Attphys Unavailable ROSARIO, S RICHARD Attphys Unavailable DARWIN, Kathy BARRIOS Attphys Unavailable KEVIN NAYLOR Attphys Unavailable KISHORE, SHAYAN Attphys Unavailable CLARENCE, Jae YICHING Admphys Unavailable DARWIN, Kathy BARRIOS Admphys Unavailable NAYLOR KEVIN Admphys Unavailable Payers Payer Name Policy Type Policy Number Effective Date Expiration Date S joseph Dom[employer] Plus [id number] 2018 00:00:00 [facility] [employer] [place] [employer] [facility] [id number] 2018 00:00:00 [facility] Problems Condition Name Condition Details Condition Category Status Onset Date Resolution Date Last Treatment Date Treating Clinician Comments Source Cellulitis and abscess of lower extremity Abscess or cellulitis of leg Problem Active 2015-11-12 00:00:00 [facility] Diabetes mellitus Diabetes Problem Active 2015-11-12 00:00:00 [facility] Fever Fever Problem Active 2015-11-12 00:00:00 [facility] Fever with chills Fever and chills Problem Active 2015-11-12 00:00:00 [facility] 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 [facility] 01/2013 showed occluded circumflex and OM1 with prograde collaterals. The right coronary artery showed a slight ostial lesion and the proximal RCA stent and 30- 40% distal RCA lesion. [facility] 06/2014 at [facility]. Cath film reviewed by his electric motor mechanic, Dr. Moeller, and she reported the following findings: LM 60% stenosis, RI 90%, LCx occluded, RCA distal 70%. [facility] Diabetes Diabetes Disease Active 2013-02-01 00:00:00 [facility] Mixed hyperlipidemia Mixed hyperlipidemia Disease Active 00:00:00 [facility] Benign essential hypertension Benign essential hypertension Disease Active 2013-02-01 00:00:00 [facility] Morbid obesity Morbid obesity Disease Active 2013-02-01 00:00:00 [facility] S/P coronary artery stent placement - RCA stent - 2004 -2005 S/P coronary artery stent placement - RCA stent - [id number] Disease Active 2013-02-01 00:00:0 0 [facility] Weakness Weakness Problem Active [facility] Acute bronchitis Acute bronchitis Problem Active [facility] Acute renal failure superimposed on chronic kidney dis ease Acute on chronic renal failure Problem Active [facility] Acute on chronic renal insufficiency Acute on chronic renal insufficiency Problem Active [facility] Cellulitis Cellulitis Problem Active [facility] Uncontrolled diabetes mellitus Uncontrolled diabetes mellitus Problem Active [facility] Altered mental status Altered mental state Problem Active [facility] Cellulitis of right lower extremity Cellulitis of right lower ex tremity Problem Active [facility] Hyperglycemia Hyperglycemia Problem Active [facility] Renal failure Renal failure Problem Active [facility] Sepsis Sepsis Problem Active [facility] Pneumonia Pneumonia Problem Active [facility] Allergies, Adverse Reactions, Alerts Allergy Name Allergy Type Status Severity Reaction(s) Onset Date Inacti ve Date Treating Clinician Comments Source Quinapril Allergy to Substance Active Severe ANGIOEDEMA 2019-02-28 00: 00:00 [facility] Vancomycin Allergy to Substance Active Moderate 2019-02-28 00:00:0 0 [facility] Exenatide Allergy to Substance Active Moderate [facility] 2019-02-28 00:00:00 [facility] Sitagliptin Allergy to Substance Active Moderate [facility] 2019-02-28 00: 00:00 [facility] Quinapril Drug Allergy Active Swelling 2013-02-03 00:00:00 [facility] Exenatide Propensity to adverse reactions Active 12-24 00:00:00 SWELLS [facility] Sitagliptin Propensity to adverse reactions Active 2012 00:00:00 EFFECTS LIVER [facility] Social History Social Habit Start Date Stop Date Quantity Comments Source Sex Assigned At [facility] Smoking Status Start Date Stop Date Source Never smoker [facility] Medications Ordered Medication Name Filled Medication Name Start Date Stop Da te Current Medication? Ordering Clinician Indication Dosage Frequency Signature (SIG) Comments Components Source Linezolid (Zyvox) 600 Mg Tablet, 600 Mg Oral Linezolid (Zyvox) 600 Mg Tablet, 600 Mg Oral 2018-03-01 00:00:00 2018-04-27 00:00:00 Belinda Nelson Md 600 Every 12 Hours [facility] pregabalin (LYRICA) 150 MG capsule 2017-08-25 12:18:14 Yes 150mg Q.5D Take 150 mg by mouth 2 (two) times daily. [facility] metOLazone (ZAROXOLYN) 5 MG tablet 2017-08-25 12:18:14 Yes 5mg Q.5W Take 5 mg by mouth twice a week. [facility] metoprolol (LOPRESSOR) 25 MG tablet 2017-08-25 12:18:14 Yes 25mg QD Take 25 mg by mouth daily. [facility] pantoprazole (PROTONIX) 40 MG tablet 2017-08-25 12:18:14 Ye s 40mg QD Take 40 mg by mouth daily. [facility] terazosin (HYTRIN) 10 MG capsule 2017-08-25 12:18:14 Yes 10mg QD Take 10 mg by mouth nightly. [facility] warfarin (COUMADIN) 5 MG tablet 2017-08-25 12:18:14 Yes 5mg QD Take 5 mg by mouth daily TAKE 1 TAB DAILY EXCEPT 1.5 TABS MWF DIRECTED BY [facility]. . [facility] furosemide (LASIX) 40 MG tablet 2017-08-25 12:18:13 Yes 40mg QD Take 40 mg by mouth daily. [facility] insulin aspart (NOVOLOG) 100 unit/mL In 2017-08-25 12:18:13 Yes 35U Inject 35 Units subcutaneously 3 (three) times daily with meals. [facility] insulin detemir (LEVEMIR) 100 unit/mL (3 mL) In injection 2017-08-25 12:18:13 Yes 67U Q.5D Inject 67 Units subcuta neously 2 (two) times daily. [facility] Missing or Non-Formulary Medication 2017-08-25 12:18:13 Yes KETOCONAZOLE 2% 3-5X/WK . [facility] Missing or Non-Formulary Medication 2017-08-25 12:18:13 Yes Q.5D 2 (two) times daily BETAMETHASONE DIPROPIONATE 0. 05% TO RASH . [facility] aspirin 81 MG EC tablet 2017-08-25 12:11:14 Yes 81mg QD Take 81 mg by mouth daily. [facility] atorvastatin (LIPITOR) 80 MG tablet 2017-08-25 12:11:14 Yes 80mg QD Take 80 mg by mouth daily. [facility] betamethasone, augmented, (DIPROLENE) 0.05 % ointment 2017-08-25 12:11:14 Yes Q.5D Apply topically 2 (two) times daily. [facility] Sulfamethoxazole/Trimethoprim (Bactrim Ds Tablet) 1 Ea ch Tablet, 1 Each Oral Sulfamethoxazole/Trimethoprim (Bactrim Ds Tablet) 1 Each Tablet, 1 Each Oral 2015-11-17 00:00:00 2016-08-13 00:00:00 No Celine Vieyra Pa 1 Twice A Day [facility] cefepime (MAXIPIME) MBP 1 g in 100 mL NS 2014-08-01 00:00:00 Yes 1g Q24H Inject 1 g intravenously daily. For 4 more days only [facility] lactulose (CHRONULAC) 20 gram/30 mL solution 2014-08-01 00:00:00 Yes 20g Q.5D Take 30 mLs (20 g total) by mouth 2 (two) times daily. [facility] potassium chloride SA (K-DUR,KLOR-CON) 20 MEQ tablet 2 00:00:00 Yes 20meq QD Take 1 tablet (20 mEq total) by mouth so graham. [facility] tamsulosin (FLOMAX) 0.4 mg Cp24 24 hr capsule 2014-08-01 00:00:0 0 Yes .8mg QD Take 2 capsules (0.8 mg total) by mouth daily. [facility] Aspirin (Aspir 81) 81 Mg Tablet. Aspirin (Aspir 81) 81 Mg Tablet. Yes 81 Daily [facility] Atorvastatin Calcium 20 Mg Tablet Atorvastatin Calcium 20 Mg Tablet Yes 80 Today At 9:00PM [facility] Clindamycin Hcl 150 Mg Capsule Clindamycin Hcl 150 Mg Capsule Yes 300 Three Times A Day [facility] Furosemide 40 Mg Tablet Furosemide 40 Mg Tablet Yes 40 Daily [facility] Gabapentin 300 Mg Capsule Gabapentin 300 Mg Capsule Yes 1200 Twice A Day [facility] Insulin Aspart (Novolog) 100 Unit/1 Ml Cartridge Insul in Aspart (Novolog) 100 Unit/1 Ml Cartridge Yes [facility] Insulin Detemir (Levemir) 100 Unit/1 Ml Vial Insulin D etemir (Levemir) 100 Unit/1 Ml Vial Yes 67 Every 12 Hours [facility] Insulin Detemir (Levemir) 100 Unit/1 Ml Vial Insulin D etemir (Levemir) 100 Unit/1 Ml Vial Yes [facility] Ketoconazole 120 Ml Shampoo Ketoconazole 120 Ml Shampoo Yes 1 Daily [facility] Lactobacillus Acidophilus (Acidophilus) 1 Each Tab.raoul w Lactobacillus Acidophilus (Acidophilus) 1 Each Tab.chew Yes Twice A Day [facility] Metolazone 5 Mg Tablet Metolazone 5 Mg Tablet Yes 5 Daily [facility] Metoprolol Tartrate 25 Mg Tablet Metoprolol Tartrate 25 Mg Tablet Yes 25 Twice A Day [facility] Terazosin Hcl 5 Mg Capsule Terazosin Hcl 5 Mg Capsule Yes 10 Bedtime [facility] Warfarin Sodium 2.5 Mg Tablet Warfarin Sodium 2.5 Mg Tablet Yes 7.5 .mo We Fr [facility] Warfarin Sodium 2.5 Mg Tablet Warfarin Sodium 2.5 Mg Tablet Yes 5 .sa [place] [facility] Aspirin (Aspir 81) 81 Mg Tablet., 81 Mg Oral Aspirin (Aspir 81) 81 Mg Tablet., 81 Mg Oral 2019-02-04 00:00:00 No 81 Da gladys [facility] Atorvastatin Calcium 20 Mg Tablet, 80 Mg Oral Atorvast atin Calcium 20 Mg Tablet, 80 Mg Oral 2019-02-04 00:00:00 No 80 Today At 9:00 PM [facility] Furosemide 40 Mg Tablet, 40 Mg Oral Furosemide 40 Mg Tablet, 40 Mg Oral 2019-02-04 00:00:00 No 40 Daily [facility] Gabapentin 300 Mg Capsule, 1200 Mg Oral Gabapentin 300 Mg Ca psule, 1200 Mg Oral 2019-02-04 00:00:00 No 1200 Twice A Day [facility] Insulin Aspart (Novolog) 100 Unit/1 Ml Cartridge, Insu raúl Aspart (Novolog) 100 Unit/1 Ml Cartridge, 2019-02-04 00:00:00 No [facility] Insulin Detemir (Levemir) 100 Unit/1 Ml Vial, 67 Sub- Q Insulin Detemir (Levemir) 100 Unit/1 Ml Vial, 67 Sub-Q 2019-02-04 00:00:00 No 67 Every 12 Hours [facility] Ketoconazole 120 Ml Shampoo, 1 Udpkt Topically Ketocon azole 120 Ml Shampoo, 1 Udpkt Topically 2019-02-04 00:00:00 No 1 Daily [facility] Lactobacillus Acidophilus (Acidophilus) 1 Each Tab.raoul w, Oral Lactobacillus Acidophilus (Acidophilus) 1 Each Tab.chew, Oral 2019-02-04 00:00:00 No Twice A Day [facility] Metolazone 5 Mg Tablet, 5 Mg Oral Metolazone 5 Mg Tablet, 5 Mg O ral 2019-02-04 00:00:00 No 5 Daily [facility] Metoprolol Tartrate 25 Mg Tablet, 25 Mg Oral Metoprolo l Tartrate 25 Mg Tablet, 25 Mg Oral 2019-02-04 00:00:00 No 25 Twice A Day [facility] Terazosin Hcl 5 Mg Capsule, 10 Mg Oral Terazosin Hcl 5 Mg Capsul e, 10 Mg Oral 2019-02-04 00:00:00 No 10 Bedtime [facility] Warfarin Sodium 2.5 Mg Tablet, 5 Mg Oral Warfarin Sodi um 2.5 Mg Tablet, 5 Mg Oral 2019-02-04 00:00:00 No 5 .sa [place] [facility] Warfarin Sodium 2.5 Mg Tablet, 7.5 Mg Oral Warfarin So dium 2.5 Mg Tablet, 7.5 Mg Oral 2019-02-04 00:00:00 No 7.5 .mo We Fr [facility] Clindamycin Hcl 150 Mg Capsule, 300 Mg Oral Clindamyci n Hcl 150 Mg Capsule, 300 Mg Oral 2019-01-28 00:00:00 No 300 Three Times A Da y [facility] Insulin Detemir (Levemir) 100 Unit/1 Ml Vial, Insulin Detemir (Levemir) 100 Unit/1 Ml Vial, 2019-01-28 00:00:00 No [facility] Benzonatate (Tessalon Perle) 100 Mg Capsule, 200 Mg Or al Benzonatate (Tessalon Perle) 100 Mg Capsule, 200 Mg Oral 2018-12-14 00:00:00 No 200 Twice A Day as needed for Cough [facility] Duloxetine Hcl (Cymbalta) 20 Mg Capcr, 20 Mg Oral Dulo xetine Hcl (Cymbalta) 20 Mg Capcr, 20 Mg Oral 2018-12-14 00:00:00 No 20 Tiffany ly [facility] Pantoprazole Sodium (Protonix) 40 Mg Tablet., 40 Mg Oral Pantoprazole Sodium (Protonix) 40 Mg Tablet.dr, 40 Mg Oral 2018-12-14 00:00:00 No 40 Daily [facility] Phenol (Castellani Crabtree Modified) 29.57 Ml Liquid, 1 Dose Topically Phenol (Castellani Crabtree Modified) 29.57 Ml Liquid, 1 Dose Topically 2018-12-14 00:00:00 No 1 Bedtime [facility] Clindamycin Hcl 150 Mg Capsule, 300 Mg Oral Clindamyci n Hcl 150 Mg Capsule, 300 Mg Oral 2018-08-12 00:00:00 No 300 Four Times Daily [facility] Linezolid (Zyvox) 600 Mg Tablet, 600 Mg Oral Linezolid (Zyvox) 600 Mg Tablet, 600 Mg Oral 2018-08-12 00:00:00 No 600 Daily [facility] Econazole Nitrate 15 Gm Cream..g., 1 Udpkt Topical Eco nazole Nitrate 15 Gm Cream..g., 1 Udpkt Topical 2018-04-27 00:00:00 No 1 Daily [facility] Doxycycline Or , Doxycycline Or , 2016-11-03 00:00:00 No [facility] Desonide 5 Gm Powder, Desonide 5 Gm Powder, 2016-08-13 00:00:00 [facility] Gabapentin 600 Mg Tablet, 2 Tab Oral Gabapentin 600 Mg Tablet, 2 Tab Oral 2016-08-13 00:00:00 No 2 Twice A Day [facility] Metoprolol Tartrate 25 Mg Tablet, 25 Mg Oral Metoprolo l Tartrate 25 Mg Tablet, 25 Mg Oral 2016-08-13 00:00:00 No 25 Daily [facility] Procedures Procedure Date / Time Performed Performing Clinician [facility] Ultrasound guidance for vascular access 2019-01-30 00:00:00 FRANKI QUESADA [facility] INSERTION OF INFUSION DEV INTO SUP VENA CAVA, PERC APPROACH 2018-12-15 00:00:00 MEAGAN OCHOA [facility] CT of abdomen and pelvis without contrast 2018-06-08 00:00:00 CARROLL HICKS [facility] Ultrasound guidance for vascular access 2018-06-08 00:00:00 DENIS GRANADOS [facility] INSERTION OF INFUSION DEV INTO SUP VENA CAVA, PERC APPROACH 2018-06-08 00:00:00 RONALD SAVAGE [facility] Encounters Start Date/Time End Date/Time Encounter Type Admission Type [facility] Care Department Encounter ID Source 2019-02-28 15:27:00 2019-02-28 19:00:00 Departed Emergency Room [facility] [id number] [facility] 2019-01-28 05:35:00 2019-02-07 18:24:00 Discharged Inpatient 1 CARROLL LIMA [facility] [id number] [facility] 2018-12-15 09:18:00 2018-12-18 10:23:00 Discharged Inpatient 1 RICHARD PONCE [facility] [id number] [facility] 2018-08-10 19:02:00 2018-08-13 08:45:00 Discharged Inpatient 1 RICHARD PONCE [facility] [id number] [facility] 2018-06-05 12:17:00 2018-06-13 13:54:00 Discharged Inpatient 1 DENIS GRANADOS [facility] [id number] [facility] 2018-05-28 13:02:00 2018-05-30 14:30:00 Discharged Inpatient 1 CARROLL LIMA [facility] [id number] [facility] 2018-04-27 16:47:00 2018-04-30 14:56:00 Discharged Inpatient 1 KEVIN NAYLOR [facility] [id number] [facility] 2018-03-28 18:03:00 2018-04-01 14:39:00 Discharged Inpatient 1 CARROLL LIMA [facility] [id number] [facility] 2018-02-22 11:30:00 2018-03-02 15:27:00 Discharged Inpatient 1 CARROLL LIMA [facility] [id number] [facility] 2017-07-10 09:29:00 2017-07-16 14:42:00 Discharged Inpatient ER CARROLL LIMA [facility] [id number] [facility] 2016-11-01 09:57:00 2016-11-03 10:08:00 Discharged Inpatient [facility] [id number] [facility] Results Test Description Test Time Test Comments Results Result Comments Source CHEST SINGLE (PORTABLE) 2019-12-26 11:49:00 [facility] [address] [address] Patient Name: TONEY NVAA MR #: [id number] : 1940 Age/Sex: 79/M Req #: [id number] [facility] Physician: Ordered by: BENITO SUAREZ MD Report #: [id number] Location: ER Room/Bed: Procedure: [id number] DX/CHEST SINGLE (PORTABLE) Exam Date: 12/26/19 Exam Time: 1130 REPORT STATUS: Signed TECHNIQUE: Frontal view of the chest. INDICATION: SOB, CHF? [id number] 1130 COMPARISON: 02/04/2019 DISCUSSION: Limited evaluation due to portable technique. Lines and hardware: Midline sternotomy changes are stable. Linear calcification projecting over the left infrahilar region is stable. Heart and mediastinum: Stable. Lungs and pleura: Similar appearance of left basilar opacification with blunting of the left costophrenic angle. Right lung is clear. Negative for pneumothorax. Soft tissues and bones: No acute abnormality. IMPRESSION: Similar x-ray dated 02/04/2019 there is a left basilar opacification which could represent any combination of consolidation, effusion and atelectasis. Signed by: Robles Almaraz MD on 12/26/2019 11:51 AM Dictated By: ROBLES ALMARAZ MD 1151 Transcribed By: ANAT on 12/26/19 1151 COPY TO: BENITO SUAREZ MD Sodium Level 2019-02-28 17:06:00 Test Item Sodium Level (test code = 2951-2) 137 136-145 [facility] [id number] 17:06:00* Test Item Value Reference Range Interpretation Comments Potassium Level (test code = 2823-3) 3.7 3.5-5.1 [facility]ide [id number] 17:06:00* Test Item Value Reference Range Interpretation Comments Chloride Level (test code = 2075-0) 96 98-107 L [facility]viewCarbon Dioxide [id number] 17:06:00* Test Item Value Reference Range Interpretation Comments Carbon Dioxide Level (test code = 2028-9) 31 22-29 H [facility]viewAnion [id number] 17:06:00* Test Item Value Reference Range Interpretation Comments Anion Gap (test code = 34332-9) 13.7 8-16 [facility] Urea [id number] 17:06:00* Test Item Value Reference Range Interpretation Comments Blood Urea Nitrogen (test code = 3094-0) 28 7-26 H [facility]viewCreatinine2019-11-05 17:06:00* Test Item Value Reference Range Interpretation Comments Creatinine (test code = 2160-0) 1.55 0.72-1.25 H [facility]BUN/Creatinine [id number] 17:06:00* Test Item Value Reference Range Interpretation Comments BUN/Creatinine Ratio (test code = 3097-3) 18 6-25 [facility] Glomerular Filtration Rate 2019-02-28 17:06:00* Test Item Value Reference Range Interpretation Comments Estimat Glomerular Filtration Rate (test code = 554741959) 43 >60 L Ranges were taken from the National Kidney Disease Education Program and the [facility] literature.Reference ranges:60 or greater: [id number] ( for 3 consecutive months): Chronic kidney disease 15 or less: Kidney failureCHRISTUS [facility] – LongviewGlucose [id number] 17:06:00* Test Item Value Reference Range Interpretation Comments Glucose Level (test code = VZI5010) 160 74-118 H [facility]viewCalcium [id number] 17:06:00* Test Item Value Reference Range Interpretation Comments Calcium Level (test code = 25053-7) 8.1 8.4-10.2 L [facility]viewTotal [id number] 17:06:00* Test Item Value Reference Range Interpretation Comments Total Bilirubin (test code = 1975-2) 0.3 0.2-1.2 [facility]view[facility]artate Amino Transf (AST/SGOT) 2019-02-28 17:06:00* Test Item Value Reference Range Interpretation Comments Aspartate Amino Transf (AST/SGOT) (test code = Aspartate Amino Transf (AST/SGOT)) 24 5-34 [facility]viewAlanine Aminotransferase (ALT/SGPT) 2019-02-28 17:06:00* Test Item Value Reference Range Interpretation Comments Alanine Aminotransferase (ALT/SGPT) (test code = 1742-6) 30 0-55 [facility]viewTotal [id number] 17:06:00* Test Item Value Reference Range Interpretation Comments Total Protein (test code = 2885-2) 6.6 6.5-8.1 [facility]viewAlbumin2019-11-05 17:06:00* Test Item Value Reference Range Interpretation Comments Albumin (test code = 1751-7) 3.1 3.5-5.0 L [facility]viewGlobulin2019-11-05 17:06:00* Test Item Value Reference Range Interpretation Comments Globulin (test code = 61186-3) 3.5 2.3-3.5 [facility]viewAlbumin/Globulin [id number] 17:06:00 * Test Item Value Reference Range Interpretation Comments Albumin/Globulin Ratio (test code = 1759-0) 0.9 0.8-2.0 [facility]viewAlkaline [id number] 17:06:00* Test Item Value Reference Range Interpretation Comments Alkaline Phosphatase (test code = 6768-6) 76 40-150 [facility]viewWhite Blood [id number] 16:49:00* Test Item Value Reference Range Interpretation Comments White Blood Count (test code = 6690-2) 8.18 4.8-10.8 [facility]viewRed Blood [id number] 16:49:00* Test Item Value Reference Range Interpretation Comments Red Blood Count (test code = 789-8) 3.87 4.3-5.7 L [facility]viewHemoglobin2019-11-05 16:49:00* Test Item Value Reference Range Interpretation Comments Hemoglobin (test code = 84158-8) 11.1 14.0-18.0 L [facility]viewHematocrit2019-11-05 16:49:00* Test Item Value Reference Range Interpretation Comments Hematocrit (test code = 4544-3) 34.8 38.2-49.6 L [facility]viewMean Corpuscular [id number] 16:49:00* Test Item Value Reference Range Interpretation Comments Mean Corpuscular Volume (test code = 787-2) 89.9 81-99 [facility]Mean Corpuscular Dqogildrsa4311-86-90 16:49:00* Test Item Value Reference Range Interpretation Comments Mean Corpuscular Hemoglobin (test code = 785-6) 28.7 28-32 [facility]viewMean Corpuscular Hemoglobin Concent 2019-02-28 16:49:00* Test Item Value Reference Range Interpretation Comments Mean Corpuscular Hemoglobin Concent (test code = 786-4) 31.9 31-35 [facility]viewRed Cell Distribution Jjjvx1807-71-46 16:49:00* Test Item Value Reference Range Interpretation Comments Red Cell Distribution Width (test code = 19900-1) 16.3 11.7 -14.4 H [facility] LongviewPlatelet Cujag1422-51-32 16:49:00* Test Item Value Reference Range Interpretation Comments Platelet Count (test code = 777-3) 191 140-360 [facility]viewNeutrophils (%) (Auto)2019-02-28 16:49:00 * Test Item Value Reference Range Interpretation Comments Neutrophils (%) (Auto) (test code = 84215-1) 66.9 38.7-80.0 [facility]viewLymphocytes (%) (Auto)2019-02-28 16:49:00 * Test Item Value Reference Range Interpretation Comments Lymphocytes (%) (Auto) (test code = 736-9) 19.8 18.0-39.1 [facility]viewMonocytes (%) (Auto)2019-02-28 16:49:00* Test Item Value Reference Range Interpretation Comments Monocytes (%) (Auto) (test code = 5905-5) 7.0 4.4-11.3 [facility]viewEosinophils (%) (Auto)2019-02-28 16:49:00 * Test Item Value Reference Range Interpretation Comments Eosinophils (%) (Auto) (test code = 713-8) 5.6 0.0-6.0 [facility]viewBasophils (%) (Auto)2019-02-28 16:49:00* Test Item Value Reference Range Interpretation Comments Basophils (%) (Auto) (test code = 706-2) 0.5 0.0-1.0 [facility]viewIM GRANULOCYTES %2019-02-28 16:49:00* Test Item Value Reference Range Interpretation Comments IM GRANULOCYTES % (test code = IM GRANULOCYTES %) 0.2 0.0- 1.0 [facility]viewNeutrophils # (Auto)2019-02-28 16:49:00* Test Item Value Reference Range Interpretation Comments Neutrophils # (Auto) (test code = 751-8) 5.5 2.1-6.9 [facility] LongviewLymphocytes # (Auto)2019-02-28 16:49:00* Test Item Value Reference Range Interpretation Comments Lymphocytes # (Auto) (test code = 73607-8) 1.6 1.0-3.2 [facility]viewMonocytes # (Auto)2019-02-28 16:49:00* Test Item Value Reference Range Interpretation Comments Monocytes # (Auto) (test code = 742-7) 0.6 0.2-0.8 [facility]viewEosinophils # (Auto)2019-02-28 16:49:00* Test Item Value Reference Range Interpretation Comments Eosinophils # (Auto) (test code = 711-2) 0.5 0.0-0.4 H [facility]viewBasophils # (Auto)2019-02-28 16:49:00* Test Item Value Reference Range Interpretation Comments Basophils # (Auto) (test code = 704-7) 0.0 0.0-0.1 [facility]viewAbsolute Immature Granulocyte (auto 2019-02-28 16:49:00* Test Item Value Reference Range Interpretation Comments Absolute Immature Granulocyte (auto (jeyson t code = Absolute Immature Granulocyte (auto) 0.02 0-0.1 [facility] LongviewBedside Menbyte2447-68-60 06:52:00* Test Item Value Reference Range Interpretation Comments Bedside Glucose (test code = 38602-4) 217 70-120 H Meter ID: [id number] [facility] LongviewCreatine Kinase 2019-02-07 12:49:00* Test Item Value Reference Range Interpretation Comments Creatine Kinase (test code = 2157-6) 361 30-200 H [facility] LongviewCreatine Qkbquo0696-71-35 12:49:00* Test Item Value Reference Range Interpretation Comments Creatine Kinase (test code = 2157-6) 361 30-200 H [facility] LongviewProthrombin Sifb5314-26-63 06:41:00* Test Item Value Reference Range Interpretation Comments Prothrombin Time (test code = 5902-2) 13.8 11.9-14.5 [facility] LongviewProthromb Time International Ratio 2019-02-07 06:41:00* Test Item Value Reference Range Interpretation Comments Prothromb Time International Ratio (test code = 6301-6) 1.01 Oral Anticoagulant Therapy INR Values:1. Low Intensity Therapy 1.5 - 2.02 . Moderate Intensity Therapy 2.0 - 3.03. High Intensity Therapy(1) 2.5 - 3. 54. High Intensity Therapy(2) 3.0 - 4.05. Panic Value INR > 5.0 [facility]woododium Qxarv3435-88-91 06:41:00* Test Item Value Reference Range Interpretation Comments Sodium Level (test code = 2951-2) 139 136-145 [facility] LongviewPotassium Szneq7100-51-24 06:41:00* Test Item Value Reference Range Interpretation Comments Potassium Level (test code = 2823-3) 3.8 3.5-5.1 [facility] LongviewChloride Cclhu4419-56-34 06:41:00* Test Item Value Reference Range Interpretation Comments Chloride Level (test code = 2075-0) 94 98-107 L [facility] LongviewCarbon Dioxide Qxpmn1165-82-41 06:41:00* Test Item Value Reference Range Interpretation Comments Carbon Dioxide Level (test code = 2028-9) 35 22-29 H [facility] LongviewAnion Vkp5486-55-51 06:41:00* Test Item Value Reference Range Interpretation Comments Anion Gap (test code = 40030-1) 13.8 8-16 [facility] LongviewBlood Urea Gwvufypw1905-56-08 06:41:00* Test Item Value Reference Range Interpretation Comments Blood Urea Nitrogen (test code = 3094-0) 28 7-26 H [facility] LongviewCreatinine2019-10-15 06:41:00* Test Item Value Reference Range Interpretation Comments Creatinine (test code = 2160-0) 1.44 0.72-1.25 H [facility] LongviewBUN/Creatinine Jebcm9674-56-19 06:41:00* Test Item Value Reference Range Interpretation Comments BUN/Creatinine Ratio (test code = 3097-3) 19 6-25 [facility] LongviewEstimat Glomerular Filtration Rate 2019-02-07 06:41:00* Test Item Value Reference Range Interpretation Comments Estimat Glomerular Filtration Rate (test code = 822052896) 47 >60 L Ranges were taken from the National Kidney Disease Education Program and the [facility] [employer] literature.Reference ranges:60 or greater: Aglidx18-58 ( for 3 consecutive months): Chronic kidney disease 15 or less: Kidney failureCHRISTUS Good Shepherd Medical Center – LongviewGlucose Vypvk5611-03-07 06:41:00* Test Item Value Reference Range Interpretation Comments Glucose Level (test code = GYW6632) 183 74-118 H [facility] LongviewCalcium Tjuee1708-41-95 06:41:00* Test Item Value Reference Range Interpretation Comments Calcium Level (test code = 49028-2) 8.5 8.4-10.2 [facility] LongviewProthrombin Hbqr2855-73-66 06:41:00* Test Item Value Reference Range Interpretation Comments Prothrombin Time (test code = 5902-2) 13.8 11.9-14.5 [facility] LongviewProthromb Time International Ratio 2019-02-07 06:41:00* Test Item Value Reference Range Interpretation Comments Prothromb Time International Ratio (test code = 6301-6) 1.01 Oral Anticoagulant Therapy INR Values:1. Low Intensity Therapy 1.5 - 2.02 . Moderate Intensity Therapy 2.0 - 3.03. High Intensity Therapy(1) 2.5 - 3. 54. High Intensity Therapy(2) 3.0 - 4.05. Panic Value INR > 5.0 [facility] LongviewWhite Blood Uwhrz8958-63-61 06:28:00* Test Item Value Reference Range Interpretation Comments White Blood Count (test code = 6690-2) 7.46 4.8-10.8 [facility] LongviewRed Blood Vnnvy1625-81-86 06:28:00* Test Item Value Reference Range Interpretation Comments Red Blood Count (test code = 789-8) 3.41 4.3-5.7 L [facility] LongviewHemoglobin2019-10-15 06:28:00* Test Item Value Reference Range Interpretation Comments Hemoglobin (test code = 27497-9) 9.4 14.0-18.0 L [facility] LongviewHematocrit2019-10-15 06:28:00* Test Item Value Reference Range Interpretation Comments Hematocrit (test code = 4544-3) 30.2 38.2-49.6 L [facility]viewMean Corpuscular Jfyyub3914-72-61 06:28:00* Test Item Value Reference Range Interpretation Comments Mean Corpuscular Volume (test code = 787-2) 88.6 81-99 [facility]viewMean Corpuscular Xbontzbsrt0448-62-35 06:28:00* Test Item Value Reference Range Interpretation Comments Mean Corpuscular Hemoglobin (test code = 785-6) 27.6 28-32 L [facility] Corpuscular Hemoglobin Concent 2019-02-07 06:28:00* Test Item Value Reference Range Interpretation Comments Mean Corpuscular Hemoglobin Concent (test code = 786-4) 31.1 31-35 [facility] LongviewRed Cell Distribution Skeoq0764-85-19 06:28:00* Test Item Value Reference Range Interpretation Comments Red Cell Distribution Width (test code = 45493-5) 15.4 11.7 -14.4 H [facility] LongviewPlatelet Eaysu6033-39-06 06:28:00* Test Item Value Reference Range Interpretation Comments Platelet Count (test code = 777-3) 304 140-360 [facility]viewNeutrophils (%) (Auto)2019-02-07 06:28:00 * Test Item Value Reference Range Interpretation Comments Neutrophils (%) (Auto) (test code = 17231-8) 64.8 38.7-80.0 [facility] LongviewLymphocytes (%) (Auto)2019-02-07 06:28:00 * Test Item Value Reference Range Interpretation Comments Lymphocytes (%) (Auto) (test code = 736-9) 18.4 18.0-39.1 [facility]viewMonocytes (%) (Auto)2019-02-07 06:28:00* Test Item Value Reference Range Interpretation Comments Monocytes (%) (Auto) (test code = 5905-5) 11.1 4.4-11.3 [facility]viewEosinophils (%) (Auto)2019-02-07 06:28:00 * Test Item Value Reference Range Interpretation Comments Eosinophils (%) (Auto) (test code = 713-8) 4.7 0.0-6.0 [facility]viewBasophils (%) (Auto)2019-02-07 06:28:00* Test Item Value Reference Range Interpretation Comments Basophils (%) (Auto) (test code = 706-2) 0.5 0.0-1.0 [facility] LongviewIM GRANULOCYTES %2019-02-07 06:28:00* Test Item Value Reference Range Interpretation Comments IM GRANULOCYTES % (test code = IM GRANULOCYTES %) 0.5 0.0- 1.0 [facility]viewNeutrophils # (Auto)2019-02-07 06:28:00* Test Item Value Reference Range Interpretation Comments Neutrophils # (Auto) (test code = 751-8) 4.8 2.1-6.9 [facility] LongviewLymphocytes # (Auto)2019-02-07 06:28:00* Test Item Value Reference Range Interpretation Comments Lymphocytes # (Auto) (test code = 17970-3) 1.4 1.0-3.2 [facility] LongviewMonocytes # (Auto)2019-02-07 06:28:00* Test Item Value Reference Range Interpretation Comments Monocytes # (Auto) (test code = 742-7) 0.8 0.2-0.8 [facility]viewEosinophils # (Auto)2019-02-07 06:28:00* Test Item Value Reference Range Interpretation Comments Eosinophils # (Auto) (test code = 711-2) 0.4 0.0-0.4 [facility]viewBasophils # (Auto)2019-02-07 06:28:00* Test Item Value Reference Range Interpretation Comments Basophils # (Auto) (test code = 704-7) 0.0 0.0-0.1 [facility] LongviewAbsolute Immature Granulocyte (auto 2019-02-07 06:28:00* Test Item Value Reference Range Interpretation Comments Absolute Immature Granulocyte (auto (jeyson t code = Absolute Immature Granulocyte (auto) 0.04 0-0.1 [facility] LongviewBedside Thwznrq0295-38-60 06:05:00* Test Item Value Reference Range Interpretation Comments Bedside Glucose (test code = 68655-6) 186 70-120 H Meter ID: [id number] [facility] SystemMagnesium Level 2019-02-05 06:12:00* Test Item Value Reference Range Interpretation Comments Magnesium Level (test code = 97835-2) 1.9 1.3-2.1 [facility] LongviewMagnesium Aqkaz3627-60-01 06:12:00* Test Item Value Reference Range Interpretation Comments Magnesium Level (test code = 90021-4) 1.9 1.3-2.1 [facility] Owxzthk4208-37-88 09:51:00* Test Item Value Reference Range Interpretation Comments Blood Culture (test code = 23168828) NO GROWTH AFTER 5 DAYS, FINAL REPORT [facility] Lpnpytn8217-26-19 09:51:00* Test Item Value Reference Range Interpretation Comments Blood Culture (test code = 72683306) NO GROWTH AFTER 5 DAYS, FINAL REPORT [facility] Tnjeqsk1464-97-99 07:15:00* Test Item Value Reference Range Interpretation Comments Sputum Culture (test code = 624-7) No Result Data Provided [facility] Almblvs9147-92-02 07:15:00* Test Item Value Reference Range Interpretation Comments Sputum Culture (test code = 624-7) No Result Data Provided [facility] LongviewCHES SINGLE (PORTABLE)2019-02-04 04:58:00 [facility] [address] [place] [address] Patient Name: TONEY NAVA MR #: [id number] : 1940 Age/Sex: 78/M Req #: [id number] Adm Physician: CARROLL LIMA MD Ordered by: DENIS GRANADOS MD Report #: [id number] Location: ICU Room/Bed: [place] [address] Procedure: [id number] DX/CHEST SINGLE (PORTABLE) Exam Date: 02/04/19 Exam [...] Signed By: CELINA MCKEON MD, MD on 02/04/19502 Transcribed By: ANAT on 502 COPY TO: DENIS GRANADOS MD, [facility] CHEST SINGLE (PORTABLE)2019-02-03 06:51:00 [place] [address] Patient Name: TONEY NAVA MR #: [id number] : 1940 Age/Sex: 78/M Req #: [id number] Adm Physician: CARROLL LIMA MD Ordered by: DENIS GRANADOS MD Report #: [id number] Location: ICU Room/Bed: ICU On license of [facility] Procedure: [id number] DX/CHEST SINGLE (PORTABLE) Exam Date: Exam Time: [...] on 02/03/19652 COPY TO: DENIS GRANADOS MD, ABI Phosphorus Ugncv0653-91-34 05:45:00* Test Item Value Reference Range Interpretation Comments Phosphorus Level (test code = XJP6919) 2.9 2.3-4.7 [facility] LongviewTotal Lbdphbpaz0081-90-80 05:45:00* Test Item Value Reference Range Interpretation Comments Total Bilirubin (test code = 1975-2) 1.0 0.2-1.2 [facility] LongviewAspartate Amino Transf (AST/SGOT) 2019-02-03 05:45:00* Test Item Value Reference Range Interpretation Comments Aspartate Amino Transf (AST/SGOT) (test code = Aspartate Amino Transf (AST/SGOT)) 100 5-34 H [facility] LongviewAlanine Aminotransferase (ALT/SGPT) 2019-02-03 05:45:00* Test Item Value Reference Range Interpretation Comments Alanine Aminotransferase (ALT/SGPT) (test code = 1742-6) 72 0-55 H [facility] LongviewTotal Qkyrtop8822-90-67 05:45:00* Test Item Value Reference Range Interpretation Comments Total Protein (test code = 2885-2) 6.7 6.5-8.1 [facility] LongviewAlbumin2019-10-11 05:45:00* Test Item Value Reference Range Interpretation Comments Albumin (test code = 1751-7) 2.5 3.5-5.0 L [facility] LongviewGlobulin2019-10-11 05:45:00* Test Item Value Reference Range Interpretation Comments Globulin (test code = 33696-1) 4.2 2.3-3.5 H [facility] LongviewAlbumin/Globulin Rasac5765-91-53 05:45:00 * Test Item Value Reference Range Interpretation Comments Albumin/Globulin Ratio (test code = 1759-0) 0.6 0.8-2.0 L [facility] LongviewAlkaline Agqfawddear8885-93-59 05:45:00* Test Item Value Reference Range Interpretation Comments Alkaline Phosphatase (test code = 6768-6) 69 40-150 [facility] LongviewPhosphorus Joaid5891-38-69 05:45:00* Test Item Value Reference Range Interpretation Comments Phosphorus Level (test code = RBA8476) 2.9 2.3-4.7 [facility] LongviewArterial Blood tE7162-33-35 01:18:00* Test Item Value Reference Range Interpretation Comments Arterial Blood pH (test code = 2744-1) 7.37 7.31-7.41 [facility] LongviewArterial Blood Partial Pressure CO2 2019-02-03 01:18:00* Test Item Value Reference Range Interpretation Comments Arterial Blood Partial Pressure CO2 (test code = 2018-8) 58 41-51 H [facility] LongviewArterial Blood Partial Pressure O2 2019-02-03 01:18:00* Test Item Value Reference Range Interpretation Comments Arterial Blood Partial Pressure O2 (test code = 2018-8) 106 80-105 H [facility] LongviewArterial Blood QLM70408-82-71 01:18:00* Test Item Value Reference Range Interpretation Comments Arterial Blood HCO3 (test code = 1960-4) 34 23-28 H [facility] LongviewArterial Blood Base Mflcwd8838-04-53 01:18:00* Test Item Value Reference Range Interpretation Comments Arterial Blood Base Excess (test code = 1925-7) 9.0 -2-3 H [facility] LongviewArterial Blood Oxygen Saturation 2019-02-03 01:18:00* Test Item Value Reference Range Interpretation Comments Arterial Blood Oxygen Saturation (test code = 2708-6) 98.0 95-98 [facility] LongviewFiO22019-10-11 01:18:00* Test Item Value Reference Range Interpretation Comments FiO2 (test code = FiO2) 40 5L NASAL CANNULACHRISTUS Good Shepherd Medical Center – LongviewArterial Blood pH 2019-02-03 01:18:00* Test Item Value Reference Range Interpretation Comments Arterial Blood pH (test code = 2744-1) 7.37 7.31-7.41 [facility] LongviewArterial Blood Partial Pressure CO2 2019-02-03 01:18:00* Test Item Value Reference Range Interpretation Comments Arterial Blood Partial Pressure CO2 (test code = 2018-8) 58 41-51 H [facility] LongviewArterial Blood Partial Pressure O2 2019-02-03 01:18:00* Test Item Value Reference Range Interpretation Comments Arterial Blood Partial Pressure O2 (test code = 2018-8) 106 80-105 H [facility] LongviewArterial Blood SBZ13126-37-72 01:18:00* Test Item Value Reference Range Interpretation Comments Arterial Blood HCO3 (test code = 1960-4) 34 23-28 H [facility] LongviewArterial Blood Base Fuygne5886-56-02 01:18:00* Test Item Value Reference Range Interpretation Comments Arterial Blood Base Excess (test code = 1925-7) 9.0 -2-3 H [facility] LongviewArterial Blood Oxygen Saturation 2019-02-03 01:18:00* Test Item Value Reference Range Interpretation Comments Arterial Blood Oxygen Saturation (test code = 2708-6) 98.0 95-98 [facility] LongviewFiO22019-10-11 01:18:00* Test Item Value Reference Range Interpretation Comments FiO2 (test code = FiO2) 40 5L NASAL CANNULACHRISTUS Good Shepherd Medical Center – LongviewBlood Gjsajld6332-50-73 11:26:00* Test Item Value Reference Range Interpretation Comments Blood Culture (test code = 600-7) No Result Data Provided [facility] LongviewBlood Fryxvbv4282-10-28 11:26:00* Test Item Value Reference Range Interpretation Comments Blood Culture (test code = 600-7) No Result Data Provided [facility] LongviewCHEST SINGLE (PORTABLE)2019-02-02 06:22:00 [facility] [address] [place] [address] Patient Name: TONEY NAVA MR #: [id number] : 1940 Age/Sex: 78/M Req #: [id number] Adm Physician: CARROLL LIMA MD Ordered by: DENIS GRANADOS MD Report #: [id number] Location: ICU Room/Bed: ICU On license of [facility] Procedure: [id number] DX/CHEST SINGLE (PORTABLE) Exam Date: 02/02/19 Exam [...] on 02/02/19622 COPY TO: DENIS GRANADOS MD, [facility] CHEST SINGLE (PORTABLE)2019-02-01 06:28:00 [place] [address] Patient Name: TONEY NAVA MR #: [id number] : 1940 Age/Sex: 78/M Req #: [id number] Adm Physician: CARROLL LIMA MD Ordered by: DENIS GRANADOS MD Report #: [id number] Location: ICU Room/Bed: [place] [address] Procedure: [id number] DX/CHEST SINGLE (PORTABLE) Exam Date: 02/01/19 Exam [...] 02/01/19634 C OPY TO: DENIS GRANADOS MD, [facility] Urine Glbelec1153-96-90 06:47:00* Test Item Value Reference Range Interpretation Comments Urine Culture (test code = 630-4) No Result Data Provided [facility] LongviewUrine Jmuabzd6411-64-56 06:47:00* Test Item Value Reference Range Interpretation Comments Urine Culture (test code = 630-4) No Result Data Provided [facility] LongviewCHES SINGLE (PORTABLE)2019-01-31 06:34:00 [place] [address] Patient Name: TONEY NAVA MR #: [id number] : 1940 Age/Sex: 78/M Req #: [id number] Adm Physician: CARROLL LIMA MD Ordered by: DENIS GRANADOS MD Report #: [id number] Location: ICU Room/Bed: ICU On license of [facility] Procedure: [id number] DX/CHEST SINGLE (PORTABLE) Exam Date: 01/31/19 Exam [...] on 01/31/19638 COPY TO: DENIS GRANADOS MD, [facility] CHEST SINGLE (PORTABLE)2019-01-30 18:59:00 [place] [address] Patient Name: TONEY NAVA MR #: [id number] : 1940 Age/Sex: 78/M Req #: [id number] Adm Physician: CARROLL LIMA MD Ordered by: REGGIE NOLEN MD Report #: [id number] Location: ICU Room/Bed: ICU 194 Procedure: [id number] DX/C HEST SINGLE (PORTABLE) Exam Date: 01/30/19 Exam Time : 1849 REPORT STATUS: Signed Exa mination: Single AP [...] 01/30/191901 COPY TO: REGGIE NOLEN MD IR YVGLKJK4904-64-56 17:39:00 [place] [address] Patient Name: TONEY NAVA MR #: [id number] : 1940 Age/Sex: 78/M Req #: [id number] Adm Physician: CARROLL LIMA MD Ordered by: FRANKI GOLDEN [employer] Report #: [id number] Location: ICU Room/Bed: ICU On license of [facility] Procedure: [id number] DX/IR CONSULT Exam Date: Exam Time: REPORT [...] Bard triple mina men CVC Catheter size (Ivorian): 7 Catheter length (cm): 16 Catheter flush: [...] TO: FRANKI GOLDEN NP NON-TUNNELLED CVC CATH YQUEDCK9823-18-12 17:39:00 [place] [address] Patient Name: TONEY NAVA MR #: [id number] : 1940 Age/Sex: 78/M Req #: [id number] Adm Physician: CARROLL LIMA MD Ordered by: FRANKI GOLDEN [employer] Report #: [id number] Location: ICU Room/Bed: [place] [address] Procedure: [id number] IR/NON-TUNNELLED CVC CATH PLACMNT Exam Date: 01/30/19 [...] placed: Bard triple lumen CVC Catheter size (Ivorian): 7 Catheter l ength (cm): 16 Catheter [...] Transcribed By: ANAT on 01/30/191739 COPY TO: YITBAREK,FRANKI [employer] US GUIDANCE FOR VASCULAR LITCG1038-50-87 17:39:00 [place] [address] Patient Name: TONEY NAVA MR #: [id number] : 1940 Age/Sex: 78/M Req #: [id number] Adm Physician: CARROLL LIMA MD Ordered by: FRANKI GOLDEN [employer] Report #: [id number] Location: ICU Room/Bed: ICU On license of [facility] Procedure: [id number] US/US GUIDANCE FOR VASCULAR ACCES Exam Date: [...] A sterile dressing was applied. Catheter placed: Crackle triple lumen CVC Catheter size (Ivorian): 7 Catheter l ength (cm): 16 Catheter [...] TO: FRANKI GOLDEN NP Differential Total Cells Xhbputy3264-63-22 11:01:00* Test Item Value Reference Range Interpretation Comments Differential Total Cells Counted (test code = Differen tial Total Cells Counted) 100 [facility]viewNeutrophils % (Manual)2019-01-30 11:01:00 * Test Item Value Reference Range Interpretation Comments Neutrophils % (Manual) (test code = 23616-7) 87 40-74 H [facility] LongviewLymphocytes % (Manual)2019-01-30 11:01:00 * Test Item Value Reference Range Interpretation Comments Lymphocytes % (Manual) (test code = 737-7) 9 19-48 L [facility] LongviewMonocytes % (Manual)2019-01-30 11:01:00* Test Item Value Reference Range Interpretation Comments Monocytes % (Manual) (test code = 744-3) 4 3.4-9.0 [facility] LongviewPlatelet Fqhztntf4614-75-17 11:01:00* Test Item Value Reference Range Interpretation Comments Platelet Estimate (test code = 30883-7) SLIGHTLY DECREASED [facility]view[facility]ate[facility] Morphology Gntlkzz5866-26-46 11:01:00* Test Item Value Reference Range Interpretation Comments Platelet Morphology Comment (test code = 44466-4) NORMAL [facility]viewRed Cell Morphology Azlsebj2263-43-97 11:01:00* Test Item Value Reference Range Interpretation Comments Red Cell Morphology Comment (test code = 6742-1) NORMAL [facility] LongviewDifferential Total Cells Counted 2019-01-30 11:01:00* Test Item Value Reference Range Interpretation Comments Differential Total Cells Counted (test code = Differradha tial Total Cells Counted) 100 [facility]viewNeutrophils % (Manual)2019-01-30 11:01:00 * Test Item Value Reference Range Interpretation Comments Neutrophils % (Manual) (test code = 87022-2) 87 40-74 H [facility] LongviewLymphocytes % (Manual)2019-01-30 11:01:00 * Test Item Value Reference Range Interpretation Comments Lymphocytes % (Manual) (test code = 737-7) 9 19-48 L [facility]viewMonocytes % (Manual)2019-01-30 11:01:00* Test Item Value Reference Range Interpretation Comments Monocytes % (Manual) (test code = 744-3) 4 3.4-9.0 [facility] LongviewPlatelet Jpzeztdt3381-92-47 11:01:00* Test Item Value Reference Range Interpretation Comments Platelet Estimate (test code = 81319-0) SLIGHTLY DECREASED [facility] LongviewPlatelet Morphology Rnbtxva9205-49-23 11:01:00* Test Item Value Reference Range Interpretation Comments Platelet Morphology Comment (test code = 77328-5) NORMAL [facility] LongviewRed Cell Morphology Czrgdda4420-70-41 11:01:00* Test Item Value Reference Range Interpretation Comments Red Cell Morphology Comment (test code = 6742-1) NORMAL [facility] LongviewB-Type Natriuretic Jjxnhel8205-59-37 10:30:00* Test Item Value Reference Range Interpretation Comments B-Type Natriuretic Peptide (test code = 43754-4) 192.1 0-100 H [facility]viewB-Type Natriuretic Hmzqhza5961-53-50 10:30:00* Test Item Value Reference Range Interpretation Comments B-Type Natriuretic Peptide (test code = 16726-5) 192.1 0-100 H [facility] LongviewLactic Acid Tisxb4511-33-22 10:22:00* Test Item Value Reference Range Interpretation Comments Lactic Acid Level (test code = Lactic Acid Level) 14.4 4.5- 19.8 [facility] LongviewLactic Acid Bmgtx1338-51-29 10:22:00* Test Item Value Reference Range Interpretation Comments Lactic Acid Level (test code = Lactic Acid Level) 14.4 4.5- 19.8 [facility] LongviewActivated Partial Thromboplast Time 2019-01-30 10:21:00* Test Item Value Reference Range Interpretation Comments Activated Partial Thromboplast Time (test code = 40269-8) 53.0 23.8-35.5 H [facility] LongviewActivated Partial Thromboplast Time 2019-01-30 10:21:00* Test Item Value Reference Range Interpretation Comments Activated Partial Thromboplast Time (test code = 21168-4) 53.0 23.8-35.5 H [facility]viewCHEST SINGLE (PORTABLE)2019-01-30 10:18:00 [facility] [address] [place] [address] Patient Name: TONEY NAVA MR #: [id number] : 1940 Age/Sex: 78/M Req #: [id number] Adm Physician: CARROLL LIMA MD Ordered by: RICHARD PONCE MD Report #: [id number] Location: ICU Room/Bed: ICU On license of [facility] Procedure: [id number] DX/CHEST SINGLE (PORTABLE) Exam Date: 01/30/19 Exam [...] By: ANAT on 01/30/19 1021 COPY TO: RICAHRD PONCE MD CHEST SINGLE (PORTABLE)2019-01-30 09:02:00 [place] [address] Patient Name: TONEY NAVA MR #: [id number] : 1940 Age/Sex: 78/M Req #: [id number] Adm Physician: CARROLL LIMA MD Ordered by: DENIS GRANADOS MD Report #: [id number] Location: ICU Room/Bed: ICU On license of [facility] Procedure: [id number] DX/CHEST SINGLE (PORTABLE) Exam Date: 01/30/19 Exam [...] on 01/30/19903 COPY TO: DENIS GRANADOS MD, ABI Creatine Kinase SX2434-08-76 06:22:00* Test Item Value Reference Range Interpretation Comments Creatine Kinase MB (test code = 66809-4) 8.40 0-5.0 H [facility] LongviewCreatine Kinase NM9057-47-91 06:22:00* Test Item Value Reference Range Interpretation Comments Creatine Kinase MB (test code = 46986-4) 8.40 0-5.0 H [facility] LongviewInfluenza Virus Types A,B Antigen 2019-01-29 18:16:00* Test Item Value Reference Range Interpretation Comments Influenza Virus Types A,B Antigen (test code = 39762-7) NEGATIVE NEGATIVE [facility] LongviewInfluenza Virus Types A,B Antigen 2019-01-29 18:16:00* Test Item Value Reference Range Interpretation Comments Influenza Virus Types A,B Antigen (test code = 64529-0) NEGATIVE NEGATIVE [facility] Z2676-90-05 17:34:00* Test Item Value Reference Range Interpretation Comments Troponin I (test code = ZAL0974) 0.902 0-0.300 H [place] 04366019-10-06 17:34:00* Test Item Value Reference Range Interpretation Comments Troponin I (test code = YCD5652) 0.902 0-0.300 H [facility]viewCHEST SINGLE (PORTABLE)2019-01-29 06:23:00 [place] [address] Patient Name: TONEY NAVA MR #: [id number] : 1940 Age/Sex: 78/M Req #: [id number] Adm Physician: CARROLL LIMA MD Ordered by: DENIS GRANADOS MD Report #: [id number] [facility]: [facility] Procedure: [id number] DX/CHEST SINGLE (PORTABLE) Exam Date: 01/29/19 Exam [...] on 01/29/2019 6:25 AM Dictated By: ALEXX CLARK DO Electronica lly Signed By: ALEXX CLARK DO on 01/29/19624 Transcribed By: ANAT on 01/29/19624 COPY TO: DENIS GRANADOS MD, [facility] Urine WBC 2019-01-28 05:38:00* Test Item Value Reference Range Interpretation Comments Urine WBC (test code = 5821-4) 6-10 0-5 H [facility] LongviewUrine IYA2695-92-64 05:38:00* Test Item Value Reference Range Interpretation Comments Urine RBC (test code = 72533-5) 6-10 0-5 H [facility] LongviewUrine Rocmnfcj5296-44-12 05:38:00* Test Item Value Reference Range Interpretation Comments Urine Bacteria (test code = 17699-2) MODERATE NONE H [facility] LongviewUrine Epithelial Izgen0552-42-34 05:38:00 * Test Item Value Reference Range Interpretation Comments Urine Epithelial Cells (test code = 29695-0) FEW NONE [facility] LongviewUrine FGD0335-94-22 05:38:00* Test Item Value Reference Range Interpretation Comments Urine WBC (test code = 5821-4) 6-10 0-5 H [facility] LongviewUrine QDH7347-65-48 05:38:00* Test Item Value Reference Range Interpretation Comments Urine RBC (test code = 99271-3) 6-10 0-5 H [facility] LongviewUrine Mlipizco4607-39-03 05:38:00* Test Item Value Reference Range Interpretation Comments Urine Bacteria (test code = 88959-7) MODERATE NONE H [facility] LongviewUrine Epithelial Szvmw5276-47-62 05:38:00 * Test Item Value Reference Range Interpretation Comments Urine Epithelial Cells (test code = 50117-0) FEW NONE [facility] LongviewUrine Asyar3307-92-47 05:22:00* Test Item Value Reference Range Interpretation Comments Urine Color (test code = 5778-6) YELLOW YELLOW [facility] LongviewUrine Abjnmvy2497-48-50 05:22:00* Test Item Value Reference Range Interpretation Comments Urine Clarity (test code = 07763-9) CLEAR CLEAR [facility] LongviewUrine Specific Uiqlsye1093-85-70 05:22:00 * Test Item Value Reference Range Interpretation Comments Urine Specific [place] (test code = 5811-5) 1.015 1.010-1.02 5 [facility] LongviewUrine tE2080-84-03 05:22:00* Test Item Value Reference Range Interpretation Comments Urine pH (test code = 23021-4) 6 5-7 [facility]viewUrine Leukocyte Zryemlxt0535-83-15 05:22:00* Test Item Value Reference Range Interpretation Comments Urine Leukocyte Esterase (test code = 49853-9) NEGATIVE NEGATIV E [facility] LongviewUrine Jltprbo6678-01-60 05:22:00* Test Item Value Reference Range Interpretation Comments Urine Nitrite (test code = 36060-2) NEGATIVE NEGATIVE [facility] LongviewUrine Hjxcbsc3609-85-12 05:22:00* Test Item Value Reference Range Interpretation Comments Urine Protein (test code = 16308-0) 2+ NEGATIVE H [facility] LongviewUrine Glucose (UA)2019-01-28 05:22:00* Test Item Value Reference Range Interpretation Comments Urine Glucose (UA) (test code = 41157-6) 3+ NEGATIVE [facility] LongviewUrine Grtkeki0015-49-51 05:22:00* Test Item Value Reference Range Interpretation Comments Urine Ketones (test code = 79967-6) NEGATIVE NEGATIVE [facility]viewUrine Jroezzeyevgc5284-07-01 05:22:00* Test Item Value Reference Range Interpretation Comments Urine Urobilinogen (test code = 96072-8) 0.2 0.2-1 [facility]viewUrine Vfubkpclz1122-97-33 05:22:00* Test Item Value Reference Range Interpretation Comments Urine Bilirubin (test code = 1977-8) NEGATIVE NEGATIVE [facility] Gjndv2607-39-15 05:22:00* Test Item Value Reference Range Interpretation Comments Urine Blood (test code = 93340-3) 1+ NEGATIVE [facility] Mmnuo4444-16-52 05:22:00* Test Item Value Reference Range Interpretation Comments Urine Color (test code = 5778-6) YELLOW YELLOW [facility]viewUrine Pbqtijn3212-46-47 05:22:00* Test Item Value Reference Range Interpretation Comments Urine Clarity (test code = 09561-1) CLEAR CLEAR [facility] LongviewUrine Specific Tciqrqp0707-83-20 05:22:00 * Test Item Value Reference Range Interpretation Comments Urine Specific [place] (test code = 5811-5) 1.015 1.010-1.02 5 [facility] LongviewUrine nY1615-12-24 05:22:00* Test Item Value Reference Range Interpretation Comments Urine pH (test code = 58381-6) 6 5-7 [facility]viewUrine Leukocyte Ihkivqqj1706-60-36 05:22:00* Test Item Value Reference Range Interpretation Comments Urine Leukocyte Esterase (test code = 65186-2) NEGATIVE NEGATIV E [facility]viewUrine Vmrhwbw5055-71-56 05:22:00* Test Item Value Reference Range Interpretation Comments Urine Nitrite (test code = 63538-2) NEGATIVE NEGATIVE [facility]viewUrine Ttvjhzy9306-60-87 05:22:00* Test Item Value Reference Range Interpretation Comments Urine Protein (test code = 91822-9) 2+ NEGATIVE H [facility] LongviewUrine Glucose (UA)2019-01-28 05:22:00* Test Item Value Reference Range Interpretation Comments Urine Glucose (UA) (test code = 82023-2) 3+ NEGATIVE [facility]viewUrine Wkgdrwe6519-61-67 05:22:00* Test Item Value Reference Range Interpretation Comments Urine Ketones (test code = 87667-5) NEGATIVE NEGATIVE [facility]viewUrine Snnjyifxgorm8120-16-79 05:22:00* Test Item Value Reference Range Interpretation Comments Urine Urobilinogen (test code = 00176-7) 0.2 0.2-1 [facility]viewUrine Tlkvpymgx3378-19-57 05:22:00* Test Item Value Reference Range Interpretation Comments Urine Bilirubin (test code = 1977-8) NEGATIVE NEGATIVE [facility] LongviewUrine Jgooq4466-82-98 05:22:00* Test Item Value Reference Range Interpretation Comments Urine Blood (test code = 75273-0) 1+ NEGATIVE [facility]viewCHEST SINGLE (PORTABLE)2019-01-28 04:12:00 [facility] [address] [place] [address] Patient Name: TONEY NAVA MR #: [id number] : 1940 Age/Sex: 78/M Req #: [id number] Adm Physician: Ordered by: TOM HERRERA MD Report #: [id number] Location: ER Room/Bed: Procedure: [id number] DX/CHEST [...] 01/28/19416 COPY TO: TOM HERRERA MD Blood Kqtunff8956-61-84 09:45:00* Test Item Value Reference Range Interpretation Comments Blood Culture (test code = 01064633) NO GROWTH AFTER 48 HOURS [facility] LongviewBedside Gkhpton0363-62-23 08:12:00* Test Item Value Reference Range Interpretation Comments Bedside Glucose (test code = 10580-4) 208 70-120 H Meter ID: [id number] [facility]Blood [facility] 2018-12-17 08:01:00* Test Item Value Reference Range Interpretation Comments Blood Culture (test code = 600-7) Organism: STAPHYLOCOCCUS SP COAG NEG [facility] LongviewWhite Blood Vbhqg5325-82-45 06:35:00* Test Item Value Reference Range Interpretation Comments White Blood Count (test code = 6690-2) 10.45 4.8-10.8 [facility] LongviewRed Blood Gohxo2421-87-09 06:35:00* Test Item Value Reference Range Interpretation Comments Red Blood Count (test code = 789-8) 4.17 4.3-5.7 L [facility] LongviewHemoglobin2019-08-23 06:35:00* Test Item Value Reference Range Interpretation Comments Hemoglobin (test code = 52894-8) 11.5 14.0-18.0 L [facility] LongviewHematocrit2019-08-23 06:35:00* Test Item Value Reference Range Interpretation Comments Hematocrit (test code = 4544-3) 36.7 38.2-49.6 L [facility] LongviewMean Corpuscular Iioytg5718-08-26 06:35:00* Test Item Value Reference Range Interpretation Comments Mean Corpuscular Volume (test code = 787-2) 88.0 81-99 [facility] LongviewMean Corpuscular Lqtaxsuafy2291-87-55 06:35:00* Test Item Value Reference Range Interpretation Comments Mean Corpuscular Hemoglobin (test code = 785-6) 27.6 28-32 L [facility] LongviewMean Corpuscular Hemoglobin Concent 2018-12-16 06:35:00* Test Item Value Reference Range Interpretation Comments Mean Corpuscular Hemoglobin Concent (test code = 786-4) 31.3 31-35 [facility] LongviewRed Cell Distribution Wljeh7112-35-18 06:35:00* Test Item Value Reference Range Interpretation Comments Red Cell Distribution Width (test code = 77954-3) 14.9 11.7 -14.4 H [facility] LongviewPlatelet Joiwl7241-19-35 06:35:00* Test Item Value Reference Range Interpretation Comments Platelet Count (test code = 777-3) 132 140-360 L [facility] LongviewNeutrophils (%) (Auto)2018-12-16 06:35:00 * Test Item Value Reference Range Interpretation Comments Neutrophils (%) (Auto) (test code = 38050-0) 71.2 38.7-80.0 [facility] LongviewLymphocytes (%) (Auto)2018-12-16 06:35:00 * Test Item Value Reference Range Interpretation Comments Lymphocytes (%) (Auto) (test code = 736-9) 14.5 18.0-39.1 L [facility] LongviewMonocytes (%) (Auto)2018-12-16 06:35:00* Test Item Value Reference Range Interpretation Comments Monocytes (%) (Auto) (test code = 5905-5) 9.0 4.4-11.3 [facility] LongviewEosinophils (%) (Auto)2018-12-16 06:35:00 * Test Item Value Reference Range Interpretation Comments Eosinophils (%) (Auto) (test code = 713-8) 4.6 0.0-6.0 [facility] LongviewBasophils (%) (Auto)2018-12-16 06:35:00* Test Item Value Reference Range Interpretation Comments Basophils (%) (Auto) (test code = 706-2) 0.3 0.0-1.0 [facility] LongviewIM GRANULOCYTES %2018-12-16 06:35:00* Test Item Value Reference Range Interpretation Comments IM GRANULOCYTES % (test code = IM GRANULOCYTES %) 0.4 0.0- 1.0 [facility] LongviewNeutrophils # (Auto)2018-12-16 06:35:00* Test Item Value Reference Range Interpretation Comments Neutrophils # (Auto) (test code = 751-8) 7.4 2.1-6.9 H [facility] LongviewLymphocytes # (Auto)2018-12-16 06:35:00* Test Item Value Reference Range Interpretation Comments Lymphocytes # (Auto) (test code = 16189-2) 1.5 1.0-3.2 [facility] LongviewMonocytes # (Auto)2018-12-16 06:35:00* Test Item Value Reference Range Interpretation Comments Monocytes # (Auto) (test code = 742-7) 0.9 0.2-0.8 H [facility] LongviewEosinophils # (Auto)2018-12-16 06:35:00* Test Item Value Reference Range Interpretation Comments Eosinophils # (Auto) (test code = 711-2) 0.5 0.0-0.4 H [facility] LongviewBasophils # (Auto)2018-12-16 06:35:00* Test Item Value Reference Range Interpretation Comments Basophils # (Auto) (test code = 704-7) 0.0 0.0-0.1 [facility] LongviewAbsolute Immature Granulocyte (auto 2018-12-16 06:35:00* Test Item Value Reference Range Interpretation Comments Absolute Immature Granulocyte (auto (jeyson t code = Absolute Immature Granulocyte (auto) 0.04 0-0.1 [facility] Brownwoododium Grpnj7605-81-15 05:50:00* Test Item Value Reference Range Interpretation Comments Sodium Level (test code = 2951-2) 138 136-145 [facility] LongviewPotassium Teoxw1448-20-84 05:50:00* Test Item Value Reference Range Interpretation Comments Potassium Level (test code = 2823-3) 3.6 3.5-5.1 [facility] LongviewChloride Ldnwb7332-14-33 05:50:00* Test Item Value Reference Range Interpretation Comments Chloride Level (test code = 2075-0) 95 98-107 L [facility] LongviewCarbon Dioxide Xzprv9060-95-21 05:50:00* Test Item Value Reference Range Interpretation Comments Carbon Dioxide Level (test code = 2028-9) 31 22-29 H [facility] LongviewAnion Oft4799-78-93 05:50:00* Test Item Value Reference Range Interpretation Comments Anion Gap (test code = 72232-2) 15.6 8-16 [facility] LongviewBlood Urea Mwqtdefl9781-56-26 05:50:00* Test Item Value Reference Range Interpretation Comments Blood Urea Nitrogen (test code = 3094-0) 31 7-26 H [facility] LongviewCreatinine2019-08-23 05:50:00* Test Item Value Reference Range Interpretation Comments Creatinine (test code = 2160-0) 1.69 0.72-1.25 H [facility] LongviewBUN/Creatinine Rfhzc5910-64-17 05:50:00* Test Item Value Reference Range Interpretation Comments BUN/Creatinine Ratio (test code = 3097-3) 18 6-25 [facility] LongviewEstimat Glomerular Filtration Rate 2018-12-16 05:50:00* Test Item Value Reference Range Interpretation Comments Estimat Glomerular Filtration Rate (test code = 501269671) 39 >60 L Ranges were taken from the National Kidney Disease Education Program and the [facility] literature.Reference ranges:60 or greater: Aoncwf69-56 ( for 3 consecutive months): Chronic kidney disease 15 or less: Kidney failureCHRIST[facility] – LongviewGlucose Fqbuv4595-69-83 05:50:00* Test Item Value Reference Range Interpretation Comments Glucose Level (test code = NSQ8258) 174 74-118 H [facility] LongviewCalcium Frrkk7362-67-12 05:50:00* Test Item Value Reference Range Interpretation Comments Calcium Level (test code = 24996-2) 8.4 8.4-10.2 [facility] LongviewProthrombin Lxsz3713-29-88 05:48:00* Test Item Value Reference Range Interpretation Comments Prothrombin Time (test code = 5902-2) 20.9 11.9-14.5 H [facility] LongviewProthromb Time International Ratio 2018-12-16 05:48:00* Test Item Value Reference Range Interpretation Comments Prothromb Time International Ratio (test code = 6301-6) 1.73 Oral Anticoagulant Therapy INR Values:1. Low Intensity Therapy 1.5 - 2.02 . Moderate Intensity Therapy 2.0 - 3.03. High Intensity Therapy(1) 2.5 - 3. 54. High Intensity Therapy(2) 3.0 - 4.05. Panic Value INR > 5.0 [facility] LongviewCreatine Kinase IL9153-15-87 14:53:00* Test Item Value Reference Range Interpretation Comments Creatine Kinase MB (test code = 77049-6) 6.80 0-5.0 H [facility] LongviewTroponin M7732-96-44 14:53:00* Test Item Value Reference Range Interpretation Comments Troponin I (test code = RVR4566) 0.027 0-0.300 [facility] LongviewCreatine Rtwmoy1606-47-98 14:51:00* Test Item Value Reference Range Interpretation Comments Creatine Kinase (test code = 2157-6) 421 30-200 H [facility] LongviewTotal Kgkujmhvc7971-54-80 07:42:00* Test Item Value Reference Range Interpretation Comments Total Bilirubin (test code = 1975-2) 0.7 0.2-1.2 [facility] LongviewAspartate Amino Transf (AST/SGOT) 2018-12-15 07:42:00* Test Item Value Reference Range Interpretation Comments Aspartate Amino Transf (AST/SGOT) (test code = Aspartate Amino Transf (AST/SGOT)) 17 5-34 [facility] LongviewAlanine Aminotransferase (ALT/SGPT) 2018-12-15 07:42:00* Test Item Value Reference Range Interpretation Comments Alanine Aminotransferase (ALT/SGPT) (test code = 1742-6) 11 0-55 [facility] LongviewTotal Nivpzcd3734-79-72 07:42:00* Test Item Value Reference Range Interpretation Comments Total Protein (test code = 2885-2) 6.1 6.5-8.1 L [facility] LongviewAlbumin2019-08-22 07:42:00* Test Item Value Reference Range Interpretation Comments Albumin (test code = 1751-7) 3.1 3.5-5.0 L [facility] LongviewGlobulin2019-08-22 07:42:00* Test Item Value Reference Range Interpretation Comments Globulin (test code = 61619-2) 3.0 2.3-3.5 [facility] LongviewAlbumin/Globulin Uixkc2016-05-51 07:42:00 * Test Item Value Reference Range Interpretation Comments Albumin/Globulin Ratio (test code = 1759-0) 1.0 0.8-2.0 [facility] LongviewAlkaline Wtcrfdqlwnk9376-36-05 07:42:00* Test Item Value Reference Range Interpretation Comments Alkaline Phosphatase (test code = 6768-6) 73 40-150 [facility] LongviewLOWER LEG FOOKK9871-12-15 14:24:00 [facility] [address] [place] [address] Patient Name: TONEY NAVA MR #: [id number] : 1940 Age/Sex: 78/M Req #: [id number] Adm Physician: Ordered by: RICHARD PONCE MD Report #: [id number] Location: ER Room/Bed: Procedure: [id number] DX/LOWER LEG RIGHT Exam Date: Exam Time: [...] PM Dic tated By: ANAND CRUM MD 142 COPY TO: RICHARD PONCE MD B-Type Natriuretic Jmafsnn5802-89-47 14:13:00* Test Item Value Reference Range Interpretation Comments B-Type Natriuretic Peptide (test code = 17192-7) 66.7 0-100 [facility] LongviewLactic Acid Ubjjk9348-86-91 13:58:00* Test Item Value Reference Range Interpretation Comments Lactic Acid Level (test code = Lactic Acid Level) 18.5 4.5- 19.8 [facility] LongviewBedside Vpniint4965-88-01 07:55:00* Test Item Value Reference Range Interpretation Comments Bedside Glucose (test code = 63399-6) 353 70-120 H Meter ID: [id number] [facility] SystemBlood Culture 2018-08-12 15:34:00* Test Item Value Reference Range Interpretation Comments Blood Culture (test code = 62219184) NO GROWTH AFTER 48 HOURS [facility] LongviewProthrombin Qndc6489-81-91 07:10:00* Test Item Value Reference Range Interpretation Comments Prothrombin Time (test code = 5902-2) 22.4 11.9-14.5 H [facility] LongviewProthromb Time International Ratio 2018-08-12 07:10:00* Test Item Value Reference Range Interpretation Comments Prothromb Time International Ratio (test code = 6301-6) 1.89 Oral Anticoagulant Therapy INR Values:1. Low Intensity Therapy 1.5 - 2.02 . Moderate Intensity Therapy 2.0 - 3.03. High Intensity Therapy(1) 2.5 - 3. 54. High Intensity Therapy(2) 3.0 - 4.05. Panic Value INR > 5.0 [facility]woododium Ypink9415-84-01 07:04:00* Test Item Value Reference Range Interpretation Comments Sodium Level (test code = 2951-2) 143 136-145 [facility]Potassium Njfkx7507-09-61 07:04:00* Test Item Value Reference Range Interpretation Comments Potassium Level (test code = 2823-3) 4.0 3.5-5.1 [facility]viewChloride Gytih1268-25-46 07:04:00* Test Item Value Reference Range Interpretation Comments Chloride Level (test code = 2075-0) 101 98-107 [facility] LongviewCarbon Dioxide Rlztc0841-40-28 07:04:00* Test Item Value Reference Range Interpretation Comments Carbon Dioxide Level (test code = 2028-9) 30 22-29 H [facility] LongviewAnion Ftu5320-23-71 07:04:00* Test Item Value Reference Range Interpretation Comments Anion Gap (test code = 88329-0) 16.0 8-16 [facility] LongviewBlood Urea Bujwxhrk9542-54-84 07:04:00* Test Item Value Reference Range Interpretation Comments Blood Urea Nitrogen (test code = 3094-0) 44 7-26 H [facility] LongviewCreatinine2019-04-19 07:04:00* Test Item Value Reference Range Interpretation Comments Creatinine (test code = 2160-0) 1.89 0.72-1.25 H [facility]viewBUN/Creatinine Adbwv6406-18-18 07:04:00* Test Item Value Reference Range Interpretation Comments BUN/Creatinine Ratio (test code = 3097-3) 23 6-25 [facility] LongviewEstimat Glomerular Filtration Rate 2018-08-12 07:04:00* Test Item Value Reference Range Interpretation Comments Estimat Glomerular Filtration Rate (test code = 181305994) 34 >60 L Ranges were taken from the National Kidney Disease Education Program and the [facility] Kidney Foundation literature.Reference ranges:60 or greater: Bnynow00-44 ( for 3 consecutive months): Chronic kidney disease 15 or less: Kidney failureCHRISTUS [facility] – LongviewGlucose Sjkuv2991-97-21 07:04:00* Test Item Value Reference Range Interpretation Comments Glucose Level (test code = DYE6585) 271 74-118 H [facility] LongviewCalcium Hdubu2055-80-78 07:04:00* Test Item Value Reference Range Interpretation Comments Calcium Level (test code = 42843-4) 8.7 8.4-10.2 [facility] LongviewWhite Blood Agahg9914-77-24 06:57:00* Test Item Value Reference Range Interpretation Comments White Blood Count (test code = 6690-2) 9.79 4.8-10.8 [facility] LongviewRed Blood Rrpoo1405-10-63 06:57:00* Test Item Value Reference Range Interpretation Comments Red Blood Count (test code = 789-8) 4.54 4.3-5.7 [facility]viewHemoglobin2019-04-19 06:57:00* Test Item Value Reference Range Interpretation Comments Hemoglobin (test code = 20524-8) 12.8 14.0-18.0 L [facility] LongviewHematocrit2019-04-19 06:57:00* Test Item Value Reference Range Interpretation Comments Hematocrit (test code = 4544-3) 40.0 38.2-49.6 [facility] LongviewMean Corpuscular Ghkyyv5092-79-36 06:57:00* Test Item Value Reference Range Interpretation Comments Mean Corpuscular Volume (test code = 787-2) 88.1 81-99 [facility]viewMean Corpuscular Iofstuxjdi5366-72-60 06:57:00* Test Item Value Reference Range Interpretation Comments Mean Corpuscular Hemoglobin (test code = 785-6) 28.2 28-32 [facility] LongviewMean Corpuscular Hemoglobin Concent 2018-08-12 06:57:00* Test Item Value Reference Range Interpretation Comments Mean Corpuscular Hemoglobin Concent (test code = 786-4) 32.0 31-35 [facility] LongviewRed Cell Distribution Bxecx4458-75-57 06:57:00* Test Item Value Reference Range Interpretation Comments Red Cell Distribution Width (test code = 78312-1) 14.2 11.7 -14.4 [facility] LongviewPlatelet Bplim8442-49-65 06:57:00* Test Item Value Reference Range Interpretation Comments Platelet Count (test code = 777-3) 161 140-360 [facility] LongviewNeutrophils (%) (Auto)2018-08-12 06:57:00 * Test Item Value Reference Range Interpretation Comments Neutrophils (%) (Auto) (test code = 17032-0) 64.2 38.7-80.0 [facility] LongviewLymphocytes (%) (Auto)2018-08-12 06:57:00 * Test Item Value Reference Range Interpretation Comments Lymphocytes (%) (Auto) (test code = 736-9) 20.4 18.0-39.1 [facility]viewMonocytes (%) (Auto)2018-08-12 06:57:00* Test Item Value Reference Range Interpretation Comments Monocytes (%) (Auto) (test code = 5905-5) 9.8 4.4-11.3 [facility]viewEosinophils (%) (Auto)2018-08-12 06:57:00 * Test Item Value Reference Range Interpretation Comments Eosinophils (%) (Auto) (test code = 713-8) 4.6 0.0-6.0 [facility]viewBasophils (%) (Auto)2018-08-12 06:57:00* Test Item Value Reference Range Interpretation Comments Basophils (%) (Auto) (test code = 706-2) 0.5 0.0-1.0 [facility] LongviewIM GRANULOCYTES %2018-08-12 06:57:00* Test Item Value Reference Range Interpretation Comments IM GRANULOCYTES % (test code = IM GRANULOCYTES %) 0.5 0.0- 1.0 [facility] LongviewNeutrophils # (Auto)2018-08-12 06:57:00* Test Item Value Reference Range Interpretation Comments Neutrophils # (Auto) (test code = 751-8) 6.3 2.1-6.9 [facility] LongviewLymphocytes # (Auto)2018-08-12 06:57:00* Test Item Value Reference Range Interpretation Comments Lymphocytes # (Auto) (test code = 52061-3) 2.0 1.0-3.2 [facility]viewMonocytes # (Auto)2018-08-12 06:57:00* Test Item Value Reference Range Interpretation Comments Monocytes # (Auto) (test code = 742-7) 1.0 0.2-0.8 H [facility] LongviewEosinophils # (Auto)2018-08-12 06:57:00* Test Item Value Reference Range Interpretation Comments Eosinophils # (Auto) (test code = 711-2) 0.5 0.0-0.4 H [facility] LongviewBasophils # (Auto)2018-08-12 06:57:00* Test Item Value Reference Range Interpretation Comments Basophils # (Auto) (test code = 704-7) 0.1 0.0-0.1 [facility] LongviewAbsolute Immature Granulocyte (auto 2018-08-12 06:57:00* Test Item Value Reference Range Interpretation Comments Absolute Immature Granulocyte (auto (jeyson t code = Absolute Immature Granulocyte (auto) 0.05 0-0.1 [facility] LongviewLactic Acid Oypct7292-37-44 17:36:00* Test Item Value Reference Range Interpretation Comments Lactic Acid Level (test code = Lactic Acid Level) 17.4 4.5- 19.8 [facility] LongviewTotal Uarmjgwov5682-04-26 17:35:00* Test Item Value Reference Range Interpretation Comments Total Bilirubin (test code = 1975-2) 0.6 0.2-1.2 [facility] LongviewAspartate Amino Transf (AST/SGOT) 2018-08-10 17:35:00* Test Item Value Reference Range Interpretation Comments Aspartate Amino Transf (AST/SGOT) (test code = Aspartate Amino Transf (AST/SGOT)) 19 5-34 [facility] LongviewAlanine Aminotransferase (ALT/SGPT) 2018-08-10 17:35:00* Test Item Value Reference Range Interpretation Comments Alanine Aminotransferase (ALT/SGPT) (test code = 1742-6) 22 0-55 [facility] LongviewTotal Gxrrlkz4614-12-06 17:35:00* Test Item Value Reference Range Interpretation Comments Total Protein (test code = 2885-2) 7.2 6.5-8.1 [facility] LongviewGlobulin2019-04-17 17:35:00* Test Item Value Reference Range Interpretation Comments Globulin (test code = 50201-5) 3.9 2.3-3.5 H [facility] LongviewAlbumin/Globulin Dleon8791-14-98 17:35:00 * Test Item Value Reference Range Interpretation Comments Albumin/Globulin Ratio (test code = 1759-0) 0.8 0.8-2.0 [facility] LongviewAlkaline Ucahqmameow2964-67-92 17:35:00* Test Item Value Reference Range Interpretation Comments Alkaline Phosphatase (test code = 6768-6) 92 40-150 [facility] LongviewMagnesium Pvakr4087-92-03 17:27:00* Test Item Value Reference Range Interpretation Comments Magnesium Level (test code = 06695-3) 2.4 1.3-2.1 H [facility] LongviewAlbumin2019-04-17 17:27:00* Test Item Value Reference Range Interpretation Comments Albumin (test code = 1751-7) 3.3 3.5-5.0 L [facility] LongviewMagnesium Wbreh2768-70-54 17:27:00* Test Item Value Reference Range Interpretation Comments Magnesium Level (test code = 53513-5) 2.4 1.3-2.1 H [facility] LongviewLOWER LEG TDDUO4345-74-70 15:57:00 [facility] [address] [address] Patient Name: TONEY NAVA MR #: [id number] : 1940 Age/Sex: 78/M Req #: [id number] Adm Physician: Ordered by: NATALIE HENNING [employer] Report #: [id number] Location: ER Room/Bed: Procedure: [id number] DX/LOWER LEG RIGHT Exam Date: 08/10/18 Exam [...] 4:01 PM Dictated By: RONALD SAVAGE MD 1601 Transcribed By: ANAT on 08/10/18 1601 COPY TO: NATALIE HENNING [employer] Bedside Mpefwiv0398-77-77 12:19:00* Test Item Value Reference Range Interpretation Comments Bedside Glucose (test code = 53003-6) 131 70-120 H Meter ID: [id number] Medical Center Brownwoododium Level 2018-06-13 05:47:00* Test Item Value Reference Range Interpretation Comments Sodium Level (test code = 2951-2) 138 136-145 [facility] LongviewPotassium Xzmcg9790-82-50 05:47:00* Test Item Value Reference Range Interpretation Comments Potassium Level (test code = 2823-3) 3.4 3.5-5.1 L [facility] LongviewChloride Qeraj3786-34-27 05:47:00* Test Item Value Reference Range Interpretation Comments Chloride Level (test code = 2075-0) 94 98-107 L [facility] LongviewCarbon Dioxide Djdyi2919-87-64 05:47:00* Test Item Value Reference Range Interpretation Comments Carbon Dioxide Level (test code = 2028-9) 31 22-29 H [facility] LongviewAnion Xnv8943-10-29 05:47:00* Test Item Value Reference Range Interpretation Comments Anion Gap (test code = 22679-9) 16.4 8-16 H [facility] LongviewBlood Urea Llzghxnt5311-15-38 05:47:00* Test Item Value Reference Range Interpretation Comments Blood Urea Nitrogen (test code = 3094-0) 31 7-26 H [facility] LongviewCreatinine2019-02-18 05:47:00* Test Item Value Reference Range Interpretation Comments Creatinine (test code = 2160-0) 1.63 0.72-1.25 H [facility] LongviewBUN/Creatinine Ubdxh3635-54-59 05:47:00* Test Item Value Reference Range Interpretation Comments BUN/Creatinine Ratio (test code = 3097-3) 19 6-25 [facility] LongviewEstimat Glomerular Filtration Rate 2018-06-13 05:47:00* Test Item Value Reference Range Interpretation Comments Estimat Glomerular Filtration Rate (test code = 461570756) 41 >60 L Ranges were taken from the National Kidney Disease Education Program and the [facility] Kidney Foundation literature.Reference ranges:60 or greater: Tcmcne27-24 ( for 3 consecutive months): Chronic kidney disease 15 or less: Kidney failureCHRISTUS Good Shepherd [facility] – LongviewGlucose Uzmml1475-43-20 05:47:00* Test Item Value Reference Range Interpretation Comments Glucose Level (test code = QSL3321) 175 74-118 H [facility] LongviewCalcium Nsrtx5119-91-03 05:47:00* Test Item Value Reference Range Interpretation Comments Calcium Level (test code = 33933-9) 8.2 8.4-10.2 L [facility] LongviewTotal Rivugkafl6812-32-74 05:47:00* Test Item Value Reference Range Interpretation Comments Total Bilirubin (test code = 1975-2) 0.5 0.2-1.2 [facility] LongviewAspartate Amino Transf (AST/SGOT) 2018-06-13 05:47:00* Test Item Value Reference Range Interpretation Comments Aspartate Amino Transf (AST/SGOT) (test code = Aspartate Amino Transf (AST/SGOT)) 22 5-34 [facility] LongviewAlanine Aminotransferase (ALT/SGPT) 2018-06-13 05:47:00* Test Item Value Reference Range Interpretation Comments Alanine Aminotransferase (ALT/SGPT) (test code = 1742-6) 19 0-55 [facility] LongviewTotal Lnpereq9879-64-45 05:47:00* Test Item Value Reference Range Interpretation Comments Total Protein (test code = 2885-2) 6.1 6.5-8.1 L [facility] LongviewAlbumin2019-02-18 05:47:00* Test Item Value Reference Range Interpretation Comments Albumin (test code = 1751-7) 2.9 3.5-5.0 L [facility] LongviewGlobulin2019-02-18 05:47:00* Test Item Value Reference Range Interpretation Comments Globulin (test code = 88815-0) 3.2 2.3-3.5 [facility] LongviewAlbumin/Globulin Unozo0113-88-41 05:47:00 * Test Item Value Reference Range Interpretation Comments Albumin/Globulin Ratio (test code = 1759-0) 0.9 0.8-2.0 [facility] LongviewAlkaline Uplmjnbkqgl4774-50-29 05:47:00* Test Item Value Reference Range Interpretation Comments Alkaline Phosphatase (test code = 6768-6) 57 40-150 [facility] LongviewProthrombin Mjlj1735-17-31 05:38:00* Test Item Value Reference Range Interpretation Comments Prothrombin Time (test code = 5902-2) 19.2 11.9-14.5 H [facility] LongviewProthromb Time International Ratio 2018-06-13 05:38:00* Test Item Value Reference Range Interpretation Comments Prothromb Time International Ratio (test code = 6301-6) 1.48 Oral Anticoagulant Therapy INR Values:1. Low Intensity Therapy 1.5 - 2.02 . Moderate Intensity Therapy 2.0 - 3.03. High Intensity Therapy(1) 2.5 - 3. 54. High Intensity Therapy(2) 3.0 - 4.05. Panic Value INR > 5.0 [facility] LongviewWhite Blood Rgdac8985-01-54 05:19:00* Test Item Value Reference Range Interpretation Comments White Blood Count (test code = 6690-2) 8.65 4.8-10.8 [facility] LongviewRed Blood Sjdmm8482-62-83 05:19:00* Test Item Value Reference Range Interpretation Comments Red Blood Count (test code = 789-8) 4.10 4.3-5.7 L [facility] LongviewHemoglobin2019-02-18 05:19:00* Test Item Value Reference Range Interpretation Comments Hemoglobin (test code = 54578-9) 11.9 14.0-18.0 L [facility] LongviewHematocrit2019-02-18 05:19:00* Test Item Value Reference Range Interpretation Comments Hematocrit (test code = 4544-3) 35.9 38.2-49.6 L [facility] LongviewMean Corpuscular Zqionn1305-64-14 05:19:00* Test Item Value Reference Range Interpretation Comments Mean Corpuscular Volume (test code = 787-2) 87.6 81-99 [facility] LongviewMean Corpuscular Qhjswzaryj4391-56-82 05:19:00* Test Item Value Reference Range Interpretation Comments Mean Corpuscular Hemoglobin (test code = 785-6) 29.0 28-32 [facility] Corpuscular Hemoglobin Concent 2018-06-13 05:19:00* Test Item Value Reference Range Interpretation Comments Mean Corpuscular Hemoglobin Concent (test code = 786-4) 33.1 31-35 [facility] LongviewRed Cell Distribution Jlssy7264-39-64 05:19:00* Test Item Value Reference Range Interpretation Comments Red Cell Distribution Width (test code = 61505-5) 13.9 11.7 -14.4 [facility] LongviewPlatelet Vvrjo1991-34-57 05:19:00* Test Item Value Reference Range Interpretation Comments Platelet Count (test code = 777-3) 169 140-360 [facility] LongviewNeutrophils (%) (Auto)2018-06-13 05:19:00 * Test Item Value Reference Range Interpretation Comments Neutrophils (%) (Auto) (test code = 92929-9) 63.7 38.7-80.0 [facility] LongviewLymphocytes (%) (Auto)2018-06-13 05:19:00 * Test Item Value Reference Range Interpretation Comments Lymphocytes (%) (Auto) (test code = 736-9) 20.7 18.0-39.1 [facility] LongviewMonocytes (%) (Auto)2018-06-13 05:19:00* Test Item Value Reference Range Interpretation Comments Monocytes (%) (Auto) (test code = 5905-5) 9.4 4.4-11.3 [facility] LongviewEosinophils (%) (Auto)2018-06-13 05:19:00 * Test Item Value Reference Range Interpretation Comments Eosinophils (%) (Auto) (test code = 713-8) 5.4 0.0-6.0 [facility] LongviewBasophils (%) (Auto)2018-06-13 05:19:00* Test Item Value Reference Range Interpretation Comments Basophils (%) (Auto) (test code = 706-2) 0.5 0.0-1.0 [facility] LongviewIM GRANULOCYTES %2018-06-13 05:19:00* Test Item Value Reference Range Interpretation Comments IM GRANULOCYTES % (test code = IM GRANULOCYTES %) 0.3 0.0- 1.0 [facility] LongviewNeutrophils # (Auto)2018-06-13 05:19:00* Test Item Value Reference Range Interpretation Comments Neutrophils # (Auto) (test code = 751-8) 5.5 2.1-6.9 [facility] LongviewLymphocytes # (Auto)2018-06-13 05:19:00* Test Item Value Reference Range Interpretation Comments Lymphocytes # (Auto) (test code = 85860-6) 1.8 1.0-3.2 [facility] LongviewMonocytes # (Auto)2018-06-13 05:19:00* Test Item Value Reference Range Interpretation Comments Monocytes # (Auto) (test code = 742-7) 0.8 0.2-0.8 [facility]viewEosinophils # (Auto)2018-06-13 05:19:00* Test Item Value Reference Range Interpretation Comments Eosinophils # (Auto) (test code = 711-2) 0.5 0.0-0.4 H [facility] LongviewBasophils # (Auto)2018-06-13 05:19:00* Test Item Value Reference Range Interpretation Comments Basophils # (Auto) (test code = 704-7) 0.0 0.0-0.1 [facility] LongviewAbsolute Immature Granulocyte (auto 2018-06-13 05:19:00* Test Item Value Reference Range Interpretation Comments Absolute Immature Granulocyte (auto (jeyson t code = Absolute Immature Granulocyte (auto) 0.03 0-0.1 [facility] LongviewBlood Uyurmys5403-45-05 14:03:00* Test Item Value Reference Range Interpretation Comments Blood Culture (test code = 32680465) NO GROWTH AFTER 5 DAYS, FINAL REPORT [facility] Occult Hwyhk2116-59-66 13:53:00* Test Item Value Reference Range Interpretation Comments Stool Occult Blood (test code = 2335-8) NEGATIVE NEGATIVE [facility] Occult Ojidt5144-27-41 13:53:00* Test Item Value Reference Range Interpretation Comments Stool Occult Blood (test code = 2335-8) NEGATIVE NEGATIVE [facility] Occult Acrab7131-01-52 13:53:00* Test Item Value Reference Range Interpretation Comments Stool Occult Blood (test code = 2335-8) NEGATIVE NEGATIVE [facility] Occult Wfpqo1951-81-76 13:53:00* Test Item Value Reference Range Interpretation Comments Stool Occult Blood (test code = 2335-8) NEGATIVE NEGATIVE [facility] Occult Ehrak8018-53-57 13:53:00* Test Item Value Reference Range Interpretation Comments Stool Occult Blood (test code = 2335-8) NEGATIVE NEGATIVE [facility] LongviewNON-TUNNELLED CVC CATH ZHBPIWT2608-50-22 07:05:00 [address] [place] [address] Patient Name: TONEY NAVA MR #: [id number] : 1940 Age/Sex: 78/M Req #: [id number] Adm Physician: DENIS GRANADOS MD, ABI Ordered by: CARROLL LIMA MD Report #: [id number] Location: [facility] Room/Bed: [address] [address] Procedure: [id number] IR/NON-TUNNELLED CVC CATH PLACMNT Exam Date: Exam Time: REPORT STATUS: Signed Date and Time: 06/08/2018 Procedure: Central venous catheter placement 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 Savage Pre-operative diagnosis: Cellulitis, poor IV access Post-operative diagnosis: Cellulitis, poor IV access Conscious Se dation: None Additional Medications: Lidocaine 1% for local anesthesia Fl uoroscopy time: 0.2 minutes Dose-area Product: 5.31 Gycm2. Frontal Air Ker ma: 19.7 mGy Contrast used: None Estimated blood loss: Minimal Blood produ cts administered: None Specimens: None Implants: 7 Ivorian 16 cm triple-lumen central venous catheter DISCUSSION: [...] IMPRESSION: Successful placement o f a 7 Ivorian 16 cm triple-lumen central venous catheter by a right internal ju gular approach under sonographic and fluoroscopic guidance. Signed by: Dr Mirna Savage M.D. on 06/09/2018 7:08 AM Dictated By: RONALD SAVAGE MD 7 Transcribed By: JAIRO MCKEON on 06/09/18707 COPY TO: CARROLL LIMA MD US GUIDANCE FOR VASCULAR BWFCO1805-46-99 07:05:00 [address] [place] [address] Patient Name: TONEY NAVA MR #: [id number] : 1940 Age/Sex: 78/M Req #: [id number] Adm Physician: DENIS GRANADOS MD, [facility] Ordered by: DENIS GRANADOS MD Report #: [id number] Location: [facility] Room/Bed: [address] [address] Procedure: [id number] US/US GUIDANCE FOR VASCULAR ACCES Exam Date: 06/08/18 Exam Time: 2010 S TATUS: Signed Date and Time: 06/08/2018 Procedure: Central venous cathete r placement 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 Savage Pre-operative diagnosis: Cellu litis, poor IV access Post-operative diagnosis: Cellulitis, poor IV access Conscious Sedation: None Additional Medications: Lidocaine 1% for local a nesthesia Fluoroscopy time: 0.2 minutes Dose-area Product: 5.31 Gycm2. F rontal Air Kerma: 19.7 mGy Contrast used: None Estimated blood loss: Minimal Blood products administered: None Specimens: None Implants: 7 Ivorian 16 cm triple-lumen central venous catheter DISCUSSION: [...] tract was dilated . Then a 7 Ivorian, 16 cm triple-lumen central venous catheter was [...] IMPRESSION: Successf ul placement of a 7 Ivorian 16 cm triple-lumen central venous catheter by a rig ht internal jugular approach under sonographic and fluoroscopic guidance. Signed by: Dr. Ronald Savage M.D. on 06/09/2018 7:08 AM Dictated By: NETTE SAVAGE MD 0708 [place] scribed By: ANAT on 06/09/18 0708 COPY TO: DENIS GRANADOS MD, FELIPE CT ABDOMEN/PELVIS [id number] 22:21:00 [address] [address] Patient Name: TONEY NAVA MR #: [id number] : 1940 Age/Sex: 78/M Req #: [id number] Adm Physician: DENIS GRANADOS MD, FELIPE Ordered by: CARROLL LIMA MD Report #: [id number] Location: [facility] Room/Bed: [address] [address] Procedure: [id number] [id number] CT/CT ABDOMEN/PELVIS WO Exam [...] 2229 COPY TO: CARROLL LIMA MD Immunoglobulin [id number] 11:04:00* Test Item Value Reference Range Interpretation Comments Immunoglobulin A (test code = 2458-8) 217 46-437 [facility] LongviewImmunoglobulin O0239-25-01 11:04:00* Test Item Value Reference Range Interpretation Comments Immunoglobulin G (test code = 2465-3) 549 687-3923 [facility] LongviewImmunoglobulin X9898-83-17 11:04:00* Test Item Value Reference Range Interpretation Comments Immunoglobulin M (test code = 2472-9) 127 15-143 Performed at: [address] [id number] Director: Ren Hoyos MD, Phone: [phone] [facility] LongviewImmunoglobulin [id number] 11:04:00* Test Item Value Reference Range Interpretation Comments Immunoglobulin A (test code = 2458-8) [address]Immunoglobulin N3976-52-80 11:04:00* Test Item Value Reference Range Interpretation Comments Immunoglobulin G (test code = 2465-3) 556 875-4447 [facility] LongviewImmunoglobulin R1569-01-04 11:04:00* Test Item Value Reference Range Interpretation Comments Immunoglobulin M (test code = 2472-9) 127 15-143 Performed at: [address] [id number] Director: Rne Hoyos MD, Phone: [phone] [facility] LongviewImmunoglobulin [id number] 11:04:00* Test Item Value Reference Range Interpretation Comments Immunoglobulin A (test code = 2458-8) 217 [address] [place], [place] [address]Immunoglobulin A1227-93-41 11:04:00* Test Item Value Reference Range Interpretation Comments Immunoglobulin G (test code = 2465-3) 135 357-1899 [facility]viewImmunoglobulin H4359-56-32 11:04:00* Test Item Value Reference Range Interpretation Comments Immunoglobulin M (test code = 2472-9) 127 15-143 Performed at: - [address] [id number] Director: Ren Hoyos MD, Phone: [phone] [facility] – LongviewImmunoglobulin O1580-71-06 11:04:00* Test Item Value Reference Range Interpretation Comments Immunoglobulin A (test code = 2458-8) 217 21-437 [facility]viewImmunoglobulin M3260-53-04 11:04:00* Test Item Value Reference Range Interpretation Comments Immunoglobulin G (test code = 2465-3) 155 967-7811 [facility]viewImmunoglobulin H1785-76-20 11:04:00* Test Item Value Reference Range Interpretation Comments Immunoglobulin M (test code = 2472-9) 127 15-143 Performed at: [address] [id number] Director: Ren Hoyos MD, Phone: [phone] [facility] – LongviewImmunoglobulin W7431-02-92 11:04:00* Test Item Value Reference Range Interpretation Comments Immunoglobulin A (test code = 2458-8) 217 61-437 [facility]viewImmunoglobulin D3195-48-96 11:04:00* Test Item Value Reference Range Interpretation Comments Immunoglobulin G (test code = 2465-3) 803 507-1797 [facility]viewImmunoglobulin S3099-51-03 11:04:00* Test Item Value Reference Range Interpretation Comments Immunoglobulin M (test code = 2472-9) 127 15-143 Performed at: [address] [id number] Director: Ren Hoyos MD, Phone: [phone] [facility] – LongviewBlood Qncrpjd1904-28-80 08:04:00* Test Item Value Reference Range Interpretation Comments Blood Culture (test code = 600-7) Organism: STREP AGALACTIAE GROUP B [facility]2019-02-13 08:04:00* Test Item Value Reference Range Interpretation Comments Blood Culture (test code = 600-7) Organism: STREP AGALACTIAE GROUP B [facility]2019-02-12 05:41:00* Test Item Value Reference Range Interpretation Comments Phosphorus Level (test code = ICR9908) 3.0 2.3-4.7 [facility]2019-02-12 05:41:00* Test Item Value Reference Range Interpretation Comments Magnesium Level (test code = 38390-0) 1.7 1.3-2.1 [facility]2019-02-12 05:41:00* Test Item Value Reference Range Interpretation Comments Phosphorus Level (test code = QDC7786) 3.0 2.3-4.7 [facility]2019-02-12 05:41:00* Test Item Value Reference Range Interpretation Comments Phosphorus Level (test code = HUZ6966) 3.0 2.3-4.7 [facility]2019-02-11 09:47:00* Test Item Value Reference Range Interpretation Comments Urine Culture (test code = 630-4) Organism: STREPTOCOCCUS GROUP C [facility]2019-02-11 09:47:00* Test Item Value Reference Range Interpretation Comments Urine Culture (test code = 630-4) Organism: STREPTOCOCCUS GROUP C [facility]2019-02-11 09:47:00* Test Item Value Reference Range Interpretation Comments Urine Culture (test code = 630-4) Organism: STREPTOCOCCUS GROUP C [facility]2019-02-11 09:47:00* Test Item Value Reference Range Interpretation Comments Urine Culture (test code = 630-4) No Result Data Provided [facility]2019-02-11 09:47:00* Test Item Value Reference Range Interpretation Comments Urine Culture (test code = 630-4) No Result Data Provided [facility] 05:59:00 [facility] [address] [address] Patient Name: TONEY NAVA MR #: [id number] : 1940 Age/Sex: 78/M Req #: [id number] Adm Physician: DENIS GRANADOS MD, ABIM Ordered by: DENIS GRANADOS MD Report #: [id number] Location: ICU Room/Bed: ICU [facility] Procedure: [id number] DX/CHEST SINGLE (PORTABLE) Exam [...] 0600 COPY TO: DENIS GRANADOS ABIM Free Vqnypjggn9971-96-76 17:47:00* Test Item Value Reference Range Interpretation Comments Free Thyroxine (test code = 3024-7) 0.95 0.9-1.8 [facility] LongviewThyroid Stimulating Hormone (TSH) 2018-06-05 17:47:00* Test Item Value Reference Range Interpretation Comments Thyroid Stimulating Hormone (TSH) (test code = 45151-4) 2.134 0.350-4.940 [facility] Nicjbwjgt9426-77-13 17:47:00* Test Item Value Reference Range Interpretation Comments Free Thyroxine (test code = 3024-7) 0.95 0.9-1.8 [facility]viewThyroid Stimulating Hormone (TSH) 2018-06-05 17:47:00* Test Item Value Reference Range Interpretation Comments Thyroid Stimulating Hormone (TSH) (test code = 15414-3) 2.134 0.350-4.940 [facility] Sxdfiegel9111-09-57 17:47:00* Test Item Value Reference Range Interpretation Comments Free Thyroxine (test code = 3024-7) 0.95 0.9-1.8 [facility]viewThyroid Stimulating Hormone (TSH) 2018-06-05 17:47:00* Test Item Value Reference Range Interpretation Comments Thyroid Stimulating Hormone (TSH) (test code = 81132-4) 2.134 0.350-4.940 [facility] Beqzyesdc6953-51-89 17:47:00* Test Item Value Reference Range Interpretation Comments Free Thyroxine (test code = 3024-7) 0.95 0.9-1.8 [facility]viewThyroid Stimulating Hormone (TSH) 2018-06-05 17:47:00* Test Item Value Reference Range Interpretation Comments Thyroid Stimulating Hormone (TSH) (test code = 68576-8) 2.134 0.350-4.940 [facility] Chtsbujey9934-34-11 17:47:00* Test Item Value Reference Range Interpretation Comments Free Thyroxine (test code = 3024-7) 0.95 0.9-1.8 [facility] LongviewThyroid Stimulating Hormone (TSH) 2018-06-05 17:47:00* Test Item Value Reference Range Interpretation Comments Thyroid Stimulating Hormone (TSH) (test code = 88862-3) 2.134 0.350-4.940 [facility] LongviewHemoglobin A1c Cirdrvf1819-49-27 17:23:00 * Test Item Value Reference Range Interpretation Comments Hemoglobin A1c Percent (test code = Hemoglobin A1c Percent) 12.8 4.0-7.0 H [facility] LongviewHemoglobin A1c Wpwtfnc3828-50-26 17:23:00 * Test Item Value Reference Range Interpretation Comments Hemoglobin A1c Percent (test code = Hemoglobin A1c Percent) 12.8 4.0-7.0 H [facility] LongviewHemoglobin A1c Pzgfvit4096-93-62 17:23:00 * Test Item Value Reference Range Interpretation Comments Hemoglobin A1c Percent (test code = Hemoglobin A1c Percent) 12.8 4.0-7.0 H [facility] LongviewHemoglobin A1c Ixvbgtq1898-77-68 17:23:00 * Test Item Value Reference Range Interpretation Comments Hemoglobin A1c Percent (test code = Hemoglobin A1c Percent) 12.8 4.0-7.0 H [facility] LongviewHemoglobin A1c Fhcmgxv4951-68-66 17:23:00 * Test Item Value Reference Range Interpretation Comments Hemoglobin A1c Percent (test code = Hemoglobin A1c Percent) 12.8 4.0-7.0 H [facility] LongviewLactic Acid Qnzlc7248-00-77 15:54:00* Test Item Value Reference Range Interpretation Comments Lactic Acid Level (test code = Lactic Acid Level) 21.9 4.5- 19.8 HH Results repeated and RBV & called Roseann Wong at 1552 on 06/05/18 by Aly Almaraz. Read back and verified.[facility]viewCHEST [facility]INGLE ([facility])2018-06-05 11:14:[address] [address] Patient Name: TONEY NAVA MR #: [id number] : 1940 Age/Sex: 78/M Req #: [id number] Adm Physician: Ordered by: NATALIE HENNING [employer] Report #: [id number] Location: Room/Bed: Procedure: [id number] DX/CHEST SINGLE (PORTABLE) Exam Date: 06/05/18 Exam [...] on 06/05/18 1116 COPY TO: NATALIE HENNING NP B-Type Natriuretic Bjwoiek2755-44-65 11:08:00* Test Item Value Reference Range Interpretation Comments B-Type Natriuretic Peptide (test code = 63798-5) 64.0 0-100 [facility]viewB-Type Natriuretic Ieousrw8884-36-12 11:08:00* Test Item Value Reference Range Interpretation Comments B-Type Natriuretic Peptide (test code = 19070-5) 64.0 0-100 [facility]viewCreatine Kinase WU0644-64-15 11:05:00* Test Item Value Reference Range Interpretation Comments Creatine Kinase MB (test code = 44211-6) 5.30 0-5.0 H [facility] LongviewTroponin J0331-38-15 11:05:00* Test Item Value Reference Range Interpretation Comments Troponin I (test code = BWF6081) 0.022 0-0.300 [facility] LongviewCreatine Kinase IS1270-89-08 11:05:00* Test Item Value Reference Range Interpretation Comments Creatine Kinase MB (test code = 61511-9) 5.30 0-5.0 H [facility] LongviewTroponin Y2182-54-66 11:05:00* Test Item Value Reference Range Interpretation Comments Troponin I (test code = ZOP1207) 0.022 0-0.300 [facility] LongviewCreatine Lambkt8074-78-34 10:58:00* Test Item Value Reference Range Interpretation Comments Creatine Kinase (test code = 2157-6) 259 30-200 H [facility] LongviewCreatine Uxiqhp0049-21-31 10:58:00* Test Item Value Reference Range Interpretation Comments Creatine Kinase (test code = 2157-6) 259 30-200 H [facility] LongviewUrine Ynfqj1592-99-45 10:49:00* Test Item Value Reference Range Interpretation Comments Urine Color (test code = 5778-6) YELLOW YELLOW [facility] LongviewUrine Nnihxdc5025-68-31 10:49:00* Test Item Value Reference Range Interpretation Comments Urine Clarity (test code = 63656-0) CLEAR CLEAR [facility] LongviewUrine Specific Vxfazvc1839-79-45 10:49:00 * Test Item Value Reference Range Interpretation Comments Urine Specific Belden (test code = 5811-5) 1.010 1.010-1.02 5 [facility]viewUrine lE0706-12-81 10:49:00* Test Item Value Reference Range Interpretation Comments Urine pH (test code = 34478-6) 6 5-7 [facility] Leukocyte Sxqmsbdw8513-08-96 10:49:00* Test Item Value Reference Range Interpretation Comments Urine Leukocyte Esterase (test code = 5799-2) NEGATIVE NEGATIVE [facility]viewU[facility] Xbqkqik1478-64-18 10:49:00* Test Item Value Reference Range Interpretation Comments Urine Nitrite (test code = 92868-3) NEGATIVE NEGATIVE [facility]viewU[facility] Kwcbznt0147-78-39 10:49:00* Test Item Value Reference Range Interpretation Comments Urine Protein (test code = 5804-0) 2+ NEGATIVE H [facility] LongviewUrine Glucose (UA)2018-06-05 10:49:00* Test Item Value Reference Range Interpretation Comments Urine Glucose (UA) (test code = 2349-9) 3+ NEGATIVE H [facility] LongviewUrine Rdthmfc6007-83-58 10:49:00* Test Item Value Reference Range Interpretation Comments Urine Ketones (test code = 41697-8) NEGATIVE NEGATIVE [facility] Vmrwyjfiyndh1040-89-65 10:49:00* Test Item Value Reference Range Interpretation Comments Urine Urobilinogen (test code = 55193-0) 0.2 0.2-1 [facility]viewU[facility] Ptliiahfz9387-01-50 10:49:00* Test Item Value Reference Range Interpretation Comments Urine Bilirubin (test code = 1978-6) NEGATIVE NEGATIVE [facility]viewU[facility] Jgclk4787-34-83 10:49:00* Test Item Value Reference Range Interpretation Comments Urine Blood (test code = 24688-9) 2+ NEGATIVE H [facility] LongviewU[facility] HJI4532-05-66 10:49:00* Test Item Value Reference Range Interpretation Comments Urine WBC (test code = 5821-4) 0-5 0-5 [facility]viewU[facility] TFP7721-42-03 10:49:00* Test Item Value Reference Range Interpretation Comments Urine RBC (test code = 93331-6) 0-5 0-5 [facility]viewU[facility] Moxyzbzf8238-51-47 10:49:00* Test Item Value Reference Range Interpretation Comments Urine Bacteria (test code = 06444-5) RARE NONE [facility]viewUrine Epithelial Fowvs7883-84-53 10:49:00 * Test Item Value Reference Range Interpretation Comments Urine Epithelial Cells (test code = 46914-0) NONE NONE [facility]viewU[facility] Fmhxk8016-22-10 10:49:00* Test Item Value Reference Range Interpretation Comments Urine Color (test code = 5778-6) YELLOW YELLOW [facility]viewU[facility] Agdusmr0950-47-30 10:49:00* Test Item Value Reference Range Interpretation Comments Urine Clarity (test code = 24184-4) CLEAR CLEAR [facility]viewUrine Specific Jqszvmv1351-67-06 10:49:00 * Test Item Value Reference Range Interpretation Comments Urine Specific Belden (test code = 5811-5) 1.010 1.010-1.02 5 [facility]viewU[facility] iM1952-55-04 10:49:00* Test Item Value Reference Range Interpretation Comments Urine pH (test code = 53426-0) 6 5-7 [facility]view[facility] Leukocyte Kifryyza6736-08-06 10:49:00* Test Item Value Reference Range Interpretation Comments Urine Leukocyte Esterase (test code = 5799-2) NEGATIVE NEGATIVE [facility]viewU[facility] Hpnmikk9334-82-84 10:49:00* Test Item Value Reference Range Interpretation Comments Urine Nitrite (test code = 87028-8) NEGATIVE NEGATIVE [facility]viewU[facility] Mjypecy8410-15-53 10:49:00* Test Item Value Reference Range Interpretation Comments Urine Protein (test code = 5804-0) 2+ NEGATIVE H [facility]viewUrine Glucose (UA)2018-06-05 10:49:00* Test Item Value Reference Range Interpretation Comments Urine Glucose (UA) (test code = 2349-9) 3+ NEGATIVE H [facility]viewU[facility] Ovmxjnz2996-98-36 10:49:00* Test Item Value Reference Range Interpretation Comments Urine Ketones (test code = 52008-8) NEGATIVE NEGATIVE [facility]viewU[facility] Qtpiwpwvjbll5374-22-94 10:49:00* Test Item Value Reference Range Interpretation Comments Urine Urobilinogen (test code = 91809-9) 0.2 0.2-1 [facility] Fecjnmveb9696-44-11 10:49:00* Test Item Value Reference Range Interpretation Comments Urine Bilirubin (test code = 1978-6) NEGATIVE NEGATIVE [facility]viewU[facility] Qnksi9143-66-77 10:49:00* Test Item Value Reference Range Interpretation Comments Urine Blood (test code = 67040-6) 2+ NEGATIVE H [facility]viewU[facility] BTA5394-68-57 10:49:00* Test Item Value Reference Range Interpretation Comments Urine WBC (test code = 5821-4) 0-5 0-5 [facility] BRW9734-93-11 10:49:00* Test Item Value Reference Range Interpretation Comments Urine RBC (test code = 77116-2) 0-5 0-5 [facility] Wiqmwdkv7080-65-21 10:49:00* Test Item Value Reference Range Interpretation Comments Urine Bacteria (test code = 61186-5) RARE NONE [facility] Epithelial Dgvzw5467-67-39 10:49:00 * Test Item Value Reference Range Interpretation Comments Urine Epithelial Cells (test code = 98904-1) NONE NONE [facility] Fbapp2753-07-82 10:49:00* Test Item Value Reference Range Interpretation Comments Urine Color (test code = 5778-6) YELLOW YELLOW [facility]viewU[facility] Oregjbr6300-49-21 10:49:00* Test Item Value Reference Range Interpretation Comments Urine Clarity (test code = 82199-0) CLEAR CLEAR [facility]viewU[facility] Specific Yelwwej2634-65-24 10:49:00 * Test Item Value Reference Range Interpretation Comments Urine Specific Belden (test code = 5811-5) 1.010 1.010-1.02 5 [facility]viewU[facility] sP4880-16-42 10:49:00* Test Item Value Reference Range Interpretation Comments Urine pH (test code = 29745-4) 6 5-7 [facility] Leukocyte Tytajljw3525-44-47 10:49:00* Test Item Value Reference Range Interpretation Comments Urine Leukocyte Esterase (test code = 5799-2) NEGATIVE NEGATIVE [facility] Teaarfy9097-45-39 10:49:00* Test Item Value Reference Range Interpretation Comments Urine Nitrite (test code = 47940-0) NEGATIVE NEGATIVE [facility]viewU[facility] Pmguheb6099-96-37 10:49:00* Test Item Value Reference Range Interpretation Comments Urine Protein (test code = 5804-0) 2+ NEGATIVE H [facility]viewUrine Glucose (UA)2018-06-05 10:49:00* Test Item Value Reference Range Interpretation Comments Urine Glucose (UA) (test code = 2349-9) 3+ NEGATIVE H [facility]viewU[facility] Muxflxm6560-78-02 10:49:00* Test Item Value Reference Range Interpretation Comments Urine Ketones (test code = 28198-2) NEGATIVE NEGATIVE [facility] Zbbolfdjxpki5024-77-39 10:49:00* Test Item Value Reference Range Interpretation Comments Urine Urobilinogen (test code = 46001-4) 0.2 0.2-1 [facility] Cccfhpceh3441-57-14 10:49:00* Test Item Value Reference Range Interpretation Comments Urine Bilirubin (test code = 1978-6) NEGATIVE NEGATIVE [facility] Cwqug2943-34-57 10:49:00* Test Item Value Reference Range Interpretation Comments Urine Blood (test code = 93761-3) 2+ NEGATIVE H [facility] LongviewU[facility] XCQ1501-12-94 10:49:00* Test Item Value Reference Range Interpretation Comments Urine WBC (test code = 5821-4) 0-5 0-5 [facility]view[facility] GTG5553-71-09 10:49:00* Test Item Value Reference Range Interpretation Comments Urine RBC (test code = 93295-6) 0-5 0-5 [facility] Rbciaucq2747-18-79 10:49:00* Test Item Value Reference Range Interpretation Comments Urine Bacteria (test code = 30159-3) RARE NONE [facility]viewU[facility] Epithelial Niogy4056-29-86 10:49:00 * Test Item Value Reference Range Interpretation Comments Urine Epithelial Cells (test code = 40941-1) NONE NONE [facility] LongviewActivated Partial Thromboplast Time 2018-06-05 10:45:00* Test Item Value Reference Range Interpretation Comments Activated Partial Thromboplast Time (test code = 42599-7) 58.1 23.8-35.5 H [facility] LongviewActivated Partial Thromboplast Time 2018-06-05 10:45:00* Test Item Value Reference Range Interpretation Comments Activated Partial Thromboplast Time (test code = 23118-7) 58.1 23.8-35.5 H [facility] LongviewActivated Partial Thromboplast Time 2018-06-05 10:45:00* Test Item Value Reference Range Interpretation Comments Activated Partial Thromboplast Time (test code = 75753-5) 58.1 23.8-35.5 H [facility] LongviewBedside Axlydlz3435-02-86 12:23:00* Test Item Value Reference Range Interpretation Comments Bedside Glucose (test code = 67453-2) 399 70-120 H Meter ID: [id number] [facility]Blood [facility] 2018-05-30 12:23:00* Test Item Value Reference Range Interpretation Comments Blood Culture (test code = 02706359) NO GROWTH AFTER 48 HOURS [facility]woododium Xspok6349-65-04 06:44:00* Test Item Value Reference Range Interpretation Comments Sodium Level (test code = 2951-2) 138 136-145 [facility] LongviewPotassium Rszvp1979-76-30 06:44:00* Test Item Value Reference Range Interpretation Comments Potassium Level (test code = 2823-3) 3.9 3.5-5.1 [facility] LongviewChloride Glnml7658-32-31 06:44:00* Test Item Value Reference Range Interpretation Comments Chloride Level (test code = 2075-0) 95 98-107 L [facility] LongviewCarbon Dioxide Fjzmy5228-65-63 06:44:00* Test Item Value Reference Range Interpretation Comments Carbon Dioxide Level (test code = 2028-9) 32 22-29 H [facility] LongviewAnion Zwv0960-18-96 06:44:00* Test Item Value Reference Range Interpretation Comments Anion Gap (test code = 07938-7) 14.9 8-16 [facility] LongviewBlood Urea Zzdjfbbf4143-85-72 06:44:00* Test Item Value Reference Range Interpretation Comments Blood Urea Nitrogen (test code = 3094-0) 29 7-26 H [facility] LongviewCreatinine2019-02-04 06:44:00* Test Item Value Reference Range Interpretation Comments Creatinine (test code = 2160-0) 1.58 0.72-1.25 H [facility] LongviewBUN/Creatinine Lmihz1171-87-95 06:44:00* Test Item Value Reference Range Interpretation Comments BUN/Creatinine Ratio (test code = 3097-3) 18 6-25 [facility] LongviewEstimat Glomerular Filtration Rate 2018-05-30 06:44:00* Test Item Value Reference Range Interpretation Comments Estimat Glomerular Filtration Rate (test code = 927180021) 42 >60 L Ranges were taken from the National Kidney Disease Education Program and the [facility] literature.Reference ranges:60 or greater: Xfyyhu13-10 ( for 3 consecutive months): Chronic kidney disease 15 or less: Kidney failureCHRISTUS Good Shepherd Medical Center – LongviewGlucose Myres3202-62-57 06:44:00* Test Item Value Reference Range Interpretation Comments Glucose Level (test code = OGK4630) 260 74-118 H [facility] LongviewCalcium Laxuy8604-64-49 06:44:00* Test Item Value Reference Range Interpretation Comments Calcium Level (test code = 32578-2) 8.1 8.4-10.2 L [facility] LongviewProthrombin Vipn6606-02-53 06:26:00* Test Item Value Reference Range Interpretation Comments Prothrombin Time (test code = 5902-2) 31.4 11.9-14.5 H [facility] LongviewProthromb Time International Ratio 2018-05-30 06:26:00* Test Item Value Reference Range Interpretation Comments Prothromb Time International Ratio (test code = 6301-6) 2.79 Oral Anticoagulant Therapy INR Values:1. Low Intensity Therapy 1.5 - 2.02 . Moderate Intensity Therapy 2.0 - 3.03. High Intensity Therapy(1) 2.5 - 3. 54. High Intensity Therapy(2) 3.0 - 4.05. Panic Value INR > 5.0 [facility] LongviewWhite Blood Esxce2212-49-92 06:03:00* Test Item Value Reference Range Interpretation Comments White Blood Count (test code = 6690-2) 7.44 4.8-10.8 [facility] LongviewRed Blood Wzasm0025-46-89 06:03:00* Test Item Value Reference Range Interpretation Comments Red Blood Count (test code = 789-8) 4.31 4.3-5.7 [facility] LongviewHemoglobin2019-02-04 06:03:00* Test Item Value Reference Range Interpretation Comments Hemoglobin (test code = 45439-0) 12.4 14.0-18.0 L [facility] LongviewHematocrit2019-02-04 06:03:00* Test Item Value Reference Range Interpretation Comments Hematocrit (test code = 4544-3) 38.6 38.2-49.6 [facility] LongviewMean Corpuscular Hkgijt1685-02-18 06:03:00* Test Item Value Reference Range Interpretation Comments Mean Corpuscular Volume (test code = 787-2) 89.6 81-99 [facility] Corpuscular Elnxcmnamz3017-96-26 06:03:00* Test Item Value Reference Range Interpretation Comments Mean Corpuscular Hemoglobin (test code = 785-6) 28.8 28-32 [facility]Mean Corpuscular Hemoglobin Concent 2018-05-30 06:03:00* Test Item Value Reference Range Interpretation Comments Mean Corpuscular Hemoglobin Concent (test code = 786-4) 32.1 31-35 [facility]viewRed Cell Distribution Rojgn6075-93-23 06:03:00* Test Item Value Reference Range Interpretation Comments Red Cell Distribution Width (test code = 22675-6) 14.2 11.7 -14.4 [facility]viewPlatelet Zwsrf8665-61-87 06:03:00* Test Item Value Reference Range Interpretation Comments Platelet Count (test code = 777-3) 134 140-360 L [facility]viewNeutrophils (%) (Auto)2018-05-30 06:03:00 * Test Item Value Reference Range Interpretation Comments Neutrophils (%) (Auto) (test code = 75783-8) 59.3 38.7-80.0 [facility]viewLymphocytes (%) (Auto)2018-05-30 06:03:00 * Test Item Value Reference Range Interpretation Comments Lymphocytes (%) (Auto) (test code = 736-9) 23.5 18.0-39.1 [facility]viewMonocytes (%) (Auto)2018-05-30 06:03:00* Test Item Value Reference Range Interpretation Comments Monocytes (%) (Auto) (test code = 5905-5) 10.6 4.4-11.3 [facility]viewEosinophils (%) (Auto)2018-05-30 06:03:00 * Test Item Value Reference Range Interpretation Comments Eosinophils (%) (Auto) (test code = 713-8) 5.8 0.0-6.0 [facility]viewBasophils (%) (Auto)2018-05-30 06:03:00* Test Item Value Reference Range Interpretation Comments Basophils (%) (Auto) (test code = 706-2) 0.5 0.0-1.0 [facility]viewIM GRANULOCYTES %2018-05-30 06:03:00* Test Item Value Reference Range Interpretation Comments IM GRANULOCYTES % (test code = IM GRANULOCYTES %) 0.3 0.0- 1.0 [facility]viewNeutrophils # (Auto)2018-05-30 06:03:00* Test Item Value Reference Range Interpretation Comments Neutrophils # (Auto) (test code = 751-8) 4.4 2.1-6.9 [facility]viewLymphocytes # (Auto)2018-05-30 06:03:00* Test Item Value Reference Range Interpretation Comments Lymphocytes # (Auto) (test code = 52795-7) 1.8 1.0-3.2 [facility]viewMonocytes # (Auto)2018-05-30 06:03:00* Test Item Value Reference Range Interpretation Comments Monocytes # (Auto) (test code = 742-7) 0.8 0.2-0.8 [facility]viewEosinophils # (Auto)2018-05-30 06:03:00* Test Item Value Reference Range Interpretation Comments Eosinophils # (Auto) (test code = 711-2) 0.4 0.0-0.4 [facility]viewBasophils # (Auto)2018-05-30 06:03:00* Test Item Value Reference Range Interpretation Comments Basophils # (Auto) (test code = 704-7) 0.0 0.0-0.1 [facility]viewAbsolute Immature Granulocyte (auto 2018-05-30 06:03:00* Test Item Value Reference Range Interpretation Comments Absolute Immature Granulocyte (auto (jeyson t code = Absolute Immature Granulocyte (auto) 0.02 0-0.1 [facility]viewTotal Zudzaufvb7455-34-59 08:37:00* Test Item Value Reference Range Interpretation Comments Total Bilirubin (test code = 1975-2) 0.6 0.2-1.2 [facility] LongviewAspartate Amino Transf (AST/SGOT) 2018-05-29 08:37:00* Test Item Value Reference Range Interpretation Comments Aspartate Amino Transf (AST/SGOT) (test code = Aspartate Amino Transf (AST/SGOT)) 15 5-34 [facility] LongviewAlanine Aminotransferase (ALT/SGPT) 2018-05-29 08:37:00* Test Item Value Reference Range Interpretation Comments Alanine Aminotransferase (ALT/SGPT) (test code = 1742-6) 13 0-55 [facility]viewTotal Qkxkrks1131-71-55 08:37:00* Test Item Value Reference Range Interpretation Comments Total Protein (test code = 2885-2) 6.0 6.5-8.1 L [facility] LongviewAlbumin2019-02-03 08:37:00* Test Item Value Reference Range Interpretation Comments Albumin (test code = 1751-7) 3.0 3.5-5.0 L [facility] LongviewGlobulin2019-02-03 08:37:00* Test Item Value Reference Range Interpretation Comments Globulin (test code = 24777-4) 3.0 2.3-3.5 [facility] LongviewAlbumin/Globulin Yosjp3535-08-34 08:37:00 * Test Item Value Reference Range Interpretation Comments Albumin/Globulin Ratio (test code = 1759-0) 1.0 0.8-2.0 [facility]viewAlkaline Lxbceulksgw0935-69-58 08:37:00* Test Item Value Reference Range Interpretation Comments Alkaline Phosphatase (test code = 6768-6) 65 40-150 [facility] LongviewCreatine Yszkeu4796-28-60 08:28:00* Test Item Value Reference Range Interpretation Comments Creatine Kinase (test code = 2157-6) 265 30-200 H [facility] LongviewLactic Acid Cfray0602-82-14 08:13:00* Test Item Value Reference Range Interpretation Comments Lactic Acid Level (test code = Lactic Acid Level) 10.5 4.5- 19.8 [facility]viewCHEST SINGLE (PORTABLE)2018-05-28 15:25:00 [place] [address] Patient Name: TONEY NAVA MR #: [id number] : 1940 Age/Sex: 78/M Req #: [id number] Adm Physician: CARROLL LIMA MD Ordered by: CARROLL LIMA MD Report #: [id number] Location: MED/SURG3 Room/Bed: 2931 Procedure: [id number] D X/CHEST SINGLE (PORTABLE) Exam Date: 05/28/18 Exam T johnny: 1410 REPORT STATUS: Signed ADDENDUM #1 Additional history: Shortness of breath. Signed by: Dr. Hien Blackburn MD on 06/13/2018 9:29 AM ORIGINAL REPORT EXAMINATION: CHEST SINGLE (PORTABLE) COMPARISON: CTA chest 04/27/2018, chest x-ray 04/26/2018 INDICATION: R/O PULM EDEMA [id number] DISCUSSION: Frontal view of the chest [...] 1528 COPY TO: CARROLL LIMA MD Urine IOX0709-02-19 13:17:00* Test Item Value Reference Range Interpretation Comments Urine WBC (test code = 5821-4) 0-5 0-5 [facility] LongviewUrine TEB1066-00-10 13:17:00* Test Item Value Reference Range Interpretation Comments Urine RBC (test code = 68482-3) 6-10 0-5 H [facility] LongviewUrine Wpwgmgxy8129-48-50 13:17:00* Test Item Value Reference Range Interpretation Comments Urine Bacteria (test code = 87457-9) FEW NONE [facility] LongviewUrine Epithelial Zykmw1319-58-40 13:17:00 * Test Item Value Reference Range Interpretation Comments Urine Epithelial Cells (test code = 32862-6) FEW NONE [facility] Dmgye1531-57-45 13:15:00* Test Item Value Reference Range Interpretation Comments Urine Color (test code = 5778-6) YELLOW YELLOW [facility] LongviewUrine Wdkcruw5121-72-46 13:15:00* Test Item Value Reference Range Interpretation Comments Urine Clarity (test code = 98396-8) HAZY CLEAR [facility] Specific Sajxonp2625-56-71 13:15:00 * Test Item Value Reference Range Interpretation Comments Urine Specific Belden (test code = 5811-5) 1.005 1.010-1.02 5 L [facility] LongviewUrine qB4249-80-59 13:15:00* Test Item Value Reference Range Interpretation Comments Urine pH (test code = 60222-9) 6 5-7 [facility] Leukocyte Jnzodmpq2237-20-52 13:15:00* Test Item Value Reference Range Interpretation Comments Urine Leukocyte Esterase (test code = 5799-2) NEGATIVE NEGATIVE [facility] Zgelfak9457-98-34 13:15:00* Test Item Value Reference Range Interpretation Comments Urine Nitrite (test code = 56104-0) NEGATIVE NEGATIVE [facility] Xfczqlk2702-81-12 13:15:00* Test Item Value Reference Range Interpretation Comments Urine Protein (test code = 5804-0) NEGATIVE NEGATIVE [facility] Glucose (UA)2018-05-28 13:15:00* Test Item Value Reference Range Interpretation Comments Urine Glucose (UA) (test code = 2349-9) 3+ NEGATIVE H [facility] Mdaqrur6864-73-43 13:15:00* Test Item Value Reference Range Interpretation Comments Urine Ketones (test code = 36190-1) NEGATIVE NEGATIVE [facility] Wnbnwyhvmjyg8702-76-65 13:15:00* Test Item Value Reference Range Interpretation Comments Urine Urobilinogen (test code = 78279-5) 0.2 0.2-1 [facility] Vxwirizts4603-78-39 13:15:00* Test Item Value Reference Range Interpretation Comments Urine Bilirubin (test code = 1978-6) NEGATIVE NEGATIVE [facility]viewUrine Uenlk0809-99-55 13:15:00* Test Item Value Reference Range Interpretation Comments Urine Blood (test code = 07544-2) TRACE NEGATIVE H [facility] LongviewB-Type Natriuretic Yjnrnco5104-39-95 12:54:00* Test Item Value Reference Range Interpretation Comments B-Type Natriuretic Peptide (test code = 31749-5) 82.3 0-100 [facility]viewCreatine Kinase CJ7923-45-53 12:51:00* Test Item Value Reference Range Interpretation Comments Creatine Kinase MB (test code = 31826-8) 5.50 0-5.0 H [facility] LongviewTroponin D1479-41-14 12:51:00* Test Item Value Reference Range Interpretation Comments Troponin I (test code = ZWF8529) 0.010 0-0.300 [facility] LongviewActivated Partial Thromboplast Time 2018-05-28 12:43:00* Test Item Value Reference Range Interpretation Comments Activated Partial Thromboplast Time (test code = 02429-4) 63.8 23.8-35.5 H [facility] LongviewBedside Heixsat1605-79-14 07:47:00* Test Item Value Reference Range Interpretation Comments Bedside Glucose (test code = 20063-3) 330 70-120 H Meter ID: [id number] [facility] Brownwoododium Level 2018-04-30 05:03:00* Test Item Value Reference Range Interpretation Comments Sodium Level (test code = 2951-2) 133 136-145 L [facility]viewPotassium Btktt6367-89-41 05:03:00* Test Item Value Reference Range Interpretation Comments Potassium Level (test code = 2823-3) 4.1 3.5-5.1 [facility] LongviewChloride Hhnxw5345-59-60 05:03:00* Test Item Value Reference Range Interpretation Comments Chloride Level (test code = 2075-0) 93 98-107 L [facility] LongviewCarbon Dioxide Lwrxx0658-32-63 05:03:00* Test Item Value Reference Range Interpretation Comments Carbon Dioxide Level (test code = 2028-9) 31 22-29 H [facility] LongviewAnion Qdb3038-03-41 05:03:00* Test Item Value Reference Range Interpretation Comments Anion Gap (test code = 22838-7) 13.1 8-16 [facility] LongviewBlood Urea Zhepmmps4379-96-58 05:03:00* Test Item Value Reference Range Interpretation Comments Blood Urea Nitrogen (test code = 3094-0) 35 7-26 H [facility] LongviewCreatinine2019-01-05 05:03:00* Test Item Value Reference Range Interpretation Comments Creatinine (test code = 2160-0) 1.67 0.72-1.25 H [facility] LongviewBUN/Creatinine Iervw9135-79-37 05:03:00* Test Item Value Reference Range Interpretation Comments BUN/Creatinine Ratio (test code = 3097-3) 21 6-25 [facility] LongviewEstimat Glomerular Filtration Rate 2018-04-30 05:03:00* Test Item Value Reference Range Interpretation Comments Estimat Glomerular Filtration Rate (test code = 661010506) 40 >60 L Ranges were taken from the National Kidney Disease Education Program and the [facility] [employer] literature.Reference ranges:60 or greater: Raeywo20-77 ( for 3 consecutive months): Chronic kidney disease 15 or less: Kidney failureCHRIST[facility] – LongviewGlucose Iggdi0970-82-09 05:03:00* Test Item Value Reference Range Interpretation Comments Glucose Level (test code = CPX5055) 300 74-118 H [facility] LongviewCalcium Atvem6407-38-61 05:03:00* Test Item Value Reference Range Interpretation Comments Calcium Level (test code = 10781-4) 8.4 8.4-10.2 [facility] LongviewWhite Blood Dvzhb8482-05-70 04:47:00* Test Item Value Reference Range Interpretation Comments White Blood Count (test code = 6690-2) 7.00 4.8-10.8 [facility] LongviewRed Blood Ougrs6638-25-24 04:47:00* Test Item Value Reference Range Interpretation Comments Red Blood Count (test code = 789-8) 4.15 4.3-5.7 L [facility] LongviewHemoglobin2019-01-05 04:47:00* Test Item Value Reference Range Interpretation Comments Hemoglobin (test code = 46150-2) 12.1 14.0-18.0 L [facility] LongviewHematocrit2019-01-05 04:47:00* Test Item Value Reference Range Interpretation Comments Hematocrit (test code = 4544-3) 37.1 38.2-49.6 L [facility]viewMean Corpuscular Plmuar5065-89-99 04:47:00* Test Item Value Reference Range Interpretation Comments Mean Corpuscular Volume (test code = 787-2) 89.4 81-99 [facility]viewMean Corpuscular Pucfsnlnxh1441-47-41 04:47:00* Test Item Value Reference Range Interpretation Comments Mean Corpuscular Hemoglobin (test code = 785-6) 29.2 28-32 [facility]viewMean Corpuscular Hemoglobin Concent 2018-04-30 04:47:00* Test Item Value Reference Range Interpretation Comments Mean Corpuscular Hemoglobin Concent (test code = 786-4) 32.6 31-35 [facility] LongviewRed Cell Distribution Pjzua7219-41-65 04:47:00* Test Item Value Reference Range Interpretation Comments Red Cell Distribution Width (test code = 94833-3) 14.5 11.7 -14.4 H [facility] LongviewPlatelet Xrtgv2260-36-94 04:47:00* Test Item Value Reference Range Interpretation Comments Platelet Count (test code = 777-3) 132 140-360 L [facility] LongviewNeutrophils (%) (Auto)2018-04-30 04:47:00 * Test Item Value Reference Range Interpretation Comments Neutrophils (%) (Auto) (test code = 67384-2) 59.4 38.7-80.0 [facility] LongviewLymphocytes (%) (Auto)2018-04-30 04:47:00 * Test Item Value Reference Range Interpretation Comments Lymphocytes (%) (Auto) (test code = 736-9) 21.9 18.0-39.1 [facility]viewMonocytes (%) (Auto)2018-04-30 04:47:00* Test Item Value Reference Range Interpretation Comments Monocytes (%) (Auto) (test code = 5905-5) 10.1 4.4-11.3 [facility]viewEosinophils (%) (Auto)2018-04-30 04:47:00 * Test Item Value Reference Range Interpretation Comments Eosinophils (%) (Auto) (test code = 713-8) 8.1 0.0-6.0 H [facility] LongviewBasophils (%) (Auto)2018-04-30 04:47:00* Test Item Value Reference Range Interpretation Comments Basophils (%) (Auto) (test code = 706-2) 0.4 0.0-1.0 [facility] LongviewIM GRANULOCYTES %2018-04-30 04:47:00* Test Item Value Reference Range Interpretation Comments IM GRANULOCYTES % (test code = IM GRANULOCYTES %) 0.1 0.0- 1.0 [facility]viewNeutrophils # (Auto)2018-04-30 04:47:00* Test Item Value Reference Range Interpretation Comments Neutrophils # (Auto) (test code = 751-8) 4.2 2.1-6.9 [facility] LongviewLymphocytes # (Auto)2018-04-30 04:47:00* Test Item Value Reference Range Interpretation Comments Lymphocytes # (Auto) (test code = 04909-7) 1.5 1.0-3.2 [facility]viewMonocytes # (Auto)2018-04-30 04:47:00* Test Item Value Reference Range Interpretation Comments Monocytes # (Auto) (test code = 742-7) 0.7 0.2-0.8 [facility]viewEosinophils # (Auto)2018-04-30 04:47:00* Test Item Value Reference Range Interpretation Comments Eosinophils # (Auto) (test code = 711-2) 0.6 0.0-0.4 H [facility]viewBasophils # (Auto)2018-04-30 04:47:00* Test Item Value Reference Range Interpretation Comments Basophils # (Auto) (test code = 704-7) 0.0 0.0-0.1 [facility] LongviewAbsolute Immature Granulocyte (auto 2018-04-30 04:47:00* Test Item Value Reference Range Interpretation Comments Absolute Immature Granulocyte (auto (jeyson t code = Absolute Immature Granulocyte (auto) 0.01 0-0.1 [facility] LongviewBlood Feuugan4291-05-99 00:11:00* Test Item Value Reference Range Interpretation Comments Blood Culture (test code = 83415631) NO GROWTH AFTER 72 HOURS [facility] LongviewHemoglobin A1c Dzthmdy2854-69-85 12:27:00 * Test Item Value Reference Range Interpretation Comments Hemoglobin A1c Percent (test code = Hemoglobin A1c Percent) 11.2 4.0-7.0 H [facility] LongviewHemoglobin A1c Teyxlwm7420-07-67 12:27:00 * Test Item Value Reference Range Interpretation Comments Hemoglobin A1c Percent (test code = Hemoglobin A1c Percent) 11.2 4.0-7.0 H [facility] LongviewVitamin B12 Eqnyf1886-00-40 06:44:00* Test Item Value Reference Range Interpretation Comments Vitamin B12 Level (test code = 22875-1) 372 213816 [facility] LongviewThyroid Stimulating Hormone (TSH) 2018-04-28 06:44:00* Test Item Value Reference Range Interpretation Comments Thyroid Stimulating Hormone (TSH) (test code = 93532-6) 4.660 0.350-4.940 [facility] LongviewVitamin B12 Iutdp7869-90-08 06:44:00* Test Item Value Reference Range Interpretation Comments Vitamin B12 Level (test code = 36808-5) 270 213-816 [facility] LongviewThyroid Stimulating Hormone (TSH) 2018-04-28 06:44:00* Test Item Value Reference Range Interpretation Comments Thyroid Stimulating Hormone (TSH) (test code = 37301-2) 4.660 0.350-4.940 [facility] LongviewVitamin B12 Yfgxu9025-60-85 06:44:00* Test Item Value Reference Range Interpretation Comments Vitamin B12 Level (test code = 41406-4) 270 213-816 [facility] LongviewVitamin B12 Bpijv9313-01-41 06:44:00* Test Item Value Reference Range Interpretation Comments Vitamin B12 Level (test code = 75286-5) 270 213-816 [facility] LongviewVitamin B12 Pbfmc5621-97-04 06:44:00* Test Item Value Reference Range Interpretation Comments Vitamin B12 Level (test code = 97596-9) 270 213-816 [facility] LongviewVitamin B12 Cdtnm1027-32-95 06:44:00* Test Item Value Reference Range Interpretation Comments Vitamin B12 Level (test code = 23366-7) 270 213-816 [facility] LongviewProthrombin Pxel3139-22-36 06:08:00* Test Item Value Reference Range Interpretation Comments Prothrombin Time (test code = 5902-2) 23.7 11.9-14.5 H [facility] LongviewProthromb Time International Ratio 2018-04-28 06:08:00* Test Item Value Reference Range Interpretation Comments Prothromb Time International Ratio (test code = 6301-6) 1.94 Oral Anticoagulant Therapy INR Values:1. Low Intensity Therapy 1.5 - 2.02 . Moderate Intensity Therapy 2.0 - 3.03. High Intensity Therapy(1) 2.5 - 3. 54. High Intensity Therapy(2) 3.0 - 4.05. Panic Value INR > 5.0 [facility] LongviewCT CHEST AD9101-95-32 20:25:00 [facility] [address] [place] [address] Patient Name: TONEY NAVA MR #: [id number] : 1940 Age/Sex: 78/M Req #: [id number] Adm Physician: KEVIN NAYLOR MD Ordered by: KEVIN NAYLOR MD Report #: [id number] Location: [facility] Room/Bed: [place] [address] Procedure: [id number] CT/CT CHEST WO Exam Date: 04/27/18 Exam Time: 1755 REPORT STATUS: Signed EXAM: CT Chest W [...] 04/27/182047 COPY TO: KEVIN NAYLOR MD Urine WRG6655-53-00 01:00:00* Test Item Value Reference Range Interpretation Comments Urine WBC (test code = 5821-4) 0-5 0-5 [facility] LongviewUrine TUP7463-11-12 01:00:00* Test Item Value Reference Range Interpretation Comments Urine RBC (test code = 97998-1) 11-20 0-5 H [facility] LongviewUrine Nborrlvz4081-80-21 01:00:00* Test Item Value Reference Range Interpretation Comments Urine Bacteria (test code = 64900-6) MANY NONE H [facility] LongviewUrine Epithelial Xpwio0553-41-78 01:00:00 * Test Item Value Reference Range Interpretation Comments Urine Epithelial Cells (test code = 25541-1) FEW NONE [facility] LongviewTotal Fqboobqjk2937-36-89 00:52:00* Test Item Value Reference Range Interpretation Comments Total Bilirubin (test code = 1975-2) 0.9 0.2-1.2 [facility] LongviewAspartate Amino Transf (AST/SGOT) 2018-04-27 00:52:00* Test Item Value Reference Range Interpretation Comments Aspartate Amino Transf (AST/SGOT) (test code = Aspartate Amino Transf (AST/SGOT)) 14 5-34 [facility] LongviewAlanine Aminotransferase (ALT/SGPT) 2018-04-27 00:52:00* Test Item Value Reference Range Interpretation Comments Alanine Aminotransferase (ALT/SGPT) (test code = 1742-6) 15 0-55 [facility] LongviewTotal Ezjtzbt3005-72-31 00:52:00* Test Item Value Reference Range Interpretation Comments Total Protein (test code = 2885-2) 6.9 6.5-8.1 [facility] LongviewAlbumin2019-01-02 00:52:00* Test Item Value Reference Range Interpretation Comments Albumin (test code = 1751-7) 3.3 3.5-5.0 L [facility] LongviewGlobulin2019-01-02 00:52:00* Test Item Value Reference Range Interpretation Comments Globulin (test code = 52944-7) 3.6 2.3-3.5 H [facility] LongviewAlbumin/Globulin Dlulh2748-88-65 00:52:00 * Test Item Value Reference Range Interpretation Comments Albumin/Globulin Ratio (test code = 1759-0) 0.9 0.8-2.0 [facility] LongviewAlkaline Yqkgiskimnl1777-28-87 00:52:00* Test Item Value Reference Range Interpretation Comments Alkaline Phosphatase (test code = 6768-6) 72 40-150 [facility] LongviewUrine Cunjl9634-14-70 00:48:00* Test Item Value Reference Range Interpretation Comments Urine Color (test code = 5778-6) YELLOW YELLOW [facility] LongviewUrine Hxzopmv5223-90-31 00:48:00* Test Item Value Reference Range Interpretation Comments Urine Clarity (test code = 38239-3) CLEAR CLEAR [facility] LongviewUrine Specific Nopnblq2336-45-89 00:48:00 * Test Item Value Reference Range Interpretation Comments Urine Specific [place]den (test code = 5811-5) 1.020 1.010-1.02 5 [facility] LongviewUrine uD0092-55-97 00:48:00* Test Item Value Reference Range Interpretation Comments Urine pH (test code = 60177-6) 5 5-7 [facility] LongviewUrine Leukocyte Ehaxaxgg7706-93-81 00:48:00* Test Item Value Reference Range Interpretation Comments Urine Leukocyte Esterase (test code = 5799-2) NEGATIVE NEGATIVE [facility] LongviewUrine Qwrlspz9982-95-27 00:48:00* Test Item Value Reference Range Interpretation Comments Urine Nitrite (test code = 78423-8) NEGATIVE NEGATIVE [facility] LongviewUrine Fcwtttn9877-73-75 00:48:00* Test Item Value Reference Range Interpretation Comments Urine Protein (test code = 5804-0) 1+ NEGATIVE H [facility] LongviewUrine Glucose (UA)2018-04-27 00:48:00* Test Item Value Reference Range Interpretation Comments Urine Glucose (UA) (test code = 2349-9) 3+ NEGATIVE H [facility] Gucmevu9513-29-80 00:48:00* Test Item Value Reference Range Interpretation Comments Urine Ketones (test code = 29957-4) NEGATIVE NEGATIVE [facility]view[facility] Nlvoyjlgzsoo5382-70-84 00:48:00* Test Item Value Reference Range Interpretation Comments Urine Urobilinogen (test code = 89104-8) 0.2 0.2-1 [facility]viewU[facility] Nzffdyvwz6222-31-20 00:48:00* Test Item Value Reference Range Interpretation Comments Urine Bilirubin (test code = 1978-6) NEGATIVE NEGATIVE [facility]view[facility] Bztke8308-27-98 00:48:00* Test Item Value Reference Range Interpretation Comments Urine Blood (test code = 49169-0) 1+ NEGATIVE H [facility] LongviewLactic Acid Bnzcb5043-91-19 00:44:00* Test Item Value Reference Range Interpretation Comments Lactic Acid Level (test code = Lactic Acid Level) 16.4 4.5- 19.8 [facility]viewInfluenza Virus Types A,B Antigen 2018-04-27 00:33:00* Test Item Value Reference Range Interpretation Comments Influenza Virus Types A,B Antigen (test code = 84755-5) NEGATIVE NEGATIVE [facility]viewInfluenza Virus Types A,B Antigen 2018-04-27 00:33:00* Test Item Value Reference Range Interpretation Comments Influenza Virus Types A,B Antigen (test code = 82929-1) NEGATIVE NEGATIVE [facility]viewInfluenza Virus Types A,B Antigen 2018-04-27 00:33:00* Test Item Value Reference Range Interpretation Comments Influenza Virus Types A,B Antigen (test code = 28130-8) NEGATIVE NEGATIVE [facility]viewInfluenza Virus Types A,B Antigen 2018-04-27 00:33:00* Test Item Value Reference Range Interpretation Comments Influenza Virus Types A,B Antigen (test code = 17910-5) NEGATIVE NEGATIVE [facility]Influenza Virus Types A,B Antigen 2018-04-27 00:33:00* Test Item Value Reference Range Interpretation Comments Influenza Virus Types A,B Antigen (test code = 40597-2) NEGATIVE NEGATIVE [facility]2018-04-26 23:05:00 [facility] [address] [place], [place] [address] Patient Name: TONEY NAVA MR #: [id number] : 1940 Age/Sex: 78/M Req #: [id number] Adm Physician: Ordered by: MADISON COFFEY MD Report #: [id number] Location: ER Room/Bed: Procedure: [id number] 2 DX/CHEST SINGLE (PORTABLE) Exam Date: 04/26/18 Exa m Time: 2250 REPORT STATUS: Signed EXAMINATION: [...] 04/26/182310 COPY TO: MADISON COFFEY MD Urine Nklwozp0619-28-58 11:16:00* Test Item Value Reference Range Interpretation Comments Urine Culture (test code = 630-4) Organism: SERRATIA MARCESCENS [facility]viewU[facility] Ddjftyj5134-14-17 11:16:00* Test Item Value Reference Range Interpretation Comments Urine Culture (test code = 630-4) Organism: SERRATIA MARCESCENS [facility]viewUrine Hhjkgxw7534-21-78 11:16:00* Test Item Value Reference Range Interpretation Comments Urine Culture (test code = 630-4) Organism: SERRATIA MARCESCENS [facility]viewUrine Uiqparn7540-24-55 11:16:00* Test Item Value Reference Range Interpretation Comments Urine Culture (test code = 630-4) Organism: SERRATIA MARCESCENS [facility]viewUrine Qqgytsu4998-26-61 11:16:00* Test Item Value Reference Range Interpretation Comments Urine Culture (test code = 630-4) Organism: SERRATIA MARCESCENS [facility] LongviewBedside Ynebnki0217-51-87 11:49:00* Test Item Value Reference Range Interpretation Comments Bedside Glucose (test code = 45437-1) 271 70-120 H Meter ID: [id number] [facility] SystemWhite Blood Count 2018-04-01 05:55:00* Test Item Value Reference Range Interpretation Comments White Blood Count (test code = 6690-2) 6.54 4.8-10.8 [facility]viewRed Blood Titwa4949-86-94 05:55:00* Test Item Value Reference Range Interpretation Comments Red Blood Count (test code = 789-8) 4.05 4.3-5.7 L [facility]viewHemoglobin2018-12-07 05:55:00* Test Item Value Reference Range Interpretation Comments Hemoglobin (test code = 91648-2) 11.9 14.0-18.0 L [facility]viewHematocrit2018-12-07 05:55:00* Test Item Value Reference Range Interpretation Comments Hematocrit (test code = 4544-3) 36.7 38.2-49.6 L [facility] LongviewMean Corpuscular Qteupy1941-03-41 05:55:00* Test Item Value Reference Range Interpretation Comments Mean Corpuscular Volume (test code = 787-2) 90.6 81-99 [facility]viewMean Corpuscular Jcqnphozai0257-84-61 05:55:00* Test Item Value Reference Range Interpretation Comments Mean Corpuscular Hemoglobin (test code = 785-6) 29.4 28-32 [facility] Hemoglobin Concent 2018-04-01 05:55:00* Test Item Value Reference Range Interpretation Comments Mean Corpuscular Hemoglobin Concent (test code = 786-4) 32.4 31-35 [facility]viewRed Cell Distribution Yyuhb5148-12-19 05:55:00* Test Item Value Reference Range Interpretation Comments Red Cell Distribution Width (test code = 62746-8) 14.7 11.7 -14.4 H [facility] LongviewPlatelet Ulncg3082-85-93 05:55:00* Test Item Value Reference Range Interpretation Comments Platelet Count (test code = 777-3) 151 140-360 [facility]viewNeutrophils (%) (Auto)2018-04-01 05:55:00 * Test Item Value Reference Range Interpretation Comments Neutrophils (%) (Auto) (test code = 12370-6) 55.6 38.7-80.0 [facility]viewLymphocytes (%) (Auto)2018-04-01 05:55:00 * Test Item Value Reference Range Interpretation Comments Lymphocytes (%) (Auto) (test code = 736-9) 24.8 18.0-39.1 [facility]viewMonocytes (%) (Auto)2018-04-01 05:55:00* Test Item Value Reference Range Interpretation Comments Monocytes (%) (Auto) (test code = 5905-5) 11.2 4.4-11.3 [facility]viewEosinophils (%) (Auto)2018-04-01 05:55:00 * Test Item Value Reference Range Interpretation Comments Eosinophils (%) (Auto) (test code = 713-8) 7.6 0.0-6.0 H [facility]viewBasophils (%) (Auto)2018-04-01 05:55:00* Test Item Value Reference Range Interpretation Comments Basophils (%) (Auto) (test code = 706-2) 0.5 0.0-1.0 [facility]viewIM GRANULOCYTES %2018-04-01 05:55:00* Test Item Value Reference Range Interpretation Comments IM GRANULOCYTES % (test code = IM GRANULOCYTES %) 0.3 0.0- 1.0 [facility]viewNeutrophils # (Auto)2018-04-01 05:55:00* Test Item Value Reference Range Interpretation Comments Neutrophils # (Auto) (test code = 751-8) 3.6 2.1-6.9 [facility]viewLymphocytes # (Auto)2018-04-01 05:55:00* Test Item Value Reference Range Interpretation Comments Lymphocytes # (Auto) (test code = 96820-8) 1.6 1.0-3.2 [facility]viewMonocytes # (Auto)2018-04-01 05:55:00* Test Item Value Reference Range Interpretation Comments Monocytes # (Auto) (test code = 742-7) 0.7 0.2-0.8 [facility]viewEosinophils # (Auto)2018-04-01 05:55:00* Test Item Value Reference Range Interpretation Comments Eosinophils # (Auto) (test code = 711-2) 0.5 0.0-0.4 H [facility]viewBasophils # (Auto)2018-04-01 05:55:00* Test Item Value Reference Range Interpretation Comments Basophils # (Auto) (test code = 704-7) 0.0 0.0-0.1 [facility] LongviewAbsolute Immature Granulocyte (auto 2018-04-01 05:55:00* Test Item Value Reference Range Interpretation Comments Absolute Immature Granulocyte (auto (jeyson t code = Absolute Immature Granulocyte (auto) 0.02 0-0.1 [facility] Brownwoododium Ijybi0579-92-99 05:35:00* Test Item Value Reference Range Interpretation Comments Sodium Level (test code = 2951-2) 139 136-145 [facility] LongviewPotassium Apioo9675-28-87 05:35:00* Test Item Value Reference Range Interpretation Comments Potassium Level (test code = 2823-3) 3.9 3.5-5.1 [facility] LongviewChloride Aqwei7639-33-92 05:35:00* Test Item Value Reference Range Interpretation Comments Chloride Level (test code = 2075-0) 99 98-107 [facility] LongviewCarbon Dioxide Enwst6057-90-08 05:35:00* Test Item Value Reference Range Interpretation Comments Carbon Dioxide Level (test code = 2028-9) 30 22-29 H [facility] LongviewAnion Kji9216-52-79 05:35:00* Test Item Value Reference Range Interpretation Comments Anion Gap (test code = 75699-5) 13.9 8-16 [facility] LongviewBlood Urea Huodyohi7169-88-46 05:35:00* Test Item Value Reference Range Interpretation Comments Blood Urea Nitrogen (test code = 3094-0) 30 7-26 H [facility] LongviewCreatinine2018-12-07 05:35:00* Test Item Value Reference Range Interpretation Comments Creatinine (test code = 2160-0) 1.55 0.72-1.25 H [facility] LongviewBUN/Creatinine Gtmin3461-61-15 05:35:00* Test Item Value Reference Range Interpretation Comments BUN/Creatinine Ratio (test code = 3097-3) 19 6-25 [facility] LongviewEstimat Glomerular Filtration Rate 2018-04-01 05:35:00* Test Item Value Reference Range Interpretation Comments Estimat Glomerular Filtration Rate (test code = 616599786) 43 >60 L Ranges were taken from the National Kidney Disease Education Program and the [facility] literature.Reference ranges:60 or greater: Euzrjh17-46 ( for 3 consecutive months): Chronic kidney disease 15 or less: Kidney failureCHRIST[facility] – LongviewGlucose Zaxjp8025-88-89 05:35:00* Test Item Value Reference Range Interpretation Comments Glucose Level (test code = QZM6985) 275 74-118 H [facility] LongviewCalcium Mtcpt8878-34-73 05:35:00* Test Item Value Reference Range Interpretation Comments Calcium Level (test code = 22292-3) 8.1 8.4-10.2 L [facility] LongviewProthrombin Yufz4491-54-02 05:30:00* Test Item Value Reference Range Interpretation Comments Prothrombin Time (test code = 5902-2) 28.8 11.9-14.5 H [facility] LongviewProthromb Time International Ratio 2018-04-01 05:30:00* Test Item Value Reference Range Interpretation Comments Prothromb Time International Ratio (test code = 6301-6) 2.49 Oral Anticoagulant Therapy INR Values:1. Low Intensity Therapy 1.5 - 2.02 . Moderate Intensity Therapy 2.0 - 3.03. High Intensity Therapy(1) 2.5 - 3. 54. High Intensity Therapy(2) 3.0 - 4.05. Panic Value INR > 5.0 [facility] LongviewBlood Htluziw3692-25-59 16:55:00* Test Item Value Reference Range Interpretation Comments Blood Culture (test code = 94550724) NO GROWTH AFTER 72 HOURS [facility] LongviewThyroid Stimulating Hormone (TSH) 2018-03-31 06:21:00* Test Item Value Reference Range Interpretation Comments Thyroid Stimulating Hormone (TSH) (test code = 50274-1) 2.795 0.350-4.940 [facility] LongviewTotal Xunakfbdf0164-39-77 05:55:00* Test Item Value Reference Range Interpretation Comments Total Bilirubin (test code = 1975-2) 0.4 0.2-1.2 [facility] LongviewAspartate Amino Transf (AST/SGOT) 2018-03-31 05:55:00* Test Item Value Reference Range Interpretation Comments Aspartate Amino Transf (AST/SGOT) (test code = Aspartate Amino Transf (AST/SGOT)) 21 5-34 [facility] LongviewAlanine Aminotransferase (ALT/SGPT) 2018-03-31 05:55:00* Test Item Value Reference Range Interpretation Comments Alanine Aminotransferase (ALT/SGPT) (test code = 1742-6) 18 0-55 [facility] LongviewTotal Dippnnq4780-63-66 05:55:00* Test Item Value Reference Range Interpretation Comments Total Protein (test code = 2885-2) 6.4 6.5-8.1 L [facility] LongviewAlbumin2018-12-06 05:55:00* Test Item Value Reference Range Interpretation Comments Albumin (test code = 1751-7) 2.8 3.5-5.0 L [facility] LongviewGlobulin2018-12-06 05:55:00* Test Item Value Reference Range Interpretation Comments Globulin (test code = 30511-7) 3.6 2.3-3.5 H [facility] LongviewAlbumin/Globulin Xqyrx5363-04-46 05:55:00 * Test Item Value Reference Range Interpretation Comments Albumin/Globulin Ratio (test code = 1759-0) 0.8 0.8-2.0 [facility] LongviewAlkaline Docxiktykae1391-95-26 05:55:00* Test Item Value Reference Range Interpretation Comments Alkaline Phosphatase (test code = 6768-6) 64 40-150 [facility] LongviewTriglycerides Duogt1116-58-83 05:55:00* Test Item Value Reference Range Interpretation Comments Triglycerides Level (test code = 2571-8) 183 0-149 H [facility] LongviewCholesterol Uvixm5590-38-55 05:55:00* Test Item Value Reference Range Interpretation Comments Cholesterol Level (test code = 2093-3) 124 0-199 Less than 200 mg/dL Low Zqtj322 - 239 mg/dL Borderline Upob734 m g/dl and greater High Risk [facility] LongviewLDL Vjzecghwixn9304-06-30 05:55:00* Test Item Value Reference Range Interpretation Comments LDL Cholesterol (test code = 2089-1) 58 60-130 L [facility] Oiexzhjlyfm9999-71-14 05:55:00* Test Item Value Reference Range Interpretation Comments HDL Cholesterol (test code = 2085-9) 29 40-60 L [facility]viewCholesterol/HDL Shkgm7707-20-20 05:55:00 * Test Item Value Reference Range Interpretation Comments Cholesterol/HDL Ratio (test code = 9830-1) 4.3 3.9-4.7 [facility] LongviewTriglycerides Sbkwc0939-99-12 05:55:00* Test Item Value Reference Range Interpretation Comments Triglycerides Level (test code = 2571-8) 183 0-149 H [facility] LongviewCholesterol Azuuo6425-07-20 05:55:00* Test Item Value Reference Range Interpretation Comments Cholesterol Level (test code = 2093-3) 124 0-199 Less than 200 mg/dL Low Zqxp724 - 239 mg/dL Borderline Mgny418 m g/dl and greater High Risk [facility] LongviewLDL Bdsoncwnczh3145-90-39 05:55:00* Test Item Value Reference Range Interpretation Comments LDL Cholesterol (test code = 2089-1) 58 60-130 L [facility] Ymnwkcpinlt7330-67-47 05:55:00* Test Item Value Reference Range Interpretation Comments HDL Cholesterol (test code = 2085-9) 29 40-60 L [facility]viewCholesterol/HDL Nqyiu1054-64-79 05:55:00 * Test Item Value Reference Range Interpretation Comments Cholesterol/HDL Ratio (test code = 9830-1) 4.3 3.9-4.7 [facility] LongviewTriglycerides Gbexh3941-69-62 05:55:00* Test Item Value Reference Range Interpretation Comments Triglycerides Level (test code = 2571-8) 183 0-149 H [facility] LongviewCholesterol Bqvzo2470-33-05 05:55:00* Test Item Value Reference Range Interpretation Comments Cholesterol Level (test code = 2093-3) 124 0-199 Less than 200 mg/dL Low Cvlb545 - 239 mg/dL Borderline Cccf321 m g/dl and greater High Risk [facility] LongviewLDL Ruuakfxbjbd8978-91-51 05:55:00* Test Item Value Reference Range Interpretation Comments LDL Cholesterol (test code = 2089-1) 58 60-130 L [facility] [place] [facility] Yzqtsvaixtw3340-75-23 05:55:00* Test Item Value Reference Range Interpretation Comments HDL Cholesterol (test code = 2085-9) 29 40-60 L [facility]viewCholesterol/HDL Bjxqa8062-88-21 05:55:00 * Test Item Value Reference Range Interpretation Comments Cholesterol/HDL Ratio (test code = 9830-1) 4.3 3.9-4.7 [facility] LongviewTriglycerides Jicuw2486-53-84 05:55:00* Test Item Value Reference Range Interpretation Comments Triglycerides Level (test code = 2571-8) 183 0-149 H [facility] LongviewCholesterol Ogcmm7147-94-24 05:55:00* Test Item Value Reference Range Interpretation Comments Cholesterol Level (test code = 2093-3) 124 0-199 Less than 200 mg/dL Low Jhlp981 - 239 mg/dL Borderline Ydlp818 m g/dl and greater High Risk [facility] LongviewLDL Zjzdbyazwpw9720-89-89 05:55:00* Test Item Value Reference Range Interpretation Comments LDL Cholesterol (test code = 2089-1) 58 60-130 L [facility] [place] [facility] Huqvptechwu8049-12-61 05:55:00* Test Item Value Reference Range Interpretation Comments HDL Cholesterol (test code = 2085-9) 29 40-60 L [facility]viewCholesterol/HDL Boldc8725-65-46 05:55:00 * Test Item Value Reference Range Interpretation Comments Cholesterol/HDL Ratio (test code = 9830-1) 4.3 3.9-4.7 [facility]viewTriglycerides Lrsyl2112-18-05 05:55:00* Test Item Value Reference Range Interpretation Comments Triglycerides Level (test code = 2571-8) 183 0-149 H [facility] LongviewCholesterol Kwnwc1207-81-14 05:55:00* Test Item Value Reference Range Interpretation Comments Cholesterol Level (test code = 2093-3) 124 0-199 Less than 200 mg/dL Low Pnng148 - 239 mg/dL Borderline Jqfi128 m g/dl and greater High Risk [facility] LongviewLDL Xbhevnvwvgb4778-95-79 05:55:00* Test Item Value Reference Range Interpretation Comments LDL Cholesterol (test code = 2089-1) 58 60-130 L [facility] LongviewHDL Itbufnltlml5524-80-44 05:55:00* Test Item Value Reference Range Interpretation Comments HDL Cholesterol (test code = 2085-9) 29 40-60 L [facility]viewCholesterol/HDL Hamjn1440-82-33 05:55:00 * Test Item Value Reference Range Interpretation Comments Cholesterol/HDL Ratio (test code = 9830-1) 4.3 3.9-4.7 [facility]viewTriglycerides Oooke5185-91-53 05:55:00* Test Item Value Reference Range Interpretation Comments Triglycerides Level (test code = 2571-8) 183 0-149 H [facility]viewCholesterol Pmxtm0841-22-04 05:55:00* Test Item Value Reference Range Interpretation Comments Cholesterol Level (test code = 2093-3) 124 0-199 Less than 200 mg/dL Low Agqk458 - 239 mg/dL Borderline Qdeh495 m g/dl and greater High Risk [facility] LongviewLDL Kqjdxijezdz9603-84-73 05:55:00* Test Item Value Reference Range Interpretation Comments LDL Cholesterol (test code = 2089-1) 58 60-130 L [facility] [place] [facility] Imejelaomly3099-54-49 05:55:00* Test Item Value Reference Range Interpretation Comments HDL Cholesterol (test code = 2085-9) 29 40-60 L [facility]viewCholesterol/HDL Rmuae6891-13-83 05:55:00 * Test Item Value Reference Range Interpretation Comments Cholesterol/HDL Ratio (test code = 9830-1) 4.3 3.9-4.7 [facility] LongviewUrine Rpfgrqz1662-90-60 07:41:00* Test Item Value Reference Range Interpretation Comments Urine Culture (test code = 630-4) Organism: YEAST SPECIES [facility] SystemLOWER [facility]G JALO0253-88-81 18:08:00 [place] [address] [place] [address] Patient Name: TONEY NAVA MR #: [id number] : 1940 Age/Sex: 78/M Req #: [id number] Adm Physician: CARROLL LIMA MD Ordered by: CARROLL LIMA MD Report #: [id number] Location: MED/SURG2 Room/Bed: [facility] Procedure: [id number] D X/LOWER LEG LEFT Exam Date: 03/29/18 [...] TO: CARROLL LIMA MD ANKLE 3+ VIEWS XJQU3278-71-23 18:08:00 [facility] [address] [place] [address] Patient Name: TONEY NAVA MR #: [id number] : 1940 Age/Sex: 78/M Req #: [id number] [facility] Physician: CARROLL LIMA MD Ordered by: CARROLL LIMA MD Report #: [id number] Location: MED/SURG2 Room/Bed: [facility] Procedure: [id number] D X/ANKLE 3+ VIEWS LEFT Exam Date: [...] on 03/29/2018 6:12 PM Dictated By: CELINA MCKEON MD, MD 11 Transcr ibed By: ANAT on 03/29/181811 COPY TO: CARROLL LIMA MD Urine Xsjmt9649-48-71 18:00:00* Test Item Value Reference Range Interpretation Comments Urine Color (test code = 5778-6) YELLOW YELLOW [facility]viewUrine Aslpjaz5177-18-33 18:00:00* Test Item Value Reference Range Interpretation Comments Urine Clarity (test code = 11216-9) CLEAR CLEAR [facility] LongviewUrine Specific Byccfii3106-64-24 18:00:00 * Test Item Value Reference Range Interpretation Comments Urine Specific [place] (test code = 5811-5) 1.020 1.010-1.02 5 [facility]viewUrine vR1773-51-59 18:00:00* Test Item Value Reference Range Interpretation Comments Urine pH (test code = 15478-7) 6 5-7 [facility] Leukocyte Ydipswom5908-37-23 18:00:00* Test Item Value Reference Range Interpretation Comments Urine Leukocyte Esterase (test code = 5799-2) NEGATIVE NEGATIVE [facility] Dbikmyu1047-41-87 18:00:00* Test Item Value Reference Range Interpretation Comments Urine Nitrite (test code = 44186-8) NEGATIVE NEGATIVE [facility] Ywscbcs6201-07-86 18:00:00* Test Item Value Reference Range Interpretation Comments Urine Protein (test code = 5804-0) 2+ NEGATIVE H [facility] Glucose (UA)2018-03-28 18:00:00* Test Item Value Reference Range Interpretation Comments Urine Glucose (UA) (test code = 2349-9) 3+ NEGATIVE H [facility] Uqmartb1897-70-34 18:00:00* Test Item Value Reference Range Interpretation Comments Urine Ketones (test code = 08687-3) NEGATIVE NEGATIVE [facility] Kaualaoyebue0317-52-10 18:00:00* Test Item Value Reference Range Interpretation Comments Urine Urobilinogen (test code = 58825-0) 0.2 0.2-1 [facility]viewU[facility] Llrtptptk9052-73-52 18:00:00* Test Item Value Reference Range Interpretation Comments Urine Bilirubin (test code = 1978-6) NEGATIVE NEGATIVE [facility] Qbeha6339-30-33 18:00:00* Test Item Value Reference Range Interpretation Comments Urine Blood (test code = 40587-2) 1+ NEGATIVE H [facility]viewUrine LIB6536-45-75 18:00:00* Test Item Value Reference Range Interpretation Comments Urine WBC (test code = 5821-4) 6-10 0-5 H [facility]viewUrine JUP3562-90-39 18:00:00* Test Item Value Reference Range Interpretation Comments Urine RBC (test code = 88729-8) 0-5 0-5 [facility] Jjdnnrum1309-32-89 18:00:00* Test Item Value Reference Range Interpretation Comments Urine Bacteria (test code = 18309-3) RARE [facility] Epithelial Rtmmd2384-89-75 18:00:00 * Test Item Value Reference Range Interpretation Comments Urine Epithelial Cells (test code = 01770-2) [facility]ARE [facility] Zmdvb1175-72-97 18:00:00* Test Item Value Reference Range Interpretation Comments Urine Yeast (test code = 07453-8) FEW [facility] Unnov9898-95-80 18:00:00* Test Item Value Reference Range Interpretation Comments Urine Yeast (test code = 10344-4) FEW NONE [facility] Qztmm8944-37-15 18:00:00* Test Item Value Reference Range Interpretation Comments Urine Yeast (test code = 11083-3) FEW NONE [facility] Ctouj6084-08-45 18:00:00* Test Item Value Reference Range Interpretation Comments Urine Yeast (test code = 42270-5) FEW [facility] Bzkkc3716-98-33 18:00:00* Test Item Value Reference Range Interpretation Comments Urine Yeast (test code = 82688-5) FEW [facility] Erqhm8144-69-66 18:00:00* Test Item Value Reference Range Interpretation Comments Urine Yeast (test code = 33734-7) [facility] Time 2018-03-28 17:22:00* Test Item Value Reference Range Interpretation Comments Activated Partial Thromboplast Time (test code = 29541-8) 64.4 23.8-35.5 H [facility]viewL[facility] Acid Vwywx9467-10-29 17:22:00* Test Item Value Reference Range Interpretation Comments Lactic Acid Level (test code = Lactic Acid Level) 15.4 4.5- 19.8 [facility]viewAct[facility] Partial Thromboplast Time 2018-03-28 17:22:00* Test Item Value Reference Range Interpretation Comments Activated Partial Thromboplast Time (test code = 46016-9) 64.4 23.8-35.5 H [facility]view[facility]ST SINGLE (PORTABLE)2018-03-28 15:41:00 [facility] [address] [address] Patient Name: TONEY NAVA MR #: [id number] : 1940 Age/Sex: 78/M Req #: [id number] Adm Physician: Ordered by: SY WARNER MD Report #: [id number] Location: ER Room/Bed: Procedure: [id number] DX/CHEST [...] 3:43 PM Dictated By: RONALD SAVAGE MD [id number] Transcribed By: ANAT on 03/28/18 2158 COPY TO: SY WARNER MD Magnesium Qgbdk6647-94-48 05:29:00* Test Item Value Reference Range Interpretation Comments Magnesium Level (test code = 95348-8) 2.1 1.3-2.1 [facility] Iqmye5033-49-53 05:29:00* Test Item Value Reference Range Interpretation Comments Magnesium Level (test code = 93456-4) 2.1 1.3-2.1 [facility] Ajbti6002-27-53 05:29:00* Test Item Value Reference Range Interpretation Comments Magnesium Level (test code = 92110-5) 2.1 1.3-2.1 [facility]INGLE [facility]PORTABLE)2018-02-28 06:43:00 [facility] [address] [place] [address] Patient Name: TONEY NAVA MR #: [id number] : 1940 Age/Sex: 78/M Req #: [id number] Adm Physician: CARROLL LIMA MD Ordered by: DENIS GRANADOS MD Report #: [id number] Location: [facility] Room/Bed: [facility] Procedure: [id number] DX/CHEST SINGLE (PORTABLE) Exam Date: 02/28/18 Exam [...] on 02/28/18643 COPY TO: DENIS GRANADOS MD, [facility] Blood Sfaeesi0065-28-10 08:03:00* Test Item Value Reference Range Interpretation Comments Blood Culture (test code = 600-7) Organism: STAPHYLOCOCCUS SP COAG NEG [facility] Wjrvklp0817-85-82 08:03:00* Test Item Value Reference Range Interpretation Comments Blood Culture (test code = 600-7) Organism: STAPHYLOCOCCUS SP COAG NEG [facility] Mptoota6947-28-78 08:03:00* Test Item Value Reference Range Interpretation Comments Blood Culture (test code = 600-7) Organism: STAPHYLOCOCCUS SP COAG NEG [facility]2018-02-24 06:32:[address] [address] Patient Name: TONEY NAVA MR #: [id number] : 1940 Age/Sex: 77/M Req #: [id number] Adm Physician: CARROLL LIMA MD Ordered by: DENIS GRANADOS MD Report #: [id number] Location: [facility] Room/Bed: [address] [address] Procedure: [id number] DX/CHEST SINGLE (PORTABLE) Exam Date: 02/24/18 Exam [...] on 02/24/18632 COPY TO: DENIS GRANADOS MD, [facility] Creatine Lszjtk1534-89-51 05:41:00* Test Item Value Reference Range Interpretation Comments Creatine Kinase (test code = 2157-6) 470 30-200 H [facility]viewCreatine Iznvgt4086-97-09 05:41:00* Test Item Value Reference Range Interpretation Comments Creatine Kinase (test code = 2157-6) 470 30-200 H [facility]viewHemoglobin A1c Kyitkud5248-98-47 06:43:00 * Test Item Value Reference Range Interpretation Comments Hemoglobin A1c Percent (test code = Hemoglobin A1c Percent) 12.4 4.0-7.0 H [facility]viewArterial Blood cU2282-63-37 14:00:00* Test Item Value Reference Range Interpretation Comments Arterial Blood pH (test code = 2744-1) 7.37 7.31-7.41 [facility]viewArterial Blood Partial Pressure CO2 2018-02-22 14:00:00* Test Item Value Reference Range Interpretation Comments Arterial Blood Partial Pressure CO2 (test code = 2018-) 58 41-51 H [facility]viewArterial Blood Partial Pressure O2 2018-02-22 14:00:00* Test Item Value Reference Range Interpretation Comments Arterial Blood Partial Pressure O2 (test code = 2018-) 151 80-105 H [facility]viewArterial Blood IKH32548-45-25 14:00:00* Test Item Value Reference Range Interpretation Comments Arterial Blood HCO3 (test code = 1960-4) 34 23-28 H [facility]viewArterial Blood Base Wvmijg8467-80-73 14:00:00* Test Item Value Reference Range Interpretation Comments Arterial Blood Base Excess (test code = 1925-7) 8.0 -2-3 H [facility]viewArterial Blood Oxygen Saturation 2018-02-22 14:00:00* Test Item Value Reference Range Interpretation Comments Arterial Blood Oxygen Saturation (test code = 2708-6) 99.0 95-98 H [facility] LongviewFiO22018-10-30 14:00:00* Test Item Value Reference Range Interpretation Comments FiO2 (test code = FiO2) 60 BIPAP 18/8 RR 12DREW FROM LEFT RADIALCHI [facility] Arterial Blood mS8393-68-00 14:00:00* Test Item Value Reference Range Interpretation Comments Arterial Blood pH (test code = 2744-1) 7.37 7.31-7.41 [facility]viewArterial Blood Partial Pressure CO2 2018-02-22 14:00:00* Test Item Value Reference Range Interpretation Comments Arterial Blood Partial Pressure CO2 (test code = 2019-8) 58 41-51 H [facility]viewArterial Blood Partial Pressure O2 2018-02-22 14:00:00* Test Item Value Reference Range Interpretation Comments Arterial Blood Partial Pressure O2 (test code = 2019-8) 151 80-105 H [facility]viewArterial Blood UVR49432-60-59 14:00:00* Test Item Value Reference Range Interpretation Comments Arterial Blood HCO3 (test code = 1960-4) 34 23-28 H [facility]viewArterial Blood Base Srpbmu7099-08-07 14:00:00* Test Item Value Reference Range Interpretation Comments Arterial Blood Base Excess (test code = 1925-7) 8.0 -2-3 H [facility]viewArterial Blood Oxygen Saturation 2018-02-22 14:00:00* Test Item Value Reference Range Interpretation Comments Arterial Blood Oxygen Saturation (test code = 2708-6) 99.0 95-98 H [facility] LongviewFiO22018-10-30 14:00:00* Test Item Value Reference Range Interpretation Comments FiO2 (test code = FiO2) 60 BIPAP 18/8 RR 12DREW FROM LEFT [facility] Arterial Blood [id number] 14:00:00* Test Item Value Reference Range Interpretation Comments Arterial Blood pH (test code = 2744-1) 7.37 7.31-7.41 [facility]viewArterial Blood Partial Pressure CO2 2018-02-22 14:00:00* Test Item Value Reference Range Interpretation Comments Arterial Blood Partial Pressure CO2 (test code = 2018-) 58 41-51 H [facility]viewArterial Blood Partial Pressure O2 2018-02-22 14:00:00* Test Item Value Reference Range Interpretation Comments Arterial Blood Partial Pressure O2 (test code = 2018-11) 151 80-105 H [facility]viewArterial Blood [id number] 14:00:00* Test Item Value Reference Range Interpretation Comments Arterial Blood HCO3 (test code = 1960-4) 34 23-28 H [facility]viewArterial Blood Base Ggvxxl5223-95-27 14:00:00* Test Item Value Reference Range Interpretation Comments Arterial Blood Base Excess (test code = 1925-7) 8.0 -2-3 H [facility]viewArterial Blood Oxygen Saturation 2018-02-22 14:00:00* Test Item Value Reference Range Interpretation Comments Arterial Blood Oxygen Saturation (test code = 2708-6) 99.0 95-98 H [facility] LongviewFiO22018-10-30 14:00:00* Test Item Value Reference Range Interpretation Comments FiO2 (test code = FiO2) 60 BIPAP 18/8 RR 12DREW FROM LEFT [facility] Arterial Blood nB3030-31-44 14:00:00* Test Item Value Reference Range Interpretation Comments Arterial Blood pH (test code = 2744-1) 7.37 7.31-7.41 [facility]viewArterial Blood Partial Pressure CO2 2018-02-22 14:00:00* Test Item Value Reference Range Interpretation Comments Arterial Blood Partial Pressure CO2 (test code = 2018-) 58 41-51 H [facility]viewArterial Blood Partial Pressure O2 2018-02-22 14:00:00* Test Item Value Reference Range Interpretation Comments Arterial Blood Partial Pressure O2 (test code = 2019-8) 151 80-105 H [facility]viewArterial Blood [id number] 14:00:00* Test Item Value Reference Range Interpretation Comments Arterial Blood HCO3 (test code = 1960-4) 34 23-28 H [facility]viewArterial Blood Base Kdbqmk8778-33-77 14:00:00* Test Item Value Reference Range Interpretation Comments Arterial Blood Base Excess (test code = 1925-7) 8.0 -2-3 H [facility]viewArterial Blood Oxygen Saturation 2018-02-22 14:00:00* Test Item Value Reference Range Interpretation Comments Arterial Blood Oxygen Saturation (test code = 2708-6) 99.0 95-98 H [facility] LongviewFiO22018-10-30 14:00:00* Test Item Value Reference Range Interpretation Comments FiO2 (test code = FiO2) 60 BIPAP 18/8 RR 12DREW FROM LEFT RADIALCHRISTUS [facility] Arterial Blood [id number] 14:00:00* Test Item Value Reference Range Interpretation Comments Arterial Blood pH (test code = 2744-1) 7.37 7.31-7.41 [facility]viewArterial Blood Partial Pressure CO2 2018-02-22 14:00:00* Test Item Value Reference Range Interpretation Comments Arterial Blood Partial Pressure CO2 (test code = 2019-8) 58 41-51 H [facility]viewArterial Blood Partial Pressure O2 2018-02-22 14:00:00* Test Item Value Reference Range Interpretation Comments Arterial Blood Partial Pressure O2 (test code = 2019-8) 151 80-105 H [facility]viewArterial Blood OUM64327-98-07 14:00:00* Test Item Value Reference Range Interpretation Comments Arterial Blood HCO3 (test code = 1960-4) 34 23-28 H [facility]viewArterial Blood Base Zpaptx0266-93-37 14:00:00* Test Item Value Reference Range Interpretation Comments Arterial Blood Base Excess (test code = 1925-7) 8.0 -2-3 H [facility]viewArterial Blood Oxygen Saturation 2018-02-22 14:00:00* Test Item Value Reference Range Interpretation Comments Arterial Blood Oxygen Saturation (test code = 2708-6) 99.0 95-98 H [facility] LongviewFiO22018-10-30 14:00:00* Test Item Value Reference Range Interpretation Comments FiO2 (test code = FiO2) 60 BIPAP 18/8 RR 12DREW FROM LEFT [facility] Arterial Blood [id number] 14:00:00* Test Item Value Reference Range Interpretation Comments Arterial Blood pH (test code = 2744-1) 7.37 7.31-7.41 [facility]viewArterial Blood Partial Pressure CO2 2018-02-22 14:00:00* Test Item Value Reference Range Interpretation Comments Arterial Blood Partial Pressure CO2 (test code = 2018-8) 58 41-51 H [facility]viewArterial Blood Partial Pressure O2 2018-02-22 14:00:00* Test Item Value Reference Range Interpretation Comments Arterial Blood Partial Pressure O2 (test code = 2019-8) 151 80-105 H [facility]viewArterial Blood VWZ66096-83-05 14:00:00* Test Item Value Reference Range Interpretation Comments Arterial Blood HCO3 (test code = 1960-4) 34 23-28 H [facility]viewArterial Blood Base Nwwntg7891-18-29 14:00:00* Test Item Value Reference Range Interpretation Comments Arterial Blood Base Excess (test code = 1925-7) 8.0 -2-3 H [facility]viewArterial Blood Oxygen Saturation 2018-02-22 14:00:00* Test Item Value Reference Range Interpretation Comments Arterial Blood Oxygen Saturation (test code = 2708-6) 99.0 95-98 H [facility] LongviewFiO22018-10-30 14:00:00* Test Item Value Reference Range Interpretation Comments FiO2 (test code = FiO2) 60 BIPAP 18/8 RR 12DREW FROM LEFT [facility] Creatine Kinase [id number] 09:42:00* Test Item Value Reference Range Interpretation Comments Creatine Kinase MB (test code = 84850-4) 4.70 0-5.0 [facility] LongviewTroponin I9875-22-04 09:42:00* Test Item Value Reference Range Interpretation Comments Troponin I (test code = VIA3544) 0.117 0-0.300 [facility] LongviewCreatine Kinase QE8127-68-03 09:42:00* Test Item Value Reference Range Interpretation Comments Creatine Kinase MB (test code = 09113-5) 4.70 0-5.0 [facility] LongviewTroponin Z4538-33-50 09:42:00* Test Item Value Reference Range Interpretation Comments Troponin I (test code = MHH5202) 0.117 0-0.300 [facility]viewCHEST SINGLE (PORTABLE)2018-02-22 02:55:00 [place] [address] Patient Name: TONEY NAVA MR #: [id number] : 1940 Age/Sex: 77/M Req #: [id number] Adm Physician: Ordered by: TOM HERRERA MD Report #: [id number] Location: ER Room/Bed: Procedure: [id number] 0013 DX/CHEST [...] Virus Types A,B Antigen (test code = 89809-8) NEGATIVE NEGATIVE [facility] SystemCT, LIMITED/LOCALIZED DBFFFS-[id number] 13:48:00Reason for Exam:->lung noduleFINAL REPORT CT minimal. [...] MDReport Verified Date/Time: 08/25 13:48:03 Reading Location: [facility] B1 C013Y CT Body Reading Room [facility] signed by: SHAYAN IRENE M.D. on 08/25/2017 01:48 PM PT/OPYS9923-45-60 11:46:00* Test Item Value Reference Range Interpretation [...] for pat ients with mechanical heart valves.PLATELET VBEMT9413-97-79 11:39:00* Test Item Value Reference Range Interpretation Comments PLATELET COUNT (BEAKER) (test code = 756) 182 K/CU MM 150-450 Blood Vfqxgfu5571-41-27 13:32:00* Test Item Value Reference Range Interpretation Comments Blood Culture (test code = 02631037) NO GROWTH AFTER 72 HOURS [facility] LongviewBedside Xhjuzth4533-01-69 11:38:00* Test Item Value Reference Range Interpretation Comments Bedside Glucose (test code = 28617-7) 271 70-120 H Meter ID: [id number] Good Shepherd [facility] Center – LongviewProthrombin Time 2017-07-16 08:41:00* Test Item Value Reference Range Interpretation Comments Prothrombin Time (test code = 5902-2) 21.1 11.9-14.5 H [facility] LongviewProthromb Time International Ratio 2017-07-16 08:41:00* Test Item Value Reference Range Interpretation Comments Prothromb Time International Ratio (test code = 6301-6) 1.97 Oral Anticoagulant Therapy INR Values:1. Low Intensity Therapy 1.5 - 2.02 . Moderate Intensity Therapy 2.0 - 3.03. High Intensity Therapy(1) 2.5 - 3. 54. High Intensity Therapy(2) 3.0 - 4.05. Panic Value INR > 5.0 [facility] LongviewBlood Jpqqcse6621-67-03 12:52:00* Test Item Value Reference Range Interpretation Comments Blood Culture (test code = 600-7) Organism: STAPHYLOCOCCUS AURICULA RIS [facility] Brownwoododium Lexps9823-53-01 07:36:00* Test Item Value Reference Range Interpretation Comments Sodium Level (test code = 2951-2) 140 136-145 [facility] LongviewPotassium Eambj2655-87-71 07:36:00* Test Item Value Reference Range Interpretation Comments Potassium Level (test code = 2823-3) 3.6 3.5-5.1 [facility] LongviewChloride Alwua5671-67-37 07:36:00* Test Item Value Reference Range Interpretation Comments Chloride Level (test code = 2075-0) 91 98-107 L [facility] LongviewCarbon Dioxide Minxk8878-10-19 07:36:00* Test Item Value Reference Range Interpretation Comments Carbon Dioxide Level (test code = 2028-9) 39 22-29 H [facility] LongviewAnion Xlc9312-99-02 07:36:00* Test Item Value Reference Range Interpretation Comments Anion Gap (test code = 34648-5) 13.6 8-16 [facility] LongviewBlood Urea Ylgclyxf4397-03-18 07:36:00* Test Item Value Reference Range Interpretation Comments Blood Urea Nitrogen (test code = 3094-0) 52 7-26 H [facility] LongviewCreatinine2018-03-22 07:36:00* Test Item Value Reference Range Interpretation Comments Creatinine (test code = 2160-0) 1.79 0.72-1.25 H [facility] LongviewBUN/Creatinine Jaglf6073-54-51 07:36:00* Test Item Value Reference Range Interpretation Comments BUN/Creatinine Ratio (test code = 3097-3) 29 6-25 H [facility] LongviewEstimat Glomerular Filtration Rate 2017-07-15 07:36:00* Test Item Value Reference Range Interpretation Comments Estimat Glomerular Filtration Rate (test code = 51968-4) 37 >60 L Ranges were taken from the National Kidney Disease Education Program and the [facility] literature.Reference ranges:60 or greater: Uadbki25-59 ( for 3 consecutive months): Chronic kidney disease 15 or less: Kidney failureCHRISTUS Good Shepherd Medical Center – LongviewGlucose Zpoyq7576-08-95 07:36:00* Test Item Value Reference Range Interpretation Comments Glucose Level (test code = YVL3178) 110 74-118 [facility] LongviewCalcium Krroe6750-92-32 07:36:00* Test Item Value Reference Range Interpretation Comments Calcium Level (test code = 54314-9) 8.6 8.4-10.2 [facility] LongviewMagnesium Qgcpz8554-94-64 07:36:00* Test Item Value Reference Range Interpretation Comments Magnesium Level (test code = 29878-6) 1.9 1.3-2.1 [facility] LongviewCreatine Tbwluf2810-32-28 07:36:00* Test Item Value Reference Range Interpretation Comments Creatine Kinase (test code = 2157-6) 433 30-200 H [facility] LongviewWhite Blood Jfwpw2826-74-48 06:56:00* Test Item Value Reference Range Interpretation Comments White Blood Count (test code = 6690-2) 9.00 4.8-10.8 [facility] LongviewRed Blood Erbiz0237-81-14 06:56:00* Test Item Value Reference Range Interpretation Comments Red Blood Count (test code = 789-8) 4.61 4.3-5.7 [facility] LongviewHemoglobin2018-03-21 06:56:00* Test Item Value Reference Range Interpretation Comments Hemoglobin (test code = 07686-2) 12.3 14.0-18.0 L [facility] LongviewHematocrit2018-03-21 06:56:00* Test Item Value Reference Range Interpretation Comments Hematocrit (test code = 4544-3) 39.1 38.2-49.6 [facility] LongviewMean Corpuscular Rallzs8057-11-14 06:56:00* Test Item Value Reference Range Interpretation Comments Mean Corpuscular Volume (test code = 787-2) 84.8 81-99 [facility] LongviewMean Corpuscular Fitnbuhetw3272-47-33 06:56:00* Test Item Value Reference Range Interpretation Comments Mean Corpuscular Hemoglobin (test code = 785-6) 26.7 28-32 L [facility] LongviewMean Corpuscular Hemoglobin Concent 2017-07-14 06:56:00* Test Item Value Reference Range Interpretation Comments Mean Corpuscular Hemoglobin Concent (test code = 786-4) 31.5 31-35 [facility] LongviewRed Cell Distribution Yqigj5545-77-87 06:56:00* Test Item Value Reference Range Interpretation Comments Red Cell Distribution Width (test code = 52325-3) 15.1 11.7 -14.4 H [facility] LongviewPlatelet Sstbv1139-87-05 06:56:00* Test Item Value Reference Range Interpretation Comments Platelet Count (test code = 777-3) 130 140-360 L [facility] LongviewNeutrophils (%) (Auto)2017-07-14 06:56:00 * Test Item Value Reference Range Interpretation Comments Neutrophils (%) (Auto) (test code = 99812-9) 65.2 38.7-80.0 [facility] LongviewLymphocytes (%) (Auto)2017-07-14 06:56:00 * Test Item Value Reference Range Interpretation Comments Lymphocytes (%) (Auto) (test code = 736-9) 17.4 18.0-39.1 L [facility] LongviewMonocytes (%) (Auto)2017-07-14 06:56:00* Test Item Value Reference Range Interpretation Comments Monocytes (%) (Auto) (test code = 5905-5) 11.9 4.4-11.3 H [facility] LongviewEosinophils (%) (Auto)2017-07-14 06:56:00 * Test Item Value Reference Range Interpretation Comments Eosinophils (%) (Auto) (test code = 713-8) 4.8 0.0-6.0 [facility] LongviewBasophils (%) (Auto)2017-07-14 06:56:00* Test Item Value Reference Range Interpretation Comments Basophils (%) (Auto) (test code = 706-2) 0.3 0.0-1.0 [facility] LongviewIM GRANULOCYTES %2017-07-14 06:56:00* Test Item Value Reference Range Interpretation Comments IM GRANULOCYTES % (test code = IM GRANULOCYTES %) 0.4 0.0- 1.0 [facility] LongviewNeutrophils # (Auto)2017-07-14 06:56:00* Test Item Value Reference Range Interpretation Comments Neutrophils # (Auto) (test code = 751-8) 5.9 2.1-6.9 [facility] LongviewLymphocytes # (Auto)2017-07-14 06:56:00* Test Item Value Reference Range Interpretation Comments Lymphocytes # (Auto) (test code = 59912-9) 1.6 1.0-3.2 [facility] LongviewMonocytes # (Auto)2017-07-14 06:56:00* Test Item Value Reference Range Interpretation Comments Monocytes # (Auto) (test code = 742-7) 1.1 0.2-0.8 H [facility] LongviewEosinophils # (Auto)2017-07-14 06:56:00* Test Item Value Reference Range Interpretation Comments Eosinophils # (Auto) (test code = 711-2) 0.4 0.0-0.4 [facility] LongviewBasophils # (Auto)2017-07-14 06:56:00* Test Item Value Reference Range Interpretation Comments Basophils # (Auto) (test code = 704-7) 0.0 0.0-0.1 [facility] LongviewAbsolute Immature Granulocyte (auto 2017-07-14 06:56:00* Test Item Value Reference Range Interpretation Comments Absolute Immature Granulocyte (auto (jeyson t code = Absolute Immature Granulocyte (auto) 0.04 0-0.1 [facility] LongviewTriglycerides Lifxf6737-41-67 07:14:00* Test Item Value Reference Range Interpretation Comments Triglycerides Level (test code = 2571-8) 156 0-149 H [facility] LongviewCholesterol Ifpbh8708-23-66 07:14:00* Test Item Value Reference Range Interpretation Comments Cholesterol Level (test code = 2093-3) 119 0-199 Less than 200 mg/dL Low Zket426 - 239 mg/dL Borderline Sigd000 m g/dl and greater High Risk [facility] LongviewLDL Phxiwtynpcp0349-93-48 07:14:00* Test Item Value Reference Range Interpretation Comments LDL Cholesterol (test code = 2089-1) 60 60-130 [facility] LongviewHDL Aykslorxbzk5971-04-94 07:14:00* Test Item Value Reference Range Interpretation Comments HDL Cholesterol (test code = 2085-9) 28 40-60 L [facility]olesterol/HDL Rsgif9314-87-63 07:14:00 * Test Item Value Reference Range Interpretation Comments Cholesterol/HDL Ratio (test code = 9830-1) 4.3 3.9-4.7 [facility]viewHemoglobin A1c Gwcmmcb5224-29-67 07:11:00 * Test Item Value Reference Range Interpretation Comments Hemoglobin A1c Percent (test code = Hemoglobin A1c Percent) 10.8 4.0-7.0 H [facility]viewDifferential Total Cells Counted 2017-07-11 14:04:00* Test Item Value Reference Range Interpretation Comments Differential Total Cells Counted (test code = Braeden tial Total Cells Counted) 100 [facility]viewNeutrophils % (Manual)2017-07-11 14:04:00 * Test Item Value Reference Range Interpretation Comments Neutrophils % (Manual) (test code = 27903-3) 93 40-74 H [facility]viewBand Neutrophils %2017-07-11 14:04:00* Test Item Value Reference Range Interpretation Comments Band Neutrophils % (test code = 764-1) 1 [facility]viewLymphocytes % (Manual)2017-07-11 14:04:00 * Test Item Value Reference Range Interpretation Comments Lymphocytes % (Manual) (test code = 737-7) 4 19-48 L [facility]viewMonocytes % (Manual)2017-07-11 14:04:00* Test Item Value Reference Range Interpretation Comments Monocytes % (Manual) (test code = 744-3) 2 3.4-9.0 L [facility]viewPlatelet Awjcprue0624-79-02 14:04:00* Test Item Value Reference Range Interpretation Comments Platelet Estimate (test code = 49235-6) ADEQUATE [facility] LongviewPlatelet Morphology Wntppjb4884-20-23 14:04:00* Test Item Value Reference Range Interpretation Comments Platelet Morphology Comment (test code = 76740-1) NORMAL [facility]viewRed Cell Morphology Gseibwh0345-43-06 14:04:00* Test Item Value Reference Range Interpretation Comments Red Cell Morphology Comment (test code = 6742-1) NORMAL [facility]viewDifferential Total Cells Counted 2017-07-11 14:04:00* Test Item Value Reference Range Interpretation Comments Differential Total Cells Counted (test code = Differradha tial Total Cells Counted) 100 [facility]viewNeutrophils % (Manual)2017-07-11 14:04:00 * Test Item Value Reference Range Interpretation Comments Neutrophils % (Manual) (test code = 35286-1) 93 40-74 H [facility]Band Neutrophils %2017-07-11 14:04:00* Test Item Value Reference Range Interpretation Comments Band Neutrophils % (test code = 764-1) 1 [facility]viewLymphocytes % (Manual)2017-07-11 14:04:00 * Test Item Value Reference Range Interpretation Comments Lymphocytes % (Manual) (test code = 737-7) 4 19-48 L [facility]viewMonocytes % (Manual)2017-07-11 14:04:00* Test Item Value Reference Range Interpretation Comments Monocytes % (Manual) (test code = 744-3) 2 3.4-9.0 L [facility]viewPlatelet Rylomzvy6055-31-68 14:04:00* Test Item Value Reference Range Interpretation Comments Platelet Estimate (test code = 87383-4) ADEQUATE [facility]viewPlatelet Morphology Ltuvqct5181-32-67 14:04:00* Test Item Value Reference Range Interpretation Comments Platelet Morphology Comment (test code = 92591-8) NORMAL [facility]viewRed Cell Morphology Vuryeiw5935-83-07 14:04:00* Test Item Value Reference Range Interpretation Comments Red Cell Morphology Comment (test code = 6742-1) NORMAL [facility]viewDifferential Total Cells Counted 2017-07-11 14:04:00* Test Item Value Reference Range Interpretation Comments Differential Total Cells Counted (test code = Braeden roa Total Cells Counted) 100 [facility]viewNeutrophils % (Manual)2017-07-11 14:04:00 * Test Item Value Reference Range Interpretation Comments Neutrophils % (Manual) (test code = 40501-2) 93 40-74 H [facility]Band Neutrophils %2017-07-11 14:04:00* Test Item Value Reference Range Interpretation Comments Band Neutrophils % (test code = 764-1) 1 [facility]viewLymphocytes % (Manual)2017-07-11 14:04:00 * Test Item Value Reference Range Interpretation Comments Lymphocytes % (Manual) (test code = 737-7) 4 19-48 L [facility]viewMonocytes % (Manual)2017-07-11 14:04:00* Test Item Value Reference Range Interpretation Comments Monocytes % (Manual) (test code = 744-3) 2 3.4-9.0 L [facility]viewPlatelet Uiauflkv1978-85-33 14:04:00* Test Item Value Reference Range Interpretation Comments Platelet Estimate (test code = 05137-1) ADEQUATE [facility]viewPlatelet Morphology Wxduyiy1016-80-48 14:04:00* Test Item Value Reference Range Interpretation Comments Platelet Morphology Comment (test code = 73114-5) NORMAL [facility]viewRed Cell Morphology Ktbwywd6111-55-28 14:04:00* Test Item Value Reference Range Interpretation Comments Red Cell Morphology Comment (test code = 6742-1) NORMAL [facility] LongviewActivated Partial Thromboplast Time 2017-07-11 10:09:00* Test Item Value Reference Range Interpretation Comments Activated Partial Thromboplast Time (test code = 49754-5) 58.7 23.8-35.5 H [facility] LongviewLactic Acid Wwvxz6739-75-86 10:07:00* Test Item Value Reference Range Interpretation Comments Lactic Acid Level (test code = Lactic Acid Level) 33.0 4.5- 19.8 H [facility]viewCreatine Kinase DF2827-01-82 10:07:00* Test Item Value Reference Range Interpretation Comments Creatine Kinase MB (test code = 68050-7) 16.90 0-5.0 H [facility]viewTroponin C1508-23-01 10:07:00* Test Item Value Reference Range Interpretation Comments Troponin I (test code = GKW1941) 0.024 0-0.300 [facility]viewPhosphorus Rjiky5684-26-54 10:06:00* Test Item Value Reference Range Interpretation Comments Phosphorus Level (test code = RQW4161) 3.5 2.3-4.7 [facility] LongviewTotal Bsinihbib0104-15-62 10:06:00* Test Item Value Reference Range Interpretation Comments Total Bilirubin (test code = 1975-2) 0.5 0.2-1.2 [facility]viewAspartate Amino Transf (AST/SGOT) 2017-07-11 10:06:00* Test Item Value Reference Range Interpretation Comments Aspartate Amino Transf (AST/SGOT) (test code = Aspartate Amino Transf (AST/SGOT)) 49 5-34 H [facility] LongviewAlanine Aminotransferase (ALT/SGPT) 2017-07-11 10:06:00* Test Item Value Reference Range Interpretation Comments Alanine Aminotransferase (ALT/SGPT) (test code = 1742-6) 31 0-55 [facility]viewTotal Mpmirqg7315-51-03 10:06:00* Test Item Value Reference Range Interpretation Comments Total Protein (test code = 2885-2) 7.3 6.5-8.1 [facility] LongviewAlbumin2018-03-18 10:06:00* Test Item Value Reference Range Interpretation Comments Albumin (test code = 1751-7) 3.2 3.5-5.0 L [facility] LongviewGlobulin2018-03-18 10:06:00* Test Item Value Reference Range Interpretation Comments Globulin (test code = 45227-9) 4.1 2.3-3.5 H [facility] LongviewAlbumin/Globulin Flszx2403-08-74 10:06:00 * Test Item Value Reference Range Interpretation Comments Albumin/Globulin Ratio (test code = 1759-0) 0.8 0.8-2.0 [facility]viewAlkaline Otjldwszapx0831-03-52 10:06:00* Test Item Value Reference Range Interpretation Comments Alkaline Phosphatase (test code = 6768-6) 76 40-150 [facility]viewPhosphorus Okrtd9405-96-21 10:06:00* Test Item Value Reference Range Interpretation Comments Phosphorus Level (test code = JPX7846) 3.5 2.3-4.7 [facility]viewPhosphorus Qvttr0152-41-52 10:06:00* Test Item Value Reference Range Interpretation Comments Phosphorus Level (test code = NXI0870) 3.5 2.3-4.7 [facility]viewArterial Blood dN9172-73-85 14:02:00* Test Item Value Reference Range Interpretation Comments Arterial Blood pH (test code = 2744-1) 7.41 7.31-7.41 [facility]viewArterial Blood Partial Pressure CO2 2017-07-10 14:02:00* Test Item Value Reference Range Interpretation Comments Arterial Blood Partial Pressure CO2 (test code = 2019-8) 57 41-51 H [facility]viewArterial Blood Partial Pressure O2 2017-07-10 14:02:00* Test Item Value Reference Range Interpretation Comments Arterial Blood Partial Pressure O2 (test code = 2019-8) 96 80-105 [facility]viewArterial Blood QYW19426-70-89 14:02:00* Test Item Value Reference Range Interpretation Comments Arterial Blood HCO3 (test code = 1960-4) 36 23-28 H [facility]viewArterial Blood Base Jpxqzi0346-31-86 14:02:00* Test Item Value Reference Range Interpretation Comments Arterial Blood Base Excess (test code = 1925-7) 12.0 -2-3 H [facility]viewArterial Blood Oxygen Saturation 2017-07-10 14:02:00* Test Item Value Reference Range Interpretation Comments Arterial Blood Oxygen Saturation (test code = 2708-6) 97.0 95-98 [facility]viewUrine ANI9083-09-89 09:58:00* Test Item Value Reference Range Interpretation Comments Urine WBC (test code = 5821-4) 0-5 0-5 [facility] LongviewUrine AKI7270-36-27 09:58:00* Test Item Value Reference Range Interpretation Comments Urine RBC (test code = 45387-5) 6-10 0-5 H [facility]viewUrine Exvckgpe0820-91-00 09:58:00* Test Item Value Reference Range Interpretation Comments Urine Bacteria (test code = 01558-6) FEW NONE [facility] LongviewUrine Epithelial Rtjxt9890-82-89 09:58:00 * Test Item Value Reference Range Interpretation Comments Urine Epithelial Cells (test code = 06219-6) FEW NONE [facility] LongviewUrine Gpyje0115-79-90 09:55:00* Test Item Value Reference Range Interpretation Comments Urine Color (test code = 5778-6) YELLOW YELLOW [facility]viewUrine Wflxiox6903-95-77 09:55:00* Test Item Value Reference Range Interpretation Comments Urine Clarity (test code = 62092-4) HAZY CLEAR [facility] LongviewUrine Specific Brxdnkj4522-84-16 09:55:00 * Test Item Value Reference Range Interpretation Comments Urine Specific Belden (test code = 5811-5) 1.010 1.010-1.02 5 [facility] LongviewUrine jG0587-18-88 09:55:00* Test Item Value Reference Range Interpretation Comments Urine pH (test code = 77662-4) 7 5-7 [facility]viewUrine Leukocyte Miciuycb7875-54-37 09:55:00* Test Item Value Reference Range Interpretation Comments Urine Leukocyte Esterase (test code = 5799-2) NEGATIVE NEGATIVE [facility]viewUrine Ghmzyws0738-85-95 09:55:00* Test Item Value Reference Range Interpretation Comments Urine Nitrite (test code = 99989-4) NEGATIVE NEGATIVE [facility] LongviewUrine Faxtfge0626-09-11 09:55:00* Test Item Value Reference Range Interpretation Comments Urine Protein (test code = 5804-0) 1+ NEGATIVE H [facility] LongviewUrine Glucose (UA)2017-07-10 09:55:00* Test Item Value Reference Range Interpretation Comments Urine Glucose (UA) (test code = 2349-9) 2+ NEGATIVE H [facility] LongviewUrine Fmihaco4021-96-63 09:55:00* Test Item Value Reference Range Interpretation Comments Urine Ketones (test code = 86276-8) NEGATIVE NEGATIVE [facility]viewUrine Jfnqjzqgqflp1715-47-38 09:55:00* Test Item Value Reference Range Interpretation Comments Urine Urobilinogen (test code = 70674-0) 1 0.2-1 [facility]viewUrine Uaudbxdfb7633-43-36 09:55:00* Test Item Value Reference Range Interpretation Comments Urine Bilirubin (test code = 1978-6) NEGATIVE NEGATIVE [facility]viewUrine Lnabd3028-11-97 09:55:00* Test Item Value Reference Range Interpretation Comments Urine Blood (test code = 19100-4) 2+ NEGATIVE H [facility] LongviewThyroid Stimulating Hormone (TSH) 2017-07-10 09:09:00* Test Item Value Reference Range Interpretation Comments Thyroid Stimulating Hormone (TSH) (test code = 57956-1) 1.793 0.350-4.940 [facility]viewB-Type Natriuretic Bxddrxa6893-48-69 08:58:00* Test Item Value Reference Range Interpretation Comments B-Type Natriuretic Peptide (test code = 92022-0) 42.8 0-100 [facility]viewB-Type Natriuretic Xlsacer2947-21-19 08:58:00* Test Item Value Reference Range Interpretation Comments B-Type Natriuretic Peptide (test code = 83183-7) 42.8 0-100 [facility]viewB-Type Natriuretic Bvpkwxu0862-73-24 08:58:00* Test Item Value Reference Range Interpretation Comments B-Type Natriuretic Peptide (test code = 12544-8) 42.8 0-100 [facility] LongviewLipase2018-03-17 08:51:00* Test Item Value Reference Range Interpretation Comments Lipase (test code = 3040-3) 61 8-78 [facility]viewLipase2018-03-17 08:51:00* Test Item Value Reference Range Interpretation Comments Lipase (test code = 3040-3) 61 8-78 [facility] LongviewLipase2018-03-17 08:51:00* Test Item Value Reference Range Interpretation Comments Lipase (test code = 3040-3) 61 8-78 [facility]viewCHE[facility]) [facility] [address] [address] Patient Name: TONEY NAVA MR #: [id number] : 1940 Age/Sex: 77/M Req #: [id number] Adm Physician: CARROLL LIMA MD Ordered by: DENIS GRANADOS MD Report #: [id number] Loc ation: MED/SURG2 Room/Bed: [facility] Procedure: [id number] DX/CHEST SINGLE (PORTABLE) Exam Date: 07/13/17 Exam Time: 0610 REPORT STATUS: Signed EXAM: CHEST SINGLE (PORTABLE), AP 1 v iew INDICATION: Congestive heart failure COMPARISON: AP view of the chest [facility] 2017 FINDINGS: LINES/TUBES: None LUNGS: Indeterminate opacit [...] Dictated By: UMER DE LOS SANTOS MD 0644 Trans cribed By: ANAT on 07/13/17643 COPY TO: DENIS GRANADOS MD CHEST SINGLE (PORTABLE) [place] [address] Patient Name: TONEY NAVA MR #: [id number] : 1940 Age/Sex: 77/M Req #: [id number] Adm Physician: CARROLL LIMA MD Ordered by: DENIS GRANADOS MD Report #: [id number] Location: MED/SURG2 Room/Bed: [facility] Procedure: [id number] DX/CHEST SINGLE (PORTABLE) Exam Date: 07/12/17 Exam [...] TO: DENIS GRANADOS MD CHEST SINGLE (PORTABLE) [place] [address] Patient Name: TONEY NAVA MR #: [id number] : 1940 Age/Sex: 77/M Req #: [id number] Adm Physician: CARROLL LIMA MD Ordered by: CARROLL LIMA MD Report #: [id number] Location: MED/SURG2 Room/Bed: [facility] Procedure: [id number] D X/CHEST SINGLE (PORTABLE) Exam Date: 07/11/17 [...] TO: CARROLL LIMA MD CHEST SINGLE (PORTABLE) [place] [address] Patient Name: TONEY NAVA MR #: [id number] : 1940 Age/Sex: 77/M Req #: [id number] Adm Physician: CARROLL LIMA MD Ordered by: FADI CANALES MD, MD Report #: [id number] Location: [facility] Room/Bed: [facility]-7 Procedure: 24 DX/CHEST SINGLE (PORTABLE) Exam Date: 07/10/17 [...] TO: FADI CANALES VENOUS DUPLEX LWR B/L [place] [address] Patient Name : TONEY NAVA MR #: [id number] : 1940 Age/Sex: 77/M Adm Physician : CARROLL LIMA MD Admit Date : 07/10/17 Location : MED/SURG2 Room/Bed : 208 REPORT: Cardiology Repo rt DATE OF STUDY: [...] identified bilaterally. 3. Subopti mal study. Job#: [id number] EV cc: FADI CANALES MD Signature Date Dicta ryne By: OSBIA MORRELL MD Transcribed By: EDS on 07/11/17 <Electronically signed by SOBIA MORRELL MD><<Signature on File>>07/12/17 0943 COPY TO:
--- NOTE | 2019-12-26 14:06 | Emergency Department Note ---
History of Present Illnes History of Present Illness Chief Complaint: Respiratory History of Present Illness This is a 79 year old male with progressive sob and LE edema x 3-4 weeks. pt on oxygen 4 lpm. hx of CHF, tachypneic, bilateral lower extremity +4 pitting edema. aaox4. pt exacerbated walking from outside er door to window. pt given w/c and seen in triage by md. o2 turned up to 5 lpm and sats came up to 98%. No cough, F/C Historian: Patient, Family Member Arrival Mode: Car Sustainability Purchasing Agent Required: No Onset (how long ago): week(s) (3-4 weeks) Radiation: Reports non-radiation Severity: moderate Onset quality: gradual Timing of current episode: constant Progression: worsening Chronicity: recurrent Context: Denies recent illness Relieving factors: none Exacerbating factors: movement Associated symptoms: Reports shortness of breath, Reports weakness; Denies chest pain, Denies cough Past Medical/Family History Physician Review I have reviewed the patient's past medical and family history. Any updates have been documented here. Past Medical History Recent Fever: No Clinical Suspicion of Infectio: No New/Unexplained Change in Ment: No Past Medical History: Hypertension, Diabetes, COPD, CHF, A-Fib, CAD, Hyperlipedemia, Chronic Kidney Disease Other Medical History: neuropathy morbid obesity 02 dependant Past Surgical History: Cholecysctectomy, CABG, T&A, Hernia Repair Other Surgery: bypass x 4 vessels Social History Smoking Cessation: Never Smoker Counseling Performed: No Alcohol Use: None Any Illegal Drug Use: No TB Exposure/Symptoms: No Physically hurt or threatened: No Other Last Tetanus: UTD Any Pre-Existing Lines (PICC,: No Review of Systems Review of Systems Constitutional: Reports no symptoms EENTM: Reports no symptoms Cardiovascular: Reports as per HPI, Reports edema Respiratory: Reports as per HPI, Reports dyspnea, Reports dyspnea on exertion Gastrointestinal: Reports no symptoms Genitourinary: Reports no symptoms Musculoskeletal: Reports no symptoms Integumentary: Reports no symptoms Neurological: Reports no symptoms Psychological: Reports no symptoms Endocrine: Reports no symptoms Hematological/Lymphatic: Reports no symptoms Physical Exam Related Data Allergies: Coded Allergies: quinapril (Verified Allergy, Severe, ANGIOEDEMA, 02/28/19) exenatide (Verified Allergy, Intermediate, HIVES, 02/28/19) sitagliptin (Verified Allergy, Intermediate, HIVES, 02/28/19) vancomycin (Verified Allergy, Intermediate, 02/28/19) RESP DISTRESS Triage Vital Signs Vital Signs Date Time Temp Pulse Resp B/P (MAP) Pulse Ox O2 Delivery O2 Flow Rate FiO2 12/26/19 11:00 98.9 98 28 191/102 93 Nasal Cannula 4.0 Vital signs reviewed: Yes Physical Exam CONSTITUTIONAL Constitutional: Present well-developed, Present morbidly obese HENT HENT: Present normocephalic, Present atraumatic, Present oropharynx clear/moist, Present nose normal HENT L/R: Present left ext ear normal, Present right ext ear normal EYES Eyes: Reports PERRL, Reports conjunctivae normal NECK Neck: Present ROM normal PULMONARY Pulmonary: Present rales (bilateral, decreased BS's left base) CARDIOVASCULAR Cardiovascular: Present irregular rhythm, Present murmur (2+/6 high-pitched sys murmur), Present LLE edema, Present RLE edema GASTROINTESTINAL Abdominal: Present soft, Present nontender, Present bowel sounds normal GENITOURINARY Genitourinary: Present exam deferred SKIN Skin: Present warm, Present dry MUSCULOSKELETAL Musculoskeletal: Present edema (bilateral 4+ LE edema) NEUROLOGICAL Neurological: Present alert, Present oriented x 3, Present no gross motor or sensory deficits PSYCHOLOGICAL Psychological: Present mood/affect normal, Present judgement normal Results Laboratory Result Diagram: 12/26/19 1237 12/26/19 1237 Laboratory Laboratory Tests Test 12/26/19 13:00 12/26/19 12:37 12/26/19 12:25 12/26/19 11:30 White Blood Count 8.52 x10e3/uL (4.8-10.8) Red Blood Count 4.07 x10e6/uL (4.3-5.7) Hemoglobin 10.9 g/dL (14.0-18.0) Hematocrit 35.1 % (38.2-49.6) Mean Corpuscular Volume 86.2 fL (81-99) Mean Corpuscular Hemoglobin 26.8 pg (28-32) Mean Corpuscular Hemoglobin Concent 31.1 g/dL (31-35) Red Cell Distribution Width 14.8 % (11.7-14.4) Platelet Count 106 x10e3/uL (140-360) Neutrophils (%) (Auto) 74.5 % (38.7-80.0) Lymphocytes (%) (Auto) 12.4 % (18.0-39.1) Monocytes (%) (Auto) 8.6 % (4.4-11.3) Eosinophils (%) (Auto) 3.5 % (0.0-6.0) Basophils (%) (Auto) 0.4 % (0.0-1.0) Neutrophils # (Auto) 6.4 (2.1-6.9) Lymphocytes # (Auto) 1.1 (1.0-3.2) Monocytes # (Auto) 0.7 (0.2-0.8) Eosinophils # (Auto) 0.3 (0.0-0.4) Basophils # (Auto) 0.0 (0.0-0.1) Absolute Immature Granulocyte (auto 0.05 x10e3/uL (0-0.1) Prothrombin Time 19.9 seconds (11.9-14.5) Prothromb Time International Ratio 1.59 Activated Partial Thromboplast Time 46.1 seconds (23.8-35.5) Sodium Level 136 mmol/L (136-145) Potassium Level 4.3 mmol/L (3.5-5.1) Chloride Level 96 mmol/L (98-107) Carbon Dioxide Level 27 mmol/L (22-29) Anion Gap 17.3 mmol/L (8-16) Blood Urea Nitrogen 30 mg/dL (7-26) Creatinine 1.74 mg/dL (0.72-1.25) Estimat Glomerular Filtration Rate 38 ML/MIN (60-) BUN/Creatinine Ratio 17 (6-25) Glucose Level 356 mg/dL (74-118) Calcium Level 8.0 mg/dL (8.4-10.2) Magnesium Level 1.8 MG/DL (1.3-2.1) Total Bilirubin 0.6 mg/dL (0.2-1.2) Aspartate Amino Transf (AST/SGOT) 21 IU/L (5-34) Alanine Aminotransferase (ALT/SGPT) 19 IU/L (0-55) Alkaline Phosphatase 83 IU/L (40-150) Creatine Kinase 406 IU/L (30-200) Creatine Kinase MB 9.00 ng/mL (0-5.0) Troponin I 0.057 ng/mL (0-0.300) B-Type Natriuretic Peptide 95.4 pg/mL (0-100) Total Protein 7.0 g/dL (6.5-8.1) Albumin 3.9 g/dL (3.5-5.0) Globulin 3.1 g/dL (2.3-3.5) Albumin/Globulin Ratio 1.3 (0.8-2.0) Urine Color Yellow (YELLOW) Urine Clarity Clear (CLEAR) Urine pH 7.5 (5 - 7) Urine Specific Shubert 1.020 (1.010-1.025) Urine Protein >=300 (NEGATIVE) Urine Glucose (UA) 2+ (NEGATIVE) Urine Ketones Negative (NEGATIVE) Urine Blood Moderate (NEGATIVE) Urine Nitrite Negative (NEGATIVE) Urine Bilirubin Negative (NEGATIVE) Urine Urobilinogen 0.2 mg/dL (0.2 - 1) Urine Leukocyte Esterase Negative (NEGATIVE) Urine RBC 6-10 /HPF (0-5) Urine WBC 0-5 /HPF (0-5) Urine Epithelial Cells None /LPF (NONE) Urine Bacteria None /HPF (NONE) Urine Mucus Few (RARE) Arterial Blood pH 7.40 (7.35-7.45) Arterial Blood Partial Pressure CO2 53 mmHg (35-45) Arterial Blood Partial Pressure O2 92 mmHg (80-105) Arterial Blood HCO3 33 mmol/L (22-26) Arterial Blood Total CO2 34 Arterial Blood Oxygen Saturation 97.0 % (95-98) Arterial Blood Base Excess 8.0 mmol/L (-2 - 3) FiO2 36 % Lab results reviewed: Yes Imaging Imaging results reviewed: Yes Impressions TECHNIQUE: Frontal view of the chest. INDICATION: ^SOB, CHF? ^[id number] ^1130 COMPARISON: 02/04/2019 DISCUSSION: Limited evaluation due to portable technique. Lines and hardware: Midline sternotomy changes are stable. Linear calcification projecting over the left infrahilar region is stable. Heart and mediastinum: Stable. Lungs and pleura: Similar appearance of left basilar opacification with blunting of the left costophrenic angle. Right lung is clear. Negative for pneumothorax. Soft tissues and bones: No acute abnormality. IMPRESSION: Similar x-ray dated 02/04/2019 there is a left basilar opacification which could represent any combination of consolidation, effusion and atelectasis. Signed by: Robles Almaraz MD on 12/26/2019 11:51 AM Procedures 12 Lead ECG Interpretation ECG Interpretation : ECG: ECG 1 Sustainability Purchasing Agent: Interpreted by ED physician Date: Dec 26, 2019 Time: 11:09 Rhythm: sinus rhythm Rate: normal (79) QRS axis: right Conduction: right bundle branch block ST segments normal: Yes T wave inversion: III, V1 Clinical Impression: abnormal ECG ABG Interpretation ABG Results: ABG 1 Interpretation: respiratory acidosis Additional comments appears to be chronic compensated resp acidosis with metabolic alkalosis Critical Care Time Total Critical Care Time (min): 30 Critical care time exclusive o: separately billable procedures Critcal care necessary due to: cardiac failure Critcal care time spent by me: discussion w consultants, discussion w primary provider, evaluation patient response to tx, order/perform tx or interventions, order/review laboratory studies, order/review radiographic studies, pulse oximetry, review of old charts Assessment & Plan Medical Decision Making MDM cbc, chem, ecg, cardiacs, bnp, cxr, abg, ua, echo, covid, blood cx's - eval for chf, resp failure, stemi/nstemi, pneumonia, covid Reassessment Reassessment admit dr olson, also spoke with dr cuenca Assessment & Plan Final Impression: (1) CHF (congestive heart failure) (2) Pneumonia (3) Renal insufficiency (4) Dyspnea (5) Atrial fibrillation (6) COPD (chronic obstructive pulmonary disease) Depart Disposition: ADMITTED Last Vital Signs Date Time Temp Pulse Resp B/P (MAP) Pulse Ox O2 Delivery O2 Flow Rate FiO2 12/26/19 13:30 65 18 163/65 99 Nasal Cannula 4.0 12/26/19 12:15 98.5 Home Meds Reported Medications Aspirin (ASPIR 81) 81 Mg Tablet., 81 MG PO DAILY 02/04/19 Atorvastatin Calcium (ATORVASTATIN CALCIUM) 20 Mg Tablet, 80 MG PO 2100, TAB 02/04/19 Furosemide (FUROSEMIDE) 40 Mg Tablet, 40 MG PO Daily, #30 TAB 02/04/19 Insulin Aspart (NOVOLOG) 100 Unit/1 Ml Cartridge 02/04/19 Metolazone (METOLAZONE) 5 Mg Tablet, 5 MG PO DAILY, #30 TAB TWICE PER WEEK only 02/04/19 Ketoconazole (KETOCONAZOLE) 120 Ml Shampoo, 1 UDPKT TOP DAILY 02/04/19 Metoprolol Tartrate (METOPROLOL TARTRATE) 25 Mg Tablet, 25 MG PO BID, TAB 02/04/19 Terazosin Hcl (TERAZOSIN HCL) 5 Mg Capsule, 10 MG PO HS, #30 CAP 02/04/19 Gabapentin (GABAPENTIN) 300 Mg Capsule, 1200 MG PO BID, #60 CAP 02/04/19 Insulin Detemir (LEVEMIR) 100 Unit/1 Ml Vial 02/04/19 Warfarin Sodium (WARFARIN SODIUM) 2.5 Mg Tablet, 5 MG PO .SA ROSEN TU TH, #30 TAB 02/04/19 Warfarin Sodium (WARFARIN SODIUM) 2.5 Mg Tablet, 7.5 MG PO .MO WE FR, #30 TAB 02/04/19 Lactobacillus Acidophilus (ACIDOPHILUS) 1 Each Tab.chew, PO BID for 10 Days, #20 02/04/19 Insulin Detemir (LEVEMIR) 100 Unit/1 Ml Vial, 67 SQ Q12H 02/04/19 Clindamycin Hcl (CLINDAMYCIN HCL) 150 Mg Capsule, 300 MG PO TID 02/04/19 Medications in the ED Ceftriaxone Sodium 50 ml @ 100 mls/hr Q12H IV ; Start 12/26/19 at 13:30; Stop 01/02/20 at 13:29 Azithromycin 250 ml @ 200 mls/hr Q24H IV ; Start 12/26/19 at 13:30; Stop 01/02/20 at 13:29 Furosemide 40 mg ONCE ONCE IV ; Start 12/26/19 at 13:30; Stop 12/26/19 at 13:40; Status DC Furosemide 40 mg BID IV ; Start 12/26/19 at 17:00; Stop 01/25/20 at 16:59; Status UNV Albuterol/ Ipratropium 3 ml RQ4H PRN NEB SHORTNESS OF BREATH; Start 12/26/19 at 13:30; Stop 01/25/20 at 13:29; Status UNV BENITO SUAREZ MD Dec 26, 2019 14:06
--- NOTE | 2019-12-26 14:07 | NUR ---
picc line team called out; unknown eta
[2019-12-26] MEDS ORDERED: LEVEMIR FL100 UNIT/1 SC (14:18)
[2019-12-26] MEDS ORDERED: GABAPENTIN300 MG PO (14:18)
[2019-12-26] MEDS ORDERED: NOVOLOG100 UNITS1 SQ (14:20)
[2019-12-26] MEDS: INSULIN LISPRO 100 UNIT/1 ML 3ML VIAL SQ SCH ×3 (14:41→21:33)
--- NOTE | 2019-12-26 15:00 | NUR ---
picc nurse in room
--- NOTE | 2019-12-26 15:46 | Diagnostic Imaging Report ---
TECHNIQUE: Frontal view of the chest. INDICATION: ^Y ^line placement ^[id number] ^1525 COMPARISON: Same day DISCUSSION: Limited evaluation due to portable technique. Lines and hardware: Interval placement of left PICC with tip projecting at the mid SVC. Stable midline sternotomy changes and metallic fragment imaging over the left chest. Heart and mediastinum: Stable. Lungs and pleura: Stable left basilar opacification with blunting of the left costophrenic angle. Prominent interstitial markings are now noted. Negative for large pneumothorax. Soft tissues and bones: No acute abnormality. IMPRESSION: 1. Stable left basilar consolidation/effusion. 2. Interstitial markings are more prominent concerning for a component of fluid overload. 3. Interval placement of left PICC with tip projecting at the mid SVC. Signed by: Robles Almaraz MD on 12/26/2019 3:43 PM
[2019-12-26] MEDS: AZITHROMYCIN 500MG/NS 250 ML 250 ML IV SCH (16:23)
[2019-12-26] MEDS: CEFTRIAXONE SOD 1 GM/NS 50 ML 50 ML IV SCH (16:23)
[2019-12-26] MEDS ORDERED: WARFARIN SOD 2.5 MG TAB PO SCH (16:30)
[2019-12-26] MEDS ORDERED: METHYLPREDNISOLONE SOD SUCC 125 MG/2ML VIAL IV ONE (17:00)
[2019-12-26] MEDS ORDERED: FUROSEMIDE INJ 10 MG/ML 4 ML VIAL IV SCH (17:00)
[2019-12-26] MEDS: GABAPENTIN 300 MG CAP PO SCH (17:11)
[2019-12-26] MEDS: METOPROLOL TARTRATE 25 MG TAB PO SCH (17:12)
[2019-12-26] MEDS ORDERED: WARFARIN SOD 5 MG TAB PO SCH (18:00)
[2019-12-26] MEDS ORDERED: MORPHINE SULFATE 2 MG/ML SYR 1ML IV PRN (19:00)
[2019-12-26 19:30] VITALS: BP 165/67
--- NOTE | 2019-12-26 19:53 | NUR ---
CALLED MD FUNG REGARDING LOVENOX ORDER. AWAITING CALL BACK.
[2019-12-26 20:00] VITALS: BP 165/67
--- NOTE | 2019-12-26 20:24 | NUR ---
CALLED MD FUNG REGARDING LOVENOX ORDER. AWAITING CALL BACK.
--- NOTE | 2019-12-26 20:33 | NUR ---
SPOKE TO MD FUNG. MD ORNELAS TO GIVE LOVENOX AND WARFARIN.
--- NOTE | 2019-12-26 20:54 | Consultation ---
DATE OF CONSULTATION: 12/26/2019 Cardiology Consultation CONSULTING PHYSICIAN: Seth Garcia MD, Interventional Cardiology. REASON FOR CONSULTATION: Edema, history of heart disease. HISTORY OF PRESENT ILLNESS: 79-year-old man with morbid obesity, lymphedema, CAD status post aortocoronary bypass and remote PCI, history of diaphragmatic paralysis, paroxysmal atrial fibrillation, diabetes, hypertension, and dyslipidemia, presents with over 20 pounds weight gain and increasing dependent edema lower extremities, associated with worsening dyspnea on exertion and fatigue. He also reports a prior history of chronic kidney disease. REVIEW OF SYSTEMS: A 12-System review is negative except for as noted above. ALLERGIES: PER EMR. SITAGLIPTIN, EXENATIDE, VANCOMYCIN AND QUINAPRIL. SOCIAL HISTORY: Negative for smoking, alcohol, or drugs. FAMILY HISTORY: Remarkable for cardiovascular disease in several family members. PHYSICAL EXAMINATION: VITAL SIGNS: Afebrile, heart rate 85, O2 saturation 97%, respiratory rate 20, blood pressure in the 140s over 80s. BMI 37.8. GENERAL: In no acute distress, alert. NECK: With jugular venous distention. CARDIOVASCULAR: Irregularly irregular rate and rhythm. Normal S1 and S2. Systolic ejection murmur 2/6. No S3 or S4. ABDOMEN: Soft. Bowel sounds positive. EXTREMITIES: 3+ edema and thickened skin to lower extremity, edematous toes. CARDIOVASCULAR MEDICATIONS: Reviewed. Furosemide 40 mg b.i.d., IV; atorvastatin 80 mg at bedtime; warfarin 5 mg Wednesday, , Wednesday, and 7.5 mg Wednesday, Wednesday, Wednesday; aspirin 81 mg daily; metoprolol tartrate 25 mg b.i.d.; started on azithromycin and ceftriaxone. STUDIES: Reviewed. Sodium 136, potassium 4.3, chloride 96, bicarbonate 27, BUN 30, creatinine 1.7, and glucose 356. White blood cells 8.5, hemoglobin 10.9, and platelets a 106. PT 19.9 and PTT 46. INR 1.59. AST 21, ALT 19, alkaline phosphatase 83, and total bilirubin 0.6. ASSESSMENT AND PLAN: An 79-year-old man presents with 1. Acute diastolic heart failure. 2. Lymphedema. 3. Coronary artery disease with history of bypass and remote stent. 4. Anemia. 5. Chronic kidney disease with possible component of acute kidney injury. 6. Morbid obesity. 7. Diabetes/dyslipidemia. 8. Paroxysmal atrial fibrillation. 9. Systolic heart murmur on exam. RECOMMEND: 1. Uptitrate Lasix to 60 mg IV b.i.d. and restrict sodium intake. 2. Monitor H and H. 3. Subtherapeutic INR add Lovenox 100 mg subcu daily and continue warfarin and adjust as needed. 4. Echocardiogram reviewed, has preserved left ventricular systolic function. Severely poor acoustic windows limiting visualization of valves. As outpatient can consider an elective alternative imaging modality such as cardiac MRI at a later date once optimized. 5. Continue rest of cardiovascular medications. Thank you for the opportunity to participate in the care of this gentleman. Please call with any questions, #[phone]. MD CarreraV/MODL /[id number]
[2019-12-26] MEDS ORDERED: ATORVASTATIN 20 MG TAB PO SCH (21:00)
[2019-12-26] MEDS: TERAZOSIN HCL 5 MG CAP PO SCH (21:32)
[2019-12-26] MEDS: ATORVASTATIN 40 MG TAB PO SCH (21:32)
[2019-12-26] MEDS: ENOXAPARIN SODIUM INJ 100 MG/ML SYR SC SCH (21:32)
[2019-12-27] VITALS (7 sets, daily range): BP systolic 105–155; BP diastolic 43–62
[2019-12-27] MEDS: CEFTRIAXONE SOD 1 GM/NS 50 ML 50 ML IV SCH ×2 (01:27→15:54)
[2019-12-27] MEDS ORDERED: SODIUM CHLORIDE 0.9% 250ML 250 ML ONE (01:31)
[2019-12-27 03:05] LABS: CREATINE KINASE MB 10.3 ng/mL (0-5.0)
--- NOTE | 2019-12-27 04:55 | NUR ---
CENTRAL LINE CARE PROVIDED. DAILY CHG BATH. NEW PORTS. SALINE FLUSHES.
[2019-12-27 05:09] LABS: BASOPHILS % 0.2 % (0.0-1.0); HEMATOCRIT 35.6 % (38.2-49.6); HEMOGLOBIN 11.3 g/dL (14.0-18.0); LYMPHOCYTES # (AUTO) 0.5 (1.0-3.2); MEAN CORPUSCULAR HEMOGLOBIN 27.6 pg (28-32); MEAN CORPUSCULAR HGB CONC 31.7 g/dL (31-35); MEAN CORPUSCULAR VOLUME 86.8 fL (81-99); MONOCYTES # (AUTO) 0.1 (0.2-0.8); MONOCYTES % 1.5 % (4.4-11.3); NEUTROPHILS # (AUTO) 8.1 (2.1-6.9); NEUTROPHILS % 91.7 % (38.7-80.0); PLATELET COUNT 89 x10e3/uL (140-360); RED CELL DISTRIBUTION WIDTH 14.8 % (11.7-14.4)
[2019-12-27 05:29] LABS: ANION GAP 16.7 mmol/L (8-16); CREATININE, SERUM 1.99 mg/dL (0.72-1.25); POTASSIUM 4.7 mmol/L (3.5-5.1)
[2019-12-27 05:35] LABS: CHOL/HDL RATIO 4.2 (3.9-4.7)
[2019-12-27 05:49] LABS: THYROID STIMULATING HORMONE 1.687 uIU/mL (0.350-4.940)
[2019-12-27 05:58] LABS: ALBUMIN 3.8 g/dL (3.5-5.0); ALBUMIN/GLOBULIN RATIO 1.2 (0.8-2.0)
--- NOTE | 2019-12-27 06:50 | NUR ---
REPORT GIVEN TO DAYSHIFT NURSE. ALERT AND RESTING IN BED. NO SIGNS IV INFILTRATION. BED LOCKED AND IN LOW POSITION. CALL LIGHT WITHIN REACH.
--- NOTE | 2019-12-27 07:05 | NUR ---
DAILY WEIGHT 301.5. BUILT-IN BED SCALE.
[2019-12-27] MEDS: INSULIN LISPRO 100 UNIT/1 ML 3ML VIAL SQ SCH ×6 (07:30→20:36)
--- NOTE | 2019-12-27 08:35 | Diagnostic Imaging Report ---
TECHNIQUE: Frontal view of the chest. INDICATION: ^SOB ^[id number] ^0530 COMPARISON: Prior day. DISCUSSION: Limited evaluation due to portable technique. Lines and hardware: Stable left PICC. Stable midline sternotomy changes. Stable metallic fragment projecting over the left lower hemithorax. Heart and mediastinum: Stable. Lungs and pleura: Stable left basilar opacification with blunting of the left costophrenic angle. Stable prominent interstitial markings. Right lung is clear. Negative for large pneumothorax. Soft tissues and bones: No acute abnormality. IMPRESSION: Stable exam. Signed by: Robles Almaraz MD on 12/27/2019 8:31 AM
[2019-12-27] MEDS: FUROSEMIDE INJ 10 MG/ML 4 ML VIAL IV SCH ×2 (08:53→17:14)
[2019-12-27] MEDS: METOPROLOL TARTRATE 25 MG TAB PO SCH ×2 (08:54→17:14)
[2019-12-27] MEDS: ASPIRIN 81 MG CHEW TAB PO SCH (08:54)
[2019-12-27] MEDS: GABAPENTIN 300 MG CAP PO SCH ×3 (08:54→17:34)
[2019-12-27] MEDS: ENOXAPARIN SODIUM INJ 100 MG/ML SYR SC SCH ×2 (09:00→20:35)
--- NOTE | 2019-12-27 15:13 | History and Physical ---
PCP: Dr. Brenda Jacobson at [facility] in [place]. CHIEF COMPLAINT: Shortness of breath and bilateral lower extremity edema. HISTORY OF PRESENT ILLNESS: This is an 79-year-old male with past medical history of hypertension, high cholesterol, congestive heart failure, diabetes, COPD, AFib, and CKD stage 3, presents to the ER with complaints of shortness of breath and bilateral lower extremity edema, that has been going on for 3 weeks. He reports he has been taking his medications as prescribed, but has noticed he is more short of breath and requiring more oxygen, although at home he is on 4 L of oxygen. He reports fatigue with exertion, and sharp chest pain a few days ago. He denies any nausea, vomiting, fever, chills, cough, or ill contacts. PAST MEDICAL HISTORY: 1. Hypertension. 2. High cholesterol. 3. CHF. 4. Atrial fibrillation. 5. COPD. 6. Diabetes. 7. CKD stage3. PAST SURGICAL HISTORY: 1. Cholecystectomy. 2. Quadruple bypass. 3. T and A. 4. Hernia repairs. FAMILY MEDICAL HISTORY: Reports both mother and father had diabetes, hypertension, and congestive heart failure. SOCIAL HISTORY: He denies any tobacco, alcohol, or illicit drugs. He is and he lives with his . ALLERGIES: HE IS ALLERGIC TO EXENATIDE, QUINAPRIL, SITAGLIPTIN, AND VANCOMYCIN. REVIEW OF SYSTEMS: Ten systems reviewed and negative except as reported above. PHYSICAL EXAMINATION: VITAL SIGNS: Temperature 98.5, pulse is 84, respirations 17, blood pressure 127/108, pulse ox is 98% on 4 L of nasal cannula. GENERAL: Shortness of breath, otherwise fatigue. HEENT: Normocephalic and atraumatic. NECK: Supple. LUNGS: With decreased breath sounds. CARDIOVASCULAR: Regular rate and rhythm. GI: Soft and nontender. Obese. NEUROLOGIC: Alert and oriented x3. MUSCULOSKELETAL: Moves all extremities, +3 edema in the lower extremities. SKIN: Dry. PSYCH: He is calm. LABORATORY DATA: WBC 8.52, hemoglobin 10.9, hematocrit 35.1, and platelets 106. Sodium 136, potassium 4.3, BUN is 30, creatinine 1.74, glucose 356, magnesium 1.8, AST 21, ALT 19. CK 406, CK-MB 9, troponin 0.057. BNP is 85.4. ABGs; pH 7.40, pCO2 of 53, PO2 of 92, bicarb 33. PT 19.9, INR 1.59, APTT 46.1. UA; color yellow, clear, negative for leukocyte esterase, rbc 6-10, bacteria none. Coronavirus PCR is not detected. Blood and urine cultures are pending. Chest x-ray, similar x-ray dated 02/04/2019, left basal opacification, which could represent any combination of consolidation, effusion, and atelectasis. Chest x-ray for line placement shows interstitial markings are more prominent, concerning for a component of fluid overload. IMPRESSION: 1. Dyspnea due to likely fluid overload. He is started on Lasix IV b.i.d., chest x-ray noted. He is started on empiric Rocephin and azithromycin. Afebrile. 2. Acute kidney injury on chronic kidney disease. Creatinine 1.74. We will continue with diuresis. 3. Hypertension. We will resume home metoprolol and terazosin. 4. Congestive heart failure, unspecified type. Echo has been ordered. Cardiology is following. 5. History of atrial fibrillation. Rate is controlled with metoprolol. We will resume Coumadin for cerebrovascular accident prophylaxis. 6. Diabetes. We will check hemoglobin A1c. We will continue with sliding scale before meals and at bedtime and lispro 20 units b.i.d. 7. Chronic obstructive pulmonary disease. We will give Solu-Medrol x1 and monitor progress. 8. High cholesterol. Continue statin. 9. Obesity. BMI of 37.8. 10. Deep vein thrombosis prophylaxis, on Coumadin. 11. Bilateral lower extremity edema and redness. We will check venous Doppler to rule out deep venous thrombosis. PLAN: To continue current treatment, aggressive diuresis, we will consult Physical Therapy, and further recommendations per Cardiology. Dictated by EVELYNE Boone Gretchen Loco MD MY/MODL /[id number]
--- NOTE | 2019-12-27 16:35 | NUR ---
Paged Dr. Malcolm to clarify about Lovenox along with coumadin. Awaiting for call back.
[2019-12-27] MEDS ORDERED: WARFARIN SOD 2.5 MG TAB PO SCH (17:00)
[2019-12-27] MEDS: AZITHROMYCIN 500MG/NS 250 ML 250 ML IV SCH (17:11)
--- NOTE | 2019-12-27 17:50 | NUR ---
Paged Dr. Malcolm for the second time for order clarification. Awaiting for call back.
[2019-12-27 19:00] LABS: INR 1.43; PROTHROMBIN TIME 18.3 seconds (11.9-14.5)
--- NOTE | 2019-12-27 20:00 | NUR ---
SPOKE TO MD YANCEY. NEW ORDERS RECEIVED.
[2019-12-27] MEDS ORDERED: SODIUM CHLORIDE 0.9% 250ML 250 ML IV ONE (20:15)
[2019-12-27] MEDS: ATORVASTATIN 40 MG TAB PO SCH (20:35)
[2019-12-27] MEDS: INSULIN GLARGINE 100 UNITS/ML VIAL SQ SCH (20:36)
[2019-12-27] MEDS: TERAZOSIN HCL 5 MG CAP PO SCH (21:00)
--- NOTE | 2019-12-27 21:09 | Progress Note ---
DATE: 12/27/2019 SUBJECTIVE: The patient is seen sitting resting in a recliner, reports edema in the lower extremities is improving some, shortness of breath also improved some. Denies any chest pain, fever, chills, nausea, or vomiting. PHYSICAL EXAMINATION: VITAL SIGNS: Temperature 98.8, pulse is 60, respirations 20, blood pressure 155/60, pulse ox 100% on 3 L on nasal cannula. GENERAL: No acute distress. HEENT: Normocephalic, atraumatic. NECK: Supple. LUNGS: With decreased breath sounds. CARDIOVASCULAR: Regular rate and rhythm. GI: Soft and nontender, obese. NEUROLOGIC: Alert, awake, and oriented x3. MUSCULOSKELETAL: Moves all extremities. +3 edema in the lower extremities. SKIN: Dry. PSYCH: Calm. LABORATORY DATA: WBC 8.20, hemoglobin 11.3, hematocrit 35.6, platelet 89. Sodium 138, potassium 4.7, CO2 30, anion gap 16.7. BUN 34, creatinine 1.99. Blood glucose 360. Hemoglobin A1c 10, AST 27, ALT 19. CK is 690. BNP is 160. Troponin 0.066 and then 0.035. Triglycerides 152, LDL 57, HDL 30, TSH 1.68. INR 1.4. COVID-19 negative. Urine and blood cultures negative. Chest x-ray, stable exam. IMPRESSION: 1. Dyspnea due to pulmonary edema. We will continue with aggressive Lasix IV. Chest x-ray stable. Remains afebrile. 2. Acute kidney injury on chronic kidney disease. Creatinine is 1.99. We will continue with diuresis. 3. Hypertension. Continue metoprolol and terazosin. 4. Diastolic congestive diet. Echo has been done pending results. Cardiology on the case. We will continue diuresis. 5. Atrial fibrillation. Rate is controlled with metoprolol. Continue Coumadin for cerebrovascular accident prophylaxis. 6. Diabetes type 2. Hemoglobin A1c is 10. We will with sliding scale and lispro 20 units b.i.d. We will add Levemir 30 units at bedtime. 7. History of chronic obstructive pulmonary disease. We will continue him to monitor, nebs p.r.n. 8. High cholesterol. Continue statin. 9. An elevated creatine kinase 690. We will monitor for now given his congestive heart failure. 10. Obesity, with BMI of 37.8. 11. Bilateral lower extremity edema and redness. Pending venous Doppler to rule out deep venous thrombosis. 12. Deep vein thrombosis prophylaxis. On Coumadin. PLAN: To continue aggressive diuresis, probably monitor, physical therapy as tolerated. Further recommendations per Cardiology. Dictated by EVELYNE Boone Sabaching Mauri Loco MD MY/MODL /[id number]
[2019-12-28] VITALS (9 sets, daily range): BP systolic 125–168; BP diastolic 41–96
--- NOTE | 2019-12-28 00:41 | NUR ---
RECEIVE CALL BY TELE HR 48. PATIENT ALERT AND RESTING IN BED. NO COMPLAINTS AT THIS TIME. NO ADVERSE SIGNS OR SYMPTOMS. TELE BOX READ HR 57-62.
[2019-12-28] MEDS: CEFTRIAXONE SOD 1 GM/NS 50 ML 50 ML IV SCH ×2 (01:14→13:51)
--- NOTE | 2019-12-28 02:15 | Progress Note ---
DATE: 12/27/2019 Cardiology Progress Note SUBJECTIVE: The patient feels somewhat less short of breath. He also thinks his leg swelling has decreased slightly. He has no complaints. He denies any chest discomfort, chest pain, palpitations, dizziness, nausea, vomiting, fever, or chills. PHYSICAL EXAMINATION: VITAL SIGNS: Blood pressure is 155/60 mmHg with a heart rate of 60 and regular, oxygen saturation is 100% on nasal cannula at 4 L/minute, and he is afebrile. GENERAL: He is in no acute distress, lying comfortably in bed. Head of bed is elevated at about 30 degrees. HEAD AND NECK: Normocephalic, atraumatic. Anicteric conjunctiva. Neck is supple. LUNGS: Decreased breath sounds in both lung hamilton. CARDIOVASCULAR: Regular rate and rhythm. Distant S1 and S2. ABDOMEN: Obese, soft, nontender. EXTREMITIES: Marked leg edema in both lower extremities, also lymphedema in both lower extremities. IMAGING STUDIES: Telemetry shows sinus and sinus gonzalez and no episodes of atrial fibrillation. His electrocardiogram shows sinus rhythm at a rate of 79 beats per minute and a right bundle-branch block, no acute ST abnormalities. LABORATORY DATA: Shows a white blood cell count of 8.8, hemoglobin of 11, hematocrit 35.6, and platelet of 89,000, decreased from 106,000 the day before. His sodium is 138, potassium is 4.7, chloride is 96, bicarb is 30, BUN is 32, and creatinine is 1.99, increased from 1.7. His BNP is 160. His hemoglobin A1c is 10%. His CK is 690. His INR is subtherapeutic at 1.59. The patient is COVID-19 negative. ASSESSMENT AND PLAN: 1. Diastolic heart failure, receiving diuretics with increasing creatinine. The patient's fluid balance shows a negative 2.3 L in the last 36 hours. The patient claims that his symptoms have improved somewhat. Recommend monitoring closely. 2. Paroxysmal atrial fibrillation, currently in sinus rhythm. No runs of atrial fibrillation by telemetry. The patient's INR is subtherapeutic, but he is also receiving Lovenox 100 mg daily. He is on Coumadin. We will follow the INR. 3. Leg edema and lymphedema. I am not sure how much improvement there will be with diuresis given the fact that he has a significant lymphedema in both the lower extremities. 4. Coronary artery disease, status post coronary artery bypass, asymptomatic and stable. 5. Diabetes type 2, very poorly controlled. Hemoglobin A1c is 10%. Going back to the labs in 2015, patient's hemoglobin A1c was 9%. 6. Thrombocytopenia, worsening. There is no reported bleeding. We will monitor closely. MD GURDEEP Pascual/MODJorge /[id number]
[2019-12-28 05:07] LABS: INR 1.57; PROTHROMBIN TIME 19.7 seconds (11.9-14.5)
[2019-12-28 05:15] LABS: ANION GAP 13.9 mmol/L (8-16); CALCIUM 7.8 mg/dL (8.4-10.2); CREATININE, SERUM 1.93 mg/dL (0.72-1.25); POTASSIUM 3.9 mmol/L (3.5-5.1)
--- NOTE | 2019-12-28 07:05 | NUR ---
REPORT GIVEN TO DAYSHIFT NURSE. ALERT AND RESTING AT BEDSIDE. NO SIGNS IV INFILTRATION. BED LOCKED AND IN LOW POSITION. CALL LIGHT WITHIN REACH.
[2019-12-28] MEDS: INSULIN LISPRO 100 UNIT/1 ML 3ML VIAL SQ SCH ×6 (07:36→21:55)
[2019-12-28] MEDS: METOPROLOL TARTRATE 25 MG TAB PO SCH ×2 (08:37→17:22)
[2019-12-28] MEDS: GABAPENTIN 300 MG CAP PO SCH ×2 (08:37→17:22)
[2019-12-28] MEDS: FUROSEMIDE INJ 10 MG/ML 4 ML VIAL IV SCH ×2 (08:37→18:50)
[2019-12-28] MEDS: ASPIRIN 81 MG CHEW TAB PO SCH (08:37)
[2019-12-28] MEDS ORDERED: SODIUM CHLORIDE 0.9% 250ML 250 ML ONE (12:01)
--- NOTE | 2019-12-28 12:16 | NUR ---
patient up in bed, tolerated lunch, walked with PT earlier, not in any distress, call light in reach, keep monitoring
[2019-12-28] MEDS: AZITHROMYCIN 500MG/NS 250 ML 250 ML IV SCH (12:30)
[2019-12-28] MEDS ORDERED: WARFARIN SOD 5 MG TAB PO SCH (17:00)
--- NOTE | 2019-12-28 18:05 | Progress Note ---
DATE: 12/28/2019 SUBJECTIVE: The patient is resting in chair with no acute distress, he reports shortness of breath and edema in the lower extremities, improving. He denies any chest pain, fever, chills, cough, nausea, or vomiting. PHYSICAL EXAMINATION: VITAL SIGNS: Temperature 98.4, pulse 59, respirations 18, blood pressure 131/67, pulse ox is 98% on 4 L of oxygen. GENERAL: No acute distress. HEENT: Normocephalic, atraumatic. NECK: Supple. LUNGS: Decreased breath sounds. CARDIOVASCULAR: Regular rate and rhythm. GI: Soft and nontender, obese. NEUROLOGIC: Alert, awake and oriented x3. MUSCULOSKELETAL: Moves all extremities. Right lower extremity edema greater than the left. SKIN: Dry. PSYCH: Calm. LABORATORY DATA: Sodium 139, potassium 3.9, BUN is 43, creatinine 1.93, glucose 199, calcium 7.8, CK 1323. IMPRESSION: 1. Dyspnea due to pulmonary edema. Chest x-ray is stable, afebrile, shortness of breath is improving. We will decrease Lasix IV to 40 b.i.d. 2. Acute kidney injury on chronic kidney disease. Creatinine is 1.93. We will decrease Lasix and monitor. 3. Hypertension. Continue on metoprolol and terazosin. 4. Diastolic congestive heart failure. Echo pending results, we will continue with diuresis and beta blockers. 5. Atrial fibrillation. Rate controlled on metoprolol. Continue Coumadin for cerebrovascular accident prophylaxis. INR is 1.5. We will increase his Coumadin dose to 7.5 daily. 6. Diabetes type 2. Hemoglobin A1c is 10. Uncontrolled. We will continue with sliding scale, lispro 20 units b.i.d. and Levemir 30 units at bedtime. 7. History of chronic obstructive pulmonary disease. p.r.n. nebs, O2 via nasal cannula. 8. High cholesterol. On statin. 9. Elevated CK 1323. May be due to over-diuresis. We will decrease his Lasix to 40 mg b.i.d. 10. Obesity with BMI of 37.8. 11. Bilateral lower extremity edema likely chronic due to lymphedema. Venous Doppler has been done pending on the results. 12. Deep vein thrombosis prophylaxis. On Coumadin and Lovenox. PLAN: Continue Lasix, we will repeat labs in a.m., physical therapy as tolerated. Dictated by Sierra Zapata, ANP MD ALIYAH Gonzales/MODL /[id number]
[2019-12-28] MEDS: WARFARIN SOD 2.5 MG TAB PO SCH (18:50)
[2019-12-28] MEDS: TERAZOSIN HCL 5 MG CAP PO SCH (21:17)
[2019-12-28] MEDS: ENOXAPARIN SODIUM INJ 100 MG/ML SYR SC SCH (21:23)
[2019-12-28] MEDS: ATORVASTATIN 40 MG TAB PO SCH (21:23)
[2019-12-28] MEDS: INSULIN GLARGINE 100 UNITS/ML VIAL SQ SCH (21:55)
--- NOTE | 2019-12-28 22:21 | Progress Note ---
DATE: 12/28/2019 Cardiology Progress Note The patient feels better today. He is less short of breath and leg swelling has improved. He has no other complaints. He has had no chest pain, chest discomfort, palpitations, dizziness, nausea, vomiting, fever or chills. PHYSICAL EXAMINATION: VITAL SIGNS: Blood pressure of 133/90 mmHg with a heart rate of 86 beats per minute. He is afebrile and his oxygen saturation is 97% on 4 L/minute via nasal cannula. GENERAL: He is in no acute distress. Sitting in a recliner. HEAD AND NECK: Normocephalic and atraumatic. Anicteric conjunctiva. LUNGS: Decreased breath sounds posteriorly. CARDIOVASCULAR: Regular rate and rhythm. Distant S1 and S2. ABDOMEN: Obese, soft, and nontender. EXTREMITIES: Have marked leg edema and lymphedema of both lower extremities. LABORATORY DATA: Reviewed. MEDICATIONS: Reviewed. ASSESSMENT AND PLAN: 1. Diastolic heart failure. Receiving diuretics. The patient's fluid balance since admission is about 3 L negative. He has not had further increase in his creatinine. His electrolytes are within reference range. 2. Paroxysmal atrial fibrillation. He is currently in sinus rhythm. Telemetry does not show any runs of atrial fibrillation. The patient is receiving Coumadin and Lovenox because of subtherapeutic INR. 3. Leg edema and lymph edema. By examination, there is a little improvement. However, the patient feels that he has improved. 4. Coronary artery disease, status post coronary bypass, asymptomatic and stable. 5. Diabetes type 2. Very poorly controlled. 6. Thrombocytopenia. He will have a CBC in the morning. Sudha Kaminski MD EC/MODL /[id number]
[2019-12-29] VITALS (7 sets, daily range): BP systolic 95–145; BP diastolic 31–91
[2019-12-29] MEDS: CEFTRIAXONE SOD 1 GM/NS 50 ML 50 ML IV SCH (00:20)
[2019-12-29 06:13] LABS: INR 1.69; PROTHROMBIN TIME 20.9 seconds (11.9-14.5)
[2019-12-29 06:19] LABS: ANION GAP 15.8 mmol/L (8-16); CALCIUM 7.7 mg/dL (8.4-10.2); CREATININE, SERUM 1.95 mg/dL (0.72-1.25); POTASSIUM 3.8 mmol/L (3.5-5.1)
[2019-12-29] MEDS: INSULIN LISPRO 100 UNIT/1 ML 3ML VIAL SQ SCH ×6 (07:43→21:00)
[2019-12-29] MEDS: GABAPENTIN 300 MG CAP PO SCH ×2 (08:26→18:04)
[2019-12-29] MEDS: METOPROLOL TARTRATE 25 MG TAB PO SCH ×2 (08:26→18:04)
[2019-12-29] MEDS: ASPIRIN 81 MG CHEW TAB PO SCH (08:26)
[2019-12-29] MEDS: FUROSEMIDE INJ 10 MG/ML 4 ML VIAL IV SCH ×2 (08:27→18:04)
--- NOTE | 2019-12-29 09:10 | NUR ---
IMM EXPLAINED TO PT, SIGNED BY PT AND PLACED ON CHART COPY TO PT IN CARE TRANSITIONS FOLDER PT REQUESTS COPY OF PROVIDER SERVICES, CM GAVE PT COPY OF SR GUIDANCE BOOK WITH MY BUSINESS CARD
[2019-12-29] MEDS: WARFARIN SOD 2.5 MG TAB PO SCH (18:04)
--- NOTE | 2019-12-29 18:22 | NUR ---
Patient resting in bed, Alert with no distress, THEODORE israele ON
[2019-12-29] MEDS: METOLAZONE 5 MG TAB PO SCH (18:54)
--- NOTE | 2019-12-29 19:04 | Progress Note ---
DATE: 12/29/2019 Cardiology Progress Note SUBJECTIVE: Mr. Souza continues to have shortness of breath and lower extremity edema. OBJECTIVE: VITAL SIGNS: Temperature 98.2, heart rate 52, blood pressure 95/31, respiratory rate 16, and O2 saturation 99%. BMI of 38. GENERAL: In no acute distress. Alert. NECK: Supple. CHEST: With decreased breath sounds in bilateral bases. CARDIOVASCULAR: Regular rate and rhythm. Normal S1 and S2. Systolic ejection murmur. ABDOMEN: Morbidly obese, soft. Bowel sounds positive. EXTREMITIES: With 3+ edema. CARDIOVASCULAR MEDICATIONS: Aspirin 81 mg daily, atorvastatin 80 mg at bedtime, warfarin 7.5 mg daily, furosemide 40 mg b.i.d., metoprolol tartrate 25 mg b.i.d., Lovenox 100 mg daily. STUDIES: Reviewed. Sodium 139, potassium 3.8 chloride 97, bicarbonate 30, BUN 45, creatinine 1.9, glucose 225. White blood cells 8.8, hemoglobin 11.3, and platelets 89. INR 1.6, PT 20.9, PTT 46. AST 27, ALT 19, alkaline phosphatase 76. Total bilirubin 0.6. ASSESSMENT: An 79-year-old man presents with [id number] diastolic heart failure, chronic obstructive pulmonary disease, hypertension, atrial fibrillation, acute renal failure on chronic kidney disease versus chronic kidney disease. RECOMMENDATION: Add metolazone to current regimen. Continue anticoagulation with warfarin for target INR 2 to 3. Continue beta-serafin, aspirin, and statin for CAD. MD FREDDIE Walker/ZORAIDA /[id number]
[2019-12-29] MEDS: INSULIN GLARGINE 100 UNITS/ML VIAL SQ SCH (21:00)
[2019-12-29] MEDS: TERAZOSIN HCL 5 MG CAP PO SCH (21:01)
[2019-12-29] MEDS: ENOXAPARIN SODIUM INJ 100 MG/ML SYR SC SCH (21:01)
[2019-12-29] MEDS: ATORVASTATIN 40 MG TAB PO SCH (21:01)
[2019-12-30] VITALS (9 sets, daily range): BP systolic 118–142; BP diastolic 45–82
[2019-12-30 06:24] LABS: INR 1.7
[2019-12-30 06:41] LABS: ANION GAP 14.6 mmol/L (8-16); CREATININE, SERUM 1.81 mg/dL (0.72-1.25); POTASSIUM 3.6 mmol/L (3.5-5.1)
--- NOTE | 2019-12-30 07:41 | Progress Note ---
DATE: 12/29/2019 SUBJECTIVE: The patient is sitting up in chair, noted right lower extremity with increased edema than the last. He is advised to elevate his leg when sitting up. He denies chest pain, nausea, vomiting, fever, or chills. Reports shortness of breath is improving some. PHYSICAL EXAMINATION: VITAL SIGNS: Temperature 98.2, pulse is 52, respirations 16, blood pressure 95/31, pulse ox 99% on 4 L of nasal cannula. GENERAL: In no acute distress. Obese. HEENT: Normocephalic, atraumatic. NECK: Supple. LUNGS: Decreased breath sounds. CARDIOVASCULAR: Regular rate and rhythm. GI: Soft and nontender. Obese. NEUROLOGIC: Alert, awake, and oriented x3. MUSCULOSKELETAL: Moves all extremities. Right lower extremity edema greater than left. SKIN: Dry. PSYCH: Calm. LABORATORY DATA: Sodium 139, potassium 3.8, CO2 30, BUN 45, creatinine 1.95. Estimated GFR 33, glucose 225. PT 20.9, INR 1.69. IMPRESSION: 1. Dyspnea due to pulmonary edema. Shortness of breath is improving. We will continue on Lasix. 2. Acute kidney injury on chronic kidney disease. Creatinine is 1.95. We will continue on Lasix 40 b.i.d. and add metolazone. 3. Hypertension. Controlled on metoprolol and terazosin. 4. Diastolic congestive heart failure. We will continue with beta-blockers and diuresis. 5. Atrial fibrillation. Rate controlled on metoprolol. Continue on Coumadin for CVA prophylaxis. 6. Diabetes type 2. Hemoglobin A1c is 10 uncontrolled. We will continue with sliding scale lispro 20 units b.i.d. and Levemir 30 units at night. 7. History of chronic obstructive pulmonary disease. Nebs p.r.n., O2 via nasal cannula 4 L. 8. High cholesterol. On statin. 9. Likely rhabdo with CK of 1323. With now, give fluid due to fluid overload with CHF. We will decrease Lasix and continue to monitor. 10. Bilateral lower extremity edema likely due to chronic lymphedema. Venous Doppler pending results. 11. Deep vein thrombosis prophylaxis. Currently on Coumadin and Lovenox until therapeutic. PLAN: Continue 1 daily Coumadin at 7.5 and Lovenox for bridging until INR is 2-3. Continue diuresis and physical therapy. Dictated by Sierra Zapata, ANP MD ALIYAH Gonzales/ZORAIDA /[id number]
[2019-12-30] MEDS: INSULIN LISPRO 100 UNIT/1 ML 3ML VIAL SQ SCH ×6 (08:29→21:02)
[2019-12-30] MEDS: METOPROLOL TARTRATE 25 MG TAB PO SCH ×2 (08:30→16:46)
[2019-12-30] MEDS: ASPIRIN 81 MG CHEW TAB PO SCH (08:30)
[2019-12-30] MEDS: GABAPENTIN 300 MG CAP PO SCH ×2 (08:30→16:45)
[2019-12-30] MEDS: METOLAZONE 5 MG TAB PO SCH (08:30)
[2019-12-30] MEDS: FUROSEMIDE INJ 10 MG/ML 4 ML VIAL IV SCH ×2 (08:30→16:45)
--- NOTE | 2019-12-30 12:36 | Progress Note ---
DATE: 12/30/2019 Cardiology Progress Note SUBJECTIVE: Edema to lower extremities improving today. No new complaints. OBJECTIVE: VITAL SIGNS: Temperature 97.7, heart rate 66, blood pressure 142/54, respiratory rate 20, O2 saturation 98%. GENERAL: No acute distress. Alert. NECK: No JVD. CHEST: With decreased breath sounds bilateral bases. CARDIOVASCULAR: Regular rate and rhythm. Normal S1, S2. Systolic ejection murmur. ABDOMEN: Soft. Bowel sounds positive. EXTREMITIES: 2+ edema and gradually compression socks in place. CARDIOVASCULAR MEDICATIONS: Reviewed. Aspirin 81 mg daily, atorvastatin 80 mg at bedtime, warfarin 7.5 mg daily, furosemide 40 mg IV b.i.d. and metolazone 5 mg daily p.o., Lovenox 100 mg subcu daily, metoprolol tartrate 25 mg every 12 hours. LABORATORY DATA: Reviewed. Sodium 140, potassium 3.6, chloride 94, bicarbonate 35, BUN 43, creatinine 1.8, glucose 218. White blood cells 8.8, hemoglobin 11.3, platelets 89. PT 21, PTT 46, INR 1.7. AST 27, ALT 19, alkaline phosphatase 76. Total bilirubin 0.6. ASSESSMENT AND PLAN: An 79-year-old man presents with paroxysmal atrial fibrillation, diabetes, hypertension, dyslipidemia, anemia, acute on chronic diastolic heart failure, coronary artery disease, chronic obstructive pulmonary disease, chronic kidney disease, volume overload. RECOMMENDATIONS: Continue diuretics. Noticeable improvement in volume status today, has a component of lymphedema. Monitor renal function closely, developing some contraction alkalosis and elevated BUN to creatinine ratio. Reassess tomorrow whether or not to continue metolazone. Otherwise, continue rest of cardiovascular medications. INR remains subtherapeutic. Consider up titrating warfarin dose if remains less than 2 by tomorrow. Continue Lovenox bridge for now. MD FREDDIE Walker/ZORAIDA /[id number]
--- NOTE | 2019-12-30 15:52 | Progress Note ---
DATE: 12/30/2019 SUBJECTIVE: The patient is lying in bed with no acute respiratory distress. Bilateral lower extremities edema is significantly improved. No fever or chills. PHYSICAL EXAMINATION: VITAL SIGNS: Temperature 97.0, pulse is 59, respirations 20, blood pressure 121/61, and pulse ox is 98% on 4 L of oxygen. GENERAL: No acute distress. HEENT: Normocephalic, atraumatic. LUNGS: With decreased breath sounds. CARDIOVASCULAR: Regular rate and rhythm. GI: Soft and nontender. Obese. NEUROLOGIC: Alert, awake, and oriented x3. MUSCULOSKELETAL: Moves all extremities. Right lower extremity edema improving some. SKIN: Dry. PSYCH: Calm. LABORATORY DATA: Sodium 140, potassium 3.6, CO2 of 35, BUN 43, creatinine 1.81, estimated GFR 36, CK 588. PT 21.0, INR 1.7. IMPRESSION: 1. Dyspnea due to pulmonary edema. Shortness of breath is resolved. We will continue with Lasix and metolazone. 2. Acute kidney injury on chronic kidney disease. Creatinine is 1.8. Improving some. We will continue with Lasix and metolazone. 3. Hypertension. Controlled on metoprolol and terazosin. 4. Diastolic congestive heart failure. Continue beta blockers and diureses. 5. Atrial fibrillation. Rate is controlled on metoprolol. On Coumadin for cerebrovascular accident prophylaxis. 6. Uncontrolled diabetes type 2. Hemoglobin A1c of 10. Continue sliding scale insulin, lispro 20 units b.i.d. and Levemir 30 units at night. 7. History of chronic obstructive pulmonary disease. Nebs p.r.n. He is oxygen-dependent. 8. High cholesterol. On statin. 9. Rhabdomyolysis, improving. CK is 500. We will continue to monitor. 10. Bilateral lower extremity edema. Likely due to chronic lymphedema. Venous Doppler done, pending final results. 11. Subtherapeutic INR. INR is 1.7. We will continue with 7.5 mg of Coumadin daily and bridging with Lovenox. 12. Deep vein thrombosis prophylaxis. On Coumadin and Lovenox. Dictated by Sierra Zapata, EVELYNE Gretchen Loco MD MY/MODL /[id number]
[2019-12-30] MEDS: WARFARIN SOD 2.5 MG TAB PO SCH (16:45)
--- NOTE | 2019-12-30 19:55 | NUR ---
BEDSIDE SHIFT REPORT RECEIVED FROM DAY RN.02 ON AT 4 L PER N/C. LUNGS CLEAR. RESPIRATIONS ARE EVEN AND UNLABORED. NO COUGH. TELE ON. ANA CRISTINA PICC LINE SL- DOUBLE LUMEN. SITE HEALTHY. PT VOIDING WITHOUT DIFFICULTY PER URINAL. 2+NONPITTING EDEMA NOTED IN BILATERAL LOWER EXTREMITIES.CALL LIGHT WITHIN REACH. BED LOCKED IN LOW POSITION.
[2019-12-30] MEDS: ATORVASTATIN 40 MG TAB PO SCH (21:00)
[2019-12-30] MEDS: TERAZOSIN HCL 5 MG CAP PO SCH (21:00)
[2019-12-30] MEDS: ENOXAPARIN SODIUM INJ 100 MG/ML SYR SC SCH (21:01)
[2019-12-30] MEDS: INSULIN GLARGINE 100 UNITS/ML VIAL SQ SCH (21:10)
[2019-12-31] VITALS (7 sets, daily range): BP systolic 103–139; BP diastolic 46–62
[2019-12-31] MEDS: FUROSEMIDE INJ 10 MG/ML 4 ML VIAL IV SCH ×3 (06:00→16:38)
[2019-12-31 06:04] LABS: INR 1.94; PROTHROMBIN TIME 23.1 seconds (11.9-14.5)
[2019-12-31 06:15] LABS: ANION GAP 12.6 mmol/L (8-16); CREATININE, SERUM 1.99 mg/dL (0.72-1.25); POTASSIUM 3.6 mmol/L (3.5-5.1)
[2019-12-31] MEDS: METOPROLOL TARTRATE 25 MG TAB PO SCH ×2 (09:07→16:39)
[2019-12-31] MEDS: METOLAZONE 5 MG TAB PO SCH (09:07)
[2019-12-31] MEDS: ASPIRIN 81 MG CHEW TAB PO SCH (09:07)
[2019-12-31] MEDS: GABAPENTIN 300 MG CAP PO SCH ×2 (09:07→16:38)
[2019-12-31] MEDS: INSULIN LISPRO 100 UNIT/1 ML 3ML VIAL SQ SCH ×6 (09:11→21:30)
[2019-12-31] MEDS: WARFARIN SOD 2.5 MG TAB PO SCH (16:38)
--- NOTE | 2019-12-31 19:40 | NUR ---
BEDSIDE SHIFT REPORT RECEIVED FROM DAY RN. PT IS ALERT AND ORIENTED X3. RESPIRATIONS ARE EVEN AND UNLABORED. TELE ON. LUNGS CLEAR. O2 AT 4L PER N/C ON.ABDOMEN SOFT. bOWEL SOUNDS PRESENT. PT VOIDING PER URINAL. URINE IS CLEAR YELLOW IN COLOR. LEFT FOOT EDEMA DECREASED. RT FOOT SWOLLEN NONPITTING EDEMA. LEFT UPPER ARM DL PICC. SITE HEALTHY. BOTH SITES FLUSH EASILY WITH GOOD BLOOD RETURN.CALL LIGHT WITHIN REACH. BED LOCKED AND IN LOW POSITION. PT VERBALIZED DOSE OF GABAPENTIN.WILL PASS ON TO DAY RN.
[2019-12-31] MEDS: ATORVASTATIN 40 MG TAB PO SCH (21:14)
[2019-12-31] MEDS: ENOXAPARIN SODIUM INJ 100 MG/ML SYR SC SCH (21:26)
[2019-12-31] MEDS: TERAZOSIN HCL 5 MG CAP PO SCH (21:45)
[2019-12-31] MEDS: INSULIN GLARGINE 100 UNITS/ML VIAL SQ SCH (21:47)
[2020-01-01 01:00] VITALS: BP 112/52
[2020-01-01 05:56] LABS: INR 2.04
[2020-01-01 06:09] LABS: ANION GAP 16.6 mmol/L (8-16); CALCIUM 8.1 mg/dL (8.4-10.2); CREATININE, SERUM 2.01 mg/dL (0.72-1.25); POTASSIUM 3.6 mmol/L (3.5-5.1)
[2020-01-01 06:44] VITALS: BP 121/50
[2020-01-01 06:48] LABS: BASOPHILS % 0.5 % (0.0-1.0); EOSINOPHILS # (AUTO) 0.6 (0.0-0.4); EOSINOPHILS % 6.9 % (0.0-6.0); HEMATOCRIT 34.6 % (38.2-49.6); HEMOGLOBIN 10.8 g/dL (14.0-18.0); LYMPHOCYTES # (AUTO) 1.7 (1.0-3.2); LYMPHOCYTES % 21.2 % (18.0-39.1); MEAN CORPUSCULAR HEMOGLOBIN 27.1 pg (28-32); MEAN CORPUSCULAR HGB CONC 31.2 g/dL (31-35); MEAN CORPUSCULAR VOLUME 86.9 fL (81-99); MONOCYTES # (AUTO) 0.8 (0.2-0.8); MONOCYTES % 10.5 % (4.4-11.3); NEUTROPHILS # (AUTO) 4.8 (2.1-6.9); NEUTROPHILS % 60.5 % (38.7-80.0); PLATELET COUNT 127 x10e3/uL (140-360); RED BLOOD COUNT 3.98 x10e6/uL (4.3-5.7)
[2020-01-01 07:50] VITALS: BP 129/55
[2020-01-01 08:41] VITALS: BP 129/55
[2020-01-01] MEDS: GABAPENTIN 300 MG CAP PO SCH (09:01)
[2020-01-01] MEDS: FUROSEMIDE INJ 10 MG/ML 4 ML VIAL IV SCH (09:01)
[2020-01-01] MEDS: ASPIRIN 81 MG CHEW TAB PO SCH (09:01)
[2020-01-01] MEDS: METOLAZONE 5 MG TAB PO SCH (09:02)
[2020-01-01] MEDS: METOPROLOL TARTRATE 25 MG TAB PO SCH (09:02)
[2020-01-01] MEDS: INSULIN LISPRO 100 UNIT/1 ML 3ML VIAL SQ SCH ×3 (09:04→11:30)
[2020-01-01 12:29] VITALS: BP 120/75
--- NOTE | 2020-01-01 12:56 | NUR ---
Left Upper arm Picc line discontinued. No signs of infiltration noted. 2x2 gauze and coban placed. Taken via wheelchair to taxi. AAOx3 to time, person, place. Respirations even and unlabored. O2 4L via personal tank for comfort. Discharge instructions and all personal belongings taken with patient. No rx available. Addendum: 01/01/20 at 1425 by BECKA JOSE RN 44cm removed. Tip intact
--- NOTE | 2020-01-01 19:51 | Progress Note ---
DATE: 12/31/2019 SUBJECTIVE: The patient is sitting up in the recliner with significant improvement of the bilateral lower extremity edema. THEODORE stockings in place and voiding well. He denies any chest pain, shortness of breath, nausea, or vomiting. PHYSICAL EXAMINATION: VITAL SIGNS: Temperature 97.7, pulse is 68, respirations 20, blood pressure 139/62, pulse ox 95% on 2 L of oxygen. GENERAL: No acute distress. HEENT: Normocephalic, atraumatic. NECK: Supple. LUNGS: Decreased breath sounds. CARDIOVASCULAR: Regular rate and rhythm. GI: Soft and nontender, obese. NEUROLOGIC: Alert, awake, and oriented x3 MUSCULOSKELETAL: Moves all extremities, improved edema right greater than left. SKIN: Dry. PSYCH: Calm. LABORATORY DATA: Sodium 139, potassium 3.9, CO2 38, BUN 46, creatinine 1.99, estimated GFR 32, glucose 233, calcium 8.0, PT 23.1, INR 1.94. IMPRESSION: 1. Dyspnea due to pulmonary edema. Improving with IV Lasix and metolazone. 2. Acute kidney injury on chronic kidney disease. Creatinine is at 1.9, we will continue to monitor. We will decrease IV Lasix to once daily and resume metolazone. 3. Hypertension. Controlled on metoprolol and terazosin. 4. Diastolic congestive heart failure. Continue beta blockers and diuretics. 5. Atrial fibrillation. Rate is controlled on metoprolol. On Coumadin for cerebrovascular accident prophylaxis. INR 1.9. Continue Lovenox for bridging. 6. Uncontrolled diabetes. Hemoglobin A1c 10, continue sliding scale and lispro 20 units b.i.d. with Levemir at bedtime. 7. History of chronic obstructive pulmonary disease. Oxygen dependent, nebs as needed. 8. High cholesterol. On statin. 9. Bilateral lower extremity edema with history of lymphedema. Venous Doppler is negative. THEODORE stockings applied. 10. DVT prophylaxis. Continue on Coumadin and Lovenox for bridging. PLAN: Continue with current dose of Coumadin 7.5 mg daily, INR is 1.9. Edema and shortness of breath have improved. We will plan on discharge tomorrow on current medications. Dictated by Sierra Zapata, ANP MD ALIYAH Gonzales/PATELL /[id number]
--- NOTE | 2020-01-01 19:52 | Progress Note ---
DATE: 12/31/2019 CARDIOLOGY PROGRESS NOTE: SUBJECTIVE: No complaints. OBJECTIVE: VITAL SIGNS: Temperature 97, heart rate 69, blood pressure 115/48, respiratory rate 20, O2 saturation 97%. GENERAL: In no acute distress. NECK: Supple. CHEST: Clear to auscultation. CARDIOVASCULAR: Regular rate and rhythm. Systolic murmur. ABDOMEN: Soft. Bowel sounds positive. EXTREMITIES: 2+ edema. CARDIOVASCULAR MEDICATIONS: Reviewed. Aspirin 81 mg daily, atorvastatin 80 mg at bedtime, warfarin 7.5 mg daily, furosemide 40 mg IV b.i.d., metolazone 5 mg daily. STUDIES: Reviewed. Sodium 139, potassium 3.6, chloride 92, bicarbonate 38, BUN 46 and creatinine 1.99, glucose 233. White blood cells 8.8, hemoglobin 11.3, platelets 89. INR 1.9. AST 27, ALT 19. ASSESSMENT AND PLAN: 1. An 79-year-old man presents with acute on chronic diastolic heart failure, atrial fibrillation, chronic obstructive pulmonary disease, hypertension, dyslipidemia, diabetes, morbid obesity, lymphedema, anemia, thrombocytopenia. Recommend continue warfarin, target INR almost reached 2-3, for paroxysmal atrial fibrillation. 2. Starting tomorrow, consider DC metolazone. Continue furosemide. Continue rest of cardiovascular medication. Seth Garcia MD AFCecy/ZORAIDA /[id number]
--- NOTE | 2020-01-01 23:33 | Discharge Summary ---
PRIMARY CARE PHYSICIAN: Dr. Jacobson at [facility]. FINAL DISCHARGE DIAGNOSES: 1. Dyspnea due to pulmonary edema. 2. Acute kidney injury on chronic kidney disease. 3. Hypertension. 4. Acute diastolic congestive heart failure with exacerbation. 5. Atrial fibrillation. 6. Uncontrolled diabetes type 2. 7. Chronic obstructive pulmonary disease without exacerbation. 8. High cholesterol. 9. Bilateral lower extremity edema with chronic lymphedema. 10. Subtherapeutic INR. ROTARY DERRICK OPERATOR: Dr. Malcolm with Cardiology. PROCEDURES: Venous Doppler is negative for DVT and echocardiogram with EF of 55% to 60%. HISTORY: Per HPI. HOSPITAL COURSE: Mr. Souza presented to the ER with complaints of increased shortness of breath and bilateral lower extremity edema, increased more than usual. He reports he has been taking his medication, but his dyspnea had increased. Cultures were negative. Chest x-ray upon arrival showed consolidation, effusion, and atelectasis. He was started on aggressive diuresis with IV Lasix. Cardiology was consulted, echocardiogram was stable with an EF of 55% to 60%. Venous Doppler was negative for acute DVT. He continues to improve. INR was subtherapeutic at 1.57 upon arrival. He was started on Coumadin 7.5 mg daily and bridging with Lovenox. Today, his INR is 2.04. Advised to take 7.5 mg Coumadin Wednesday to Wednesday and 5 mg on the weekends. He has a home health nurse, who would be checking his INR on a weekly basis. His breathing is much improved, as well as his bilateral lower extremities given his chronic lymphedema. He denies any chest pain. He is afebrile. We will discharge home to follow up with his PCP and workplace trainer and assessor in 1 to 2 weeks. PHYSICAL EXAMINATION: VITAL SIGNS: Temperature 98.2, pulse of 56, respirations 20, blood pressure 120/75, pulse ox is 94% on 4 L of nasal cannula. GENERAL: No acute distress. HEENT: Normocephalic and atraumatic. NECK: Supple. LUNGS: Decreased breath sounds. ABDOMEN: Soft, obese, nontender. MUSCULOSKELETAL: Moves all extremities with +1 edema. NEUROLOGIC: Alert, awake, and oriented x3. PSYCH: Calm. CONDITION AT DISCHARGE: Improved and stable. DISCHARGE MEDICATIONS: Please see medication reconciliation list. FOLLOWUP: Follow up with PCP and workplace trainer and assessor in 1 to 2 weeks. TIME SPENT: Total discharge time is 31 minutes. Dictated by Sierra Zapata, ANP MD ALIYAH Gonzales/MODL /[id number] cc: Brenda Jacobson MD [facility]
== END 2020-01-01 13:04 | disposition home or self-care (01) | DRG 291 ==
LOC: ER 11:09 → ERHOLD 13:48 → MED/SURG 19:16
PROVIDERS: ADMIT Internal Medicine; ATTEND Internal Medicine
PROC: 02HV33Z Insertion of Infusion Device into Superior Vena Cava, Percutaneous Approach (ICD-10-PCS; principal; 2019-12-26)
PROC: B548ZZA Ultrasonography of Superior Vena Cava, Guidance (ICD-10-PCS; 2019-12-26)
DX: I13.0 Hypertensive heart and chronic kidney disease with heart failure and stage 1 through stage 4 chronic kidney disease, or unspecified chronic kidney disease (principal); I50.33 Acute on chronic diastolic (congestive) heart failure; N17.9 Acute kidney failure, unspecified; M62.82 Rhabdomyolysis; I44.7 Left bundle-branch block, unspecified; R06.03 Acute respiratory distress; E66.01 Morbid (severe) obesity due to excess calories; N18.3 Chronic kidney disease, stage 3 (moderate); E11.22 Type 2 diabetes mellitus with diabetic chronic kidney disease; I25.10 Atherosclerotic heart disease of native coronary artery without angina pectoris; J44.9 Chronic obstructive pulmonary disease, unspecified; I48.0 Paroxysmal atrial fibrillation; E78.5 Hyperlipidemia, unspecified; E11.42 Type 2 diabetes mellitus with diabetic polyneuropathy; Z99.81 Dependence on supplemental oxygen; Z95.1 Presence of aortocoronary bypass graft; Z88.1 Allergy status to other antibiotic agents; Z88.8 Allergy status to other drugs, medicaments and biological substances; Z90.49 Acquired absence of other specified parts of digestive tract; Z83.3 Family history of diabetes mellitus; Z82.49 Family history of ischemic heart disease and other diseases of the circulatory system; Z68.37 Body mass index [BMI] 37.0-37.9, adult; Z79.01 Long term (current) use of anticoagulants; Z95.5 Presence of coronary angioplasty implant and graft; D64.9 Anemia, unspecified; E11.65 Type 2 diabetes mellitus with hyperglycemia; D69.6 Thrombocytopenia, unspecified; Z11.59 Encounter for screening for other viral diseases; Z79.82 Long term (current) use of aspirin; Z79.4 Long term (current) use of insulin
CPT/HCPCS: 36415; 36569; 36600; 71045; 80048; 80053; 80061; 81001; 82550; 82553; 82805; 82948; 83036; 83735; 83880; 84443; 84484; 85025; 85610; 85730; 87040; 87086; 93005; 93306; 93970; 96372; 97139; 99284; J0456; J0696; J1650; J1815; J1940; J2930; J7050; U0002